=== PATIENT | female | born 1990 | race Caucasian/White ===

== ENCOUNTER 2019-11-02 23:17 | Emergency (ER) | payer SELFPAY ==
[2019-11-02 23:20] VITALS: BP 121/89; PULSE 94; RESP 16; TEMP 37; O2SAT 98
--- NOTE | 2019-11-02 23:27 | ED.GENADUL_ITS ---
Discharge Plan Disposition Patient Disposition: HOME Condition: Improving Discharge Details Chief Complaint: Allergic Clinical Impression: Allergic reaction Primary Care Provider: Tim Kim ED Provider: Ron Mcrae Home Meds and New Rx's Prescriptions: New prednisone 20 mg tablet 20 mg PO DAILY Qty: 3 RF: 0 Continued amitriptyline 10 mg Tablet 20 mg PO QHS RF: 0 gabapentin 300 mg Capsule 900 mg PO TID RF: 0 Hydroxycut 1 tab PO TID RF: 0 No Action paroxetine HCl 20 mg Tablet 20 mg PO DAILY RF: 0 Discharge Instructions Instructions: General Allergic Reaction (ED) Additional Instructions: Home to rest today. I recommend you place Paxil on hold until he can discuss further use with your prescribing physician. Please take prednisone as prescribed for 3 days. You may continue the use of Benadryl 25 mg every 4-6 hours as needed for itching or throat swelling. Return if you feel you have difficulty breathing, increased throat swelling, change to voice, or any other acute concerns. Medical Decision Making 29-year-old female presents from home with approximately 1 hour of sensation of tongue swelling and slight difficulty swallowing. No change to voice and no difficulty breathing. She notes that she started Paxil, dose #2 was this morning, no other suspicious food contacts or new medications. She arrives with unremarkable vital signs, reassuring examination. Does appear consistent with mild allergic reaction patient given parenteral fluids, steroids, histamine elise. Patient improved following medications. I will place her on a additional 2 days of prednisone to prevent recrudescence of symptoms. I recommended that she place Paxil (she has only had 2 doses) on hold and she will discuss further use with the prescribing physician. HPI General Mode of arrival: ambulatory . Date/Time Provider Initiated Documentation: 11/02/19 23:18 . Limitations to Documentation: no limitations . Information obtained by: patient . History of Present Illness 29 year old F presents to the emergency department with the chief complaint of Tongue swelling, no difficulty breathing or change to voice, described as moderate, Quality is described as constant, and is localized to the face and mouth. Patient reports no radiation. Patient started experiencing this hour(s) and it has been constant. No relieving factors improve symptom(s), No exacerbating factors reported . Patient notes denies chest pain, cough, headaches, loss of appetite, nausea/vomiting, shortness of breath and syncope. Patient did receive the following treatments prior to arrival, none Related Data Home Medications Medication Instructions Recorded Confirmed Hydroxycut 1 tab PO TID 11/02/19 amitriptyline 20 mg PO QHS 11/02/19 11/02/19 gabapentin 900 mg PO TID 11/02/19 11/02/19 paroxetine HCl 20 mg PO DAILY 11/02/19 11/02/19 prednisone 20 mg PO DAILY #3 tab 11/03/19 Previous Rx's Medication Instructions Recorded prednisone 20 mg PO DAILY #3 tab 11/03/19 Allergies Allergy/AdvReac Type Severity Reaction Status Date / Time ibuprofen Allergy Severe THROAT Unverified 11/11/17 18:12 SWELLS codeine Allergy Intermediate HIVES Unverified 11/11/17 18:12 penicillin G Allergy Intermediate RASH,HIVES Unverified 11/11/17 18:12 General Stated Complaint: Allergic FRITZ: 2 Review of Systems Narrative: 6 systems reviewed and otherwise negative. Recently started Paxil, dose #2 was this morning. No other new medications, no suspicious food ingestions. [facility] Social History Smoking/Tobacco Use Status: Current every day Tobacco Type: cigarettes Alcohol Intake: current Alcohol Intake frequency: holidays/special occasions only Drug use: Current Sobriety Substance use type: marijuana Do you feel safe at home: Yes Do you feel safe in your relationship?: Yes Exam Narrative Exam Narrative: GEN: awake, alert, oriented 3. Pleasant, well groomed, interactive. HEAD: Normocephalic, atraumatic ENT: Mucous membranes moist, oropharynx unremarkable without evidence of significant soft tissue swelling or asymmetry, uvula midline, external ear exam unremarkable EYES: PERRL, EOMI NECK: Full ROM, no UMBERTO, no menigismus CHEST/RESP: Nontender, clear to auscultation bilateral, no wheeze/rhonchi/rales CARDIOVASCULAR: RRR, no murmur, rub matt. 2+ Rad pulse bilateral ABDOMEN: Soft, nontender, no mass. +Bowel sounds EXT: Full ROM, no edema, no rash Neuro: Grossly normal neurologic exam, conversant, interactive. Psych: Speech fluent, thoughts congruent, affect normal Course Vital Signs Vital signs: Vital Signs Temperature 37.0 C 11/02/19 23:20 Pulse 94 H 11/02/19 23:20 Respiratory Rate 16 11/02/19 23:20 Blood Pressure 121/89 11/02/19 23:20 Pulse Oximetry 98 11/02/19 23:20 Temperature 37.0 C 11/02/19 23:20 Temperature Source Skin 11/02/19 23:20 Pulse 94 H 11/02/19 23:20 Respiratory Rate 16 11/02/19 23:20 Blood Pressure 121/89 11/02/19 23:20 Blood Pressure Position Sitting 11/02/19 23:20 Pulse Oximetry 98 11/02/19 23:20 Oxygen Delivery Method Room Air 11/02/19 23:20 Oxygen Flow Rate 0 11/02/19 23:20
[2019-11-02] MEDS: methylPREDNISolone SUCC 125 MG VIAL IVP (23:34)
[2019-11-02] MEDS: diphenhydrAMINE 50 MG/ML VIAL 25 MG IVP (23:34)
[2019-11-02] MEDS: Normal Saline 1,000 ML 1000 ML IV (23:34)
--- NOTE | 2019-11-03 00:11 | NUR.NOTE ---
Tongue swelling decreased. Pt reports feeling better. NS continues to infuse.
[2019-11-03 00:29] VITALS: BP 116/69; PULSE 81; RESP 16; TEMP 36.8; O2SAT 99
== END 2019-11-03 00:35 | disposition home or self-care (01) ==
LOC: ER 11-03 00:36
PROVIDERS: Emergency Provider Emergency Medicine; PCP Internal Medicine
DX: R13.10 Dysphagia, unspecified (principal); T43.225A Adverse effect of selective serotonin reuptake inhibitors, initial encounter
CPT/HCPCS: 99283; J1200; J2930

== ENCOUNTER 2020-02-07 16:49 | Observation (INO) | payer MEDICAID, SELFPAY ==
[2020-02-07 16:54] VITALS: BP 108/57; PULSE 81; RESP 16; TEMP 36.6; O2SAT 98
--- NOTE | 2020-02-07 17:07 | W.ED.GENAD ---
Discharge Plan Disposition Patient Disposition: [facility] INPATIENT Condition: Stable Discharge Details Chief Complaint: PsychEval Clinical Impression: Depression Primary Care Provider: Tim Kim ED Provider: Ady Christian Home Meds and New Rx's Prescriptions: No Action pregabalin [Lyrica] 75 mg capsule 75 mg PO BID RF: 0 lorazepam [Ativan] 0.5 mg tablet 0.5 mg PO ONCE PRNRF: 0 sumatriptan succinate [Imitrex] 100 mg tablet See Rx Instructions PO .COMPLEX RF: 0 clindamycin phosphate 1 % gel 1 applic TP BID RF: 0 tretinoin 0.1 % cream 1 applic TP QHS RF: 0 sertraline 50 mg tablet 50 mg PO DAILY RF: 0 Medical Decision Making 29 yo female with hx of depression states it has been worsening over a week or so and has had thoughts of self harm hasn't done anything to harm herself. Denies drug use, is currently caox4 with no focal deficits denies fevers no infectious symptoms and no findings to suggest underlying endocrine or infectious etiology. She was seen by mental health already and is a voluntary psychiatric bed placement. per [facility] no beds available will admit here until psych bed found Differential Diagnosis Differential Diagnosis: depression, si Medical Records Medical records reviewed: Yes I reviewed the patient's medical records. Lab Data Lab results reviewed: Yes I reviewed the patient's lab results. HPI General Mode of arrival: ambulatory. Date/Time Provider Initiated Documentation: 02/07/20 16:57. Limitations to Documentation: no limitations. Information obtained by: patient. History of Present Illness 29 year old F presents to the emergency department with the chief complaint of depression , described as moderate, No relieving factors improve symptom(s), No exacerbating factors reported . Patient did receive the following treatments prior to arrival, none Related Data Home Medications Medication Instructions Recorded Confirmed clindamycin phosphate 1 % topical 1 applic TP BID 01/23/20 02/07/20 gel lorazepam 0.5 mg tablet 0.5 mg PO ONCE PRN tab 01/23/20 02/07/20 pregabalin 75 mg capsule 75 mg PO BID 01/23/20 02/07/20 sertraline 50 mg tablet 50 mg PO DAILY 01/23/20 02/07/20 sumatriptan succinate 100 mg tablet See Rx Instructions PO .COMPLEX 01/23/20 02/07/20 tretinoin 0.1 % topical cream 1 applic TP QHS 01/23/20 02/07/20 Allergies Allergy/AdvReac Type Severity Reaction Status Date / Time ibuprofen Allergy Severe THROAT Unverified 02/07/20 16:58 SWELLS paroxetine [From Paxil] Allergy Severe Verified 02/07/20 16:58 codeine Allergy Intermediate HIVES Unverified 02/07/20 16:58 penicillin G Allergy Intermediate RASH,HIVES Unverified 02/07/20 16:58 methylphenidate Allergy Mild Verified 02/07/20 16:58 [From Concerta] General Stated Complaint: PsychEval FRITZ: 2 Review of Systems All systems reviewed & are unremarkable except as noted in HPI and below Constitutional Constitutional: Denies chills, Denies fever(s) and Denies weakness Cardiovascular Cardiovascular: Denies chest pain and Denies dyspnea Respiratory Respiratory: Denies cough and Denies dyspnea Gastrointestinal Gastrointestinal: Denies abdominal pain, Denies nausea and Denies vomiting Musculoskeletal Musculoskeletal: Denies joint swelling Neurologic Neurologic: Denies weakness [facility] Medical History Abnormal weight gain (Acute) Acute recurrent otitis media (Acute) ADHD (Acute) Anxiety (Chronic) Bilateral leg pain (Acute) Drug abuse, IV (Acute) History of depression (Acute) Hx of varicella (Acute) Idiopathic peripheral neuropathy (Acute) Migraine (Chronic) Opioid dependence (Acute) Panic disorder (Acute) Tobacco use (Acute) Social History Smoking/Tobacco Use Status: Current every day Tobacco Type: cigarettes Alcohol Intake: current Alcohol Intake frequency: a few times a week Drug use: Current Sobriety Substance use type: marijuana Details: pot once a month for leg pain. Do you feel safe at home: Yes Do you feel safe in your relationship?: Yes Exam Const General: no acute distress Orientation: alert HENMT Head: normal to inspection Ears: external ears normal General nose exam: external nose normal Mouth: moist mucous membranes Eyes General: appearance normal, both eyes and all related structures Neck Neck: normal visual inspection Resp Effort & Inspection: normal respiratory effort and able to speak in complete sentences Cardio Rate: regular rate Skin General skin exam: no rashes or lesions noted Neuro General: patient alert and patient oriented x3 Extrem General: normal to inspection Course Vital Signs Vital signs: Vital Signs Temperature 36.6 C 02/07/20 16:54 Pulse 81 02/07/20 16:54 Respiratory Rate 16 02/07/20 16:54 Blood Pressure 108/57 L 02/07/20 16:54 Pulse Oximetry 98 02/07/20 16:54 Temperature 36.6 C 02/07/20 16:54 Temperature Source Skin 02/07/20 16:54 Pulse 81 02/07/20 16:54 Respiratory Rate 16 02/07/20 16:54 Respiratory Effort Non-Labored 02/07/20 16:54 Blood Pressure 108/57 L 02/07/20 16:54 Blood Pressure Position Sitting 02/07/20 16:54 Pulse Oximetry 98 02/07/20 16:54 Oxygen Delivery Method Room Air 02/07/20 16:54 Oxygen Flow Rate 0 02/07/20 16:54 Pain Level 7 02/07/20 16:54 Comment 02/07/20 16:54
[2020-02-07 17:25] LABS: Bilirubin Negative (Negative); Blood Trace-intact (Negative); Clarity Clear (Clear); Glucose Negative (Negative); Ketones Trace mg/dL (Negative); Leukocyte Esterase Negative (Negative); Nitrite Negative (Negative); Specific Gravity 1.025 (1.005-1.025); pH 6.5 (5-8)
[2020-02-07 17:29] LABS: *AMPHETAMINES SCREEN URINE Negative (Negative); *BARBITURATES SCREEN URINE Negative (Negative); *BENZODIAZEPINES SCREEN URINE Negative (Negative); Cannabinoids THC Negative (Negative); Cocaine Screen,Urine Negative (Negative); METHADONE URINE SCREEN Negative (Negative); OPIATES URINE SCREEN Negative (Negative)
[2020-02-07 17:30] LABS: Tricyclic Antidepressants Negative (Negative)
--- NOTE | 2020-02-07 17:32 | HPE_ITS ---
Date of service: 02/07/20 Time of Service: 17:32 Assessment and Plan Assessment and plan (1) Suicidal ideation: Start date: 02/07/20 Status: Acute Assessment and plan: This is a 29-year-old lady with depression anxiety chronically who has had increasing suicidal ideation without action but a plan taking all of her medications over the last week. This was worsening and she reported to the ED for evaluation with no help to place for voluntary inpatient psychiatric evaluation. She is medically cleared for placement. She will be maintained on observation overnight. (2) Depression with anxiety: Status: Chronic Assessment and plan: Patient will be maintained on her usual medications during her hospital stay. She will be given lorazepam as needed with 1 dose given in the ED. (3) Idiopathic peripheral neuropathy: Status: Chronic Assessment and plan: Continue Lyrica daily with naproxen as needed. (4) Migraine: Status: Chronic Assessment and plan: Patient had sumatriptan p.o. in the ED and this will be continued as needed. Qualifiers: Migraine type: without aura Status migrainosus presence: without status migrainosus Intractability: not intractable Qualified Code(s): G43.009 - Migraine without aura, not intractable, without status migrainosus (5) Opioid dependence: Status: Chronic Assessment and plan: Patient has a history of previous IV opiate abuse documented sequela. She is not actively using and we donot expect withdrawal. Qualifiers: Substance use status: in remission Qualified Code(s): F11.21 - Opioid dependence, in remission History of Present Illness History of Present Illness Chief Complaint: Suicidal ideation Narrative: This is a 29-year-old female patient with chronic depression and anxiety with previous opioid use but not actively, who had thoughts of self-harm over the last week. She had not done any to harm herself. She did state that her plan was to take all of her pills. She has no sedating medications at home. She does have idiopathic peripheral neuropathy on Lyrica and does have migraines for which she takes oral sumatriptan. She was seen in the ED and medically cleared for inpatient psychiatric care but with no bed available was observed overnight. She did have some myalgias and a mild headache which were treated upon admission. She asked for naproxen which was not on her medication list and with allergy ibuprofen with throat swelling, she states she does take naproxen daily without reaction. Upon interview she was calm and cooperative checking her iP britta frequently with a 7-year-old child at home. She was allowed to keep her iPhone in the room as a calming measure. Review of Systems Narrative: 13 point review of systems otherwise unrevealing or stable. Patient is thin and she does smoke tobacco but not want nicotine supplement stating she was allergic to the adhesive. [facility] Medical History Abnormal weight gain (Acute) Acute recurrent otitis media (Acute) ADHD (Acute) Anxiety (Chronic) Bilateral leg pain (Acute) Drug abuse, IV (Acute) History of depression (Acute) Hx of varicella (Acute) Idiopathic peripheral neuropathy (Acute) Migraine (Chronic) Opioid dependence (Acute) Panic disorder (Acute) Tobacco use (Acute) Social History Smoking/Tobacco Use Status: Current every day Tobacco Type: cigarettes Alcohol Intake: current Alcohol Intake frequency: a few times a week Drug use: Current Sobriety Substance use type: marijuana Details: pot once a month for leg pain. Do you feel safe at home: Yes Do you feel safe in your relationship?: Yes Meds Home Medications and Allergies Home Medications Medication Instructions Recorded Confirmed Type clindamycin phosphate 1 % topical 1 applic TP BID 01/23/20 02/07/20 History gel lorazepam 0.5 mg tablet 0.5 mg PO ONCE PRN tab 01/23/20 02/07/20 History pregabalin 75 mg capsule 75 mg PO BID 01/23/20 02/07/20 History sertraline 50 mg tablet 50 mg PO DAILY 01/23/20 02/07/20 History sumatriptan succinate 100 mg tablet See Rx Instructions PO .COMPLEX 01/23/20 02/07/20 History tretinoin 0.1 % topical cream 1 applic TP QHS 01/23/20 02/07/20 History naproxen 250 mg PO BID PRN 02/07/20 02/07/20 History Allergies Allergy/AdvReac Type Severity Reaction Status Date / Time ibuprofen Allergy Severe THROAT Unverified 02/07/20 16:58 SWELLS paroxetine [From Paxil] Allergy Severe Verified 02/07/20 16:58 codeine Allergy Intermediate HIVES Unverified 02/07/20 16:58 penicillin G Allergy Intermediate RASH,HIVES Unverified 02/07/20 16:58 methylphenidate Allergy Mild Verified 02/07/20 16:58 [From Concerta] Exam Narrative Exam Narrative: General: Patient is thin, in no acute distress and alert and oriented x3. She flattened affect with poor eye contact and fidgety. HEENT: Normocephalic with face atraumatic except for nose ring. Eyes with pupils equal and reactive to light symmetrically, extraocular movement intact and sclera anicteric. Oropharynx with moist mucosa and fair dentition. External ears normal. Nose without lesions and patent nares with no discharge. Neck: Supple without JVD and no palpable thyromegaly. Back: Posture with no CVA tenderness. Lungs: Clear to auscultation and percussion. Heart: Regular rate and rhythm with no murmurs or gallops.. Breast: Exam deferred. Abdomen: Scaphoid contour, no palpable hepatosplenomegaly and nontender. No palpable masses. Bowel sounds positive in all quadrants. Genitalia/rectal: Exam deferred. Extremities: No clubbing cyanosis or edema. All joints have normal range of motion. Skin: Normal color, warm and dry. Neuro: Cranial nerves II to XII grossly intact, no focalizing motor deficits. Psych testing not performed. Psych: Very anxious and fidgety, depressed mood, no abnormal thought processes. Flattened affect with poor eye contact as stated. Remote and recent memory intact. Results Labs Result diagrams: 02/07/20 17:25 02/07/20 17:25 Labs: Laboratory Results - last 24 hr 02/07/20 17:10 Urine Opiates Screen Negative Urine Methadone Screen Negative Ur Barbiturates Screen Negative Ur Tricyclics Screen Negative Ur Amphetamines Screen Negative U Benzodiazepines Scrn Negative Urine Cocaine Screen Negative Ur THC Screen Negative Last Vital Signs Temp 36.6 C 02/07/20 16:54 Pulse 81 02/07/20 16:54 Resp 16 02/07/20 16:54 BP 108/57 L 02/07/20 16:54 Pulse Ox 98 02/07/20 16:54 COVID-19 Screening Have you,or household,traveled outside [place] in last 14 days?: No Had IN PERSON contact w/suspected or confirmed C-19 person: No
--- NOTE | 2020-02-07 17:40 | PDOC.CMSAFED ---
- If Service Date Differs Date of service: 02/07/20 Time of Service: 17:40 Care Management Safety Plan Radha is a 29 year old female presenting with depression and suicidal ideation. She is currently in the ER, although plans to admit her to med/surge floor while awaiting placement. She is voluntarily seeking placement at this time. Once pt is medically cleared, CM will meet with her to establish individual goals and wishes for treatment. In the interim, please note safety plan below to guide patient care while awaiting further assessment. SAFETY PLAN: 1. Will remain on suicide precautions and in paper clothes. 2. Will remain in room under direct supervision of one-on-one staff at all times provided by MELVA, [employer] wire worker. 3. May have paper cups, plates, finger foods as well as a cardboard spoon with which to eat meals. 4. Follow [facility] Management of the Admitted Behavioral Health Patient policy. 5. Comfort bath system only. 6. No personal belongings 7. No visitors. 8. No phone calls at this time. 9. Due to VOLUNTARY status, if patient wishes to leave [facility], the [facility] lubrication worker must be contacted to re-evaluate patient prior to patient exiting the building. If deemed appropriate for inpatient psychiatric care, safety plan will be established with patient, and care team, to adhere to patient goals, identify restrictions based on behavioral status, address nutrition, and determine allowed personal belongings, tools for hygiene and personal care. As well plan will determine level of activity including ambulation, level of supervision, visitors, and determine privileges based on level of acuity, behaviors and level of engagement by patient.
[2020-02-07 17:48] LABS: Abs Immature Grans 0.02 10^3/uL (0.0-0.06); Absolute Basophil Count 0.03 10^3/uL (0.0-0.2); Absolute Eosinophil Count 0.03 10^3/uL (0.0-0.7); Absolute Monocyte Count 0.53 10^3/uL (0.1-0.8); Absolute Neutrophil Count 5.07 10^3/uL (1.2-6.7); Basophils % 0.4; Eosinophils % 0.4; HCT 42.7 % (36.0-46.0); HGB 14.4 g/dL (11.2-15.7); Immature Grans % 0.3; Lymphocytes % 28.8; MCH 32.1 pg (27.0-33.0); MCHC 33.7 % (32.0-36.0); MCV 95.1 fL (80-95); MPV 10.9 fL (8.0-11.0); Monocytes % 6.6; Neutrophils % 63.5; Nucleated RBC 0 %; Platelet Count 206 10^3/uL (130-400); RBC 4.49 10^6/uL (3.93-5.22); RDW 12.1 % (11.7-14.6); RDW-SD 42.3 fL; WBC 7.98 10^3/uL (4.4-10.8)
[2020-02-07] MEDS: SUMAtriptan 50 MG TAB PO (17:50)
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
[2020-02-07 18:01] LABS: Bacteria Moderate HPF (Negative); C & S Indicated? No/Sq. Contamination; Casts Negative LPF (Negative); Crystals Negative HPF (Negative); Epithelial Cells Moderate HPF (Negative); Mucus Heavy (Negative); RBC 0-2 HPF (0-2); WBC 0-2 HPF (0-5)
[2020-02-07 18:06] LABS: ALT 16 U/L (14-59); AST 13 U/L (15-37); Acetaminophen < 2 ug/mL (10-30); Albumin 4.1 g/dL (3.4-5.0); Alkaline Phosphatase 58 U/L (46-116); Anion Gap 7.6 mmol/L (3-11); BUN 14 mg/dL (7-18); Bilirubin, Total 0.4 mg/dL (0.2-1.0); CO2 28.4 mmol/L (21.0-32.0); CREATININE 0.81 mg/dL (0.55-1.02); Calcium 8.7 mg/dL (8.5-10.1); Chloride 104 mmol/L (98-107); Glucose 75 mg/dL (74-106); Potassium 3.8 mmol/L (3.5-5.1); Sodium 140 mmol/L (136-145); TSH (W/Ref FT4) 1.52 uIU/mL (0.36-3.74); Total Protein 7.2 g/dL (6.4-8.2)
[2020-02-07 18:15] VITALS: BP 111/67; PULSE 68; RESP 16; TEMP 36.7; O2SAT 100
[2020-02-07 18:18] LABS: ETHANOL BLOOD < 3.0 mg/dL (<3)
[2020-02-07] MEDS: Pregabalin 25 MG CAP 75 MG PO (20:54)
[2020-02-08 08:19] LABS: COVID-19 RT-PCR UVMMC Result Negative (Negative)
[2020-02-08 08:31] VITALS: BP 99/63; PULSE 62; RESP 16; TEMP 37.1; O2SAT 100
[2020-02-08] MEDS: Pregabalin 25 MG CAP 75 MG PO ×2 (08:55→20:23)
[2020-02-08] MEDS: Sertraline 50 MG TAB PO (08:55)
--- NOTE | 2020-02-08 10:49 | PHA.REVIEW ---
Pharmacy Admission Review - Admission Clinical Review (Last Reviewed 02/07/20 @ 17:33 by Parviz Shrestha) Suicidal ideation (Acute) ibuprofen Allergy (Severe, Unverified 02/07/20 16:58) THROAT SWELLS paroxetine [From Paxil] Allergy (Severe, Verified 02/07/20 16:58) codeine Allergy (Intermediate, Unverified 02/07/20 16:58) HIVES penicillin G Allergy (Intermediate, Unverified 02/07/20 16:58) RASH,HIVES methylphenidate [From Concerta] Allergy (Mild, Verified 02/07/20 16:58) Height 5 ft 2 in Weight 57.153 kg - Renal Dosing Renal Dosing: BUN 14 mg/dL (7-18) 02/07/20 17:25 Creatinine 0.81 mg/dL (0.55-1.02) 02/07/20 17:25 Medications needing adjustments: Reviewed (CrCl ~82.5 mL/min, current meds okay) - Anticoagulation Anticoagulation: Hgb 14.4 g/dL (11.2-15.7) 02/07/20 17:25 Hct 42.7 % (36.0-46.0) 02/07/20 17:25 Plt Count 206 10^3/uL (130-400) 02/07/20 17:25 Creatinine 0.81 mg/dL (0.55-1.02) 02/07/20 17:25 DVT Prohphylaxis: N/A Therapeutic Anticoagulation: N/A - Opiate Usage Evaluate Pain Scale/Pains Meds: N/A - Relevant Labs Sodium 140 mmol/L (136-145) 02/07/20 17:25 Potassium 3.8 mmol/L (3.5-5.1) 02/07/20 17:25 Chloride 104 mmol/L (98-107) 02/07/20 17:25 Electrolytes, C-Reactive P, ESR: Reviewed - DM Control DM Control: Glucose 75 mg/dL (74-106) 02/07/20 17:25 Insulin Dosing: N/A - Heart Failure/[place] EF%, MAIKEL's, B-Blockers, Diuretics: N/A - BP Control BP Control: Blood Pressure 99/63 If elevated: N/A (BP slightly low) - Qtc Review If Elevated: N/A (No recent EKG labs) - IV to PO Switch IV Medications: N/A (All PO meds) - Home Meds Home Med List reviewed: Reviewed (Sertraline may enhance the antiplatelet effect of ibuprofen; ibuprofen may diminish the therapeutic effect of sertraline.) Relevent Home Meds Not ordered & why?: Clindamycin, lorazepam, tretinoin, Abilify (prescribed yesterday per PCPs office but didn't pickling tank operator from pharmacy yet, provider aware/wanted to hold off for now) - Current meds Current Medication Order Review: Reviewed (Increased risk of bleeding with naproxen and sertraline) - Comments Comments/Follow Ups: Monitor BP (has been slightly low). Per MD patient is medically cleared and waiting on inpatient psychiatric care, will monitor here overnight.
--- NOTE | 2020-02-08 11:55 | MHPN_ITS ---
Date of service: 02/08/20 Time of Service: 11:55 Mental Health Crisis Note Presenting Issue How did you arrive at the ED and why did you come: Radha arrived yesterday at the request of the [facility] that had screened her at her PCP office. Precipitating Factors Radha reports that she still is SI and rates her SI at an 8 today on a scale of 0-10. She is not presenting any signs of delusions. Disposition BEHAVIOR: Radha is cooperative and friendly. She answers questions and is still seeking a voluntary admission. EYE CONTACT: Eye contact is normal and appropriate. MOOD: Radha's mood appears depressed. AFFECT: Affect is mostly flat but can show appropriate emotions during conversation. APPETITE: Radha reported poor appetite. SLEEP(trouble falling/staying asleep: Radha reported one minute I can't sleep and the next I want to sleep all the time. Plan Will continue to seek hospital placement. Referral sent to [facility] and by 2pm they had called back seeking more information. All other hospitals are full. If not placed today Radha will continue to get a daily check in by .
--- NOTE | 2020-02-08 14:41 | CMSP_ITS ---
- If Service Date Differs Date of service: 02/08/20 Time of Service: 14:41 Care Management Safety Plan VOLUNTARY FOR INPATIENT PSYCHIATRIC STABILIZATION. Patient is appropriate in all interactions since arriving at [facility]; Pt has demonstrated appropriate coping and communication skills, has articulated her needs and concerns and is fully engaged during staff interactions. Safety plan has been established with patient, and care team, to adhere to patient goals, identify restrictions based on behavioral status, address nutrition, and determine allowed personal belongings, tools for hygiene and personal care. Determine level of activity including ambulation, level of supervision, visitors, and determine privileges based on behaviors and level of engagement by pt. SAFETY PLAN: 1. Will remain on suicide precautions and in paper clothes. 2. Will remain in room under direct supervision of one-on-one staff at all times provided by [employer]; MELVA, BEVELER supervisor wood crew. 3. May have paper cups, plates, finger foods as well as a cardboard spoon with which to eat meals. 4. Follow [facility] Management of the Admitted Behavioral Health Patient policy. 5. Patient allowed to shower with supervision. 6. No personal belongings with the exception of her cell phone so she can remain in contact with her son. 7. Visitors-No visitors at this time. 8. Activities: Colored pencils, paper, books, television, and other activities at nursing discretion. 9. Bathroom privileges: Allowed to use the bathroom in her room without supervision. 10. Phone: Patient is allowed her cell phone. 11. Due to VOLUNTARY status, if patient wishes to leave [facility], the [facility] liner worker must be contacted to re-evaluate patient prior to patient exiting the building. Patient is currently voluntarily at [facility] and seeking inpatient admission when a bed becomes available. [facility] Frontline Air Defense Artillery Officer will continue seeking placement. Please contact the Senior Contracts Manager Disbursing Officer ([phone]) and [facility] Air Defense Artillery Officer ([phone]) for any needed changes in the Safety Plan. Safety plan has been provided to interdepartmental care team.
--- NOTE | 2020-02-08 15:58 | CMPROGNOTE_ITS ---
- If Service Date Differs Date of service: 02/08/20 Time of Service: 15:58 Care Management Progress Note S/O: Radha meets with Sintia [facility] crisis screener, via zoom with CM present. She is pleasant and easily engages in conversation. Radha states she wants to sleep all the time, is eating very little, and continues to report suicidal ideation. CM spends some time with Radha answering some of the questions she has about hospitalization at a psych facility. Gaby Sadler accepts a r tanikaerral for review. CM will continue to follow. A: Radha is a 29 year old female admitted to [facility] on 02/07/2020 for suicide ideation and depression with anxiety. P: Radha will remain at [facility] while [facility] continues to seek a voluntary placement. CM will continue to follow.
--- NOTE | 2020-02-08 15:58 | PDOC.CMPRO ---
- If Service Date Differs Date of service: 02/08/20 Time of Service: 15:58 Care Management Progress Note S/O: Radha meets with Sintia [facility] crisis screener, via zoom with CM present. She is pleasant and easily engages in conversation. Radha states she wants to sleep all the time, is eating very little, and continues to report suicidal ideation. CM spends some time with Radha answering some of the questions she has about hospitalization at a psych facility. Gaby Loyola accepts a referral for review. CM will continue to follow. A: Radha is a 29 year old female admitted to [facility] on 02/07/2020 for suicide ideation and depression with anxiety. P: Radha will remain at [facility] while [facility] continues to seek a voluntary placement. CM will continue to follow.
--- NOTE | 2020-02-08 15:58 | W.PM.PROGNOT ---
Date of Service Date of service: 02/08/20 Time of Service: 15:58 Assessment and Plan Assessment and plan (1) Suicidal ideation: Status: Acute Assessment and plan: continue suicidal safety precautions. mental health consulted, awaiting inpatient psychiatric placement on EE (2) Depression with anxiety: Status: Chronic Assessment and plan: continue sertraline and lyrica discussed with DR Lyons who is in agreement Subjective Subjective Patient reports: no new complaints, tolerating liquids well and tolerating a regular diet Exam Const General: cooperative, healthy appearing, comfortable, no acute distress and well groomed Nutritional Appearance: average body habitus Orientation: alert, awake and oriented x3 HENMT Head: normal to inspection, normocephalic and atraumatic General nose exam: other (piercing) Mouth: oral mucosae normal Resp Effort & Inspection: normal respiratory effort Cardio Jugular venous pressure: other Other: pink warm dry and well perfused Skin General skin exam: no rashes or lesions noted Neuro General: patient alert, patient awake and patient oriented x3 Cranial Nerves: CN's II-XI intact bilaterally Extrem General: normal to inspection and full ROM Psych Appearance: grossly normal Mental Status: mental status grossly normal Speech and Movement: speech and movement normal Mood: congruent mood Affect: normal affect Attitude: cooperative Thought Process: normal Thought Content: normal Objective Objective Clinical Data: Abnormal lab results 02/07/20 02/07/20 02/07/20 Range/Units 17:10 17:25 17:25 MCV 95.1 H (80-95) fL AST 13 L (15-37) U/L Urine Ketones Trace H (Negative) mg/dL Urine Blood Trace-intact H (Negative) Urine Urobilinogen 1.0 H (Up TO 0.2) EU/dL Vital Signs Temperature 37.1 C 02/08/20 08:31 Temperature Source Temporal Artery Scan 02/08/20 08:31 Pulse 62 02/08/20 08:31 Pulse Rhythm Regular 02/08/20 14:33 Respiratory Rate 16 02/08/20 08:31 Respiratory Effort Non-Labored 02/08/20 14:33 Respiratory Depth Normal 02/08/20 14:33 Respiratory Pattern Normal 02/08/20 14:33 Blood Pressure 99/63 L 02/08/20 08:31 Blood Pressure Position Sitting 02/07/20 16:54 Pulse Oximetry 100 02/08/20 08:31 Oxygen Delivery Method Room Air 02/07/20 16:54 Oxygen Flow Rate 0 02/07/20 16:54 Pain Level 5 02/08/20 08:31 Comment 02/07/20 18:40 Intake & Output 02/07/20 02/08/20 02/08/20 23:59 11:59 23:59 Weight 57.153 kg Other: Comment pt voids independently Laboratory Results WBC 7.98 10^3/uL (4.4-10.8) 02/07/20 17:25 RBC 4.49 10^6/uL (3.93-5.22) 02/07/20 17:25 Hgb 14.4 g/dL (11.2-15.7) 02/07/20 17:25 Hct 42.7 % (36.0-46.0) 02/07/20 17:25 MCV 95.1 fL (80-95) H 02/07/20 17:25 MCH 32.1 pg (27.0-33.0) 02/07/20 17:25 MCHC 33.7 % (32.0-36.0) 02/07/20 17:25 RDW 12.1 % (11.7-14.6) 02/07/20 17:25 Plt Count 206 10^3/uL (130-400) 02/07/20 17:25 MPV 10.9 fL (8.0-11.0) 02/07/20 17:25 Immature Gran % 0.3 02/07/20 17:25 Neutrophils % 63.5 02/07/20 17:25 Lymphocytes % 28.8 02/07/20 17:25 Monocytes % 6.6 02/07/20 17:25 Eosinophils % 0.4 02/07/20 17:25 Basophils % 0.4 02/07/20 17:25 Absolute Neutrophils 5.07 10^3/uL (1.2-6.7) 02/07/20 17:25 Absolute Lymphocytes 2.30 10^3/uL (1.2-3.4) 02/07/20 17:25 Absolute Monocytes 0.53 10^3/uL (0.1-0.8) 02/07/20 17:25 Absolute Eosinophils 0.03 10^3/uL (0.0-0.7) 02/07/20 17:25 Absolute Basophils 0.03 10^3/uL (0.0-0.2) 02/07/20 17:25 Sodium 140 mmol/L (136-145) 02/07/20 17:25 Potassium 3.8 mmol/L (3.5-5.1) 02/07/20 17:25 Chloride 104 mmol/L (98-107) 02/07/20 17:25 Carbon Dioxide 28.4 mmol/L (21.0-32.0) 02/07/20 17:25 Anion Gap 7.6 mmol/L (3-11) 02/07/20 17:25 BUN 14 mg/dL (7-18) 02/07/20 17:25 Creatinine 0.81 mg/dL (0.55-1.02) 02/07/20 17:25 Estimated GFR/1.73 m2 >= 60.00 (mL/min/1.73m2) 02/07/20 17:25 Glucose 75 mg/dL (74-106) 02/07/20 17:25 Calcium 8.7 mg/dL (8.5-10.1) 02/07/20 17:25 Total Bilirubin 0.4 mg/dL (0.2-1.0) 02/07/20 17:25 AST 13 U/L (15-37) L 02/07/20 17:25 ALT 16 U/L (14-59) 02/07/20 17:25 Alkaline Phosphatase 58 U/L (46-116) 02/07/20 17:25 Total Protein 7.2 g/dL (6.4-8.2) 02/07/20 17:25 Albumin 4.1 g/dL (3.4-5.0) 02/07/20 17:25 TSH 1.52 uIU/mL (0.36-3.74) 02/07/20 17:25 Urine Color Yellow (Yellow) 02/07/20 17:10 Urine Clarity Clear (Clear) 02/07/20 17:10 Urine pH 6.5 (5-8) 02/07/20 17:10 Ur Specific [place] 1.025 (1.005-1.025) 02/07/20 17:10 Urine Protein Negative mg/dL (Negative) 02/07/20 17:10 Urine Ketones Trace mg/dL (Negative) H 02/07/20 17:10 Urine Blood Trace-intact (Negative) H 02/07/20 17:10 Urine Nitrite Negative (Negative) 02/07/20 17:10 Urine Bilirubin Negative (Negative) 02/07/20 17:10 Urine Urobilinogen 1.0 EU/dL (Up TO 0.2) H 02/07/20 17:10 Ur Leukocyte Esterase Negative (Negative) 02/07/20 17:10 Urine RBC 0-2 HPF (0-2) 02/07/20 17:10 Urine WBC 0-2 HPF (0-5) 02/07/20 17:10 Ur Epithelial Cells Moderate HPF (Negative) 02/07/20 17:10 Urine Crystals Negative HPF (Negative) 02/07/20 17:10 Urine Bacteria Moderate HPF (Negative) 02/07/20 17:10 Urine Casts Negative LPF (Negative) 02/07/20 17:10 Urine Mucus Heavy (Negative) 02/07/20 17:10 Ur Culture Indicated? No/sq. contamination 02/07/20 17:10 Urine Glucose Negative mg/dL (Negative) 02/07/20 17:10 Urine Opiates Screen Negative (Negative) 02/07/20 17:10 Urine Methadone Screen Negative (Negative) 02/07/20 17:10 Acetaminophen < 2 ug/mL (10-30) 02/07/20 17:25 Ur Barbiturates Screen Negative (Negative) 02/07/20 17:10 Ur Tricyclics Screen Negative (Negative) 02/07/20 17:10 Ur Amphetamines Screen Negative (Negative) 02/07/20 17:10 U Benzodiazepines Scrn Negative (Negative) 02/07/20 17:10 Urine Cocaine Screen Negative (Negative) 02/07/20 17:10 Ur THC Screen Negative (Negative) 02/07/20 17:10 Ethyl Alcohol < 3.0 mg/dL (<3) 02/07/20 17:25 COVID-19 PCR Negative (Negative) 02/07/20 17:18 Nasopharyn COVID-19 PCR Not Applicable 02/07/20 17:18 Ref Test Perform Site [place] [facility] lab 02/07/20 17:18
[2020-02-08 20:28] VITALS: BP 111/64; PULSE 72; RESP 16; TEMP 36.5; O2SAT 97
[2020-02-09 07:20] VITALS: BP 102/67; PULSE 77; RESP 17; TEMP 36.5; O2SAT 100
[2020-02-09] MEDS: Pregabalin 25 MG CAP 75 MG PO (08:20)
[2020-02-09] MEDS: Sertraline 50 MG TAB PO (08:20)
--- NOTE | 2020-02-09 10:37 | W.PM.DS.N ---
Date of service: 02/09/20 Time of Service: 10:37 DS: Diagnosis Discharge Diagnosis (1) Suicidal ideation: Status: Acute (2) Depression with anxiety: Status: Chronic Discharge Plan Disposition Patient Disposition: [facility] Condition: Stable Discharge Details Chief Complaint: PsychEval Clinical Impression: Depression Reason For Visit: SUICIDE IDEATION, DEPRESSION WITH ANXIETY Admit Date/Time: 02/07/20 17:28 Admit Provider: Parviz Shrestha Attending Provider: Parviz Shrestha Primary Care Provider: Tim Kim ED Provider: Ady Christian Hospital Course Hospital Course: This is a 29-year-old female patient with chronic depression and anxiety with previous opioid use but not actively, who had thoughts of self-harm over the last week. She had not done any to harm herself. She did state that her plan was to take all of her pills. She has no sedating medications at home. She does have idiopathic peripheral neuropathy on Lyrica and does have migraines for which she takes oral sumatriptan. She was seen in the ED and medically cleared for inpatient psychiatric care but with no bed available was observed overnight. She did have some myalgias and a mild headache which were treated upon admission. She asked for naproxen which was not on her medication list and with allergy ibuprofen with throat swelling, she states she does take naproxen daily without reaction. Upon interview she was calm and cooperative checking her iPhone frequently with a 7-year-old child at home. She was allowed to keep her iPhone in the room as a calming measure. She remains hemodynamically and medically stable with no c/o. mental health is following and referrals have been placed for inpatient psychiatric care. Home Meds and New Rx's Prescriptions: Continued pregabalin [Lyrica] 75 mg capsule 75 mg PO BID RF: 0 lorazepam [Ativan] 0.5 mg tablet 0.5 mg PO ONCE PRNRF: 0 sumatriptan succinate [Imitrex] 100 mg tablet See Rx Instructions PO .COMPLEX RF: 0 clindamycin phosphate 1 % gel 1 applic TP BID RF: 0 tretinoin 0.1 % cream 1 applic TP QHS RF: 0 sertraline 50 mg tablet 50 mg PO DAILY RF: 0 naproxen 250 mg Tablet 250 mg PO BID PRNRF: 0 Discharge Instructions Instructions: Depression (DC), Suicide Prevention (DC) Referrals: Tim Kim MD [Primary Care Provider] - (on discharge from inpatient psychiatric treatment) Activity:: Activity as Tolerated Equipment/Supplies:: No Equipment Needed Diet:: As Tolerated Discharge Orders Discharge Orders: Discharge Order (Routine); Ordered 02/09/20 Ordered By: Bartolome Lyons DS: Summary Status at Discharge Functional status at discharge: independent ambulation Overall status at discharge: patient is not back to baseline Mental Status: mental status grossly normal Speech and Movement: speech and movement normal Mood: congruent mood Affect: normal affect Exam Psych Mental Status: mental status grossly normal Speech and Movement: speech and movement normal Mood: congruent mood Affect: normal affect DS: Data Vitals/I&O Vitals and I&O: Vital Signs Temperature 36.5 C 02/09/20 07:20 Temperature Source Temporal Artery Scan 02/09/20 07:20 Pulse 77 02/09/20 07:20 Pulse Rhythm Regular 02/09/20 08:29 Respiratory Rate 17 02/09/20 07:20 Respiratory Effort Non-Labored 02/09/20 08:29 Respiratory Depth Normal 02/09/20 08:29 Respiratory Pattern Normal 02/09/20 08:29 Blood Pressure 102/67 02/09/20 07:20 Blood Pressure Position Sitting 02/07/20 16:54 Pulse Oximetry 100 02/09/20 07:20 Oxygen Delivery Method Room Air 02/09/20 07:20 Oxygen Flow Rate 0 02/09/20 07:20 Pain Level 5 02/09/20 07:20 Comment 02/07/20 18:40 Intake & Output 02/08/20 02/08/20 02/09/20 11:59 23:59 11:59 Other: Comment pt voids independently pt voids independently pt voids independently PFSH Medical History Abnormal weight gain (Acute) Acute recurrent otitis media (Acute) ADHD (Acute) Anxiety (Chronic) Bilateral leg pain (Acute) Drug abuse, IV (Acute) History of depression (Acute) Hx of varicella (Acute) Idiopathic peripheral neuropathy (Chronic) Migraine (Chronic) Opioid dependence (Chronic) Panic disorder (Acute) Tobacco use (Acute) Social History Smoking/Tobacco Use Status: Current every day Tobacco Type: cigarettes Alcohol Intake: current Alcohol Intake frequency: a few times a week Drug use: Current Sobriety Substance use type: marijuana Details: pot once a month for leg pain. Do you feel safe at home: Yes Do you feel safe in your relationship?: Yes
--- NOTE | 2020-02-09 13:28 | CMDISCH_ITS ---
- If Service Date Differs Date of service: 02/09/20 Time of Service: 13:28 LACE Index Scoring Tool - Questions: Length of Stay (in days): 2 Acuity (Admit via E.D.?): Yes E.D. Visits: 2 - Answers: Total Score: 7 Risk of Readmission: Low Risk Care Management Discharge Reason for Hospitalization: Suicidal ideation, depression with anxiety. Discharge Plan: Radha is going to the [facility] today. Transportation is provided via [employer], per [facility] policy. Radha is voluntary and agreeable to going to the [facility] for psychiatric stabilization. She will follow up with her PCP and plan of care upon discharge from the [facility]. Patient/Family Education Needs: Discharge instructions and discussion regarding transport and expectations. Services Needed at Discharge: Psychiatric Facility ([facility]), Transportation ([facility])
--- NOTE | 2020-02-09 13:50 | W.INMHPGNOTE ---
Date of service: 02/09/20 Time of Service: 13:50 Mental Health Crisis Note Presenting Issue How did you arrive at the ED and why did you come: Follow up assessment of Radha today as she waits an admission to [facility]. Precipitating Factors Radha states that her SI comes and goes but is still present. She is not showing signs of delusions. Disposition BEHAVIOR: Radha is pleasant and cooperative with the interview. She feels better now that she has been able ot take a shower. EYE CONTACT: Eye contact is normal. MOOD: Radha seems a bit happier today and less overwhelmed with SI thoughts. AFFECT: Affect appears normal to discussion. APPETITE: Radha reported that her appetite is okay. SLEEP(trouble falling/staying asleep: Radha reported that she woke a few times last night after going to bed after 11p and waking about 5:30 6a. Plan Radha was accepted to the LGBTQ+ unit at [facility] today. She will be transported about 3pm. Signature Clinician's Name/Title: Sintia Carlos MS, [facility] Emergency Services Clinician
--- NOTE | 2020-02-09 14:15 | PDOC.CMSAFE ---
- If Service Date Differs Date of service: 02/09/20 Time of Service: 14:16 Care Management Safety Plan VOLUNTARY FOR INPATIENT PSYCHIATRIC STABILIZATION. Patient is appropriate in all interactions since arriving at [facility]; Pt has demonstrated appropriate coping and communication skills, has articulated her needs and concerns and is fully engaged during staff interactions. Safety plan has been established with patient, and care team, to adhere to patient goals, identify restrictions based on behavioral status, address nutrition, and determine allowed personal belongings, tools for hygiene and personal care. Determine level of activity including ambulation, level of supervision, visitors, and determine privileges based on behaviors and level of engagement by pt. SAFETY PLAN: 1. Will remain on suicide precautions and in paper clothes while at [facility], but will be allowed to wear own clothing, including her undergarments, when preparing to be transported to the [facility]. 2. Will remain in room under direct supervision of one-on-one staff at all times provided by [employer]; MELVA, DIE EQUIPMENT OPERATOR vocational guidance counselor. 3. May have paper cups, plates, finger foods as well as a cardboard spoon with which to eat meals. 4. Follow [facility] Management of the Admitted Behavioral Health Patient policy. 5. Patient allowed to shower with supervision. 6. No personal belongings with the exception of her cell phone so she can remain in contact with her son and her reading glasses. 7. Visitors-No visitors at this time. 8. Activities: Colored pencils, paper, books, television, and other activities at nursing discretion. 9. Bathroom privileges: Allowed to use the bathroom in her room without supervision. 10. Phone: Patient is allowed her cell phone. 11. Due to VOLUNTARY status, if patient wishes to leave [facility], the [facility] retail salesworker must be contacted to re-evaluate patient prior to patient exiting the building. Patient is currently voluntarily at [facility] and seeking inpatient admission when a bed becomes available. [facility] Frontline Hooker Laster will continue seeking placement. Please contact the Air Launch Weapons Technician Elastic Yarn Twister Helper ([phone]) and [facility] Hooker Laster ([phone]) for any needed changes in the Safety Plan. Safety plan has been provided to interdepartmental care team.
== END 2020-02-09 15:07 | disposition short-term general hospital (02) ==
LOC: ER 18:10 → MS 18:38
PROVIDERS: Admitting Provider Family Medicine; Emergency Provider Emergency Medicine; PCP Internal Medicine; Visit Provider Family Medicine
DX: R45.851 Suicidal ideations (principal); F90.2 Attention-deficit hyperactivity disorder, combined type; F32.9 Major depressive disorder, single episode, unspecified; G60.8 Other hereditary and idiopathic neuropathies; F41.0 Panic disorder [episodic paroxysmal anxiety]; F17.210 Nicotine dependence, cigarettes, uncomplicated; G43.009 Migraine without aura, not intractable, without status migrainosus; F11.21 Opioid dependence, in remission
CPT/HCPCS: 36415; 80053; 80307; 81025; 99217; 99219; 99225; 99285; U0003; 80320; 80329; 81003; 81015; 84443; 85025; 99284; G0378

== ENCOUNTER 2020-06-14 20:59 | Outpatient (REF) | payer MEDICAID, SELFPAY ==
[2020-06-17 16:49] LABS: COVID-19 RT-PCR Result NEGATIVE (Negative)
== END 2020-06-14 21:19 ==
LOC: NCHCN 20:59
PROVIDERS: PCP Internal Medicine; Visit Provider Internal Medicine
DX: Z20.828 Contact with and (suspected) exposure to other viral communicable diseases (principal)
CPT/HCPCS: U0003

== ENCOUNTER 2020-07-20 13:55 | Outpatient (REF) | payer MEDICAID, SELFPAY ==
[2020-07-20 14:38] LABS: Iron 142 ug/dL (50-170); Total Iron Binding Capacity 276 ug/dL (250-450); Transferrin Sat 51 % (15-50)
[2020-07-20 14:52] LABS: Ferritin 100 ng/mL (8-252); Vitamin B12 528 pg/mL (193-986)
[2020-07-23 12:43] LABS: Albumin 61.2 % (55.8-66.1); Total Protein 7.3 g/dL (6.3-8.2)
== END 2020-07-20 14:15 ==
LOC: NCHCN 13:55
PROVIDERS: PCP Internal Medicine; Visit Provider Internal Medicine
DX: F90.9 Attention-deficit hyperactivity disorder, unspecified type (principal); M79.604 Pain in right leg; G60.9 Hereditary and idiopathic neuropathy, unspecified; N92.1 Excessive and frequent menstruation with irregular cycle; F41.9 Anxiety disorder, unspecified; M79.605 Pain in left leg
CPT/HCPCS: 82607; 82728; 83540; 83550; 84165

== ENCOUNTER 2020-07-27 18:55 | Outpatient (REF) | payer MEDICAID, SELFPAY ==
[2020-07-30 14:26] LABS: Chlamydia Result Negative (Negative); GC Result Negative (Negative)
== END 2020-07-27 19:15 ==
LOC: LBN 18:55
PROVIDERS: PCP Internal Medicine; Visit Provider Obstetrics & Gynecology
DX: R10.2 Pelvic and perineal pain (principal); Z11.3 Encounter for screening for infections with a predominantly sexual mode of transmission
CPT/HCPCS: 87491; 87591; 87480; 87510; 87660

== ENCOUNTER 2020-08-16 15:47 | Outpatient (REF) | payer MEDICAID, SELFPAY ==
[2020-08-16 21:02] LABS: HCT 43.2 % (36.0-46.0); MCH 32.5 pg (27.0-33.0); MCHC 34.7 % (32.0-36.0); MCV 93.5 fL (80-95); MPV 11.2 fL (8.0-11.0); Platelet Count 215 10^3/uL (130-400); RBC 4.62 10^6/uL (3.93-5.22); RDW-SD 41.3 fL; WBC 7.16 10^3/uL (4.4-10.8)
== END 2020-08-16 15:48 | disposition home or self-care (01) ==
LOC: NCHCN 15:47
PROVIDERS: PCP Internal Medicine; Visit Provider Nurse Practitioner Psychiatric/Mental Health
DX: F32.9 Major depressive disorder, single episode, unspecified (principal); R55 Syncope and collapse
CPT/HCPCS: 82306; 85027

== ENCOUNTER 2020-08-21 01:03 | Outpatient (CLI) | payer MEDICAID, SELFPAY ==
--- NOTE | 2020-08-21 07:30 | DI.US_ITS ---
EXAM: US PELVIS CLINICAL HISTORY: Check IUD position,PELVIC PAIN, R10.2 TECHNIQUE: Ultrasound performed using standard protocol. COMPARISON: US ABDOMEN ULTRASOUND (P) from 12/29/2016 FINDINGS: Pelvic ultrasound was performed transabdominally and transvaginally. Uterus measures 7.7 x 4.2 x 4.9 cm. Endometrial stripe is about 4 millimeters in thickness and appea rs homogeneous. There is an IUD in appropriate position in the endometrial cavity. Myometrium appea rs normal. Right and left ovary show normal follicular appearance. Right ovary measures 44 x 28 x 27 millimeter s and left ovary measures 27 x 19 x 21 millimeters. No free fluid identified in the cul-de-sac. Limited scanning of the kidneys is unremarkable. IMPRESSION: Negative pelvic ultrasound with appropriate position of IUD in the endometrial cavity. DATA REPOSITORY:
== END 2020-08-21 01:04 ==
LOC: DI 01:03
PROVIDERS: PCP Internal Medicine; Visit Provider Obstetrics & Gynecology
DX: R10.2 Pelvic and perineal pain (principal); Z97.5 Presence of (intrauterine) contraceptive device
CPT/HCPCS: 76856

== ENCOUNTER 2020-10-26 14:37 | Emergency (ER) | payer MEDICAID, SELFPAY ==
[2020-10-26 14:43] VITALS: BP 117/71; PULSE 105; RESP 20; TEMP 37.4; O2SAT 97
--- NOTE | 2020-10-26 14:53 | W.ED.GENAD ---
Discharge Plan Disposition Patient Disposition: HOME Condition: Stable Discharge Details Clinical Impression: Migraine Primary Care Provider: Tim Kim ED Provider: Prasanna Roberto Home Meds and New Rx's Prescriptions: Continued methylphenidate HCl [Concerta] 18 mg tablet extended release 24hr 28 mg PO DAILY RF: 0 topiramate 100 mg tablet 100 mg PO QHS Qty: 90 RF: 3 Mirena 20 mcg/24 hours (5 yrs) 52 mg intrauterine device 1 device intrauterine ONCE Qty: 1 RF: 0 sumatriptan 20 mg/actuation spray,non-aerosol 20 mg intranasal Q2H PRN (Reason: migraine headache) Qty: 6 RF: 5 lamotrigine [Lamictal] 25 mg tablet 125 mg PO DAILY RF: 0 lorazepam [Ativan] 0.5 mg tablet 0.5 mg PO ONCE PRNRF: 0 clindamycin phosphate 1 % gel 1 applic TP BID RF: 0 tretinoin 0.1 % cream 1 applic TP QHS RF: 0 sertraline 50 mg tablet 100 mg PO DAILY RF: 0 prochlorperazine maleate 5 mg tablet See Rx Instructions PO TID PRN (Reason: nausea and vomiting) Qty: 24 RF: 0 naproxen 250 mg Tablet 250 mg PO BID PRNRF: 0 No Action divalproex [Depakote] 250 mg tablet,delayed release (DR/EC) 250 mg PO TID Qty: 30 RF: 0 Discharge Instructions Instructions: Migraine Headache (ED) Additional Instructions: Please follow-up with your neurologist and primary care physician. Take your medication as prescribed. Return to the emergency department immediately for any worsening or new concerning symptoms. Referrals: Tim Kim MD [Primary Care Provider] - Erika Kiran MD [ [facility] STAFF PHYSICIAN] - Discharge Data Discharge Date/Time-TO BE ENTERED AT DEPARTURE: 10/26/20 17:36 Medical Decision Making <Fina Church DO - Last Filed: 10/29/20 15:06> 1500 -- 30-year-old female with a history of migraines presents with frontal headache for the past 8 days. States this feels consistent with her usual migraine. Vitals within normal limits and she appears nontoxic. No focal deficits. Patient has tolerated Toradol and naproxen in the past. She took 40 mg of prednisone this morning for her migraine. Will place an IV, bolus IV fluids, Toradol, Compazine, Benadryl, Tylenol, and Decadron IV and reassess. [id number] -- case endorsed to Dr. Roberto to reassess patient after migraine cocktail and final disposition. Medical Records Medical records reviewed: Yes I reviewed the patient's medical records. <Prasanna Roberto MD - Last Filed: 11/09/20 20:11> 1649??care signed out by Dr. Church with plan to reassess patient who has received medications to treat her migraine. Patient was reassessed: Headache completely resolved. Plan will be for discharge with outpatient follow-up with her neurologist. I did attempt to contact her neurologist but she was not available. Disposition decision was made weighing the risks and benefits of hospitalization versus outpatient treatment, the risk for further decompensation, and the patient's wishes. The patient was stable and requested discharge. Prior to discharge, my usual and customary return precautions were reviewed with the patient - this included follow-up instructions and reason to return to the emergency department if condition worsens, does not improve as expected, or other new concerns arise. HPI <Fina Church DO - Last Filed: 10/29/20 15:06> General Mode of arrival: ambulatory. Date/Time Provider Initiated Documentation: 10/26/20 14:47. Limitations to Documentation: no limitations. Information obtained by: patient. HPI Narrative: Patient is a 22-year-old female with a history of migraines presents with migraine type headache for the past 8 days. She states the headache is throbbing and aching located in her forehead without radiation. She states she took 2 doses of Compazine this week for her headache without relief and developed 2 bumps on her neck which she thought were possible hives so she stopped this. She denies any throat swelling or difficulty breathing after taking Compazine. She also saw Dr. Kiran in the office 2 days ago and had an occipital nerve block which she has not had before but denies any relief with this. She states she took Topamax and Imitrex last night without relief. She states she took her prednisone today without relief. She admits to photophobia and nausea but denies any fever, neck pain, chest pain, shortness of breath, abdominal pain, vomiting, unilateral weakness or numbness. Related Data Home Medications Medication Instructions Recorded Confirmed clindamycin phosphate 1 % topical 1 applic TP BID 01/23/20 10/26/20 gel lorazepam 0.5 mg tablet 0.5 mg PO ONCE PRN tab 01/23/20 10/26/20 tretinoin 0.1 % topical cream 1 applic TP QHS 01/23/20 10/26/20 naproxen 250 mg PO BID PRN 02/07/20 10/26/20 levonorgestrel 20 mcg/24 hours (6 1 device INTRAUTERINE ONCE #1 ea 04/17/20 10/26/20 yrs) 52 mg intrauterine device sertraline 50 mg tablet 100 mg PO DAILY tab 05/15/20 10/26/20 sumatriptan 20 mg/actuation nasal 20 mg INTRANASAL Q2H PRN #6 ea 06/26/20 10/26/20 spray lamotrigine 25 mg tablet 125 mg PO DAILY tab 09/24/20 10/26/20 methylphenidate HCl 18 mg 28 mg PO DAILY 09/24/20 10/26/20 tablet,extended release 24 hr topiramate 100 mg tablet 100 mg PO QHS #90 tab 09/24/20 10/26/20 prochlorperazine maleate 5 mg See Rx Instructions PO TID PRN #24 10/23/20 10/26/20 tablet tab divalproex 250 mg tablet,delayed 250 mg PO TID #30 tab 10/30/20 release Previous Rx's Medication Instructions Recorded levonorgestrel 20 mcg/24 hours (6 1 device INTRAUTERINE ONCE #1 ea 04/17/20 yrs) 52 mg intrauterine device sumatriptan 20 mg/actuation nasal 20 mg INTRANASAL Q2H PRN #6 ea 06/26/20 spray topiramate 100 mg tablet 100 mg PO QHS #90 tab 09/24/20 prochlorperazine maleate 5 mg See Rx Instructions PO TID PRN #24 10/23/20 tablet tab divalproex 250 mg tablet,delayed 250 mg PO TID #30 tab 10/30/20 release Allergies Allergy/AdvReac Type Severity Reaction Status Date / Time ibuprofen Allergy Severe THROAT Verified 10/26/20 14:46 SWELLS paroxetine [From Paxil] Allergy Severe Verified 10/26/20 14:46 codeine Allergy Intermediate HIVES Verified 10/26/20 14:46 penicillin G Allergy Intermediate RASH,HIVES Verified 10/26/20 14:46 methylphenidate Allergy Mild Verified 10/26/20 14:46 [From Concerta] amphetamine [From Adderall] Allergy Unknown Verified 10/26/20 14:46 dextroamphetamine Allergy Unknown Verified 10/26/20 14:46 [From Adderall] General Stated Complaint: Headache FRITZ: 3 Review of Systems <Fina Church DO - Last Filed: 10/29/20 15:06> All systems reviewed & are unremarkable except as noted in HPI and below Constitutional Constitutional: Reports as per HPI, Denies chills, Denies fever(s) and Reports headache(s) Eyes Eyes: Denies blurry vision ENT Ears, Nose, Mouth, and Throat: Denies dizziness, Reports headache(s), Denies sore throat and Denies throat swelling Cardiovascular Cardiovascular: Denies chest pain and Denies dyspnea Respiratory Respiratory: Denies cough and Denies dyspnea Gastrointestinal Gastrointestinal: Denies abdominal pain, Denies diarrhea and Denies vomiting Genitourinary Genitourinary: Denies hematuria and Denies dysuria Musculoskeletal Musculoskeletal: Denies back pain and Denies numbness Integumentary/Breasts Skin/Breast: Denies lesions and Denies rash Neurologic Neurologic: Denies dizziness, Reports headache(s), Denies localized weakness and Denies numbness Allergic/Immunologic Allergic/Immunologic: Denies throat swelling PFSH <Fina Church DO - Last Filed: 10/29/20 15:06> Medical History Abnormal weight gain Acute recurrent otitis media ADHD Anxiety Bilateral leg pain Drug abuse, IV History of depression Hx of varicella Idiopathic small fiber peripheral neuropathy Migraine headache with aura Opioid dependence Panic disorder Pelvic pain PTSD (post-traumatic stress disorder) Tobacco use Unresolved grief Surgical History No significant past surgical history Family History Mother Devic's syndrome Headache Social History Smoking/Tobacco Use Status: Current every day Tobacco Type: e-cigarettes Smoking risk assessment performed?: Yes Alcohol Intake: current Alcohol Intake frequency: a few times a month Drug use: Rarely Substance use type: marijuana Household members: children Number of Children: 1 current occupation: [employer] working Pets and animals: Yes (hermit crab) Current gender identity: female What is your relationship status?: never Panel score (0-1 are the most socially isolated patients): 0 What type of physical activity do you participate in: none Seatbelt use: sometimes Do you feel safe at home: Yes Do you feel safe in your relationship?: Yes Exam <Fina Church DO - Last Filed: 10/29/20 15:06> Const General: cooperative, healthy appearing and no acute distress HENMT Head: normal to inspection Face and sinus: normal facial exam Eyes General: appearance normal, both eyes and all related structures Pupils: PERRL EOM: EOM intact bilaterally Neck Neck: normal visual inspection and No submandibular swelling Lymphatic: no lymphadenopathy noted Chest Chest: normal inspection of the chest and no tenderness Resp Effort & Inspection: normal respiratory effort and able to speak in complete sentences Auscultation: clear to auscultation bilaterally Cardio Rate: regular rate Rhythm: regular rhythm GI Inspection: normal to inspection Palpation: soft, not firm, not rigid and nontender Auscultation: normal bowel sounds Skin General skin exam: no rashes or lesions noted Neuro General: patient alert, patient awake, patient oriented x3, gait normal, moves all extremities, no meningeal signs and no focal motor deficits Cranial Nerves: CN's II-XI intact bilaterally Cognition: normal cognition Speech: speech normal Motor: muscle tone normal throughout Sensory Exam: no sensory deficits noted Extrem General: normal to inspection, full ROM, capillary refill normal, no calf tenderness bilaterally and no edema Psych Appearance: grossly normal Mental Status: mental status grossly normal Speech and Movement: speech and movement normal Affect: normal affect Course <DO Chloe Shipman Last Filed: 10/29/20 15:06> Vital Signs Vital signs: Vital Signs Temperature 99.3 F 10/26/20 14:43 Pulse 105 H 10/26/20 14:43 Respiratory Rate 20 10/26/20 14:43 Blood Pressure 117/71 10/26/20 14:43 Pulse Oximetry 97 10/26/20 14:43 Temperature 99.3 F 10/26/20 14:43 Temperature Source Skin 10/26/20 14:43 Pulse 105 H 10/26/20 14:43 Respiratory Rate 20 10/26/20 14:43 Respiratory Effort Non-Labored 10/26/20 14:47 Blood Pressure 117/71 10/26/20 14:43 Blood Pressure Position Sitting 10/26/20 14:43 Pulse Oximetry 97 10/26/20 14:43 Oxygen Delivery Method Room Air 10/26/20 14:43 Oxygen Flow Rate 0 10/26/20 14:43 Sign Out <Fina Church DO - Last Filed: 10/29/20 15:06> Sign Out Data: Sign Out Comment: Reassess after migraine cocktail. If patient improves, plan for discharge to home. Last updated by Fina Church DO at 10/26/20 16:07
[2020-10-26] MEDS: Prochlorperazine 10 MG/2 ML VIAL IVP (15:28)
[2020-10-26] MEDS: Normal Saline 1,000 ML 1000 ML IV (15:28)
[2020-10-26] MEDS: Ketorolac 30 MG/ML VIAL IVP (15:29)
[2020-10-26] MEDS: diphenhydrAMINE 50 MG/ML VIAL 25 MG IVP (15:29)
[2020-10-26] MEDS: Dexamethasone 10 MG/ML VIAL IVP (15:29)
[2020-10-26] MEDS: ACETAMINOPHEN 1,000 MG/100 ML BTL 400 MG IVPB (15:29)
[2020-10-26 15:54] VITALS: BP 86/52; PULSE 84; RESP 18; TEMP 36.6; O2SAT 96
[2020-10-26 16:41] VITALS: BP 98/56; PULSE 76; RESP 16; TEMP 35.8; O2SAT 96
--- NOTE | 2020-10-26 16:42 | NUR.NOTE ---
pt states that her head ache is gone and that she would like to go home Nursing Note:
== END 2020-10-26 17:36 | disposition home or self-care (01) ==
PROVIDERS: Emergency Provider Student in an Organized Health Care Education/Training Program; PCP Internal Medicine
DX: G43.809 Other migraine, not intractable, without status migrainosus (principal)
CPT/HCPCS: 81025; 96361; 96365; 96375; 99284; J0131; J0780; J1100; J1200; J1885

== ENCOUNTER 2020-12-14 10:31 | Outpatient (REF) | payer MEDICAID, SELFPAY ==
--- NOTE | 2020-12-14 09:10 | PAPFT_PTH ---
PATIENT: Radha Schmidt LOC: [facility] U#:[id number] AGE/SX: 30/F ROOM: RE12/14/[address]: Pam Means MD : 1990 BED: DIS: 12/14/2020 SPEC #: [id number] RECD: 12/14/20 13:07 STATUS: HAILE SIDDIQI #: [id number] AAKASH: 12/14/20 09:[address]: Pam Means DEPT: [facility] Cytology RECD BY: Mona Bhandari ENTERED: 12/14/20 13:07 SP TYPE: PAPFT OTHR DR: Tim Kim Tissues: 1 - CX/ENDOCX FOR PAP SMEARS Procedures: PAP THIN PREP/UVM Screening Comments: [id number]
== END 2020-12-14 10:32 | disposition home or self-care (01) ==
LOC: LBN 10:31
PROVIDERS: PCP Internal Medicine; Visit Provider Obstetrics & Gynecology
DX: Z12.4 Encounter for screening for malignant neoplasm of cervix (principal)
CPT/HCPCS: 88142

== ENCOUNTER 2020-12-14 20:37 | Emergency (ER) | payer MEDICAID, SELFPAY ==
[2020-12-14 20:44] VITALS: BP 108/44; PULSE 95; RESP 18; TEMP 36.4; O2SAT 96
--- NOTE | 2020-12-14 20:44 | W.ED.GENAD ---
Discharge Plan Disposition Patient Disposition: HOME Condition: Stable Discharge Details Clinical Impression: Thumb pain Primary Care Provider: Tim Kim ED Provider: Ruth Page Home Meds and New Rx's Prescriptions: Continued methylphenidate HCl [Concerta] 18 mg tablet extended release 24hr 36 mg PO DAILY RF: 0 sumatriptan 20 mg/actuation spray,non-aerosol 20 mg intranasal Q2H PRN (Reason: migraine headache) Qty: 6 RF: 5 lamotrigine [Lamictal] 25 mg tablet 125 mg PO DAILY RF: 0 omeprazole 20 mg capsule,delayed release(DR/EC) 20 mg PO DAILY RF: 0 cholecalciferol (vitamin D3) 50 mcg (2,000 unit) capsule 50 mcg PO DAILY RF: 0 acetylcysteine [NAC] 600 mg capsule 600 mg PO DAILY RF: 0 Emgality Pen 120 mg/mL pen injector 240 mg subcut ONCE Qty: 2 RF: 0 lorazepam [Ativan] 0.5 mg tablet 0.5 mg PO ONCE PRNRF: 0 clindamycin phosphate 1 % gel 1 applic TP BID RF: 0 tretinoin 0.1 % cream 1 applic TP QHS RF: 0 prochlorperazine maleate 5 mg tablet See Rx Instructions PO TID PRN (Reason: nausea and vomiting) Qty: 24 RF: 0 sertraline 50 mg tablet 150 mg PO DAILY RF: 0 naproxen 250 mg Tablet 250 mg PO BID PRNRF: 0 Discharge Instructions Instructions: Finger Sprain (ED) Additional Instructions: Your exam and x-ray are reassuring here today. Please encourage rest, ice, elevation. Tylenol and/or naproxen as needed for discomfort. Please continue with splint mobilizing to help with discomfort. Please continue to monitor the finger for redness, warmth, swelling, rash. If you develop any of these or other new/worsening symptom please seek care urgently once again. Otherwise, please follow-up with your primary care provider next week for reevaluation. Referrals: Tim Kim MD [Primary Care Provider] - Discharge Data Discharge Date/Time-TO BE ENTERED AT DEPARTURE: 12/14/20 21:45 Medical Decision Making Patient is a 30-year-old [id number] female presenting today with chief complaint of left thumb pain. She reports the pain began yesterday. Describes it as tingling initially that was at the pad of the finger and has since spread becoming much more painful. States that it is like a numbness that I can feel. No break in the skin. No fevers or chills. Not take anything for her discomfort. Reports that she has chronic pain and has difficulty managing pain. Reports that she is allergic to all NSAIDs. Denies neck pain or pain proximal in the limb. On exam, patient appears nontoxic. Exam the left upper extremity is fairly unremarkable. Patient does have some subjective swelling which I am not able to appreciate on exam at this time. I see no break in the skin or rash. Brisk capillary refill. She is able to touch thumb and pinky. She is ligamentously intact although movement does cause discomfort. She is exquisitely tender with very gentle palpation circumferentially about the thumb. No pain proximal to the thumb with palpation. Considered occult fracture patient severity of pain. Will obtain x-ray for further evaluation. Do not see any evidence of neurovascular or dermatologic issue at this point. However, did consider other causes such as herpetic gris vs. other dermatologic cause. Patient is not at high risk for this, did screen for social and personal risk factors. X-ray reviewed by radiologist: FINDINGS: Bones/joints: No suspicious osseous lytic or blastic lesion. No acute fracture or dislocation. Joint spaces are preserved. Soft tissues: No focal abnormality. IMPRESSION: No acute findings. Discussed these findings with the patient. At this time, I see no evidence of emergent pathology. Will splint to help with discomfort. Advised she can use tyelnol and continue with her PRN naproxen. Return precautions discussed. We did discuss that symptoms may change or new ones arise and what to monitor for. She will otherwise f/u with her PCP next week for reevaluation. All of her questions and concerns were addressed, she is in agreement with this plan. [facility] General Mode of arrival: ambulatory. Date/Time Provider Initiated Documentation: 12/14/20 20:44. Limitations to Documentation: no limitations. Information obtained by: patient and RN notes reviewed. History of Present Illness 30 year old F presents to the emergency department with the chief complaint of left thumb pain, described as moderate, with intensity rated at 7. Quality is described as burning, and is localized to the left and upper extremity. Patient reports no radiation. Patient started experiencing this day(s) (1) and it has been constant. Immobilization improves symptom(s), Movement worsens symptoms . Patient notes no other symptoms.. Patient did receive the following treatments prior to arrival, none Related Data Home Medications Medication Instructions Recorded Confirmed clindamycin phosphate 1 % topical 1 applic TP BID 01/23/20 12/14/20 gel lorazepam 0.5 mg tablet 0.5 mg PO ONCE PRN tab 01/23/20 12/14/20 tretinoin 0.1 % topical cream 1 applic TP QHS 01/23/20 12/14/20 naproxen 250 mg PO BID PRN 02/07/20 12/14/20 sumatriptan 20 mg/actuation nasal 20 mg INTRANASAL Q2H PRN #6 ea 06/26/20 12/14/20 spray lamotrigine 25 mg tablet 125 mg PO DAILY tab 09/24/20 12/14/20 prochlorperazine maleate 5 mg See Rx Instructions PO TID PRN #24 10/23/20 12/14/20 tablet tab acetylcysteine 600 mg capsule 600 mg PO DAILY 11/20/20 11/20/20 cholecalciferol (vitamin D3) 50 50 mcg PO DAILY 11/20/20 12/14/20 mcg (2,000 unit) capsule galcanezumab-gnlm 120 mg/mL 240 mg SUBCUT ONCE #2 ml 11/20/20 12/14/20 subcutaneous pen injector methylphenidate HCl 18 mg 36 mg PO DAILY tab 11/20/20 12/14/20 tablet,extended release 24 hr omeprazole 20 mg capsule,delayed 20 mg PO DAILY 11/20/20 12/14/20 release sertraline 50 mg tablet 150 mg PO DAILY tab 11/20/20 12/14/20 Previous Rx's Medication Instructions Recorded sumatriptan 20 mg/actuation nasal 20 mg INTRANASAL Q2H PRN #6 ea 06/26/20 spray prochlorperazine maleate 5 mg See Rx Instructions PO TID PRN #24 10/23/20 tablet tab galcanezumab-gnlm 120 mg/mL 240 mg SUBCUT ONCE #2 ml 11/20/20 subcutaneous pen injector Allergies Allergy/AdvReac Type Severity Reaction Status Date / Time ibuprofen Allergy Severe THROAT Verified 12/14/20 20:48 SWELLS paroxetine [From Paxil] Allergy Severe Verified 12/14/20 20:48 codeine Allergy Intermediate HIVES Verified 12/14/20 20:48 penicillin G Allergy Intermediate RASH,HIVES Verified 12/14/20 20:48 methylphenidate Allergy Mild Verified 12/14/20 20:48 [From Concerta] amphetamine [From Adderall] Allergy Unknown Verified 12/14/20 20:48 dextroamphetamine Allergy Unknown Verified 12/14/20 20:48 [From Adderall] General FRITZ: 3 Review of Systems Constitutional Constitutional: Reports as per HPI, Denies chills, Denies fever(s), Denies headache(s) and Denies weakness ENT Ears, Nose, Mouth, and Throat: Denies headache(s) and Denies neck pain Cardiovascular Cardiovascular: Reports as per HPI Respiratory Respiratory: Reports as per HPI and Denies cough Musculoskeletal Musculoskeletal: Reports as per HPI, Denies neck pain, Reports numbness (patient reports, numb but can still feel everything), Denies radiating pain into limb and Reports tingling Integumentary/Breasts Skin/Breast: Reports as per HPI, Denies rash and Denies wounds Neurologic Neurologic: Reports as per HPI, Denies headache(s), Reports numbness (patient reports, numb but can still feel everything), Reports tingling, Denies paresthesias and Denies weakness PFSH Medical History Abnormal weight gain Acute recurrent otitis media ADHD Anxiety Bilateral leg pain Contraceptive education Drug abuse, IV Encounter for IUD removal History of depression Hx of varicella Idiopathic small fiber peripheral neuropathy Migraine headache with aura Opioid dependence Panic disorder Pap smear for cervical cancer screening Pelvic pain PTSD (post-traumatic stress disorder) Tobacco use Unresolved grief Surgical History No significant past surgical history Family History Mother Devic's syndrome Headache Social History Smoking/Tobacco Use Status: Current every day Tobacco Type: e-cigarettes Smoking risk assessment performed?: Yes Alcohol Intake: current Alcohol Intake frequency: a few times a month Drug use: Rarely Substance use type: marijuana Household members: children Number of Children: 1 current occupation: [employer] working Pets and animals: Yes (hermit crab) Current gender identity: female What is your relationship status?: never Panel score (0-1 are the most socially isolated patients): 0 What type of physical activity do you participate in: none Seatbelt use: sometimes Do you feel safe at home: Yes Do you feel safe in your relationship?: Yes Exam Const General: cooperative, healthy appearing, comfortable, no acute distress, well developed and well groomed Nutritional Appearance: average body habitus and well nourished Orientation: alert and awake Resp Effort & Inspection: normal respiratory effort, able to speak in complete sentences and no respiratory distress Cardio Rate: regular rate Rhythm: regular rhythm Skin General skin exam: no rashes or lesions noted Lesions: no lesions Rashes: no rashes Trauma: no lacerations or abrasions Neuro General: patient alert and patient awake Cognition: normal cognition Speech: speech normal Gait: normal gait Motor: muscle tone normal throughout Sensory Exam: no sensory deficits noted Extrem Hand/finger images: 1. Patient has circumferential discomfort about the entire thumb. Pain to gentle touch of the skin. No break in the skin, rash. Patient endorses some subjective swelling but none is noted objectively compared to the contralateral side. Patient does have good range of motion although this does cause increased discomfort. She is able to move all ligaments although this movement does cause discomfort. She has brisk capillary refill. 2+ distal pulses. Has intact axillary nerve testing. Psych Appearance: grossly normal and well kempt Mental Status: mental status grossly normal Speech and Movement: speech and movement normal
--- NOTE | 2020-12-14 21:05 | DI.RAD_ITS ---
Exam(s) XR THUMB LT EXAM: XR THUMB LT EXAM DATE/TIME: CLINICAL HISTORY: pain. TECHNIQUE: 2D digital imaging was performed. COMPARISON: None. FINDINGS: BONES: No acute fracture is present. No bony destructive lesion is seen. JOINTS: No dislocation present. SOFT TISSUE: Normal. IMPRESSION: No evidence of acute fracture, dislocation, or subluxation. DATA REPOSITORY: RADIATION DOSE DELIVERED:
--- NOTE | 2020-12-14 21:46 | DI.VRAD_ITS ---
PROCEDURE INFORMATION: Exam: XR Left Finger(s) Exam date and time: 12/14/2020 8:52 PM Age: 30 years old Clinical indication: Finger(s); Patient HX: Left thumb pain. TECHNIQUE: Imaging protocol: XR Left fingers. Views: Minimum 2 views. COMPARISON: No relevant prior studies available. FINDINGS: Bones/joints: No suspicious osseous lytic or blastic lesion. No acute fracture or dislocation. Joint spaces are preserved. Soft tissues: No focal abnormality. IMPRESSION: No acute findings. Dictated and Authenticated by: Checo Parker MD. Ordering:WHITLEY Miranda MD
== END 2020-12-14 21:45 | disposition home or self-care (01) ==
PROVIDERS: Emergency Provider Physician Assistant; PCP Internal Medicine
DX: M79.645 Pain in left finger(s) (principal)
CPT/HCPCS: 29130; 99283; 73140

== ENCOUNTER 2021-01-15 04:02 | Outpatient (CLI) | payer MEDICAID, SELFPAY ==
[2021-01-15 09:40] LABS: Kit/Specimen SENT
== END 2021-01-15 04:03 | disposition home or self-care (01) ==
LOC: LBN 04:03 → LBO 09:23
PROVIDERS: PCP Internal Medicine
DX: Z00.5 Encounter for examination of potential donor of organ and tissue (principal)
CPT/HCPCS: 36415

== ENCOUNTER 2021-02-19 15:52 | Outpatient (CLI) | payer MEDICAID, SELFPAY ==
--- NOTE | 2021-02-19 12:15 | DI.US_ITS ---
Exam(s) US OB 1ST TRIMESTER EXAM: US OB 1ST TRIMESTER CLINICAL HISTORY: left pelvic pain in early R10.2, O26.899 TECHNIQUE: Ultrasound performed using standard protocol. COMPARISON: US US PELVIS from 08/21/2020 FINDINGS: Ob ultrasound was performed utilizing 1st trimester protocol. There is no visible intrauterine gesta tional sac. Uterus measures 8.7 x 4.1 x 4.9 cm. The endometrial stripe measures about 16 millimeter s and appears homogeneous. The ovaries are unremarkable in appearance, right ovary measures 26 x 25 x 19 millimeters and left ovary measures 33 x 34 x 28 millimeters. There is unremarkable Doppler jourdan luation of the ovaries. There is minimal free fluid in the cul-de-sac. IMPRESSION: Unremarkable pelvic ultrasound examination. No evidence of intrauterine gestation. Follow-up ultras ound and/ or serial beta HCG levels suggested. DATA REPOSITORY:
== END 2021-02-19 16:12 ==
PROVIDERS: PCP Internal Medicine; Visit Provider Advanced Practice Midwife
DX: O26.891 Other specified pregnancy related conditions, first trimester; R10.2 Pelvic and perineal pain; Z3A.00 Weeks of gestation of pregnancy not specified
CPT/HCPCS: 76801

== ENCOUNTER 2021-02-21 02:58 | Outpatient (CLI) | payer MEDICAID, SELFPAY ==
[2021-02-21 12:13] LABS: HCG Quant, Pregnancy 2102 mIU/mL (1-3)
== END 2021-02-21 02:59 | disposition home or self-care (01) ==
LOC: LBO 02:58
PROVIDERS: PCP Internal Medicine; Visit Provider Advanced Practice Midwife
DX: R10.2 Pelvic and perineal pain (principal); O26.891 Other specified pregnancy related conditions, first trimester
CPT/HCPCS: 36415; 84702

== ENCOUNTER 2021-02-26 15:16 | Outpatient (CLI) | payer MEDICAID, SELFPAY ==
[2021-02-26 16:45] LABS: HCG Quant, Pregnancy 9021 mIU/mL (1-3)
== END 2021-02-26 15:17 | disposition home or self-care (01) ==
LOC: LBO 15:17
PROVIDERS: PCP Internal Medicine; Visit Provider Advanced Practice Midwife
DX: R10.2 Pelvic and perineal pain (principal); O26.891 Other specified pregnancy related conditions, first trimester
CPT/HCPCS: 36415; 84702

== ENCOUNTER 2021-04-04 18:08 | Outpatient (REF) | payer MEDICAID, SELFPAY ==
[2021-04-04 19:59] LABS: *AMPHETAMINES SCREEN URINE Negative (Negative); *BARBITURATES SCREEN URINE Positive (Negative); *BENZODIAZEPINES SCREEN URINE Negative (Negative); Cannabinoids THC Negative (Negative); Cocaine Screen,Urine Negative (Negative); METHADONE URINE SCREEN Negative (Negative); OPIATES URINE SCREEN Negative (Negative); Tricyclic Antidepressants Negative (Negative)
[2021-04-08 16:12] LABS: Chlamydia Result Negative (Negative); GC Result Negative (Negative)
[2021-04-16 14:48] LABS: Buprenorphine Negative ng/mL (Cutoff: 5.0); Norbuprenorphine Negative ng/mL (Cutoff: 2.5)
== END 2021-04-04 18:09 | disposition home or self-care (01) ==
LOC: LBN 18:08
PROVIDERS: PCP Internal Medicine; Visit Provider Advanced Practice Midwife
DX: Z34.91 Encounter for supervision of normal pregnancy, unspecified, first trimester; N89.8 Other specified noninflammatory disorders of vagina; Z11.3 Encounter for screening for infections with a predominantly sexual mode of transmission
CPT/HCPCS: 80307; 87491; 87591; 87086; 87480; 87510; 87660

== ENCOUNTER 2021-04-10 02:41 | Outpatient (CLI) | payer MEDICAID, SELFPAY ==
[2021-04-10 09:13] LABS: Abs Immature Grans 0.03 10^3/uL (0.0-0.06); Absolute Basophil Count 0.01 10^3/uL (0.0-0.2); Absolute Eosinophil Count 0.04 10^3/uL (0.0-0.7); Absolute Lymphocyte Count 1.45 10^3/uL (1.2-3.4); Absolute Monocyte Count 0.43 10^3/uL (0.1-0.8); Absolute Neutrophil Count 5.23 10^3/uL (1.2-6.7); Basophils % 0.1; Eosinophils % 0.6; HCT 36.2 % (36.0-46.0); HGB 12.7 g/dL (11.2-15.7); Immature Grans % 0.4; Lymphocytes % 20.2; MCH 32.2 pg (27.0-33.0); MCHC 35.1 % (32.0-36.0); MCV 91.9 fL (80-95); MPV 10.1 fL (8.0-11.0); Neutrophils % 72.7; Nucleated RBC 0 %; Platelet Count 166 10^3/uL (130-400); RBC 3.94 10^6/uL (3.93-5.22); RDW 11.8 % (11.7-14.6); RDW-SD 39.8 fL; WBC 7.19 10^3/uL (4.4-10.8)
[2021-04-10 10:33] LABS: TSH (W/Ref FT4) 1.73 uIU/mL (0.36-3.74)
[2021-04-11 09:31] LABS: Hepatitis B Surface Ag Negative (Negative)
[2021-04-11 10:10] LABS: Varicella IgG Antibody Positive (See Note)
[2021-04-11 10:11] LABS: Hepatitis C Ab w Rflx HCV PCR Negative (Negative)
[2021-04-11 10:15] LABS: Rubella IgG Ab (UVM) Negative (See Note)
[2021-04-11 10:24] LABS: HIV-1/2 Ag & Ab Screen Negative (Negative)
[2021-04-11 15:59] LABS: Syphilis Total Ab w/Reflex Nonreactive (Nonreactive)
== END 2021-04-10 02:42 | disposition home or self-care (01) ==
LOC: LBO 02:41
PROVIDERS: PCP Internal Medicine; Visit Provider Advanced Practice Midwife
DX: Z34.91 Encounter for supervision of normal pregnancy, unspecified, first trimester; F41.9 Anxiety disorder, unspecified; Z83.49 Family history of other endocrine, nutritional and metabolic diseases
CPT/HCPCS: 36415; 86787; 86803; 86850; 86900; 86901; 87340; 87389; 84443; 85025; 86762; 86780

== ENCOUNTER 2021-05-27 01:10 | Outpatient (CLI) | payer MEDICAID, SELFPAY ==
--- NOTE | 2021-05-27 06:45 | DI.US_ITS ---
Exam(s) US OB 2-3 TRIMESTER W MOD EXAM: US OB 2-3 TRIMESTER W MOD CLINICAL HISTORY: anatomy and placenta,z34.90. TECHNIQUE: Transabdominal obstetrical ultrasound performed. COMPARISON: No exams were available for comparison FINDINGS: Transabdominal obstetrical ultrasound performed. FINDINGS: Number of fetuses: One. position: Vertex. Placental grade: 0 Placental location: Anterior. No evidence of previa. BIOMETRIC DATA: BPD: 41cm HC: 157cm AC: 145cm FL: 28cm Cisterna Magna: 2.4 millimeters Cerebellum: 1.78 cm EFW: 276 grms 97% Composite Age: 18+ 6 weeks EDC by US: 22 October 2021 Heart Rate: 144BPM Amniotic fluid: Visually within normal limits. ANATOMICAL SURVEY: Four-chambered heart: Unremarkable. LVOT: Unremarkable. RVOT: Unremarkable. Left-sided stomach: Unremarkable. urinary bladder: Unremarkable. Bilateral kidneys: Unremarkable. Three-vessel cord: Unremarkable. Cord insertion: Unremarkable. Umbilical artery velocity: Unremarkable. Posterior fossa:Unremarkable. ventricles: Unremarkable. nose: Not well seen. hands positioned anterior to the face. lips: Not well seen. palate: Unremarkable. spine: Unremarkable. Two arms and two legs: Unremarkable. IMPRESSION: 1. Single live intrauterine gestation as above. 2. Normal anatomic survey. nose and lips not well seen. The patient is scheduled to ret urn in 1 week for repeat imaging. DATA REPOSITORY:
== END 2021-05-27 01:30 ==
PROVIDERS: PCP Internal Medicine; Visit Provider Advanced Practice Midwife
DX: Z34.92 Encounter for supervision of normal pregnancy, unspecified, second trimester (principal)
CPT/HCPCS: 76805

== ENCOUNTER 2021-06-07 12:03 | Outpatient (CLI) | payer MEDICAID, SELFPAY ==
--- NOTE | 2021-06-07 | DI.US_ITS ---
Exam(s) US OB F/U FACIAL/LVOT/RVOT EXAM: US OB F/U FACIAL/LVOT/RVOT CLINICAL HISTORY: F/U SURVEY FOR NOSE AND LIPS. TECHNIQUE: Limited transabdominal obstetrical ultrasound performed. COMPARISON: US US OB 2-3 TRIMESTER W MOD from 05/27/2021 FINDINGS: Transabdominal obstetrical ultrasound performed. FINDINGS: Number of fetuses: One. Placental location: The placenta was not evaluated on this examination. There is an anterior placent a noted. Face and lips: Unremarkable. IMPRESSION: 1. Single live intrauterine gestation as above. 2. Review of both 05/27/2021 and the 06/07/2021 examinations show unremarkable nose and lips. DATA REPOSITORY:
== END 2021-06-07 12:23 ==
PROVIDERS: PCP Internal Medicine; Visit Provider Advanced Practice Midwife
DX: Z34.82 Encounter for supervision of other normal pregnancy, second trimester (principal)
CPT/HCPCS: 76815

== ENCOUNTER 2021-07-31 13:02 | Outpatient (CLI) | payer MEDICAID, SELFPAY ==
[2021-07-31 13:14] VITALS: BP 124/68; PULSE 88; TEMP 36.6
--- NOTE | 2021-07-31 13:50 | W.OBNST ---
Date of service: 07/31/21 Time of Service: 13:40 NST Evaluation Reason for NST Reasons for Nonstress Test: OTHER, SEE COMMENT Reason for NST Other: Pelvic pressure Gestational Age Gestational Age in Weeks and Days: 27 Weeks and 2Days Test and Monitor Explained Test/Monitor Explained: Test Explained, Monitor Explained and Patient Verbalized Understanding Vital Signs Blood Pressure: 124/68 Pulse: 88 Temperature: 97.9 F NST Information Date on Monitor: 07/31/21 Time on Monitor: 13:12 Date off Monitor: 07/31/21 Time off Monitor: 13:35 Total Time on Monitor: 23 NST Interventions: None NST Evaluation Patient States Movement: Present FHR Baseline: 140 Variability: Moderate 6-25 bpm NST Results: Reactive Note NST Note Note: Patient presented with concern about pelvic pressure and occasional cramping. Denies LOF or vaginal bleeding. Has not had pain since being on monitor. Baby is very active and unable to maintain tracing but FHR is audible in normal ranges of 140 and there is palpable movement. Abdomen is palpated for over 15 minutes without any evidence of contraction. Patient is reassured by baby's heart rate and is comfortable going home. Has normal gait when walking and reports no pain. Will keep next office appointment as scheduled. We reviewed PTL warning signs and when to call for further evaluation. Denies questions and is discharged to home in satisfactory condition. EBONI NST Reviewed and Verified by: Leilani Hampton
[2021-07-31 13:53] VITALS: BP 124/68; PULSE 88; TEMP 36.6
== END 2021-07-31 13:40 | disposition home or self-care (01) ==
LOC: BCD 13:03 → OBS 13:07
PROVIDERS: PCP Internal Medicine; Visit Provider Advanced Practice Midwife
DX: O26.892 Other specified pregnancy related conditions, second trimester (principal); Z3A.27 27 weeks gestation of pregnancy; R10.2 Pelvic and perineal pain
CPT/HCPCS: 59025

== ENCOUNTER 2021-08-05 01:36 | Outpatient (CLI) | payer MEDICAID, SELFPAY ==
[2021-08-05 10:04] LABS: HCT 32.6 % (36.0-46.0); MCH 30.9 pg (27.0-33.0); MCHC 33.7 % (32.0-36.0); MCV 91.6 fL (80-95); MPV 10.1 fL (8.0-11.0); Platelet Count 183 10^3/uL (130-400); RBC 3.56 10^6/uL (3.93-5.22); RDW 11.9 % (11.7-14.6); RDW-SD 40.2 fL; WBC 11.42 10^3/uL (4.4-10.8)
[2021-08-05 10:10] LABS: Glucose,1 Hr (Glucola) 125 mg/dL (80-140)
== END 2021-08-05 01:37 | disposition home or self-care (01) ==
LOC: LBO 01:36
PROVIDERS: Advanced Practice Midwife; PCP Internal Medicine; Visit Provider Advanced Practice Midwife
DX: Z34.92 Encounter for supervision of normal pregnancy, unspecified, second trimester (principal)
CPT/HCPCS: 36415; 82950; 85027; 86850; 90384

== ENCOUNTER 2021-09-03 00:48 | Outpatient (CLI) | payer MEDICAID, SELFPAY ==
--- NOTE | 2021-09-03 06:45 | DI.US_ITS ---
Exam(s) US OB GIOVANNI WEIGHT EXAM: US OB GIOVANNI WEIGHT CLINICAL HISTORY: history of SGA,,z87.59,z34.90. TECHNIQUE: Transabdominal obstetrical ultrasound performed. COMPARISON: US US OB F/U FACIAL/LVOT/RVOT from 06/07/2021 FINDINGS: Transabdominal obstetrical ultrasound performed. FINDINGS: Number of fetuses: One. position: Cephalic. Placental location: Grade 1 anterior placenta. No evidence of previa. BIOMETRIC DATA: BPD: 86 mm = 35 weeks HC: 310 mm = 34 weeks 4 days AC: 309 mm = 34 weeks 6 days FL: 67 mm = 34 weeks 4 days EFW: 2506 grms 98% Composite Age: 34 weeks 5 days EDC: 10/10/2021 Heart Rate: 145BPM Amniotic fluid index: 22.3 cm. Visually, amount of fluid is within normal limits. IMPRESSION: 1. Single live intrauterine gestation as above. 2. Estimated weight is 2506gms. 3. Amniotic fluid index is 22.3 cm. Visually within normal limits. DATA REPOSITORY:
== END 2021-09-03 01:08 ==
PROVIDERS: PCP Internal Medicine; Visit Provider Advanced Practice Midwife
DX: Z34.93 Encounter for supervision of normal pregnancy, unspecified, third trimester (principal); Z87.59 Personal history of other complications of pregnancy, childbirth and the puerperium
CPT/HCPCS: 76816

== ENCOUNTER 2021-09-06 06:30 | Outpatient (CLI) | payer MEDICAID, SELFPAY ==
[2021-09-06 08:02] VITALS: BP 115/60; PULSE 80; TEMP 36.7
--- NOTE | 2021-09-06 11:51 | W.OBNST ---
Date of service: 09/06/21 Time of Service: 11:51 NST Evaluation Reason for NST Reasons for Nonstress Test: POLYHYDRAMNIOS Gestational Age Gestational Age in Weeks and Days: 32 Weeks and 4Days Test and Monitor Explained Test/Monitor Explained: Test Explained and Monitor Explained Vital Signs Blood Pressure: 115/60 Pulse: 80 Temperature: 98.1 F Urine Results Urine Protein: Negative Urine Ketones: Negative Urine Glucose: Negative Urine Blood: Negative NST Information Date on Monitor: 09/06/21 Time on Monitor: 08:00 Date off Monitor: 09/06/21 Time off Monitor: 08:34 Total Time on Monitor: 34 NST Interventions: PO Hydration NST Evaluation Patient States Movement: Present FHR Baseline: 130 Variability: Moderate 6-25 bpm Accelerations: 15x15 Decelerations: None NST Results: Reactive Note NST Note Note: return in 1 week for NST GIOVANNI was 22 at last ultrasound with EFW in 98th percentile. Next ultrasound at 36 wks is scheduled. Pt agreeable to repeat 1 hr glucola next week NST Reviewed and Verified by: Sally Morrissey
[2021-09-06 11:52] VITALS: BP 115/60; PULSE 80; TEMP 36.7
== END 2021-09-06 08:40 | disposition home or self-care (01) ==
LOC: BCD 06:31 → OBS 07:57
PROVIDERS: PCP Internal Medicine; Visit Provider Advanced Practice Midwife
DX: O40.3XX0 Polyhydramnios, third trimester, not applicable or unspecified (principal); Z3A.32 32 weeks gestation of pregnancy
CPT/HCPCS: 59025

== ENCOUNTER 2021-09-12 02:26 | Outpatient (CLI) | payer MEDICAID, SELFPAY ==
[2021-09-12 10:45] LABS: Glucose,1 Hr (Glucola) 139 mg/dL (80-140)
== END 2021-09-12 02:27 | disposition home or self-care (01) ==
LOC: LBO 02:26
PROVIDERS: PCP Internal Medicine; Visit Provider Advanced Practice Midwife
DX: O36.63X0 Maternal care for excessive fetal growth, third trimester, not applicable or unspecified (principal)
CPT/HCPCS: 36415; 82950

== ENCOUNTER 2021-09-13 06:24 | Outpatient (CLI) | payer MEDICAID, SELFPAY ==
[2021-09-13 07:59] VITALS: BP 111/67; PULSE 83; TEMP 36.8
[2021-09-13 08:23] VITALS: BP 111/67; PULSE 83
--- NOTE | 2021-09-13 10:39 | W.OBNST ---
Date of service: 09/13/21 Time of Service: 08:30 NST Evaluation Reason for NST Reasons for Nonstress Test: POLYHYDRAMNIOS Gestational Age Gestational Age in Weeks and Days: 33 Weeks and 4Days Test and Monitor Explained Test/Monitor Explained: Test Explained, Monitor Explained and Patient Verbalized Understanding Vital Signs Blood Pressure: 111/67 Pulse: 83 Temperature: 98.2 F NST Information Date on Monitor: 09/13/21 Time on Monitor: 07:55 Date off Monitor: 09/13/21 Time off Monitor: 09:25 Total Time on Monitor: 90 NST Interventions: PO Hydration NST Evaluation Patient States Movement: Present FHR Baseline: 135 Variability: Moderate 6-25 bpm Accelerations: 10x10 Decelerations: Variable NST Results: Questionable Note NST Note Note: NST is equivocal. No concerning features and there are audible accelerations but tracing is difficult to maintain. Dr. Alonso agreed to do BPP and reassuring BPP was obtained in less than 5 minutes per MD patient may be discharged to home to keep next appointment in 1 week or return PRN. EBONI NST Reviewed and Verified by: Leilani Hampton
[2021-09-13 10:41] VITALS: BP 111/67; PULSE 83; TEMP 36.8
== END 2021-09-13 09:50 | disposition home or self-care (01) ==
LOC: BCD 06:26 → OBS 07:57
PROVIDERS: PCP Internal Medicine; Visit Provider Advanced Practice Midwife
DX: O40.3XX0 Polyhydramnios, third trimester, not applicable or unspecified (principal); Z3A.33 33 weeks gestation of pregnancy
CPT/HCPCS: 59025

== ENCOUNTER 2021-09-20 01:33 | Outpatient (CLI) | payer MEDICAID, SELFPAY ==
--- NOTE | 2021-09-16 12:30 | W.DIABETESNO ---
Date of service: 09/16/21 Time of Service: 12:30 Diabetes Note Reason for Visit: elevated glucose NOTE: Spoke to Radha on phone. Overll, her diet is well balanced. Requested blood sugar logs. Will follow up in person on 09/20/21 at her next NST. Time Spent in Nutritional Counseling and Treatment: 5 min
[2021-09-20 09:41] LABS: Glucose 1 Hour 155 mg/dL
[2021-09-20 11:35] LABS: Glucose 3 Hour 106 mg/dL
== END 2021-09-20 01:34 | disposition home or self-care (01) ==
LOC: LBO 01:33
PROVIDERS: PCP Internal Medicine; Visit Provider Advanced Practice Midwife
DX: R73.09 Other abnormal glucose (principal); Z34.93 Encounter for supervision of normal pregnancy, unspecified, third trimester
CPT/HCPCS: 36415; 82951

== ENCOUNTER 2021-09-20 08:26 | Outpatient (CLI) | payer MEDICAID, SELFPAY ==
[2021-09-20] VITALS (10 sets, daily range): BP systolic 109; BP diastolic 61; PULSE 66–98; TEMP 36.6; O2SAT 97–98
--- NOTE | 2021-09-20 09:52 | W.OBNST ---
Date of service: 09/20/21 Time of Service: 09:52 NST Evaluation Reason for NST Reasons for Nonstress Test: POLYHYDRAMNIOS Gestational Age Gestational Age in Weeks and Days: 34 Weeks and 4Days Test and Monitor Explained Test/Monitor Explained: Test Explained and Monitor Explained Vital Signs Blood Pressure: 109/61 Pulse: 74 Temperature: 97.9 F Urine Results Urine Protein: Positive Urine Ketones: Negative Urine Glucose: Negative Urine Blood: Negative NST Information Date on Monitor: 09/20/21 Time on Monitor: 08:30 Date off Monitor: 09/20/21 Time off Monitor: 09:09 Total Time on Monitor: 39 NST Interventions: None NST Evaluation Patient States Movement: Present FHR Baseline: 125 Variability: Moderate 6-25 bpm Accelerations: 15x15 Decelerations: None NST Results: Reactive Note NST Note Note: 3-hr GTT today. Reactive NST, return to center for NST in on eweek. for growth and GIOVANNI in 1.5 weeks. NST Reviewed and Verified by: Leilani Putnam
--- NOTE | 2021-09-20 12:35 | W.NUTRFU ---
Date of service: 09/20/21 Time of Service: 12:35 Nutrition Note NOTE: Met with Radha while having NST and 3 hour glucola. Dx with LGA fetus at 35 weeks. Has not been checking blood sugars at home. Diet recall indicates well balanced meals, weight gain wnl. Passed 3 hour glucola. Provided diet plan for optimal glycemic management in . Will continue to support. Time Spent in Nutritional Counseling and Treatment: 10
== END 2021-09-20 09:25 | disposition home or self-care (01) ==
LOC: BCD 08:27 → OBS 08:29
PROVIDERS: PCP Internal Medicine; Visit Provider Advanced Practice Midwife
DX: O40.3XX0 Polyhydramnios, third trimester, not applicable or unspecified (principal); Z3A.34 34 weeks gestation of pregnancy
CPT/HCPCS: 59025

== ENCOUNTER 2021-09-27 07:34 | Outpatient (CLI) | payer MEDICAID, SELFPAY ==
[2021-09-27 08:07] VITALS: BP 112/69; PULSE 77; TEMP 36.8
[2021-09-27 08:38] VITALS: BP 112/69; PULSE 77
[2021-09-27 14:14] VITALS: BP 112/69; PULSE 77; TEMP 36.8
--- NOTE | 2021-09-27 14:14 | W.OBNST ---
Date of service: 09/27/21 Time of Service: 14:14 NST Evaluation Reason for NST Reasons for Nonstress Test: POLYHYDRAMNIOS Gestational Age Gestational Age in Weeks and Days: 35 Weeks and 4Days Test and Monitor Explained Test/Monitor Explained: Test Explained and Monitor Explained Vital Signs Blood Pressure: 112/69 Pulse: 77 Temperature: 98.2 F Urine Results Urine Protein: Negative Urine Ketones: Negative Urine Glucose: Negative Urine Blood: Negative NST Information Date on Monitor: 09/27/21 Time on Monitor: 08:11 Date off Monitor: 09/27/21 Time off Monitor: 08:40 Total Time on Monitor: 29 NST Interventions: PO Hydration NST Evaluation Patient States Movement: Present FHR Baseline: 130 Variability: Absent Accelerations: 15x15 Decelerations: None NST Results: Reactive Note NST Note NST Reviewed and Verified by: Sally Morrissey
== END 2021-09-27 08:50 | disposition home or self-care (01) ==
LOC: BCD 07:40 → OBS 08:05
PROVIDERS: PCP Internal Medicine; Visit Provider Advanced Practice Midwife
DX: O40.3XX0 Polyhydramnios, third trimester, not applicable or unspecified (principal); Z3A.35 35 weeks gestation of pregnancy
CPT/HCPCS: 59025

== ENCOUNTER 2021-09-30 16:32 | Outpatient (REF) | payer MEDICAID, SELFPAY ==
[2021-09-30 19:13] LABS: *AMPHETAMINES SCREEN URINE Negative (Negative); *BARBITURATES SCREEN URINE Negative (Negative); *BENZODIAZEPINES SCREEN URINE Negative (Negative); Cannabinoids THC Negative (Negative); Cocaine Screen,Urine Negative (Negative); METHADONE URINE SCREEN Negative (Negative); OPIATES URINE SCREEN Negative (Negative); Tricyclic Antidepressants Positive (Negative)
[2021-10-06 22:28] LABS: Buprenorphine Negative ng/mL (Cutoff: 5.0)
== END 2021-09-30 16:33 | disposition home or self-care (01) ==
LOC: LBN 16:32
PROVIDERS: PCP Internal Medicine; Visit Provider Advanced Practice Midwife
DX: Z34.93 Encounter for supervision of normal pregnancy, unspecified, third trimester (principal); Z36.85 Encounter for antenatal screening for Streptococcus B; Z3A.38 38 weeks gestation of pregnancy
CPT/HCPCS: 80307; 87081

== ENCOUNTER → 2021-09-30 18:50 | Outpatient (CLI) | payer MEDICAID, SELFPAY ==
--- NOTE | 2021-09-30 14:45 | DI.US_ITS ---
Exam(s) US OB GIOVANNI WEIGHT EXAM: US OB GIOVANNI WEIGHT CLINICAL HISTORY: polyhydramnios at 32 weeks, O40.3XX0. TECHNIQUE: Transabdominal obstetrical ultrasound performed. COMPARISON: US US OB 2-3 TRIMESTER W MOD from 05/27/2021 US US OB F/U FACIAL/LVOT/RVOT from 06/07/2021 US US OB GIOVANNI WEIGHT from 09/03/2021 FINDINGS:: Number of fetuses: One. position: Vertex. Placental location: Anterior. No evidence of previa. BIOMETRIC DATA: BPD: 94 mm = 38+ 0 weeks HC: 336mm = 38+ 4 weeks AC: 342mm = 38+ 1 weeks FL: 73 mm = 37+ 4 weeks EFW: 3378 Gms = 94% Composite Age: 38 weeks 1 day, EDC by ultrasound: 13 October 2021 Heart Rate: 157BPM Amniotic fluid index: 14.9 cm. This has decreased when compared with the previous exam where it kellie ured 22.3 cm. IMPRESSION: size and weight large for dates. Amniotic fluid index within normal limits. DATA REPOSITORY:
== END ==
PROVIDERS: PCP Internal Medicine; Visit Provider Advanced Practice Midwife
DX: O36.63X0 Maternal care for excessive fetal growth, third trimester, not applicable or unspecified; O40.3XX0 Polyhydramnios, third trimester, not applicable or unspecified; Z3A.38 38 weeks gestation of pregnancy
CPT/HCPCS: 76816

== ENCOUNTER 2021-10-07 14:06 | Outpatient (CLI) | payer MEDICAID, SELFPAY ==
[2021-10-07 14:12] VITALS: BP 116/69; PULSE 73
[2021-10-07 14:13] VITALS: BP 116/69; PULSE 73
[2021-10-07 14:22] VITALS: BP 114/68; PULSE 85
--- NOTE | 2021-10-07 14:52 | W.OBNST ---
Date of service: 10/07/21 Time of Service: 14:20 NST Evaluation Reason for NST Reasons for Nonstress Test: OTHER, SEE COMMENT Reason for NST Other: Proteinuria in office, edema in office. Gestational Age Gestational Age in Weeks and Days: 37 Weeks and 0Days Test and Monitor Explained Test/Monitor Explained: Test Explained, Monitor Explained and Patient Verbalized Understanding Vital Signs Blood Pressure: 116/69 Pulse: 73 Urine Results Urine Protein: Positive Urine Ketones: Positive Urine Glucose: Negative Urine Blood: Negative NST Information Date on Monitor: 10/07/21 Time on Monitor: 14:00 Date off Monitor: 10/07/21 Time off Monitor: 14:25 Total Time on Monitor: 25 NST Interventions: PO Hydration Contraction Frequency: none NST Evaluation Patient States Movement: Present FHR Baseline: 135 Variability: Moderate 6-25 bpm Accelerations: 15x15 Decelerations: None NST Results: Reactive Note NST Note Note: Radha was sent for NST due to some elevation in BP for her although not 140/90 or greater, and 1+ protein on urine dip in office but also specific gravity of 1.030 today. She denies symptoms of pre-eclampsia. Is hoping to not have to do further blood testing if not needed. We agreed that BP at NST very good and NST is reactive and reassuring. She will have urine dip for protein at next visit and if still present she would then consent to 24 hour urine collection. We discussed importance of proper hydration as well. She will RTO 10/14/21. NST Reviewed and Verified by: Leilani Hampton
[2021-10-07 14:55] VITALS: BP 116/69; PULSE 73
== END 2021-10-07 14:30 | disposition home or self-care (01) ==
LOC: BCD 14:08 → OBS 14:10
PROVIDERS: PCP Internal Medicine; Visit Provider Advanced Practice Midwife
DX: O12.13 Gestational proteinuria, third trimester (principal); Z3A.37 37 weeks gestation of pregnancy
CPT/HCPCS: 59025

== ENCOUNTER 2021-10-20 08:25 | Inpatient (IN) | payer MEDICAID, SELFPAY ==
[2021-10-20] VITALS (51 sets, daily range): BP systolic 108–159; BP diastolic 58–82; PULSE 55–104; RESP 16–24; TEMP 36.4–37.3; TEMPC 36.4; O2SAT 87–100; BMI 37.8
[2021-10-20 09:41] LABS: ROM Plus Positive
--- NOTE | 2021-10-20 09:51 | W.PM.OBHPL1 ---
Date of service: 10/20/21 Time of Service: 09:51 Assessment and Plan Assessment and plan (1) Active labor at term: Status: Acute Assessment and plan: 1. admit, IV access due to patient desires epidural 2. COVID screen, routine labs and CMP due to edema and proteinuria 3. Expect NVD. OB-HPI Labor/Delivery History of Present Illness Reason for Visit: rule out labor Chief Complaint: Uterine Contractions; Suspected Rupture of Membranes (reports large gush of fluid with some bloody discharge at 0730 contractions started shortly after) , Associated Signs and Symptoms of Suspected ROM: fluid leaking . JACOB Calculator Estimated Delivery Date Method Current WG Current Estimate 10/28/21 Ultrasound #1 38w 6d Other Estimates 10/18/21 LMP (Certain) 40w 2d History of Present Expected Delivery Route/Plan - CNM FOB - Nahun Welch (first child). They live together. Rubella non-immune, offer MMR GBS neg BB Social Circle Ashwin yes to circ Support in labor - Nahun and Sheron, her friend. Specific Issues/Plan 1. Cramping in first trimester - viable IUP confirmed, issue resolved 2. Migraine history - discontinued imitrex and lamictal with - fioricet escribed for migraine 03/16/21 #20 tablets 2a. magnesium recommended daily. Neuro consult 04/08- fioricet d/c'ed. Cyproheptadine prescribed 4 mg at HS daily. 3. Anxiety, Depression, PTSD, suicidal ideation- History of IV drug use- d/c'ed lamictal with 3a. Sees therapist and psychiatrist, No MAT x 5 yrs, declines ref to [facility] 3b. Pt takes cyproheptadine, which can turn up in UDS as tricyclic antidepressant 4. Leg pain, diagnosed with peripheral neuropathy- treated in the past with gabapentin, amitriptyline, lyrica 4a. Neuro consult w/Dr. Kiran 04/08-pain believed to be fibromyalgia -referred to pain clinic 4b. No meds currently Currently has hip pain- doing yoga for symptoms. 5. Rubella non-immune, offer MMR 6. Nahun is vaccinated - Radha declines covid vaccine. 6. 06/27 - Covid-19 infection, monoclonal antibodies received 07/02 7. Genetic testing options reviewed - declined testing. 8. smoker- occasional vaping with low dose of nicotine 9. + UDS barbituate - stopped taking fioricet, repeat UDS at 36 weeks- pos. for tricyclic antidepressant, consistent with cyproheptatidine prescription. 10. Rh neg - Rhogam at 28 weeks- received 11. FOB hx: Lyme disease, pericarditis- age 20, monocarditis - due to Lyme 12. GIOVANNI is 22.3 at 32 weeks and 98% growth 12a. NST weekly til 36 weeks then twice weekly if indicated by repeat US 12b. will repeat 1 hr glucola at 33 wks which is 139, 3-hr GTT nml 12c. repeat 36 GIOVANNI 14.9 / EFW 94%, NST not indicated 13. 1+ mildly pitting edema and protein in urine dip 10/07, NST and BP nml. 10/14: protein trace, BP nml Assessment: History Reviewed & Current Review of Systems All systems reviewed & are unremarkable except as noted in HPI and below PFSH All Active Problems (Updated 10/20/21 @ 10:33 by Leilani Hampton CNM) Active labor at term (Acute) Proteinuria (Acute) Elevated glucose tolerance test (Acute) Large for gestational age fetus affecting mother, antepartum, third trimester, single gestation (Acute) COVID-19 affecting in second trimester (Acute) History of penicillin allergy (Acute) Anxiety (Chronic) Family history of thyroid disease in mother (Acute) Mother had thyroidectomy as well as MGM (Acute) Migraine with status migrainosus (Acute) Idiopathic small fiber peripheral neuropathy (Acute) Leg pain (Acute) Depression with anxiety (Chronic) Medical History Acute recurrent otitis media ADHD Anxiety Bilateral leg pain Common cold Contraceptive education Depression Drug abuse, IV Ear ache Encounter for IUD removal History of anorexia nervosa History of depression History of prior with SGA Hx of varicella Idiopathic peripheral neuropathy Migraine Migraine Migraine headache with aura Opioid dependence No MAT for 5 years Panic disorder Pap smear for cervical cancer screening Pelvic pain Pelvic pain affecting PTSD (post-traumatic stress disorder) Suicidal ideation history of SI Thumb pain Tobacco use Unresolved grief Vaginal delivery (04/11/13) Vaginal discharge during , antepartum Surgical History No significant past surgical history Family History Mother Devic's syndrome Headache Sister Cancer bone marrow cancer Social History Smoking/Tobacco Use Status: Current-Occasional Smoking risk assessment performed?: Yes Alcohol Intake: former Drug use: Rarely Substance use type: marijuana Adopted: No Household members: children Housing: house Number of Children: 1 current occupation: [employer] working Pets and animals: Yes ([employer]) Current gender identity: female What is your relationship status?: never Panel score (0-1 are the most socially isolated patients): 0 What type of physical activity do you participate in: none Seatbelt use: sometimes Do you feel safe at home: Yes Do you feel safe in your relationship?: Yes History History 2 Para 1 Hx # Term Pregnancies 1 Multiple births 0 Hx # Pregnancies 0 Ectopic pregnancies 0 AB induced 0 Hx Number of Living Children 1 AB spontaneous 0 Past Pregnancies Del. Date GA/Weeks # Outcome Route Wgt Sex Labor Lgth Anesthesia Location Prov Complic 04/11/13 40 No Successful vaginal 5 lb 5 oz Female [facility] Delivery Date: 04/11/13 Last Updated by: Leilani Putnam CNM SGA, Rachelle Meds Allergies and Home Medications Allergies Allergy/AdvReac Type Severity Reaction Status Date / Time ibuprofen Allergy Severe THROAT Verified 10/20/21 09:59 SWELLS paroxetine [From Paxil] Allergy Severe Verified 10/20/21 09:59 codeine Allergy Intermediate HIVES Verified 10/20/21 09:59 penicillin G Allergy Intermediate RASH,HIVES Verified 10/20/21 09:59 amphetamine [From Adderall] Allergy Unknown Verified 10/20/21 09:59 dextroamphetamine Allergy Unknown Verified 10/20/21 09:59 [From Adderall] Home Medications Medication Instructions Recorded Confirmed Type prenat.vits,tracie,svx-[id number] 1 tab PO DAILY 03/20/21 10/20/21 History omeprazole 20 mg capsule,delayed 20 mg PO DAILY PRN 05/02/21 10/20/21 History release ondansetron 4 mg disintegrating 4 mg PO Q6H PRN tab 06/24/21 10/20/21 History tablet sertraline 50 mg tablet 50 mg PO DAILY tab 06/24/21 10/20/21 History cyproheptadine 4 mg tablet See Rx Instructions PO QHS #360 tab 09/04/21 10/20/21 Rx Allergy/Medication Comments:: did not take any of her meds this morning due to nausea and wants to hold at this time.KH Exam Physical Exam Vital signs: Temp Pulse Resp BP 98.6 F 60 20 137/79 10/20/21 08:54 10/20/21 08:54 10/20/21 08:54 10/20/21 08:54 Vital Signs Reviewed: Yes Constitutional Constitutional: mild distress (working well with contractions but considering epidural) and obese Detailed Labor and Delivery Exam Dilation: 6 Effacement (%): 90 station: -2 Dennis Score: Cervical Points Exam 0 1 2 3 Dilation Closed 1-2cm 3-4 cm 5-6cm Effacement 0-30% 40-50% 60-70% 80% Consistency Firm Medium Soft Station -3 -2 -1,0 +1,+2 Position Posterior Mid Anterior DENNIS Score(Cervical Ripeness Score): 12 Amniotic Membrane Status: Ruptured (no gross rupture, nitrazine equivocal but ROM + is positive) Rupture Method: Spontaneous Amniotic Fluid: Clear (per patient with old blood tinge, at 1030 forewaters ruptured moderate mec fluid large amount) Nitrazine: Equivocal ROM Plus: Positive Contraction Frequency(min): 2-3 Contraction Duration(sec): 60-90 Contraction Intensity: Moderate Fetus A Heart Rate Baseline: 120 Monitor Accelerations: 10 X 10 Monitor Decelerations: None Variability: Moderate (6-25 BPM) Presentation: Cephalic Categories: Category I Est. Weight: 7 lb 8 oz Date of Membrane Rupture: 10/20/21 Time of Membrane Rupture: 07:15 HEENT Exam HEENT Exam: Normal Neck Exam Neck Exam: Normal (normal visual inspection, full ROM) Chest/Brest/Axilla Exam Chest Exam: Normal Breast Exam Breast Exam: Normal Respiratory Exam Respiratory Exam: Normal Cardiovascular Exam Cardiovascular Exam: Normal Abdominal Exam Abdominal Exam: Normal (size greater than dates, EFW by last US 93%) Exam Exam: Normal Extremities Exam Extremities Exam: Normal (1+ edema to knees bilaterally) Back/Spine/Pelvis Exam Pelvis Adequate: Yes Skin Exam Skin Exam: Normal Neurological Exam Neurological Exam: Normal Results Results Group Beta Strep: Negative Blood Type: O- Rubella Status: Nonimmune Varicella Immunity: Immune Risk Assessment Risk for Shoulder Dystocia Historical/Initial OB: NEGATIVE FOR: Pelvic Abnormality, Pre- BMI>30, Previous Shoulder Dystocia or Previous Macrosomia 40 Weeks: POSTIVE FOR: Maternal Weight Gain >40lb; NEGATIVE FOR: EFW> 4500 gms or Post Dates Date/Initial: expect NVD 04/04/21 Delivery Plan @ 36wks: EFW was 98% at 32 weeks may increase risk for shoulder dystocia. Delivery Plan @ 40 wks: expect NVD, maternal weight gain of 67 lb BMI currently 37.9 Risk for Pre-Eclampsia Yes, if one or more: NEGATIVE FOR: Hx Pre-E/Gest HTN, Chronic HTN, Multiple Gestation, Pre-gestational DM, Renal Disease, Systemic Lupus or APA Syndrome Yes, if 2 or more: NEGATIVE FOR: Nulliparity, Age>= 35 yrs, >10yr btwn pregnancies, BMI>30, ethinicty, Mother/Sister w/ Pre-E or Previous IUGR Risk for Post- Hemorrhage Initial: NEGATIVE FOR: Multiple Gestation, Previous PPH, Known Clotting Deficiency, Grand Multiparity or Anticoagulation At Risk?: No (GIOVANNI decreased at 36 weeks to 14.9) Interventions: last GIOVANNI at 32 weeks 22.3, repeat at 36 weeks is pending. Date/Initials: 04/04/21 Risks Reviewed Risks Reviewed Upon Admission: Yes
[2021-10-20 10:00] LABS: Source Nasal/Nares
[2021-10-20] MEDS: Normal Saline Flush 10 ML SYR IVP (10:20)
[2021-10-20 10:24] LABS: HCT 38.3 % (36.0-46.0); HGB 12.6 g/dL (11.2-15.7); MCH 28.9 pg (27.0-33.0); MCHC 32.9 % (32.0-36.0); MCV 87.8 fL (80-95); MPV 12.1 fL (8.0-11.0); Platelet Count 161 10^3/uL (130-400); RBC 4.36 10^6/uL (3.93-5.22); RDW 13.6 % (11.7-14.6); RDW-SD 42.9 fL
[2021-10-20] MEDS: Lactated Ringers 1,000 ML 150 ML IV ×3 (10:35→18:01)
[2021-10-20 10:38] LABS: COVID-19 PCR Negative (Negative)
[2021-10-20 10:53] LABS: ALT 16 U/L (14-59); AST 17 U/L (15-37); Albumin 2.7 g/dL (3.4-5.0); Alkaline Phosphatase 253 U/L (46-116); Anion Gap 11.5 mmol/L (3-11); BUN 12 mg/dL (7-18); Bilirubin, Total 0.4 mg/dL (0.2-1.0); CO2 22.5 mmol/L (21.0-32.0); CREATININE 0.8 mg/dL (0.55-1.02); Calcium 8.6 mg/dL (8.5-10.1); Chloride 103 mmol/L (98-107); Glucose 80 mg/dL (74-106); Potassium 4.3 mmol/L (3.5-5.1); Sodium 137 mmol/L (136-145); Total Protein 6.7 g/dL (6.4-8.2)
--- NOTE | 2021-10-20 10:57 | ANES.PREOP_ITS ---
General Info Date of Service Date Performed: 10/20/21 Height: 5 ft 2 in Weight: 93.894 kg Body Mass Index (BMI): 37.8 Meds Allergies and Home Medications Allergies Allergy/AdvReac Type Severity Reaction Status Date / Time ibuprofen Allergy Severe THROAT Verified 10/20/21 09:59 SWELLS paroxetine [From Paxil] Allergy Severe Verified 10/20/21 09:59 codeine Allergy Intermediate HIVES Verified 10/20/21 09:59 penicillin G Allergy Intermediate RASH,HIVES Verified 10/20/21 09:59 amphetamine [From Adderall] Allergy Unknown Verified 10/20/21 09:59 dextroamphetamine Allergy Unknown Verified 10/20/21 09:59 [From Adderall] Home Medication Medication Instructions Recorded prenat.vits,tracie,ado-djtl-onpva 1 tab PO DAILY 03/20/21 omeprazole 20 mg capsule,delayed 20 mg PO DAILY PRN 05/02/21 release ondansetron 4 mg disintegrating 4 mg PO Q6H PRN tab 06/24/21 tablet sertraline 50 mg tablet 50 mg PO DAILY tab 06/24/21 cyproheptadine 4 mg tablet See Rx Instructions PO QHS #360 tab 09/04/21 Current Visit Medications: Current Medications Generic Name Dose Route Start Last Admin Trade Name Freq PRN Reason Stop Dose Admin Fentanyl/Ropivacaine 200 ml 10/20/21 10:30 Fentanyl/Ropivacaine 2 Mcg/Ml And 0.1% 200 Ml [place] EP DIRECTED KEVIN Sodium Chloride 500 mls @ 0 mls/hr 10/20/21 09:47 Saline 500ml Bag IV PRN PRN As Directed Ringer's Solution 1,000 mls @ 150 mls/hr 10/20/21 10:00 10/20/21 10:35 IV 150 mls/hr INFUSION KEVIN Administration Ringer's Solution 500 mls @ 500 mls/hr 10/20/21 10:30 IV 10/20/21 11:29 BOLUS ONE IV Miscellaneous Supplies 1 each 10/20/21 10:00 Iv Access IV DIRECTED KEVIN Sertraline HCl 50 mg 10/21/21 08:30 Sertraline 50 Mg Tab PO DAILY KEVIN Sodium Chloride 0 ml 10/20/21 09:47 10/20/21 10:20 Normal Saline Flush 10 Ml Syr IVP 10 ml PRN PRN Administration PFSH Active Problems Active Problems: Problem Status Onset Code Active labor at term Proteinuria R80.9 Elevated glucose tolerance test R73.09 Large for gestational age fetus affecting mother, antepartum, third trimester, single gestation O36.63X0 COVID-19 affecting in second trimester O98.512, U07.1 History of penicillin allergy Z88.0 Anxiety F41.9 Family history of thyroid disease in mother Z83.49 Z34.90 Migraine with status migrainosus G43.901 Idiopathic small fiber peripheral neuropathy G60.9 Leg pain M79.606 Depression with anxiety F41.8 Medical History Medical History Acute recurrent otitis media ADHD Anxiety Bilateral leg pain Common cold Contraceptive education Depression Drug abuse, IV Ear ache Encounter for IUD removal History of anorexia nervosa History of depression History of prior with SGA Hx of varicella Idiopathic peripheral neuropathy Migraine Migraine Migraine headache with aura Opioid dependence No MAT for 5 years Panic disorder Pap smear for cervical cancer screening Pelvic pain Pelvic pain affecting PTSD (post-traumatic stress disorder) Suicidal ideation history of SI Thumb pain Tobacco use Unresolved grief Vaginal delivery (04/11/13) Vaginal discharge during , antepartum Surgical History Surgical History No significant past surgical history Tobacco Smoking/Tobacco Use Status: Current-Occasional Alcohol Alcohol Intake: former Substance Use Substance use: Rarely Substance use type: marijuana Prental History History 2 Para 1 Hx # Term Pregnancies 1 Multiple births 0 Hx # Pregnancies 0 Ectopic pregnancies 0 AB induced 0 Hx Number of Living Children 1 AB spontaneous 0 Past Pregnancies Del. Date GA/Weeks # Outcome Route Wgt Sex Labor Lgth Anesthes ia Location Prov Complic 04/11/13 40 No Successful vaginal 2409.709 g Female 14 regional [facility] Delivery Date: 04/11/13 Last Updated by: Leilani Putnam CNM SGA, Rachelle Vital Signs and Lab Results Vital Signs Most Recent Vital Signs in EMR: Most Recent Vital Signs Temp Pulse Resp BP 37.0 C 60 20 137/79 10/20/21 08:54 10/20/21 08:54 10/20/21 08:54 10/20/21 08:54 Lab Results Result Diagrams: 10/20/21 10:15 10/20/21 10:15 Blood Type / Crossmatch: Patient ABO/Rh O Negative 10/20/21 Antibody Screen NEGATIVE 10/20/21 Complete Blood Count: White Blood Count 11.30 10^3/uL (4.4-10.8) H 10/20/21 10:15 10/20/21 Red Blood Count 4.36 10^6/uL (3.93-5.22) 10/20/21 10:15 10/20/21 Hemoglobin 12.6 g/dL (11.2-15.7) 10/20/21 10:15 10/20/21 Hematocrit 38.3 % (36.0-46.0) 10/20/21 10:15 10/20/21 Platelet Count 161 10^3/uL (130-400) 10/20/21 10:15 10/20/21 Complete Metabolic Panel: Sodium Level 137 mmol/L (136-145) 10/20/21 10:15 10/20/21 Potassium Level 4.3 mmol/L (3.5-5.1) 10/20/21 10:15 10/20/21 Chloride Level 103 mmol/L (98-107) 10/20/21 10:15 10/20/21 Carbon Dioxide Level 22.5 mmol/L (21.0-32.0) 10/20/21 10:15 10/20/21 Blood Urea Nitrogen 12 mg/dL (7-18) 10/20/21 10:10/20/21 Creatinine 0.8 mg/dL (0.55-1.02) 10/20/21 10:15 10/20/21 Estimated GFR/1.73 m2 >= 60.00 (mL/min/1.73m2) 10/20/21 10:10/20/21 Calcium Level 8.6 mg/dL (8.5-10.1) 10/20/21 10:10/20/21 Albumin 2.7 g/dL (3.4-5.0) L 10/20/21 10:15 10/20/21 Glucose Level 80 mg/dL (74-106) 10/20/21 10:15 10/20/21 Liver Function Panel: Alanine Aminotransferase (ALT/SGPT) 16 U/L (14-59) 10/20/21 10:15 10/20/21 Aspartate Amino Transf (AST/SGOT) 17 U/L (15-37) 10/20/21 10:15 10/20/21 Coagulation Panel: No Data to Display Cardiac Panel: No Data to Display Arterial Blood Gas: No Data to Display Venous Blood Gas: No Data to Display Pancreas Panel: No Data to Display Thyroid Panel: No Data to Display Infectious Disease: Coronavirus (COVID-19)(PCR) Negative (Negative) 10/20/21 09:55 10/20/21 Coronavirus 2019 Source Nasal/Nares 10/20/21 09:55 10/20/21 Blood Cultures: No Data to Display Toxicology Panel: Urine Amphetamines Screen Negative (Negative) 09/30/21 14:25 09/30/21 Urine Benzodiazepines Screen Negative (Negative) 09/30/21 14:25 09/30/21 Urine Barbiturates Screen Negative (Negative) 09/30/21 14:25 09/30/21 Urine Cocaine Screen Negative (Negative) 09/30/21 14:25 09/30/21 Urine Methadone Screen Negative (Negative) 09/30/21 14:25 09/30/21 Urine Opiates Screen Negative (Negative) 09/30/21 14:25 09/30/21 Ur Tricyclic Antidepressants Screen Positive (Negative) A 09/30/21 14:25 09/30/21 Ur Tetrahydrocannabinol (THC) Scrn Negative (Negative) 09/30/21 14:25 09/30/21 Panel: No Data to Display Anesthesia Assessment and Plan Anesthesia History Personal History: No History of Anesthesia Complications Family History: No Family History of Anesthesia Complications Exercise Tolerance Exercise Tolerance: Metabolic Equivalents>4 Cardiac & Pulmonary Exam Cardiac Exam: Normal S1/S2 Heart Sounds Pulmonary Exam: Clear Bilateral Breath Sounds Implantable Cardiac Device Does patient have a Pacemaker or an ICD?: No Airway Exam Known Difficult Airway: No Mallampati Class: 2 Mouth Opening: Normal (> 3cm) Thyromental Distance: Greater than 3 cm Neck Range of Motion: Full ROM Neck Circumference: Normal Teeth Condition: Normal Dentition ASA Classification ASA Score: ASA 2 Emergency Case?: No NPO Status NPO Status: Full Stomach Status Status: Other (preg) Anesthesia Plan Resuscitation Status: Full Code Anesthesia Technique: Epidural Anesthesia Airway Planned: Natural Airway Pain Management: Epidural Monitors Used: Standard Monitors Preoperative Comments:: 31 yo female at 6 cm requesting epidural for analgesia. epidural with last . Sig PMHx: IVDA, migraine, anxiety/depression, fibromyalgia, occ nicotine
--- NOTE | 2021-10-20 10:58 | W.PM.OBNL1 ---
Date of service: 10/20/21 Time of Service: 10:58 Informed Consent Informed Consent: Other (normal labor, reviewed epidural ) Pelvic Exam Comments: VE deferred Contractions Monitor Mode: External Contraction Frequency(min): 2-3 Contraction Duration(sec): 60 Intensity: Moderate/Strong Fetus A Monitor: External (US) Heart Rate Baseline: 120 Presentation: Cephalic Variability: Moderate (6-25 BPM) Categories: Category I Accelerations: 10 X 10 Decelerations: None Assessment and Plan Assessment and plan (1) Active labor at term: Status: Acute Assessment and plan: 1. epidural requested, anesthesia provider en route to hospital 2. Pediatric and OB physician providers notified of patient status and meconium fluid 3. Expect NVD. KH Objective Abnormal lab results 10/20/21 10/20/21 Range/Units 10:15 10:15 WBC 11.30 H (4.4-10.8) 10^3/uL MPV 12.1 H (8.0-11.0) fL Anion Gap 11.5 H (3-11) mmol/L Alkaline Phosphatase 253 H (46-116) U/L Albumin 2.7 L (3.4-5.0) g/dL Temp Pulse Resp BP 98.6 F 60 20 137/79 10/20/21 08:54 10/20/21 08:54 10/20/21 08:54 10/20/21 08:54 Laboratory Results WBC 11.30 10^3/uL (4.4-10.8) H 10/20/21 10:15 RBC 4.36 10^6/uL (3.93-5.22) 10/20/21 10:15 Hgb 12.6 g/dL (11.2-15.7) 10/20/21 10:15 Hct 38.3 % (36.0-46.0) 10/20/21 10:15 MCV 87.8 fL (80-95) 10/20/21 10:15 MCH 28.9 pg (27.0-33.0) 10/20/21 10:15 MCHC 32.9 % (32.0-36.0) 10/20/21 10:15 RDW 13.6 % (11.7-14.6) 10/20/21 10:15 Plt Count 161 10^3/uL (130-400) 10/20/21 10:15 MPV 12.1 fL (8.0-11.0) H 10/20/21 10:15 Sodium 137 mmol/L (136-145) 10/20/21 10:15 Potassium 4.3 mmol/L (3.5-5.1) 10/20/21 10:15 Chloride 103 mmol/L (98-107) 10/20/21 10:15 Carbon Dioxide 22.5 mmol/L (21.0-32.0) 10/20/21 10:15 Anion Gap 11.5 mmol/L (3-11) H 10/20/21 10:15 BUN 12 mg/dL (7-18) 10/20/21 10:15 Creatinine 0.8 mg/dL (0.55-1.02) 10/20/21 10:15 Estimated GFR/1.73 m2 >= 60.00 (mL/min/1.73m2) 10/20/21 10:15 Glucose 80 mg/dL (74-106) 10/20/21 10:15 Calcium 8.6 mg/dL (8.5-10.1) 10/20/21 10:15 Total Bilirubin 0.4 mg/dL (0.2-1.0) 10/20/21 10:15 AST 17 U/L (15-37) 10/20/21 10:15 ALT 16 U/L (14-59) 10/20/21 10:15 Alkaline Phosphatase 253 U/L (46-116) H 10/20/21 10:15 Total Protein 6.7 g/dL (6.4-8.2) 10/20/21 10:15 Albumin 2.7 g/dL (3.4-5.0) L 10/20/21 10:15 Membranes Rupture Positive 10/20/21 09:15 COVID-19 Source Cancelled 10/20/21 10:00 SARS-CoV-2 (PCR) Cancelled 10/20/21 10:00 Patient ABO/Rh O Negative 10/20/21 10:15 Vital Signs Reviewed: Yes Objective Narrative Objective Narrative: outside of mild anemia, lab normal Subjective Interval history since last seen: patient has requested epidural, anesthesia provider Anguiano notified and is en route. Due to meconium fluid commercial lines underwriter notified Dr. Hernandez who is OB physician corrections caseworker and nursing has notified Dr. Collado who is pediatric provider corrections caseworker of fluid and patient status, overall patient and baby are doing well. KH Results Hemoglobin/Hematocrit: Hgb 12.6 g/dL (11.2-15.7) 10/20/21 10:15 Hct 38.3 % (36.0-46.0) 10/20/21 10:15 Abnormal Lab Findings: Abnormal Labs 10/20/21 10/20/21 10:15 10:15 WBC 11.30 H MPV 12.1 H Anion Gap 11.5 H Alkaline Phosphatase 253 H Albumin 2.7 L
--- NOTE | 2021-10-20 11:41 | W.ANESNEU ---
Epidural/Spinal Catheter Date Performed: 10/20/21 Procedure Start: 11:25 Procedure Stop: 11:40 Requesting Provider: Leilani Hampton Procedure Location: Obstetrics Reason Performed: Labor Epidural Standard Monitors Applied: Blood Pressure and SpO2 Patient Position: Sitting Sedation Given (Indicate Dose Given): No Sedation given Patient Mental Status: Awake Sterility: Hand Hygiene, Surgical Cap, Surgical Mask, Sterile Gloves, Sterile Drape/Sheet and Chlorhexidine Procedure Location: L3-L4 Interspace Epidural Needle: Tuohy 17 Guage Needle Length: 3.5 Inch Needle Approach: Midline Epidural Procedure: Skin Prepped, 1% Lidocaine to skin and subcutaneous tissue with 25G needle, Tuohy Needle placed and ROSEMARIE to Saline Used Catheter Placed?: Catheter Placed Test Dose (Indicate Dose Given): 3ml 1.5% Lidocaine with 1:200K Epinephrine Given and Negative Test Dose Loss of Resistance Depth (cm): 7 Catheter depth at skin (cm): 13 Dressing: [place] Dressing Placed, Tegaderm Applied and Mastisol Used Epidural Provider Bolus (Indicate Dose Given): None Given and Total Ropivacaine 0.1% with Fentanyl 2mcg/ml Given from pump. (ml) Dose:: 7 mL Additives (Indicate Dose Given ): None Infusion Medication: Medication Infusion Began Medication Infusion: Ropivacaine 0.1% with Fentanyl 2mcg/ml Maintenance Infusion Rate (ml/hour): 10 PCEA Bolus Dose (ml): 5 Block Level: N/A Paresthesia: None Ultrasound: Used to bel site Number of Attempts (See previous attempts in note section): 2 Procedure Tolerated: No Complications Procedure Outcome: Successful Procedure Comment:: Pt endorses ? of pulling catheter back or re-siteing with first baby, she believes just catheter pulled back. This was done it seems due to unequal block. we discussed that that in general is ~ a 1:20 complication and that if it happened before it may/likely will happen again. 2 attempts, first attempt at US marked site, pt sat up during and rotated back to talk, needle not advancing well after, removed, and found to be bent. 2nd attempt just slightly left of first attempt, and ROSEMARIE obtained without difficulty. visibly and stated more comfortable after 7 mL load off pump. Educated on PCEA function. no sig hemodynamic changes. Performed By: Luis Anguiano
[2021-10-20] MEDS: Acetaminophen 325 MG TAB 650 MG PO (12:53)
--- NOTE | 2021-10-20 14:27 | W.PM.OBNL1 ---
Date of service: 10/20/21 Time of Service: 14:27 Informed Consent Informed Consent: Augmentation of Labor (discussed that if no significant increase in contractions strength in 2 hours we may consider augmentation with pitocin and use of IUPC to allow for us to know strength of contractions not just frequency. KH) and Other (normal labor, reviewed epidural ) Pelvic Exam Dilation: 7 Effacement (%): 80 station: -2 Position: ABRIL Cervix Position: mid Consistency: soft Contractions Monitor Mode: External Contraction Frequency(min): 2-3 Contraction Duration(sec): 60 Intensity: Mild/Moderate (data analyst report writer palpated with VE, minimal cervical changes or descent of head with mild contraction.) Fetus A Monitor: External (US) Heart Rate Baseline: 130 Presentation: Cephalic Variability: Moderate (6-25 BPM) Categories: Category I Accelerations: Absent Decelerations: None Assessment and Plan Assessment and plan (1) Active labor at term: Status: Acute Assessment and plan: 1. minimal cervical change in 2 hours, 7/80/-2 2. contraction mild on VE, consider augmentation in 2 hours if no changes, will use IUPC to allow for pitocin use due to frequency of contractions but lack of intensity. KH (2) Thick meconium stained amniotic fluid: Status: Acute Assessment and plan: 1. continues to leak meconium (non particulate) fluid. 2. OB Physician and Pediatric Physician aware, continue present management. KH Objective Abnormal lab results 10/20/21 10/20/21 Range/Units 10:15 10:15 WBC 11.30 H (4.4-10.8) 10^3/uL MPV 12.1 H (8.0-11.0) fL Anion Gap 11.5 H (3-11) mmol/L Alkaline Phosphatase 253 H (46-116) U/L Albumin 2.7 L (3.4-5.0) g/dL Temp Pulse Resp BP Pulse Ox 97.5 F L 62 20 137/81 100 10/20/21 13:00 10/20/21 13:29 10/20/21 08:54 10/20/21 13:29 10/20/21 13:27 Laboratory Results WBC 11.30 10^3/uL (4.4-10.8) H 10/20/21 10:15 RBC 4.36 10^6/uL (3.93-5.22) 10/20/21 10:15 Hgb 12.6 g/dL (11.2-15.7) 10/20/21 10:15 Hct 38.3 % (36.0-46.0) 10/20/21 10:15 MCV 87.8 fL (80-95) 10/20/21 10:15 MCH 28.9 pg (27.0-33.0) 10/20/21 10:15 MCHC 32.9 % (32.0-36.0) 10/20/21 10:15 RDW 13.6 % (11.7-14.6) 10/20/21 10:15 Plt Count 161 10^3/uL (130-400) 10/20/21 10:15 MPV 12.1 fL (8.0-11.0) H 10/20/21 10:15 Sodium 137 mmol/L (136-145) 10/20/21 10:15 Potassium 4.3 mmol/L (3.5-5.1) 10/20/21 10:15 Chloride 103 mmol/L (98-107) 10/20/21 10:15 Carbon Dioxide 22.5 mmol/L (21.0-32.0) 10/20/21 10:15 Anion Gap 11.5 mmol/L (3-11) H 10/20/21 10:15 BUN 12 mg/dL (7-18) 10/20/21 10:15 Creatinine 0.8 mg/dL (0.55-1.02) 10/20/21 10:15 Estimated GFR/1.73 m2 >= 60.00 (mL/min/1.73m2) 10/20/21 10:15 Glucose 80 mg/dL (74-106) 10/20/21 10:15 Calcium 8.6 mg/dL (8.5-10.1) 10/20/21 10:15 Total Bilirubin 0.4 mg/dL (0.2-1.0) 10/20/21 10:15 AST 17 U/L (15-37) 10/20/21 10:15 ALT 16 U/L (14-59) 10/20/21 10:15 Alkaline Phosphatase 253 U/L (46-116) H 10/20/21 10:15 Total Protein 6.7 g/dL (6.4-8.2) 10/20/21 10:15 Albumin 2.7 g/dL (3.4-5.0) L 10/20/21 10:15 Membranes Rupture Positive 10/20/21 09:15 COVID-19 Source Cancelled 10/20/21 10:00 SARS-CoV-2 (PCR) Cancelled 10/20/21 10:00 Patient ABO/Rh O Negative 10/20/21 10:15 Antibody Screen NEGATIVE 10/20/21 10:15 Vital Signs Reviewed: Yes Objective Narrative Objective Narrative: minimal urine return with straight catheter, will give IV bolus. KH Subjective Interval history since last seen: Patient has been very comfortable since epidural. She is resting and chatting with the FOB Jake and her friend. She denies urge to push. Had sensation that she needed to void but straight catheter use only elicited 50cc of urine. Results Hemoglobin/Hematocrit: Hgb 12.6 g/dL (11.2-15.7) 10/20/21 10:15 Hct 38.3 % (36.0-46.0) 10/20/21 10:15 Abnormal Lab Findings: Abnormal Labs 10/20/21 10/20/21 10:15 10:15 WBC 11.30 H MPV 12.1 H Anion Gap 11.5 H Alkaline Phosphatase 253 H Albumin 2.7 L
--- NOTE | 2021-10-20 16:58 | W.PM.OBNL1 ---
Date of service: 10/20/21 Time of Service: 16:58 Informed Consent Informed Consent: Augmentation of Labor (discussed that if no significant increase in contractions strength in 2 hours we may consider augmentation with pitocin and use of IUPC to allow for us to know strength of contractions not just frequency. KH) and Other (normal labor, reviewed epidural ) Pelvic Exam Dilation: 7 Effacement (%): 80 station: -1 Position: ABRIL Cervix Position: mid Contractions Monitor Mode: Internal Contraction Frequency(min): 2-4 Contraction Duration(sec): 50-50 IUPC resting tone (mmHg): 20 IUPC peak pressure (mmHg): 90 IUPC [place] units: 150 Fetus A Monitor: External (US) Heart Rate Baseline: 130 Variability: Moderate (6-25 BPM) Categories: Category I Accelerations: 10 X 10 Decelerations: None Assessment and Plan Assessment and plan (1) Irregular uterine contractions: Status: Acute Assessment and plan: 1. IUPC placed which demonstrates 150-180 MVU over 10 minutes, contractions less frequent that previously being recorded with external monitor. 2. Per previous consult with Dr. Hernandez, will begin pitocin augmentation to achieve adequate contraction strength and frequency, expect NVD. Objective Abnormal lab results 10/20/21 10/20/21 Range/Units 10:15 10:15 WBC 11.30 H (4.4-10.8) 10^3/uL MPV 12.1 H (8.0-11.0) fL Anion Gap 11.5 H (3-11) mmol/L Alkaline Phosphatase 253 H (46-116) U/L Albumin 2.7 L (3.4-5.0) g/dL Temp Pulse Resp BP Pulse Ox 98.1 F 59 L 16 130/78 100 10/20/21 15:50 10/20/21 15:50 10/20/21 15:50 10/20/21 15:50 10/20/21 13:27 Laboratory Results WBC 11.30 10^3/uL (4.4-10.8) H 10/20/21 10:15 RBC 4.36 10^6/uL (3.93-5.22) 10/20/21 10:15 Hgb 12.6 g/dL (11.2-15.7) 10/20/21 10:15 Hct 38.3 % (36.0-46.0) 10/20/21 10:15 MCV 87.8 fL (80-95) 10/20/21 10:15 MCH 28.9 pg (27.0-33.0) 10/20/21 10:15 MCHC 32.9 % (32.0-36.0) 10/20/21 10:15 RDW 13.6 % (11.7-14.6) 10/20/21 10:15 Plt Count 161 10^3/uL (130-400) 10/20/21 10:15 MPV 12.1 fL (8.0-11.0) H 10/20/21 10:15 Sodium 137 mmol/L (136-145) 10/20/21 10:15 Potassium 4.3 mmol/L (3.5-5.1) 10/20/21 10:15 Chloride 103 mmol/L (98-107) 10/20/21 10:15 Carbon Dioxide 22.5 mmol/L (21.0-32.0) 10/20/21 10:15 Anion Gap 11.5 mmol/L (3-11) H 10/20/21 10:15 BUN 12 mg/dL (7-18) 10/20/21 10:15 Creatinine 0.8 mg/dL (0.55-1.02) 10/20/21 10:15 Estimated GFR/1.73 m2 >= 60.00 (mL/min/1.73m2) 10/20/21 10:15 Glucose 80 mg/dL (74-106) 10/20/21 10:15 Calcium 8.6 mg/dL (8.5-10.1) 10/20/21 10:15 Total Bilirubin 0.4 mg/dL (0.2-1.0) 10/20/21 10:15 AST 17 U/L (15-37) 10/20/21 10:15 ALT 16 U/L (14-59) 10/20/21 10:15 Alkaline Phosphatase 253 U/L (46-116) H 10/20/21 10:15 Total Protein 6.7 g/dL (6.4-8.2) 10/20/21 10:15 Albumin 2.7 g/dL (3.4-5.0) L 10/20/21 10:15 Membranes Rupture Positive 10/20/21 09:15 COVID-19 Source Cancelled 10/20/21 10:00 SARS-CoV-2 (PCR) Cancelled 10/20/21 10:00 Patient ABO/Rh O Negative 10/20/21 10:15 Antibody Screen NEGATIVE 10/20/21 10:15 Subjective Interval history since last seen: remains very comfortable, is willing to change positions as often as requested. Denies pain. continues to leak meconium fluid in moderate amounts. KH Results Hemoglobin/Hematocrit: Hgb 12.6 g/dL (11.2-15.7) 10/20/21 10:15 Hct 38.3 % (36.0-46.0) 10/20/21 10:15 Abnormal Lab Findings: Abnormal Labs 10/20/21 10/20/21 10:15 10:15 WBC 11.30 H MPV 12.1 H Anion Gap 11.5 H Alkaline Phosphatase 253 H Albumin 2.7 L
[2021-10-20] MEDS: Oxytocin/Normal Saline 30 UNIT/500 ML BAG 2 UNITS IV (17:15)
[2021-10-20] MEDS: Patient's Own Medication 1 EACH MISC PO (19:15)
--- NOTE | 2021-10-20 20:11 | PGE_ITS ---
Date of service: 10/20/21 Time of Service: 20:11 Informed Consent Informed Consent: Augmentation of Labor (discussed that if no significant increase in contractions strength in 2 hours we may consider augmentation with pitocin and use of IUPC to allow for us to know strength of contractions not just frequency. EBONI) and Other (normal labor, reviewed epidural ) Pelvic Exam Dilation: 7 Effacement (%): 60 station: -2 Assessment and Plan Assessment and plan (1) Prolonged first stage of labor, antepartum: Start date: 10/20/21 Start time: 20:26 Status: Acute Assessment and plan: 1. Dr. Hernandez notified by provider that no cervical change has occured since pitocin augmentation, and that cervix is becoming edematous. 1 cm change since arrival this am. Adequate contractions since 1800 demonstrated by IUPC. FHR CAT I. 2. Dr. Hernandez discussed with anesthesia, they will be attending soon, supervisor carton and can supply notified and pediatric provider notified. 3. Patient agrees that is best option at this time. EBONI Objective Abnormal lab results 10/20/21 10/20/21 Range/Units 10:15 10:15 WBC 11.30 H (4.4-10.8) 10^3/uL MPV 12.1 H (8.0-11.0) fL Anion Gap 11.5 H (3-11) mmol/L Alkaline Phosphatase 253 H (46-116) U/L Albumin 2.7 L (3.4-5.0) g/dL Temp Pulse Resp BP Pulse Ox 98.2 F 69 16 141/82 H 100 10/20/21 19:22 10/20/21 19:22 10/20/21 19:22 10/20/21 19:22 10/20/21 13:27 Laboratory Results WBC 11.30 10^3/uL (4.4-10.8) H 10/20/21 10:15 RBC 4.36 10^6/uL (3.93-5.22) 10/20/21 10:15 Hgb 12.6 g/dL (11.2-15.7) 10/20/21 10:15 Hct 38.3 % (36.0-46.0) 10/20/21 10:15 MCV 87.8 fL (80-95) 10/20/21 10:15 MCH 28.9 pg (27.0-33.0) 10/20/21 10:15 MCHC 32.9 % (32.0-36.0) 10/20/21 10:15 RDW 13.6 % (11.7-14.6) 10/20/21 10:15 Plt Count 161 10^3/uL (130-400) 10/20/21 10:15 MPV 12.1 fL (8.0-11.0) H 10/20/21 10:15 Sodium 137 mmol/L (136-145) 10/20/21 10:15 Potassium 4.3 mmol/L (3.5-5.1) 10/20/21 10:15 Chloride 103 mmol/L (98-107) 10/20/21 10:15 Carbon Dioxide 22.5 mmol/L (21.0-32.0) 10/20/21 10:15 Anion Gap 11.5 mmol/L (3-11) H 10/20/21 10:15 BUN 12 mg/dL (7-18) 10/20/21 10:15 Creatinine 0.8 mg/dL (0.55-1.02) 10/20/21 10:15 Estimated GFR/1.73 m2 >= 60.00 (mL/min/1.73m2) 10/20/21 10:15 Glucose 80 mg/dL (74-106) 10/20/21 10:15 Calcium 8.6 mg/dL (8.5-10.1) 10/20/21 10:15 Total Bilirubin 0.4 mg/dL (0.2-1.0) 10/20/21 10:15 AST 17 U/L (15-37) 10/20/21 10:15 ALT 16 U/L (14-59) 10/20/21 10:15 Alkaline Phosphatase 253 U/L (46-116) H 10/20/21 10:15 Total Protein 6.7 g/dL (6.4-8.2) 10/20/21 10:15 Albumin 2.7 g/dL (3.4-5.0) L 10/20/21 10:15 Membranes Rupture Positive 10/20/21 09:15 COVID-19 Source Cancelled 10/20/21 10:00 SARS-CoV-2 (PCR) Cancelled 10/20/21 10:00 Patient ABO/Rh O Negative 10/20/21 10:15 Antibody Screen NEGATIVE 10/20/21 10:15 Subjective Interval history since last seen: more uncomfortable again with contractions but working well with them. Despite adequate contractions for 2 hours on pitocin 4 mu, cervix is 7 cm but becoming edematous. We discussed that it might be time to call Dr. Hernandez and discuss . Radha is sad that baby is not coming but accepts this plan due to knowledge that despite all her efforts there has not been cervical change. Results Hemoglobin/Hematocrit: Hgb 12.6 g/dL (11.2-15.7) 10/20/21 10:15 Hct 38.3 % (36.0-46.0) 10/20/21 10:15 Abnormal Lab Findings: Abnormal Labs 10/20/21 10/20/21 10:15 10:15 WBC 11.30 H MPV 12.1 H Anion Gap 11.5 H Alkaline Phosphatase 253 H Albumin 2.7 L
[2021-10-20 20:36] LABS: Tricyclic Antidepressants Positive (Negative)
[2021-10-20 20:41] LABS: *AMPHETAMINES SCREEN URINE Negative (Negative); *BARBITURATES SCREEN URINE Negative (Negative); *BENZODIAZEPINES SCREEN URINE Negative (Negative); Cannabinoids THC Negative (Negative); Cocaine Screen,Urine Negative (Negative); METHADONE URINE SCREEN Negative (Negative); OPIATES URINE SCREEN Negative (Negative)
[2021-10-20] MEDS: Sodium Citrate 30 ML CUP PO (20:51)
[2021-10-20] MEDS: AZITHROMYCIN 500 MG in Normal Saline 250 ML 250 MG IVPB (20:56)
--- NOTE | 2021-10-20 21:08 | OBCE_ITS ---
Date of service: 10/20/21 Time of Service: 21:08 Assessment and Plan Assessment and plan (1) Prolonged first stage of labor, antepartum: Status: Acute Assessment and plan: Labor arrest. Will proceed to primary section with desired tubal ligation. Risks, benefits and alternatives explained. Consent obtained (2) Thick meconium stained amniotic fluid: Status: Acute (3) Active labor at term: Status: Acute (4) Elevated glucose tolerance test: Status: Acute (5) COVID-19 affecting in second trimester: Status: Acute (6) History of penicillin allergy: Status: Acute (7) Arrested labor: Status: Acute History of Present Illness History of Present Illness Chief Complaint: Labor arrest Narrative: Patient has had a prolonged course of labor with arrest of dilation at 7 cm. Adequate pain control with epidural. Adequate contractions via IUPC with pitocin augmentation. Desires tubal ligation . [place] medicaid consent signed prior Consults Requesting physician: Leilani Hampton Review of Systems Narrative: painful contractions. Baby active Constitutional Constitutional: Reports as per HPI, Denies chills and Denies fever(s) Eyes Eyes: Reports system reviewed and no additional complaints, except as documented and Denies blurry vision Cardiovascular Cardiovascular: Reports system reviewed and no additional complaints, except as documented, Denies chest pain, Denies irregular heart rhythm and Denies dyspnea Respiratory Respiratory: Denies chest congestion and Denies dyspnea Gastrointestinal Gastrointestinal: Reports system reviewed and no additional complaints, except as documented Genitourinary Genitourinary: Reports system reviewed and no additional complaints, except as documented Musculoskeletal Musculoskeletal: Reports system reviewed and no additional complaints, except as documented Integumentary/Breasts Skin/Breast: Reports system reviewed and no additional complaints, except as documented PFSH All Active Problems (Updated 10/20/21 @ 21:18 by Jerica Hernandez DO) Arrested labor (Acute) Prolonged first stage of labor, antepartum (Acute) Irregular uterine contractions (Acute) Thick meconium stained amniotic fluid (Acute) Active labor at term (Acute) Proteinuria (Acute) Elevated glucose tolerance test (Acute) Large for gestational age fetus affecting mother, antepartum, third trimester, single gestation (Acute) COVID-19 affecting in second trimester (Acute) History of penicillin allergy (Acute) Anxiety (Chronic) Family history of thyroid disease in mother (Acute) Mother had thyroidectomy as well as MGM (Acute) Migraine with status migrainosus (Acute) Idiopathic small fiber peripheral neuropathy (Acute) Leg pain (Acute) Depression with anxiety (Chronic) Medical History Acute recurrent otitis media ADHD Anxiety Bilateral leg pain Common cold Contraceptive education Depression Drug abuse, IV Ear ache Encounter for IUD removal History of anorexia nervosa History of depression History of prior with SGA Hx of varicella Idiopathic peripheral neuropathy Migraine Migraine Migraine headache with aura Opioid dependence No MAT for 5 years Panic disorder Pap smear for cervical cancer screening Pelvic pain Pelvic pain affecting PTSD (post-traumatic stress disorder) Suicidal ideation history of SI Thumb pain Tobacco use Unresolved grief Vaginal delivery (04/11/13) Vaginal discharge during , antepartum Surgical History No significant past surgical history Family History Mother Devic's syndrome Headache Sister Cancer bone marrow cancer Social History Smoking/Tobacco Use Status: Current-Occasional Smoking risk assessment performed?: Yes Alcohol Intake: former Drug use: Rarely Substance use type: marijuana Adopted: No Household members: children Housing: house Number of Children: 1 current occupation: [employer] working Pets and animals: Yes (hermit [employer]) Current gender identity: female What is your relationship status?: never Panel score (0-1 are the most socially isolated patients): 0 What type of physical activity do you participate in: none Seatbelt use: sometimes Do you feel safe at home: Yes Do you feel safe in your relationship?: Yes History History 2 Para 1 Hx # Term Pregnancies 1 Multiple births 0 Hx # Pregnancies 0 Ectopic pregnancies 0 AB induced 0 Hx Number of Living Children 1 AB spontaneous 0 Past Pregnancies Del. Date GA/Weeks # Outcome Route Wgt Sex Labor Lgth Anesthes ia Location Prov Complic 04/11/13 40 No Successful vaginal 5 lb 5 oz Female 14 [facility] Delivery Date: 04/11/13 Last Updated by: Leilani Putnam CNM SGA, Rachelle Exam Narrative Exam Narrative: Doing well. All questions answered Const General: cooperative, healthy appearing, comfortable, no acute distress, well developed and well groomed Nutritional Appearance: average body habitus HENMT Head: normal to inspection Neck Neck: normal visual inspection, full ROM and supple Resp Effort & Inspection: normal respiratory effort Auscultation: clear to auscultation bilaterally, no crackles, no rales, no rhonchi and no wheezes Cardio Rate: regular rate Rhythm: regular rhythm Extrem General: normal to inspection and edema (1+) Laterality: bilateral Results Last Vital Signs Temp 98.2 F 10/20/21 19:22 Pulse 69 10/20/21 19:22 Resp 16 10/20/21 19:22 BP 141/82 H 10/20/21 19:22 Pulse Ox 100 10/20/21 13:27 Labs Result diagrams: 10/20/21 10:15 10/20/21 10:15 Labs: Laboratory Results - last 24 hr 10/20/21 10/20/21 10/20/21 09:15 09:55 10:00 WBC RBC Hgb Hct MCV MCH MCHC RDW Plt Count MPV Sodium Potassium Chloride Carbon Dioxide Anion Gap BUN Creatinine Estimated GFR/1.73 m2 Glucose Calcium Total Bilirubin AST ALT Alkaline Phosphatase Total Protein Albumin Membranes Rupture Positive Urine Opiates Screen Urine Methadone Screen Ur Barbiturates Screen Ur Tricyclics Screen Ur Amphetamines Screen U Benzodiazepines Scrn Urine Cocaine Screen Ur THC Screen COVID-19 Source Nasal/Nares Cancelled SARS-CoV-2 (PCR) Negative Cancelled Patient ABO/Rh Antibody Screen 10/20/21 10/20/21 10/20/21 10:15 10:15 10:15 WBC 11.30 H RBC 4.36 Hgb 12.6 Hct 38.3 MCV 87.8 MCH 28.9 MCHC 32.9 RDW 13.6 Plt Count 161 MPV 12.1 H Sodium 137 Potassium 4.3 Chloride 103 Carbon Dioxide 22.5 Anion Gap 11.5 H BUN 12 Creatinine 0.8 Estimated GFR/1.73 m2 >= 60.00 Glucose 80 Calcium 8.6 Total Bilirubin 0.4 AST 17 ALT 16 Alkaline Phosphatase 253 H Total Protein 6.7 Albumin 2.7 L Membranes Rupture Urine Opiates Screen Urine Methadone Screen Ur Barbiturates Screen Ur Tricyclics Screen Ur Amphetamines Screen U Benzodiazepines Scrn Urine Cocaine Screen Ur THC Screen COVID-19 Source SARS-CoV-2 (PCR) Patient ABO/Rh O Negative Antibody Screen NEGATIVE 10/20/21 19:00 WBC RBC Hgb Hct MCV MCH MCHC RDW Plt Count MPV Sodium Potassium Chloride Carbon Dioxide Anion Gap BUN Creatinine Estimated GFR/1.73 m2 Glucose Calcium Total Bilirubin AST ALT Alkaline Phosphatase Total Protein Albumin Membranes Rupture Urine Opiates Screen Negative Urine Methadone Screen Negative Ur Barbiturates Screen Negative Ur Tricyclics Screen Positive A Ur Amphetamines Screen Negative U Benzodiazepines Scrn Negative Urine Cocaine Screen Negative Ur THC Screen Negative COVID-19 Source SARS-CoV-2 (PCR) Patient ABO/Rh Antibody Screen
[2021-10-20] MEDS: CLINDAMYCIN 900 MG/50 ML BAG 50 MG IVPB (21:20)
[2021-10-20] MEDS: Lactated Ringers 1,000 ML 200 ML IV (21:20)
[2021-10-20] MEDS: Bupivacaine 0.25% Pres-Free 30 ML VIAL (21:38)
--- NOTE | 2021-10-20 21:46 | PLAC_PTH ---
PATIENT: Radha Schmidt LOC: OBS U#:[id number] AGE/SX: 31/F ROOM: OBS.303 RE10/20/[address]: Leilani Hampton CNM : 1990 BED: A DIS: 10/22/2021 SPEC #: [id number] RECD: 10/21/21 11:05 STATUS: HAILE REQ #: [id number] AAKASH: 10/20/21 21:[address]: Leilani Hampton DEPT: Surgical Specimen RECD BY: Mona Bhandari ENTERED: 10/21/21 11:07 SP TYPE: PLAC OTHR DR: iTm Kim Tissues: 1 - PLACENTA (3RD TRIMESTER) Procedures: GROSS AND MICRO LEVEL 5 Comments: [id number]
[2021-10-20 22:25] LABS: BE Umbilical Arterial -3 mmol/L; pCO2 Umbilical Arterial 48 mmHg (34-78)
[2021-10-20 22:26] LABS: BE Umbilical Venous -3 mmol/L; pCO2 Umbilical Venous 44 mmHg (30-63); pH Umbilical Venous 7.33 (7.25-7.45); pO2 Umbilical Venous 22 mmHg (17-41)
[2021-10-20 22:35] LABS: pO2 Umbilical Arterial < 13 mmHg (6-31)
--- NOTE | 2021-10-20 22:46 | W.ANESPOSTOP ---
Postoperative Evaluation Date, Time and Location Date Performed: 10/20/21 Time Performed: 22:46 Patient Location: Obstetrics Vital Signs Most Recent Imported Vital Signs: Most Recent Vital Signs Temp Pulse Resp BP Pulse Ox 36.8 C 69 16 141/82 H 100 10/20/21 19:22 10/20/21 19:22 10/20/21 19:22 10/20/21 19:10/20/21 13:27 Most Recent Manually Entered Vital Signs: Adult Blood Pressure: 159/68 Heart Rate: 103 Respirations: 24 Oxygen Saturation (%): 99 Temperature (C): 36.4 C Pain Score (0-10 Scale): 0 Pain Score Most Recent Pain Score: Most Recent Pain Score Pain Level 4 10/20/21 12:53 Assessment Mental Status: Awake (Alert & Oriented to Patient Baseline) Airway and Respiratory Function: Patent airway with normal (patient baseline) respiratory exam Cardiovascular Function: Hemodynamically Stable Hydration Status: Adequately Hydrated Nausea & Vomiting: No Nausea or Vomiting Pain: Pt. Denies Any Pain Peripheral Nerve Block: Patient did not receive a nerve block Postoperative Comments:: spinal not yet regressed, shivering stopped after dexmed.
--- NOTE | 2021-10-20 23:03 | PDOC.OPNB_ITS ---
Date of service: 10/20/21 Time of Service: 23:03 Operative Note Operative Note Delivery Method: Unscheduled STAT: No and Primary NTSV>37 Weeks: No DATE OF PROCEDURE: 10/20/21 PRE-OP DIAGNOSES: at 38-6/7 weeks gestation, meconium fluid, labor arrest Same with occiput transverse PROCEDURE: Primary low transverse section SURGEON: Jerica Hernandez Assisting Surgeon: Leilani Hampton Anesthesia: local and spinal Estimated blood loss (mL): 850 Pathology: other (Placenta and cord gases) Complications: None Patient was transported to: floor Patient's condition: stable Indications: Labor arrest at 7 cm Findings: Thick meconium stained fluid, occiput transverse Procedure Description: Patient is a 31-year-old female multigravid who had [facility]wifery group. was complicated by Covid positivity during the second trimester. During the third trimester, she also had mildly elevated amniotic fluid, which resolved spontaneously. She did earlier in have evidence of glucose intolerance with normal Accu-Chek following. She presented to the center today in early active labor with spontaneous rupture of membranes for meconium-stained fluid. She progressed to 6 cm and received epidural for pain control. She had slow progression of her labor and subsequently required IUPC for verification of contraction adequacy, and augmentation of labor with Pitocin. She failed to dilate to beyond 7 cm. Throughout the course of the labor, heart rate tracing was category 1, without concerns. In light of her arrest of labor, I was consulted for evaluation. Risk benefits and alternatives of delivery were explained to the patient in full informed consent was obtained. She had, in her chart a [place] Medicaid form signed for the possibility of tubal ligation, however I am thorough evaluation of this, date was noted to be 10/14/2021 which is less than 30 days from signing. In light of this fact, previously consented tubal ligation could not be performed today. Patient understands this and will have a tubal ligation after her 6-week checkup. She was taken the operating suite with an IV running where she was placed in the seated position and her previous epidural catheter was removed, spinal anesthesia administered, tested and found to be adequate. She was then placed in dorsal supine position with leftward tilt and prepped and draped in usual sterile fashion. She had pneumatic compression stockings for thromboembolism protection, Pritchard catheter for continuous bladder drainage, and she did receive IV antibiotics with clindamycin and azithromycin due to her penicillin allergy. Her vagina was prepped with Betadine and she was placed with a leftward tilt. After testing for adequate anesthesia, quarter percent Marcaine was infiltrated in the subcutaneous space. Pfannenstiel skin incision was made and carried down to the underlying fascia. The fascia was nicked in the midline and fascial incision was extended laterally. The rectus muscles were identified split in the midline and the peritoneum identified tented up and entered sharply. The peritoneal incision was then extended bluntly superiorly and inferiorly and the bladder blade was inserted. The vesicouterine peritoneum identified tented up and entered sharply and a bladder flap created. The bladder blade was then reinserted and a low transverse uterine incision was made with an incision in the midline and extended bluntly laterally. The vertex was noted to be in the occiput transverse position with a moderate amount of caput. The vertex was delivered through the uterine incision. There was evidence of nuchal cord which was loose. Shoulders followed with ease. Three-vessel cord was noted clamped x2 and cut and the was handed off to the waiting refrigerating technician. At this point cord blood gases cord blood sample were both obtained and the placenta was manually expressed from the uterus. The uterus w as then exteriorized and noting that there were some membranes attached, uterus cleared of all clot, and debris. At this point the uterine incision was closed using 0 Monocryl suture in a running locked fashion. The corners of the incision were oversewn with 0 Monocryl suture to achieve hemostasis. There is noted to be a small hematoma at the left broad ligament which was approximately 2 cm in greatest dimension. This remained stable throughout the course of her surgery. The uterus was then returned to the abdomen abdomen irrigated with copious amounts of normal saline. The uterine incision was again inspected and found to be hemostatic. The area of concern of hematoma also stable without expansion. At this point the fascial incision was closed using 0 Vicryl suture in a running fashion subcutaneous tissue irrigated with copious amounts of normal saline and reapproximated with 3-0 Vicryl suture. The skin edge was reapproximated in a subcuticular fashion with 4-0 Monocryl suture and Steri- Strips were placed. Sterile dressing was then placed and the uterus was noted to be firm, 2 cm below the umbilicus. Blood loss was approximately 850 cc, fluids are crystalloid per anesthesia, 800 cc pathology is placenta for examination, cord blood gases, cord blood sent. Both mom and baby were taken to the center in good condition. She had a Pritchard catheter in place draining clear yellow urine.
[2021-10-21] VITALS (8 sets, daily range): BP systolic 110–135; BP diastolic 66–85; PULSE 77–102; RESP 16–20; TEMP 36.7–36.9; O2SAT 95–99
[2021-10-21] MEDS: Naloxone 0.4 MG/ML VIAL IVP ×2 (01:21→04:44)
[2021-10-21] MEDS: Normal Saline Flush 10 ML SYR IVP (01:22)
[2021-10-21 06:49] LABS: Abs Immature Grans 0.09 10^3/uL (0.0-0.06); Absolute Basophil Count 0.04 10^3/uL (0.0-0.2); Absolute Monocyte Count 1.03 10^3/uL (0.1-0.8); Basophils % 0.2; Immature Grans % 0.5; Lymphocytes % 7.1; MCH 29.6 pg (27.0-33.0); MCHC 33.6 % (32.0-36.0); MCV 88.2 fL (80-95); Monocytes % 5.3; Neutrophils % 86.9; Platelet Count 127 10^3/uL (130-400); RBC 3.04 10^6/uL (3.93-5.22); RDW-SD 44.9 fL
[2021-10-21 06:57] LABS: Absolute Lymphocyte Count 1.38 10^3/uL (1.2-3.4); Absolute Neutrophil Count 16.83 10^3/uL (1.2-6.7)
[2021-10-21 06:58] LABS: HCT 26.8 % (36.0-46.0); WBC 19.37 10^3/uL (4.4-10.8)
[2021-10-21] MEDS: Docusate Sodium 100 MG CAP PO ×2 (07:52→22:05)
[2021-10-21] MEDS: oxyCODONE 5 mg/Acetaminophen 325 mg TAB PO ×5 (07:52→22:07)
[2021-10-21] MEDS: Sertraline 50 MG TAB PO (07:52)
--- NOTE | 2021-10-21 08:08 | W.PM.OBPNV1 ---
Date of service: 10/21/21 Time of Service: 08:09 Assessment and Plan Assessment and plan (1) Status post primary low transverse section: Status: Acute Assessment and plan: Postop day 1 stable vital signs. Breast-feeding well. We will continue to support gradual ambulation and pain control. (2) Migraine with status migrainosus: Status: Acute Assessment and plan: Patient has used cyproheptadine during this . Because she is breast-feeding I recommended against using it immediately. She may have a decrease in breastmilk before her milk supply is established. If she is not comfortable with Tylenol or Tylenol and oxycodone I will consult with Dr. Kiran for suggestions regarding additional treatment options. Subjective Subjective Interval history: Postop day 1 primary for arrest of descent. Patient has been successful applying baby to breast. She tolerated NSAIDs in the past and so has not received Toradol. This morning she is fairly uncomfortable and I recommended that she have the Percocet prior to the 16-hour interval as recommended by anesthesia. She is concerned she has a slight headache this morning. Patient comments: Incisional pain and Flatus present [place] baby status: Doing well and Strong Bonding Observed [place] feeding status: Exclusively breast feeding Exam Physical Exam Vital signs: Temp Pulse Resp BP Pulse Ox 98.2 F 85 16 126/76 99 10/21/21 08:00 10/21/21 08:00 10/21/21 08:00 10/21/21 08:00 10/21/21 08:00 Constitutional Constitutional: no acute distress Respiratory Exam Respiratory Exam: Normal Cardiovascular Exam Cardiovascular Exam: Normal Abdominal Exam Abdomen: Tender (Along incision. The incision is covered with a dry sterile dressing) Fundal Exam Fundus: Below Umbilicus Rectal Exam Rectal Exam: Not Done Extremities Exam Extremity Exam: Edema (1+ nonpitting pretibial edema), Pulses Intact, Normal Capillary Refill and Warm to Touch Comment: SCDs on but not connected to machine. Back/Spine/Pelvis Exam Back Exam: Not Done Skin Exam Skin Exam: Normal Neurological Exam Neurological Exam: Normal (Patient reports slight headache but no migraine as of this time.) Psychiatric Exam Psychiatric Exam: Normal Results Hemoglobin/Hematocrit: Hgb 9.0 g/dL (11.2-15.7) L D 10/21/21 06:30 Hct 26.8 % (36.0-46.0) L D 10/21/21 06:30 Abnormal Lab Findings: Abnormal Labs 10/20/21 10/20/21 10/20/21 10:15 10:15 19:00 WBC 11.30 H RBC Hgb Hct Plt Count MPV 12.1 H Absolute Neutrophils Absolute Monocytes Anion Gap 11.5 H Alkaline Phosphatase 253 H Albumin 2.7 L Ur Tricyclics Screen Positive A 10/21/21 06:30 WBC 19.37 H D RBC 3.04 L Hgb 9.0 L D Hct 26.8 L D Plt Count 127 L MPV 12.0 H Absolute Neutrophils 16.83 H Absolute Monocytes 1.03 H Anion Gap Alkaline Phosphatase Albumin Ur Tricyclics Screen
[2021-10-22] MEDS: oxyCODONE 5 mg/Acetaminophen 325 mg TAB PO ×3 (02:05→10:38)
[2021-10-22 03:09] VITALS: BP 125/79; PULSE 78; RESP 18; TEMP 37; O2SAT 97
[2021-10-22 07:45] VITALS: BP 127/81; PULSE 96; RESP 14; TEMP 36.8; O2SAT 98
--- NOTE | 2021-10-22 09:17 | W.PM.OBPNV1 ---
Date of service: 10/22/21 Time of Service: 09:17 Assessment and Plan Assessment and plan (1) Status post primary low transverse section: Status: Acute Assessment and plan: Patient is postop day #2 status post primary low-transverse section for labor arrest. She had macrosomia. She is overall doing well. Baby is nursing without difficulty. She is anticipating discharge to home later today, or tomorrow. Circumcision will be performed today. Subjective Subjective Interval history: Patient seen in the center this morning. Overall doing well. Some incisional pain. Tired this morning due to baby who cluster fed throughout the night. Overall, doing well, may desire discharge home today. Circumcision will be done by Dr. Burleson at noon. Exam Physical Exam Vital signs: Temp Pulse Resp BP Pulse Ox 98.6 F 78 18 125/79 97 10/22/21 03:09 10/22/21 03:09 10/22/21 03:09 10/22/21 03:09 10/22/21 03:09 Constitutional Constitutional: no acute distress HEENT Exam HEENT Exam: Normal Neck Exam Neck Exam: Normal Respiratory Exam Respiratory Exam: Normal Cardiovascular Exam Cardiovascular Exam: Normal Abdominal Exam Abdomen: Tender and Other (Incision clean, dry, intact. Steri-Strips in place.) Fundal Exam Fundus: Below Umbilicus and Firm Extremities Exam Extremity Exam: Edema (2+ symmetric bilateral); negative Calf Tenderness or Warm to Touch DetailedPsychiatric Exam Psych Exam: Normal Affect, Normal Thougth Process, Cooperative, Good Insight and Good Judgement Results Hemoglobin/Hematocrit: Hgb 9.0 g/dL (11.2-15.7) L D 10/21/21 06:30 Hct 26.8 % (36.0-46.0) L D 10/21/21 06:30 Abnormal Lab Findings: Abnormal Labs 10/20/21 10/20/21 10/20/21 10:15 10:15 19:00 WBC 11.30 H RBC Hgb Hct Plt Count MPV 12.1 H Absolute Neutrophils Absolute Monocytes Anion Gap 11.5 H Alkaline Phosphatase 253 H Albumin 2.7 L Ur Tricyclics Screen Positive A 10/21/21 06:30 WBC 19.37 H D RBC 3.04 L Hgb 9.0 L D Hct 26.8 L D Plt Count 127 L MPV 12.0 H Absolute Neutrophils 16.83 H Absolute Monocytes 1.03 H Anion Gap Alkaline Phosphatase Albumin Ur Tricyclics Screen
--- NOTE | 2021-10-22 09:25 | DSE_ITS ---
Date of service: 10/22/21 Time of Service: 09:25 DS: Diagnosis Discharge Diagnosis (1) Status post primary low transverse section: Status: Acute Asessment and Plan: Patient is due to status post primary low transverse [place] section for arrest of labor. She is doing well and will be discharged home postoperative day #2 ambulating, tolerating regular diet and oral pain medication with stable vital signs. Her male will be sent twice today and is overall doing well. Discharge Plan Disposition Condition: Good Discharge Details Reason For Visit: Rule Out Term Labor Admit Date/Time: 10/21/21 08:57 Admit Provider: Leilani Hampton Attending Provider: Leilani Hampton Primary Care Provider: Tim Kim [facility] Course Hospital Course: Patient presented to the center after spontaneous rupture of membranes for meconium stained fluid and early labor. She progressed to 7 cm after number of hours without Pitocin augmentation and adequate documentation of contractions. She had received an epidural for pain control. In light of her labor arrest, she underwent primary low transverse section for a macrosomic male . She had uncomplicated postop operative course and was discharged home postoperative day #2 ambulating, tolerating regular diet and oral pain medication with stable vital signs. Home Meds and New Rx's Prescriptions: New oxycodone-acetaminophen [Percocet] 5-325 mg tablet 1 tab PO Q8H PRNQty: 14 0RF docusate sodium [Colace] 100 mg capsule 100 mg PO BID Qty: 30 0RF No Action prenat.vits,tracie,qbp-zqko-mjgtj Tablet 1 tab PO DAILY 0RF omeprazole 20 mg capsule,delayed release(DR/EC) 20 mg PO DAILY PRN0RF ondansetron 4 mg tablet,disintegrating 4 mg PO Q6H PRN0RF cyproheptadine 4 mg tablet See Rx Instructions PO QHS Qty: 360 3RF Rx Instructions: 4mg BID scheduled with an additional 4-8mg qday prn headache PO every day at bedtime; sertraline 50 mg tablet 50 mg PO DAILY 0RF Discharge Instructions Stand Alone Forms: BC Discharge Instruc Activity:: Activity as Tolerated Equipment/Supplies:: No Equipment Needed Diet:: As Tolerated OB:DS Summary Contraception Discussed Contraception Discussed: Yes Contraceptive Plan: Tubal Ligation (To be scheduled), Gender-Baby A: Male weight: 9 lb 0.27 oz Status at Discharge Functional status at discharge: independent ambulation Overall status at discharge: patient is progressing back to baseline Mental Status: mental status grossly normal Speech and Movement: speech and movement normal Mood: congruent mood Affect: normal affect Exam Physical Exam Vital signs: Temp Pulse Resp BP Pulse Ox 98.6 F 78 18 125/79 97 10/22/21 03:09 10/22/21 03:09 10/22/21 03:09 10/22/21 03:09 10/22/21 03:09 Narrative: See physical exam from progress note dated 10/22/2021 [facility] All Active Problems (Updated 10/20/21 @ 21:18 by Jerica Hernandez DO) Status post primary low transverse section (Acute) 10/20/2021. Rest of labor. M. Arrested labor (Acute) Prolonged first stage of labor, antepartum (Acute) Irregular uterine contractions (Acute) Thick meconium stained amniotic fluid (Acute) Active labor at term (Acute) Proteinuria (Acute) Elevated glucose tolerance test (Acute) Large for gestational age fetus affecting mother, antepartum, third trimester, single gestation (Acute) COVID-19 affecting in second trimester (Acute) History of penicillin allergy (Acute) Anxiety (Chronic) Family history of thyroid disease in mother (Acute) Mother had thyroidectomy as well as MGM (Acute) Migraine with status migrainosus (Acute) Idiopathic small fiber peripheral neuropathy (Acute) Leg pain (Acute) Depression with anxiety (Chronic) Medical History Acute recurrent otitis media ADHD Anxiety Bilateral leg pain Common cold Contraceptive education Depression Drug abuse, IV Ear ache Encounter for IUD removal History of anorexia nervosa History of depression History of prior with SGA Hx of varicella Idiopathic peripheral neuropathy Migraine Migraine Migraine headache with aura Opioid dependence No MAT for 5 years Panic disorder Pap smear for cervical cancer screening Pelvic pain Pelvic pain affecting PTSD (post-traumatic stress disorder) Suicidal ideation history of SI Thumb pain Tobacco use Unresolved grief Vaginal delivery (04/11/13) Vaginal discharge during , antepartum Surgical History No significant past surgical history Family History Mother Devic's syndrome Headache Sister Cancer bone marrow cancer Social History Smoking/Tobacco Use Status: Current-Occasional Smoking risk assessment performed?: Yes Alcohol Intake: former Drug use: Rarely Substance use type: marijuana Adopted: No Household members: children Housing: house Number of Children: 1 current occupation: [employer] working Pets and animals: Yes (hermit crab) Current gender identity: female What is your relationship status?: never Panel score (0-1 are the most socially isolated patients): 0 What type of physical activity do you participate in: none Seatbelt use: sometimes Do you feel safe at home: Yes Do you feel safe in your relationship?: Yes History History 2 Para 1 Hx # Term Pregnancies 1 Multiple births 0 Hx # Pregnancies 0 Ectopic pregnancies 0 AB induced 0 Hx Number of Living Children 1 AB spontaneous 0 Past Pregnancies Del. Date GA/Weeks # Outcome Route Wgt Sex Labor Lgth Anesthes ia Location Prov Complic 04/11/13 40 No Successful vaginal 5 lb 5 oz Female 14 [facility] Delivery Date: 04/11/13 Last Updated by: SHER Angel Faith DS: Data Vitals/I&O Vitals and I&O: Vital Signs Temperature 98.6 F 10/22/21 03:09 Temperature Source Tympanic 10/20/21 22:46 Pulse 78 10/22/21 03:09 Pulse Rhythm Regular 10/21/21 19:13 Respiratory Rate 18 10/22/21 03:09 Blood Pressure 125/79 10/22/21 03:09 Blood Pressure Mean 94 10/22/21 03:09 Pulse Oximetry 97 10/22/21 03:09 Oxygen Delivery Method Room Air 10/20/21 22:46 Oxygen Flow Rate 0 10/20/21 22:46 Pain Level 6 10/22/21 06:14 Comment 10/21/21 01:20 Intake & Output 10/21/21 10/21/21 10/22/21 11:59 23:59 11:59 Intake Total 3074 / 3424 350 / 3424 Output Total 1300 / 2900 1600 / 2900 Balance 1774 / 524 -1250 / 524 Intake: IV 1824 / 1824 Oral 1250 / 1600 350 / 1600 Output: Urine 1300 / 2900 1600 / 2900 Other: Urine Color Yellow Urine Appearance Clear Data Completed and Pending Labs on day of discharge: Labs from last 24 hours 10/21/21 10/20/21 06:30 10:15 Patient ABO/Rh O Negative Antibody Screen NEGATIVE Screen Negative Unit Expiration Date 08/29/2023 Product Lot # [id number]
[2021-10-22] MEDS: Docusate Sodium 100 MG CAP PO (10:38)
== END 2021-10-22 14:45 | disposition home or self-care (01) | DRG 787 ==
LOC: BCD 09:07 → OBS 13:03
PROVIDERS: Obstetrics & Gynecology; Admitting Provider Advanced Practice Midwife; PCP Internal Medicine; Visit Provider Advanced Practice Midwife
PROC: 10D00Z1 Extraction of Products of Conception, Low, Open Approach (ICD-10-PCS; CPT 59514; principal; 2021-10-20 21:00)
DX: O36.0930 Maternal care for other rhesus isoimmunization, third trimester, not applicable or unspecified (principal); O99.354 Diseases of the nervous system complicating childbirth; O71.7 Obstetric hematoma of pelvis; Z37.0 Single live birth; Z3A.38 38 weeks gestation of pregnancy; O99.344 Other mental disorders complicating childbirth; F41.8 Other specified anxiety disorders; O99.334 Smoking (tobacco) complicating childbirth; F17.290 Nicotine dependence, other tobacco product, uncomplicated; G43.909 Migraine, unspecified, not intractable, without status migrainosus; F43.10 Post-traumatic stress disorder, unspecified; G60.8 Other hereditary and idiopathic neuropathies; Z86.16 Personal history of COVID-19; O62.1 Secondary uterine inertia; O77.0 Labor and delivery complicated by meconium in amniotic fluid; O36.63X0 Maternal care for excessive fetal growth, third trimester, not applicable or unspecified; O63.0 Prolonged first stage (of labor)
CPT/HCPCS: 59514; 36415; 80053; 80307; 82803; 84112; 85027; 85461; 86850; 86900; 86901; 87635; 90384; 85025; 88307; G0378; J0456; J2310; J2370; J2405; J2790; J3010

== ENCOUNTER 2022-01-07 03:06 | Outpatient (CLI) | payer MEDICAID, SELFPAY ==
[2022-01-07 09:33] LABS: Source Nasal/Nares
[2022-01-07 13:58] LABS: COVID-19 PCR Negative (Negative)
== END 2022-01-07 03:07 | disposition home or self-care (01) ==
LOC: LBO 03:07
PROVIDERS: PCP Internal Medicine; Visit Provider Obstetrics & Gynecology
DX: Z30.2 Encounter for sterilization (principal); Z20.822 Contact with and (suspected) exposure to COVID-19; Z01.818 Encounter for other preprocedural examination; Z01.812 Encounter for preprocedural laboratory examination
CPT/HCPCS: 36415; 86850; 86900; 86901; 87635; 86870

== ENCOUNTER 2022-01-07 03:07 | Outpatient (CLI) | payer MEDICAID, SELFPAY | END 2022-01-07 03:08 | disposition home or self-care (01) | LOC: LBO 03:07 | PROVIDERS: PCP Internal Medicine; Visit Provider Obstetrics & Gynecology ==

== ENCOUNTER 2022-01-07 09:42 | Outpatient (REF) | payer MEDICAID, SELFPAY | END 2022-01-07 09:43 | disposition home or self-care (01) | LOC: LBN 09:42 | PROVIDERS: PCP Internal Medicine; Visit Provider Obstetrics & Gynecology ==

== ENCOUNTER 2022-01-08 08:31 | Day surgery (SDC) | payer MEDICAID, SELFPAY ==
--- NOTE | 2022-01-07 11:34 | ANES.PREOP_ITS ---
General Info Date of Service Date Performed: 01/08/22 Height: 5 ft 2 in Weight: 71.688 kg Body Mass Index (BMI): 28.9 Surgical Procedure: Operation Date: 01/08/22 10:55 Proposed Procedure Side Surgeon p Salpingectomy Laparoscopic Bilateral Griselda Alonso MD Meds Allergies and Home Medications Allergies Allergy/AdvReac Type Severity Reaction Status Date / Time ibuprofen Allergy Severe Skin Rash Verified 01/08/22 08:49 paroxetine [From Paxil] Allergy Severe Verified 01/08/22 08:51 penicillin G Allergy Severe Anaphylaxis Verified 01/08/22 08:51 codeine Allergy Intermediate HIVES Verified 01/08/22 08:51 amphetamine [From Adderall] Allergy Unknown Verified 01/08/22 08:51 dextroamphetamine Allergy Unknown Verified 01/08/22 08:51 [From Adderall] Home Medication Medication Instructions Recorded prenat.vits,tracie,smg-rkjt-ayugd 1 tab PO DAILY 03/20/21 omeprazole 20 mg capsule,delayed 20 mg PO DAILY PRN 05/02/21 release sertraline 50 mg tablet 50 mg PO DAILY 06/24/21 rizatriptan 10 mg tablet See Rx Instructions PO .COMPLEX 11/11/21 #12 tabs topiramate 100 mg tablet 100 mg PO QHS #90 tabs 12/11/21 oxycodone 5 mg tablet,oral ONLY 5 mg PO Q8H PRN pain #3 tabs 01/07/22 (not feeding tubes) PFSH Active Problems Active Problems: Problem Status Onset Code Depression with anxiety F41.8 Leg pain M79.606 Idiopathic small fiber peripheral neuropathy G60.9 Medical History Medical History Acute recurrent otitis media ADHD Family history of thyroid disease in mother Mother had thyroidectomy as well as MGM Fibromyalgia History of anorexia nervosa History of penicillin allergy History of prior with SGA Hx of varicella Idiopathic peripheral neuropathy Migraine with status migrainosus 10/22/21. prophylactic medication changed to Propranalol 20mg BID. Pt will f/u with Dr. Nunez Opioid dependence No MAT for 6 years PTSD (post-traumatic stress disorder) Pt. states nothing is a potential trigger Sterilization consult Suicidal ideation history of SI Tobacco use Surgical History Surgical History No significant past surgical history Status post primary low transverse section 10/20/2021. Arrest of labor. Tobacco Smoking/Tobacco Use Status: Current-Occasional Tobacco Type: e-cigarettes Alcohol Alcohol Intake: current Alcohol intake frequency: a few times a month Substance Use Substance use: Rarely Substance use type: marijuana Prental History History 2 Para 2 Hx # Term Pregnancies 2 Multiple births 0 Hx # Pregnancies 0 Ectopic pregnancies 0 AB induced 0 Hx Number of Living Children 2 AB spontaneous 0 Past Pregnancies Del. Date GA/Weeks # Preg Succ Route Wgt Sex Labor Lgth Anesth esia Location Prov Complic 04/11/13 40 No vaginal 2409.709 g Female 14 [facility] 10/20/21 39 No 4082.331 g Male Ganesh Hernandez Delivery Date: 04/11/13 Last Updated by: Leilani Putnam CNM [facility] [place] [place] Delivery Date: 10/20/21 Last Updated by: ARI Hunter Vital Signs and Lab Results Vital Signs Most Recent Vital Signs in EMR: Temp Pulse Resp BP Pulse Ox 36.4 C L 62 17 112/73 98 01/08/22 08:54 01/08/22 08:54 01/08/22 08:54 01/08/22 08:54 01/08/22 08:54 Lab Results Blood Type / Crossmatch: Patient ABO/Rh O Negative 01/07/22 Antibody Screen POSITIVE 01/07/22 Complete Blood Count: No Data to Display Complete Metabolic Panel: No Data to Display Liver Function Panel: No Data to Display Coagulation Panel: No Data to Display Cardiac Panel: No Data to Display Arterial Blood Gas: No Data to Display Venous Blood Gas: No Data to Display Pancreas Panel: No Data to Display Thyroid Panel: No Data to Display Infectious Disease: Coronavirus (COVID-19)(PCR) Negative (Negative) 01/07/22 09:12 Coronavirus 2019 Source Nasal/Nares 01/07/22 09:12 Blood Cultures: No Data to Display Toxicology Panel: No Data to Display Panel: No Data to Display Anesthesia Assessment and Plan Anesthesia History Personal History: No History of Anesthesia Complications Family History: No Family History of Anesthesia Complications Exercise Tolerance Exercise Tolerance: Metabolic Equivalents>4 Cardiac & Pulmonary Exam Cardiac Exam: Normal S1/S2 Heart Sounds Pulmonary Exam: Clear Bilateral Breath Sounds Implantable Cardiac Device Does patient have a Pacemaker or an ICD?: No Airway Exam Known Difficult Airway: No Mallampati Class: 2 Mouth Opening: Narrow (< 3cm) Thyromental Distance: Greater than 3 cm Neck Range of Motion: Full ROM Neck Circumference: Normal Teeth Condition: Normal Dentition ASA Classification ASA Score: ASA 2 Emergency Case?: No NPO Status NPO Status: NPO Clears >2 hours, Solids >8 hours Status Status: Negative HCG Anesthesia Plan Resuscitation Status: Full Code Anesthesia Technique: General Anesthesia Airway Planned: Endotracheal Tube Monitors Used: Standard Monitors Preoperative Comments:: 31 yo for lap salping. Sig PMHx: IVDA, migraine, anxiety/depression, fibromyalgia, occ nicotine, denies major health history change.
[2022-01-08] VITALS (9 sets, daily range): BP systolic 91–112; BP diastolic 45–73; PULSE 43–62; RESP 13–18; TEMP 36.1–36.5; O2SAT 98–100; BMI 28.9
[2022-01-08] MEDS: Lactated Ringers 1,000 ML 125 ML IV (09:08)
--- NOTE | 2022-01-08 11:40 | FALL_PTH ---
PATIENT: Radha Schmidt LOC: [facility] U#:[id number] AGE/SX: 31/F ROOM: RE01/08/[address]: Griselda Alonso MD : 1990 BED: DIS: 01/08/2022 SPEC #: [id number] RECD: 01/08/22 13:36 STATUS: HAILE REShahab #: [id number] AAKASH: 01/08/22 11:[address]: Griselda Alonso DEPT: Surgical Specimen RECD BY: Catrina Perez ENTERED: 01/08/22 13:38 SP TYPE: Fall OTHR DR: Tim Kim Tissues: 1 - FALLOPIAN TUBE (STERILIZATION) 2 - FALLOPIAN TUBE (STERILIZATION) Procedures: GROSS AND MICRO LEVEL 2 Comments: [id number]
[2022-01-08] MEDS: Bupivacaine 0.25% Pres-Free 10 ML VIAL (11:55)
--- NOTE | 2022-01-08 12:06 | W.PM.DSUDISC ---
Discharge Plan Disposition Patient Disposition: HOME Condition: Good Discharge Details Reason For Visit: sterilization Attending Provider: Griselda Alonso Primary Care Provider: Tim Kim Home Meds and New Rx's Prescriptions: No Action prenat.vits,tracie,edo-bmos-ffdiy Tablet 1 tab PO DAILY topiramate 100 mg tablet 100 mg PO QHS Qty: 90 3RF omeprazole 20 mg capsule,delayed release(DR/EC) 20 mg PO DAILY PRN sertraline 50 mg tablet 50 mg PO DAILY rizatriptan 10 mg tablet See Rx Instructions PO .COMPLEX Qty: 12 5RF Rx Instructions: take 1 tab at onset of headache; if no relief may repeat 1 tab after at least 2 hrs; max = 3 tabs/24 hr PO oxycodone 5 mg tablet, oral only 5 mg PO Q8H MDD 3 PRN (Reason: pain) Qty: 3 0RF Discharge Instructions Activity:: No lifting >20lbs Remove Dressings/Wound Care:: 24 hours Shower/Bathe:: 24 hours Diet:: As Tolerated Discharge Orders Discharge Orders: Discharge Order (Routine); Ordered 01/08/22 Ordered By: Griselda Alonso DS: Diagnosis Discharge Diagnosis (1) Encounter for sterilization: Status: Acute Asessment and Plan: Underwent routine Lap BTL without complication.
--- NOTE | 2022-01-08 12:08 | W.PM.OP ---
Date of service: 01/08/22 Time of Service: 11:00 Operative Note Operative Note PRE-OP DIAGNOSIS: desires permanent sterilization POST-OP DIAGNOSIS: same PROCEDURE: Laparoscopic bilateral salpingectomy SURGEON: Griselda Alonso ASSISTING SURGEON: Urvashi Burleson Refer to Anesthesia Record ESTIMATED BLOOD LOSS: 0 COMPLICATIONS: None Patient was transported to: PACU Patient's condition: stable Indications: P2 who desires permanent sterilization. Findings: Normal appearing uterus, ovaries and tubes. Adhesion to anterior abdominal wall not involving pelvic structures. Procedure Description: After informed consent was signed the patient was taken to the operating room and given general anesthesia.? SCDs were placed on her legs.? She was prepped and draped in the dorsal lithotomy position in the [facility].? She had drained her body just prior to the procedure. A speculum was placed into the vagina to expose the cervix and a hulka manipulator was placed into the cervix. The speculum was removed. Gloves were changed and attention was turned to the abdomen. The infraumbilical fold was grasped and injected with 0.25% marcaine. A 5mm incision was made in the infraumbilical fold with the scalpel. A hemostat was used to bluntly dissect the subcuticular layers. The visiport was then assembled and used to enter the abdomen under direct visualization. Once entrance to the abdominal cavity was confirmed the CO2 was turned on and the abdomen was insufflated. Two lateral 5mm ports were then placed under direct visualization. There was an omental adhesion to the anterior abdominal wall between the umbilicus and the right lateral port. This was left in place. The left tube was identified and followed to the fimbriated end. The tube was grasped and elevated and the mesosalpinx was clamped, cauterized and cut with the ligasure device. The was continued along the length of the tube. The proximal end of the tube was then transected with the ligasure. Good hemostasis was noted. The right tube was then identified and followed to the fimbriated end. The tube was grasped and elevated and the mesosalpinx was clamped, cauterized and cut with the ligasure device. The was continued along the length of the tube. The proximal end of the tube was then transected with the ligasure. Good hemostasis was noted on both sides. The ports were removed. The gas was released from the abdomen. The skin incisions were then closed with 4-0 vicryl. Mastisol and steristrips were placed. The manipulator was removed. The patient was placed back into the supine position.? She was moved to the stretcher and taken to the recovery room in stable condition.
--- NOTE | 2022-01-08 12:48 | W.ANESPOSTOP ---
Postoperative Evaluation Date, Time and Location Date Performed: 01/08/22 Time Performed: 12:48 Patient Location: PACU Vital Signs Most Recent Imported Vital Signs: Most Recent Vital Signs Temp Pulse Resp BP Pulse Ox 36.4 C L 48 L 18 91/47 L 98 01/08/22 12:45 01/08/22 12:45 01/08/22 12:45 01/08/22 12:45 01/08/22 12:45 Pain Score Most Recent Pain Score: Most Recent Pain Score Pain Level 0 01/08/22 12:45 Assessment Mental Status: Awake (Alert & Oriented to Patient Baseline) Airway and Respiratory Function: Patent airway with normal (patient baseline) respiratory exam Cardiovascular Function: Hemodynamically Stable Hydration Status: Adequately Hydrated Nausea & Vomiting: No Nausea or Vomiting Pain: Pain is tolerable per patient (toradol discussed with pt and ordered. ) Peripheral Nerve Block: Patient did not receive a nerve block
[2022-01-08] MEDS: Ketorolac 15 MG/ML VIAL IVP (12:51)
== END 2022-01-08 13:58 | disposition home or self-care (01) ==
PROVIDERS: PCP Internal Medicine; Visit Provider Obstetrics & Gynecology
PROC: (CPT 58661; principal; 2022-01-08 10:45)
DX: Z30.2 Encounter for sterilization (principal); G60.8 Other hereditary and idiopathic neuropathies; F90.9 Attention-deficit hyperactivity disorder, unspecified type; M79.7 Fibromyalgia
CPT/HCPCS: 58661; 81025; 88302; J0131; J1100; J1885; J2405; J2704; J3475

== ENCOUNTER 2022-04-20 09:22 | Emergency (ER) | payer MEDICAID, SELFPAY ==
[2022-04-20 09:26] VITALS: BP 101/46; PULSE 95; RESP 18; TEMP 36.3; O2SAT 100
--- NOTE | 2022-04-20 09:46 | ED.GENADUL_ITS ---
Discharge Plan Disposition Patient Disposition: HOME Condition: Stable Discharge Details Clinical Impression: COVID Primary Care Provider: Tim Kim ED Provider: Patrick Swain Home Meds and New Rx's Prescriptions: Continued topiramate 100 mg tablet 100 mg PO QHS Qty: 90 3RF lamotrigine 100 mg tablet 50 mg PO DAILY sertraline 50 mg tablet 50 mg PO DAILY Emgality Pen 120 mg/mL pen injector 120 mg subcut QMONTH Qty: 1 11RF rizatriptan 10 mg tablet 10 mg PO PRN PRN Rx Instructions: take 1 tab at onset of headache; if no relief may repeat 1 tab after at least 2 hrs; max = 3 tabs/24 hr PO Discharge Instructions Instructions: COVID-19 (Coronavirus Disease 2019) (ED) Additional Instructions: Paxlovid as directed, while taking this medication I have recommended decreasing your sertraline dose in half. Rest, plenty of fluids to avoid dehydration, djhe-[id number] medications as directed for symptomatic control. Please watch for new or worsening symptoms and return to the ER for any concerns Discharge Data Discharge Date/Time-TO BE ENTERED AT DEPARTURE: 04/20/22 10:52 Medical Decision Making Patient 31-year-old female with URI-like symptoms over the past few days, son at home with COVID, patient tested positive today. She also reports a sore throat and concerned of strep throat. Likely COVID in nature but will obtain rapid Rapid strep negative Will provide 10 p.o. Decadron She appears well, nontoxic, afebrile, O2 sat 100% on room air, no clear indication for chest x-ray. Given her positive for COVID contact at home and a positive test, I see very little indication to repeat testing. I discussed the case with our pharmacy team, they recommend decreasing her sertraline dose while taking Paxlovid and providing the full dose, no need to go with the renal dosing. First dose given here. Standard discharge and return precautions were provided. Patient understands, is agreeable to this plan, and has no additional questions or concerns upon discharge. This documentation was generated using wrenchgu[employer] mobileation system, please disregard any oddities of phrase or misspellings. Medical Records Medical records reviewed: Yes I reviewed the patient's medical records. Lab Data Lab results reviewed: Yes I reviewed the patient's lab results. Labs: 10/16/22 09:45 Pharynx Group A Streptococcus Culture - Pending HPI General Mode of arrival: ambulatory . Date/Time Provider Initiated Documentation: 04/20/22 09:34 . Limitations to Documentation: no limitations . Information obtained by: patient . HPI Narrative: 31-year-old female who vapes daily reports her son that tested positive for COVID last week, she developed URI-like symptoms over the past several days and she 2 tested positive for COVID at home. Reports subjective fever, dry cough, sore throat. Has not taken any udqf-aav-[id number] medications for her symptoms. Denies headache, difficulty speaking or swallowing, chest pain, pain or swelling in her calves. Related Data Home Medications Medication Instructions Recorded Confirmed sertraline 50 mg tablet 50 mg PO DAILY 06/24/21 04/20/22 topiramate 100 mg tablet 100 mg PO QHS #90 tabs 12/11/21 04/20/22 galcanezumab-gnlm 120 mg/mL 120 mg subcut QMONTH #1 mL 03/18/22 04/20/22 subcutaneous pen injector (Emgality Pen) lamotrigine 100 mg tablet 50 mg PO DAILY 03/31/22 04/20/22 rizatriptan 10 mg tablet 10 mg PO PRN PRN 04/20/22 04/20/22 Previous Rx's Medication Instructions Recorded topiramate 100 mg tablet 100 mg PO QHS #90 tabs 12/11/21 galcanezumab-gnlm 120 mg/mL 120 mg subcut QMONTH #1 mL 03/18/22 subcutaneous pen injector (Emgality Pen) Allergies Allergy/AdvReac Type Severity Reaction Status Date / Time ibuprofen Allergy Severe Skin Rash Verified 03/31/22 08:21 paroxetine [From Paxil] Allergy Severe throat Verified 04/20/22 10:04 swells penicillin G Allergy Severe Anaphylaxis Verified 03/31/22 08:21 codeine Allergy Intermediate HIVES Verified 03/31/22 08:21 amphetamine [From Adderall] AdvReac Unknown Pt states Verified 04/20/22 10:04 it makes her very violent dextroamphetamine AdvReac Unknown Pt states Verified 04/20/22 10:04 [From Adderall] it makes her very violent General Stated Complaint: RespSymp FRITZ: 4 Review of Systems Constitutional Constitutional: Reports fever(s) ENT Ears, Nose, Mouth, and Throat: Reports sore throat Cardiovascular Cardiovascular: Denies chest pain and Denies dyspnea Respiratory Respiratory: Reports cough and Denies dyspnea Gastrointestinal Gastrointestinal: Denies abdominal pain, Denies nausea and Denies vomiting Integumentary/Breasts Skin/Breast: Denies rash PFSH All Active Problems COVID (Acute) Migraine headache without aura (Acute) Migraine headache with aura (Acute) Migraine with status migrainosus (Acute) 10/22/21. prophylactic medication changed to Propranalol 20mg BID. Pt will f/u with Dr. Nunez Encounter for sterilization (Acute) Depression with anxiety (Chronic) Leg pain (Acute) Idiopathic small fiber peripheral neuropathy (Acute) Medical History Acute recurrent otitis media ADHD Family history of thyroid disease in mother Mother had thyroidectomy as well as MGM Fibromyalgia History of anorexia nervosa History of penicillin allergy History of prior with SGA Hx of varicella Idiopathic peripheral neuropathy Opioid dependence No MAT for 6 years PTSD (post-traumatic stress disorder) Pt. states nothing is a potential trigger Sterilization consult Suicidal ideation history of SI Tobacco use Surgical History No significant past surgical history Status post primary low transverse section 10/20/2021. Arrest of labor. Family History Mother Devic's syndrome Headache Sister Cancer bone marrow cancer Social History Smoking/Tobacco Use Status: Current-Occasional Tobacco Type: e-cigarettes Smoking risk assessment performed?: Yes Alcohol Intake: current Alcohol Intake frequency: a few times a month Alcohol type: beer Drug use: Rarely Substance use type: marijuana Details: last time smoked over a year per pt. Adopted: No Household members: children Housing: house Number of Children: 2 current occupation: [employer] working Pets and animals: Yes (hermit crab) Current gender identity: female What is your relationship status?: never Panel score (0-1 are the most socially isolated patients): 0 What type of physical activity do you participate in: none Seatbelt use: sometimes Do you feel safe at home: Yes Do you feel safe in your relationship?: Yes History History 2 Para 2 Hx # Term Pregnancies 2 Multiple births 0 Hx # Pregnancies 0 Ectopic pregnancies 0 AB induced 0 Hx Number of Living Children 2 AB spontaneous 0 Past Pregnancies Del. Date GA/Weeks # Preg Succ Route Wgt Sex Labor Lgth Anesth esia Location [facility] 04/11/13 40 No vaginal 2409.709 g Female 14 regional Anea 10/20/21 39 No 4082.331 g Male Ganesh Hernandez Delivery Date: 04/11/13 Last Updated by: Leilani Putnam CNM [facility] Rachelle Delivery Date: 10/20/21 Last Updated by: ARI Hunter Exam Const General: cooperative, healthy appearing, comfortable and no acute distress Orientation: alert and awake [facility] Head: normal to inspection, normocephalic and atraumatic Ears: TM's normal bilaterally, TM normal on the right and EAC's normal General nose exam: nasal discharge clear Mouth: moist mucous membranes Throat: posterior oropharynx abnormal erythema Eyes General: appearance normal, both eyes and all related structures Conjunctivae: conjunctivae normal Neck Neck: normal visual inspection, full ROM, no lymphadenopathy, no meningeal signs, trachea midline, supple and nontender Resp Effort & Inspection: normal respiratory effort, able to speak in complete sentences and cough Quality of cough: dry Auscultation: clear to auscultation bilaterally Cardio Rate: regular rate Rhythm: regular rhythm GI Palpation: soft and nontender Skin General skin exam: no rashes or lesions noted Neuro General: patient alert, patient awake, moves all extremities and no focal motor deficits Sensory Exam: no sensory deficits noted Psych Appearance: grossly normal Mental Status: mental status grossly normal Course Vital Signs Vital signs: Vital Signs Temperature 36.3 C L 04/20/22 09:26 Pulse 95 H 04/20/22 09:26 Respiratory Rate 18 04/20/22 09:26 Blood Pressure 101/46 L 04/20/22 09:26 Pulse Oximetry 100 04/20/22 09:26 Temperature 36.3 C L 04/20/22 09:26 Temperature Source Tympanic 04/20/22 09:26 Pulse 95 H 04/20/22 09:26 Respiratory Rate 18 04/20/22 09:26 Respiratory Effort 04/20/22 09:29 Respiratory Depth Normal 04/20/22 09:29 Blood Pressure 101/46 L 04/20/22 09:26 Blood Pressure Position Supine 04/20/22 09:26 Pulse Oximetry 100 04/20/22 09:26 Oxygen Delivery Method Room Air 04/20/22 09:26 Oxygen Flow Rate 0 04/20/22 09:26 Pain Level 6 04/20/22 09:26
[2022-04-20] MEDS: Dexamethasone 4 MG TAB 10 MG PO (10:04)
== END 2022-04-20 10:52 | disposition home or self-care (01) ==
PROVIDERS: Emergency Provider Physician Assistant; PCP Internal Medicine
DX: U07.1 COVID-19 (principal); F90.9 Attention-deficit hyperactivity disorder, unspecified type; F17.290 Nicotine dependence, other tobacco product, uncomplicated
CPT/HCPCS: 87880; 99283; 87081; 99284; J8540

== ENCOUNTER 2022-06-13 16:30 | Emergency (ER) | payer MEDICAID, SELFPAY ==
[2022-06-13] VITALS (12 sets, daily range): BP systolic 80–127; BP diastolic 60–70; PULSE 61–82; RESP 15–20; TEMP 36.5; O2SAT 98–100
--- NOTE | 2022-06-13 16:42 | ED.GENADUL_ITS ---
Discharge Plan Disposition Patient Disposition: Home Condition: Improving Discharge Details Clinical Impression: Allergic reaction Primary Care Provider: Tim Kim ED Provider: Patrick Swain Home Meds and New Rx's Prescriptions: New prednisone 20 mg tablet 60 mg PO DAILY 5 Days Qty: 15 0RF Continued topiramate 100 mg tablet 100 mg PO QHS Qty: 90 3RF lamotrigine 100 mg tablet 100 mg PO DAILY Emgality Pen 120 mg/mL pen injector 120 mg subcut QMONTH Qty: 3 3RF rizatriptan 10 mg tablet 10 mg PO PRN PRN Rx Instructions: take 1 tab at onset of headache; if no relief may repeat 1 tab after at least 2 hrs; max = 3 tabs/24 hr PO Viibryd 10 mg (7)- 20 mg (23) tablets,dose pack 1 dose pk PO DIRECTED Label Comments: TAKE ONE BY MOUTH EVERY DAY WITH FOOD Discharge Instructions Instructions: General Allergic Reaction (ED) Additional Instructions: Prednisone as directed. Eoqh-ihy-ofnmywm Benadryl and Pepcid as directed while you are taking the prednisone. Please watch for new or worsening symptoms and return to the ER for any concerns. Lastly, please contact your primary care office first thing Thursday morning to make them aware of your ER visit and need for outpatient reevaluation. Referral to outpatient anesthesiology crna may be indicated for further evaluation of your symptoms. Medical Decision Making 31-year-old female presents for what appears to be an allergic reaction that began about 35 minutes ago, no obvious known exposures. Plan to obtain IV access, provide famotidine, Benadryl, Solu-Medrol, normal saline, and observe closely. At this time I see no signs of respiratory distress, angioedema. Patient is speaking in full sentences, heart rate is in the 80s, lungs are clear to auscultation, O2 sats in the high 90s on room air. I see no clear indication to initiate epinephrine but will watch closely. Patient was reassessed multiple times. Each time she reports her symptoms are improving. She is no longer speaking with a muffled voice. No evidence of decompensation. She is actually reporting feeling near baseline and requesting discharge. I have explained to her that I would like to observe her longer, p.o. challenge her, etc. She is agreeable Observed in the ER for over 2 hours. Able to tolerate p.o. intake without difficulty. She reports that she believes her symptoms have essentially resolved and she is back to baseline. Patient reports that her voice is now back to baseline. I will provide an additional 5 days of burst of steroids and she will take [id number] Benadryl and Pepcid. Patient is speaking in full sentences, airway is patent, tolerating p.o., no evidence of respiratory compromise. I never did appreciate any obvious tongue swelling, lip swelling, angioedema, etc. Discussed the importance of returning immediately for new or evolving symptoms, otherwise contacting her PCP on Thursday to discuss her ER visit and potential need for outpatient anesthesiology crna referral. Standard discharge and return precautions were provided. Patient understands, is agreeable to this plan, and has no additional questions or concerns upon discharge. This documentation was generated using [employer] system, please disregard any oddities of phrase or misspellings. Medical Records Medical records reviewed: Yes I reviewed the patient's medical records. Sign Out No HPI General Mode of arrival: ambulatory . Date/Time Provider Initiated Documentation: 06/13/22 16:31 . Limitations to Documentation: no limitations . Information obtained by: patient . HPI Narrative: This is a 31-year-old female with a past medical history that includes anxiety, depression, hypertension, fibromyalgia, presenting to the ER for evaluation of what she describes as a potential allergic reaction, feels as though her mouth is tingling and slightly swollen, difficult to swallow but no difficulty breathing. Patient states that she had a small mild dry cough earlier today and thought nothing of it. Otherwise felt well, no other signs of illness. She states while driving approximately 35 minutes ago her symptoms began. Denies any obvious known exposure. She denies any throat pain, lip pain, shortness of breath, wheezing, skin rash. Patient states her mouth feels swollen but she knows that her tongue is a normal size. Related Data Home Medications Medication Instructions Recorded Confirmed topiramate 100 mg tablet 100 mg PO QHS #90 tabs 12/11/21 06/13/22 lamotrigine 100 mg tablet 100 mg PO DAILY 03/31/22 06/13/22 rizatriptan 10 mg tablet 10 mg PO PRN PRN 04/20/22 06/13/22 galcanezumab-gnlm 120 mg/mL 120 mg subcut QMONTH #3 mL 04/28/22 06/13/22 subcutaneous pen injector (Emgality Pen) prednisone 20 mg tablet 60 mg PO DAILY 5 days #15 tabs 06/13/22 vilazodone 10 mg (7)-20 mg (23) 1 dose pk PO DIRECTED 06/13/22 06/13/22 tablets in a titration pack (Viibryd) Previous Rx's Medication Instructions Recorded topiramate 100 mg tablet 100 mg PO QHS #90 tabs 12/11/21 galcanezumab-gnlm 120 mg/mL 120 mg subcut QMONTH #3 mL 04/28/22 subcutaneous pen injector (Emgality Pen) prednisone 20 mg tablet 60 mg PO DAILY 5 days #15 tabs 06/13/22 Allergies Allergy/AdvReac Type Severity Reaction Status Date / Time ibuprofen Allergy Severe Skin Rash Verified 06/13/22 17:14 paroxetine [From Paxil] Allergy Severe throat Verified 06/13/22 17:14 swells penicillin G Allergy Severe Anaphylaxis Verified 06/13/22 17:14 codeine Allergy Intermediate HIVES Verified 06/13/22 17:14 amphetamine [From Adderall] AdvReac Unknown Pt states Verified 06/13/22 17:14 it makes her very violent dextroamphetamine AdvReac Unknown Pt states Verified 06/13/22 17:14 [From Adderall] it makes her very violent General FRITZ: 4 Review of Systems Constitutional Constitutional: Denies fever(s) Eyes Eyes: Denies itchy eyes ENT Ears, Nose, Mouth, and Throat: Denies lip swelling, Denies sore throat, Reports throat swelling and Reports tongue swelling Cardiovascular Cardiovascular: Denies chest pain and Denies dyspnea Respiratory Respiratory: Reports cough, Denies dyspnea and Denies wheezing Gastrointestinal Gastrointestinal: Denies abdominal pain, Denies nausea and Denies vomiting Integumentary/Breasts Skin/Breast: Denies rash Allergic/Immunologic Allergic/Immunologic: Denies urticaria, Denies itchy eyes, Denies lip swelling, Reports throat swelling, Reports tongue swelling and Denies wheezing PFSH All Active Problems (Updated 06/13/22 @ 18:31 by LIZ Wilson) COVID (Acute) Allergic reaction (Acute) Migraine headache without aura (Acute) Migraine headache with aura (Acute) Migraine with status migrainosus (Acute) 10/22/21. prophylactic medication changed to Propranalol 20mg BID. Pt will f/u with Dr. Nunez Encounter for sterilization (Acute) Depression with anxiety (Chronic) Leg pain (Acute) Idiopathic small fiber peripheral neuropathy (Acute) Medical History Acute recurrent otitis media ADHD Family history of thyroid disease in mother Mother had thyroidectomy as well as MGM Fibromyalgia History of anorexia nervosa History of penicillin allergy History of prior with SGA Hx of varicella Idiopathic peripheral neuropathy Opioid dependence No MAT for 6 years PTSD (post-traumatic stress disorder) Pt. states nothing is a potential trigger Sterilization consult Suicidal ideation history of SI Tobacco use Surgical History No significant past surgical history Status post primary low transverse section 10/20/2021. Arrest of labor. Family History Mother Devic's syndrome Headache Sister Cancer bone marrow cancer Social History Smoking/Tobacco Use Status: Current-Occasional Tobacco Type: e-cigarettes Smoking risk assessment performed?: Yes Alcohol Intake: current Alcohol Intake frequency: a few times a month Alcohol type: beer Drug use: Rarely Substance use type: marijuana Details: last time smoked over a year per pt. Adopted: No Household members: children Housing: house Number of Children: 2 current occupation: [employer] working Pets and animals: Yes (hermit crab) Current gender identity: female What is your relationship status?: never Panel score (0-1 are the most socially isolated patients): 0 What type of physical activity do you participate in: none Seatbelt use: sometimes Do you feel safe at home: Yes Do you feel safe in your relationship?: Yes History History 2 Para 2 Hx # Term Pregnancies 2 Multiple births 0 Hx # Pregnancies 0 Ectopic pregnancies 0 AB induced 0 Hx Number of Living Children 2 AB spontaneous 0 Past Pregnancies Del. Date GA/Weeks # Preg Succ Route Wgt Sex Labor Lgth Anesth esia Location Prov Complic 04/11/13 40 No vaginal 2409.709 g Female 14 regional [facility] 10/20/21 39 No 4082.331 g Male Ganesh Hernandez Delivery Date: 04/11/13 Last Updated by: Leilani Putnam CNM [facility], Rachelle Delivery Date: 10/20/21 Last Updated by: ARI Hunter Exam Const General: cooperative, healthy appearing, comfortable and no acute distress Orientation: alert, awake and oriented x3 HENMT Head: normal to inspection, normocephalic and atraumatic General nose exam: external nose normal Face and sinus: normal facial exam Mouth: oral mucosae normal, lip normal, tongue normal and moist mucous membranes Teeth and gingiva: dentition normal Throat: posterior oropharynx normal Other: Patient does speak with a slightly hoarse-muffled voice. No signs of trismus Eyes General: appearance normal, both eyes and all related structures Conjunctivae: conjunctivae normal Neck Neck: normal visual inspection, full ROM, no lymphadenopathy, no meningeal signs, trachea midline, supple and nontender Resp Effort & Inspection: normal respiratory effort and able to speak in complete sentences Auscultation: clear to auscultation bilaterally Cardio Rate: regular rate Rhythm: regular rhythm Skin General skin exam: no rashes or lesions noted Neuro General: patient alert, patient awake, moves all extremities and no focal motor deficits Sensory Exam: no sensory deficits noted Psych Appearance: grossly normal Mental Status: mental status grossly normal
[2022-06-13] MEDS: Normal Saline 1,000 ML 1000 ML IV (17:00)
[2022-06-13] MEDS: diphenhydrAMINE 50 MG/ML VIAL IVP (17:06)
[2022-06-13] MEDS: methylPREDNISolone SUCC 125 MG VIAL IVP (17:07)
[2022-06-13] MEDS: Famotidine 20 MG/2 ML VIAL IVP (17:09)
--- NOTE | 2022-06-13 17:52 | NUR.NOTE ---
swallowing challenge with zainab vanessa and kai emery Nursing Note:
== END 2022-06-13 18:42 | disposition home or self-care (01) ==
PROVIDERS: Emergency Provider Physician Assistant; PCP Internal Medicine
DX: T78.49XA Other allergy, initial encounter (principal); X58.XXXA Exposure to other specified factors, initial encounter
CPT/HCPCS: 96361; 96374; 96375; 99284; 99283; J1200; J2930

== ENCOUNTER 2023-01-01 11:29 | Outpatient (CLI) | payer MEDICAID, SELFPAY ==
--- NOTE | 2023-01-01 11:34 | DI.RAD_ITS ---
Exam(s) XR WRIST LT COMPLETE EXAM: XR WRIST LT COMPLETE CLINICAL HISTORY: Lt wrist pain, M25.532, s/p fall. evaluate for fx. TECHNIQUE: 2D digital imaging was performed. Three views. COMPARISON: No exams were available for comparison FINDINGS: BONES: No acute fracture is present. No bony destructive lesion is seen. JOINTS: The carpal bones are normally aligned. SOFT TISSUE: Normal. IMPRESSION: Unremarkable radiographs of the left wrist. DATA REPOSITORY: RADIATION DOSE DELIVERED:
== END 2023-01-01 11:49 ==
LOC: DI 11:29
PROVIDERS: PCP Internal Medicine; Visit Provider Nurse Practitioner Family
DX: M25.532 Pain in left wrist (principal); W19.XXXA Unspecified fall, initial encounter
CPT/HCPCS: 73110

== ENCOUNTER 2023-05-09 21:42 | Emergency (ER) | payer MEDICAID, SELFPAY ==
[2023-05-09 21:59] VITALS: BP 111/76; PULSE 107; RESP 18; TEMP 36.4; O2SAT 97
--- NOTE | 2023-05-09 21:59 | ED.GENADUL_ITS ---
Discharge Plan Disposition Patient Disposition: Home Discharge Details Clinical Impression: Acute sore throat, URI, acute Primary Care Provider: Tim Kim ED Provider: Mega Rhodes Home Meds and New Rx's Prescriptions: New clindamycin HCl 300 mg capsule 300 mg PO TID 7 Days Qty: 21 0RF No Action lamotrigine 100 mg tablet 150 mg PO DAILY Nurtec ODT 75 mg tablet,disintegrating 75 mg PO ONCE PRN (Reason: migraine headache) Qty: 8 5RF Rx Instructions: as a single dose; no more than 1 tab daily Emgality Pen 120 mg/mL pen injector 120 mg subcut QMONTH Qty: 3 3RF Viibryd 10 mg (7)- 20 mg (23) tablets,dose pack 40 dose pk PO DIRECTED Patient Comments: TAKE ONE BY MOUTH EVERY DAY WITH FOOD Discharge Instructions Instructions: Strep Throat (ED) Medical Decision Making Emergent evaluation of sore throat. Patient has positive sick contact with strep throat. She has no other sick URI symptoms. She has no documented fever. However given her symptoms and sick contact, will treat empirically with antibiotics. Medical Records Medical records reviewed: Yes I reviewed the patient's medical records. HPI General Date/Time Provider Initiated Documentation: 05/09/23 21:59 . Limitations to Documentation: no limitations . Information obtained by: patient . HPI Narrative: 32-year-old female with past medical history of migraine headaches, depression, presents for evaluation of sore throat. Throat has been hurting for 2 days. Is severe, constant, worse with swallowing. No difficulty swallowing, no voice changes. Hector warm, but no measured fever. Daughter has tested positive for strep throat and is on antibiotics. Related Data Home Medications Medication Instructions Recorded Confirmed galcanezumab-gnlm 120 mg/mL 120 mg subcut QMONTH #3 mL 09/05/22 03/25/23 subcutaneous pen injector (Emgality Pen) lamotrigine 100 mg tablet 150 mg PO DAILY 03/25/23 03/25/23 rimegepant 75 mg disintegrating 75 mg PO ONCE PRN migraine 03/25/23 03/25/23 tablet (Nurtec ODT) headache #8 tabs vilazodone 10 mg (7)-20 mg (23) 40 dose pk PO DIRECTED 09/20/23 09/20/23 tablets in a titration pack (Viibryd) clindamycin HCl 300 mg capsule 300 mg PO TID 7 days #21 caps 05/09/23 Previous Rx's Medication Instructions Recorded galcanezumab-gnlm 120 mg/mL 120 mg subcut QMONTH #3 mL 09/05/22 subcutaneous pen injector (Emgality Pen) rimegepant 75 mg disintegrating 75 mg PO ONCE PRN migraine 03/25/23 tablet (Nurtec ODT) headache #8 tabs clindamycin HCl 300 mg capsule 300 mg PO TID 7 days #21 caps 05/09/23 Allergies Allergy/AdvReac Type Severity Reaction Status Date / Time ibuprofen Allergy Severe Skin Rash Verified 03/25/23 08:54 paroxetine [From Paxil] Allergy Severe throat Verified 03/25/23 08:54 swells penicillin G Allergy Severe Anaphylaxis Verified 03/25/23 08:54 codeine Allergy Intermediate HIVES Verified 03/25/23 08:54 amphetamine [From Adderall] AdvReac Unknown Pt states Verified 03/25/23 08:54 it makes her very violent dextroamphetamine AdvReac Unknown Pt states Verified 03/25/23 08:54 [From Adderall] it makes her very violent General FRITZ: 4 PFSH All Active Problems Acute sore throat (Acute) Right ankle instability (Acute) URI, acute (Acute) COVID (Acute) Migraine headache without aura (Acute) Migraine headache with aura (Acute) Migraine with status migrainosus (Acute) 10/22/21. prophylactic medication changed to Propranalol 20mg BID. Pt will f/u with Dr. Nunez Encounter for sterilization (Acute) Depression with anxiety (Chronic) Leg pain (Acute) Idiopathic small fiber peripheral neuropathy (Acute) Medical History Sterilization consult Fibromyalgia History of prior with SGA History of anorexia nervosa History of penicillin allergy Family history of thyroid disease in mother Mother had thyroidectomy as well as MGM PTSD (post-traumatic stress disorder) Pt. states nothing is a potential trigger Suicidal ideation history of SI ADHD Opioid dependence No MAT for 6 years Tobacco use Hx of varicella Acute recurrent otitis media Idiopathic peripheral neuropathy Surgical History Status post primary low transverse section 10/20/2021. Arrest of labor. No significant past surgical history Family History Mother Devic's syndrome Headache Sister Cancer bone marrow cancer Social History Smoking/Tobacco Use Status: Current-Occasional Tobacco Type: e-cigarettes Smoking risk assessment performed?: Yes Alcohol Intake: current Alcohol Intake frequency: a few times a month Alcohol type: beer Drug use: Rarely Substance use type: marijuana Details: last time smoked over a year per pt. Adopted: No Household members: children Housing: house Number of Children: 2 current occupation: [employer] working Pets and animals: Yes ([employer]) Current gender identity: female What is your relationship status?: never Panel score (0-1 are the most socially isolated patients): 0 What type of physical activity do you participate in: none Seatbelt use: sometimes Do you feel safe at home: Yes Do you feel safe in your relationship?: Yes History History 2 Para 2 Hx # Term Pregnancies 2 Multiple births 0 Hx # Pregnancies 0 Ectopic pregnancies 0 AB induced 0 Hx Number of Living Children 2 AB spontaneous 0 Past Pregnancies Del. Date GA/Weeks # Preg Succ Route Wgt Sex Labor Lgth Anesth esia Location [facility] 04/11/13 40 No vaginal 2409.709 g Female 14 regional Anea 10/20/21 39 No 4082.331 g Male Ganesh Hernandez Delivery Date: 04/11/13 Last Updated by: Leilani Putnam CNM SGA, Rachelle Delivery Date: 10/20/21 Last Updated by: ARI Hunter Exam Narrative Exam Narrative: Review of Systems: All systems reviewed & are unremarkable except as noted in HPI and below Well-developed, no acute distress NACT PERRL, normal conjunctiva Oropharynx with enlarged tonsils, erythema + Cervical lymphadenopathy RRR Unlabored respiratory effort Nondistended abdomen Extremities w/o deformity, no cyanosis, no edema No rashes or lesions. no focal neurologic deficits Appropriate mood and affect
== END 2023-05-09 22:19 | disposition home or self-care (01) ==
PROVIDERS: Emergency Provider Emergency Medicine; PCP Internal Medicine
DX: J02.9 Acute pharyngitis, unspecified (principal)
CPT/HCPCS: 99283

== ENCOUNTER 2023-08-16 17:14 | Emergency (ER) | payer MEDICAID, SELFPAY ==
--- NOTE | 2023-08-16 17:14 | W.ED.GENAD ---
HPI General Date/Time Provider Initiated Documentation: 08/16/23 17:14. HPI Narrative: MDM This is a 32-year-old afebrile not tachycardic female with vertigo reassuring against dangerous causes. No head strike to suggest traumatic source of vertigo. No fevers to suggest meningitis so I do not feel that she requires a lumbar puncture. No pain out of proportion to suggest necrotizing soft tissue infection. No ear pain to suggest mastoiditis nor labyrinthitis. No foreign bodies in ears. Patient is neurologically intact so my suspicion is low for CVA. Given her lack of risk factors my low suspicion for CVA I do not feel that she requires an MRI. No tonic-clonic activity to suggest seizure so I do not feel that she requires an EEG. No recent cervical spinal manipulation to suggest cervical arterial dissection. No focal weakness nor visual changes to suggest multiple sclerosis. Will ensure she does not have any metabolic causes. I considered anemia however the patient denies any vaginal bleeding and bright red blood per rectum. Will check a TSH to evaluate for thyroid disease. I did not apply the hints exam as the patient is not having any nystagmus on neurological examination. I considered PE however the patient is PERC negative and not having any chest pain or shortness of breath. Will obtain a troponin to assess for myocardial injury. Patient is status post laparoscopic bilateral salpingectomy so I did not send an hCG. Patient has no malignant dysrhythmias on ECG. Cardiac arrhythmia/EKG or abnormalities considered: 1. ACS: No ST changes 2. Tachy-rosa isela: No blocks 3. WPW: No delta wave 4. Brugada: No RSR'; R-bundle appearance 5. HCM: No LVH; needle Qs/ T-wave inversions 6. Short/ Long QT: 300 < QTc < 500; no family hx 7. Arrhythmogenic Right Ventricular Dysplasia: No epsilon wave, no inverted Ts in anterior precordium Will attempt treatment with meclizine but deferred Solen-Hallpike maneuver given that patient is symptomatic at rest. 6 PM CBC lacks anemia thrombocytopenia and leukocytosis. 6:40 PM CBC shows mild anion gap but no [place]. Normal bicarbonate. Normal glucose. Negative troponin. Magnesium within normal limits. TSH within normal limits. 7:15 PM Patient felt mildly improved. I have asked health post anesthesia care unit nurse Kristyn to have the patient seen later this week by her primary care provider. We discussed return indications to the emergency department including any chest pain any syncope or any shortness of breath. Patient understood her return indications and patient was discharged with empiric trial of outpatient expectant management. Chronic conditions affecting the care of the patient: N/A History obtained from an outside historian: [] External record review: [facility] [place] Diagnostic interpretations performed by me: Per my independent interpretation chest x-ray shows: Per my independent interpretation EKG shows: Narrow complex normal sinus rhythm at a rate of 78. Normal axis. Intervals within normal limits. No ST segment abnormalities. T wave flattening in aVL. No acute injury pattern. No prior for comparison. ]Medications: Meclizine Social determinants of health affecting disposition: N/A Management discussed with: N/A Treatment/interventions considered: N/A Response to therapies provided: N/A HPI This is a 32-year-old female with a history of migraine headaches arriving to the emergency department with her sister in the setting of lightheadedness and dizziness. Patient reports that she has intermittently had 2 weeks of symptoms but that over the past day her symptoms have worsened. She denies any chiropractic manipulation. She takes lamotrigine for her bipolar disorder. She also reportedly has an injectable pen to use for migraines. She is not currently having a headache. She denies any recent falls. She is occasionally been nauseous but she denies shortness of breath chest pain fevers abdominal pain vomiting. She has not had any vaginal bleeding. She denies bright red blood for rectum. No recent travel. No history of PE nor DVT. She vapes tobacco rarely drinks ethanol and denies IV drug use. Exam General: Mildly uncomfortable-appearing in no acute distress speaking in complete sentences. Head: Normocephalic, atraumatic. Eye:[Pupils equal, round reactive to light.] Extraocular eye movements intact. No conjunctival injection. No scleral icterus. Ear, nose, mouth, throat: Grossly normal inspection. Normal voice, handling secretions normally. Neck: Trachea midline. No nuchal rigidity Cardiovascular: Well-perfused distal extremities.regular rate and rhythm Respiratory: Nonlabored respiration. Clear lungs bilaterally Gastrointestinal: Nondistended abdomen. Soft nontender Musculoskeletal: No edema. Moving all 4 extremities spontaneously. Skin: Normal for age and race, grossly normal temperature and turgor. No acute rash. Neurologic: Alert and appropriate, no apparent acute deficits. GCS 15. Cranial nerves II through XII intact grossly. No dysmetria. No dysdiadochokinesia. No pronator drift. No truncal ataxia. Negative Romberg. 5 out of 5 strength bilateral upper and lower extremities. Psychiatric: Mood and manner are appropriate. Grooming and personal hygiene are appropriate. Related Data Home Medications Medication Instructions Recorded Confirmed galcanezumab-gnlm 120 mg/mL 120 mg subcut QMONTH #3 mL 09/05/22 08/16/23 subcutaneous pen injector (Emgality Pen) lamotrigine 100 mg tablet 150 mg PO DAILY 03/25/23 08/16/23 rimegepant 75 mg disintegrating 75 mg PO ONCE PRN migraine 03/25/23 08/16/23 tablet (Nurtec ODT) headache #8 tabs vilazodone 10 mg (7)-20 mg (23) 40 dose pk PO DIRECTED 03/25/23 08/16/23 tablets in a titration pack (Viibryd) Previous Rx's Medication Instructions Recorded galcanezumab-gnlm 120 mg/mL 120 mg subcut QMONTH #3 mL 09/05/22 subcutaneous pen injector (Emgality Pen) rimegepant 75 mg disintegrating 75 mg PO ONCE PRN migraine 03/25/23 tablet (Nurtec ODT) headache #8 tabs Allergies Allergy/AdvReac Type Severity Reaction Status Date / Time ibuprofen Allergy Severe Skin Rash Verified 08/16/23 17:18 paroxetine [From Paxil] Allergy Severe throat Verified 08/16/23 17:18 swells penicillin G Allergy Severe Anaphylaxis Verified 08/16/23 17:18 codeine Allergy Intermediate HIVES Verified 08/16/23 17:18 amphetamine [From Adderall] AdvReac Unknown Pt states Verified 08/16/23 17:18 it makes her very violent dextroamphetamine AdvReac Unknown Pt states Verified 08/16/23 17:18 [From Adderall] it makes her very violent General FRITZ: 4 Medical Decision Making Quality:SDOH Health Related Social Needs: No Data to Display PFSH All Active Problems (Updated 08/16/23 @ 18:03 by Devin Colin MD) Dizziness (Acute) Right ankle instability (Acute) URI, acute (Acute) COVID (Acute) Migraine headache without aura (Acute) Migraine headache with aura (Acute) Migraine with status migrainosus (Acute) 10/22/21. prophylactic medication changed to Propranalol 20mg BID. Pt will f/u with Dr. Nunez Encounter for sterilization (Acute) Depression with anxiety (Chronic) Leg pain (Acute) Idiopathic small fiber peripheral neuropathy (Acute) Medical History Sterilization consult Fibromyalgia History of prior with SGA History of anorexia nervosa History of penicillin allergy Family history of thyroid disease in mother Mother had thyroidectomy as well as MGM PTSD (post-traumatic stress disorder) Pt. states nothing is a potential trigger Suicidal ideation history of SI ADHD Opioid dependence No MAT for 6 years Tobacco use Hx of varicella Acute recurrent otitis media Idiopathic peripheral neuropathy Surgical History Status post primary low transverse section 10/20/2021. Arrest of labor. No significant past surgical history Family History Mother Devic's syndrome Headache Sister Cancer bone marrow cancer Social History Smoking/Tobacco Use Status: Current-Occasional Tobacco Type: e-cigarettes Smoking risk assessment performed?: Yes Alcohol Intake: current Alcohol Intake frequency: a few times a month Alcohol type: beer Drug use: Rarely Substance use type: marijuana Details: last time smoked over a year per pt. Adopted: No Household members: children Housing: house Number of Children: 2 current occupation: [employer] working Pets and animals: Yes ([employer]) Current gender identity: female What is your relationship status?: never Panel score (0-1 are the most socially isolated patients): 0 What type of physical activity do you participate in: none Seatbelt use: sometimes Do you feel safe at home: Yes Do you feel safe in your relationship?: Yes History History 2 Para 2 Hx # Term Pregnancies 2 Multiple births 0 Hx # Pregnancies 0 Ectopic pregnancies 0 AB induced 0 Hx Number of Living Children 2 AB spontaneous 0 Past Pregnancies Del. Date GA/Weeks # Preg Succ Route Wgt Sex Labor Lgth Anesthesia Location Prov Complic 04/11/13 40 No vaginal 2409.709 g Female 14 regional [place] 10/20/21 39 No 4082.331 g Male Jerica Hernandez Delivery Date: 04/11/13 Last Updated by: Leilani Putnam CNM Rachelle MISTRY Delivery Date: 10/20/21 Last Updated by: ARI Hunter Discharge Plan Disposition Patient Disposition: Home Discharge Details Clinical Impression: Dizziness Primary Care Provider: Tim Kim ED Provider: Devin Colin Home Meds and New Rx's Prescriptions: Continued lamotrigine 100 mg tablet 150 mg PO DAILY Nurtec ODT 75 mg tablet,disintegrating 75 mg PO ONCE PRN (Reason: migraine headache) Qty: 8 5RF Rx Instructions: as a single dose; no more than 1 tab daily Emgality Pen 120 mg/mL pen injector 120 mg subcut QMONTH Qty: 3 3RF Viibryd 10 mg (7)- 20 mg (23) tablets,dose pack 40 dose pk PO DIRECTED Patient Comments: TAKE ONE BY MOUTH EVERY DAY WITH FOOD Discharge Instructions Instructions: Dizziness (ED) Additional Instructions: You were seen in the emergency department for your dizziness. Your blood work shows that your kidneys are working well and that you are not anemic. Your thyroid is also working well. Please return to the emergency department if you develop chest pain shortness of breath or if you pass out as we discussed. Otherwise please call your primary care provider next week for a follow-up appointment. Discharge Data Discharge Date/Time-TO BE ENTERED AT DEPARTURE: 08/16/23 19:30
--- NOTE | 2023-08-16 17:15 | RT.EKG_ITS ---
APPROVED REPORT Exam: Resting ECG Reason for Exam: Dizzy Patient Location: E HR:78 bpm ECG Measurements Heart Rate 78 AXIS SD 124 P 66 QRSd 83 QRS 70 QT 362 T 71 QTc 414 Conclusion Sinus rhythm...normal P axis, V-rate 60- 99 Narrow complex normal sinus rhythm at a rate of 78. Normal axis. Intervals within normal limits. N o ST segment abnormalities. T wave flattening in aVL. No acute injury pattern. No prior for compar maisha.
[2023-08-16 17:16] VITALS: BP 114/58; PULSE 77; RESP 18; TEMP 36.4; O2SAT 99
[2023-08-16] MEDS: Meclizine 25 MG TAB PO (17:53)
[2023-08-16] MEDS: Normal Saline 1,000 ML 1000 ML IV (17:53)
[2023-08-16 17:55] VITALS: BP 118/62; PULSE 76; RESP 17; O2SAT 99
[2023-08-16 17:57] LABS: Abs Immature Grans 0.01 10^3/uL (0.0-0.06); Absolute Basophil Count 0.04 10^3/uL (0.0-0.2); Absolute Eosinophil Count 0.07 10^3/uL (0.0-0.7); Absolute Lymphocyte Count 2.75 10^3/uL (1.2-3.4); Absolute Neutrophil Count 3.96 10^3/uL (1.2-6.7); Basophils % 0.5; HCT 39.1 % (36.0-46.0); Immature Grans % 0.1; Lymphocytes % 37.5; MCH 30.8 pg (27.0-33.0); MCHC 35.8 % (32.0-36.0); MCV 86 fL (80-95); MPV 9.8 fL (8.0-11.0); Monocytes % 6.8; Neutrophils % 54.1; Platelet Count 199 10^3/uL (130-400); RBC 4.55 10^6/uL (3.93-5.22); RDW 12.2 % (11.7-14.6); RDW-SD 38.3 fL; WBC 7.33 10^3/uL (4.4-10.8)
[2023-08-16 18:22] LABS: Anion Gap 11.5 mmol/L (3-11); BUN 14 mg/dL (7-18); CO2 23.5 mmol/L (21.0-32.0); CREATININE 0.7 mg/dL (0.55-1.02); Calcium 8.8 mg/dL (8.5-10.1); Chloride 104 mmol/L (98-107); Estimated GFR 119.24 (mL/min/1.73m2); Glucose 102 mg/dL (74-106); Magnesium 1.8 mg/dL (1.8-2.4); Potassium 3.9 mmol/L (3.5-5.1); Sodium 139 mmol/L (136-145); TSH (W/Ref FT4) 1.14 uIU/mL (0.36-3.74); Troponin I < 50 ng/L (< or =60)
--- NOTE | 2023-08-16 19:17 | NUR.NOTE ---
Referral faxed to [facility] Dr Kim to f/u the week of 08/17/23 for dizziness. Nursing Note
[2023-08-16 19:29] VITALS: BP 116/68; PULSE 72; RESP 16; O2SAT 99
== END 2023-08-16 19:30 | disposition home or self-care (01) ==
PROVIDERS: Emergency Provider Emergency Medicine; PCP Internal Medicine
DX: R42 Dizziness and giddiness (principal); F17.290 Nicotine dependence, other tobacco product, uncomplicated
CPT/HCPCS: 36415; 80048; 93005; 96360; 99284; 83735; 84443; 84484; 85025; 93010; 99283

== ENCOUNTER 2023-08-18 12:18 | Outpatient (REF) | payer MEDICAID, SELFPAY ==
[2023-08-18 14:54] LABS: Hemoglobin A1C 4.9 % (<5.7)
[2023-08-18 15:02] LABS: Iron 128 ug/dL (50-170); Total Iron Binding Capacity 315 ug/dL (250-450); Transferrin Sat 41 % (15-50)
[2023-08-18 15:30] LABS: Ferritin 31 ng/mL (8-252); Vitamin B12 533 pg/mL (193-986)
== END 2023-08-18 12:19 | disposition home or self-care (01) ==
LOC: NCHCN 12:18
PROVIDERS: PCP Internal Medicine; Visit Provider Nurse Practitioner Family
DX: R20.2 Paresthesia of skin (principal); R42 Dizziness and giddiness; R79.89 Other specified abnormal findings of blood chemistry
CPT/HCPCS: 82607; 82728; 83036; 83540; 83550

== ENCOUNTER 2023-08-25 22:39 | Emergency (ER) | payer MEDICAID, SELFPAY ==
[2023-08-25 22:54] VITALS: BP 97/81; PULSE 71; RESP 21; TEMP 36.6; O2SAT 100
--- NOTE | 2023-08-25 23:11 | ED.GENADUL_ITS ---
HPI General Mode of arrival: ambulatory . Date/Time Provider Initiated Documentation: 08/25/23 22:53 . Limitations to Documentation: no limitations . Information obtained by: patient, RN notes reviewed and old records reviewed . HPI Narrative: 32 year old female presents to the ED with cc throat pain which began this evening. Denies cough, SOB, or any other symptoms. PmHX Fibromyalgia, Anorexia, PTSD, ADHD. Related Data Home Medications Medication Instructions Recorded Confirmed galcanezumab-gnlm 120 mg/mL 120 mg subcut QMONTH #3 mL 09/05/22 08/16/23 subcutaneous pen injector (Emgality Pen) lamotrigine 100 mg tablet 150 mg PO DAILY 03/25/23 08/16/23 rimegepant 75 mg disintegrating 75 mg PO ONCE PRN migraine 03/25/23 08/16/23 tablet (Nurtec ODT) headache #8 tabs vilazodone 10 mg (7)-20 mg (23) 40 dose pk PO DIRECTED 03/25/23 08/16/23 tablets in a titration pack (Viibryd) Previous Rx's Medication Instructions Recorded galcanezumab-gnlm 120 mg/mL 120 mg subcut QMONTH #3 mL 09/05/22 subcutaneous pen injector (Emgality Pen) rimegepant 75 mg disintegrating 75 mg PO ONCE PRN migraine 03/25/23 tablet (Nurtec ODT) headache #8 tabs Allergies Allergy/AdvReac Type Severity Reaction Status Date / Time ibuprofen Allergy Severe Skin Rash Verified 08/16/23 17:18 paroxetine [From Paxil] Allergy Severe throat Verified 08/16/23 17:18 swells penicillin G Allergy Severe Anaphylaxis Verified 08/16/23 17:18 codeine Allergy Intermediate HIVES Verified 08/16/23 17:18 amphetamine [From Adderall] AdvReac Unknown Pt states Verified 08/16/23 17:18 it makes her very violent dextroamphetamine AdvReac Unknown Pt states Verified 08/16/23 17:18 [From Adderall] it makes her very violent General Stated Complaint: Sorethroat FRITZ: 4 Review of Systems All systems reviewed & are unremarkable except as noted in HPI and below ENT Ears, Nose, Mouth, and Throat: Reports as per HPI, Reports odynophagia and Reports sore throat Respiratory Respiratory: Denies cough Gastrointestinal Gastrointestinal: Reports odynophagia Exam [facility] General nose exam: external nose normal and nares normal Mouth: oral mucosae normal, lip normal, tongue normal and moist mucous membranes Throat: posterior oropharynx abnormal erythema; no exudates Course Vital Signs Vital signs: Vital Signs Temperature 36.6 C 08/25/23 22:54 Pulse 71 08/25/23 22:54 Respiratory Rate 21 08/25/23 22:54 Blood Pressure 97/81 L 08/25/23 22:54 Pulse Oximetry 100 08/25/23 22:54 Temperature 36.6 C 08/25/23 22:54 Temperature Source Temporal Artery Scan 08/25/23 22:54 Pulse 71 08/25/23 22:54 Respiratory Rate 21 08/25/23 22:54 Blood Pressure 97/81 L 08/25/23 22:54 Pulse Oximetry 100 08/25/23 22:54 Oxygen Delivery Method Room Air 08/25/23 22:54 Oxygen Flow Rate 0 08/25/23 22:54 Pain Level 5 08/25/23 22:54 Medical Decision Making 32 year old female presents to the ED with cc throat pain which began this evening. Denies cough, SOB, or any other symptoms. PmHX Fibromyalgia, Anorexia, PTSD, ADHD. Rapid strep ordered, Dexamethasone ordered and Tylenol PO, Patient discharged with home care instructions and follow up care. This text was generated using [email or web address] dictation system, please disregard any oddities of phrase or misspellings. Quality:SDOH Health Related Social Needs: No Data to Display PFSH All Active Problems (Updated 08/25/23 @ 23:38 by Kindra Heath NP) Acute viral pharyngitis (Acute) Dizziness (Acute) Right ankle instability (Acute) URI, acute (Acute) COVID (Acute) Migraine headache without aura (Acute) Migraine headache with aura (Acute) Migraine with status migrainosus (Acute) 10/22/21. prophylactic medication changed to Propranalol 20mg BID. Pt will f/u with Dr. Nunez Encounter for sterilization (Acute) Depression with anxiety (Chronic) Leg pain (Acute) Idiopathic small fiber peripheral neuropathy (Acute) Medical History Sterilization consult Fibromyalgia History of prior with SGA History of anorexia nervosa History of penicillin allergy Family history of thyroid disease in mother Mother had thyroidectomy as well as MGM PTSD (post-traumatic stress disorder) Pt. states nothing is a potential trigger Suicidal ideation history of SI ADHD Opioid dependence No MAT for 6 years Tobacco use Hx of varicella Acute recurrent otitis media Idiopathic peripheral neuropathy Surgical History Status post primary low transverse section 10/20/2021. Arrest of labor. No significant past surgical history Family History Mother Devic's syndrome Headache Sister Cancer bone marrow cancer Social History Smoking/Tobacco Use Status: Current-Occasional Tobacco Type: e-cigarettes Smoking risk assessment performed?: Yes Alcohol Intake: current Alcohol Intake frequency: a few times a month Alcohol type: beer Drug use: Rarely Substance use type: marijuana Details: last time smoked over a year per pt. Adopted: No Household members: children Housing: house Number of Children: 2 current occupation: [email or web address] working Pets and animals: Yes ([employer]) Current gender identity: female What is your relationship status?: never Panel score (0-1 are the most socially isolated patients): 0 What type of physical activity do you participate in: none Seatbelt use: sometimes Do you feel safe at home: Yes Do you feel safe in your relationship?: Yes History History 2 Para 2 Hx # Term Pregnancies 2 Multiple births 0 Hx # Pregnancies 0 Ectopic pregnancies 0 AB induced 0 Hx Number of Living Children 2 AB spontaneous 0 Past Pregnancies Del. Date GA/Weeks # Preg Succ Route Wgt Sex Labor Lgth Anesth esia Location Prov Complic 04/11/13 40 No vaginal 2409.709 g Female 14 regional [facility] 10/20/21 39 No 4082.331 g Male Ganesh Hernandez Delivery Date: 04/11/13 Last Updated by: Leilani Putnam CNM SGA, Rachelle Delivery Date: 10/20/21 Last Updated by: ARI Hunter Discharge Plan Disposition Patient Disposition: Home Condition: Stable Discharge Details Clinical Impression: Acute viral pharyngitis Primary Care Provider: Avis Koch ED Provider: Kindra Heath Home Meds and New Rx's Prescriptions: No Action lamotrigine 100 mg tablet 150 mg PO DAILY Nurtec ODT 75 mg tablet,disintegrating 75 mg PO ONCE PRN (Reason: migraine headache) Qty: 8 5RF Rx Instructions: as a single dose; no more than 1 tab daily Emgality Pen 120 mg/mL pen injector 120 mg subcut QMONTH Qty: 3 3RF Viibryd 10 mg (7)- 20 mg (23) tablets,dose pack 40 dose pk PO DIRECTED Patient Comments: TAKE ONE BY MOUTH EVERY DAY WITH FOOD Discharge Instructions Instructions: Pharyngitis (ED) Additional Instructions: Gargle with warm salt water up to 3 times daily as needed. Negative rapid strep swab, it is being sent for a culture. Please take Tylenol or Ibuprofen with food every 4-6 hours as needed for pain and swelling. You may use [id number] throat lozenges and throat spray as directed. Follow up with primary care provider in 3-5 days. Return to ED sooner if any worsening or concerns. Increase oral fluids. Stand Alone Forms: Work Release Referrals: Avis Koch [Primary Care Provider] - 3 days
[2023-08-25] MEDS: Acetaminophen 325 MG TAB 650 MG PO (23:23)
[2023-08-25] MEDS: Dexamethasone 10 MG/ML VIAL PO (23:23)
== END 2023-08-26 00:16 | disposition home or self-care (01) ==
PROVIDERS: Emergency Provider Registered Nurse Emergency; PCP Nurse Practitioner Family
DX: J02.8 Acute pharyngitis due to other specified organisms (principal); F17.290 Nicotine dependence, other tobacco product, uncomplicated
CPT/HCPCS: 87880; 99283; 87081; J1100

== ENCOUNTER → 2023-10-06 03:43 | Outpatient (CLI) | payer MEDICAID, SELFPAY ==
--- NOTE | 2023-10-06 06:45 | DI.MRI_ITS ---
Exam(s) MR BRAIN WO EXAM: MR BRAIN WO CLINICAL HISTORY: R Leg weakness with normal EMG,R29.898 TECHNIQUE: Multiplanar multisequence MRI of the brain was performed. COMPARISON: No exams were available for comparison FINDINGS: CEREBRAL PARENCHYMA: There is no evidence of intracranial hemorrhage, mass effect, or shift of midline structures. There are no extra-axial fluid collections. Ventricles are not enlarged or shifted. There is no significant focal signal abnormality in the cerebellar hemispheres nor within the annamaria, m idbrain, and thalami. There is no abnormal signal abnormality in the periventricular white matter. No evidence of demyelin ating disease. There is no significant focal signal abnormality evident on diffusion imaging to suggest acute ischem ic event. SWI reveals no evidence of brain microhemorrhages PITUITARY GLAND: No mass nor parasellar abnormality. No obvious abnormality in the cavernous sinuses. FLOW VOIDS: The expected flow void are noted. No evidence of obvious aneurysm nor obvious vascular ma lformation. PARANASAL SINUSES: The visualized paranasal sinuses appear unremarkable. No obvious finding ORBITS: No obvious findings. IMPRESSION: No significant intracranial findings on this noninfused MRI scan of the brain. Also no evidence of demyelinating disease. DATA REPOSITORY:
== END ==
PROVIDERS: PCP Nurse Practitioner Family; Visit Provider Psychiatry & Neurology Neurology
DX: R29.898 Other symptoms and signs involving the musculoskeletal system (principal); M62.81 Muscle weakness (generalized)
CPT/HCPCS: 70551

== ENCOUNTER 2023-10-28 15:40 | Emergency (ER) | payer MEDICAID, SELFPAY ==
[2023-10-28 15:42] VITALS: BP 110/62; PULSE 101; RESP 18; TEMP 36.7; O2SAT 99
[2023-10-28 15:53] VITALS: BP 110/62; PULSE 101; RESP 18; TEMP 36.7; O2SAT 99
--- NOTE | 2023-10-28 16:09 | W.ED.GENAD ---
Discharge Plan Disposition Patient Disposition: Home Condition: Stable Discharge Details Clinical Impression: Oral mucosal lesion Primary Care Provider: Avis Koch ED Provider: Rafaela Zuluaga Home Meds and New Rx's Prescriptions: New cetirizine 10 mg capsule 10 mg PO DAILY Qty: 10 0RF Continued lamotrigine 100 mg tablet 150 mg PO DAILY Aimovig Autoinjector 140 mg/mL auto-injector 140 mg subcut QMONTH Qty: 1 11RF naratriptan 2.5 mg tablet See Rx Instructions PO .COMPLEX Qty: 12 3RF Rx Instructions: take 1 tab at onset of headache; if no relief may repeat 1 tab after at least 4 hrs; max = 2 tabs/24 hrs PO lorazepam 0.5 mg tablet 0.5 mg PO ONCE PRN (Reason: anxiety/claustrophobia) Qty: 2 0RF Rx Instructions: Take one tablet 30min prior to MRI. Ok to take second at time of MRI if still anxious. Do not drive after taking. Viibryd 10 mg (7)- 20 mg (23) tablets,dose pack 40 dose pk PO DIRECTED Patient Comments: TAKE ONE BY MOUTH EVERY DAY WITH FOOD Discharge Instructions Additional Instructions: Please follow-up with [facility] tomorrow as scheduled. You may use the Magic mouthwash 10 mL every 3 hours as needed for discomfort. Do not exceed this dosing, as the lidocaine can lead to serious side effects if taken excessively. Cool drinks and soft foods may also be helpful for mouth sores. You may use the cetirizine 10 mg daily to help treat allergic reaction. You may continue to use naproxen for discomfort as needed as well Return to emergency care if you develop new facial swelling, worsening tongue swelling, voice change, difficulty swallowing, difficulty breathing, wheezing, nausea/vomiting, abdominal pain, or if you are very worried and need to be rechecked again immediately Referrals: [facility] [Provider Group] HPI General Date/Time Provider Initiated Documentation: 10/28/23 15:42. HPI Narrative: Radha is a 33 year old female who presents to the emergency dept for evaluation of concern for reaction to novocaine. She had dental work with novocaine performed two days ago (Thursday evening), developed a feeling of swelling to the sides of her tongue and sores on the sides of her cheeks/inner lips and under her tongue the next day. She reports she had a similar reaction with a sore in her mouth following dental work with joo a month ago. Denies difficulty swallowing, voice change, wheezing/shortness of breath, nausea/vomiting/abdominal pain/diarrhea, rashes on skin other than in mouth. No recent illness such as fever/chills, sore throat, syncope, cough. No other identifiable triggers. Denies significant PMH. She did take naproxen this morning with some improvement in discomfort, has also been using salt water rinses. Has a dental appt tmrw at [facility] Related Data Home Medications Medication Instructions Recorded Confirmed lamotrigine 100 mg tablet 150 mg PO DAILY 03/25/23 10/28/23 vilazodone 10 mg ()-20 mg () 40 dose pk PO DIRECTED 03/25/23 10/28/23 tablets in a titration pack (Viibryd) erenumab-aooe 140 mg/mL 140 mg subcut QMONTH #1 mL 09/15/23 10/28/23 subcutaneous auto-injector (Aimovig Autoinjector) naratriptan 2.5 mg tablet See Rx Instructions PO .COMPLEX 09/15/23 10/28/23 #12 tabs lorazepam 0.5 mg tablet 0.5 mg PO ONCE PRN 09/22/23 10/28/23 anxiety/claustrophobia #2 tabs cetirizine 10 mg capsule 10 mg PO DAILY #10 caps 10/28/23 Previous Rx's Medication Instructions Recorded erenumab-aooe 140 mg/mL 140 mg subcut QMONTH #1 mL 09/15/23 subcutaneous auto-injector (Aimovig Autoinjector) naratriptan 2.5 mg tablet See Rx Instructions PO .COMPLEX 09/15/23 #12 tabs lorazepam 0.5 mg tablet 0.5 mg PO ONCE PRN 09/22/23 anxiety/claustrophobia #2 tabs cetirizine 10 mg capsule 10 mg PO DAILY #10 caps 10/28/23 Allergies Allergy/AdvReac Type Severity Reaction Status Date / Time ibuprofen Allergy Severe Skin Rash Verified 10/28/23 15:46 paroxetine [From Paxil] Allergy Severe throat Verified 10/28/23 15:46 swells penicillin G Allergy Severe Anaphylaxis Verified 10/28/23 15:46 codeine Allergy Intermediate HIVES Verified 10/28/23 15:46 General Stated Complaint: DentalOral FRITZ: 3 Review of Systems Narrative: see HPI Exam Const General: cooperative, healthy appearing, comfortable, no acute distress and well developed Nutritional Appearance: average body habitus [facility] Head: normal to inspection Ears: hearing grossly normal bilaterally General nose exam: external nose normal Face and sinus: normal facial exam Mouth: oropharynx normal, moist mucous membranes, no audible dysphonia, no drooling and oral mucosa abnormal (scattered shallow, erythematous ulcerations noted to buccal mucosa) vesicles (x1, under tongue) Teeth and gingiva: dentition normal Throat: posterior oropharynx normal and uvula midline Neck Neck: normal visual inspection, full ROM and no lymphadenopathy Resp Effort & Inspection: normal respiratory effort and able to speak in complete sentences Auscultation: clear to auscultation bilaterally Cardio Rate: regular rate Rhythm: regular rhythm Skin General skin exam: no rashes or lesions noted Course Vital Signs Vital signs: Vital Signs Temperature 36.7 C 10/28/23 15:42 Pulse 101 H 10/28/23 15:42 Respiratory Rate 18 10/28/23 15:42 Blood Pressure 110/62 10/28/23 15:42 Pulse Oximetry 99 10/28/23 15:42 Temperature 36.7 C 10/28/23 15:53 Temperature Source Skin 10/28/23 15:53 Pulse 101 H 10/28/23 15:53 Respiratory Rate 18 10/28/23 15:53 Respiratory Effort Normal, Non-Labored 10/28/23 15:45 Blood Pressure 110/62 10/28/23 15:53 Blood Pressure Position Sitting 10/28/23 15:53 Pulse Oximetry 99 10/28/23 15:53 Oxygen Delivery Method Room Air 10/28/23 15:53 Oxygen Flow Rate 0 10/28/23 15:53 Pain Level 4 10/28/23 15:53 Medical Decision Making Radha is a 33 year old female who presents to the emergency dept for evaluation of concern for reaction to novocaine. She had dental work with novocaine performed two days ago (Thursday evening), developed a feeling of swelling to the sides of her tongue and sores on the sides of her cheeks/inner lips and under her tongue the next day. She reports she had a similar reaction with a sore in her mouth following dental work with Novocaine a month ago. Denies difficulty swallowing, voice change, wheezing/shortness of breath, nausea/vomiting/abdominal pain/diarrhea, rashes on skin other than in mouth. She does feel like saliva is collecting in her lower lip, thinks this is related to discomfort/swelling to inner lower lip. No recent illness such as fever/chills, sore throat, syncope, cough. No other identifiable triggers. Denies significant PMH. She did take naproxen this morning with some improvement in discomfort, has also been using salt water rinses. Has a dental appt tmrw at [facility] Physical exam very reassuring. Small shallow ulcerations noted to buccal mucosa and inner lip mucosa. Small white headed vesicular lesion under tongue. No obvious tongue swelling. No drooling during exam, able to handle secretions well. No submandibular or cervical lymphadenopathy. Easy work of breathing, lung sounds clear bilaterally. No obvious rashes over rest of skin noted. DDx includes but isnot limited to medication reaction, aphthous ulcers, mucocele, viral lesions. No red flags concerning for anaphylaxis While in the emergency department Radha received Magic mouthwash swish and spit, as well as Toradol IM. She reports she has tolerated Toradol well in the past, dose was given for discomfort. Good pain control with magic mouthwash; bottle given for home use. Unclear etiology of mouth sores, possibly related to medication or other topical products used during dental work. Timeline unlikely for viral illness, though localized irritation due to dental work is also possible. Reviewed discharge instructions with patient, including red flags indicate need for return to emergency care Quality:SDOH Health Related Social Needs: No Data to Display PFSH All Active Problems (Updated 10/28/23 @ 16:56 by Rafaela Curiel) Oral mucosal lesion (Acute) Right leg weakness (Acute) Right ankle instability (Acute) URI, acute (Acute) COVID (Acute) Migraine headache without aura (Acute) Migraine headache with aura (Acute) Migraine with status migrainosus (Acute) 10/22/21. prophylactic medication changed to Propranalol 20mg BID. Pt will f/u with Dr. Nunez Encounter for sterilization (Acute) Depression with anxiety (Chronic) Leg pain (Acute) Idiopathic small fiber peripheral neuropathy (Acute) Medical History Sterilization consult Fibromyalgia History of prior with SGA History of anorexia nervosa History of penicillin allergy Family history of thyroid disease in mother Mother had thyroidectomy as well as MGM PTSD (post-traumatic stress disorder) Pt. states nothing is a potential trigger Suicidal ideation history of SI ADHD Opioid dependence No MAT for 6 years Tobacco use Hx of varicella Acute recurrent otitis media Idiopathic peripheral neuropathy Surgical History Status post primary low transverse section 10/20/2021. Arrest of labor. No significant past surgical history Family History Mother Devic's syndrome Headache Sister Cancer bone marrow cancer Social History Smoking/Tobacco Use Status: Current-Occasional Tobacco Type: e-cigarettes Smoking risk assessment performed?: Yes Alcohol Intake: current Alcohol Intake frequency: a few times a month Alcohol type: beer Drug use: Rarely Substance use type: marijuana Details: last time smoked over a year per pt. Adopted: No Household members: children Housing: house Number of Children: 2 current occupation: [employer] working Pets and animals: Yes ([employer] [employer] Current gender identity: female What is your relationship status?: never Panel score (0-1 are the most socially isolated patients): 0 What type of physical activity do you participate in: none Seatbelt use: sometimes Do you feel safe at home: Yes Do you feel safe in your relationship?: Yes History History 2 Para 2 Hx # Term Pregnancies 2 Multiple births 0 Hx # Pregnancies 0 Ectopic pregnancies 0 AB induced 0 Hx Number of Living Children 2 AB spontaneous 0 Past Pregnancies Del. Date GA/Weeks # Preg Succ Route Wgt Sex Labor Lgth Anesthesia Location Prov Complic 04/11/13 40 No vaginal 2409.709 g Female 14 regional Anea 10/20/21 39 No 4082.331 g Male Jerica Hernandez Delivery Date: 04/11/13 Last Updated by: Leilani Putnam CNM SGA, Rachelle Delivery Date: 10/20/21 Last Updated by: ARI Hunter
[2023-10-28] MEDS: Cetirizine 10 MG TAB PO (16:49)
[2023-10-28] MEDS: Ketorolac 30 MG/ML VIAL IM (16:50)
[2023-10-28] MEDS: Magic Mouthwash 119 ML BTL 10 ML MM (16:51)
== END 2023-10-28 17:19 | disposition home or self-care (01) ==
PROVIDERS: Emergency Provider Nurse Practitioner Family; PCP Nurse Practitioner Family
DX: K13.70 Unspecified lesions of oral mucosa (principal)
CPT/HCPCS: 90471; 96372; 99283; J1885

== ENCOUNTER 2023-11-02 18:18 | Outpatient (REF) | payer MEDICAID, SELFPAY ==
[2023-11-04 09:50] LABS: HSV 1 DNA Result Negative (Negative); HSV 2 DNA Result Negative (Negative)
== END 2023-11-02 18:19 | disposition home or self-care (01) ==
LOC: LBN 18:18
PROVIDERS: PCP Nurse Practitioner Family; Visit Provider Physician Assistant
DX: K12.0 Recurrent oral aphthae (principal)
CPT/HCPCS: 87529

== ENCOUNTER 2023-11-04 14:20 | Outpatient (REF) | payer MEDICAID, SELFPAY ==
[2023-11-04 15:22] LABS: Folate 11.3 ng/mL (8.6-20.0)
[2023-11-05 00:19] LABS: Rheumatoid Factor 10.5 IU/mL (<12.0)
[2023-11-05 14:50] LABS: ANA Interpretation Negative (Negative)
[2023-11-06 13:39] LABS: Tissue Transglutaminase Ab IgA <1.2 U/mL (<4.0); Tissue Transglutaminase Ab IgG 1.7 U/mL
[2023-11-06 17:02] LABS: Ro60 Ab, IgG <7.0 CU (<20.0); SS-A/Ro, IgG <2.3 CU (<20.0); SS-B (La) Ab, IgG <3.3 CU (<20.0)
== END 2023-11-04 14:21 | disposition home or self-care (01) ==
LOC: NCHCN 14:20
PROVIDERS: PCP Nurse Practitioner Family; Visit Provider Nurse Practitioner Family
DX: A57 Chancroid (principal)
CPT/HCPCS: 82746; 83516; 86038; 86235; 86431

== ENCOUNTER 2023-11-06 13:23 | Outpatient (CLI) | payer MEDICAID, SELFPAY ==
--- NOTE | 2023-12-01 09:29 | W.CARDEVENT ---
Date of service: 12/01/23 Time of Service: 09:29 Cardiac Event Recorder Referring Provider:: Avis Koch Indications:: Dizziness Cardiac Event Note: This is a cardiac event monitor. Patient was monitored for 13 days Rhythm throughout was sinus. Average heart rate was 81. Minimum was 43, maximum 164 There were 2 premature ventricular contractions. There were very rare atrial premature beats, less than 1% of total. There was no atrial fibrillation, no high-grade AV block, no pauses greater than 3 seconds Patient's symptoms correlated with sinus rhythm
== END 2023-11-06 13:24 | disposition home or self-care (01) ==
PROVIDERS: PCP Nurse Practitioner Family; Visit Provider Nurse Practitioner Family
DX: R42 Dizziness and giddiness (principal)
CPT/HCPCS: 93246

== ENCOUNTER 2023-11-16 09:04 | Emergency (ER) | payer MEDICAID, SELFPAY ==
[2023-11-16] VITALS (28 sets, daily range): BP systolic 88–133; BP diastolic 49–83; PULSE 48–83; RESP 8–28; TEMP 36.6; O2SAT 78–100
--- NOTE | 2023-11-16 09:00 | RT.EKG_ITS ---
APPROVED REPORT Exam: Resting ECG Reason for Exam: Dizzy Patient Location: E HR:66 bpm ECG Measurements Heart Rate 66 AXIS SD 139 P 40 QRSd 82 QRS 60 QT 377 T 60 QTc 396 Conclusion Sinus rhythm. 66 no stemi
[2023-11-16] MEDS: Normal Saline 1,000 ML 1000 ML IV ×2 (09:44→10:57)
[2023-11-16] MEDS: Ondansetron 4 MG/2 ML VIAL IVP (09:47)
[2023-11-16 09:52] LABS: Abs Immature Grans 0.02 10^3/uL (0.0-0.06); Absolute Basophil Count 0.03 10^3/uL (0.0-0.2); Absolute Eosinophil Count 0.03 10^3/uL (0.0-0.7); Absolute Lymphocyte Count 2.15 10^3/uL (1.2-3.4); Absolute Monocyte Count 0.27 10^3/uL (0.1-0.8); Absolute Neutrophil Count 2.21 10^3/uL (1.2-6.7); Basophils % 0.6 %; Eosinophils % 0.6 %; HCT 37.4 % (36.0-46.0); HGB 13.1 g/dL (11.2-15.7); Immature Grans % 0.4 %; Lymphocytes % 45.6 %; MCH 31.6 pg (27.0-33.0); MCV 90 fL (80-95); MPV 9.7 fL (8.0-11.0); Monocytes % 5.7 %; Neutrophils % 47.1 %; Platelet Count 191 10^3/uL (130-400); RBC 4.15 10^6/uL (3.93-5.22); RDW 12.3 % (11.7-14.6); RDW-SD 40.3 fL; WBC 4.71 10^3/uL (4.4-10.8)
[2023-11-16 10:08] LABS: ALT 26 U/L (14-59); AST 15 U/L (15-37); Albumin 3.8 g/dL (3.4-5.0); Alkaline Phosphatase 58 U/L (46-116); Anion Gap 8.8 mmol/L (3-11); BUN 10 mg/dL (7-18); Bilirubin, Total 0.5 mg/dL (0.2-1.0); CO2 29.2 mmol/L (21.0-32.0); CREATININE 0.9 mg/dL (0.55-1.02); Calcium 8.4 mg/dL (8.5-10.1); Chloride 104 mmol/L (98-107); Creatine Kinase 68 U/L (26-192); Estimated GFR 87.65 (mL/min/1.73m2); Glucose 89 mg/dL (74-106); Magnesium 1.8 mg/dL (1.8-2.4); Potassium 3.9 mmol/L (3.5-5.1); Sodium 142 mmol/L (136-145)
[2023-11-16 11:06] LABS: Bilirubin Negative (Negative); Blood Negative (Negative); Clarity Clear (Clear); Glucose Negative (Negative); Ketones Negative (Negative); Leukocyte Esterase Negative (Negative); Nitrite Negative (Negative); Urobilinogen 0.2 mg/dL (Up to 0.2)
--- NOTE | 2023-11-16 14:00 | W.ED.GENAD ---
Discharge Plan Disposition Patient Disposition: Home Condition: Stable Discharge Details Clinical Impression: Orthostatic hypotension Primary Care Provider: Avis Koch ED Provider: Mega Rhodes Home Meds and New Rx's Prescriptions: No Action lamotrigine 100 mg tablet 150 mg PO DAILY Aimovig Autoinjector 140 mg/mL auto-injector 140 mg subcut QMONTH Qty: 1 11RF naratriptan 2.5 mg tablet See Rx Instructions PO .COMPLEX Qty: 12 3RF Rx Instructions: take 1 tab at onset of headache; if no relief may repeat 1 tab after at least 4 hrs; max = 2 tabs/24 hrs PO lorazepam 0.5 mg tablet 0.5 mg PO ONCE PRN (Reason: anxiety/claustrophobia) Qty: 2 0RF Rx Instructions: Take one tablet 30min prior to MRI. Ok to take second at time of MRI if still anxious. Do not drive after taking. Viibryd 10 mg (7)- 20 mg (23) tablets,dose pack 40 dose pk PO DIRECTED Patient Comments: TAKE ONE BY MOUTH EVERY DAY WITH FOOD Discharge Instructions Instructions: Hypotension (ED) Additional Instructions: Your blood pressure was on the low side today. Please make sure to drink plenty of water and follow-up with your PCP regarding blood pressure changes and your Holter monitor as well. Lab work otherwise unremarkable, no signs of infection. HPI General Date/Time Provider Initiated Documentation: 11/16/23 09:14. Limitations to Documentation: no limitations. Information obtained by: patient. HPI Narrative: 33-year-old female with past medical history of migraine headaches, fibromyalgia presents for evaluation of dizziness. The dizziness is associated with feeling weak and shaky. She reports that she went white . She reports that she has been having the symptoms intermittently over the last few weeks. She denies any loss of consciousness or falls. She denies any vomiting or diarrhea or fever. She reports that she called her PCP over the weekend, and was instructed to come to the emergency department today for further evaluation. She reports that she is currently wearing a Holter monitor for similar symptoms. Related Data Home Medications Medication Instructions Recorded Confirmed lamotrigine 100 mg tablet 150 mg PO DAILY 03/25/23 11/16/23 vilazodone 10 mg (7)-20 mg (23) 40 dose pk PO DIRECTED 03/25/23 11/16/23 tablets in a titration pack (Viibryd) erenumab-aooe 140 mg/mL 140 mg subcut QMONTH #1 mL 09/15/23 11/16/23 subcutaneous auto-injector (Aimovig Autoinjector) naratriptan 2.5 mg tablet See Rx Instructions PO .COMPLEX 09/15/23 11/16/23 #12 tabs lorazepam 0.5 mg tablet 0.5 mg PO ONCE PRN 09/22/23 11/16/23 anxiety/claustrophobia #2 tabs Previous Rx's Medication Instructions Recorded erenumab-aooe 140 mg/mL 140 mg subcut QMONTH #1 mL 09/15/23 subcutaneous auto-injector (Aimovig Autoinjector) naratriptan 2.5 mg tablet See Rx Instructions PO .COMPLEX 09/15/23 #12 tabs lorazepam 0.5 mg tablet 0.5 mg PO ONCE PRN 09/22/23 anxiety/claustrophobia #2 tabs Allergies Allergy/AdvReac Type Severity Reaction Status Date / Time ibuprofen Allergy Severe Skin Rash Verified 11/16/23 09:09 paroxetine [From Paxil] Allergy Severe throat Verified 11/16/23 09:09 swells penicillin G Allergy Severe Anaphylaxis Verified 11/16/23 09:09 codeine Allergy Intermediate HIVES Verified 11/16/23 09:09 General Stated Complaint: Dizzy/Sync FRITZ: 3 Exam Narrative Exam Narrative: Review of Systems: All systems reviewed & are unremarkable except as noted in HPI and below Well-developed, no acute distress NCAT PERRL, normal conjunctiva RRR +orthostatic Unlabored respiratory effort, clear bilaterally Nondistended abdomen, nontender Extremities w/o deformity, no cyanosis, no edema No rashes or lesions. no focal neurologic deficits Appropriate mood and affect Course Vital Signs Vital signs: Vital Signs Temperature 36.6 C 11/16/23 09:06 Pulse 68 11/16/23 09:06 Respiratory Rate 16 11/16/23 09:06 Blood Pressure 112/49 L 11/16/23 09:06 Pulse Oximetry 98 11/16/23 09:06 Temperature 36.6 C 11/16/23 09:06 Temperature Source Temporal Artery Scan 11/16/23 09:06 Pulse 51 L 11/16/23 11:48 Pulse 54 L 11/16/23 11:40 Respiratory Rate 20 11/16/23 11:48 Respiratory Effort Normal, Non-Labored 11/16/23 10:01 Respiratory Depth Normal 11/16/23 10:01 Respiratory Pattern Normal 11/16/23 10:01 Blood Pressure 107/55 L 11/16/23 11:48 Blood Pressure Mean 74 11/16/23 11:34 Blood Pressure Position Sitting 11/16/23 09:06 Pulse Oximetry 100 11/16/23 11:48 Oxygen Delivery Method Room Air 11/16/23 09:06 Oxygen Flow Rate 0 11/16/23 09:06 Pain Level 0 11/16/23 09:06 Lab/Test Results Lab/Test Results: Laboratory Tests Range/Units 11/16/23 11/16/23 09:40 10:57 WBC (4.4-10.8) 10^3/uL 4.71 RBC (3.93-5.22) 10^6/uL 4.15 Hgb (11.2-15.7) g/dL 13.1 Hct (36.0-46.0) % 37.4 MCV (80-95) fL 90 MCH (27.0-33.0) pg 31.6 MCHC (32.0-36.0) % 35.0 RDW (11.7-14.6) % 12.3 Plt Count (130-400) 10^3/uL 191 MPV (8.0-11.0) fL 9.7 Immature Gran % % 0.4 Neutrophils % % 47.1 Lymphocytes % % 45.6 Monocytes % % 5.7 Eosinophils % % 0.6 Basophils % % 0.6 Nucleated RBC % (0.0-0.3) % 0.0 Absolute Neutrophils (1.2-6.7) 10^3/uL 2.21 Absolute Lymphocytes (1.2-3.4) 10^3/uL 2.15 Absolute Monocytes (0.1-0.8) 10^3/uL 0.27 Absolute Eosinophils (0.0-0.7) 10^3/uL 0.03 Absolute Basophils (0.0-0.2) 10^3/uL 0.03 Sodium (136-145) mmol/L 142 Potassium (3.5-5.1) mmol/L 3.9 Chloride (98-107) mmol/L 104 Carbon Dioxide (21.0-32.0) mmol/L 29.2 Anion Gap (3-11) mmol/L 8.8 BUN (7-18) mg/dL 10 Creatinine (0.55-1.02) mg/dL 0.9 Est GFR (CKD-EPI 2020) (mL/min/1.73m2) 87.65 Glucose (74-106) mg/dL 89 Calcium (8.5-10.1) mg/dL 8.4 L Magnesium (1.8-2.4) mg/dL 1.8 Total Bilirubin (0.2-1.0) mg/dL 0.5 AST (15-37) U/L 15 ALT (14-59) U/L 26 Alkaline Phosphatase (46-116) U/L 58 Creatine Kinase (26-192) U/L 68 Total Protein (6.4-8.2) g/dL 7.0 Albumin (3.4-5.0) g/dL 3.8 Urine Color (Yellow) Yellow Urine Clarity (Clear) Clear Urine pH (5-8) 7.0 Ur Specific [place] (1.005-1.025) 1.020 Urine Protein (Neg-Trace) mg/dL Negative Urine Ketones (Negative) mg/dL Negative Urine Blood (Negative) Negative Urine Nitrite (Negative) Negative Urine Bilirubin (Negative) Negative Urine Urobilinogen (Up to 0.2) mg/dL 0.2 Ur Leukocyte Esterase (Negative) Negative Urine Glucose (Negative) mg/dL Negative POC- Test(urine) Negative Medical Decision Making Emergent evaluation of dizziness and weakness. Initial differential includes dehydration, orthostatic hypotension, fibromyalgia, anemia. Patient is well-appearing and does have some mild orthostatic changes. Will begin fluid resuscitation. The patient has no signs or symptoms concerning for acute bleeding. So I doubt anemia. Lab work was obtained , no leukocytosis or anemia. Electrolytes with some mild hypokalemia calcium but no significant or diagnostic derangement . There is no sign of urine infection. The patient was resuscitated with IV fluids and her repeat orthostatic vital signs were negative. I suspect that this may be the etiology of her symptoms and I recommend that she increase water intake. Follow-up with her PCP for evaluation of the Holter monitor and persistent symptoms. Return precautions advised. Medical Records Medical records reviewed: Yes I reviewed the patient's medical records. Lab Data Lab results reviewed: Yes I reviewed the patient's lab results. Quality:SDOH Health Related Social Needs: No Data to Display PFSH All Active Problems Orthostatic hypotension (Acute) Oral mucosal lesion (Acute) Right leg weakness (Acute) Right ankle instability (Acute) URI, acute (Acute) COVID (Acute) Migraine headache without aura (Acute) Migraine headache with aura (Acute) Migraine with status migrainosus (Acute) 10/22/21. prophylactic medication changed to Propranalol 20mg BID. Pt will f/u with Dr. Nunez Encounter for sterilization (Acute) Depression with anxiety (Chronic) Leg pain (Acute) Idiopathic small fiber peripheral neuropathy (Acute) Medical History Sterilization consult Fibromyalgia History of prior with SGA History of anorexia nervosa History of penicillin allergy Family history of thyroid disease in mother Mother had thyroidectomy as well as MGM PTSD (post-traumatic stress disorder) Pt. states nothing is a potential trigger Suicidal ideation history of SI ADHD Opioid dependence No MAT for 6 years Tobacco use Hx of varicella Acute recurrent otitis media Idiopathic peripheral neuropathy Surgical History Status post primary low transverse section 10/20/2021. Arrest of labor. No significant past surgical history Family History Mother Devic's syndrome Headache Sister Cancer bone marrow cancer Social History Smoking/Tobacco Use Status: Current-Occasional Tobacco Type: e-cigarettes Smoking risk assessment performed?: Yes Alcohol Intake: current Alcohol Intake frequency: a few times a month Alcohol type: beer Drug use: Rarely Substance use type: marijuana Details: last time smoked over a year per pt. Adopted: No Household members: children Housing: house Number of Children: 2 current occupation: [employer] working Pets and animals: Yes (hermit crab) Current gender identity: female What is your relationship status?: never Panel score (0-1 are the most socially isolated patients): 0 What type of physical activity do you participate in: none Seatbelt use: sometimes Do you feel safe at home: Yes Do you feel safe in your relationship?: Yes History History 2 Para 2 Hx # Term Pregnancies 2 Multiple births 0 Hx # Pregnancies 0 Ectopic pregnancies 0 AB induced 0 Hx Number of Living Children 2 AB spontaneous 0 Past Pregnancies Del. Date GA/Weeks # Preg Succ Route Wgt Sex Labor Lgth Anesthesia Location Prov Complic 04/11/13 40 No vaginal 2409.709 g Female 14 regional Anea 10/20/21 39 No 4082.331 g Male Jerica Hernandez Delivery Date: 04/11/13 Last Updated by: Leilani Putnam CNM SGA, Rachelle Delivery Date: 10/20/21 Last Updated by: ARI Hunter
== END 2023-11-16 11:53 | disposition home or self-care (01) ==
PROVIDERS: Emergency Provider Emergency Medicine; PCP Nurse Practitioner Family
DX: I95.1 Orthostatic hypotension (principal); F17.290 Nicotine dependence, other tobacco product, uncomplicated
CPT/HCPCS: 80053; 81025; 82550; 93005; 96361; 96374; 99284; 81003; 83735; 85025; 93010; J2405

== ENCOUNTER 2023-12-01 09:44 | Outpatient (CLI) | payer MEDICAID, SELFPAY | END 2023-12-01 09:45 | disposition home or self-care (01) | LOC: CARDOPNVT 09:44 | PROVIDERS: PCP Nurse Practitioner Family; Visit Provider Internal Medicine Cardiovascular Disease | DX: R42 Dizziness and giddiness (principal) ==

== ENCOUNTER 2024-01-31 10:20 | Emergency (ER) | payer MEDICAID, SELFPAY ==
[2024-01-31 10:23] VITALS: BP 113/78; PULSE 85; RESP 16; TEMP 36.3; O2SAT 100
--- OUTSIDE RECORDS SUMMARY | 2024-01-31 10:25 | XMS_ITS | Encounter Summary ---
Author Organization [facility] Address [address] [place] [address] Care Team Providers Care Manager Poker Name Role Phone Tim Kim MD Primary Care Provider Encounter Details Date Type Department Care Team (Late st Contact Info) Description 11/04/2023 Lab Requisition [facility] Pathology & Laboratory Medicine - [address] [address] Outr Resulting Lab, Provider Social History Tobacco Use Types Packs/Day Years Used Date Smoking Tobacco: Never Assessed Sex and Gender Information Value Date Recorded Sex Assigned at Not on file Gender Identity Not on file Sexual Orientation Not on file documented as of this encounter Plan of Treatment Upcoming Encounters Date Type Department Care Team (Late st Contact Info) Description 04/28/2024 14:45 EDT Office Visit [facility] Rheumatology [address] [place] [address] Alan Mann MBBS [address] [place] [address], [facility] [address] [place] [phone] documented as of this encounter Procedures Procedure Name Priority Date/Time Associated Diagnosis Comments SSA/SSB PANEL Routine 11/04/2023 11:40 EDT RHEUMATOID FACTOR Routine 11/04/2023 11: 40 EDT ANTI NUCLEAR AB (SHIKHA), IFA Routine 11/04/2023 11:40 EDT documented in this encounter Results * RHEUMATOID FACTOR (11/04/2023 11:40 EDT) Rheumatoid Factor 10.5 <12.0 IU/mL 11/05/2023 0:15 EDT [facility] Blood VENOUS BLOOD / Unknown 11/04/2023 11:40 EDT 11/04/2023 21:29 EDT Provider Outr Resulting Lab CHEMISTRY & BLOOD GAS ORDERABLES Performing Organization Address [facility] Co de Phone Number [facility] [address] [place] [address] * SSA/SSB PANEL (11/04/2023 11:40 EDT) Ro52 Anitbody, IgG <2.3 <20.0 CU 2023 16:56 EDT [facility] Comment:Results were obtaine d with the Marley SpoonA Flash Ro52 chemiluminescent immunoassay. Values obtained with different manufacturers' assay methods must not be used interchangeably. Ro60 Antibody, IgG <7.0 <20.0 CU 2023 16:56 EDT [facility] Comment:Results were obtaine d with the Marley SpoonA Flash Ro60 chemiluminescent immunoassay. Values obtained with different manufacturers' assay methods must not be used interchangeably. SSB Antibody, IgG <3.3 <20.0 CU 024 16:56 EDT [facility] Comment:Results were obtaine d with the Marley SpoonA Flash SS-B chemiluminescent immunoassay. Values obtained with different manufacturers' assay methods must not be used interchangeably. Blood VENOUS BLOOD / Unknown 11/04/2023 11:40 EDT 11/04/2023 21:29 EDT Provider Outr Resulting Lab IMMUNOLOGY A ND SEROLOGY ORDERABLES Performing Organization Address [facility]/ZIP Co de Phone Number [facility] [address] [place], [place] [phone] * ANTI NUCLEAR AB (SHIKHA), IFA (11/04/2023 11:40 EDT) SHIKHA Interpretation Negative Negative 2023 14:44 EDT [facility] Comment:No titer performed, SHIKHA Screen is negative. Blood VENOUS BLOOD / Unknown 11/04/2023 11:40 EDT 11/04/2023 21:29 EDT Narrative [facility] - 11/05/2023 14:44 EDT Results were obtained with the INOVA NOVA Lite HEp-2 SHIKHA Kit by indirect immunofluorescence. Provider Outr Resulting Lab IMMUNOLOGY A ND SEROLOGY ORDERABLES [facility] [address] [place] [address] documented in this encounter Visit Diagnoses Not on filedocumented in this encounter Care Teams Manager Poker Relationship Specialty Start Date End Date Tim Kim MD [address] [place], [place] [phone] PCP - General 09/03/21 documented as of this encounter
--- OUTSIDE RECORDS SUMMARY | 2024-01-31 10:25 | XMS_ITS | Encounter Summary ---
Author Organization [facility] Address [address] [place] [address] Care Team Providers Care Rubber Extrusion Machine Operator Name Role Phone Unknown, Provider Primary Care Provider [phone] Tim Kim MD Primary Care Provider Encounter Details Date Type Department Care Team (Late st Contact Info) Description 07/27/2020 Lab Requisition [facility] Pathology & Laboratory Medicine - [address] [address] Outr Resulting Lab, Provider Social History Tobacco [...] Info) Description 04/28/2024 14:45 EDT Office Visit [facility] Rheumatology [address] [place] [address] Alan Mann MBBS [address] [facility], [facility] [address] [place] [phone] documented as of this encounter Procedures Procedure Name Priority Date/Time Associated Diagnosis Comments CHLAMYDIA/N. GONORRHOEAE AMPLIFIED NUCLEIC ACID Routine 07/27/2020 11:25 EST documented in this encounter Results * CHLAMYDIA/N. GONORRHOEAE AMPLIFIED RNA (07/27/2020 11:25 EST) Neisseria gonorrhoeae Result Negative Negative 07/30/2020 14:21 EST [facility] Chlamydia trachomatis Result Negative Negative 07/30/2020 14:21 EST [facility] Swab ENTIRE WALL OF CERVIX / Unknown 07/27/2020 11:25 EST 07/27/2020 22:04 EST Provider Outr Resulting Lab MICROBIOLOGY - GENERAL ORDERABLES Performing Organization Address City/State/[facility] Co de Phone Number [facility] [address] [place] [address] documented in this encounter Visit Diagnoses Not on filedocumented in this encounter Care Teams Rubber Extrusion Machine Operator Relationship Specialty Start Date End Date Unknown, Provider, PCP - General 04/13/13 09/02/21 Tim Kim MD [address] [place] [address] PCP - General 09/03/21 documented as of this encounter
--- OUTSIDE RECORDS SUMMARY | 2024-01-31 10:25 | XMS_ITS | Encounter Summary ---
Author Organization [facility] Address [address] [place] [address] Care Team Providers Care Retail Receiving Clerk Name Role Phone Tim Kim MD Primary Care Provider [phone] Encounter Details Date Type Department Care Team (Late st Contact Info) Description 10/21/2021 Lab Requisition [facility] Pathology & Laboratory Medicine - [address] [address] Jerica Hernandez [address] [place] [address] [place] [phone] Encounter for other general examination Social History Tobacco Use Types Packs/Day Years Used Date Smoking Tobacco: Never Assessed Sex and Gender Information Value Date Recorded Sex Assigned at Not on file Gender Identity Not on file Sexual Orientation Not on file documented as of this encounter Plan of Treatment Upcoming Encounters Date Type Department Care Team (Late st Contact Info) Description 04/28/2024 14:45 EDT Office Visit [facility] Rheumatology [address] [place] [address] Alan Mann MBBS 111 [facility], [facility] [address] [place] [phone] documented as of this encounter Procedures Procedure Name Priority Date/Time Associated Diagnosis Comments SURGICAL PATHOLOGY Today 10/20/2021 21 :46 EDT Encounter for other general examination documented in this encounter Results * SURGICAL PATHOLOGY (10/20/2021 21:46 EDT) Note to Patient The following pathology results have been interpreted by your pathologist and may be available to you before your health provider has had the opportunity to review them. Please allow time for your provider to receive these results and explore management options, if applicable. 10/30/2021 16:27 [facility] Final Diagnosis A. PLACENTA: Cordero placenta, 634 grams (>90th %ile for 38 and 6/7 weeks gestational age). Disc: - Acute chorionic plate vasculitis (FIR stage 1, grade 1; see diagnostic rangel). - Subchorionic thrombohematomas and increased perivillous fibrin with associated extravillous trophoblast cysts. - Large for gestational age placenta with accelerated villous maturation and chorangiomatosis-l ruma hypervascularity. - vascular malperfusion, low grade: avascular villi, villous stromal vascular karyorrhexis and intramural fibrin deposition. - Chronic (plasma cell) deciduitis. Membranes: - Acute chorioamnionitis (MIGUELITO stage 2, grade 1; see diagnostic rangel). - Meconium laden macrophages. Umbilical cord: - 3 vessels. - No significant histopathologic changes. 10/30/2021 16:27 [facility] Diagnosis Comment Diagnostic rangel - Maternal inflammatory response (MIGUELITO): Stage (location): Stage 0 - Pre-MERCEDEZ: Neutrophils in the subchorial intervillous space of the chorionic plate. Stage 1 (Early): Neutrophils in chorion laeve. Stage 2 (Intermediate): Neutrophils within chorionic or amnionic mesoderm. Stage 3 (Advanced): Stage 2 with necrosis of amnionic epithelium and/or neutrophils. Grade (severity): Grade 1 (Mild to moderate): Anything less than severe. Grade 2 (Severe): Confluent or > 3 foci of > 200 cells. Diagnostic rangel - inflammatory response (FIR): Stage: Stage 1 (Early): inflammatory cells within chorionic plate vessel szymanski and/or umbilical vein vessel wall. Stage 2 (Intermediate): inflammatory cells within umbilical arteries with or without cells in vein wall. Stage 3 (Advanced): Necrotizing funisitis. Grade: Grade 1 (Mild to moderate): Anything less than severe as described below. Grade 2 (Severe): Confluent inflammatory cells with attenuation/degene ration of smooth muscle. Sandoval MATHIAS, Edith Dasilva (2020). [place] of Placental Pathology. AFIP Atlases of Tumor and non-Tumor Pathology (Series 5). [place] Registry of Pathology; [place], [place]. Adapted from Nestor RW, Shubham O, Carolina D, Frances F, Magalie V, Corey Arenas; Society for Pediatric Pathology, Section, Amniotic Fluid Infection Nosology Committee. 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 Pediatr Dev Pathol. 2002-Apr;6(5):435-4 8. 10/30/2021 16:27 [facility] Attestation By the signature below, the attending physician certifies that they have 1) personally conducted a gross and/or microscopic examination of the described specimen(s), and/or personally interpreted the results of laboratory testing of the described specimen(s), and 2) personally rendered or confirmed the above diagnosis. 10/30/2021 16:27 [facility] at 1627 Clinical History Active labor, 38.6 weeks 10/30/2021 16:27 [facility] Gross Description A. Received in formalin labelled with proper patient identification (initials N, S) and placenta is a cordero placenta. There is a 7.5 cm in length and 1.2 cm in diameter attached, and 28.0 cm in length and 1.1 cm in diameter detatched segment of white-ott to blue, three vessel umbilical cord. It demonstrates a paracentral insertion 8.3 cm from the nearest disc margin. There are 2 coils per 10 cm. The membranes are ott-case to somewhat green and semi-translucent with a marginate insertion. The point of rupture lies at the disc margin. The disc is 634.0 g (trimmed, formalin fixed), 20.0 x 19.5 x 3.4 cm and ovoid. The surface is blue-case to ott and somewhat green with a dispersed vascular pattern. There are no lesions present on the surface. The maternal surface is brown-case with an intact basal plate. There is a moderate amount of loosely attached blood clot. There is no indentation. The cut surface of the placental parenchyma is spongy, red-brown. Three ott-yellow to red laminated nodules (1.4 x 1.0 x 0.9 cm to 4.0 x 2.5 x 1.8 cm) are present, occupying approximately 10% of the placental disc. The largest nodule is subjacent to the umbilical cord insertion site and has a partly gelatinous cut surface. Residential Insurance Inspector sections are submitted as follows: BLOCK RANGEL A1- membrane roll and cross-section of end of cord A2- membrane roll and cross-section of cord 5 cm from insertion site A3 and A4- full thickness section of placental disc adjacent to umbilical cord insertion site including nodule, bisected A5 and A6- two full thickness sections of central 2/3 of placental disc A7 and A8- full thickness section of central 2/3 of placental disc including nodule, bisected LIZ ASHLEY(ASCP) 10/22/2021 14:27 10/30/2021 16:27 EDT [facility] Performing Lab [facility] 16:27 EDT [facility] Scanned Images 10/30/2021 16:27 EDT [facility] Tissue PLACENTAL STRUCTURE / Unknown 10/20/2021 21:46 EDT 10/21/2021 17:21 EDT Jerica Hernandez PATHOLOGY ORDERABLES [facility] [address] [place] [address] documented in this encounter Visit Diagnoses Diagnosis Encounter for other general examination documented in this encounter Care Teams Retail Receiving Clerk Relationship Specialty Start Date End Date Tim Kim MD [address] [place] [address] PCP - General 09/03/21 documented as of this encounter
--- OUTSIDE RECORDS SUMMARY | 2024-01-31 10:25 | XMS_ITS | Encounter Summary ---
Author Organization [facility] [place] [address] Care Team Providers Care Or Manager Name Role Phone Tim Kim MD Primary Care Provider [phone] Reason for Visit * Consultation (Routine) - Closed Specialty Diagnoses / Procedures Referred By Contac t Referred To Contact Neurology Diagnoses Pain in leg, unspecified Tim Kim MD [address] [place] [address] [facility] Neurology [address] [place] [phone] Referral ID Status Reason Start Date Expiration Date V isits Requested Visits Authorized [id number] Closed Consult, [facility] PCP Updated and/or Approved 07/23/2020 07/23/2021 6 6 Encounter Details Date Type Department Care Team (Latest Contact Info) Description 10/15/2020 1:00 PM EDT Procedure [place] [phone] Samy Mckeon MD [facility] [place] [address] Bilateral leg paresthesia; Muscle pain Social History Tobacco Use Types Packs/Day Years Used Date Smoking Tobacco: Never Assessed Sex and Gender Information Value Date Recorded Sex Assigned at Not on file Gender Identity Not on file Sexual Orientation Not on file documented as of this encounter Last Filed Vital Signs Vital Sign Reading Time Taken Comments Blood Pressure 109/63 10/15/2020 1:11 PM EDT Pulse 73 10/15/2020 1:11 PM EDT Temperature 36.1 ??C (96.9 ??F) 10/15/2020 1:11 PM ED T Respiratory Rate - - Oxygen Saturation 99% 10/15/2020 1:11 PM EDT Inhaled Oxygen Concentration - - Weight - - Height - - Body Mass Index - - documented in this encounter Progress Notes * Samy Mckeon MD - 10/15/2020 1:00 PM EDT I was asked to see Radha Schmidt at the request of Tim Kim MD for further evaluation oflower extremity pain and question small fiber peripheral neuropathy. Radha is a 30-year-old female who came to her appointment alone. I did review a recent note and letter from her PCP as well as recent note from neurology at [facility]. Radha first noted pain in her lower extremities about 7 years ago and it seemed to come and go initially and then gradually became more of an issue. She feels like it is a little bit more of a problem in the left leg than the right but really over time it is almost becoming symmetric at this point. She notes that both proximally and distally. She does not really notice much in the way of burning pain. She does feel like activity can exacerbate her pain. She describes the pain can feel like her bones are pulling apart. It can impair her sleep. She feels it a little bit worse from the knee down but again it is throughout the legs bilaterally. She denies any lowback pain. She does notice some intermittent tingling in her legs. She has not had any pain in her upper extremities with this until about 2 months ago when she is noted some intermittent left proximal forearm and elbow pain off and on although she does not have that today. She ended up having evaluation in [place]. She had several lab tests per the [facility] neurology notes. This included unremarkable CBC, CMP, TSH, magnesium, CK, CCP, celiac antibodies, Lyme panel, SHIKHA, rheumatoid factor, ESR, CRP. 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 She also had lumbar spine MRI at [facility] and it was unrevealing for an etiology per her report. She tried gabapentin and per the notes it seemed to wear off over time although she thought it was helpful but needed to switch off because she was taking some other psychiatric medication. It looks like per the note she briefly took amitriptyline at night but stopped to optimize psychiatric medications. She has taken marijuana over time it helps with her sleep. Lyrica did not lead to any improvement. She declined taking venlafaxine, duloxetine and, amitriptyline due to potential medicine interactions per the notes. She does take Topamax for migraines. On further questioning she also said she ended up having CT of her head and cervical spine at some point which were unrevealing. She does feel like when the pain is more of an issue she has some weakness in her legs with that. She also has coldness of her feet and she feels like she will have some color changes that can be purplish in her lower extremities. She is looking for any further clarification of the diagnosis. Per the notes she may have a small fiber peripheral neuropathy which is idiopathic in nature. She also had unremarkable B12 and SPEP. Past medical history per her notes includes history of opiate abuse in the past although it has been several years since she has been clean from opiates. She has a history of anxiety and bipolar disorder she has a history of PTSD and depression. History of migraine headaches and ADHD. Medications per her list from her PCP which she verified include Concerta, Lamictal 100 mg daily, omeprazole 20 mg daily, Topamax 25 mg daily (she said it was not twice daily), naproxen as needed which she does not take daily, sertraline 150 mg daily per her list from her PCP although she not sure if she is still taking that. Mirena. Allergies include penicillin, Paxil, Adderall, Codeine. Family history negative for neuropathy although her mother has history of Devic's per her report. Social history: She lives with her boyfriend and her 7-year-old daughter. She is currently applyingfor disability although she says she was denied. She says she is disabled from pain and psychiatricstandpoint. She has cut back on smoking and now is vaping per her report. She drinks alcohol occasionally usually about once a week. 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 On focused exam she is alert and attentive. Speech fluent and goal-directed without dysarthria. Affect appropriate. Cranial nerve testing of note extraocular muscles intact and visual escalante full to confrontation. Pupils equal round reactive to light. On motor exam no evidence of muscle atrophy or f asciculations. Tone normal. Strength testing in the upper and lower extremities 5/5 throughout although initially some giveaway with hip flexion and plantar flexion bilaterally but with coaxing 5/5 strength achieved. Reflexes 2+ throughout the upper and lower extremities and toes downgoing to plantar stimulation. Coordination normal [id number] and [id number] testing. Gait slow but no ataxia. Antalgic gait noted. Romberg negative. Sensory exam is intact to temperature light touch andvibration in the upper and lower extremities. On further musculoskeletal testing she does have sometenderness to palpation in the gastrocs bilaterally as well as the lateral thigh bilaterally. No tenderness to palpation in the lumbar paraspinal regions. No tenderness palpation in the arms bilaterally. Clinical data: See history presenting illness. EMG nerve conduction studies today, please see scanned report for complete data. The left sural is normal. Left peroneal tibial motor studies are normal. EMG of the left lower extremity for tibialis anterior, gastroc, vastus lateralis, iliopsoas, and bicep femoris short head revealed no active denervation and normal motor unit action potentials. Assessment: EMG nerve conduction studies are normal and do not demonstrate electrodiagnostic evidence of a generalized peripheral neuropathy or left lumbosacral radiculopathy. We discussed that the clinical picture is not clear with respect to her chronic lower extremity pain. Her history and exam is not typical for small fiber peripheral neuropathy but it cannot be completely ruled out. It is possible that she could have small fiber peripheral neuropathy with her diffuse pain in her lower extremities even without typical burning pain. It is also possible she could have a myofascial pain syndrome/fibromyalgia but she does not really have much in the way of pain in her upper extremities which would be atypical. She does not have any joint swelling and has had some rheumatologic screening of note in the past. Recommendations: Of note she is already had lab test for small fiber peripheral neuropathy which have been unrevealing. We discussed the role of a skin biopsy would could be done to further evaluate for small fiber peripheral neuropathy. We could certainly set her up for that here at [facility] although we also discussed that even if positive it would otherwise not spinning frame changer likely. If it was positive further B vitamin level testing can also be done such as vitamin B1 and B6 through her PCP if not already done, but overall it would just be follow-up with pain management locally as she is planning to do. She will plan to discuss that with Dr. Kim in follow-up. She wanted to know if there was a possibility of this being able for skin biopsy to be done locally due to difficulties with transport and I discussed I am not sure if that is a possibility. Again if she like to have that done at [facility] in [facility] we could arrange that for her. I could also end up seeing her back if she does have a skin biopsy for possible telehealth follow-up if needed in the future. I agree with Dr. Kim regarding pain clinic evaluation. Possible that retrying gabapentin may be helpful. Pain clinic may also consider the possibility of low- dose naltrexone. We also discussed that a rheumatology appointment may also be consideration in the future and she can discuss that with Dr. Kim although it appears to be that the yield may be lower for that. Total time for this office visit is 45 minutes including [id number] time, chart review, and documentation. Time was exclusive of the time for EMG nerve conduction studies. This note was created with voice recognition software. documented in this encounter Plan of Treatment Not on file documented as of this encounter Visit Diagnoses Diagnosis Bilateral leg paresthesia Disturbance of skin sensation Muscle pain Mylagia and myositis, unspecified documented in this encounter Care Teams Or Manager Relationship Specialty Start Date End Date Tim Kim MD [address] [place] [address] PCP - General 05/28/10 documented as of this encounter
--- OUTSIDE RECORDS SUMMARY | 2024-01-31 10:25 | XMS_ITS | Encounter Summary ---
Author Organization [facility] Address [address] [place] [address] Care Team Providers Care Legal Process Specialist Name Role Phone Unknown, Provider Primary Care Provider [phone] Tim Kim MD Primary Care Provider Encounter Details Date Type Department Care Team (Late st Contact Info) Description 06/15/2020 Lab Requisition [facility] Pathology & Laboratory Medicine - [address] [address] Outr Resulting Lab, Provider Social History Tobacco [...] Info) Description 04/28/2024 14:45 EDT Office Visit [facility] Rheumatology [address] [place] [address] Alan Mann MBBS 111 [facility], [facility] [address] [place] [phone] documented as of this encounter Procedures Procedure Name Priority Date/Time Associated Diagnosis Comments DO NOT ORDER STANDALONE - BROAD COVID TEST Today 06/14/2020 11:30 EST COVID-19 TESTING Routine 06/14/2020 11:3 0 EST documented in this encounter Results * DO NOT ORDER STANDALONE - BROAD COVID TEST (06/14/2020 11:30 EST) [facility] COVID-19 rt-PCR Result NEGATIVE Negative 06/17/2020 14:27 EST [facility] Comment: 2019-novel Coronavirus (2019-nCoV) not detected by the qRT-PCR assay. Consider testing for other respiratory viruses or re-collecting for 2019-nCoV testing. Note: Optimum timing for peak viral levels during infections caused by 2019-nCoV have not been determined. Collection of multiple specimens from the same patient may be necessary to detect the virus. Limitations Positive results are indicative of active infection with SARS-CoV-2 but do not rule out bacterial infection or co-infection with other viruses. The agent detected may not be the definite cause of disease. In addition, detection of viral RNA may not indicate the presence of infectious virus or that SARS-CoV-2 is the causative agent for clinical symptoms. Negative results do not preclude SARS-CoV-2 infection and should not be used as the sole basis for patient management decisions. Negative results must be combined with clinical observations, patient history, and epidemiological information. False negative results may also occur if amplification inhibitors are present in the specimen or if inadequate numbers of organisms are present in the specimen. Optimum specimen types and timing for peak viral levels during infections caused by SARS-CoV-2 have not been fully determined. Collection of multiple specimens (types and time points) from the same patient may be necessary to detect the virus. The test was validated for use with upper respiratory specimens obtained via nasopharyngeal or oropharyngeal swabs in VTM, UTM, M4, M5, M6, saline, and MTM media. The performance of this test has not been established for other specimens. Specimens collected using other FDA recommended Specimen Collection Materials listed in the FDA COVID-19 Diagnostic Technologies communication (September 29, 2019) are processed with the caveat that they were not all validated for use with this test and the result must be interpreted in this context. Furthermore, a false negative results may occur if a specimen is improperly collected, transported or handled. If the virus mutates in the RT-PCR target region, SARS-CoV-2 may not be detected or may be detected less predictably. Inhibitors or other types of interference may produce a false negative result. An interference study evaluating the effect of common cold medications was not performed. This test is not FDA-cleared but its performance characteristics were established by our CLIA-certified, CAP-accredited, high complexity laboratory in accordance with CLIA regulations, [employer] (CAP) guidelines (Sep 22, 2019), and FDA guidance (Sep 03, 2019). This test is only for use under the Food and Drug Administration's Emergency Use Authorization. Swab ENTIRE NASOPHARYNX / Unknown 06/14/2020 11:30 EST 06/15/2020 15:53 EST Provider Outr Resulting Lab MICROBIOLOGY - GENERAL ORDERABLES [facility] [place], [place] * COVID-19 TESTING (06/14/2020 11:30 EST) COVID-19 rt-PCR Result NEGATIVE Negative 06/17/2020 16:45 EST [facility] Comment: 2019-novel Coronavirus (2019-nCoV) not detected by the qRT-PCR assay. Consider testing for other respiratory viruses or re-collecting for 2019-nCoV testing. Note: Optimum timing for peak viral levels during infections caused by 2019-nCoV have not been determined. Collection of multiple specimens from the same patient may be necessary to detect the virus. Limitations Positive results are indicative of active infection with SARS-CoV-2 but do not rule out bacterial infection or co-infection with other viruses. The agent detected may not be the definite cause of disease. In addition, detection of viral RNA may not indicate the presence of infectious virus or that SARS-CoV-2 is the causative agent for clinical symptoms. Negative results do not preclude SARS-CoV-2 infection and should not be used as the sole basis for patient management decisions. Negative results must be combined with clinical observations, patient history, and epidemiological information. False negative results may also occur if amplification inhibitors are present in the specimen or if inadequate numbers of organisms are present in the specimen. Optimum specimen types and timing for peak viral levels during infections caused by SARS-CoV-2 have not been fully determined. Collection of multiple specimens (types and time points) from the same patient may be necessary to detect the virus. The test was validated for use with upper respiratory specimens obtained via nasopharyngeal or oropharyngeal swabs in VTM, UTM, M4, M5, M6, saline, and MTM media. The performance of this test has not been established for other specimens. Specimens collected using other FDA recommended Specimen Collection Materials listed in the FDA COVID-19 [employer] communication (September 29, 2019) are processed with the caveat that they were not all validated for use with this test and the result must be interpreted in this context. Furthermore, a false negative results may occur if a specimen is improperly collected, transported or handled. If the virus mutates in the RT-PCR target region, SARS-CoV-2 may not be detected or may be detected less predictably. Inhibitors or other types of interference may produce a false negative result. An interference study evaluating the effect of common cold medications was not performed. This test is not FDA-cleared but its performance characteristics were established by our CLIA-certified, CAP-accredited, high complexity laboratory in accordance with CLIA regulations, [employer] (CAP) guidelines (Sep 22, 2019), and FDA guidance (Sep 03, 2019). This test is only for use under the Food and Drug Administration's Emergency Use Authorization. Performing Lab [facility] 06/17/2020 16:45 EST [facility] Swab 06/14/2020 11:3 0 EST 06/15/2020 15:53 EST Provider Outr Resulting Lab MICROBIOLOGY - GENERAL ORDERABLES [facility] [address] [place] [address] [facility] [place], [place] documented in this encounter Visit Diagnoses Not on filedocumented in this encounter Care Teams Legal Process Specialist Relationship Specialty Start Date End Date Unknown, Provider, PCP - General 04/13/13 09/02/21 Tim Kim MD [address] [place] [address] PCP - General 09/03/21 documented as of this encounter
--- OUTSIDE RECORDS SUMMARY | 2024-01-31 10:25 | XMS_ITS | Encounter Summary ---
Author Organization [facility] Address [address] [place] [address] Care Team Providers Care Social Science Research Assistant Name Role Phone Tim Kim MD Primary Care Provider [phone] Encounter Details Date Type Department Care Team (Late st Contact Info) Description 10/21/2021 Lab Requisition [facility] Pathology & Laboratory Medicine [address] [address] Leilani Hampton, STEAM SERVICE INSPECTOR [address] [place] [phone] Encounter for other general examination Social History [...] Info) Description 04/28/2024 14:45 EDT Office Visit [facility] Rheumatology [address] [place] [address] Alan Mann MBBS 111 [facility], [facility] [address] [place] [phone] documented as of this encounter Procedures Procedure Name Priority Date/Time Associated Diagnosis Comments SCREEN TEST Today 10/21/2021 6:30 EDT Encounter for other general examination documented in this encounter Results * SCREEN TEST (10/21/2021 6:30 EDT) Screen Test NEGATIVE 022 17:54 EDT [facility] Comment:CALLED RESULTS ARUN AT [facility] 10/21/21 @ 17:50. FAXED TO LAB @ [phone] Blood VENOUS BLOOD / Unknown 10/21/2021 6:30 EDT 10/21/2021 17:14 EDT Leilani Hampton APN BLOOD BANK TESTS Performing Organization Address City/State/[facility] Co de Phone Number [facility] [address] [facility] [place] [address] documented in this encounter Visit Diagnoses Diagnosis Encounter for other general examination documented in this encounter Care Teams Social Science Research Assistant Relationship Specialty Start Date End Date Tim Kim MD [address] [place] [address] PCP - General 09/03/21 documented as of this encounter
--- OUTSIDE RECORDS SUMMARY | 2024-01-31 10:25 | XMS_ITS | Encounter Summary ---
Author Organization [facility] Address [address] [place] [address] Care Team Providers Care Waste Reduction Coordinator Name Role Phone Tim Kim MD Primary Care Provider [phone] Encounter Details Date Type Department Care Team (Late st Contact Info) Description 11/03/2023 Lab Requisition [facility] Pathology & Laboratory Medicine - [address] [address] Outr Resulting Lab, Provider Social History Tobacco [...] Info) Description 04/28/2024 14:45 EDT Office Visit [facility] Rheumatology [address] [place] [address] Alan Mann MBBS [address] [place] [address], [facility] [address] [place] [phone] documented as of this encounter Procedures Procedure Name Priority Date/Time Associated Diagnosis Comments HSV (HERPES SIMPLEX VIRUS) MOLECULAR DETECTION, PCR Routine 11/02/2023 17:25 EDT documented in this encounter Results * HSV (HERPES SIMPLEX VIRUS) MOLECULAR DETECTION, PCR (11/02/2023 17:25 EDT) Herpes Simplex Virus Molecular Detection 1, PCR Negative Negative 11/04/2023 9:44 EDT [facility] Herpes Simplex Virus Molecular Detection 2, PCR Negative Negative 11/04/2023 9:44 EDT [facility] Swab ABSCESS MORPHOLOGY / Unknown 11/02/2023 17:25 EDT 11/03/2023 17:42 EDT Provider Outr Resulting Lab MICROBIOLOGY - GENERAL ORDERABLES Performing Organization Address City/State/[facility] Co de Phone Number [facility] [address] [place] [address] documented in this encounter Visit Diagnoses Not on filedocumented in this encounter Care Teams Waste Reduction Coordinator Relationship Specialty Start Date End Date Tim Kim MD [address] [place], [place] [phone] PCP - General 09/03/21 documented as of this encounter
--- OUTSIDE RECORDS SUMMARY | 2024-01-31 10:25 | XMS_ITS | Encounter Summary ---
Author Organization [facility] Address [address] [place] [address] Care Team Providers Care Refinery Operator Vapor Recovery Unit Name Role Phone Unknown, Provider Primary Care Provider [phone] Tim Kim MD Primary Care Provider [phone] Encounter Details Date Type Department Care Team (Late st Contact Info) Description 04/10/2021 Lab Requisition [facility] Pathology & Laboratory Medicine - [address] [address] Outr Resulting Lab, Provider Social History Tobacco [...] Info) Description 04/28/2024 14:45 EDT Office Visit [facility] Rheumatology [address] [place] [address] Alan Mann MBBS 111 [facility], [facility] [address] [place] [phone] documented as of this encounter Procedures Procedure Name Priority Date/Time Associated Diagnosis Comments HIV 1/2 ANTIGEN AND ANTIBODY, 4TH GENERATION Routine 04/10/2021 8:58 EDT documented in this encounter Results * HIV 1/2 ANTIGEN AND ANTIBODY, 4TH GENERATION (04/10/2021 8:58 EDT) HIV 1 and 2 Antibody/p24 Antigen, 4th Generation Negative Negative 04/11/2021 10:18 EDT [facility] Comment: If acute HIV-1 infection is suspected in a high risk ??patient, submit plasma specimen for HIV-1 RNA quantitation test. Fourth Generation assay performed on the Siemens [employer]. Blood VENOUS BLOOD / Unknown 04/10/2021 8:58 EDT 04/10/2021 16:24 EDT Provider Outr Resulting Lab IMMUNOLOGY A ND SEROLOGY ORDERABLES [facility] [address] [place] [address] documented in this encounter Visit Diagnoses Not on filedocumented in this encounter Care Teams Refinery Operator Vapor Recovery Unit Relationship Specialty Start Date End Date Unknown, Provider, PCP - General 04/13/13 09/02/21 Tim Kim MD [address] [place] [address] PCP - General 09/03/21 documented as of this encounter
--- OUTSIDE RECORDS SUMMARY | 2024-01-31 10:25 | XMS_ITS | Encounter Summary ---
Author Organization [facility] [place] [address] Care Team Providers Care Grip Assembler Name Role Phone Tim Kim MD Primary Care Provider [phone] Encounter Details Date Type Department Care Team (Late st Contact Info) Description 10/15/2020 External [place] [address] Samy Mckeon MD [facility] [place] [address] Social History Tobacco Use Types Packs/Day Years Used Date Smoking Tobacco: Never Assessed Sex and Gender Information Value Date Recorded Sex Assigned at Not on file Gender Identity Not on file Sexual Orientation Not on file documented as of this encounter Plan of Treatment Not on file documented as of this encounter Procedures Procedure Name Priority Date/Time Associated Diagnosis Comments EMG SCAN Routine 10/15/2020 documented in this encounter Results * Scan Doc: EMG (10/15/2020) Samy Mckeon MD MEDIA MGR SCAN EXT O RDR/RSLT documented in this encounter Visit Diagnoses Not on filedocumented in this encounter Care Teams Grip Assembler Relationship Specialty Start Date End Date Tim Kim MD [address] [place] [address] PCP - General 05/28/10 documented as of this encounter
--- OUTSIDE RECORDS SUMMARY | 2024-01-31 10:25 | XMS_ITS | Encounter Summary ---
Author Organization [facility] Address [address] [place] [address] Care Team Providers Care Research Animal Facility Supervisor Name Role Phone Unknown, Provider Primary Care Provider [phone] Tim Kim MD Primary Care Provider [phone] Encounter Details Date Type Department Care Team (Late st Contact Info) Description 04/10/2021 Lab Requisition [facility] Pathology & Laboratory Medicine - [address] [address] Outr Resulting Lab, Provider Social History Tobacco [...] Info) Description 04/28/2024 14:45 EDT Office Visit [facility] Rheumatology [address] [place] [address] Alan Mann MBBS 111 [facility], [facility] [address] [place] [phone] documented as of this encounter Procedures Procedure Name Priority Date/Time Associated Diagnosis Comments RUBELLA IGG ANTIBODY Routine 04/10/2021 8:58 EDT VARICELLA IGG ANTIBODY Routine 04/10/2021 8:58 EDT documented in this encounter Results * VARICELLA IGG ANTIBODY (04/10/2021 8:58 EDT) Varicella IgG Ab Positive See Note 04/11/2021 10:06 EDT [facility] Comment:Presence of detectab le Varicella Zoster virus IgG antibodies. Blood VENOUS BLOOD / Unknown 04/10/2021 8:58 EDT 04/10/2021 16:24 EDT Provider Outr Resulting Lab IMMUNOLOGY A ND SEROLOGY ORDERABLES Performing Organization Address [facility] Co de Phone Number [facility] [address] [place] [address] * RUBELLA IGG ANTIBODY (04/10/2021 8:58 EDT) Rubella IgG Ab Negative See Note 04/11/2021 10:11 EDT [facility] Comment:Sample is considered negative for IgG antibodies to Rubella virus. A negative result presumes that immunity has not been acquired. If exposure to Rubella virus is suspected despite a negative finding, a second specimen should be collected and tested for Rubella IgG Ab one or two weeks later. Blood VENOUS BLOOD / Unknown 04/10/2021 8:58 EDT 04/10/2021 16:24 EDT Provider Outr Resulting Lab CHEMISTRY & BLOOD GAS ORDERABLES Performing Organization Address [facility] Co de Phone Number [facility] [address] [place] [address] documented in this encounter Visit Diagnoses Not on filedocumented in this encounter Care Teams Research Animal Facility Supervisor Relationship Specialty Start Date End Date Unknown, Provider, PCP - General 04/13/13 09/02/21 Tim Kim MD [address] [place] [address] PCP - General 09/03/21 documented as of this encounter
--- OUTSIDE RECORDS SUMMARY | 2024-01-31 10:25 | XMS_ITS | Referral Summary ---
Author Organization [facility] Address [address] [place] [address] Care Team Providers Care Production Trainer Name Role Phone Tim Kim MD Primary Care Provider [phone] Encounters Date Type Department Care Team Description 11/04/2023 Lab Requisition [facility] Pathology & Laboratory [address] [address] Outr Resulting Lab, Provider 11/03/2023 Lab Requisition [facility] Pathology & Laboratory [address] [address] Outr Resulting Lab, Provider from Last 3 Months Social History Tobacco Use Types Packs/Day Years Used Date Smoking Tobacco: Never Assessed Sex and Gender Information Value Date Recorded Sex Assigned at Not on file Gender Identity Not on file Sexual Orientation Not on file Plan of Treatment Upcoming Encounters Date Type Department Care Team (Late st Contact Info) Description 04/28/2024 14:45 EDT Office Visit [facility] Rheumatology [address] [place] [address] Alan Mann MBBS 111 [facility], [facility] [address] [place] [address] Procedures Procedure Name Priority Date/Time Associated Diagnosis Comments RHEUMATOID FACTOR Routine 11/04/2023 11: 40 EDT SSA/SSB PANEL Routine 11/04/2023 11:40 EDT ANTI NUCLEAR AB (SHIKHA), IFA Routine 11/04/2023 11:40 EDT HSV (HERPES SIMPLEX VIRUS) MOLECULAR DETECTION, PCR Routine 11/02/2023 17:25 EDT HEPATITIS C AB W REFLEX TO HCV RNA BY PCR Routine 04/10/2021 8:58 EDT from Last 3 Months or Most Recently Relevant to Health Maintenance Results * SSA/SSB PANEL (11/04/2023 11:40 EDT) Ro52 Anitbody, IgG <2.3 <20.0 CU 2023 16:56 EDT [facility] Comment:Results were obtaine d with the [employer] FeintA Flash Ro52 chemiluminescent immunoassay. Values obtained with different manufacturers' assay methods must not be used interchangeably. Ro60 Antibody, IgG <7.0 <20.0 CU 2023 16:56 EDT [facility] Comment:Results were obtaine d with the [employer] FeintA Flash Ro60 chemiluminescent immunoassay. Values obtained with different manufacturers' assay methods must not be used interchangeably. SSB Antibody, IgG <3.3 <20.0 CU 024 16:56 EDT [facility] Comment:Results were obtaine d with the [employer] FeintA Flash SS-B chemiluminescent immunoassay. Values obtained with different manufacturers' assay methods must not be used interchangeably. Blood VENOUS BLOOD / Unknown 11/04/2023 11:40 EDT 11/04/2023 21:29 EDT Provider Outr Resulting Lab IMMUNOLOGY A ND SEROLOGY ORDERABLES [facility] [address] [place] [address] * RHEUMATOID FACTOR (11/04/2023 11:40 EDT) Rheumatoid Factor 10.5 <12.0 IU/mL 11/05/2023 0:15 EDT [facility] Blood VENOUS BLOOD / Unknown 11/04/2023 11:40 EDT 11/04/2023 21:29 EDT Provider Outr Resulting Lab CHEMISTRY & BLOOD GAS ORDERABLES Performing Organization Address [facility]/ZIP Co de Phone Number [facility] [address] [place], [place] [phone] * ANTI NUCLEAR AB (SHIKHA), IFA (11/04/2023 11:40 EDT) Pathologist [facility] SHIKHA Interpretation Negative Negative 2023 14:44 EDT [facility] Comment:No titer performed, SHIKHA Screen is negative. Blood VENOUS BLOOD / Unknown 11/04/2023 11:40 EDT 11/04/2023 21:29 EDT Narrative [facility] - 11/05/2023 14:44 EDT Results were obtained with the INOVA NOVA Lite HEp-2 SHIKHA Kit by indirect immunofluorescence. Provider Outr Resulting Lab IMMUNOLOGY A ND SEROLOGY ORDERABLES Performing Organization Address [facility] Co de Phone Number [facility] [address] [place] [address] * HSV (HERPES SIMPLEX VIRUS) MOLECULAR DETECTION, PCR (11/02/2023 17:25 EDT) [facility] Herpes Simplex Virus Molecular Detection 1, PCR Negative Negative 11/04/2023 9:44 EDT [facility] Herpes Simplex Virus Molecular Detection 2, PCR Negative Negative 11/04/2023 9:44 EDT [facility] Swab ABSCESS MORPHOLOGY / Unknown 11/02/2023 17:25 EDT 11/03/2023 17:42 EDT Provider Outr Resulting Lab MICROBIOLOGY - GENERAL ORDERABLES Performing Organization Address [facility] Co de Phone Number [facility] [address] [place] [phone] * HEPATITIS C AB W REFLEX TO HCV RNA BY PCR (04/10/2021 8:58 EDT) Pathologist [facility] Hep C Antibody Negative Negative 04/11/2021 10:07 EDT [facility] Blood VENOUS BLOOD / Unknown 04/10/2021 8:58 EDT 04/10/2021 16:25 EDT Provider Outr Resulting Lab CHEMISTRY & BLOOD GAS ORDERABLES [facility] [address] [place] [address] from Last 3 Months or Most Recently Relevant to Health Maintenance Care Teams Production Trainer Relationship Specialty Start Date End Date Tim Kim MD [address] [place], [place] [phone] PCP - General 09/03/21
--- OUTSIDE RECORDS SUMMARY | 2024-01-31 10:25 | XMS_ITS | Encounter Summary ---
Author Organization [facility] Address [address] [place] [address] Care Team Providers Care Canvas Worker Name Role Phone Unknown, Provider Primary Care Provider Encounter Details Date Type Department Care Team (Late st Contact Info) Description 04/13/2013 Results Only [facility] Laboratory Services - [facility] ([facility]) [address] [place] [address] Unknown, Provider, Social History Tobacco Use Types Packs/Day Years Used Date Smoking Tobacco: Never Assessed Sex and Gender Information Value Date Recorded Sex Assigned at Not on file Gender Identity Not on file Sexual Orientation Not on file documented as of this encounter Plan of Treatment Upcoming Encounters Date Type Department Care Team (Late st Contact Info) Description 04/28/2024 14:45 EDT Office Visit [facility] - [facility] Rheumatology [address] [place] [address] Alan Mann MBBS 111 [facility], [facility] [address] [place] [phone] documented as of this encounter Procedures Procedure Name Priority Date/Time Associated Diagnosis Comments SCREEN TEST Routine 04/13/2013 16: 03 EDT documented in this encounter Results * SCREEN TEST (04/13/2013 16:03 EDT) Screen Test NEGATIVE [facility] 04/13/2013 16:0 3 EDT Provider Unknown BLOOD BANK TESTS [facility] [address] [place] [address] documented in this encounter Visit Diagnoses Not on filedocumented in this encounter Care Teams Canvas Worker Relationship Specialty Start Date End Date Unknown, Provider, PCP - General 04/13/13 09/02/21 documented as of this encounter
--- OUTSIDE RECORDS SUMMARY | 2024-01-31 10:25 | XMS_ITS | Encounter Summary ---
Author Organization [facility] Address [address] [place] [address] Care Team Providers Care Pensionholder Information Clerk Name Role Phone Unknown, Provider Primary Care Provider [phone] Encounter Details Date Type Department Care Team (Late st Contact Info) Description 12/25/2016 Results Only [facility]- [facility] [phone] Damien Hilton, [facility]- [address] [place] [address] Social History Tobacco Use Types Packs/Day Years Used Date Smoking Tobacco: Never Assessed Sex and Gender Information Value Date Recorded Sex Assigned at Not on file Gender Identity Not on file Sexual Orientation Not on file documented as of this encounter Plan of Treatment Upcoming Encounters Date Type Department Care Team (Late st Contact Info) Description 04/28/2024 14:[address] [facility] - [facility] Rheumatology [address] [place] [address] Alan Mann MBBS 111 [facility], [facility] [address] [place] [address] documented as of this encounter Procedures Procedure Name Priority Date/Time Associated Diagnosis Comments PAP TEST- RESULT ONLY Routine 12/25/2016 0:00 EDT documented in this encounter Results * PAP TEST- RESULT ONLY (12/25/2016 0:00 EDT) Pathology Report: CYTOPATHOLOGY REPORT Reports generated via electronic interface contain original data; however they are lacking the format of the original report. Caution should be taken when reading/interpreti ng unformatted reports. Name: ? RADHA SCHMIDT ? Accession #: ? [id number] : ? 1990 (Age: 26) ??F ?Collect Date: ? 12/25/2016 Location: ? [facility] ? Receive Date: ? 12/29/2016 Provider: ?DAMIEN APODACA BLACK POWDER GLAZING OPERATOR-BC Copy to: ? Specimen/Source: ?Pap Test, Cervix, ThinPrep Imaging System with manual evaluation Last Menstrual Period: ? SPECIMEN ADEQUACY ? Satisfactory for Evaluation - transformation zone component absent GENERAL CATEGORIZATION ? Negative for Intraepithelial Lesion or Malignancy ? Document reviewed and electronically signed by: ? Criss Crooks, CT(ASCP) ? Report Date: ??01/08/2017 08:56 End of Report [facility] 12/25/2016 12/29/2016 Damien Hilton BLACK POWDER GLAZING OPERATOR-BC PATHOLOGY ORDERA BLES [facility] [address] [place] [address] documented in this encounter Visit Diagnoses Not on filedocumented in this encounter Care Teams Pensionholder Information Clerk Relationship Specialty Start Date End Date Unknown, Provider, PCP - General 04/13/13 09/02/21 documented as of this encounter
--- OUTSIDE RECORDS SUMMARY | 2024-01-31 10:25 | XMS_ITS | Clinical Summary ---
Author Organization [facility] Address [address] [place] [address] Care Team Providers Care Plant Superintendent Name Role Phone Tim Kim MD Primary Care Provider [phone] Encounters Date Type Department Care Team Description 11/04/2023 Lab Requisition [facility] Pathology & Laboratory [address] [address] Outr Resulting Lab, Provider 11/03/2023 Lab Requisition [facility] Pathology & Laboratory [address] [address] Outr Resulting Lab, Provider from Last 3 [...] Info) Description 04/28/2024 14:45 EDT Office Visit [facility] Rhe[facility] [address] [place] [address] Alan Mann MBBS 111 [facility], Level [address] [place] [phone] Health Maintenance Due Date Last Done Comments Hepatitis B Vaccine (1 of 3 - 19+ 3-dose series) 08/27 COVID-19 Vaccine ( - 2022- season) 2023 Hepatitis C Screen Completed 04/10/2021 Procedures Procedure Name Priority Date/Time Associated Diagnosis [...] IgG <2.3 <20.0 CU 2023 16:56 EDT [facility] Comment:Results were obtaine d with the EpiphyteA Flash Ro52 chemiluminescent immunoassay. Values obtained with different manufacturers' assay methods must not be used interchangeably. Ro60 Antibody, IgG <7.0 <20.0 CU 2023 16:56 EDT [facility] Comment:Results were obtaine d with the EpiphyteA Flash Ro60 chemiluminescent immunoassay. Values obtained with different manufacturers' assay methods must not be used interchangeably. SSB Antibody, IgG <3.3 <20.0 CU 024 16:56 EDT [facility] Comment:Results were obtaine d with the EpiphyteA Flash SS-B chemiluminescent immunoassay. Values obtained with different manufacturers' assay methods must not be used interchangeably. Blood VENOUS BLOOD / Unknown 11/04/2023 11:40 EDT 11/04/2023 21:29 EDT Provider Outr Resulting Lab IMMUNOLOGY A ND SEROLOGY ORDERABLES [facility] [address] [place] [address] * RHEUMATOID FACTOR (11/04/2023 11:40 EDT) Rheumatoid Factor 10.5 <12.0 IU/mL 11/05/2023 0:15 EDT [facility] Blood VENOUS BLOOD / Unknown 11/04/2023 11:40 EDT 11/04/2023 21:29 EDT Provider Outr Resulting Lab CHEMISTRY & BLOOD GAS ORDERABLES Performing Organization Address City/[facility]/ZIP Co de Phone Number [facility] [address] [place], [place] [address] * ANTI NUCLEAR AB (SHIKHA), IFA (11/04/2023 11:40 EDT) Pathologist [facility] SHIKHA Interpretation Negative Negative 2023 14:44 EDT [facility] Comment:No titer performed, SHIKHA Screen is negative. Blood VENOUS BLOOD / Unknown 11/04/2023 11:40 EDT 11/04/2023 21:29 EDT Narrative [facility] - 11/05/2023 14:44 EDT Results were obtained with the INOVA NOVA Lite HEp-2 SHIKHA Kit by indirect immunofluorescence. Provider Outr Resulting Lab IMMUNOLOGY A ND SEROLOGY ORDERABLES Performing Organization Address [facility] de Phone Number [facility] [address] [place] [phone] * HSV (HERPES SIMPLEX VIRUS) MOLECULAR DETECTION, PCR (11/02/2023 17:25 EDT) Pathologist [facility] Herpes Simplex Virus Molecular Detection 1, PCR Negative Negative 11/04/2023 9:44 EDT [facility] Herpes Simplex Virus Molecular Detection 2, PCR Negative Negative 11/04/2023 9:44 EDT [facility] Swab ABSCESS MORPHOLOGY / Unknown 11/02/2023 17:25 EDT 11/03/2023 17:42 EDT Provider Outr Resulting Lab MICROBIOLOGY - GENERAL ORDERABLES Performing Organization Address [facility]/ZIP Co de Phone Number [facility] [address] [place] [address] * HEPATITIS C AB W REFLEX TO HCV RNA BY PCR (04/10/2021 8:58 EDT) Hep C Antibody Negative Negative 04/11/2021 10:07 EDT [facility] Blood VENOUS BLOOD / Unknown 04/10/2021 8:58 EDT 04/10/2021 16:25 EDT Provider Outr Resulting Lab CHEMISTRY & BLOOD GAS ORDERABLES [facility] [address] [place] [address] from Last 3 Months or Most Recently Relevant to Health Maintenance Care Teams Plant Superintendent Relationship Specialty Start Date End Date Tim Kim MD [address] [place] [address] PCP - General 09/03/21
--- OUTSIDE RECORDS SUMMARY | 2024-01-31 10:25 | XMS_ITS | Encounter Summary ---
Author Organization [facility] Address [address] [place] [address] Care Team Providers Care Parts Counter Representative Name Role Phone Unknown, Provider Primary Care Provider [phone] Tim Kim MD Primary Care Provider [phone] Encounter Details Date Type Department Care Team (Late st Contact Info) Description 04/10/2021 Lab Requisition [facility] Pathology & Laboratory Medicine - [address] [address] Outr Resulting Lab, Provider Social History Tobacco [...] Info) Description 04/28/2024 14:45 EDT Office Visit [facility] Rheumatology [address] [place] [address] Alan Mann MBBS 111 [facility], [facility] [address] [place] [phone] documented as of this encounter Procedures Procedure Name Priority Date/Time Associated Diagnosis Comments HEPATITIS C AB W REFLEX TO HCV RNA BY PCR Routine 04/10/2021 8:58 EDT HEPATITIS B SURFACE ANTIGEN Routine 04/10/2021 8:58 EDT documented in this encounter Results * HEPATITIS B SURFACE ANTIGEN (04/10/2021 8:58 EDT) Hep B Surface Ag Negative Negative 04/11/2021 9:26 EDT [facility] Blood VENOUS BLOOD / Unknown 04/10/2021 8:58 EDT 04/10/2021 16:25 EDT Provider Outr Resulting Lab CHEMISTRY & BLOOD GAS ORDERABLES Performing Organization Address City/[facility]/ZIP Co de Phone Number [facility] [address] [place] [address] * HEPATITIS C AB W REFLEX TO HCV RNA BY PCR (04/10/2021 8:58 EDT) Hep C Antibody Negative Negative 04/11/2021 10:07 EDT [facility] Blood VENOUS BLOOD / Unknown 04/10/2021 8:58 EDT 04/10/2021 16:25 EDT Provider Outr Resulting Lab CHEMISTRY & BLOOD GAS ORDERABLES Performing Organization Address [facility] de Phone Number [facility] [address] [place] [address] documented in this encounter Visit Diagnoses Not on filedocumented in this encounter Care Teams Parts Counter Representative Relationship Specialty Start Date End Date Unknown, MD Lianna PCP - General 04/13/13 09/02/21 Tim Kim MD [address] [place] [address] PCP - General 09/03/21 documented as of this encounter
--- OUTSIDE RECORDS SUMMARY | 2024-01-31 10:25 | XMS_ITS | Encounter Summary ---
Author Organization [facility] Address [address] [place] [address] Care Team Providers Care Licensed Nurse Practitioner Name Role Phone Unknown, Provider Primary Care Provider [phone] Tim Kim MD Primary Care Provider [phone] Encounter Details Date Type Department Care Team (Late st Contact Info) Description 02/07/2020 Lab Requisition [place] Pathology & Laboratory Medicine - [address] [address] Outr Resulting Lab, Provider Social History Tobacco [...] Info) Description 04/28/2024 14:45 EDT Office Visit [facility] Rheumatology [address] [place] [address] Alan Mann MBBS 111 [facility], [facility] [address] [place] [phone] documented as of this encounter Procedures Procedure Name Priority Date/Time Associated Diagnosis Comments ZZCOVID-19 TEST [facility] PCR Today 02/07/2020 17:18 EDT COVID-19 TESTING Routine 02/07/2020 17:1 8 EDT documented in this encounter Results * COVID-19 TEST [facility] PCR (02/07/2020 17:18 EDT) Swab ENTIRE NASOPHARYNX / Unknown 02/07/2020 17:18 EDT 02/07/2020 21:23 EDT Provider Outr Resulting Lab MICROBIOLOGY - GENERAL ORDERABLES Performing Organization Address City/[facility]/ZIP Co de Phone Number [facility] [address] [place] [address] * COVID-19 TESTING (02/07/2020 17:18 EDT) COVID-19 rt-PCR Result Negative Negative 02/08/2020 1:12 EDT [facility] Comment: This test has not been FDA cleared or approved. This test has been authorized by FDA under an EUA for use by authorized laboratories. This test has been authorized only for detection of nucleic acid from 2019-nCoV, not for any other viruses or pathogens. This test is only authorized for the duration of the declaration that circumstances exist justifying the authorization of emergency use of in vitro diagnostic tests for detection and/or diagnosis of 2019-nCoV under section 564(b)(1) of Act, 21 U.S.C ?? 360bbb-3(b) (1), unless the authorization is terminated or revoked sooner. Negative results do not preclude 2019-nCoV infection and should not be used as the sole basis for treatment or other patient management decisions. Negative results must be combined with clinical observations, patient history, and epidemiological information. Performed on the [employer] Fusion instrument Performing Lab [facility] 02/08/2020 1:12 EDT [facility] Swab 02/07/2020 17:1 8 EDT 02/07/2020 21:23 EDT Provider Outr Resulting Lab MICROBIOLOGY - GENERAL ORDERABLES Performing Organization Address City/[facility]/ZIP Co de Phone Number [facility] [address] [place] [address] documented in this encounter Visit Diagnoses Not on filedocumented in this encounter Care Teams Licensed Nurse Practitioner Relationship Specialty Start Date End Date Unknown, Provider, PCP - General 04/13/13 09/02/21 Tim Kim MD [address] [place] [address] PCP - General 09/03/21 documented as of this encounter
--- OUTSIDE RECORDS SUMMARY | 2024-01-31 10:25 | XMS_ITS | Encounter Summary ---
Author Organization [facility] Address [address] [place] [address] Care Team Providers Care Research Professional Name Role Phone Unknown, Provider Primary Care Provider [phone] Tim Kim MD Primary Care Provider Encounter Details Date Type Department Care Team (Late st Contact Info) Description 04/05/2021 Lab Requisition [facility] Pathology & Laboratory Medicine - [address] [address] Outr Resulting Lab, Provider Social History Tobacco [...] Info) Description 04/28/2024 14:45 EDT Office Visit [facility] Rheumatology [address] [place] [address] Alan Mann MBBS 111 [facility], [facility] [address] [place] [phone] documented as of this encounter Procedures Procedure Name Priority Date/Time Associated Diagnosis Comments CHLAMYDIA/N. GONORRHOEAE AMPLIFIED NUCLEIC ACID Routine 04/04/2021 14:15 EDT documented in this encounter Results * CHLAMYDIA/N. GONORRHOEAE AMPLIFIED RNA (04/04/2021 14:15 EDT) Neisseria gonorrhoeae Result Negative Negative 04/08/2021 16:07 EDT [facility] Chlamydia trachomatis Result Negative Negative 04/08/2021 16:07 EDT [facility] Swab ENTIRE WALL OF CERVIX / Unknown 04/04/2021 14:15 EDT 04/05/2021 18:45 EDT Provider Outr Resulting Lab MICROBIOLOGY - GENERAL ORDERABLES Performing Organization Address City/State/[facility] Co de Phone Number [facility] [address] [place] [address] documented in this encounter Visit Diagnoses Not on filedocumented in this encounter Care Teams Research Professional Relationship Specialty Start Date End Date Unknown, Provider, PCP - General 04/13/13 09/02/21 Tim Kim MD [address] [place] [address] PCP - General 09/03/21 documented as of this encounter
--- OUTSIDE RECORDS SUMMARY | 2024-01-31 10:25 | XMS_ITS | Encounter Summary ---
Author Organization [facility] Address [address] [place] [address] Care Team Providers Care Market Development Specialist Name Role Phone Tim Kim MD Primary Care Provider [phone] Encounter Details Date Type Department Care Team (Late st Contact Info) Description 01/09/2022 Lab Requisition [facility] Pathology & Laboratory Medicine [address] [address] Griselda Alonso MD [address] [place] [address] [place] [address] Encounter for sterilization Social History Tobacco Use Types Packs/Day Years Used Date Smoking Tobacco: Never Assessed Sex and Gender Information Value Date Recorded Sex Assigned at Not on file Gender Identity Not on file Sexual Orientation Not on file documented as of this encounter Plan of Treatment Upcoming Encounters Date Type Department Care Team (Late st Contact Info) Description 04/28/2024 14:45 EDT Office Visit [facility] Rheumatology [address] [place] [address] Alan Mann MBBS 111 [facility], [facility] [address] [place] [address] documented as of this encounter Procedures Procedure Name Priority Date/Time Associated Diagnosis Comments SURGICAL PATHOLOGY Today 01/08/2022 11 :40 EDT Encounter for sterilization documented in this encounter Results * SURGICAL PATHOLOGY (01/08/2022 11:40 EDT) Note to Patient The following pathology results have been interpreted by your pathologist and may be available to you before your health provider has had the opportunity to review them. Please allow time for your provider to receive these results and explore management options, if applicable. 01/13/2022 14:36 [facility] Final Diagnosis A. FALLOPIAN TUBE, LEFT, PARTIAL SALPINGECTOMY: - Segment of fallopian tube with no specific pathologic features. - Full cross-sections identified. B. FALLOPIAN TUBE, RIGHT, PARTIAL SALPINGECTOMY: - Segment of fallopian tube with no specific pathologic features. - Full cross-sections identified. 01/13/2022 14:36 [facility] Attestation There was significant resident/fellow involvement in the diagnostic evaluation of this case. By the signature below, the attending physician certifies that they have personally conducted a gross and/or microscopic examination of the described specimens and rendered or confirmed the above diagnosis. 01/13/2022 14:36 [facility] at 1436 Clinical History Desires sterilization 01/13/2022 14:36 [facility] Gross Description A. Received in formalin labelled with proper patient identification (initials N, S) and left fallopian tube are 2 segments of ott-case, tubular tissue (1.5 cm in length by 0.3 cm in diameter and 5.2 cm in length by 0.4 cm in diameter). The serosal surfaces are smooth and ott-case. No fimbria are present. Three sales representative wire rope sections are submitted in A1. B. Received in formalin labelled with proper patient identification (initials N, S) and right fallopian tube is a 5.7 cm in length by 0.5 cm in diameter fimbriated fallopian tube. The serosa is smooth and purple-case. Sectioning reveals a patent, unremarkable lumen. Supervisor Corduroy Cutting sections, to include the bisected fimbria, are submitted in B1-B2. LIZ DOW(ASCP) 01/09/2022 10:02 01/13/2022 14:36 [facility] Resident/Tony w: Florina Lewis DO 01/13/2022 14:36 [facility] Performing Lab [facility] 01/13/2022 14:36 EDT [facility] Scanned Images 01/13/2022 14:36 EDT [facility] Tissue ENTIRE FALLOPIAN TUBE / Unknown 01/08/2022 11:40 EDT 01/09/2022 6:40 EDT Tissue specimen (specimen) FALLOPIAN TUBE STRUCTURE / Unknown 01/08/2022 11:40 EDT 01/09/2022 6:40 EDT Griselda Alonso MD PATHOLOGY ORDERABLES [facility] [address] [place] [address] documented in this encounter Visit Diagnoses Diagnosis Encounter for sterilization Sterilization documented in this encounter Care Teams Market Development Specialist Relationship Specialty Start Date End Date Tim Kim MD [address] [place] [address] PCP - General 09/03/21 documented as of this encounter
--- OUTSIDE RECORDS SUMMARY | 2024-01-31 10:25 | XMS_ITS | Clinical Summary ---
Author Organization [facility] Address [facility] [place] [address] Care Team Providers Care Food Service Technician Name Role Phone Tim Kim MD Primary Care Provider [phone] Allergies Active Allergy Reactions Criticality Noted Date Comments Ibuprofen CIS - Rash Penicillins CIS - Rash Medications Medication Sig Dispensed Refills Start Date End Date Status methylphenidate (CONCERTA) 36 mg CR tablet 06/23/2003 Active lamoTRIgine (LaMICtal) 100 mg Tablet Take 100 mg by mouth daily. Active omeprazole (PriLOSEC) 20 mg Capsule, Delayed Release(E.C.) Take 20 mg by mouth daily. Active topiramate (Topamax) 25 mg Tablet Take 25 mg by mouth 2 times daily. Taking 25mg daily Active sertraline (ZOLOFT) 100 mg Tablet Take 150 mg by mouth daily. Active levonorgestreL (MIRENA) 20 mcg/24 hours (6 yrs) 52 mg IUD 1 each by Intrauterine route Continuous (Device). Expected removal date Active Social History Tobacco Use Types Packs/Day Years Used Date Smoking Tobacco: Never Assessed Sex and Gender Information Value Date Recorded Sex Assigned at Not on file Gender Identity Not on file Sexual Orientation Not on file Last Filed Vital Signs Vital Sign Reading Time Taken Comments Blood Pressure 109/63 10/15/2020 1:11 PM EDT Pulse 73 10/15/2020 1:11 PM EDT Temperature 36.1 ??C (96.9 ??F) 10/15/2020 1:11 PM ED T Respiratory Rate - - Oxygen Saturation 99% 10/15/2020 1:11 PM EDT Inhaled Oxygen Concentration - - Weight - - Height - - Body Mass Index - - Plan of Treatment Health Maintenance Due Date Last Done Comments HIV screen 2010 Hepatitis C Screening 2010 Hepatitis B vaccine (0-59 yrs) (1) 2011 Tdap adult 2011 Tetanus vaccine 2011 HPV test 2022 PAP Smear 2022 Covid-19 Vaccine ( season) 2023 Influenza (Flu) vaccine (1 o f 1 - Influenza standard series) 03/06/2024 Care Teams Food Service Technician Relationship Specialty Start Date End Date Tim Kim MD [address] [place] [address] PCP - General 05/28/10
--- OUTSIDE RECORDS SUMMARY | 2024-01-31 10:25 | XMS_ITS | Encounter Summary ---
Author Organization [facility] Address [address] [place] [address] Care Team Providers Care Clocksmith Name Role Phone Unknown, Provider Primary Care Provider Tim Kim MD Primary Care Provider Encounter Details Date Type Department Care Team (Late st Contact Info) Description 12/17/2020 Lab Requisition [facility] Pathology & Laboratory Medicine - [address] [address] Pam Means MD 111 [facility] 4 [place] [id number] Encounter for other general examination Social History [...] Info) Description 04/28/2024 14:45 EDT Office Visit [facility] Rheumatology [address] [place] [id number] Alan Mann MBBS 111 [facility] 5 [place] [address] documented as of this encounter Procedures Procedure Name Priority Date/Time Associated Diagnosis Comments PAP TEST Today 12/14/2020 9:10 EDT Encounter for other general examination documented in this encounter Results * PAP TEST (12/14/2020 9:10 EDT) Specimens A. Cervix and/or Endocervix , ThinPrep Imaging System with Manual Evaluation 12/25/2020 10:17 EDT [facility] Specimen Adequacy Satisfactory for Evaluation - transformation zone component present 12/25/2020 10:17 EDT [facility] General Categorization Negative for intraepithelial lesion or malignancy 12/25/2020 10:17 EDT [facility] Attestation . 12/25/2020 10:17 EDT [facility] at 1017 Clinical History See below 12/26/19 10:17 EDT [facility] Performing Lab [facility] 12/25/2020 10:17 T [facility] Scanned Images 12/25/2020 10:17 EDT [facility] Papanicolaou smear specimen (specimen) CERVIX UTERI STRUCTURE / Unknown 12/14/2020 9:10 EDT 12/17/2020 15:30 EDT Pam Means MD PATHOLOGY ORDERAB LES [facility] [address] [place] [address] documented in this encounter Visit Diagnoses Diagnosis Encounter for other general examination documented in this encounter Care Teams Clocksmith Relationship Specialty Start Date End Date Unknown, Provider, PCP - General 04/13/13 09/02/21 Tim Kim MD [address] [place] [address] PCP - General 09/03/21 documented as of this encounter
--- OUTSIDE RECORDS SUMMARY | 2024-01-31 10:25 | XMS_ITS | Encounter Summary ---
Author Organization [facility] Address [address] [place] [address] Care Team Providers Care Telephone Sex Worker Name Role Phone Unknown, Provider Primary Care Provider [phone] Tim Kim MD Primary Care Provider Encounter Details Date Type Department Care Team (Late st Contact Info) Description 07/20/2020 Lab Requisition [facility] Pathology & Laboratory Medicine - [address] [address] Outr Resulting Lab, Provider Social History Tobacco [...] Info) Description 04/28/2024 14:45 EDT Office Visit [facility] Rheumatology [address] [place] [address] Alan Mann MBBS 111 [facility] 5 [place] [address] documented as of this encounter Procedures Procedure Name Priority Date/Time Associated Diagnosis Comments SPEP, INCLUDES QUANTITATION OF MONOCLONAL SPIKE Routine 07/20/2020 10:45 EST documented in this encounter Results * SPEP, INCLUDES QUANTITATION OF MONOCLONAL SPIKE (07/20/2020 10:45 EST) Total Protein 7.3 6.3 - 8.2 g/dL 07/23/2020 12:38 [facility] Albumin % 61.2 55.8 - 66.1 % 07/23/2020 12:38 [facility] Alpha-1 % 4.3 2.9 - 4.9 % 07/23/2020 12:38 [facility] Alpha-2 % 10.1 7.1 - 11.8 % 07/23/2020 12:38 [facility] Beta % 9.9 8.4 - 13.1 % 07/23/2020 12:38 [facility] Gamma % 14.5 11.1 - 18.8 % 07/23/2020 12:38 [facility] SPEP Comment No apparent monoclonal protein seen on serum electrophoresis 07/23/2020 12:38 [facility] Comment:See scanned/suppleme ntary report. Blood VENOUS BLOOD / Unknown 07/20/2020 10:45 EST 07/20/2020 21:02 EST Provider Outr Resulting Lab CHEMISTRY & BLOOD GAS ORDERABLES [facility] [address] [place] [address] documented in this encounter Visit Diagnoses Not on filedocumented in this encounter Care Teams Telephone Sex Worker Relationship Specialty Start Date End Date Unknown, MD Lianna PCP - General 04/13/13 09/02/21 Tim Kim MD [address] [place] [address] PCP - General 09/03/21 documented as of this encounter
--- NOTE | 2024-01-31 11:01 | ED.GENADUL_ITS ---
Discharge Plan Disposition Patient Disposition: Home Condition: Stable Discharge Details Chief Complaint: EyeProblem Clinical Impression: Eye pain, Vision changes Primary Care Provider: Avis Koch ED Provider: Bartolome Blanco Home Meds and New Rx's Prescriptions: No Action lamotrigine 100 mg tablet 150 mg PO DAILY Aimovig Autoinjector 140 mg/mL auto-injector 140 mg subcut QMONTH Qty: 1 11RF naratriptan 2.5 mg tablet See Rx Instructions PO .COMPLEX Qty: 12 3RF Rx Instructions: take 1 tab at onset of headache; if no relief may repeat 1 tab after at least 4 hrs; max = 2 tabs/24 hrs PO lorazepam 0.5 mg tablet 0.5 mg PO ONCE PRN (Reason: anxiety/claustrophobia) Qty: 2 0RF Rx Instructions: Take one tablet 30min prior to MRI. Ok to take second at time of MRI if still anxious. Do not drive after taking. Viibryd 10 mg (7)- 20 mg (23) tablets,dose pack 40 dose pk PO DIRECTED Patient Comments: TAKE ONE BY MOUTH EVERY DAY WITH FOOD Discharge Instructions Instructions: Multiple sclerosis in adults, Optic neuritis Additional Instructions: Please follow-up closely with your neurologist. Please return on Thursday for MRI brain/orbits. Please return sooner for any worsening symptoms HPI General Date/Time Provider Initiated Documentation: 01/31/24 10:28 . HPI Narrative: 33-year-old female history of migraines presents with pain surrounding her left eye pressure-like sensation over the last 4 days associated with some blurring of vision. Patient has had migraine auras in the past. Denies any other systemic signs of illness. Of note patient does have a family history of optic neuritis in her mother Related Data Home Medications ?Medication ?Instructions ?Recorded ?Confirmed lamotrigine 100 mg tablet 150 mg PO DAILY 03/25/23 11/16/23 vilazodone 10 mg (7)-20 mg (23) 40 dose pk PO DIRECTED 03/25/23 11/16/23 tablets in a titration pack (Viibryd) erenumab-aooe 140 mg/mL 140 mg subcut QMONTH #1 mL 09/15/23 11/16/23 subcutaneous auto-injector (Aimovig Autoinjector) naratriptan 2.5 mg tablet See Rx Instructions PO .COMPLEX 09/15/23 11/16/23 #12 tabs lorazepam 0.5 mg tablet 0.5 mg PO ONCE PRN 09/22/23 11/16/23 anxiety/claustrophobia #2 tabs Previous Rx's ?Medication ?Instructions ?Recorded erenumab-aooe 140 mg/mL 140 mg subcut QMONTH #1 mL 09/15/23 subcutaneous auto-injector (Aimovig Autoinjector) naratriptan 2.5 mg tablet See Rx Instructions PO .COMPLEX 09/15/23 #12 tabs lorazepam 0.5 mg tablet 0.5 mg PO ONCE PRN 09/22/23 anxiety/claustrophobia #2 tabs Allergies Allergy/AdvReac Type Severity Reaction Status Date / Time ibuprofen Allergy Severe Skin Rash Verified 11/16/23 09:09 paroxetine (From Paxil) Allergy Severe throat Verified 11/16/23 09:09 swells penicillin G Allergy Severe Anaphylaxis Verified 11/16/23 09:09 codeine Allergy Intermediate HIVES Verified 11/16/23 09:09 General Stated Complaint: EyeProblem FRITZ: 3 Exam Narrative Exam Narrative: Resting and with no acute distress Pupils equal round reactive to light, negative fluorescein stain, no proptosis no surrounding cellulitis or induration, extraocular motion without evidence of entrapment intact, no lacrimation or conjunctival injection Cranial nerves intact 5-5 strength upper and lower extremities, sensation intact, ambulatory without assistance Speaking full senses no respiratory distress No rashes or lesions appreciated to skin Course Vital Signs Vital signs: Vital Signs Temperature 36.3 C L 01/31/24 10:23 Pulse 85 01/31/24 10:23 Respiratory Rate 16 01/31/24 10:23 Blood Pressure 113/78 01/31/24 10:23 Pulse Oximetry 100 01/31/24 10:23 Temperature 36.3 C L 01/31/24 10:23 Temperature Source Tympanic 01/31/24 10:23 Pulse 85 01/31/24 10:23 Respiratory Rate 16 01/31/24 10:23 Respiratory Effort Normal 01/31/24 10:45 Blood Pressure 113/78 01/31/24 10:23 Blood Pressure Position Sitting 01/31/24 10:23 Pulse Oximetry 100 01/31/24 10:23 Oxygen Delivery Method Room Air 01/31/24 10:23 Oxygen Flow Rate 0 01/31/24 10:23 Pain Level 7 01/31/24 10:23 Medical Decision Making 33-year-old female presents with discomfort surrounding her left eye pressure- like in nature, associated with some blurring of her vision, history of migraines with aura, family history of optic neuritis in her mother vision OS 20/30 OD 20/20 bilaterally 20/20, no conjunctival injection, no lacrimation, no evidence of corneal abrasion or ulceration examination, no proptosis, patient has normal extraocular motion and pupillary reflex, remaining neurologic examination intact without deficit, consider migraine with aura versus tension type headache versus ocular migraine muscles consider optic neuritis no evidence of CVA no evidence of conjunctivitis ocular trauma ulceration or abrasion trial of Reglan dexamethasone close reassessment symptomatology. Patient does follow with neurology Dr. Kiran. Will consider further evaluation with labs and possible imaging if patient does not have improvement after medication. 12: 23 no improvement of symptomatology after medication. Will obtain IV access and imaging of brain 14: 50 patient resting comfortably no acute distress. Evidence of hypomagnesemia will replete. Awaiting results of CTA head and neck 15: 15 patient resting comfortably no acute distress. Still with persistent symptomatology. CTA head and neck unremarkable. Discussed with patient consulting neurology team and pursuing possible transfer for MRI to rule out optic neuritis versus less likely MS, however patient has important engagement tomorrow as her son is undergoing surgery at [facility]. She would like to go home and follow-up closely with her neurology team I have given her a outpatient MRI form to obtain MRI brain/orbits for Thursday when she is available given strict return precautions for any worsening symptoms. Quality:SDOH Health Related Social Needs: No Data to Display PFSH All Active Problems (Updated 01/31/24 @ 15:17 by Bartolome Blanco MD) Vision changes (Acute) Eye pain (Acute) Right leg weakness (Acute) Right ankle instability (Acute) URI, acute (Acute) COVID (Acute) Migraine headache without aura (Acute) Migraine headache with aura (Acute) Migraine with status migrainosus (Acute) 10/22/21. prophylactic medication changed to Propranalol 20mg BID. Pt will f/u with Dr. Nunez Encounter for sterilization (Acute) Depression with anxiety (Chronic) Leg pain (Acute) Idiopathic small fiber peripheral neuropathy (Acute) Medical History Sterilization consult Fibromyalgia History of prior with SGA History of anorexia nervosa History of penicillin allergy Family history of thyroid disease in mother Mother had thyroidectomy as well as MGM PTSD (post-traumatic stress disorder) Pt. states nothing is a potential trigger Suicidal ideation history of SI ADHD Opioid dependence No MAT for 6 years Tobacco use Hx of varicella Acute recurrent otitis media Idiopathic peripheral neuropathy Surgical History Status post primary low transverse section 10/20/2021. Arrest of labor. No significant past surgical history Family History Mother Devic's syndrome Headache Sister Cancer bone marrow cancer Social History Smoking/Tobacco Use Status: Current-Occasional Tobacco Type: e-cigarettes Smoking risk assessment performed?: Yes Alcohol Intake: current Alcohol Intake frequency: a few times a month Alcohol type: beer Drug use: Rarely Substance use type: marijuana Details: last time smoked over a year per pt. Adopted: No Household members: children Housing: house Number of Children: 2 current occupation: [employer] working Pets and animals: Yes (hermit crab) Current gender identity: female What is your relationship status?: never Panel score (0-1 are the most socially isolated patients): 0 What type of physical activity do you participate in: none Seatbelt use: sometimes Do you feel safe at home: Yes Do you feel safe in your relationship?: Yes History History 2 Para 2 Hx # Term Pregnancies 2 Multiple births 0 Hx # Pregnancies 0 Ectopic pregnancies 0 AB induced 0 Hx Number of Living Children 2 AB spontaneous 0 Past Pregnancies Del. Date GA/Weeks # Preg Succ Route Wgt Sex Labor Lgth Anesth esia Location Prov Complic 04/11/13 40 No vaginal 2409.709 g Female 14 regional Anea 10/20/21 39 No 4082.331 g Male Ganesh Hernandez Delivery Date: 04/11/13 Last Updated by: Leilani Putnam CNM SGA, Rachelle Delivery Date: 10/20/21 Last Updated by: ARI Hunter
[2024-01-31] MEDS: Tetracaine 0.5% 4 ML BTL (11:12)
[2024-01-31] MEDS: Dexamethasone 10 MG/ML VIAL PO (11:12)
[2024-01-31] MEDS: Metoclopramide 10 MG TAB PO (11:12)
[2024-01-31 12:55] LABS: Abs Immature Grans 0.04 10^3/uL (0.0-0.06); Absolute Basophil Count 0.04 10^3/uL (0.0-0.2); Absolute Eosinophil Count 0.05 10^3/uL (0.0-0.7); Absolute Lymphocyte Count 1.49 10^3/uL (1.2-3.4); Absolute Monocyte Count 0.27 10^3/uL (0.1-0.8); Absolute Neutrophil Count 7.31 10^3/uL (1.2-6.7); Basophils % 0.4 %; Eosinophils % 0.5 %; HGB 13.8 g/dL (11.2-15.7); Immature Grans % 0.4 %; Lymphocytes % 16.2 %; MCH 31.4 pg (27.0-33.0); MCHC 34.5 % (32.0-36.0); MCV 91 fL (80-95); MPV 10.1 fL (8.0-11.0); Monocytes % 2.9 %; Neutrophils % 79.6 %; Platelet Count 172 10^3/uL (130-400); RBC 4.39 10^6/uL (3.93-5.22); RDW 11.9 % (11.7-14.6); RDW-SD 40.1 fL
[2024-01-31 13:09] LABS: INR 1.1 (0.9-1.1); PTT Activated 27.6 sec (23.6-32.8); Prothrombin Time 11.1 sec (9.1-11.1)
[2024-01-31 13:12] LABS: ALT 20 U/L (14-59); AST 14 U/L (15-37); Albumin 3.9 g/dL (3.4-5.0); Alkaline Phosphatase 60 U/L (46-116); Anion Gap 6.3 mmol/L (3-11); BUN 14 mg/dL (7-18); Bilirubin, Total 0.42 mg/dL (0.2-1.0); CO2 28.7 mmol/L (21.0-32.0); CREATININE 0.8 mg/dL (0.55-1.02); Calcium 8.7 mg/dL (8.5-10.1); Chloride 104 mmol/L (98-107); Estimated GFR 100.96 (mL/min/1.73m2); Glucose 97 mg/dL (74-106); Magnesium 1.7 mg/dL (1.8-2.4); Potassium 4.1 mmol/L (3.5-5.1); Sodium 139 mmol/L (136-145); Total Protein 7.1 g/dL (6.4-8.2)
[2024-01-31] MEDS: Omnipaque 350 MG/ML 100 ML BTL IJ (13:45)
[2024-01-31] MEDS: Normal Saline - Diluent 50 ML VIAL IJ (14:04)
--- NOTE | 2024-01-31 14:05 | DI.CT_ITS ---
Exam(s) CT BRAIN NECK CTA EXAM: CT BRAIN NECK CTA CLINICAL HISTORY: left eye vision blurred, eye pain, fam hx neuritis. TECHNIQUE: Imaging Protocol: Axial CT angiography was performed with multi-slice acquisition and mu lti-planar and MIP reconstructions. CONTRAST MATERIAL: Intravenous: Omnipaque 350 Contrast volume:100 ml COMPARISON: MR MR BRAIN WO from 10/06/2023 FINDINGS: CT Head W/O and W contrast: Ventricles and Extra axial spaces: Normal in size and morphology for the patient's age. Hemorrhage: None. Cerebral parenchyma: No evidence of acute infarct or mass. Midline shift: None. Brainstem/Cerebellum: No acute findings.. Calvarium: Normal. Visualized Paranasal sinuses/Mastoids: Clear. Soft Tissues: Unremarkable. Enhancement: Normal. CTA Brain W: Internal Carotid Arteries: Petrous: Normal. Cavernous: Normal. Cerebral: Normal. Middle Cerebral Arteries: Right: No aneurysm, occlusion or significant stenosis. Left: No aneurysm, occlusion or significant stenosis. Anterior Cerebral Arteries: Right: No aneurysm, occlusion or significant stenosis. Left: No aneurysm, occlusion or significant stenosis. Posterior cerebral Arteries: Right: No aneurysm, occlusion or significant stenosis. Left: No aneurysm, occlusion or significant stenosis. Vertebral Arteries: Right: No aneurysm, occlusion or significant stenosis. Left: No aneurysm, occlusion or significant stenosis. Basilar Artery: No aneurysm, occlusion or significant stenosis. CTA Neck W: Common Carotid: Right: No dissection, occlusion or significant stenosis. Left: No dissection, occlusion or significant stenosis. External Carotid: Right: No dissection, occlusion or significant stenosis. Left: No dissection, occlusion or significant stenosis. Internal Carotid: Right: No dissection, occlusion or significant stenosis. Left: No dissection, occlusion or significant stenosis. Vertebral Artery: Right: No dissection, occlusion or significant stenosis. Left: No dissection, occlusion or significant stenosis. Lung Apices: No acute findings. Bones: No acute abnormality. Soft Tissues: Normal. IMPRESSION: 1. CTA brain: Normal CTA examination of the [place] of [place]. 2. Head CT: Unremarkable CT Head. 3. CTA neck: Normal CTA examination of the neck. RADIATION DOSE DELIVERED: Total DLP DATA REPOSITORY: All CT scans at this facility are submitted to the National Radiology Data Registry (NRDR) Dose Index Registry (DIR) with the [employer] (ACR). RADIATION OPTIMIZATION: All CT scans at this facility use at least one of these dose optimization te chniques: automated exposure control; mA and/or kV adjustment per patient size (includes targeted exa ms where dose is matched to clinical indication); or iterative reconstruction.
[2024-01-31] MEDS: MAGNESIUM SULFATE 1 GM/100 ML BAG IVINF (14:12)
--- NOTE | 2024-01-31 15:02 | DI.VRAD_ITS ---
PROCEDURE INFORMATION: Exam: CTA Head Without And With Contrast, Arteriography Exam date and time: 01/31/2024 1:47 PM Age: 33 years old Clinical indication: Weakness and other: Left eye vision blurred, eye pain, fam HX of neuritis TECHNIQUE: Imaging protocol: Initial unenhanced images were obtained through the brain to determine presence or absence of acute hemorrhage prior to IV contrast administration. Computed tomographic angiography of the head without and with contrast. Exam focused on the arteries. 3D rendering (Not supervised by radiologist): MIP and/or 3D reconstructed images were created by the technologist. Contrast material: OMNIPAQUE 350; Contrast volume: 100 ml; Contrast route: INTRAVENOUS (IV); COMPARISON: MR BRAIN WO 10/06/2023 9:28 AM FINDINGS: Unenhanced images show no acute intracranial hemorrhage or abnormal intracranial mass effect. There are no subdural collections. No Chiari malformation. The ventricles are normal size and position. Internal carotid: Intracranial segments of bilateral internal carotid arteries are patent without flow limiting stenosis. Anterior cerebral: Proximal anterior cerebral arteries bilaterally are patent without evidence of flow-limiting stenosis. Middle cerebral: Bilateral proximal middle cerebral arteries are patent without flow-limiting stenosis or occlusion. There is grossly symmetric appearance of branch vessels within the sylvian fissures. Posterior cerebral: Bilateral proximal posterior cerebral arteries are patent without flow-limiting stenosis or occlusion. . Vertebrobasilar: Basilar artery is patent without flow-limiting stenosis. Intracranial segments of both vertebral arteries are patent without flow-limiting stenosis. Venous sinuses: Major dural venous sinuses are patent without evidence of thrombus. IMPRESSION: 1. CTA head demonstrates no intracranial large vessel occlusion or flow-limiting stenosis. 2. No acute intracranial hemorrhage or mass effect identified. 3. If there is clinical concern for optic neuritis, consider MRI brain, specifically to include coronal stir sequence through the orbits. PROCEDURE INFORMATION: Exam: CTA Neck Without And With Contrast Exam date and time: 01/31/2024 1:47 PM Age: 33 years old Clinical indication: Weakness and other: Left eye vision blurred, eye pain, fam HX of neuritis TECHNIQUE: Imaging protocol: Computed tomographic angiography of the neck without and with contrast. Exam focused on the cervical segments of the vasculature. 3D rendering (Not supervised by radiologist): MIP and/or 3D reconstructed images were created by the technologist. Radiation optimization: All CT scans at this facility use at least one of these dose optimization techniques: automated exposure control; mA and/or kV adjustment per patient size (includes targeted exams where dose is matched to clinical indication); or iterative reconstruction. Contrast material: OMNIPAQUE 350; Contrast volume: 100 ml; Contrast route: INTRAVENOUS (IV); COMPARISON: MR BRAIN WO 10/06/2023 9:28 AM FINDINGS: Aortic arch: No significant stenosis of the great vessels at their origins from the aortic arch. Right carotid: Right common, internal, and external carotid arteries in the neck show no flow-limiting stenosis or occlusion or evidence of dissection. Left carotid: Left common, internal, and external carotid arteries in the neck are patent without flow-limiting stenosis or evidence of dissection. Left vertebral: Left vertebral artery is patent without flow-limiting stenosis or dissection. Right vertebral: Right vertebral artery is patent without evidence of flow-limiting stenosis or dissection. Soft tissues: No acute abnormality of the neck soft tissues is seen. IMPRESSION: CTA Neck shows no occlusion or severe stenosis of the extracranial cerebrovascular circulation. REFERENCES: NASCET CRITERIA. The degree of stenosis in the cervical segment of the internal carotid artery is based on NASCET criteria. Normal is no stenosis. Mild is less than 50% stenosis. Moderate is 50-69% stenosis. Severe is 70% to 99% stenosis. Total occlusion is no detectable patent lumen. Dictated and Authenticated by: Ashwin Nichole MD. Ordering:JOEL Mancuso MD
--- NOTE | 2024-01-31 15:13 | NUR.NOTE ---
Referral faxed to Neurology for a follow up visit in 1 week for painful blurry vision
[2024-01-31 15:29] VITALS: BP 115/76; PULSE 80; RESP 16; TEMP 36.8; O2SAT 99
[2024-01-31 15:30] VITALS: BP 115/76; PULSE 80; RESP 16; TEMP 36.8; O2SAT 99
--- NOTE | 2024-02-04 12:05 | NUR.NOTE ---
Dr. Kumar's office called requesting lab results from this patient's visit from 01/31/24. Labs faxed per request.
== END 2024-01-31 15:30 | disposition home or self-care (01) ==
PROVIDERS: Emergency Provider Emergency Medicine; PCP Nurse Practitioner Family
DX: H57.12 Ocular pain, left eye (principal); H53.8 Other visual disturbances; Z86.69 Personal history of other diseases of the nervous system and sense organs
CPT/HCPCS: 36415; 70496; 70498; 80053; 96365; 99284; 83735; 85025; 85610; 85730; 99283; J1100; J3475; J3490

== ENCOUNTER 2024-02-01 21:11 | Emergency (ER) | payer MEDICAID, SELFPAY ==
[2024-02-01 21:17] VITALS: BP 111/67; PULSE 72; RESP 16; TEMP 36.6; O2SAT 98
--- OUTSIDE RECORDS SUMMARY | 2024-02-01 21:22 | XMS_ITS | Encounter Summary ---
Author Organization [facility] Address [address] [place] [address] Care Team Providers Care Fire Fighter [employer] Name Role Phone Tim Kim MD Primary Care Provider [phone] Encounter Details Date Type Department Care Team (Late st Contact Info) Description 01/09/2022 Lab Requisition [facility] Pathology & Laboratory Medicine [address] [address] Griselda Alonso MD [address] [place] [address] [place] [address] Encounter for sterilization Social History [...] Info) Description 04/28/2024 14:45 EDT Office Visit [facility] Rheumatology [address] [place] [address] Alan Mann MBBS 111 [facility], [facility] [address] [place] [address] documented as of this encounter [...] explore management options, if applicable. 01/13/2022 14:36 [facility] Final Diagnosis A. FALLOPIAN TUBE, LEFT, PARTIAL SALPINGECTOMY: - Segment of fallopian tube with no specific pathologic features. - Full cross-sections identified. B. FALLOPIAN TUBE, RIGHT, PARTIAL SALPINGECTOMY: - Segment of fallopian tube with no specific pathologic features. - Full cross-sections identified. 01/13/2022 14:36 [facility] Attestation There was significant resident/fellow involvement in the diagnostic evaluation of this case. By the signature below, the attending physician certifies that they have personally conducted a gross and/or microscopic examination of the described specimens and rendered or confirmed the above diagnosis. 01/13/2022 14:36 [facility] at 1436 Clinical History Desires sterilization 01/13/2022 14:36 [facility] Gross Description A. Received in formalin labelled with proper patient identification (initials N, S) and left fallopian tube are 2 segments of ott-case, tubular tissue (1.5 cm in length by 0.3 cm in diameter and 5.2 cm in length by 0.4 cm in diameter). The serosal surfaces are smooth and ott-case. No fimbria are present. Three data entry representative sections are submitted in A1. B. Received in formalin labelled with proper patient identification (initials N, S) and right fallopian tube is a 5.7 cm in length by 0.5 cm in diameter fimbriated fallopian tube. The serosa is smooth and purple-case. Sectioning reveals a patent, unremarkable lumen. Front Desk Agent sections, to include the bisected fimbria, are submitted in B1-B2. LIZ DOW(ASCP) 01/09/2022 10:02 01/13/2022 14:36 [facility] Resident/Tony w: Florina Lewis DO 01/13/2022 14:36 [facility] Performing Lab [facility] 01/13/2022 14:36 EDT [facility] Scanned Images 01/13/2022 14:36 EDT [facility] Tissue ENTIRE FALLOPIAN TUBE / Unknown 01/08/2022 11:40 EDT 01/09/2022 6:40 EDT Tissue specimen (specimen) FALLOPIAN TUBE STRUCTURE / Unknown 01/08/2022 11:40 EDT 01/09/2022 6:40 EDT Griselda Alonso MD PATHOLOGY ORDERABLES [facility] [address] [place] [address] documented in this encounter Visit Diagnoses Diagnosis Encounter for sterilization Sterilization documented in this encounter Care Teams [employer] Relationship Specialty Start Date End Date Tim Kim MD [address] [place] [address] PCP - General 09/03/21 documented as of this encounter
--- OUTSIDE RECORDS SUMMARY | 2024-02-01 21:22 | XMS_ITS | Encounter Summary ---
Author Organization [facility] Address [address] [place] [address] Care Team Providers Care Rn Documentation Name Role Phone Tim Kim MD Primary Care Provider [phone] Encounter Details Date Type Department Care Team (Late st Contact Info) Description 10/21/2021 Lab Requisition [facility] Pathology & Laboratory Medicine [address] [address] Leilani Hampton, ACCESS LIAISON [address] [place] [address] [phone] Encounter for other general examination Social History [...] Info) Description 04/28/2024 14:45 EDT Office Visit [facility] Rheumatology [address] [place] [address] Alan Mann MBBS 111 [facility], [facility] 5 [place] [phone] documented as of this encounter Procedures Procedure Name Priority Date/Time Associated Diagnosis Comments SCREEN TEST Today 10/21/2021 6:30 EDT Encounter for other general examination documented in this encounter Results * SCREEN TEST (10/21/2021 6:30 EDT) Screen Test NEGATIVE 022 17:54 EDT [facility] Comment:CALLED RESULTS ARUN AT [facility] 10/21/21 @ 17:50. FAXED TO LAB @ [phone] Blood VENOUS BLOOD / Unknown 10/21/2021 6:30 EDT 10/21/2021 17:14 EDT Leilani Hampton APN BLOOD BANK TESTS Performing Organization Address City/State/[facility] Co de Phone Number [facility] 111 [facility] [place] [address] documented in this encounter Visit Diagnoses Diagnosis Encounter for other general examination documented in this encounter Care Teams Rn Documentation Relationship Specialty Start Date End Date Tim Kim MD [address] [place] [address] PCP - General 09/03/21 documented as of this encounter
--- OUTSIDE RECORDS SUMMARY | 2024-02-01 21:22 | XMS_ITS | Encounter Summary ---
Author Organization [facility] Address [address] [place] [address] Care Team Providers Care National Sales Name Role Phone Unknown, Provider Primary Care Provider [phone] Tim Kim MD Primary Care Provider Encounter Details Date Type Department Care Team (Late st Contact Info) Description 12/17/2020 Lab Requisition [facility] Pathology & Laboratory Medicine - [address] [address] Pam Means MD 111 [facility] 4 [place] [phone] Encounter for other general examination Social History [...] Info) Description 04/28/2024 14:45 EDT Office Visit [facility] Rheumatology [address] [place] [address] Alan Mann MBBS 111 [facility] 5 [place] [address] documented as of this encounter Procedures Procedure Name Priority Date/Time Associated Diagnosis Comments PAP TEST Today 12/14/2020 9:10 EDT Encounter for other general examination documented in this encounter Results * PAP TEST (12/14/2020 9:10 EDT) Specimens A. Cervix and/or Endocervix , ThinPrep Imaging System with Manual Evaluation 12/25/2020 10:17 EDT [facility] Specimen Adequacy Satisfactory for Evaluation - transformation zone component present 12/25/2020 10:17 EDT [facility] General Categorization Negative for intraepithelial lesion or malignancy 12/25/2020 10:17 EDT [facility] Attestation . 12/25/2020 10:17 EDT [facility] at 1017 Clinical History See below 12/26/19 10:17 EDT [facility] Performing Lab [facility] 12/25/2020 10:17 T [facility] Scanned Images 12/25/2020 10:17 EDT [facility] Papanicolaou smear specimen (specimen) CERVIX UTERI STRUCTURE / Unknown 12/14/2020 9:10 EDT 12/17/2020 15:30 EDT Pam Means MD PATHOLOGY ORDERAB LES [facility] [address] [place] [address] documented in this encounter Visit Diagnoses Diagnosis Encounter for other general examination documented in this encounter Care Teams National Sales Relationship Specialty Start Date End Date Unknown, Provider, PCP - General 04/13/13 09/02/21 Tim Kim MD [address] [place] [address] PCP - General 09/03/21 documented as of this encounter
--- OUTSIDE RECORDS SUMMARY | 2024-02-01 21:22 | XMS_ITS | Encounter Summary ---
Author Organization [facility] Address [address] [place] [address] Care Team Providers Care Composition Mixer Name Role Phone Tim Kim MD Primary Care Provider [phone] Encounter Details Date Type Department Care Team (Late st Contact Info) Description 10/21/2021 Lab Requisition [facility] Pathology & Laboratory Medicine - [address] [address] Jerica Hernandez [address] [place] [address] [place] [address] Encounter for other general examination [...] Info) Description 04/28/2024 14:45 EDT Office Visit [facility] Rheumatology [address] [place] [address] Alan Mann MBBS 111 [facility], [facility] 5 [place] [phone] documented as of this encounter Procedures Procedure [...] explore management options, if applicable. 10/30/2021 16:27 [facility] Final Diagnosis A. PLACENTA: Cordero [...] - No significant histopathologic changes. 10/30/2021 16:27 [facility] Diagnosis Comment Diagnostic rangel - [...] smooth muscle. Sandoval MATHIAS, Edith Dasilva (2020). Benson of Placental Pathology. AFIP Atlases of Tumor and non-Tumor Pathology (Series 5). [employer]; [place], [place]. Adapted from Nestor RW, Shubham O, Carolina D, Frances F, Magalie V, Corey Arenas; Society for Pediatric Pathology, Section, Amniotic Fluid Infection Nosology Committee. 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 Pediatr Dev Pathol. 2002-Apr;6(5):435-4 8. 10/30/2021 16:27 [facility] Attestation By the signature below, the attending physician certifies that they have 1) personally conducted a gross and/or microscopic examination of the described specimen(s), and/or personally interpreted the results of laboratory testing of the described specimen(s), and 2) personally rendered or confirmed the above diagnosis. 10/30/2021 16:27 [facility] at 1627 Clinical History Active labor, 38.6 weeks 10/30/2021 16:27 [facility] Gross Description A. Received in [...] and has a partly gelatinous cut surface. Hall Clerk sections are submitted as follows: BLOCK RANGEL [...] LIZ ASHLEY(ASCP) 10/22/2021 14:27 10/30/2021 16:27 EDT [facility] Performing Lab [facility] 16:27 EDT [facility] Scanned Images 10/30/2021 16:27 EDT [facility] Tissue PLACENTAL STRUCTURE / Unknown 10/20/2021 21:46 EDT 10/21/2021 17:21 EDT Jerica Hernandez PATHOLOGY ORDERABLES [facility] [address] [place] [address] documented in this encounter Visit Diagnoses Diagnosis Encounter for other general examination documented in this encounter Care Teams Composition Mixer Relationship Specialty Start Date End Date Tim Kim MD [address] [place] [address] PCP - General 09/03/21 documented as of this encounter
--- OUTSIDE RECORDS SUMMARY | 2024-02-01 21:22 | XMS_ITS | Encounter Summary ---
Author Organization [facility] Address [address] [place] [address] Care Team Providers Care Computer Patternmaker Name Role Phone Tim Kim MD Primary Care Provider [phone] Encounter Details Date Type Department Care Team (Late st Contact Info) Description 11/04/2023 Lab Requisition [facility] Pathology & Laboratory Medicine - [address] [address] Outr Resulting Lab, Provider Social History Tobacco [...] Description 04/28/2024 14:[address] [facility] Rheumatology [address] [place] [address] Alan Mann MBBS [address] [place] [address], [facility] 5 [place] [phone] documented as of this encounter Procedures Procedure Name Priority Date/Time Associated Diagnosis Comments SSA/SSB PANEL Routine 11/04/2023 11:40 EDT RHEUMATOID FACTOR Routine 11/04/2023 11: 40 EDT ANTI NUCLEAR AB (SHIKHA), IFA Routine 11/04/2023 11:40 EDT documented in this encounter Results * RHEUMATOID FACTOR (11/04/2023 11:40 EDT) Rheumatoid Factor 10.5 <12.0 IU/mL 11/05/2023 0:15 EDT [facility] Blood VENOUS BLOOD / Unknown 11/04/2023 11:40 EDT 11/04/2023 21:29 EDT Provider Outr Resulting Lab CHEMISTRY & BLOOD GAS ORDERABLES Performing Organization Address [facility] Co de Phone Number [facility] [address] [place] [address] * SSA/SSB PANEL (11/04/2023 11:40 EDT) Ro52 Anitbody, IgG <2.3 <20.0 CU 2023 16:56 EDT [facility] Comment:Results were obtaine d with the Sun CatalytixA Flash Ro52 chemiluminescent immunoassay. Values obtained with different manufacturers' assay methods must not be used interchangeably. Ro60 Antibody, IgG <7.0 <20.0 CU 2023 16:56 EDT [facility] Comment:Results were obtaine d with the Sun CatalytixA Flash Ro60 chemiluminescent immunoassay. Values obtained with different manufacturers' assay methods must not be used interchangeably. SSB Antibody, IgG <3.3 <20.0 CU 024 16:56 EDT [facility] Comment:Results were obtaine d with the Sun CatalytixA Flash SS-B chemiluminescent immunoassay. Values obtained with different manufacturers' assay methods must not be used interchangeably. Blood VENOUS BLOOD / Unknown 11/04/2023 11:40 EDT 11/04/2023 21:29 EDT Provider Outr Resulting Lab IMMUNOLOGY A ND SEROLOGY ORDERABLES Performing Organization Address [facility]/ZIP Co de Phone Number [facility] [address] [place], [place] [id number] * ANTI NUCLEAR AB (SHIKHA), IFA (11/04/2023 11:40 EDT) SHIKHA Interpretation Negative Negative 2023 14:44 EDT [facility] Comment:No titer performed, SHIKHA Screen is negative. Blood VENOUS BLOOD / Unknown 11/04/2023 11:40 EDT 11/04/2023 21:29 EDT Narrative [facility] - 11/05/2023 14:44 EDT Results were obtained with the INOVA NOVA Lite HEp-2 SHIKHA Kit by indirect immunofluorescence. Provider Outr Resulting Lab IMMUNOLOGY A ND SEROLOGY ORDERABLES [facility] [address] [place] [address] documented in this encounter Visit Diagnoses Not on filedocumented in this encounter Care Teams Computer Patternmaker Relationship Specialty Start Date End Date Tim Kim MD [address] [place], [place] [phone] PCP - General 09/03/21 documented as of this encounter
--- OUTSIDE RECORDS SUMMARY | 2024-02-01 21:22 | XMS_ITS | Encounter Summary ---
Author Organization [facility] Address [address] [place] [address] Care Team Providers Care Pump Machine Operator Name Role Phone Unknown, Provider Primary Care Provider [phone] Tim Kim MD Primary Care Provider [phone] Encounter Details Date Type Department Care Team (Late st Contact Info) Description 02/07/2020 Lab Requisition [facility] Pathology & Laboratory Medicine - [address] [address] Outr Resulting Lab, Provider Social History Tobacco [...] Info) Description 04/28/2024 14:45 EDT Office Visit [facility] Rheumatology [address] [place] [address] Alan Mann MBBS 111 [facility], [facility] 5 [place] [phone] documented as of this encounter Procedures Procedure [...] MICROBIOLOGY - GENERAL ORDERABLES Performing Organization Address City/[facility]/ZIP Co de Phone Number [facility] [address] [place] [address] * COVID-19 TESTING (02/07/2020 17:18 EDT) COVID-19 rt-PCR Result Negative Negative 02/08/2020 1:[address] [facility] Comment: This test has [...] history, and epidemiological information. Performed on the Snooxher Fusion instrument Performing Lab [place] [facility] 02/08/2020 1:[address] [facility] Swab 02/07/2020 17:1 8 EDT 02/07/2020 21:23 EDT Provider Outr Resulting Lab MICROBIOLOGY - GENERAL ORDERABLES Performing Organization Address City/[facility]/ZIP Co de Phone Number [facility] [address] [place] [address] documented in this encounter Visit Diagnoses Not on filedocumented in this encounter Care Teams Pump Machine Operator Relationship Specialty Start Date End Date Unknown, Provider, PCP - General 04/13/13 09/02/21 Tim Kim MD [address] [place] [address] PCP - General 09/03/21 documented as of this encounter
--- OUTSIDE RECORDS SUMMARY | 2024-02-01 21:22 | XMS_ITS | Encounter Summary ---
Author Organization [facility] Address [address] [place] [address] Care Team Providers Care Photographic Engineer Name Role Phone Unknown, Provider Primary Care Provider [phone] Encounter Details Date Type Department Care Team (Late st Contact Info) Description 12/25/2016 Results Only [facility] [phone] Damien Hilton, [facility]- [address] [place] [address] Social History Tobacco Use Types Packs/Day Years Used Date Smoking Tobacco: Never Assessed Sex and Gender Information Value Date Recorded Sex Assigned at Not on file Gender Identity Not on file Sexual Orientation Not on file documented as of this encounter Plan of Treatment Upcoming Encounters Date Type Department Care Team (Late st Contact Info) Description 04/28/2024 14:45 EDT Office Visit [facility] Rhe[facility]ology [address] [place] [address] Alan Mann MBBS 111 [facility], [facility] 5 [place] [address] documented as of this encounter [...] ? RADHA SCHMIDT ? Accession #: ? [id number] : ? 1990 (Age: 26) ??F ?Collect Date: ? 12/25/2016 Location: ? [facility] ? Receive Date: ? 12/29/2016 Provider: ?DAMIEN APODACA PROPOSAL REVIEW ANALYST-BC Copy to: ? Specimen/Source: ?Pap Test, Cervix, ThinPrep Imaging System with manual evaluation Last Menstrual Period: ? SPECIMEN ADEQUACY ? Satisfactory for Evaluation - transformation zone component absent GENERAL CATEGORIZATION ? Negative for Intraepithelial Lesion or Malignancy ? Document reviewed and electronically signed by: ? Criss Crooks, CT(ASCP) ? Report Date: ??01/08/2017 08:56 End of Report [facility] 12/25/2016 12/29/2016 Damien Hilton PROPOSAL REVIEW ANALYST-BC PATHOLOGY ORDERA BLES [facility] [address] [place] [address] documented in this encounter Visit Diagnoses Not on filedocumented in this encounter Care Teams Photographic Engineer Relationship Specialty Start Date End Date Unknown, Provider, PCP - General 04/13/13 09/02/21 documented as of this encounter
--- OUTSIDE RECORDS SUMMARY | 2024-02-01 21:22 | XMS_ITS | Encounter Summary ---
Author Organization [facility] Address [address] [place] [address] Care Team Providers Care Labor Law Professor Name Role Phone Tim Kim MD Primary Care Provider [phone] Encounter Details Date Type Department Care Team (Late st Contact Info) Description 11/03/2023 Lab Requisition [facility] Pathology & Laboratory Medicine - [address] [address] Outr Resulting Lab, Provider Social History Tobacco [...] Info) Description 04/28/2024 14:45 EDT Office Visit [facility] Rheumatology [address] [place] [address] Alan Mann MBBS [address] [place] [address], [facility] 5 [place] [phone] documented as of this encounter Procedures Procedure Name Priority Date/Time Associated Diagnosis Comments HSV (HERPES SIMPLEX VIRUS) MOLECULAR DETECTION, PCR Routine 11/02/2023 17:25 EDT documented in this encounter Results * HSV (HERPES SIMPLEX VIRUS) MOLECULAR DETECTION, PCR (11/02/2023 17:25 EDT) Herpes Simplex Virus Molecular Detection 1, PCR Negative Negative 11/04/2023 9:44 EDT [facility] Herpes Simplex Virus Molecular Detection 2, PCR Negative Negative 11/04/2023 9:44 EDT [facility] Swab ABSCESS MORPHOLOGY / Unknown 11/02/2023 17:25 EDT 11/03/2023 17:42 EDT Provider Outr Resulting Lab MICROBIOLOGY - GENERAL ORDERABLES Performing Organization Address City/State/[facility] Co de Phone Number [facility] [address] [place] [address] documented in this encounter Visit Diagnoses Not on filedocumented in this encounter Care Teams Labor Law Professor Relationship Specialty Start Date End Date Tim Kim MD [address] [place], [place] [phone] PCP - General 09/03/21 documented as of this encounter
--- OUTSIDE RECORDS SUMMARY | 2024-02-01 21:22 | XMS_ITS | Clinical Summary ---
Author Organization [facility] Address [address] [place] [address] Care Team Providers Care Rust Proofer Name Role Phone Tim Kim MD Primary Care Provider [phone] Encounters Date Type Department Care Team Description 11/04/2023 Lab Requisition [facility] Pathology & Laboratory [address] [address] Outr Resulting Lab, Provider 11/03/2023 Lab Requisition [facility] Pathology & Laboratory [address] [address] Outr Resulting Lab, Provider from Last 3 [...] Info) Description 04/28/2024 14:45 EDT Office Visit [facility] Rheumatology [address] [place] [address] Alan Mann MBBS 111 [facility], Level 5 [place] [phone] Health Maintenance Due Date Last Done Comments [...] IgG <2.3 <20.0 CU 2023 16:56 EDT [facility] Comment:Results were obtaine d with the TraktoPROA Flash Ro52 chemiluminescent immunoassay. Values obtained with different manufacturers' assay methods must not be used interchangeably. Ro60 Antibody, IgG <7.0 <20.0 CU 2023 16:56 EDT [facility] Comment:Results were obtaine d with the TraktoPROA Flash Ro60 chemiluminescent immunoassay. Values obtained with different manufacturers' assay methods must not be used interchangeably. SSB Antibody, IgG <3.3 <20.0 CU 024 16:56 EDT [facility] Comment:Results were obtaine d with the TraktoPROA Flash SS-B chemiluminescent immunoassay. Values obtained with different manufacturers' assay methods must not be used interchangeably. Blood VENOUS BLOOD / Unknown 11/04/2023 11:40 EDT 11/04/2023 21:29 EDT Provider Outr Resulting Lab IMMUNOLOGY A ND SEROLOGY ORDERABLES [facility] [address] [place] [address] * RHEUMATOID FACTOR (11/04/2023 11:40 EDT) Rheumatoid Factor 10.5 <12.0 IU/mL 11/05/2023 0:15 EDT [facility] Blood VENOUS BLOOD / Unknown 11/04/2023 11:40 EDT 11/04/2023 21:29 EDT Provider Outr Resulting Lab CHEMISTRY & BLOOD GAS ORDERABLES Performing Organization Address City/[facility]/ZIP Co de Phone Number [facility] [address] [place], [place] [phone] * ANTI NUCLEAR AB (SHIKHA), IFA (11/04/2023 11:40 EDT) Pathologist [facility] SHIKHA Interpretation Negative Negative 2023 14:44 EDT [facility] Comment:No titer performed, SHIKHA Screen is negative. Blood VENOUS BLOOD / Unknown 11/04/2023 11:40 EDT 11/04/2023 21:29 EDT Narrative [facility] - 11/05/2023 14:44 EDT Results were obtained with the INOVA NOVA Lite HEp-2 SHIKHA Kit by indirect immunofluorescence. Provider Outr Resulting Lab IMMUNOLOGY A ND SEROLOGY ORDERABLES Performing Organization Address [facility] de Phone Number [facility] [address] [place] [phone] * HSV (HERPES SIMPLEX VIRUS) MOLECULAR DETECTION, PCR (11/02/2023 17:25 EDT) Pathologist [facility] Herpes Simplex Virus Molecular Detection 1, PCR Negative Negative 11/04/2023 9:44 EDT [facility] Herpes Simplex Virus Molecular Detection 2, PCR Negative Negative 11/04/2023 9:44 EDT [facility] Swab ABSCESS MORPHOLOGY / Unknown 11/02/2023 17:25 EDT 11/03/2023 17:42 EDT Provider Outr Resulting Lab MICROBIOLOGY - GENERAL ORDERABLES Performing Organization Address [facility]/ZIP Co de Phone Number [facility] [address] [place] [phone] * HEPATITIS C AB W REFLEX TO HCV RNA BY PCR (04/10/2021 8:58 EDT) Hep C Antibody Negative Negative 04/11/2021 10:07 EDT [facility] Blood VENOUS BLOOD / Unknown 04/10/2021 8:58 EDT 04/10/2021 16:25 EDT Provider Outr Resulting Lab CHEMISTRY & BLOOD GAS ORDERABLES [facility] [address] [place] [address] from Last 3 Months or Most Recently Relevant to Health Maintenance Care Teams Rust Proofer Relationship Specialty Start Date End Date Tim Kim MD [address] [place] [address] PCP - General 09/03/21
--- OUTSIDE RECORDS SUMMARY | 2024-02-01 21:22 | XMS_ITS | Encounter Summary ---
Author Organization [facility] Address [address] [place] [address] Care Team Providers Care Beef Farmer Name Role Phone Unknown, Provider Primary Care Provider [phone] Tim Kim MD Primary Care Provider Encounter Details Date Type Department Care Team (Late st Contact Info) Description 06/15/2020 Lab Requisition [facility] Pathology & Laboratory Medicine - [address] [address] Outr Resulting Lab, Provider Social History Tobacco [...] Office Visit [facility] Rheumatology [address] [place] [address] Alan Mann MBBS 111 [facility], [facility] 5 [place] [phone] documented as of this encounter Procedures Procedure Name Priority Date/Time Associated Diagnosis Comments DO NOT ORDER STANDALONE - BROAD COVID TEST Today 06/14/2020 11:30 EST COVID-19 TESTING Routine 06/14/2020 11:3 0 EST documented in this encounter Results * DO NOT ORDER STANDALONE - BROAD COVID TEST (06/14/2020 11:30 EST) [facility] COVID-19 rt-PCR Result NEGATIVE Negative 06/17/2020 14:27 EST [facility] Comment: 2019-novel Coronavirus (2019-nCoV) not detected [...] in accordance with CLIA regulations, College [employer] [place] [employer] (CAP) guidelines (Sep 22, 2019), and FDA guidance (Sep 03, 2019). This test is only for use under the Food and Drug Administration's Emergency Use Authorization. Swab ENTIRE NASOPHARYNX / Unknown 06/14/2020 11:30 EST 06/15/2020 15:53 EST Provider Outr Resulting Lab MICROBIOLOGY - GENERAL ORDERABLES [facility] [place], [place] * COVID-19 TESTING (06/14/2020 11:30 EST) COVID-19 rt-PCR Result NEGATIVE Negative 06/17/2020 16:45 EST [facility] Comment: 2019-novel Coronavirus (2019-nCoV) not detected [...] in accordance with CLIA regulations, [employer] [place] [employer] (CAP) guidelines (Sep 22, 2019), and FDA guidance (Sep 03, 2019). This test is only for use under the Food and Drug Administration's Emergency Use Authorization. Performing Lab [facility] 06/17/2020 16:45 EST [facility] Swab 06/14/2020 11:3 0 EST 06/15/2020 15:53 EST Provider Outr Resulting Lab MICROBIOLOGY - GENERAL ORDERABLES [facility] [address] [place] [address] [facility] [place], [place] documented in this encounter Visit Diagnoses Not on filedocumented in this encounter Care Teams Beef Farmer Relationship Specialty Start Date End Date Unknown, Provider, PCP - General 04/13/13 09/02/21 Tim Kim MD [address] [place] [address] PCP - General 09/03/21 documented as of this encounter
--- OUTSIDE RECORDS SUMMARY | 2024-02-01 21:22 | XMS_ITS | Clinical Summary ---
Author Organization [facility] Address [facility] [place] [address] Care Team Providers Care Naturopathic Doctor Name Role Phone Tim Kim MD Primary Care Provider Allergies Active Allergy Reactions Criticality Noted Date [...] - Influenza standard series) 03/06/2024 Care Teams Naturopathic Doctor Relationship Specialty Start Date End Date Tim Kim MD [address] [place] [address] PCP - General 05/28/10
--- OUTSIDE RECORDS SUMMARY | 2024-02-01 21:22 | XMS_ITS | Encounter Summary ---
Author Organization [facility] Address [address] [place] [address] Care Team Providers Care Baller Tender Name Role Phone Unknown, Provider Primary Care Provider [phone] Tim Kim MD Primary Care Provider Encounter Details Date Type Department Care Team (Late st Contact Info) Description 07/20/2020 Lab Requisition [facility] Pathology & Laboratory Medicine - [address] [address] Outr Resulting Lab, Provider Social History Tobacco [...] Info) Description 04/28/2024 14:45 EDT Office Visit [facility] Rheumatology [address] [place] [address] Alan Mann MBBS 111 [facility], [facility] 5 [place] [address] documented as of this encounter Procedures Procedure Name Priority Date/Time Associated Diagnosis Comments SPEP, INCLUDES QUANTITATION OF MONOCLONAL SPIKE Routine 07/20/2020 10:45 EST documented in this encounter Results * SPEP, INCLUDES QUANTITATION OF MONOCLONAL SPIKE (07/20/2020 10:45 EST) Total Protein 7.3 6.3 - 8.2 g/dL 07/23/2020 12:38 [facility] Albumin % 61.2 55.8 - 66.1 % 07/23/2020 12:38 [facility] Alpha-1 % 4.3 2.9 - 4.9 % 07/23/2020 12:38 [facility] Alpha-2 % 10.1 7.1 - 11.8 % 07/23/2020 12:38 [facility] Beta % 9.9 8.4 - 13.1 % 07/23/2020 12:38 [facility] Gamma % 14.5 11.1 - 18.8 % 07/23/2020 12:38 [facility] SPEP Comment No apparent monoclonal protein seen on serum electrophoresis 07/23/2020 12:38 [facility] Comment:See scanned/suppleme ntary report. Blood VENOUS BLOOD / Unknown 07/20/2020 10:45 EST 07/20/2020 21:02 EST Provider Outr Resulting Lab CHEMISTRY & BLOOD GAS ORDERABLES [facility] [address] [place] [address] documented in this encounter Visit Diagnoses Not on filedocumented in this encounter Care Teams Baller Tender Relationship Specialty Start Date End Date Unknown, MD Lianna PCP - General 04/13/13 09/02/21 Tim Kim MD [address] [place] [address] PCP - General 09/03/21 documented as of this encounter
--- OUTSIDE RECORDS SUMMARY | 2024-02-01 21:22 | XMS_ITS | Encounter Summary ---
Author Organization [facility] Address [address] [place] [address] Care Team Providers Care Athletic Scout Name Role Phone Unknown, Provider Primary Care Provider Encounter Details Date Type Department Care Team (Late st Contact Info) Description 04/13/2013 Results Only [facility] Services - [facility] ([facility] [address] [place] [address] Unknown, Provider, Social History Tobacco Use Types Packs/Day Years Used Date Smoking Tobacco: Never Assessed Sex and Gender Information Value Date Recorded Sex Assigned at Not on file Gender Identity Not on file Sexual Orientation Not on file documented as of this encounter Plan of Treatment Upcoming Encounters Date Type Department Care Team (Late st Contact Info) Description 04/28/2024 14:45 EDT [facility] Visit [facility] Rheumatology [address] [place] [address] Alan Mann MBBS 111 [facility], [facility] 5 [place] [phone] documented as of this encounter Procedures Procedure Name Priority Date/Time Associated Diagnosis Comments SCREEN TEST Routine 04/13/2013 16: 03 EDT documented in this encounter Results * SCREEN TEST (04/13/2013 16:03 EDT) Screen Test NEGATIVE [facility] 04/13/2013 16:0 3 EDT Provider Unknown BLOOD BANK TESTS [facility] [address] [place] [address] documented in this encounter Visit Diagnoses Not on filedocumented in this encounter Care Teams Athletic Scout Relationship Specialty Start Date End Date Unknown, Provider, PCP - General 04/13/13 09/02/21 documented as of this encounter
--- OUTSIDE RECORDS SUMMARY | 2024-02-01 21:22 | XMS_ITS | Encounter Summary ---
Author Organization [facility] Address [address] [place] [address] Care Team Providers Care Boilermaker Central Steam Plant Name Role Phone Unknown, Provider Primary Care Provider [phone] Tim Kim MD Primary Care Provider [phone] Encounter Details Date Type Department Care Team (Late st Contact Info) Description 04/10/2021 Lab Requisition [facility] Pathology & Laboratory Medicine - [address] [address] Outr Resulting Lab, Provider Social History Tobacco [...] Info) Description 04/28/2024 14:45 EDT Office Visit [facility] Rheumatology [address] [place] [address] Alan Mann MBBS 111 [facility], [facility] [address] [place] [phone] documented as of this encounter Procedures Procedure Name Priority Date/Time Associated Diagnosis Comments RUBELLA IGG ANTIBODY Routine 04/10/2021 8:58 EDT VARICELLA IGG ANTIBODY Routine 04/10/2021 8:58 EDT documented in this encounter Results * VARICELLA IGG ANTIBODY (04/10/2021 8:58 EDT) Varicella IgG Ab Positive See Note 04/11/2021 10:06 EDT [facility] Comment:Presence of detectab le Varicella Zoster virus IgG antibodies. Blood VENOUS BLOOD / Unknown 04/10/2021 8:58 EDT 04/10/2021 16:24 EDT Provider Outr Resulting Lab IMMUNOLOGY A ND SEROLOGY ORDERABLES Performing Organization Address [facility] Co de Phone Number [facility] [address] [place] [address] * RUBELLA IGG ANTIBODY (04/10/2021 8:58 EDT) Rubella IgG Ab Negative See Note 04/11/2021 10:11 EDT [facility] Comment:Sample is considered negative [...] & BLOOD GAS ORDERABLES Performing Organization Address [facility] Co de Phone Number [facility] [address] [place] [address] documented in this encounter Visit Diagnoses Not on filedocumented in this encounter Care Teams Boilermaker Central Steam Plant Relationship Specialty Start Date End Date Unknown, Provider, PCP - General 04/13/13 09/02/21 Tim Kim MD [address] [place] [address] PCP - General 09/03/21 documented as of this encounter
--- OUTSIDE RECORDS SUMMARY | 2024-02-01 21:22 | XMS_ITS | Encounter Summary ---
Author Organization [facility] [place] [address] Care Team Providers Care Digital Strategist Name Role Phone Tim Kim MD Primary Care Provider [phone] Encounter Details Date Type Department Care Team (Late st Contact Info) Description 10/15/2020 External [place] [address] Samy Mckeon MD [facility] [place] [address] Social History Tobacco Use Types Packs/Day Years [...] on filedocumented in this encounter Care Teams Digital Strategist Relationship Specialty Start Date End Date Tim Kim MD [address] [place] [address] PCP - General 05/28/10 documented as of this encounter
--- OUTSIDE RECORDS SUMMARY | 2024-02-01 21:22 | XMS_ITS | Encounter Summary ---
Author Organization [facility] Address [address] [place] [address] Care Team Providers Care Mopper Name Role Phone Unknown, Provider Primary Care Provider [phone] Tim Kim MD Primary Care Provider [phone] Encounter Details Date Type Department Care Team (Late st Contact Info) Description 04/05/2021 Lab Requisition [facility] Pathology & Laboratory Medicine - [address] [address] Outr Resulting Lab, Provider Social History Tobacco [...] Description 04/28/2024 14:45 EDT Office Visit [facility] Rheumatology [address] [place] [address] Alan Mann MBBS 111 [facility], [facility] 5 [place] [phone] documented as of this encounter Procedures Procedure Name Priority Date/Time Associated Diagnosis Comments CHLAMYDIA/N. GONORRHOEAE AMPLIFIED NUCLEIC ACID Routine 04/04/2021 14:15 EDT documented in this encounter Results * CHLAMYDIA/N. GONORRHOEAE AMPLIFIED RNA (04/04/2021 14:15 EDT) Neisseria gonorrhoeae Result Negative Negative 04/08/2021 16:07 EDT [facility] Chlamydia trachomatis Result Negative Negative 04/08/2021 16:07 EDT [facility] Swab ENTIRE WALL OF CERVIX / Unknown 04/04/2021 14:15 EDT 04/05/2021 18:45 EDT Provider Outr Resulting Lab MICROBIOLOGY - GENERAL ORDERABLES Performing Organization Address City/State/[facility] Co de Phone Number [facility] [address] [place] [address] documented in this encounter Visit Diagnoses Not on filedocumented in this encounter Care Teams Mopper Relationship Specialty Start Date End Date Unknown, Provider, PCP - General 04/13/13 09/02/21 Tim Kim MD [address] [place] [address] PCP - General 09/03/21 documented as of this encounter
--- OUTSIDE RECORDS SUMMARY | 2024-02-01 21:22 | XMS_ITS | Encounter Summary ---
Author Organization [facility] Address [address] [place] [address] Care Team Providers Care Silverware Etcher Name Role Phone Unknown, Provider Primary Care Provider [phone] Tim Kim MD Primary Care Provider Encounter Details Date Type Department Care Team (Late st Contact Info) Description 07/27/2020 Lab Requisition [facility] Pathology & Laboratory Medicine - [address] [address] Outr Resulting Lab, Provider Social History Tobacco [...] Info) Description 04/28/2024 14:45 EDT Office Visit [facility] Rheumatology [address] [place] [address] Alan Mann MBBS 111 [facility], [facility] [address] [place] [phone] documented as of this encounter Procedures Procedure Name Priority Date/Time Associated Diagnosis Comments CHLAMYDIA/N. GONORRHOEAE AMPLIFIED NUCLEIC ACID Routine 07/27/2020 11:25 EST documented in this encounter Results * CHLAMYDIA/N. GONORRHOEAE AMPLIFIED RNA (07/27/2020 11:25 EST) Neisseria gonorrhoeae Result Negative Negative 07/30/2020 14:21 EST [facility] Chlamydia trachomatis Result Negative Negative 07/30/2020 14:21 EST [facility] Swab ENTIRE WALL OF CERVIX / Unknown 07/27/2020 11:25 EST 07/27/2020 22:04 EST Provider Outr Resulting Lab MICROBIOLOGY - GENERAL ORDERABLES Performing Organization Address City/State/[facility] Co de Phone Number [facility] [address] [place] [address] documented in this encounter Visit Diagnoses Not on filedocumented in this encounter Care Teams Silverware Etcher Relationship Specialty Start Date End Date Unknown, Provider, PCP - General 04/13/13 09/02/21 Tim Kim MD [address] [place] [address] PCP - General 09/03/21 documented as of this encounter
--- OUTSIDE RECORDS SUMMARY | 2024-02-01 21:22 | XMS_ITS | Encounter Summary ---
Author Organization [facility] [address] Care Team Providers Care Pallet Stone Positioner Name Role Phone Tim Kim MD Primary Care Provider [phone] Reason for Visit * Consultation (Routine) - Closed Specialty Diagnoses / Procedures Referred By Contac t Referred To Contact Neurology Diagnoses Pain in leg, unspecified Tim Kim MD [address] [place] [address] [facility] Neurology [address] [place] [phone] Referral ID Status Reason Start Date Expiration Date V isits Requested Visits Authorized [id number] Closed Consult, Test & Treat [facility] PCP Updated and/or Approved 07/23/2020 07/23/2021 6 6 Encounter Details Date Type Department Care Team (Latest Contact Info) Description 10/15/2020 1:00 PM EDT Procedure [place] [address] Samy Mckeon MD [facility] [place] [address] Bilateral leg paresthesia; Muscle pain Social History [...] well as recent note from neurology at [facility]. Radha first noted pain in her lower [...] today. She ended up having evaluation in [place]. She had several lab tests per the [facility] neurology notes. This included unremarkable CBC, CMP, TSH, magnesium, CK, CCP, celiac antibodies, Lyme panel, SHIKHA, rheumatoid factor, ESR, CRP. 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 She also had lumbar spine MRI at [facility] and it was unrevealing for [...] toes downgoing to plantar stimulation. Coordination normal yjtyix-bmkq-exwdap and bpiw-ymda-vntk testing. Gait slow but no ataxia. Antalgic [...] set her up for that here at [facility] although we also discussed that even if positive it would otherwise not change advisor likely. If it was positive further B [...] she like to have that done at [facility] in [facility] we could arrange that for her. [...] this office visit is 45 minutes including gnbt-vj-neye time, chart review, and documentation. Time was exclusive of the time for EMG nerve conduction studies. This note was created with voice recognition software. documented in this encounter Plan of Treatment Not on file documented as of this encounter Visit Diagnoses Diagnosis Bilateral leg paresthesia Disturbance of skin sensation Muscle pain Mylagia and myositis, unspecified documented in this encounter Care Teams Pallet Stone Positioner Relationship Specialty Start Date End Date Tim Kim MD [address] [place] [address] PCP - General 05/28/10 documented as of this encounter
--- OUTSIDE RECORDS SUMMARY | 2024-02-01 21:22 | XMS_ITS | Referral Summary ---
Author Organization [facility] Address [address] [place] [address] Care Team Providers Care Prenatal Genetic Counselor Name Role Phone Tim Kim MD Primary Care Provider [phone] Encounters Date Type Department Care Team Description 11/04/2023 Lab Requisition [facility] Pathology & Laboratory [address] [address] Outr Resulting Lab, Provider 11/03/2023 Lab Requisition [facility] Pathology & Laboratory [address] [address] Outr Resulting Lab, Provider from Last 3 [...] Description 04/28/2024 14:[address] [facility] Rheumatology [address] [place] [address] Alan Mann MBBS 111 [facility], [facility] 5 [place] [address] Procedures Procedure Name Priority Date/Time Associated Diagnosis [...] IgG <2.3 <20.0 CU 2023 16:56 EDT [facility] Comment:Results were obtaine d with the VarthanaA Flash Ro52 chemiluminescent immunoassay. Values obtained with different manufacturers' assay methods must not be used interchangeably. Ro60 Antibody, IgG <7.0 <20.0 CU 2023 16:56 EDT [facility] Comment:Results were obtaine d with the VarthanaA Flash Ro60 chemiluminescent immunoassay. Values obtained with different manufacturers' assay methods must not be used interchangeably. SSB Antibody, IgG <3.3 <20.0 CU 024 16:56 EDT [facility] Comment:Results were obtaine d with the VarthanaA Flash SS-B chemiluminescent immunoassay. Values obtained with different manufacturers' assay methods must not be used interchangeably. Blood VENOUS BLOOD / Unknown 11/04/2023 11:40 EDT 11/04/2023 21:29 EDT Provider Outr Resulting Lab IMMUNOLOGY A ND SEROLOGY ORDERABLES [facility] [address] [place] [address] * RHEUMATOID FACTOR (11/04/2023 11:40 EDT) Rheumatoid Factor 10.5 <12.0 IU/mL 11/05/2023 0:15 EDT [facility] Blood VENOUS BLOOD / Unknown 11/04/2023 11:40 EDT 11/04/2023 21:29 EDT Provider Outr Resulting Lab CHEMISTRY & BLOOD GAS ORDERABLES Performing Organization Address [facility]/ZIP Co de Phone Number [facility] [address] [place], [place] [id number] * ANTI NUCLEAR AB (SHIKHA), IFA (11/04/2023 11:40 EDT) Pathologist [facility] SHIKHA Interpretation Negative Negative 2023 14:44 EDT [facility] Comment:No titer performed, SHIKHA Screen is negative. Blood VENOUS BLOOD / Unknown 11/04/2023 11:40 EDT 11/04/2023 21:29 EDT Narrative [facility] - 11/05/2023 14:44 EDT Results were obtained with the INOVA NOVA Lite HEp-2 SHIKHA Kit by indirect immunofluorescence. Provider Outr Resulting Lab IMMUNOLOGY A ND SEROLOGY ORDERABLES Performing Organization Address [facility] Co de Phone Number [facility] [address] [place] [phone] * HSV (HERPES SIMPLEX VIRUS) MOLECULAR DETECTION, PCR (11/02/2023 17:25 EDT) [facility] Herpes Simplex Virus Molecular Detection 1, PCR Negative Negative 11/04/2023 9:44 EDT [facility] Herpes Simplex Virus Molecular Detection 2, PCR Negative Negative 11/04/2023 9:44 EDT [facility] Swab ABSCESS MORPHOLOGY / Unknown 11/02/2023 17:25 EDT 11/03/2023 17:42 EDT Provider Outr Resulting Lab MICROBIOLOGY - GENERAL ORDERABLES Performing Organization Address [facility] Co de Phone Number [facility] [address] [place] [phone] * HEPATITIS C AB W REFLEX TO HCV RNA BY PCR (04/10/2021 8:58 EDT) Pathologist [facility] Hep C Antibody Negative Negative 04/11/2021 10:07 EDT [facility] Blood VENOUS BLOOD / Unknown 04/10/2021 8:58 EDT 04/10/2021 16:25 EDT Provider Outr Resulting Lab CHEMISTRY & BLOOD GAS ORDERABLES [facility] [address] [place] [address] from Last 3 Months or Most Recently Relevant to Health Maintenance Care Teams Prenatal Genetic Counselor Relationship Specialty Start Date End Date Tim Kim MD [address] [place], [place] [id number] PCP - General 09/03/21
--- OUTSIDE RECORDS SUMMARY | 2024-02-01 21:22 | XMS_ITS | Encounter Summary ---
Author Organization [facility] Address [address] [place] [address] Care Team Providers Care Wet End Helper Name Role Phone Unknown, Provider Primary Care Provider [phone] Tim Kim MD Primary Care Provider [phone] Encounter Details Date Type Department Care Team (Late st Contact Info) Description 04/10/2021 Lab Requisition [facility] Pathology & Laboratory Medicine - [address] [address] Outr Resulting Lab, Provider Social History Tobacco [...] EDT Office Visit [facility] Rheumatology [address] [place] [address] Alan Mann MBBS [address] [facility], [facility] [address] [place] [phone] documented as of this encounter Procedures Procedure Name Priority Date/Time Associated Diagnosis Comments HEPATITIS C AB W REFLEX TO HCV RNA BY PCR Routine 04/10/2021 8:58 EDT HEPATITIS B SURFACE ANTIGEN Routine 04/10/2021 8:58 EDT documented in this encounter Results * HEPATITIS B SURFACE ANTIGEN (04/10/2021 8:58 EDT) Hep B Surface Ag Negative Negative 04/11/2021 9:26 EDT [facility] Blood VENOUS BLOOD / Unknown 04/10/2021 8:58 EDT 04/10/2021 16:25 EDT Provider Outr Resulting Lab CHEMISTRY & BLOOD GAS ORDERABLES Performing Organization Address City/[facility]/ZIP Co de Phone Number [facility] [address] [place] [address] * HEPATITIS C AB W REFLEX TO HCV RNA BY PCR (04/10/2021 8:58 EDT) Hep C Antibody Negative Negative 04/11/2021 10:07 EDT [facility] Blood VENOUS BLOOD / Unknown 04/10/2021 8:58 EDT 04/10/2021 16:25 EDT Provider Outr Resulting Lab CHEMISTRY & BLOOD GAS ORDERABLES Performing Organization Address [facility] de Phone Number [facility] [address] [place] [address] documented in this encounter Visit Diagnoses Not on filedocumented in this encounter Care Teams Wet End Helper Relationship Specialty Start Date End Date Unknown, MD Lianna PCP - General 04/13/13 09/02/21 Tim Kim MD [address] [place] [id number] PCP - General 09/03/21 documented as of this encounter
--- OUTSIDE RECORDS SUMMARY | 2024-02-01 21:22 | XMS_ITS | Encounter Summary ---
Author Organization [facility] Address [address] [place] [address] Care Team Providers Care Shop Cooper Name Role Phone Unknown, Provider Primary Care Provider [phone] Tim Kim MD Primary Care Provider [phone] Encounter Details Date Type Department Care Team (Late st Contact Info) Description 04/10/2021 Lab Requisition [facility] Pathology & Laboratory Medicine - [address] [address] Outr Resulting Lab, Provider Social History Tobacco [...] Info) Description 04/28/2024 14:45 EDT Office Visit [facility] Rheumatology [address] [place] [address] Alan Mann MBBS 111 [facility], [facility] [address] [place] [phone] documented as of this encounter Procedures Procedure Name Priority Date/Time Associated Diagnosis Comments HIV 1/2 ANTIGEN AND ANTIBODY, 4TH GENERATION Routine 04/10/2021 8:58 EDT documented in this encounter Results * HIV 1/2 ANTIGEN AND ANTIBODY, 4TH GENERATION (04/10/2021 8:58 EDT) HIV 1 and 2 Antibody/p24 Antigen, 4th Generation Negative Negative 04/11/2021 10:18 EDT [facility] Comment: If acute HIV-1 infection is suspected in a high risk ??patient, submit plasma specimen for HIV-1 RNA quantitation test. Fourth Generation assay performed on the Siemens CFEngineaur. Blood VENOUS BLOOD / Unknown 04/10/2021 8:58 EDT 04/10/2021 16:24 EDT Provider Outr Resulting Lab IMMUNOLOGY A ND SEROLOGY ORDERABLES [facility] [address] [place] [address] documented in this encounter Visit Diagnoses Not on filedocumented in this encounter Care Teams Shop Cooper Relationship Specialty Start Date End Date Unknown, Provider, PCP - General 04/13/13 09/02/21 Tim Kim MD [address] [place] [address] PCP - General 09/03/21 documented as of this encounter
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
[2024-02-01 22:34] VITALS: BP 112/70; PULSE 70; RESP 16; O2SAT 98
== END 2024-02-01 22:42 | disposition home or self-care (01) ==
PROVIDERS: Emergency Provider Student in an Organized Health Care Education/Training Program; PCP Nurse Practitioner Family
DX: B02.30 Zoster ocular disease, unspecified (principal); F17.290 Nicotine dependence, other tobacco product, uncomplicated
CPT/HCPCS: 76512; 99283

== ENCOUNTER → 2024-02-02 02:35 | Outpatient (CLI) | payer MEDICAID, SELFPAY ==
--- NOTE | 2024-02-02 | DI.MRI_ITS ---
Exam(s) MR BRAIN ORBIT FACE NECK WO/W EXAM: MR BRAIN ORBIT FACE NECK WO/W CLINICAL HISTORY: PAINFUL BLURRED VISION LT EYE,? OPTIC NEURITIS VS MS TECHNIQUE: Multiplanar multisequence MRI of the brain was performed. CONTRAST MATERIAL: IV Contrast: 14 ML of Dotarem contrast administered. COMPARISON: MR MR BRAIN WO from 10/06/2023 FINDINGS: BRAIN: VENTRICLES AND EXTRA AXIAL SPACES: Normal in size and morphology for the patient's age. HEMORRHAGE: None. CEREBRAL PARENCHYMA: No focus of restricted diffusion to suggest acute infarct. No space-occupying le ozzie identified. No abnormal high signal lesions in the white matter. MIDLINE SHIFT: None. BRAINSTEM/CEREBELLUM: Normal. CALVARIUM: Normal. ENHANCEMENT: No suspicious enhancement identified. VISUALIZED PARANASAL SINUSES/MASTOIDS: Clear. KAKE OF BRIDGES: Normal flow void. PITUITARY GLAND: Unremarkable. OTHER FINDINGS: None ORBITS: ORBITS: The anterior and posterior chambers of the globes are intact. The retrobulbar fat is unremark able. Extraocular muscles are unremarkable. OPTIC NERVES: The intracranial and extracranial portions of the optic nerves are within normal limits . Optic chiasm is within normal limits. No MRI evidence of optic neuritis identified. SOFT TISSUES: The superior opthalmic veins are unremarkable. Remaining soft tissues are unremarkable. OTHER FINDINGS: None. IMPRESSION: Unremarkable MRI of the brain and orbits. No evidence neuritis or demyelinating disease. DATA REPOSITORY:
--- OUTSIDE RECORDS SUMMARY | 2024-02-02 02:36 | XMS_ITS | Clinical Summary ---
Author Organization [facility] Address [facility] [place] [address] Care Team Providers Care Recording Studio Setup Worker Name Role Phone Tim Kim MD Primary [...] - Influenza standard series) 03/06/2024 Care Teams Recording Studio Setup Worker Relationship Specialty Start Date End Date Tim Kim MD [address] [place] [address] PCP - General 05/28/10
--- OUTSIDE RECORDS SUMMARY | 2024-02-02 02:36 | XMS_ITS | Encounter Summary ---
Author Organization [facility] [place] [address] Care Team Providers Care Book Retailer Name Role Phone Tim Kim MD Primary Care Provider [phone] Reason for Visit * Consultation (Routine) - Closed Specialty Diagnoses / Procedures Referred By Contac t Referred To Contact Neurology Diagnoses Pain in leg, unspecified Tim Kim MD [address] [place] [address] [facility] Neurology [address] [place] [id number] Referral ID Status Reason Start Date Expiration Date V isits Requested Visits Authorized [id number] Closed Consult, [facility] PCP Updated and/or Approved 07/23/2020 07/23/2021 6 6 Encounter Details Date Type Department Care Team (Latest Contact Info) Description 10/15/2020 1:00 PM EDT Procedure [place] [address] Samy Mckeon MD [facility] [place] [address] Bilateral leg paresthesia; Muscle pain Social History [...] well as recent note from neurology at [facility]. Radha first noted pain in her [...] today. She ended up having evaluation in [place]. She had several lab tests per the [facility] neurology notes. This included unremarkable CBC, CMP, TSH, magnesium, CK, CCP, celiac antibodies, Lyme panel, SHIKHA, rheumatoid factor, ESR, CRP. 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 She also had lumbar spine MRI at [facility] and it was unrevealing for an etiology [...] toes downgoing to plantar stimulation. Coordination normal [id number] and [id number] testing. Gait slow but no ataxia. Antalgic [...] set her up for that here at [facility] although we also discussed that even if positive it would otherwise not change management specialist likely. If it was positive further B [...] she like to have that done at [facility] her. [...] this office visit is 45 minutes including [id number] time, chart review, and documentation. Time was exclusive of the time for EMG nerve conduction studies. This note was created with voice recognition software. documented in this encounter Plan of Treatment Not on file documented as of this encounter Visit Diagnoses Diagnosis Bilateral leg paresthesia Disturbance of skin sensation Muscle pain Mylagia and myositis, unspecified documented in this encounter Care Teams Book Retailer Relationship Specialty Start Date End Date Tim Kim MD [address] [place] [address] PCP - General 05/28/10 documented as of this encounter
--- OUTSIDE RECORDS SUMMARY | 2024-02-02 02:36 | XMS_ITS | Encounter Summary ---
Author Organization [facility] [address] Care Team Providers Care Radiotelegraph Operator Servicer Name Role Phone Tim Kim MD Primary Care Provider [phone] Encounter Details Date Type Department Care Team (Late st Contact Info) Description 10/15/2020 External [place] [address] Samy Mckeon MD [facility] [place] [address] Social History Tobacco Use Types Packs/Day Years [...] on filedocumented in this encounter Care Teams Radiotelegraph Operator Servicer Relationship Specialty Start Date End Date Tim Kim MD [address] [place] [address] PCP - General 05/28/10 documented as of this encounter
--- OUTSIDE RECORDS SUMMARY | 2024-02-02 02:37 | XMS_ITS | Encounter Summary ---
Author Organization [facility] Address [address] [place] [address] Care Team Providers Care Home Health Speech Therapist Name Role Phone Tim Kim MD Primary Care Provider [phone] Encounter Details Date Type Department Care Team (Late st Contact Info) Description 11/03/[address] [facility] Pathology & Laboratory Medicine - [address] [address] Outr Resulting Lab, Provider Social History Tobacco [...] Info) Description 04/28/2024 14:45 EDT Office Visit [facility] Rheumatology [address] [place] [address] Alan Mann MBBS [address] [place] [address], [facility] 5 [place] [phone] documented as of this encounter Procedures Procedure Name Priority Date/Time Associated Diagnosis Comments HSV (HERPES SIMPLEX VIRUS) MOLECULAR DETECTION, PCR Routine 11/02/2023 17:25 EDT documented in this encounter Results * HSV (HERPES SIMPLEX VIRUS) MOLECULAR DETECTION, PCR (11/02/2023 17:25 EDT) Herpes Simplex Virus Molecular Detection 1, PCR Negative Negative 11/04/2023 9:44 EDT [facility] Herpes Simplex Virus Molecular Detection 2, PCR Negative Negative 11/04/2023 9:44 EDT [facility] Swab ABSCESS MORPHOLOGY / Unknown 11/02/2023 17:25 EDT 11/03/2023 17:42 EDT Provider Outr Resulting Lab MICROBIOLOGY - GENERAL ORDERABLES Performing Organization Address City/State/[facility] Co de Phone Number [facility] [address] [place] [address] documented in this encounter Visit Diagnoses Not on filedocumented in this encounter Care Teams Home Health Speech Therapist Relationship Specialty Start Date End Date Tim Kim MD [address] [place], [place] [id number] PCP - General 09/03/21 documented as of this encounter
--- OUTSIDE RECORDS SUMMARY | 2024-02-02 02:37 | XMS_ITS | Encounter Summary ---
Author Organization [facility] Address [address] [place] [address] Care Team Providers Care Public Health Sanitarian Name Role Phone Tim Kim MD Primary Care Provider [phone] Encounter Details Date Type Department Care Team (Late st Contact Info) Description 01/09/2022 Lab Requisition [facility] Pathology & Laboratory Medicine [address] [address] Griselda Alonso MD [address] [place] [address] [place] [address] Encounter for sterilization Social History [...] Description 04/28/2024 14:45 EDT Office Visit [facility] Rheumatology [address] [place] [address] Alan Mann MBBS 111 [facility], [facility] 5 [place] [address] documented as of this encounter [...] explore management options, if applicable. 01/13/2022 14:36 [facility] Final Diagnosis A. FALLOPIAN TUBE, LEFT, PARTIAL SALPINGECTOMY: - Segment of fallopian tube with no specific pathologic features. - Full cross-sections identified. B. FALLOPIAN TUBE, RIGHT, PARTIAL SALPINGECTOMY: - Segment of fallopian tube with no specific pathologic features. - Full cross-sections identified. 01/13/2022 14:36 [facility] Attestation There was significant resident/fellow involvement in the diagnostic evaluation of this case. By the signature below, the attending physician certifies that they have personally conducted a gross and/or microscopic examination of the described specimens and rendered or confirmed the above diagnosis. 01/13/2022 14:36 [facility] at 1436 Clinical History Desires sterilization 01/13/2022 14:36 [facility] Gross Description A. Received in formalin labelled with proper patient identification (initials N, S) and left fallopian tube are 2 segments of ott-case, tubular tissue (1.5 cm in length by 0.3 cm in diameter and 5.2 cm in length by 0.4 cm in diameter). The serosal surfaces are smooth and ott-case. No fimbria are present. Three traveling sales representative sections are submitted in A1. B. Received in formalin labelled with proper patient identification (initials N, S) and right fallopian tube is a 5.7 cm in length by 0.5 cm in diameter fimbriated fallopian tube. The serosa is smooth and purple-case. Sectioning reveals a patent, unremarkable lumen. Professor Of Biochemistry sections, to include the bisected fimbria, are submitted in B1-B2. LIZ DOW(ASCP) 01/09/2022 10:02 01/13/2022 14:36 [facility] Resident/Tony w: Florina Lewis DO 01/13/2022 14:36 [facility] Performing Lab [facility] 01/13/2022 14:36 EDT [facility] Scanned Images 01/13/2022 14:36 EDT [facility] Tissue ENTIRE FALLOPIAN TUBE / Unknown 01/08/2022 11:40 EDT 01/09/2022 6:40 EDT Tissue specimen (specimen) FALLOPIAN TUBE STRUCTURE / Unknown 01/08/2022 11:40 EDT 01/09/2022 6:40 EDT Griselda Alonso MD PATHOLOGY ORDERABLES [facility] [address] [place] [address] documented in this encounter Visit Diagnoses Diagnosis Encounter for sterilization Sterilization documented in this encounter Care Teams Public Health Sanitarian Relationship Specialty Start Date End Date Tim Kim MD [address] [place] [address] PCP - General 09/03/21 documented as of this encounter
--- OUTSIDE RECORDS SUMMARY | 2024-02-02 02:37 | XMS_ITS | Encounter Summary ---
Author Organization [facility] Address [address] [place] [address] Care Team Providers Care Metallographic Technician Name Role Phone Unknown, Provider Primary Care Provider Tim Kim MD Primary Care Provider Encounter Details Date Type Department Care Team (Late st Contact Info) Description 04/10/2021 Lab Requisition [facility] Pathology & Laboratory Medicine - [address] [address] Outr Resulting Lab, Provider Social History Tobacco [...] Description 04/28/2024 14:45 EDT Office Visit [facility] Rheumatology [address] [place] [address] Alan Mann MBBS 111 [facility], [facility] 5 [place] [phone] documented as of this encounter Procedures Procedure Name Priority Date/Time Associated Diagnosis Comments HIV 1/2 ANTIGEN AND ANTIBODY, 4TH GENERATION Routine 04/10/2021 8:58 EDT documented in this encounter Results * HIV 1/2 ANTIGEN AND ANTIBODY, 4TH GENERATION (04/10/2021 8:58 EDT) HIV 1 and 2 Antibody/p24 Antigen, 4th Generation Negative Negative 04/11/2021 10:18 EDT [facility] Comment: If acute HIV-1 infection is suspected in a high risk ??patient, submit plasma specimen for HIV-1 RNA quantitation test. Fourth Generation assay performed on the Siemens 3Nodaur. Blood VENOUS BLOOD / Unknown 04/10/2021 8:58 EDT 04/10/2021 16:24 EDT Provider Outr Resulting Lab IMMUNOLOGY A ND SEROLOGY ORDERABLES [facility] [address] [place] [address] documented in this encounter Visit Diagnoses Not on filedocumented in this encounter Care Teams Metallographic Technician Relationship Specialty Start Date End Date Unknown, Provider, PCP - General 04/13/13 09/02/21 Tim Kim MD [address] [place] [address] PCP - General 09/03/21 documented as of this encounter
--- OUTSIDE RECORDS SUMMARY | 2024-02-02 02:37 | XMS_ITS | Encounter Summary ---
Author Organization [facility] Address [address] [place] [address] Care Team Providers Care Customer Experience Intern Name Role Phone Unknown, Provider Primary Care Provider Tim Kim MD Primary Care Provider [phone] Encounter Details Date Type Department Care Team (Late st Contact Info) Description 12/17/2020 Lab Requisition [facility] Pathology & Laboratory Medicine - [address] [address] Pam Means MD 111 [facility] 4 [place] [phone] Encounter for other general examination Social History [...] Info) Description 04/28/2024 14:45 EDT Office Visit [facility] Rheumatology [address] [place] [address] Alan Mann MBBS 111 [facility] 5 [place] [address] documented as of this encounter Procedures Procedure Name Priority Date/Time Associated Diagnosis Comments PAP TEST Today 12/14/2020 9:10 EDT Encounter for other general examination documented in this encounter Results * PAP TEST (12/14/2020 9:10 EDT) Specimens A. Cervix and/or Endocervix , ThinPrep Imaging System with Manual Evaluation 12/25/2020 10:17 EDT [facility] Specimen Adequacy Satisfactory for Evaluation - transformation zone component present 12/25/2020 10:17 EDT [facility] General Categorization Negative for intraepithelial lesion or malignancy 12/25/2020 10:17 EDT [facility] Attestation . 12/25/2020 10:17 EDT [facility] at 1017 Clinical History See below 12/26/19 10:17 EDT [facility] Performing Lab [facility] 12/25/2020 10:17 T [facility] Scanned Images 12/25/2020 10:17 EDT [facility] Papanicolaou smear specimen (specimen) CERVIX UTERI STRUCTURE / Unknown 12/14/2020 9:10 EDT 12/17/2020 15:30 EDT Pam Means MD PATHOLOGY ORDERAB LES [facility] [address] [place] [address] documented in this encounter Visit Diagnoses Diagnosis Encounter for other general examination documented in this encounter Care Teams Customer Experience Intern Relationship Specialty Start Date End Date Unknown, Provider, PCP - General 04/13/13 09/02/21 Tim Kim MD [address] [place] [address] PCP - General 09/03/21 documented as of this encounter
--- OUTSIDE RECORDS SUMMARY | 2024-02-02 02:37 | XMS_ITS | Encounter Summary ---
Author Organization [facility] Address [address] [place] [address] Care Team Providers Care Director Report Name Role Phone Unknown, Provider Primary Care Provider [phone] Tim Kim MD Primary Care Provider [phone] Encounter Details Date Type Department Care Team (Late st Contact Info) Description 04/10/2021 Lab Requisition [facility] Pathology & Laboratory Medicine - [address] [address] Outr Resulting Lab, Provider Social History Tobacco [...] Info) Description 04/28/2024 14:45 EDT Office Visit [facility] [place]ology [address] [place] [address] Alan Mann MBBS 111 [facility], [facility] 5 [place] [phone] documented as of this encounter Procedures Procedure Name Priority Date/Time Associated Diagnosis Comments HEPATITIS C AB W REFLEX TO HCV RNA BY PCR Routine 04/10/2021 8:58 EDT HEPATITIS B SURFACE ANTIGEN Routine 04/10/2021 8:58 EDT documented in this encounter Results * HEPATITIS B SURFACE ANTIGEN (04/10/2021 8:58 EDT) Hep B Surface Ag Negative Negative 04/11/2021 9:26 EDT [facility] Blood VENOUS BLOOD / Unknown 04/10/2021 8:58 EDT 04/10/2021 16:25 EDT Provider Outr Resulting Lab CHEMISTRY & BLOOD GAS ORDERABLES Performing Organization Address City/[facility]/ZIP Co de Phone Number [facility] [address] [place] [address] * HEPATITIS C AB W REFLEX TO HCV RNA BY PCR (04/10/2021 8:58 EDT) Hep C Antibody Negative Negative 04/11/2021 10:07 EDT [facility] Blood VENOUS BLOOD / Unknown 04/10/2021 8:58 EDT 04/10/2021 16:25 EDT Provider Outr Resulting Lab CHEMISTRY & BLOOD GAS ORDERABLES Performing Organization Address [facility] de Phone Number [facility] [address] [place] [address] documented in this encounter Visit Diagnoses Not on filedocumented in this encounter Care Teams Director Report Relationship Specialty Start Date End Date Unknown, MD Lianna PCP - General 04/13/13 09/02/21 Tim Kim MD [address] [place] [address] PCP - General 09/03/21 documented as of this encounter
--- OUTSIDE RECORDS SUMMARY | 2024-02-02 02:37 | XMS_ITS | Encounter Summary ---
Author Organization [facility] Address [address] [place] [address] Care Team Providers Care Semiconductor Wafer Inspector Name Role Phone Unknown, Provider Primary Care Provider [phone] Tim Kim MD Primary Care Provider [phone] Encounter Details Date Type Department Care Team (Late st Contact Info) Description 04/10/2021 Lab Requisition [facility] Pathology & Laboratory Medicine - [address] [address] Outr Resulting Lab, Provider Social History Tobacco [...] Info) Description 04/28/2024 14:45 EDT Office Visit [facility] [place] [address] [place] [address] Alan Mann MBBS 111 [facility], [facility] 5 [place] [phone] documented as of this encounter Procedures Procedure Name Priority Date/Time Associated Diagnosis Comments RUBELLA IGG ANTIBODY Routine 04/10/2021 8:58 EDT VARICELLA IGG ANTIBODY Routine 04/10/2021 8:58 EDT documented in this encounter Results * VARICELLA IGG ANTIBODY (04/10/2021 8:58 EDT) Varicella IgG Ab Positive See Note 04/11/2021 10:06 EDT [facility] Comment:Presence of detectab le Varicella Zoster virus IgG antibodies. Blood VENOUS BLOOD / Unknown 04/10/2021 8:58 EDT 04/10/2021 16:24 EDT Provider Outr Resulting Lab IMMUNOLOGY A ND SEROLOGY ORDERABLES Performing Organization Address [facility] Co de Phone Number [facility] [address] [place] [address] * RUBELLA IGG ANTIBODY (04/10/2021 8:58 EDT) Rubella IgG Ab Negative See Note 04/11/2021 10:11 EDT [facility] Comment:Sample is considered negative [...] ORDERABLES Performing Organization Address [facility] Co de Phone Number [facility] [address] [place] [address] documented in this encounter Visit Diagnoses Not on filedocumented in this encounter Care Teams Semiconductor Wafer Inspector Relationship Specialty Start Date End Date Unknown, Provider, PCP - General 04/13/13 09/02/21 Tim Kim MD [address] [place] [address] PCP - General 09/03/21 documented as of this encounter
--- OUTSIDE RECORDS SUMMARY | 2024-02-02 02:37 | XMS_ITS | Encounter Summary ---
Author Organization [facility] Address [address] [place] [address] Care Team Providers Care Graphotype Operator Name Role Phone Unknown, Provider Primary Care Provider [phone] Tim Kim MD Primary Care Provider [phone] Encounter Details Date Type Department Care Team (Late st Contact Info) Description 06/15/[address] [facility] Pathology & Laboratory Medicine - [address] [address] Outr Resulting Lab, Provider Social History Tobacco [...] Info) Description 04/28/2024 14:45 EDT Office Visit [facility] Rheumatology [address] [place] [address] Alan Mann MBBS 111 [facility], [facility] 5 [place] [phone] documented as of this encounter Procedures Procedure Name Priority Date/Time Associated Diagnosis Comments DO NOT ORDER STANDALONE - BROAD COVID TEST Today 06/14/2020 11:30 EST COVID-19 TESTING Routine 06/14/2020 11:3 0 EST documented in this encounter Results * DO NOT ORDER STANDALONE - BROAD COVID TEST (06/14/2020 11:30 EST) [facility] COVID-19 rt-PCR Result NEGATIVE Negative 06/17/2020 14:27 EST [facility] Comment: 2019-novel Coronavirus (2019-nCoV) not detected [...] in accordance with CLIA regulations, College [employer] (CAP) guidelines (Sep 22, 2019), and FDA guidance (Sep 03, 2019). This test is only for use under the Food and Drug Administration's Emergency Use Authorization. Swab ENTIRE NASOPHARYNX / Unknown 06/14/2020 11:30 EST 06/15/2020 15:53 EST Provider Outr Resulting Lab MICROBIOLOGY - GENERAL ORDERABLES [facility] [place], [place] * COVID-19 TESTING (06/14/2020 11:30 EST) COVID-19 rt-PCR Result NEGATIVE Negative 06/17/2020 16:45 EST [facility] Comment: 2019-novel Coronavirus (2019-nCoV) not detected [...] in accordance with CLIA regulations, College [employer] (CAP) guidelines (Sep 22, 2019), and FDA guidance (Sep 03, 2019). This test is only for use under the Food and Drug Administration's Emergency Use Authorization. Performing Lab [facility] 06/17/2020 16:45 EST [facility] Swab 06/14/2020 11:3 0 EST 06/15/2020 15:53 EST Provider Outr Resulting Lab MICROBIOLOGY - GENERAL ORDERABLES [facility] [address] [place] [address] [facility] [place] documented in this encounter Visit Diagnoses Not on filedocumented in this encounter Care Teams Graphotype Operator Relationship Specialty Start Date End Date Unknown, Provider, PCP - General 04/13/13 09/02/21 Tim Kim MD [address] [place] [address] PCP - General 09/03/21 documented as of this encounter
--- OUTSIDE RECORDS SUMMARY | 2024-02-02 02:37 | XMS_ITS | Encounter Summary ---
Author Organization [facility] Address [address] [place] [address] Care Team Providers Care Golf Club Head Former Name Role Phone Unknown, Provider Primary Care Provider [phone] Encounter Details Date Type Department Care Team (Late st Contact Info) Description 12/25/2016 Results Only [facility] [phone] Damien Hilton, [facility]- [address] [place] [address] Social History Tobacco Use Types Packs/Day Years Used Date Smoking Tobacco: Never Assessed Sex and Gender Information Value Date Recorded Sex Assigned at Not on file Gender Identity Not on file Sexual Orientation Not on file documented as of this encounter Plan of Treatment Upcoming Encounters Date Type Department Care Team (Late st Contact Info) Description 04/28/2024 14:45 EDT Office Visit [facility] Rheumatology [address] [place] [address] Alan Mann MBBS 111 [facility], [facility] 5 [place] [address] documented as of this encounter [...] ? RADHA SCHMIDT ? Accession #: ? [id number] : ? 1990 (Age: 26) ??F ?Collect Date: ? 12/25/2016 Location: ? [facility] ? Receive Date: ? 12/29/2016 Provider: ?DAMIEN APODACA SIGNS SALES REPRESENTATIVE-BC Copy to: ? Specimen/Source: ?Pap Test, Cervix, ThinPrep Imaging System with manual evaluation Last Menstrual Period: ? SPECIMEN ADEQUACY ? Satisfactory for Evaluation - transformation zone component absent GENERAL CATEGORIZATION ? Negative for Intraepithelial Lesion or Malignancy ? Document reviewed and electronically signed by: ? Criss Crooks, [place](ASCP) ? Report Date: ??01/08/2017 08:56 End of Report [facility] 12/25/2016 12/29/2016 Damien Hilton SIGNS SALES REPRESENTATIVE-BC PATHOLOGY ORDERA BLES [facility] [address] [place] [address] documented in this encounter Visit Diagnoses Not on filedocumented in this encounter Care Teams Golf Club Head Former Relationship Specialty Start Date End Date Unknown, Provider, PCP - General 04/13/13 09/02/21 documented as of this encounter
--- OUTSIDE RECORDS SUMMARY | 2024-02-02 02:37 | XMS_ITS | Encounter Summary ---
Author Organization [facility] Address [address] [place] [address] Care Team Providers Care Investigations Director Name Role Phone Unknown, Provider Primary Care Provider [phone] Tim Kim MD Primary Care Provider Encounter Details Date Type Department Care Team (Late st Contact Info) Description 04/05/2021 Lab Requisition [facility] Pathology & Laboratory Medicine - [address] [address] Outr Resulting Lab, Provider Social History Tobacco [...] Info) Description 04/28/2024 14:45 EDT Office Visit [facility] Rheumatology [address] [place] [address] Alan Mann MBBS 111 [facility], [facility] 5 [place] [phone] documented as of this encounter Procedures Procedure Name Priority Date/Time Associated Diagnosis Comments CHLAMYDIA/N. GONORRHOEAE AMPLIFIED NUCLEIC ACID Routine 04/04/2021 14:15 EDT documented in this encounter Results * CHLAMYDIA/N. GONORRHOEAE AMPLIFIED RNA (04/04/2021 14:15 EDT) Neisseria gonorrhoeae Result Negative Negative 04/08/2021 16:07 EDT [facility] Chlamydia trachomatis Result Negative Negative 04/08/2021 16:07 EDT [facility] Swab ENTIRE WALL OF CERVIX / Unknown 04/04/2021 14:15 EDT 04/05/2021 18:45 EDT Provider Outr Resulting Lab MICROBIOLOGY - GENERAL ORDERABLES Performing Organization Address City/State/[facility] Co de Phone Number [facility] [address] [place] [address] documented in this encounter Visit Diagnoses Not on filedocumented in this encounter Care Teams Investigations Director Relationship Specialty Start Date End Date Unknown, Provider, PCP - General 04/13/13 09/02/21 Tim Kim MD [address] [place] [address] PCP - General 09/03/21 documented as of this encounter
--- OUTSIDE RECORDS SUMMARY | 2024-02-02 02:37 | XMS_ITS | Encounter Summary ---
Author Organization [facility] Address [address] [place] [address] Care Team Providers Care Larry Operator Name Role Phone Tim Kim MD Primary Care Provider Encounter Details Date Type Department Care Team (Late st Contact Info) Description 10/21/2021 Lab Requisition [facility] Pathology & Laboratory Medicine [address] [address] Leilani Hampton, ROUTE RELIEF DRIVER [address] [place] [phone] Encounter for other general examination Social History [...] Info) Description 04/28/2024 14:45 EDT Office Visit [facility] Rheumatology [address] [place] [address] Alan Mann MBBS 111 [facility], [facility] 5 [place] [phone] documented as of this encounter Procedures Procedure Name Priority Date/Time Associated Diagnosis Comments SCREEN TEST Today 10/21/2021 6:30 EDT Encounter for other general examination documented in this encounter Results * SCREEN TEST (10/21/2021 6:30 EDT) Screen Test NEGATIVE 022 17:54 EDT [facility] Comment:CALLED RESULTS ARUN AT [facility] 10/21/21 @ 17:50. FAXED TO LAB @ [phone] Blood VENOUS BLOOD / Unknown 10/21/2021 6:30 EDT 10/21/2021 17:14 EDT Leilani Hampton [facility] BLOOD BANK TESTS Performing Organization Address City/State/[facility] Co de Phone Number [facility] 111 [facility] [place] [address] documented in this encounter Visit Diagnoses Diagnosis Encounter for other general examination documented in this encounter Care Teams Larry Operator Relationship Specialty Start Date End Date Tmi Kim MD [address] [place] [address] PCP - General 09/03/21 documented as of this encounter
--- OUTSIDE RECORDS SUMMARY | 2024-02-02 02:37 | XMS_ITS | Clinical Summary ---
Author Organization [facility] Address [address] [place] [address] Care Team Providers Care Outpatient Services Director Name Role Phone Tim Kim MD Primary Care Provider [phone] Encounters Date Type Department Care Team Description 11/04/2023 Lab Requisition [facility] Pathology & Laboratory Medicine - [address] [address] Outr Resulting Lab, Provider from Last 3 [...] Visit [facility] Rhe[facility] [address] [place] [address] Alan Mann MBBS 111 [facility], [facility] 5 [place] [phone] Health Maintenance Due Date Last Done Comments Hepatitis B Vaccine (1 of 3 - 19+ 3-dose series) 08/27 COVID-19 Vaccine ( season) 2023 Hepatitis C Screen Completed 04/10/2021 Procedures Procedure Name Priority Date/Time Associated Diagnosis Comments RHEUMATOID FACTOR Routine 11/04/2023 11: 40 EDT SSA/SSB PANEL Routine 11/04/2023 11:40 EDT ANTI NUCLEAR AB (SHIKHA), IFA Routine 11/04/2023 11:40 EDT HEPATITIS C AB W REFLEX TO HCV RNA BY PCR Routine 04/10/2021 8:58 EDT from Last 3 Months or Most Recently Relevant to Health Maintenance Results * SSA/SSB PANEL (11/04/2023 11:40 EDT) Ro52 Anitbody, IgG <2.3 <20.0 CU 2023 16:56 EDT [facility] Comment:Results were obtaine d with the A-GasA Flash Ro52 chemiluminescent immunoassay. Values obtained with different manufacturers' assay methods must not be used interchangeably. Ro60 Antibody, IgG <7.0 <20.0 CU 2023 16:56 EDT [facility] Comment:Results were obtaine d with the [employer] QUANTA Flash Ro60 chemiluminescent immunoassay. Values obtained with different manufacturers' assay methods must not be used interchangeably. SSB Antibody, IgG <3.3 <20.0 CU 024 16:56 EDT [facility] Comment:Results were obtaine d with the A-GasA Flash SS-B chemiluminescent immunoassay. Values obtained with different manufacturers' assay methods must not be used interchangeably. Blood VENOUS BLOOD / Unknown 11/04/2023 11:40 EDT 11/04/2023 21:29 EDT Provider Outr Resulting Lab IMMUNOLOGY A ND SEROLOGY ORDERABLES [facility] [address] [place] [address] * RHEUMATOID FACTOR (11/04/2023 11:40 EDT) Rheumatoid Factor 10.5 <12.0 IU/mL 11/05/2023 0:15 EDT [facility] Blood VENOUS BLOOD / Unknown 11/04/2023 11:40 EDT 11/04/2023 21:29 EDT Provider Outr Resulting Lab CHEMISTRY & BLOOD GAS ORDERABLES Performing Organization Address [facility]/ZIP Co de Phone Number [facility] [address] [place], [place] [id number] * ANTI NUCLEAR AB (SHIKHA), IFA (11/04/2023 11:40 EDT) SHIKHA Interpretation Negative Negative 2023 14:44 EDT [facility] Comment:No titer performed, SHIKHA Screen is negative. Blood VENOUS BLOOD / Unknown 11/04/2023 11:40 EDT 11/04/2023 21:29 EDT Narrative [facility] - 11/05/2023 14:44 EDT Results were obtained with the [employer] NOVA Lite HEp-2 SHIKHA Kit by indirect immunofluorescence. Provider Outr Resulting Lab IMMUNOLOGY A ND SEROLOGY ORDERABLES Performing Organization Address [facility]/[place] Co de Phone Number [facility] [address] [place] [address] * HEPATITIS C AB W REFLEX TO HCV RNA BY PCR (04/10/2021 8:58 EDT) Hep C Antibody Negative Negative 04/11/2021 10:07 EDT [facility] Blood VENOUS BLOOD / Unknown 04/10/2021 8:58 EDT 04/10/2021 16:25 EDT Provider Outr Resulting Lab CHEMISTRY & BLOOD GAS ORDERABLES [facility] [address] [place] [address] from Last 3 Months or Most Recently Relevant to Health Maintenance Care Teams Outpatient Services Director Relationship Specialty Start Date End Date Tim Kim MD [address] [place] [address] PCP - General 09/03/21
--- OUTSIDE RECORDS SUMMARY | 2024-02-02 02:37 | XMS_ITS | Encounter Summary ---
Author Organization [facility] Address [address] [place] [address] Care Team Providers Care Lobster Fisherman Name Role Phone Unknown, Provider Primary Care Provider Encounter Details Date Type Department Care Team (Late st Contact Info) Description 04/13/2013 Results Only [facility] Laboratory Services - [facility] ([facility] [address] [place] [address] Unknown, Provider, Social History Tobacco Use Types [...] 04/28/2024 14:45 EDT Office [facility] [place] [address] [place] [address] Alan Mann MBBS 111 [facility], [facility] 5 [place] [phone] documented as of this encounter Procedures Procedure Name Priority Date/Time Associated Diagnosis Comments SCREEN TEST Routine 04/13/2013 16: 03 EDT documented in this encounter Results * SCREEN TEST (04/13/2013 16:03 EDT) Screen Test NEGATIVE [facility] 04/13/2013 16:0 3 EDT Provider Unknown BLOOD BANK TESTS [facility] [address] [place] [address] documented in this encounter Visit Diagnoses Not on filedocumented in this encounter Care Teams Lobster Fisherman Relationship Specialty Start Date End Date Unknown, Provider, PCP - General 04/13/13 09/02/21 documented as of this encounter
--- OUTSIDE RECORDS SUMMARY | 2024-02-02 02:37 | XMS_ITS | Encounter Summary ---
Author Organization [facility] Address [address] [place] [address] Care Team Providers Care Director External Communications Name Role Phone Tim Kim MD Primary Care Provider [phone] Encounter Details Date Type Department Care Team (Late st Contact Info) Description 10/21/2021 Lab Requisition [facility] Pathology & Laboratory Medicine - [address] [address] Jerica Hernandez [address] [place] [address] [place] [address] Encounter for other general examination [...] Info) Description 04/28/2024 14:45 EDT Office Visit [facility] Rheumatology [address] [place] [address] Alan Mann MBBS 111 [facility], [facility] 5 [place] [phone] documented as of this encounter Procedures Procedure [...] explore management options, if applicable. 10/30/2021 16:27 [facility] Final Diagnosis A. PLACENTA: Cordero [...] - No significant histopathologic changes. 10/30/2021 16:27 [facility] Diagnosis Comment Diagnostic rangel - [...] smooth muscle. Sandoval MATHIAS, Edith Dasilva (2020). [place] of Placental Pathology. AFIP Atlases of Tumor and non-Tumor Pathology (Series 5). [place] Registry of Pathology; [place], [place]. Adapted from Nestor RW, Shubham O, Carolina D, Frances F, Magalie V, Corey Arenas; Society for Pediatric Pathology, Section, Amniotic Fluid Infection Nosology Committee. 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 Pediatr Dev Pathol. 2002-Apr;6(5):435-4 8. 10/30/2021 16:27 [facility] Attestation By the signature below, the attending physician certifies that they have 1) personally conducted a gross and/or microscopic examination of the described specimen(s), and/or personally interpreted the results of laboratory testing of the described specimen(s), and 2) personally rendered or confirmed the above diagnosis. 10/30/2021 16:27 [facility] at 1627 Clinical History Active labor, 38.6 weeks 10/30/2021 16:27 [facility] Gross Description A. Received in [...] and has a partly gelatinous cut surface. Correspondence Clerk sections are submitted as follows: BLOCK [...] ASHLEY(ASCP) 10/22/2021 14:27 10/30/2021 16:27 EDT [facility] Performing Lab [facility] 16:27 EDT [facility] Scanned Images 10/30/2021 16:27 EDT [facility] Tissue PLACENTAL STRUCTURE / Unknown 10/20/2021 21:46 EDT 10/21/2021 17:21 EDT Jerica Hernandez PATHOLOGY ORDERABLES [facility] [address] [place] [address] documented in this encounter Visit Diagnoses Diagnosis Encounter for other general examination documented in this encounter Care Teams Director External Communications Relationship Specialty Start Date End Date Tim Kim MD [address] [place] [address] PCP - General 09/03/21 documented as of this encounter
--- OUTSIDE RECORDS SUMMARY | 2024-02-02 02:37 | XMS_ITS | Encounter Summary ---
Author Organization [facility] Address [address] [place] [address] Care Team Providers Care Bag Tester Name Role Phone Tim Kim MD Primary Care Provider [phone] Encounter Details Date Type Department Care Team (Late st Contact Info) Description 11/04/2023 Lab Requisition [facility] Pathology & Laboratory Medicine - [address] [address] Outr Resulting Lab, Provider Social History Tobacco [...] Info) Description 04/28/2024 14:45 EDT Office Visit [facility] Rheumatology [address] [place] [address] Alan Mann MBBS [address] [place] [address], [facility] [address] [place] [phone] documented as of this encounter Procedures Procedure Name Priority Date/Time Associated Diagnosis Comments SSA/SSB PANEL Routine 11/04/2023 11:40 EDT RHEUMATOID FACTOR Routine 11/04/2023 11: 40 EDT ANTI NUCLEAR AB (SHIKHA), IFA Routine 11/04/2023 11:40 EDT documented in this encounter Results * RHEUMATOID FACTOR (11/04/2023 11:40 EDT) Rheumatoid Factor 10.5 <12.0 IU/mL 11/05/2023 0:15 EDT [facility] Blood VENOUS BLOOD / Unknown 11/04/2023 11:40 EDT 11/04/2023 21:29 EDT Provider Outr Resulting Lab CHEMISTRY & BLOOD GAS ORDERABLES Performing Organization Address [facility] Co de Phone Number [facility] [address] [place] [address] * SSA/SSB PANEL (11/04/2023 11:40 EDT) Ro52 Anitbody, IgG <2.3 <20.0 CU 2023 16:56 EDT [facility] Comment:Results were obtaine d with the NearboxA Flash Ro52 chemiluminescent immunoassay. Values obtained with different manufacturers' assay methods must not be used interchangeably. Ro60 Antibody, IgG <7.0 <20.0 CU 2023 16:56 EDT [facility] Comment:Results were obtaine d with the NearboxA Flash Ro60 chemiluminescent immunoassay. Values obtained with different manufacturers' assay methods must not be used interchangeably. SSB Antibody, IgG <3.3 <20.0 CU 024 16:56 EDT [facility] Comment:Results were obtaine d with the NearboxA Flash SS-B chemiluminescent immunoassay. Values obtained with different manufacturers' assay methods must not be used interchangeably. Blood VENOUS BLOOD / Unknown 11/04/2023 11:40 EDT 11/04/2023 21:29 EDT Provider Outr Resulting Lab IMMUNOLOGY A ND SEROLOGY ORDERABLES Performing Organization Address [facility]/ZIP Co de Phone Number [facility] [address] [place], [place] [id number] * ANTI NUCLEAR AB (SHIKHA), IFA (11/04/2023 11:40 EDT) SHIKHA Interpretation Negative Negative 2023 14:44 EDT [facility] Comment:No titer performed, SHIKHA Screen is negative. Blood VENOUS BLOOD / Unknown 11/04/2023 11:40 EDT 11/04/2023 21:29 EDT Narrative [facility] - 11/05/2023 14:44 EDT Results were obtained with the [employer] NOVA Lite HEp-2 SHIKHA Kit by indirect immunofluorescence. Provider Outr Resulting Lab IMMUNOLOGY A ND SEROLOGY ORDERABLES [facility] [address] [place] [address] documented in this encounter Visit Diagnoses Not on filedocumented in this encounter Care Teams Bag Tester Relationship Specialty Start Date End Date Tim Kim MD [address] [place], [place] [id number] PCP - General 09/03/21 documented as of this encounter
--- OUTSIDE RECORDS SUMMARY | 2024-02-02 02:37 | XMS_ITS | Encounter Summary ---
Author Organization [facility] Address [address] [place] [address] Care Team Providers Care Desizing Machine Operator Head End Name Role Phone Unknown, Provider Primary Care Provider [phone] Tim Kim MD Primary Care Provider Encounter Details Date Type Department Care Team (Late st Contact Info) Description 07/27/2020 Lab Requisition [facility] Pathology & Laboratory Medicine - [address] [address] Outr Resulting Lab, Provider Social History Tobacco [...] Info) Description 04/28/2024 14:45 EDT Office Visit [facility] Rheumatology [address] [place] [address] Alan Mann MBBS 111 [facility], [facility] 5 [place] [phone] documented as of this encounter Procedures Procedure Name Priority Date/Time Associated Diagnosis Comments CHLAMYDIA/N. GONORRHOEAE AMPLIFIED NUCLEIC ACID Routine 07/27/2020 11:25 EST documented in this encounter Results * CHLAMYDIA/N. GONORRHOEAE AMPLIFIED RNA (07/27/2020 11:25 EST) Neisseria gonorrhoeae Result Negative Negative 07/30/2020 14:21 EST [facility] Chlamydia trachomatis Result Negative Negative 07/30/2020 14:21 EST [facility] Swab ENTIRE WALL OF CERVIX / Unknown 07/27/2020 11:25 EST 07/27/2020 22:04 EST Provider Outr Resulting Lab MICROBIOLOGY - GENERAL ORDERABLES Performing Organization Address City/State/[facility] Co de Phone Number [facility] [address] [place] [address] documented in this encounter Visit Diagnoses Not on filedocumented in this encounter Care Teams Desizing Machine Operator Head End Relationship Specialty Start Date End Date Unknown, Provider, PCP - General 04/13/13 09/02/21 Tim Kim MD [address] [place] [address] PCP - General 09/03/21 documented as of this encounter
--- OUTSIDE RECORDS SUMMARY | 2024-02-02 02:37 | XMS_ITS | Encounter Summary ---
Author Organization [facility] Address [address] [place] [address] Care Team Providers Care Riveter Name Role Phone Unknown, Provider Primary Care Provider [phone] Tim Kim MD Primary Care Provider Encounter Details Date Type Department Care Team (Late st Contact Info) Description 07/20/2020 Lab Requisition [facility] Pathology & Laboratory Medicine - [address] [address] Outr Resulting Lab, Provider Social History Tobacco [...] Info) Description 04/28/2024 14:45 EDT Office [facility] [place] [address] [place] [address] Alan Mann MBBS 111 [facility] 5 [place] [address] documented as of this encounter Procedures Procedure Name Priority Date/Time Associated Diagnosis Comments SPEP, INCLUDES QUANTITATION OF MONOCLONAL SPIKE Routine 07/20/2020 10:45 EST documented in this encounter Results * SPEP, INCLUDES QUANTITATION OF MONOCLONAL SPIKE (07/20/2020 10:45 EST) Total Protein 7.3 6.3 - 8.2 g/dL 07/23/2020 12:38 [facility] Albumin % 61.2 55.8 - 66.1 % 07/23/2020 12:38 [facility] Alpha-1 % 4.3 2.9 - 4.9 % 07/23/2020 12:38 [facility] Alpha-2 % 10.1 7.1 - 11.8 % 07/23/2020 12:38 [facility] Beta % 9.9 8.4 - 13.1 % 07/23/2020 12:38 [facility] Gamma % 14.5 11.1 - 18.8 % 07/23/2020 12:38 [facility] SPEP Comment No apparent monoclonal protein seen on serum electrophoresis 07/23/2020 12:38 [facility] Comment:See scanned/suppleme ntary report. Blood VENOUS BLOOD / Unknown 07/20/2020 10:45 EST 07/20/2020 21:02 EST Provider Outr Resulting Lab CHEMISTRY & BLOOD GAS ORDERABLES [facility] [address] [place] [address] documented in this encounter Visit Diagnoses Not on filedocumented in this encounter Care Teams Riveter Relationship Specialty Start Date End Date Unknown, MD Lianna PCP - General 04/13/13 09/02/21 Tim Kim MD [address] [place] [address] PCP - General 09/03/21 documented as of this encounter
--- OUTSIDE RECORDS SUMMARY | 2024-02-02 02:37 | XMS_ITS | Referral Summary ---
Author Organization [facility] Address [address] [place] [address] Care Team Providers Care Customer Service Operator Name Role Phone Tim Kim MD Primary Care Provider [phone] Encounters Date Type Department Care Team Description 11/04/2023 Lab Requisition [facility] Pathology & Laboratory Medicine - [address] [address] Outr Resulting Lab, Provider from Last 3 [...] Info) Description 04/28/2024 14:45 EDT Office Visit [facility] [place] [facility] Rheumatology [address] [place] [address] Alan Mann MBBS 111 [facility], [facility] 5 [place] [phone] Procedures Procedure Name Priority Date/Time Associated Diagnosis [...] IgG <2.3 <20.0 CU 2023 16:56 EDT [facility] Comment:Results were obtaine d with the [employer] Flash Ro52 chemiluminescent immunoassay. Values obtained with different manufacturers' assay methods must not be used interchangeably. Ro60 Antibody, IgG <7.0 <20.0 CU 2023 16:56 EDT [facility] Comment:Results were obtaine d with the [employer] Flash Ro60 chemiluminescent immunoassay. Values obtained with different manufacturers' assay methods must not be used interchangeably. SSB Antibody, IgG <3.3 <20.0 CU 024 16:56 EDT [facility] Comment:Results were obtaine d with the [employer] Flash SS-B chemiluminescent immunoassay. Values obtained with different manufacturers' assay methods must not be used interchangeably. Blood VENOUS BLOOD / Unknown 11/04/2023 11:40 EDT 11/04/2023 21:29 EDT Provider Outr Resulting Lab IMMUNOLOGY A ND SEROLOGY ORDERABLES Performing Organization Address City/[facility]/ZIP Co de Phone Number [facility] [address] [place] [address] * RHEUMATOID FACTOR (11/04/2023 11:40 EDT) Rheumatoid Factor 10.5 <12.0 IU/mL 11/05/2023 0:15 EDT [facility] Blood VENOUS BLOOD / Unknown 11/04/2023 11:40 EDT 11/04/2023 21:29 EDT Provider Outr Resulting Lab CHEMISTRY & BLOOD GAS ORDERABLES Performing Organization Address City/[facility]/ZIP Co de Phone Number [facility] [address] [place] [address] * ANTI NUCLEAR AB (SHIKHA), IFA (11/04/2023 11:40 EDT) SHIKHA Interpretation Negative Negative 2023 14:44 EDT [facility] Comment:No titer performed, SHIKHA Screen is negative. Blood VENOUS BLOOD / Unknown 11/04/2023 11:40 EDT 11/04/2023 21:29 EDT Narrative [facility] - 11/05/2023 14:44 EDT Results were obtained with the [employer] NOVA Lite HEp-2 SHIKHA Kit by indirect immunofluorescence. Provider Outr Resulting Lab IMMUNOLOGY A ND SEROLOGY ORDERABLES [facility] [address] [place] [address] * HEPATITIS C AB W REFLEX TO HCV RNA BY PCR (04/10/2021 8:58 EDT) Hep C Antibody Negative Negative 04/11/2021 10:07 EDT [facility] Blood VENOUS BLOOD / Unknown 04/10/2021 8:58 EDT 04/10/2021 16:25 EDT Provider Outr Resulting Lab CHEMISTRY & BLOOD GAS ORDERABLES [facility] [address] [place] [address] from Last 3 Months or Most Recently Relevant to Health Maintenance Care Teams Customer Service Operator Relationship Specialty Start Date End Date Tim Kim MD [address] [place] [address] PCP - General 09/03/21
--- OUTSIDE RECORDS SUMMARY | 2024-02-02 02:37 | XMS_ITS | Encounter Summary ---
Author Organization [facility] Address [address] [place] [address] Care Team Providers Care Aerial Erector Name Role Phone Unknown, Provider Primary Care Provider [phone] Tim Kim MD Primary Care Provider [phone] Encounter Details Date Type Department Care Team (Late st Contact Info) Description 02/07/2020 Lab Requisition [facility] Pathology & Laboratory Medicine - [address] [address] Outr Resulting Lab, Provider Social History Tobacco [...] Info) Description 04/28/2024 14:45 EDT Office Visit [facility] Rheumatology [address] [place] [address] Alan Mann MBBS 111 [facility], [facility] 5 [place] [phone] documented as of this encounter Procedures Procedure [...] MICROBIOLOGY - GENERAL ORDERABLES Performing Organization Address City/[facility]/ZIP Co de Phone Number [facility] [address] [place] [address] * COVID-19 TESTING (02/07/2020 17:18 EDT) COVID-19 rt-PCR Result Negative Negative 02/08/2020 1:12 EDT [facility] Comment: This test has not [...] history, and epidemiological information. Performed on the Grid[employer]her Fusion instrument Performing Lab [place] [facility] 02/08/2020 1:12 EDT [facility] Swab 02/07/2020 17:1 8 EDT 02/07/2020 21:23 EDT Provider Outr Resulting Lab MICROBIOLOGY - GENERAL ORDERABLES Performing Organization Address City/[facility]/ZIP Co de Phone Number [facility] [address] [place] [address] documented in this encounter Visit Diagnoses Not on filedocumented in this encounter Care Teams Aerial Erector Relationship Specialty Start Date End Date Unknown, Provider, PCP - General 04/13/13 09/02/21 Tim Kim MD [address] [place] [address] PCP - General 09/03/21 documented as of this encounter
--- NOTE | 2024-02-02 05:49 | NUR.NOTE ---
Referral sent to [facility] for persistent L eye pain to be seen as laverne as possible
[2024-02-02] MEDS: Normal Saline Flush 10 ML SYR IVP (15:06)
[2024-02-02] MEDS: Gadoterate meglumine 20 ML SYRINGE 14 ML IVP (15:07)
== END ==
PROVIDERS: PCP Nurse Practitioner Family; Visit Provider Emergency Medicine
DX: H53.8 Other visual disturbances (principal); H57.12 Ocular pain, left eye
CPT/HCPCS: 70553; 70543

== ENCOUNTER 2024-02-02 10:39 | Emergency (ER) | payer MEDICAID, SELFPAY ==
[2024-02-02 10:43] VITALS: BP 127/51; PULSE 80; RESP 16; TEMP 36.6; O2SAT 100
--- NOTE | 2024-02-02 11:16 | ED.GENADUL_ITS ---
Discharge Plan Disposition Patient Disposition: Home Condition: Stable Discharge Details Clinical Impression: Acute left eye pain, Vision changes, Migraine with status migrainosus Primary Care Provider: Avis Koch ED Provider: Rafaela Zuluaga Home Meds and New Rx's Prescriptions: Continued lamotrigine 100 mg tablet 150 mg PO DAILY Aimovig Autoinjector 140 mg/mL auto-injector 140 mg subcut QMONTH Qty: 1 11RF lorazepam 0.5 mg tablet 0.5 mg PO ONCE PRN (Reason: anxiety/claustrophobia) Qty: 2 0RF Rx Instructions: Take one tablet 30min prior to MRI. Ok to take second at time of MRI if still anxious. Do not drive after taking. naratriptan 2.5 mg tablet See Rx Instructions PO .COMPLEX Qty: 12 3RF Rx Instructions: take 1 tab at onset of headache; if no relief may repeat 1 tab after at least 4 hrs; max = 2 tabs/24 hrs PO Viibryd 10 mg (7)- 20 mg (23) tablets,dose pack 40 dose pk PO DIRECTED Patient Comments: TAKE ONE BY MOUTH EVERY DAY WITH FOOD Discharge Instructions Instructions: Headache, Adult ED Additional Instructions: MRI is unremarkable no evidence for neuritis or demyelinating disease or any other intracranial abnormality. You have an appointment with [facility] in [place]. 8:15 in the morning. Please keep this appointment. Take the nausea medication as directed along with the lorazepam. Take Tylenol 1 or 2 tablets every 4-6 hours as needed for pain. Follow up with primary care provider in 3-5 days. Return to ED sooner if any worsening pain, vision problems, weakness on one side of your body, confusion or concerns. Increase oral fluids. Referrals: [facility] [Outside] - 02/03/24 8:15 am Avis Koch [Primary Care Provider] - 5 days Discharge Data Discharge Date/Time-TO BE ENTERED AT DEPARTURE: 02/02/24 16:01 HPI General Mode of arrival: ambulatory . Date/Time Provider Initiated Documentation: 02/02/24 10:45 . Limitations to Documentation: no limitations . Information obtained by: patient, RN notes reviewed and old records reviewed . HPI Narrative: 33-year-old female presents to the ER with a chief complaint of worsening left eye pain and eye fogginess. She was seen here twice in the last couple of days had extensive evaluation including CTA of brain. She does have an MRI scheduled for approximately 2 PM today of her MRI brain and orbits. She reports that the oxycodone that she was given made her nauseous and is not helping the pain. She is alert and oriented x 4, EOMs intact, pupils are equal and reactive. At this time I did defer fluorescein exam or any further examination due to it being previously done. Related Data Home Medications ?Medication ?Instructions ?Recorded ?Confirmed lamotrigine 100 mg tablet 150 mg PO DAILY 03/25/23 02/02/24 vilazodone 10 mg (7)-20 mg (23) 40 dose pk PO DIRECTED 03/25/23 02/02/24 tablets in a titration pack (Viibryd) erenumab-aooe 140 mg/mL 140 mg subcut QMONTH #1 mL 09/15/23 02/02/24 subcutaneous auto-injector (Aimovig Autoinjector) lorazepam 0.5 mg tablet 0.5 mg PO ONCE PRN 09/22/23 02/02/24 anxiety/claustrophobia #2 tabs naratriptan 2.5 mg tablet See Rx Instructions PO .COMPLEX 02/01/24 02/02/24 #12 tabs Previous Rx's ?Medication ?Instructions ?Recorded erenumab-aooe 140 mg/mL 140 mg subcut QMONTH #1 mL 09/15/23 subcutaneous auto-injector (Aimovig Autoinjector) lorazepam 0.5 mg tablet 0.5 mg PO ONCE PRN 09/22/23 anxiety/claustrophobia #2 tabs naratriptan 2.5 mg tablet See Rx Instructions PO .COMPLEX 02/01/24 #12 tabs Allergies Allergy/AdvReac Type Severity Reaction Status Date / Time ibuprofen Allergy Severe Skin Rash Verified 02/02/24 10:45 paroxetine (From Paxil) Allergy Severe throat Verified 02/02/24 10:45 swells penicillin G Allergy Severe Anaphylaxis Verified 02/02/24 10:45 codeine Allergy Intermediate HIVES Verified 02/02/24 10:45 General Stated Complaint: EyeProblem FRITZ: 3 Review of Systems All systems reviewed & are unremarkable except as noted in HPI and below Constitutional Constitutional: Reports as per HPI and Reports headache(s) Eyes Eyes: Reports change in vision (reports as foggy), Denies diplopia, Reports eye pain and Reports photophobia ENT Ears, Nose, Mouth, and Throat: Reports headache(s) Cardiovascular Cardiovascular: Denies chest pain and Denies dyspnea Respiratory Respiratory: Denies cough and Denies dyspnea Neurologic Neurologic: Reports headache(s) Exam Narrative Exam Narrative: Constitutional: Alert and oriented x3. Appears stated age. Normal body habitus. Patient wearing sunglasses. Head: Normocephalic, no trauma. Eyes: Pupils PERRL, Red reflex noted, EOM's intact. Eyelids symmetrical without lesions, discharge, or swelling. ENT: Bilateral TM's WNL, External ear normal to inspection, no mastoid TTP, swelling, or erythema, Nasal turbinates WNL, no nasal discharge. Normal dentition, Posterior pharynx WNL, no exudate. Chest: RRR, Normal S1, S2, distal pulses intact. Resp: Lungs clear to auscultation bilaterally, no wheezes, rales, or rhonchi. Abdomen: Soft, non-distended, Normoactive bowel sounds all 4 quads. Musculoskeletal: Normal gait, Moves all 4 extremities without difficulty. Skin: No suspicious rashes or lesions. Capillary refill less than 2 sec. Neurologic: Cranial nerves II-XII intact. Alert and oriented x 3. Motor: No deficits noted. Sensory: Intact bilaterally all 4 extremities. Hematologic/Lymphatic: No ecchymosis, no lymphadenopathy. Course Vital Signs Vital signs: Vital Signs Temperature 36.6 C 02/02/24 10:43 Pulse 80 02/02/24 10:43 Respiratory Rate 16 02/02/24 10:43 Blood Pressure 127/51 L 02/02/24 10:43 Pulse Oximetry 100 02/02/24 10:43 Temperature 36.6 C 02/02/24 10:43 Temperature Source Temporal Artery Scan 02/02/24 10:43 Pulse 80 02/02/24 10:43 Respiratory Rate 16 02/02/24 10:43 Respiratory Effort Normal, Non-Labored 02/02/24 10:46 Blood Pressure 127/51 L 02/02/24 10:43 Blood Pressure Position Sitting 02/02/24 10:43 Pulse Oximetry 100 02/02/24 10:43 Oxygen Delivery Method Room Air 02/02/24 10:43 Oxygen Flow Rate 0 02/02/24 10:43 Medical Decision Making 33-year-old female presents to the ER with a chief complaint of worsening left eye pain and eye fogginess. She was seen here twice in the last couple of days had extensive evaluation including CTA of brain. She does have an MRI scheduled for approximately 2 PM today of her MRI brain and orbits. She reports that the oxycodone that she was given made her nauseous and is not helping the pain. She is alert and oriented x 4, EOMs intact, pupils are equal and reactive. At this time I did defer fluorescein exam or any further examination due to it being previously done. Patient has no focal neurodeficits noted. Neck is supple. Labs and repeat workup deferred at this time. I did make a call to [facility] and discussed patient case in details they are able to get her in at 08 10 in the AM and will put her on a cancellation list for this afternoon if available. Patient informed. She verbalized understanding. Patient was placed on 6 L oxygen nasal cannula. 5 mg Compazine, 25 mg Benadryl, lorazepam 0.5mg and Zofran 4mg given here. Patient does state she gets claustrophobic. 1216: On patient re-evaluation she is sleeping, breathing eupneic, awaiting MRI. Patient back from MRI, is still complaining of 6/10 pain. Given 30mg Toradol IVP. MRI results WNL, see below. Discussed results with patient, home care and follow up appointment with [facility] tomorrow. Discussed strict return instructions, she verbalizes understanding. Patient discharged in hemodynamically stable condition, alert and oriented, all of her questions were answered to the best of my ability. This text was generated using Coin-[employer] system, please disregard any oddities of phrase or misspellings. Medical Records Medical records reviewed: Yes I reviewed the patient's medical records. Imaging Data Radiologic Study: Imaging: MRI Radiologist's impression: EXAM: MR BRAIN ORBIT FACE NECK WO/W CLINICAL HISTORY: PAINFUL BLURRED VISION LT EYE,? OPTIC NEURITIS VS MS TECHNIQUE: Multiplanar multisequence MRI of the brain was performed. CONTRAST MATERIAL: IV Contrast: 14 ML of Dotarem contrast administered. COMPARISON: MR MR BRAIN WO from 10/06/2023 FINDINGS: BRAIN: VENTRICLES AND EXTRA AXIAL SPACES: Normal in size and morphology for the patient's age. HEMORRHAGE: None. CEREBRAL PARENCHYMA: No focus of restricted diffusion to suggest acute infarct. No space-occupying lesion identified. No abnormal high signal lesions in the white matter. MIDLINE SHIFT: None. BRAINSTEM/CEREBELLUM: Normal. CALVARIUM: Normal. ENHANCEMENT: No suspicious enhancement identified. VISUALIZED PARANASAL SINUSES/MASTOIDS: Clear. [place] OF BRIDGES: Normal flow void. PITUITARY GLAND: Unremarkable. OTHER FINDINGS: None ORBITS: ORBITS: The anterior and posterior chambers of the globes are intact. The retrobulbar fat is unremarkable. Extraocular muscles are unremarkable. OPTIC NERVES: The intracranial and extracranial portions of the optic nerves are within normal limits. Optic chiasm is within normal limits. No MRI evidence of optic neuritis identified. SOFT TISSUES: The superior opthalmic veins are unremarkable. Remaining soft tissues are unremarkable. OTHER FINDINGS: None. IMPRESSION: Unremarkable MRI of the brain and orbits. No evidence neuritis or demyelinating disease Lab Data Lab results reviewed: Yes I reviewed the patient's lab results. Lab results narrative: From last two visits. Quality:SDOH Health Related Social Needs: No Data to Display PFSH All Active Problems (Updated 02/02/24 @ 15:46 by Kindra Heath NP) Acute left eye pain (Acute) Vision changes (Acute) Eye pain (Acute) Right leg weakness (Acute) Right ankle instability (Acute) URI, acute (Acute) COVID (Acute) Migraine headache without aura (Acute) Migraine headache with aura (Acute) Migraine with status migrainosus (Acute) 10/22/21. prophylactic medication changed to Propranalol 20mg BID. Pt will f/u with Dr. Nunez Encounter for sterilization (Acute) Depression with anxiety (Chronic) Leg pain (Acute) Idiopathic small fiber peripheral neuropathy (Acute) Medical History Sterilization consult Fibromyalgia History of prior with SGA History of anorexia nervosa History of penicillin allergy Family history of thyroid disease in mother Mother had thyroidectomy as well as MGM PTSD (post-traumatic stress disorder) Pt. states nothing is a potential trigger Suicidal ideation history of SI ADHD Opioid dependence No MAT for 6 years Tobacco use Hx of varicella Acute recurrent otitis media Idiopathic peripheral neuropathy Surgical History Status post primary low transverse section 10/20/2021. Arrest of labor. No significant past surgical history Family History Mother Devic's syndrome Headache Sister Cancer bone marrow cancer Social History Smoking/Tobacco Use Status: Current-Occasional Tobacco Type: e-cigarettes Smoking risk assessment performed?: Yes Alcohol Intake: current Alcohol Intake frequency: a few times a month Alcohol type: beer Drug use: Rarely Substance use type: marijuana Details: last time smoked over a year per pt. 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 Date GA/Weeks # Preg Succ Route Wgt Sex Labor Lgth Anesth esia Location [facility] 04/11/13 40 No vaginal 2409.709 g Female 14 [facility] 10/20/21 39 No 4082.331 g Male Ganesh Hernandez Delivery Date: 04/11/13 Last Updated by: Leilani Putnam CNM SGA, Rachelle Delivery Date: 10/20/21 Last Updated by: ARI Hunter Sign Out Sign Out Data: Sign Out Comment: Pending MRI result, Here with left eye pain and pressure and foggy vision. Has appt with José tomorrow am. Last updated by Kindra Heath NP at 02/02/24 15:39 PAWSS Have you Been Recently Intoxicated or Drunk Within the Last 30 days?: No Have you Ever Experienced Previous Episodes of Alcohol Withdrawal?: No Have you ever Experienced Withdrawal Seizures?: No Have you ever Experienced Delirium Tremens(DT)s?: No Have you ever undergone Alcohol Rehabilitation Treatment (i.e, inpt ot outpatient treatment programs)?: No Have you ever Experienced Blackouts?: No Have you ever Combined Alcohol with other Downers within the last 90 days?: No Have you ever Combined Alcohol with any other Substance of Abuse during the last 90 days?: No Positive Blood Alcohol level on Presentation? [PCS.BAL]: No Evidence of Increased Autonomic Activity (i.e. HR>120, tremor, sweating, agitation, nausea)?: No Result: 0
[2024-02-02] MEDS: diphenhydrAMINE 25 MG CAP PO (11:24)
[2024-02-02] MEDS: Prochlorperazine 5 MG TAB PO (11:25)
[2024-02-02] MEDS: LORazepam 0.5 MG TAB PO (11:25)
[2024-02-02] MEDS: Ondansetron O.D.T. 4 MG TABEF 8 MG PO (11:25)
--- NOTE | 2024-02-02 11:32 | NUR.NOTE ---
Faxed patient's 2 previous visits to [facility] and the CT report. Nursing Note:
[2024-02-02 13:51] VITALS: BP 118/63; PULSE 80; RESP 18; O2SAT 98
[2024-02-02] MEDS: Ketorolac 30 MG/ML VIAL (15:56)
[2024-02-02 15:59] VITALS: BP 115/75; PULSE 74; RESP 16; O2SAT 98
[2024-02-02] MEDS: Ondansetron O.D.T. 4 MG TABEF, 3 TABS/BTL 12 MG (16:01)
--- NOTE | 2024-02-02 20:06 | NUR.NOTE ---
Nursing Note:IN chart, [facility] called to have information from visit faxed to their ER
--- NOTE | 2024-02-04 12:08 | NUR.NOTE ---
Accessed Pt chart to print labs from 01/30 to fax to [facility].
== END 2024-02-02 16:01 | disposition home or self-care (01) ==
PROVIDERS: Emergency Provider Nurse Practitioner Family; PCP Nurse Practitioner Family
DX: H57.12 Ocular pain, left eye (principal); H53.8 Other visual disturbances; G43.909 Migraine, unspecified, not intractable, without status migrainosus; F17.290 Nicotine dependence, other tobacco product, uncomplicated
CPT/HCPCS: 96374; 99284; J1885

== ENCOUNTER 2024-02-04 12:48 | Emergency (ER) | payer MEDICAID, SELFPAY ==
[2024-02-04] VITALS (14 sets, daily range): BP systolic 117; BP diastolic 87; PULSE 64–77; RESP 12–23; TEMP 36.9; O2SAT 95–100
--- NOTE | 2024-02-04 12:45 | RT.EKG_ITS ---
APPROVED REPORT Exam: Resting ECG Reason for Exam: Dizzy Patient Location: E HR:69 bpm ECG Measurements Heart Rate 69 AXIS MI 143 P 23 QRSd 85 QRS 60 QT 376 T 63 QTc 402 Conclusion Sinus rhythm...normal P axis, V-rate 60- 99 sinus rhtyhm, normal axis, non ischemic
--- OUTSIDE RECORDS SUMMARY | 2024-02-04 12:53 | XMS_ITS | Clinical Summary ---
Author Organization [facility] Address [address] [place] [address] Care Team Providers Care Maintenance Mechanic Telephone Name Role Phone Tim Kim MD Primary Care Provider [phone] Encounters Date Type Department Care Team Description 11/04/2023 Lab Requisition [facility] Pathology & Laboratory Medicine - [address] [address] Outr Resulting Lab, Provider from Last 3 [...] Info) Description 04/28/2024 14:45 EDT Office Visit [facility] Rhe[place]ology [address] [place] [address] Alan Mann MBBS 111 [facility], [facility] 5 [place] [phone] Health Maintenance Due Date Last Done Comments [...] IgG <2.3 <20.0 CU 2023 16:56 EDT [facility] Comment:Results were obtaine d with the Govenlock GreenA Flash Ro52 chemiluminescent immunoassay. Values obtained with different manufacturers' assay methods must not be used interchangeably. Ro60 Antibody, IgG <7.0 <20.0 CU 2023 16:56 EDT [facility] Comment:Results were obtaine d with the Addy QUANTA Flash Ro60 chemiluminescent immunoassay. Values obtained with different manufacturers' assay methods must not be used interchangeably. SSB Antibody, IgG <3.3 <20.0 CU 024 16:56 EDT [facility] Comment:Results were obtaine d with the Govenlock GreenA Flash SS-B chemiluminescent immunoassay. Values obtained with different manufacturers' assay methods must not be used interchangeably. Blood VENOUS BLOOD / Unknown 11/04/2023 11:40 EDT 11/04/2023 21:29 EDT Provider Outr Resulting Lab IMMUNOLOGY A ND SEROLOGY ORDERABLES [facility] [address] [place] [address] * RHEUMATOID FACTOR (11/04/2023 11:40 EDT) Rheumatoid Factor 10.5 <12.0 IU/mL 11/05/2023 0:15 EDT [facility] Blood VENOUS BLOOD / Unknown 11/04/2023 11:40 EDT 11/04/2023 21:29 EDT Provider Outr Resulting Lab CHEMISTRY & BLOOD GAS ORDERABLES Performing Organization Address [facility]/ZIP Co de Phone Number [facility] [address] [place], [place] [address] * ANTI NUCLEAR AB (SHIKHA), IFA (11/04/2023 11:40 EDT) SHIKHA Interpretation Negative Negative 2023 14:44 EDT [facility] Comment:No titer performed, SHIKHA Screen is negative. Blood VENOUS BLOOD / Unknown 11/04/2023 11:40 EDT 11/04/2023 21:29 EDT Narrative [facility] - 11/05/2023 14:44 EDT Results were obtained with the GreenerU NOVA Lite HEp-2 SHIKHA Kit by indirect immunofluorescence. Provider Outr Resulting Lab IMMUNOLOGY A ND SEROLOGY ORDERABLES Performing Organization Address [facility] Co de Phone Number [facility] [address] [place] [address] * HEPATITIS C AB W REFLEX TO HCV RNA BY PCR (04/10/2021 8:58 EDT) Hep C Antibody Negative Negative 04/11/2021 10:07 EDT [facility] Blood VENOUS BLOOD / Unknown 04/10/2021 8:58 EDT 04/10/2021 16:25 EDT Provider Outr Resulting Lab CHEMISTRY & BLOOD GAS ORDERABLES [facility] [address] [place] [address] from Last 3 Months or Most Recently Relevant to Health Maintenance Care Teams Maintenance Mechanic Telephone Relationship Specialty Start Date End Date Tim Kim MD [address] [place] [address] PCP - General 09/03/21
--- OUTSIDE RECORDS SUMMARY | 2024-02-04 12:53 | XMS_ITS | Encounter Summary ---
Author Organization [facility] Address [address] [place] [address] Care Team Providers Care Feeder Operator Automatic Name Role Phone Unknown, Provider Primary Care Provider [phone] Tim Kim MD Primary Care Provider [phone] Encounter Details Date Type Department Care Team (Late st Contact Info) Description 04/10/2021 Lab Requisition [facility] Pathology & Laboratory Medicine - [address] [address] Outr Resulting Lab, Provider Social History Tobacco [...] Info) Description 04/28/2024 14:45 EDT Office Visit [facility] Rhe[facility] [address] [place] [address] Alan Mann MBBS 111 [facility], [facility] 5 [place] [phone] documented as of this encounter Procedures Procedure Name Priority Date/Time Associated Diagnosis Comments RUBELLA IGG ANTIBODY Routine 04/10/2021 8:58 EDT VARICELLA IGG ANTIBODY Routine 04/10/2021 8:58 EDT documented in this encounter Results * VARICELLA IGG ANTIBODY (04/10/2021 8:58 EDT) Varicella IgG Ab Positive See Note 04/11/2021 10:06 EDT [facility] Comment:Presence of detectab le Varicella Zoster virus IgG antibodies. Blood VENOUS BLOOD / Unknown 04/10/2021 8:58 EDT 04/10/2021 16:24 EDT Provider Outr Resulting Lab IMMUNOLOGY A ND SEROLOGY ORDERABLES Performing Organization Address [facility] Co de Phone Number [facility] [address] [place] [address] * RUBELLA IGG ANTIBODY (04/10/2021 8:58 EDT) Rubella IgG Ab Negative See Note 04/11/2021 10:11 EDT [facility] Comment:Sample is considered negative for [...] & BLOOD GAS ORDERABLES Performing Organization Address [facility] Co de Phone Number [facility] [address] [place] [address] documented in this encounter Visit Diagnoses Not on filedocumented in this encounter Care Teams Feeder Operator Automatic Relationship Specialty Start Date End Date Unknown, Provider, PCP - General 04/13/13 09/02/21 Tim Kim MD [address] [place] [address] PCP - General 09/03/21 documented as of this encounter
--- OUTSIDE RECORDS SUMMARY | 2024-02-04 12:53 | XMS_ITS | Encounter Summary ---
Author Organization [facility] [place] [address] Care Team Providers Care E/M Engineer Name Role Phone Tim Kim MD Primary Care Provider [phone] Reason for Visit * Consultation (Routine) - Closed Specialty Diagnoses / Procedures Referred By Contac t Referred To Contact Neurology Diagnoses Pain in leg, unspecified Tim Kim MD [address] [place] [address] [facility] Neurology [address] [place] [phone] Referral ID Status Reason Start Date Expiration Date V isits Requested Visits Authorized [id number] Closed Consult, Test [facility] PCP Updated and/or Approved 07/23/2020 07/23/2021 6 6 Encounter Details Date Type Department Care Team (Latest Contact Info) Description 10/15/2020 1:00 PM EDT Procedure [place] [address] Samy Mckeon MD [facility] [place] [address] Bilateral leg paresthesia; Muscle pain Social History [...] well as recent note from neurology at [facility]. Radha first noted pain in her lower [...] today. She ended up having evaluation in [place]. She had several lab tests per the [facility] neurology notes. This included unremarkable CBC, CMP, TSH, magnesium, CK, CCP, celiac antibodies, Lyme panel, SHIKHA, rheumatoid factor, ESR, CRP. 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 She also had lumbar spine MRI at [facility] and it was unrevealing for an [...] toes downgoing to plantar stimulation. Coordination normal detgth-audd-opwrzf and ulvo-gjiu-deil testing. Gait slow but no ataxia. Antalgic [...] set her up for that here at [facility] although we also discussed that even if positive it would otherwise not policy change clerks supervisor likely. If it was positive further B [...] she like to have that done at [facility] in [facility] we could arrange that for [...] this office visit is 45 minutes including tbqd-tx-oaen time, chart review, and documentation. Time was exclusive of the time for EMG nerve conduction studies. This note was created with voice recognition software. documented in this encounter Plan of Treatment Not on file documented as of this encounter Visit Diagnoses Diagnosis Bilateral leg paresthesia Disturbance of skin sensation Muscle pain Mylagia and myositis, unspecified documented in this encounter Care Teams E/M Engineer Relationship Specialty Start Date End Date Tim Kim MD [address] [place] [address] PCP - General 05/28/10 documented as of this encounter
--- OUTSIDE RECORDS SUMMARY | 2024-02-04 12:53 | XMS_ITS | Encounter Summary ---
Author Organization [facility] Address [address] [place] [address] Care Team Providers Care Rock Climbing Team Member Name Role Phone Tim Kim MD Primary Care Provider [phone] Encounter Details Date Type Department Care Team (Late st Contact Info) Description 10/21/2021 Lab Requisition [facility] Pathology & Laboratory Medicine [address] [address] Leilani Hampton, TURN DOWN ATTENDANT [address] [place] [phone] Encounter for other general examination Social History [...] Info) Description 04/28/2024 14:45 EDT Office Visit [facility] Rheumatology [address] [place] [address] Alan Mann MBBS 111 [facility], [facility] 5 [place] [phone] documented as of this encounter Procedures Procedure Name Priority Date/Time Associated Diagnosis Comments SCREEN TEST Today 10/21/2021 6:30 EDT Encounter for other general examination documented in this encounter Results * SCREEN TEST (10/21/2021 6:30 EDT) Screen Test NEGATIVE 022 17:54 EDT [facility] Comment:CALLED RESULTS ARUN AT [facility] 10/21/21 @ 17:50. FAXED TO LAB @ [phone] Blood VENOUS BLOOD / Unknown 10/21/2021 6:30 EDT 10/21/2021 17:14 EDT Leilani Hampton APN BLOOD BANK TESTS Performing Organization Address City/State/[facility] Co de Phone Number [facility] 111 [facility] [place] [address] documented in this encounter Visit Diagnoses Diagnosis Encounter for other general examination documented in this encounter Care Teams Rock Climbing Team Member Relationship Specialty Start Date End Date Tim Kim MD [address] [place] [address] PCP - General 09/03/21 documented as of this encounter
--- OUTSIDE RECORDS SUMMARY | 2024-02-04 12:53 | XMS_ITS | Encounter Summary ---
Author Organization [facility] Address [address] [place] [address] Care Team Providers Care Data Center Manager Name Role Phone Unknown, Provider Primary Care Provider [phone] Tim Kim MD Primary Care Provider Encounter Details Date Type Department Care Team (Late st Contact Info) Description 04/10/2021 Lab Requisition [facility] Pathology & Laboratory Medicine - [address] [address] Outr Resulting Lab, Provider Social History Tobacco [...] Info) Description 04/28/2024 14:45 EDT Office Visit [facility] Rheumatology [address] [place] [address] Alan Mann MBBS 111 [facility], [facility] 5 [place] [phone] documented as of this encounter Procedures Procedure Name Priority Date/Time Associated Diagnosis Comments HIV 1/2 ANTIGEN AND ANTIBODY, 4TH GENERATION Routine 04/10/2021 8:58 EDT documented in this encounter Results * HIV 1/2 ANTIGEN AND ANTIBODY, 4TH GENERATION (04/10/2021 8:58 EDT) HIV 1 and 2 Antibody/p24 Antigen, 4th Generation Negative Negative 04/11/2021 10:18 EDT [facility] Comment: If acute HIV-1 infection is suspected in a high risk ??patient, submit plasma specimen for HIV-1 RNA quantitation test. Fourth Generation assay performed on the Siemens [employer]. Blood VENOUS BLOOD / Unknown 04/10/2021 8:58 EDT 04/10/2021 16:24 EDT Provider Outr Resulting Lab IMMUNOLOGY A ND SEROLOGY ORDERABLES [facility] [address] [place] [address] documented in this encounter Visit Diagnoses Not on filedocumented in this encounter Care Teams Data Center Manager Relationship Specialty Start Date End Date Unknown, Provider, PCP - General 04/13/13 09/02/21 Tim Kim MD [address] [place] [address] PCP - General 09/03/21 documented as of this encounter
--- OUTSIDE RECORDS SUMMARY | 2024-02-04 12:53 | XMS_ITS | Referral Summary ---
Author Organization [facility] Address [address] [place] [address] Care Team Providers Care Billiard Player Name Role Phone Tim Kim MD Primary Care Provider [phone] Encounters Date Type Department Care Team Description 11/04/2023 Lab Requisition [facility] Pathology & Laboratory Medicine - [address] [address] Outr Resulting Lab, Provider from Last 3 [...] EDT Office Visit [facility] Rheumatology [address] [place] [address] Alan Mann MBBS 111 [facility], [facility] 5 [place] [phone] Procedures Procedure Name Priority Date/Time Associated Diagnosis [...] IgG <2.3 <20.0 CU 2023 16:56 EDT [facility] Comment:Results were obtaine d with the [employer] Flash Ro52 chemiluminescent immunoassay. Values obtained with different manufacturers' assay methods must not be used interchangeably. Ro60 Antibody, IgG <7.0 <20.0 CU 2023 16:56 EDT [facility] Comment:Results were obtaine d with the [employer] Flash Ro60 chemiluminescent immunoassay. Values obtained with different manufacturers' assay methods must not be used interchangeably. SSB Antibody, IgG <3.3 <20.0 CU 024 16:56 EDT [facility] Comment:Results were obtaine d with the [employer] Flash SS-B chemiluminescent immunoassay. Values obtained with different manufacturers' assay methods must not be used interchangeably. Blood VENOUS BLOOD / Unknown 11/04/2023 11:40 EDT 11/04/2023 21:29 EDT Provider Outr Resulting Lab IMMUNOLOGY A ND SEROLOGY ORDERABLES Performing Organization Address City/[facility]/ZIP Co de Phone Number [facility] [address] [place] [address] * RHEUMATOID FACTOR (11/04/2023 11:40 EDT) Rheumatoid Factor 10.5 <12.0 IU/mL 11/05/2023 0:15 EDT [facility] Blood VENOUS BLOOD / Unknown 11/04/2023 11:40 EDT 11/04/2023 21:29 EDT Provider Outr Resulting Lab CHEMISTRY & BLOOD GAS ORDERABLES Performing Organization Address City/[facility]/ZIP Co de Phone Number [facility] [address] [place] [address] * ANTI NUCLEAR AB (SHIKHA), IFA (11/04/2023 11:40 EDT) SHIKHA Interpretation Negative Negative 2023 14:44 EDT [facility] Comment:No titer performed, SHIKHA Screen is negative. Blood VENOUS BLOOD / Unknown 11/04/2023 11:40 EDT 11/04/2023 21:29 EDT Narrative [facility] - 11/05/2023 14:44 EDT Results were obtained with the [email or web address] NOVA Lite HEp-2 SHIKHA Kit by indirect immunofluorescence. Provider Outr Resulting Lab IMMUNOLOGY A ND SEROLOGY ORDERABLES [facility] [address] [place] [address] * HEPATITIS C AB W REFLEX TO HCV RNA BY PCR (04/10/2021 8:58 EDT) Hep C Antibody Negative Negative 04/11/2021 10:07 EDT [facility] Blood VENOUS BLOOD / Unknown 04/10/2021 8:58 EDT 04/10/2021 16:25 EDT Provider Outr Resulting Lab CHEMISTRY & BLOOD GAS ORDERABLES [facility] [address] [place] [address] from Last 3 Months or Most Recently Relevant to Health Maintenance Care Teams Billiard Player Relationship Specialty Start Date End Date Tim Kim MD [address] [place] [address] PCP - General 09/03/21
--- OUTSIDE RECORDS SUMMARY | 2024-02-04 12:53 | XMS_ITS | Encounter Summary ---
Author Organization [facility] Address [address] [place] [address] Care Team Providers Care Tubing Machine Operator Name Role Phone Tmi Kim MD Primary Care Provider [phone] Encounter Details Date Type Department Care Team (Late st Contact Info) Description 11/03/2023 Lab Requisition [facility] Pathology & Laboratory Medicine - [address] [address] Outr Resulting Lab, Provider Social History Tobacco [...] Description 04/28/2024 14:[address] [facility] Rheumatology [address] [place] [address] Alan Mann MBBS [address] [place] [address], [facility] [address] [place] [phone] documented as of this encounter Procedures Procedure Name Priority Date/Time Associated Diagnosis Comments HSV (HERPES SIMPLEX VIRUS) MOLECULAR DETECTION, PCR Routine 11/02/2023 17:25 EDT documented in this encounter Results * HSV (HERPES SIMPLEX VIRUS) MOLECULAR DETECTION, PCR (11/02/2023 17:25 EDT) Herpes Simplex Virus Molecular Detection 1, PCR Negative Negative 11/04/2023 9:44 EDT [facility] Herpes Simplex Virus Molecular Detection 2, PCR Negative Negative 11/04/2023 9:44 EDT [facility] Swab ABSCESS MORPHOLOGY / Unknown 11/02/2023 17:25 EDT 11/03/2023 17:42 EDT Provider Outr Resulting Lab MICROBIOLOGY - GENERAL ORDERABLES Performing Organization Address City/State/[facility] Co de Phone Number [facility] [address] [place] [address] documented in this encounter Visit Diagnoses Not on filedocumented in this encounter Care Teams Tubing Machine Operator Relationship Specialty Start Date End Date Tim Kim MD [address] [place], [place] [phone] PCP - General 09/03/21 documented as of this encounter
--- OUTSIDE RECORDS SUMMARY | 2024-02-04 12:53 | XMS_ITS | Encounter Summary ---
Author Organization [facility] [place] [address] Care Team Providers Care Development Coach Name Role Phone Tim Kim MD Primary Care Provider [phone] Encounter Details Date Type Department Care Team (Late st Contact Info) Description 10/15/2020 External [place] [address] Samy Mckeon MD [facility] [place] [place] [address] Social History Tobacco Use Types Packs/Day Years [...] on filedocumented in this encounter Care Teams Development Coach Relationship Specialty Start Date End Date Tim Kim MD [address] [place] [address] PCP - General 05/28/10 documented as of this encounter
--- OUTSIDE RECORDS SUMMARY | 2024-02-04 12:53 | XMS_ITS | Clinical Summary ---
Author Organization [facility] Address [facility] [place] [address] Care Team Providers Care Last Dipper Name Role Phone Tim Kim MD Primary [...] - Influenza standard series) 03/06/2024 Care Teams Last Dipper Relationship Specialty Start Date End Date Tim Kim MD [address] [place] [address] PCP - General 05/28/10
--- OUTSIDE RECORDS SUMMARY | 2024-02-04 12:53 | XMS_ITS | Encounter Summary ---
Author Organization [facility] Address [address] [place] [address] Care Team Providers Care State Attorney Name Role Phone Tim Kim MD Primary Care Provider [phone] Encounter Details Date Type Department Care Team (Late st Contact Info) Description 11/04/2023 Lab Requisition [facility] Pathology & Laboratory Medicine - [address] [address] Outr Resulting Lab, Provider Social History Tobacco [...] 04/28/2024 14:45 EDT Office Visit [facility] Rheumatology [address] [place] [address] Alan Mann MBBS [address] [place] [address], [facility] 5 [place] [phone] documented as of this encounter Procedures Procedure Name Priority Date/Time Associated Diagnosis Comments SSA/SSB PANEL Routine 11/04/2023 11:40 EDT RHEUMATOID FACTOR Routine 11/04/2023 11: 40 EDT ANTI NUCLEAR AB (SHIKHA), IFA Routine 11/04/2023 11:40 EDT documented in this encounter Results * RHEUMATOID FACTOR (11/04/2023 11:40 EDT) Rheumatoid Factor 10.5 <12.0 IU/mL 11/05/2023 0:15 EDT [facility] Blood VENOUS BLOOD / Unknown 11/04/2023 11:40 EDT 11/04/2023 21:29 EDT Provider Outr Resulting Lab CHEMISTRY & BLOOD GAS ORDERABLES Performing Organization Address [facility] Co de Phone Number [facility] [address] [place] [address] * SSA/SSB PANEL (11/04/2023 11:40 EDT) Ro52 Anitbody, IgG <2.3 <20.0 CU 2023 16:56 EDT [facility] Comment:Results were obtaine d with the [employer] Flash Ro52 chemiluminescent immunoassay. Values obtained with different manufacturers' assay methods must not be used interchangeably. Ro60 Antibody, IgG <7.0 <20.0 CU 2023 16:56 EDT [facility] Comment:Results were obtaine d with the [employer] Flash Ro60 chemiluminescent immunoassay. Values obtained with different manufacturers' assay methods must not be used interchangeably. SSB Antibody, IgG <3.3 <20.0 CU 024 16:56 EDT [facility] Comment:Results were obtaine d with the [employer] Flash SS-B chemiluminescent immunoassay. Values obtained with different manufacturers' assay methods must not be used interchangeably. Blood VENOUS BLOOD / Unknown 11/04/2023 11:40 EDT 11/04/2023 21:29 EDT Provider Outr Resulting Lab IMMUNOLOGY A ND SEROLOGY ORDERABLES Performing Organization Address [facility]/ZIP Co de Phone Number [facility] [address] [place], [place] [id number] * ANTI NUCLEAR AB (SHIKHA), IFA (11/04/2023 11:40 EDT) SHIKHA Interpretation Negative Negative 2023 14:44 EDT [facility] Comment:No titer performed, SHIKHA Screen is negative. Blood VENOUS BLOOD / Unknown 11/04/2023 11:40 EDT 11/04/2023 21:29 EDT Narrative [facility] - 11/05/2023 14:44 EDT Results were obtained with the [employer] NOVA Lite HEp-2 SHIKHA Kit by indirect immunofluorescence. Provider Outr Resulting Lab IMMUNOLOGY A ND SEROLOGY ORDERABLES [facility] [address] [place] [address] documented in this encounter Visit Diagnoses Not on filedocumented in this encounter Care Teams State Attorney Relationship Specialty Start Date End Date Tim Kim MD [address] [place], [place] [phone] PCP - General 09/03/21 documented as of this encounter
--- OUTSIDE RECORDS SUMMARY | 2024-02-04 12:53 | XMS_ITS | Encounter Summary ---
Author Organization Health system Address [address] [place] [address] Care Team Providers Care Identification Printing Machine Setter Name Role Phone Unknown, Provider Primary Care Provider [phone] Tim Kim MD Primary Care Provider [phone] Encounter Details Date Type Department Care Team (Late st Contact Info) Description 04/10/2021 Lab Requisition [facility] Pathology & Laboratory Medicine - [address] [address] Outr Resulting Lab, Provider Social History Tobacco [...] [facility] Rheumatology [address] [place] [address] Alan Mann MBBS 111 [facility], [facility] 5 [place] [phone] documented as of this encounter Procedures Procedure Name Priority Date/Time Associated Diagnosis Comments HEPATITIS C AB W REFLEX TO HCV RNA BY PCR Routine 04/10/2021 8:58 EDT HEPATITIS B SURFACE ANTIGEN Routine 04/10/2021 8:58 EDT documented in this encounter Results * HEPATITIS B SURFACE ANTIGEN (04/10/2021 8:58 EDT) Hep B Surface Ag Negative Negative 04/11/2021 9:26 EDT [facility] Blood VENOUS BLOOD / Unknown 04/10/2021 8:58 EDT 04/10/2021 16:25 EDT Provider Outr Resulting Lab CHEMISTRY & BLOOD GAS ORDERABLES Performing Organization Address City/[facility]/ZIP Co de Phone Number [facility] [address] [place] [address] * HEPATITIS C AB W REFLEX TO HCV RNA BY PCR (04/10/2021 8:58 EDT) Hep C Antibody Negative Negative 04/11/2021 10:07 EDT [facility] Blood VENOUS BLOOD / Unknown 04/10/2021 8:58 EDT 04/10/2021 16:25 EDT Provider Outr Resulting Lab CHEMISTRY & BLOOD GAS ORDERABLES Performing Organization Address [facility] de Phone Number [facility] [address] [place] [address] documented in this encounter Visit Diagnoses Not on filedocumented in this encounter Care Teams Identification Printing Machine Setter Relationship Specialty Start Date End Date Unknown, MD Lianna PCP - General 04/13/13 09/02/21 Tim Kim MD [address] [place] [address] PCP - General 09/03/21 documented as of this encounter
--- OUTSIDE RECORDS SUMMARY | 2024-02-04 12:53 | XMS_ITS | Encounter Summary ---
Author Organization [facility] Address [address] [place] [address] Care Team Providers Care Last Model Department Supervisor Name Role Phone Tim Kim MD Primary Care Provider [phone] Encounter Details Date Type Department Care Team (Late st Contact Info) Description 10/21/2021 Lab Requisition [facility] Pathology & Laboratory Medicine - [address] [address] Jerica Hernandez [address] [place] [address] [place] [address] Encounter for other general examination [...] 14:45 EDT Office Visit [facility] Rheumatology [address] [place] [address] Alan Mann MBBS 111 [facility], [facility] 5 [place] [phone] documented as of this encounter Procedures Procedure [...] explore management options, if applicable. 10/30/2021 16:27 [facility] Final Diagnosis A. [...] - No significant histopathologic changes. 10/30/2021 16:27 [facility] Diagnosis Comment Diagnostic [...] smooth muscle. Sandoval MATHIAS, Edith Dasilva (2020). [place] of Placental Pathology. AFIP Atlases of Tumor and non-Tumor Pathology (Series 5). [place] Registry of Pathology; [place], [place]. Adapted from Nestor RW, Shubham O, Carolina D, Frances F, Magalie V, Corey Arenas; Society for Pediatric Pathology, Section, Amniotic Fluid Infection Nosology Committee. 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 Pediatr Dev Pathol. 2002-Apr;6(5):435-4 8. 10/30/2021 16:27 [facility] Attestation By the signature below, the attending physician certifies that they have 1) personally conducted a gross and/or microscopic examination of the described specimen(s), and/or personally interpreted the results of laboratory testing of the described specimen(s), and 2) personally rendered or confirmed the above diagnosis. 10/30/2021 16:27 [facility] at 1627 Clinical History Active labor, 38.6 weeks 10/30/2021 16:27 [facility] Gross Description A. [...] and has a partly gelatinous cut surface. Police And Fire Dispatcher sections are submitted as follows: BLOCK RANGEL [...] LIZ ASHLEY(ASCP) 10/22/2021 14:27 10/30/2021 16:27 EDT [facility] Performing Lab [facility] 16:27 EDT [facility] Scanned Images 10/30/2021 16:27 EDT [facility] Tissue PLACENTAL STRUCTURE / Unknown 10/20/2021 21:46 EDT 10/21/2021 17:21 EDT Jerica Hernandez PATHOLOGY ORDERABLES [facility] [address] [place] [address] documented in this encounter Visit Diagnoses Diagnosis Encounter for other general examination documented in this encounter Care Teams Last Model Department Supervisor Relationship Specialty Start Date End Date Tim Kim MD [address] [place] [address] PCP - General 09/03/21 documented as of this encounter
--- OUTSIDE RECORDS SUMMARY | 2024-02-04 12:53 | XMS_ITS | Encounter Summary ---
Author Organization [facility] Address [address] [place] [address] Care Team Providers Care Business Analysis Specialist Name Role Phone Tim Kim MD Primary Care Provider [phone] Encounter Details Date Type Department Care Team (Late st Contact Info) Description 01/09/2022 Lab Requisition [facility] Pathology & Laboratory Medicine [address] [address] Griselda Alonso MD [address] [place] [address] [place] [address] Encounter for sterilization Social History [...] Info) Description 04/28/2024 14:45 EDT Office Visit [facility] Rheumatology [address] [place] [address] Alan Mann MBBS 111 [facility], [facility] 5 [place] [address] documented as of this encounter [...] explore management options, if applicable. 01/13/2022 14:36 [facility] Final Diagnosis A. FALLOPIAN TUBE, LEFT, PARTIAL SALPINGECTOMY: - Segment of fallopian tube with no specific pathologic features. - Full cross-sections identified. B. FALLOPIAN TUBE, RIGHT, PARTIAL SALPINGECTOMY: - Segment of fallopian tube with no specific pathologic features. - Full cross-sections identified. 01/13/2022 14:36 [facility] Attestation There was significant resident/fellow involvement in the diagnostic evaluation of this case. By the signature below, the attending physician certifies that they have personally conducted a gross and/or microscopic examination of the described specimens and rendered or confirmed the above diagnosis. 01/13/2022 14:36 [facility] at 1436 Clinical History Desires sterilization 01/13/2022 14:36 [facility] Gross Description A. Received in formalin labelled with proper patient identification (initials N, S) and left fallopian tube are 2 segments of ott-case, tubular tissue (1.5 cm in length by 0.3 cm in diameter and 5.2 cm in length by 0.4 cm in diameter). The serosal surfaces are smooth and ott-case. No fimbria are present. Three safety representative sections are submitted in A1. B. Received in formalin labelled with proper patient identification (initials N, S) and right fallopian tube is a 5.7 cm in length by 0.5 cm in diameter fimbriated fallopian tube. The serosa is smooth and purple-case. Sectioning reveals a patent, unremarkable lumen. Senior Paralegal sections, to include the bisected fimbria, are submitted in B1-B2. LIZ DOW(ASCP) 01/09/2022 10:02 01/13/2022 14:36 [facility] Resident/Tony w: Florina Lewis DO 01/13/2022 14:36 [facility] Performing Lab [facility] 01/13/2022 14:36 EDT [facility] Scanned Images 01/13/2022 14:36 EDT [facility] Tissue ENTIRE FALLOPIAN TUBE / Unknown 01/08/2022 11:40 EDT 01/09/2022 6:40 EDT Tissue specimen (specimen) FALLOPIAN TUBE STRUCTURE / Unknown 01/08/2022 11:40 EDT 01/09/2022 6:40 EDT Griselda Alonso MD PATHOLOGY ORDERABLES [facility] [address] [place] [address] documented in this encounter Visit Diagnoses Diagnosis Encounter for sterilization Sterilization documented in this encounter Care Teams Business Analysis Specialist Relationship Specialty Start Date End Date Tim Kim MD [address] [place] [address] PCP - General 09/03/21 documented as of this encounter
--- OUTSIDE RECORDS SUMMARY | 2024-02-04 12:54 | XMS_ITS | Encounter Summary ---
Author Organization [facility] Address [address] [place] [address] Care Team Providers Care Instantizer Operator Name Role Phone Unknown, Provider Primary Care Provider [phone] Tim Kim MD Primary Care Provider Encounter Details Date Type Department Care Team (Late st Contact Info) Description 04/05/2021 Lab Requisition [facility] Pathology & Laboratory Medicine - [address] [address] Outr Resulting Lab, Provider Social History Tobacco [...] Info) Description 04/28/2024 14:45 EDT Office Visit [facility] Rheumatology [address] [place] [address] Alan Mann MBBS 111 [facility], [facility] 5 [place] [phone] documented as of this encounter Procedures Procedure Name Priority Date/Time Associated Diagnosis Comments CHLAMYDIA/N. GONORRHOEAE AMPLIFIED NUCLEIC ACID Routine 04/04/2021 14:15 EDT documented in this encounter Results * CHLAMYDIA/N. GONORRHOEAE AMPLIFIED RNA (04/04/2021 14:15 EDT) Neisseria gonorrhoeae Result Negative Negative 04/08/2021 16:07 EDT [facility] Chlamydia trachomatis Result Negative Negative 04/08/2021 16:07 EDT [facility] Swab ENTIRE WALL OF CERVIX / Unknown 04/04/2021 14:15 EDT 04/05/2021 18:45 EDT Provider Outr Resulting Lab MICROBIOLOGY - GENERAL ORDERABLES Performing Organization Address City/State/[facility] Co de Phone Number [facility] [address] [place] [address] documented in this encounter Visit Diagnoses Not on filedocumented in this encounter Care Teams Instantizer Operator Relationship Specialty Start Date End Date Unknown, Provider, PCP - General 04/13/13 09/02/21 Tim Kim MD [address] [place] [address] PCP - General 09/03/21 documented as of this encounter
--- OUTSIDE RECORDS SUMMARY | 2024-02-04 12:54 | XMS_ITS | Encounter Summary ---
Author Organization [facility] Address [address] [place] [address] Care Team Providers Care Police Investigator Name Role Phone Unknown, Provider Primary Care Provider [phone] Tim Kim MD Primary Care Provider [phone] Encounter Details Date Type Department Care Team (Late st Contact Info) Description 02/07/2020 Lab Requisition [facility] Pathology & Laboratory Medicine - [address] [address] Outr Resulting Lab, Provider Social History Tobacco [...] Info) Description 04/28/2024 14:45 EDT Office Visit [facility] Rheumatology [address] [place] [address] Alan Mann MBBS 111 [facility], [facility] 5 [place] [phone] documented as of this encounter Procedures Procedure [...] MICROBIOLOGY - GENERAL ORDERABLES Performing Organization Address City/[place] [facility]/ZIP Co de Phone Number [facility] [address] [place] [address] * COVID-19 TESTING (02/07/2020 17:18 EDT) COVID-19 rt-PCR Result Negative Negative 02/08/2020 1:12 EDT [facility] Comment: This test [...] history, and epidemiological information. Performed on the Pelikonher Fusion instrument Performing Lab [place] [facility] 02/08/2020 1:12 EDT [facility] Swab 02/07/2020 17:1 8 EDT 02/07/2020 21:23 EDT Provider Outr Resulting Lab MICROBIOLOGY - GENERAL ORDERABLES Performing Organization Address City/[facility]/ZIP Co de Phone Number [facility] [address] [place] [address] documented in this encounter Visit Diagnoses Not on filedocumented in this encounter Care Teams Police Investigator Relationship Specialty Start Date End Date Unknown, Provider, PCP - General 04/13/13 09/02/21 Tim Kim MD [address] [place] [address] PCP - General 09/03/21 documented as of this encounter
--- OUTSIDE RECORDS SUMMARY | 2024-02-04 12:54 | XMS_ITS | Encounter Summary ---
Author Organization [facility] Address [address] [place] [address] Care Team Providers Care Slitting Machine Feeder Name Role Phone Unknown, Provider Primary Care Provider [phone] Tim Kim MD Primary Care Provider [phone] Encounter Details Date Type Department Care Team (Late st Contact Info) Description 07/27/2020 Lab Requisition [facility] Pathology & Laboratory Medicine - [address] [place] [address] [address] Outr Resulting Lab, Provider Social History Tobacco [...] Info) Description 04/28/2024 14:45 EDT Office Visit [facility] Rheumatology [address] [place] [address] Alan Mann MBBS 111 [facility], [facility] 5 [place] [phone] documented as of this encounter Procedures Procedure Name Priority Date/Time Associated Diagnosis Comments CHLAMYDIA/N. GONORRHOEAE AMPLIFIED NUCLEIC ACID Routine 07/27/2020 11:25 EST documented in this encounter Results * CHLAMYDIA/N. GONORRHOEAE AMPLIFIED RNA (07/27/2020 11:25 EST) Neisseria gonorrhoeae Result Negative Negative 07/30/2020 14:21 EST [facility] Chlamydia trachomatis Result Negative Negative 07/30/2020 14:21 EST [facility] Swab ENTIRE WALL OF CERVIX / Unknown 07/27/2020 11:25 EST 07/27/2020 22:04 EST Provider Outr Resulting Lab MICROBIOLOGY - GENERAL ORDERABLES Performing Organization Address City/State/[facility] Co de Phone Number [facility] [address] [place] [address] documented in this encounter Visit Diagnoses Not on filedocumented in this encounter Care Teams Slitting Machine Feeder Relationship Specialty Start Date End Date Unknown, Provider, PCP - General 04/13/13 09/02/21 Tim Kim MD [address] [place] [address] PCP - General 09/03/21 documented as of this encounter
--- OUTSIDE RECORDS SUMMARY | 2024-02-04 12:54 | XMS_ITS | Encounter Summary ---
Author Organization [facility] Address [address] [place] [address] Care Team Providers Care Trouble Tracer Name Role Phone Unknown, Provider Primary Care Provider [phone] Tim Kim MD Primary Care Provider Encounter Details Date Type Department Care Team (Late st Contact Info) Description 06/15/2020 Lab Requisition [facility] Pathology & Laboratory Medicine - [address] [address] Outr Resulting Lab, Provider Social History Tobacco [...] Info) Description 04/28/2024 14:45 EDT Office Visit [facility] Rheumatology [address] [place] [address] Alan Mann MBBS 111 [facility], [facility] 5 [place] [phone] documented as of this encounter Procedures Procedure Name Priority Date/Time Associated Diagnosis Comments DO NOT ORDER STANDALONE - BROAD COVID TEST Today 06/14/2020 11:30 EST COVID-19 TESTING Routine 06/14/2020 11:3 0 EST documented in this encounter Results * DO NOT ORDER STANDALONE - BROAD COVID TEST (06/14/2020 11:30 EST) [facility] COVID-19 rt-PCR Result NEGATIVE Negative 06/17/2020 14:27 EST [facility] Comment: 2019-novel Coronavirus (2019-nCoV) not [...] in accordance with CLIA regulations, College of [employer] (CAP) guidelines (Sep 22, 2019), and FDA guidance (Sep 03, 2019). This test is only for use under the Food and Drug Administration's Emergency Use Authorization. Swab ENTIRE NASOPHARYNX / Unknown 06/14/2020 11:30 EST 06/15/2020 15:53 EST Provider Outr Resulting Lab MICROBIOLOGY - GENERAL ORDERABLES [facility] [place], [place] * COVID-19 TESTING (06/14/2020 11:30 EST) COVID-19 rt-PCR Result NEGATIVE Negative 06/17/2020 16:45 EST [facility] Comment: 2019-novel Coronavirus (2019-nCoV) not [...] in accordance with CLIA regulations, College of [employer] (CAP) guidelines (Sep 22, 2019), and FDA guidance (Sep 03, 2019). This test is only for use under the Food and Drug Administration's Emergency Use Authorization. Performing Lab [facility] 06/17/2020 16:45 EST [facility] Swab 06/14/2020 11:3 0 EST 06/15/2020 15:53 EST Provider Outr Resulting Lab MICROBIOLOGY - GENERAL ORDERABLES [facility] [address] [place] [address] [facility] [place] documented in this encounter Visit Diagnoses Not on filedocumented in this encounter Care Teams Trouble Tracer Relationship Specialty Start Date End Date Unknown, Provider, PCP - General 04/13/13 09/02/21 Tim Kim MD [address] [place] [address] PCP - General 09/03/21 documented as of this encounter
--- OUTSIDE RECORDS SUMMARY | 2024-02-04 12:54 | XMS_ITS | Encounter Summary ---
Author Organization [facility] Address [address] [place] [address] Care Team Providers Care Surgery Attendant Name Role Phone Unknown, Provider Primary Care Provider [phone] Encounter Details Date Type Department Care Team (Late st Contact Info) Description 04/13/2013 Results Only [facility] - [facility] ([facility] [address] [place] [address] Unknown, Provider, Social History Tobacco Use Types Packs/Day Years Used Date Smoking Tobacco: Never Assessed Sex and Gender Information Value Date Recorded Sex Assigned at Not on file Gender Identity Not on file Sexual Orientation Not on file documented as of this encounter Plan of Treatment Upcoming Encounters Date Type Department Care Team (Late st Contact Info) Description 04/28/2024 14:45 EDT Office Visit [facility] Rheumatology [address] [place] [address] Alan Mann MBBS 111 [facility], [facility] 5 [place] [phone] documented as of this encounter Procedures Procedure Name Priority Date/Time Associated Diagnosis Comments SCREEN TEST Routine 04/13/2013 16: 03 EDT documented in this encounter Results * SCREEN TEST (04/13/2013 16:03 EDT) Screen Test NEGATIVE [facility] 04/13/2013 16:0 3 EDT Provider Unknown BLOOD BANK TESTS [facility] [address] [place] [address] documented in this encounter Visit Diagnoses Not on filedocumented in this encounter Care Teams Surgery Attendant Relationship Specialty Start Date End Date Unknown, Provider, PCP - General 04/13/13 09/02/21 documented as of this encounter
--- OUTSIDE RECORDS SUMMARY | 2024-02-04 12:54 | XMS_ITS | Encounter Summary ---
Author Organization [facility] Address [address] [place] [address] Care Team Providers Care Chief Accounting Officer Name Role Phone Unknown, Provider Primary Care Provider [phone] Encounter Details Date Type Department Care Team (Late st Contact Info) Description 12/25/2016 Results Only [facility]- [facility] [phone] Damien Hilton, [facility]- [address] [place] [address] Social History Tobacco Use Types Packs/Day Years Used Date Smoking Tobacco: Never Assessed Sex and Gender Information Value Date Recorded Sex Assigned at Not on file Gender Identity Not on file Sexual Orientation Not on file documented as of this encounter Plan of Treatment Upcoming Encounters Date Type Department Care Team (Late st Contact Info) Description 04/28/2024 14:45 EDT Office Visit [facility] Rheumatology [address] [place] [address] Alan Mann MBBS 111 [facility], [facility] 5 [place] [address] documented as of this encounter [...] ? RADHA SCHMIDT ? Accession #: ? [id number] : ? 1990 (Age: 26) ??F ?Collect Date: ? 12/25/2016 Location: ? [facility] ? Receive Date: ? 12/29/2016 Provider: ?DAMIEN APODACA ORNAMENTAL BRONZE WORKER-BC Copy to: ? Specimen/Source: ?Pap Test, Cervix, ThinPrep Imaging System with manual evaluation Last Menstrual Period: ? SPECIMEN ADEQUACY ? Satisfactory for Evaluation - transformation zone component absent GENERAL CATEGORIZATION ? Negative for Intraepithelial Lesion or Malignancy ? Document reviewed and electronically signed by: ? Criss Crooks, CT(ASCP) ? Report Date: ??01/08/2017 08:56 End of Report [facility] 12/25/2016 12/29/2016 Damien Hilton ORNAMENTAL BRONZE WORKER-BC PATHOLOGY ORDERA BLES [facility] [address] [place] [address] documented in this encounter Visit Diagnoses Not on filedocumented in this encounter Care Teams Chief Accounting Officer Relationship Specialty Start Date End Date Unknown, Provider, PCP - General 04/13/13 09/02/21 documented as of this encounter
--- OUTSIDE RECORDS SUMMARY | 2024-02-04 12:54 | XMS_ITS | Encounter Summary ---
Author Organization [facility] Address [address] [place] [address] Care Team Providers Care Bass Guitar Teacher Name Role Phone Unknown, Provider Primary Care Provider Tim Kim MD Primary Care Provider [phone] Encounter Details Date Type Department Care Team (Late st Contact Info) Description 12/17/2020 Lab Requisition [facility] Pathology & Laboratory Medicine - [address] [address] Pam Means MD 111 [facility] 4 [place] [phone] Encounter for other general examination Social History [...] Office Visit [facility] Rheumatology [address] [place] [address] Alan Mann MBBS 111 [facility] 5 [place] [address] documented as of this encounter [...] [facility] Performing Lab [facility] 12/25/2020 10:17 T [facility] Scanned Images 12/25/2020 10:17 EDT [facility] Papanicolaou smear specimen (specimen) CERVIX UTERI STRUCTURE / Unknown 12/14/2020 9:10 EDT 12/17/2020 15:30 EDT Pam Means MD PATHOLOGY ORDERAB LES [facility] [address] [place] [address] documented in this encounter Visit Diagnoses Diagnosis Encounter for other general examination documented in this encounter Care Teams Bass Guitar Teacher Relationship Specialty Start Date End Date Unknown, Provider, PCP - General 04/13/13 09/02/21 Tim Kim MD [address] [place] [address] PCP - General 09/03/21 documented as of this encounter
--- OUTSIDE RECORDS SUMMARY | 2024-02-04 12:54 | XMS_ITS | Encounter Summary ---
Author Organization [facility] Address [address] [place] [address] Care Team Providers Care Call Center Nurse Name Role Phone Unknown, Provider Primary Care Provider [phone] Tim Kim MD Primary Care Provider Encounter Details Date Type Department Care Team (Late st Contact Info) Description 07/20/2020 Lab Requisition [facility] Pathology & Laboratory Medicine - [address] [address] Outr Resulting Lab, Provider Social History Tobacco [...] 14:45 EDT Office Visit [facility] Rheumatology [address] [place] [address] Alan Mann MBBS 111 [facility], [facility] 5 [place] [address] documented as of this encounter Procedures Procedure Name Priority Date/Time Associated Diagnosis Comments SPEP, INCLUDES QUANTITATION OF MONOCLONAL SPIKE Routine 07/20/2020 10:45 EST documented in this encounter Results * SPEP, INCLUDES QUANTITATION OF MONOCLONAL SPIKE (07/20/2020 10:45 EST) Total Protein 7.3 6.3 - 8.2 g/dL 07/23/2020 12:38 [facility] Albumin % 61.2 55.8 - 66.1 % 07/23/2020 12:38 [facility] Alpha-1 % 4.3 2.9 - 4.9 % 07/23/2020 12:38 [facility] Alpha-2 % 10.1 7.1 - 11.8 % 07/23/2020 12:38 [facility] Beta % 9.9 8.4 - 13.1 % 07/23/2020 12:38 [facility] Gamma % 14.5 11.1 - 18.8 % 07/23/2020 12:38 [facility] SPEP Comment No apparent monoclonal protein seen on serum electrophoresis 07/23/2020 12:38 [facility] Comment:See scanned/suppleme ntary report. Blood VENOUS BLOOD / Unknown 07/20/2020 10:45 EST 07/20/2020 21:02 EST Provider Outr Resulting Lab CHEMISTRY & BLOOD GAS ORDERABLES [facility] [address] [place] [address] documented in this encounter Visit Diagnoses Not on filedocumented in this encounter Care Teams Call Center Nurse Relationship Specialty Start Date End Date Unknown, MD Lianna PCP - General 04/13/13 09/02/21 Tim Kim MD [address] [place] [address] PCP - General 09/03/21 documented as of this encounter
--- NOTE | 2024-02-04 13:09 | W.ED.GENAD ---
Discharge Plan Disposition Patient Disposition: Home Condition: Stable Discharge Details Clinical Impression: Left eye pain, Syncope Primary Care Provider: Avis Koch ED Provider: Damon Garland Home Meds and New Rx's Prescriptions: Continued lamotrigine 100 mg tablet 150 mg PO DAILY Aimovig Autoinjector 140 mg/mL auto-injector 140 mg subcut QMONTH Qty: 1 11RF lorazepam 0.5 mg tablet 0.5 mg PO ONCE PRN (Reason: anxiety/claustrophobia) Qty: 2 0RF Rx Instructions: Take one tablet 30min prior to MRI. Ok to take second at time of MRI if still anxious. Do not drive after taking. naratriptan 2.5 mg tablet See Rx Instructions PO .COMPLEX Qty: 12 3RF Rx Instructions: take 1 tab at onset of headache; if no relief may repeat 1 tab after at least 4 hrs; max = 2 tabs/24 hrs PO Viibryd 10 mg (7)- 20 mg (23) tablets,dose pack 40 dose pk PO DIRECTED Patient Comments: TAKE ONE BY MOUTH EVERY DAY WITH FOOD Discharge Instructions Instructions: Optic neuritis, Fainting, Adult ED Additional Instructions: Dr Figueroa of [facility] Ophthalmology will see at [facility] at 11am tomorrow at [facility]. You likely had a vasovagal response today as cause of your syncope and there was no concerns on your EKG or multiple troponins for cardiac cause of syncope, your eye pain may be related to past severe migraines but I have arranged for ophthalmology follow-up tomorrow at [facility] for you. Referrals: [facility] [Outside] Avis Koch [Primary Care Provider] - HPI General Date/Time Provider Initiated Documentation: 02/04/24 13:02. HPI Narrative: 33 year-old female presents to ED today by POV/ambulating with a chief complaint of dizziness/nausea- being treated for optic neuritis with blurred vision of L eye- had syncope x2 today- once just prior to entering infusion center, and once after- she equates this to pain, and feels like she is getting hot flashes or sweating episodes. Patient has been seen here in this ED very recently for this with negative CTA of Brain & Neck, negative MRI of Brain and Orbits, and is being managed by [facility] for presumed optic neuritis. Quality described as severe L eye pain, blurred vision that has not gotten acutely worse today, nausea from pain and dizziness with sweating, no radiation to chest pain, shortness of breath, fever, loss of vision, floaters or scotoma, vomiting, abdominal pain. Severity is described as severe. Palliating factors include steroid infusions for optic neuritis. Provoking factors include nothing specific. Patient not anticoagulated. Related Data Home Medications ?Medication ?Instructions ?Recorded ?Confirmed lamotrigine 100 mg tablet 150 mg PO DAILY 03/25/23 02/04/24 vilazodone 10 mg (7)-20 mg (23) 40 dose pk PO DIRECTED 03/25/23 02/04/24 tablets in a titration pack (Viibryd) erenumab-aooe 140 mg/mL 140 mg subcut QMONTH #1 mL 09/15/23 02/04/24 subcutaneous auto-injector (Aimovig Autoinjector) lorazepam 0.5 mg tablet 0.5 mg PO ONCE PRN 09/22/23 02/04/24 anxiety/claustrophobia #2 tabs naratriptan 2.5 mg tablet See Rx Instructions PO .COMPLEX 02/01/24 02/04/24 #12 tabs Previous Rx's ?Medication ?Instructions ?Recorded erenumab-aooe 140 mg/mL 140 mg subcut QMONTH #1 mL 09/15/23 subcutaneous auto-injector (Aimovig Autoinjector) lorazepam 0.5 mg tablet 0.5 mg PO ONCE PRN 09/22/23 anxiety/claustrophobia #2 tabs naratriptan 2.5 mg tablet See Rx Instructions PO .COMPLEX 02/01/24 #12 tabs Allergies Allergy/AdvReac Type Severity Reaction Status Date / Time ibuprofen Allergy Severe Skin Rash Verified 02/04/24 13:01 paroxetine (From Paxil) Allergy Severe throat Verified 02/04/24 13:01 swells penicillin G Allergy Severe Anaphylaxis Verified 02/04/24 13:01 codeine Allergy Intermediate HIVES Verified 02/04/24 13:01 General Stated Complaint: Dizzy/Sync FRITZ: 3 Review of Systems All systems reviewed & are unremarkable except as noted in HPI and below Exam Narrative Exam Narrative: GENERAL APPEARANCE: Well-nourished, non-toxic, awake and alert, atraumatic, no acute distress. SKIN: Warm, pink, dry, intact, without rashes/lesions/ulcerations. HEAD: Normocephalic, atraumatic, normal hair distribution for gender/age. EYES: Normal conjunctiva, no exudates on lids/lashes, visual acuity grossly intact, visual escalante intact, pupils PERRLA, slight discomfort with EOM movement, no ophthalmoplegia ENT: Nares patent, no circumoral cyanosis, no facial swelling NECK: Supple, trachea midline, painless cervical ROM. LUNGS/CHEST: Lungs CTA bilaterally, non-labored respirations, normal A/P diameter, symmetrical expansion, no chest wall deformity HEART (CV/PV): Regular rate and rhythm without murmur, no peripheral edema, no JVD. ABDOMEN: Soft, non-distended, no guarding. MSK: Normal ROM, no swelling/deformity to bilateral UEs or LEs, moving all extremities without weakness, no cyanosis, spine midline without tenderness, normal curvature. NEURO: Mental Status AAOx4 - alert to person, place, time, events No facial droop, no forehead involvement. Motor: No focal weakness - strength 5/5 in bilateral UEs and LEs, proximal and distal, symmetric. Sensory: sensation intact to light touch globally. Gait normal: patient ambulated without ataxia into ED room. PSYCH: euthymic, cooperative, pleasant, appropriate speech Course Vital Signs Vital signs: Vital Signs Temperature 36.9 C 02/04/24 12:51 Pulse 71 02/04/24 12:51 Respiratory Rate 18 02/04/24 12:51 Blood Pressure 117/87 02/04/24 12:51 Pulse Oximetry 100 02/04/24 12:51 Temperature 36.9 C 02/04/24 12:51 Temperature Source Temporal Artery Scan 02/04/24 12:51 Pulse 71 02/04/24 12:51 Respiratory Rate 18 02/04/24 12:51 Respiratory Effort Normal 02/04/24 12:55 Blood Pressure 117/87 02/04/24 12:51 Pulse Oximetry 100 02/04/24 12:51 Oxygen Delivery Method Room Air 02/04/24 12:51 Oxygen Flow Rate 0 02/04/24 12:51 Pain Level 9 08/01/24 12:51 Medical Decision Making This dictation utilizes [id number] dictation software and may contain unedited grammatical errors. 33 year-old female presents to ED today by POV/ambulating with a chief complaint of dizziness/nausea- being treated for optic neuritis with blurred vision of L eye- had syncope x2 today- once just prior to entering infusion center, and once after- she equates this to pain, and feels like she is getting hot flashes or sweating episodes. Patient has been seen here in this ED very recently for this with negative CTA of Brain & Neck, negative MRI of Brain and Orbits, and is being managed by [facility] for presumed optic neuritis. Quality described as severe L eye pain, blurred vision that has not gotten acutely worse today, nausea from pain and dizziness with sweating, no radiation to chest pain, shortness of breath, fever, loss of vision, floaters or scotoma, vomiting, abdominal pain. Severity is described as severe. Palliating factors include steroid infusions for optic neuritis. Provoking factors include nothing specific. Patients' medical history: Fibromyalgia, history of anorexia nervosa, suicidal ideation, opioid dependence, medical of a pathic peripheral neuropathy, migraine headache with aura and status migrainosus. Family and social history: noncontributory. Pertinent exam findings / vital signs include neuro intact, vision not grossly changed from prior, pupils PERRLA, no severe pain with EOM movement, no focal deficits. Differential / pathologies of concern include unlikely CRAO/CRVO, patient has been evaluated panoptically here and at [facility], MRI negative for any sign of demyelinating pathology of optic nerve. Diagnostic studies of: -CBC, CMP, magnesium, lactate, TSH, serial troponins, EKG. -labs benign as below -repeat troponin pending -EKG shows no STEMI or arrhythmia or ectopy Interventions of: -IVF 1L NS, 1.25mg IV droperidol. ED Course/Assessment/Plan: 33-year-old female presents with severe left eye pain and persistent blurred vision, seen here twice this week as well as [facility] eye care-negative MRI brain and orbits, negative CTA of the head and neck, normal panoptic exam here as well as that should be eye care, being treated empirically for optic neuritis with steroid infusions, eyedrops for scleritis without physical exam findings to suggest overt scleritis. Patient endorses scotoma in the past with migraine with aura but denies scotoma currently, denies any curtain drawing visual sensation, did improve with some droperidol and has history of fibromyalgia. Patient may need MRA or MRV of the orbits, versus neuro-ophtho or ophthalmological consult. Consult is pending with [facility] ophthalmology, repeat troponin is pending the patient's multiple syncopal episodes today likely tied to pain. Patient signed out to oncoming provider Rafaela Baker NP at shift change. Arranged [facility] follow-up for the patient tomorrow at 11am, repeat troponin pending. Findings not consistent with ACS, no chest pain. Disposition of Left Eye Pain, Syncope. Patient verbalized understanding of the plan and return to ED criteria and engaged in shared decision making. Medical Records Medical records reviewed: Yes I reviewed the patient's medical records. Lab Data Lab results reviewed: Yes I reviewed the patient's lab results. Labs: Laboratory Tests Range/Units 02/04/24 13:40 WBC (4.4-10.8) 10^3/uL 8.67 RBC (3.93-5.22) 10^6/uL 4.92 Hgb (11.2-15.7) g/dL 15.7 Hct (36.0-46.0) % 44.7 MCV (80-95) fL 91 MCH (27.0-33.0) pg 31.9 MCHC (32.0-36.0) % 35.1 RDW (11.7-14.6) % 11.8 Plt Count (130-400) 10^3/uL 212 MPV (8.0-11.0) fL 9.8 Immature Gran % % 0.5 Neutrophils % % 85.9 Lymphocytes % % 11.1 Monocytes % % 2.2 Eosinophils % % 0.1 Basophils % % 0.2 Nucleated RBC % (0.0-0.3) % 0.0 Absolute Neutrophils (1.2-6.7) 10^3/uL 7.45 H Absolute Lymphocytes (1.2-3.4) 10^3/uL 0.96 L Absolute Monocytes (0.1-0.8) 10^3/uL 0.19 Absolute Eosinophils (0.0-0.7) 10^3/uL 0.01 Absolute Basophils (0.0-0.2) 10^3/uL 0.02 VBG Lactate (0.6-1.4) mmol/L 1.2 Sodium (136-145) mmol/L 139 Potassium (3.5-5.1) mmol/L 5.1 Chloride (98-107) mmol/L 102 Carbon Dioxide (21.0-32.0) mmol/L 29.2 Anion Gap (3-11) mmol/L 7.8 BUN (7-18) mg/dL 20 H Creatinine (0.55-1.02) mg/dL 1.0 Est GFR (CKD-EPI 2020) (mL/min/1.73m2) 77.24 Glucose (74-106) mg/dL 96 Calcium (8.5-10.1) mg/dL 9.3 Magnesium (1.8-2.4) mg/dL 1.8 Total Bilirubin (0.2-1.0) mg/dL 0.95 AST (15-37) U/L 19 ALT (14-59) U/L 20 Alkaline Phosphatase (46-116) U/L 70 Troponin I (< or =60) ng/L < 50 Total Protein (6.4-8.2) g/dL 8.3 H Albumin (3.4-5.0) g/dL 4.7 TSH (0.36-3.74) uIU/mL 1.96 Quality:SDOH Health Related Social Needs: No Data to Display PFSH All Active Problems (Updated 02/04/24 @ 16:03 by LIZ Smyth) Syncope (Chronic) Left eye pain (Acute) Acute left eye pain (Acute) Vision changes (Acute) Eye pain (Acute) Right leg weakness (Acute) Right ankle instability (Acute) URI, acute (Acute) COVID (Acute) Migraine headache without aura (Acute) Migraine headache with aura (Acute) Migraine with status migrainosus (Acute) 10/22/21. prophylactic medication changed to Propranalol 20mg BID. Pt will f/u with Dr. Nunez Encounter for sterilization (Acute) Depression with anxiety (Chronic) Leg pain (Acute) Idiopathic small fiber peripheral neuropathy (Acute) Medical History Sterilization consult Fibromyalgia History of prior with SGA History of anorexia nervosa History of penicillin allergy Family history of thyroid disease in mother Mother had thyroidectomy as well as MGM PTSD (post-traumatic stress disorder) Pt. states nothing is a potential trigger Suicidal ideation history of SI ADHD Opioid dependence No MAT for 6 years Tobacco use Hx of varicella Acute recurrent otitis media Idiopathic peripheral neuropathy Surgical History Status post primary low transverse section 10/20/2021. Arrest of labor. No significant past surgical history Family History Mother Devic's syndrome Headache Sister Cancer bone marrow cancer Social History Smoking/Tobacco Use Status: Current-Occasional Tobacco Type: e-cigarettes Smoking risk assessment performed?: Yes Alcohol Intake: current Alcohol Intake frequency: a few times a month Alcohol type: beer Drug use: Rarely Substance use type: marijuana Details: last time smoked over a year per pt. Adopted: No Household members: children Housing: house Number of Children: 2 current occupation: [employer] working Pets and animals: Yes ([email or web address]) Current gender identity: female What is your relationship status?: never Panel score (0-1 are the most socially isolated patients): 0 What type of physical activity do you participate in: none Seatbelt use: sometimes Do you feel safe at home: Yes Do you feel safe in your relationship?: Yes History History 2 Para 2 Hx # Term Pregnancies 2 Multiple births 0 Hx # Pregnancies 0 Ectopic pregnancies 0 AB induced 0 Hx Number of Living Children 2 AB spontaneous 0 Past Pregnancies Del. Date GA/Weeks # Preg Succ Route Wgt Sex Labor Lgth Anesthesia Location Prov Complic 04/11/13 40 No vaginal 2409.709 g Female 14 regional Anea 10/20/21 39 No 4082.331 g Male Jerica Hernandez Delivery Date: 04/11/13 Last Updated by: Leilani Putnam CNM SGA, Rachelle Delivery Date: 10/20/21 Last Updated by: ARI Hunter Have you Been Recently Intoxicated or Drunk Within the Last 30 days?: No Have you Ever Experienced Previous Episodes of Alcohol Withdrawal?: No Have you ever Experienced Withdrawal Seizures?: No Have you ever Experienced Delirium Tremens(DT)s?: No Have you ever undergone Alcohol Rehabilitation Treatment (i.e, inpt ot outpatient treatment programs)?: No Have you ever Experienced Blackouts?: No Have you ever Combined Alcohol with other Downers within the last 90 days?: No Have you ever Combined Alcohol with any other Substance of Abuse during the last 90 days?: No Positive Blood Alcohol level on Presentation? [PCS.BAL]: No Evidence of Increased Autonomic Activity (i.e. HR>120, tremor, sweating, agitation, nausea)?: No Result: 0
[2024-02-04] MEDS: Normal Saline 1,000 ML 1000 ML IV (13:40)
[2024-02-04 13:45] LABS: Lactate 1.2 mmol/L (0.6-1.4)
[2024-02-04] MEDS: Droperidol 5 MG/2 ML VIAL 1.25 MG IVP (13:45)
[2024-02-04 13:46] LABS: Abs Immature Grans 0.04 10^3/uL (0.0-0.06); Absolute Basophil Count 0.02 10^3/uL (0.0-0.2); Absolute Eosinophil Count 0.01 10^3/uL (0.0-0.7); Absolute Lymphocyte Count 0.96 10^3/uL (1.2-3.4); Absolute Monocyte Count 0.19 10^3/uL (0.1-0.8); Absolute Neutrophil Count 7.45 10^3/uL (1.2-6.7); Basophils % 0.2 %; Eosinophils % 0.1 %; HCT 44.7 % (36.0-46.0); HGB 15.7 g/dL (11.2-15.7); Immature Grans % 0.5 %; Lymphocytes % 11.1 %; MCH 31.9 pg (27.0-33.0); MCHC 35.1 % (32.0-36.0); MCV 91 fL (80-95); MPV 9.8 fL (8.0-11.0); Monocytes % 2.2 %; Neutrophils % 85.9 %; Platelet Count 212 10^3/uL (130-400); RBC 4.92 10^6/uL (3.93-5.22); RDW 11.8 % (11.7-14.6); RDW-SD 39.2 fL; WBC 8.67 10^3/uL (4.4-10.8)
[2024-02-04 14:11] LABS: ALT 20 U/L (14-59); AST 19 U/L (15-37); Albumin 4.7 g/dL (3.4-5.0); Alkaline Phosphatase 70 U/L (46-116); Anion Gap 7.8 mmol/L (3-11); BUN 20 mg/dL (7-18); Bilirubin, Total 0.95 mg/dL (0.2-1.0); CO2 29.2 mmol/L (21.0-32.0); Calcium 9.3 mg/dL (8.5-10.1); Chloride 102 mmol/L (98-107); Estimated GFR 77.24 (mL/min/1.73m2); Glucose 96 mg/dL (74-106); Magnesium 1.8 mg/dL (1.8-2.4); Potassium 5.1 mmol/L (3.5-5.1); Sodium 139 mmol/L (136-145); TSH (W/Ref FT4) 1.96 uIU/mL (0.36-3.74); Total Protein 8.3 g/dL (6.4-8.2); Troponin I < 50 ng/L (< or =60)
--- NOTE | 2024-02-04 16:43 | W.EDPROG ---
Date of service: 02/04/24 Time of Service: 16:00 Medical Decision Making Handoff received from Jake HILL, daytime RIKKI. Please see his note for full HPI/ROS/PE, workup, and consult. Pending repeat troponin; discharge instructions already written by outgoing provider. Radha is a 33 year old female recently diagnosed with optic neuritis who presented to the ED today for evaluation of dizziness with syncope x 2. Radha is resting comfortably in room, says she is feeling better after droperidrol. Reviewed discharge instructions with patient and her mother, including importance of follow-up with [facility] ophthalmology tomorrow as scheduled, as well as flags indicating need for return to emergency care. Quality:SDOH Health Related Social Needs: No Data to Display Discharge Plan Disposition Patient Disposition: Home Condition: Stable Discharge Details Clinical Impression: Left eye pain, Syncope Primary Care Provider: Avis Koch ED Provider: Rafaela Zuluaga Home Meds and New Rx's Prescriptions: Continued lamotrigine 100 mg tablet 150 mg PO DAILY Aimovig Autoinjector 140 mg/mL auto-injector 140 mg subcut QMONTH Qty: 1 11RF lorazepam 0.5 mg tablet 0.5 mg PO ONCE PRN (Reason: anxiety/claustrophobia) Qty: 2 0RF Rx Instructions: Take one tablet 30min prior to MRI. Ok to take second at time of MRI if still anxious. Do not drive after taking. naratriptan 2.5 mg tablet See Rx Instructions PO .COMPLEX Qty: 12 3RF Rx Instructions: take 1 tab at onset of headache; if no relief may repeat 1 tab after at least 4 hrs; max = 2 tabs/24 hrs PO Viibryd 10 mg (7)- 20 mg (23) tablets,dose pack 40 dose pk PO DIRECTED Patient Comments: TAKE ONE BY MOUTH EVERY DAY WITH FOOD Discharge Instructions Instructions: Optic neuritis, Fainting, Adult ED Additional Instructions: Dr Figueroa of [facility] Ophthalmology will see at [facility] at 11am tomorrow at [facility]. You likely had a vasovagal response today as cause of your syncope and there was no concerns on your EKG or multiple troponins for cardiac cause of syncope, your eye pain may be related to past severe migraines but I have arranged for ophthalmology follow-up tomorrow at [facility] for you. Referrals: [facility] [Outside] Avis Koch [Primary Care Provider] -
[2024-02-04 16:54] LABS: Troponin I < 50 ng/L (< or =60)
== END 2024-02-04 17:44 | disposition home or self-care (01) ==
PROVIDERS: Physician Assistant; Emergency Provider Nurse Practitioner Family; PCP Nurse Practitioner Family
DX: R55 Syncope and collapse (principal); H57.12 Ocular pain, left eye
CPT/HCPCS: 123; 36415; 80053; 93005; 96361; 96374; 99284; 00123; 83605; 83735; 84443; 84484; 85025; 93010; 99283; J1790

== ENCOUNTER 2024-02-06 00:11 | Outpatient (RCR) | payer MEDICAID, SELFPAY ==
--- OUTSIDE RECORDS SUMMARY | 2024-02-04 10:52 | XMS_ITS | Encounter Summary ---
Author Organization [facility] Address [address] [place] [address] Care Team Providers Care Sheet Metal Journeyman Name Role Phone Unknown, Provider Primary Care Provider [phone] Tim Kim MD Primary Care Provider Encounter Details Date Type Department Care Team (Late st Contact Info) Description 07/20/2020 Lab Requisition [facility] Pathology & Laboratory Medicine - [address] [address] Outr Resulting Lab, Provider Social History Tobacco [...] Office Visit [facility] [address] [place] [address] Alan Mann MBBS 111 [facility], [facility] [address] [place] [address] documented as of this encounter Procedures Procedure Name Priority Date/Time Associated Diagnosis Comments SPEP, INCLUDES QUANTITATION OF MONOCLONAL SPIKE Routine 07/20/2020 10:45 EST documented in this encounter Results * SPEP, INCLUDES QUANTITATION OF MONOCLONAL SPIKE (07/20/2020 10:45 EST) Total Protein 7.3 6.3 - 8.2 g/dL 07/23/2020 12:38 [facility] Albumin % 61.2 55.8 - 66.1 % 07/23/2020 12:38 [facility] Alpha-1 % 4.3 2.9 - 4.9 % 07/23/2020 12:38 [facility] Alpha-2 % 10.1 7.1 - 11.8 % 07/23/2020 12:38 [facility] Beta % 9.9 8.4 - 13.1 % 07/23/2020 12:38 [facility] Gamma % 14.5 11.1 - 18.8 % 07/23/2020 12:38 [facility] SPEP Comment No apparent monoclonal protein seen on serum electrophoresis 07/23/2020 12:38 [facility] Comment:See scanned/suppleme ntary report. Blood VENOUS BLOOD / Unknown 07/20/2020 10:45 EST 07/20/2020 21:02 EST Provider Outr Resulting Lab CHEMISTRY & BLOOD GAS ORDERABLES [facility] [address] [place] [address] documented in this encounter Visit Diagnoses Not on filedocumented in this encounter Care Teams Sheet Metal Journeyman Relationship Specialty Start Date End Date Unknown, MD Lianna PCP - General 04/13/13 09/02/21 Tim Kim MD [address] [place] [address] PCP - General 09/03/21 documented as of this encounter
--- OUTSIDE RECORDS SUMMARY | 2024-02-04 10:52 | XMS_ITS | Encounter Summary ---
Author Organization [facility] Address [address] [place] [address] Care Team Providers Care Aerospace Medicine Physician Name Role Phone Tim Kim MD Primary Care Provider [phone] Encounter Details Date Type Department Care Team (Late st Contact Info) Description 01/09/2022 Lab Requisition [facility] Pathology & Laboratory Medicine [address] [address] Griselda Alonso MD [address] [place] [address] [place] [address] Encounter for sterilization Social History [...] Description 04/28/2024 14:45 EDT Office Visit [facility] Rheumatology [address] [place] [phone] Alan Mann MBBS 111 [facility], [facility] [address] [place] [address] documented as of this encounter [...] explore management options, if applicable. 01/13/2022 14:36 [facility] Final Diagnosis A. FALLOPIAN TUBE, LEFT, PARTIAL SALPINGECTOMY: - Segment of fallopian tube with no specific pathologic features. - Full cross-sections identified. B. FALLOPIAN TUBE, RIGHT, PARTIAL SALPINGECTOMY: - Segment of fallopian tube with no specific pathologic features. - Full cross-sections identified. 01/13/2022 14:36 [facility] Attestation There was significant resident/fellow involvement in the diagnostic evaluation of this case. By the signature below, the attending physician certifies that they have personally conducted a gross and/or microscopic examination of the described specimens and rendered or confirmed the above diagnosis. 01/13/2022 14:36 [facility] at 1436 Clinical History Desires sterilization 01/13/2022 14:36 [facility] Gross Description A. Received in formalin labelled with proper patient identification (initials N, S) and left fallopian tube are 2 segments of ott-case, tubular tissue (1.5 cm in length by 0.3 cm in diameter and 5.2 cm in length by 0.4 cm in diameter). The serosal surfaces are smooth and ott-case. No fimbria are present. Three new accounts representative sections are submitted in A1. B. Received in formalin labelled with proper patient identification (initials N, S) and right fallopian tube is a 5.7 cm in length by 0.5 cm in diameter fimbriated fallopian tube. The serosa is smooth and purple-case. Sectioning reveals a patent, unremarkable lumen. Truss Maker sections, to include the bisected fimbria, are submitted in B1-B2. LIZ DOW(ASCP) 01/09/2022 10:02 01/13/2022 14:36 [facility] Resident/Tony w: Florina Lewis DO 01/13/2022 14:36 [facility] Performing Lab [facility] 01/13/2022 14:36 EDT [facility] Scanned Images 01/13/2022 14:36 EDT [facility] Tissue ENTIRE FALLOPIAN TUBE / Unknown 01/08/2022 11:40 EDT 01/09/2022 6:40 EDT Tissue specimen (specimen) FALLOPIAN TUBE STRUCTURE / Unknown 01/08/2022 11:40 EDT 01/09/2022 6:40 EDT Griselda Alonso MD PATHOLOGY ORDERABLES [facility] [address] [place] [address] documented in this encounter Visit Diagnoses Diagnosis Encounter for sterilization Sterilization documented in this encounter Care Teams Aerospace Medicine Physician Relationship Specialty Start Date End Date Tim Kim MD [address] [place] [address] PCP - General 09/03/21 documented as of this encounter
--- OUTSIDE RECORDS SUMMARY | 2024-02-04 10:52 | XMS_ITS | Encounter Summary ---
Author Organization [facility] Address [address] [place] [address] Care Team Providers Care Rnfa Name Role Phone Tim Kim MD Primary Care Provider [phone] Encounter Details Date Type Department Care Team (Late st Contact Info) Description 10/21/2021 Lab Requisition [facility] Pathology & Laboratory Medicine [address] [address] Leilani Hampton, AIRCRAFT CLEANER [address] [place] [phone] Encounter for other general examination Social History [...] Info) Description 04/28/2024 14:45 EDT Office Visit [facility] Rheumatology [address] [place] [address] Alan Mann MBBS 111 [facility], [facility] [address] [place] [phone] documented as of this encounter Procedures Procedure Name Priority Date/Time Associated Diagnosis Comments SCREEN TEST Today 10/21/2021 6:30 EDT Encounter for other general examination documented in this encounter Results * SCREEN TEST (10/21/2021 6:30 EDT) Screen Test NEGATIVE 022 17:54 EDT [facility] Comment:CALLED RESULTS ARUN AT [facility] 10/21/21 @ 17:50. FAXED TO LAB @ [phone] Blood VENOUS BLOOD / Unknown 10/21/2021 6:30 EDT 10/21/2021 17:14 EDT Leilani Hampton APN BLOOD BANK TESTS Performing Organization Address City/State/[facility] Co de Phone Number [facility] [address] [facility] [place] [address] documented in this encounter Visit Diagnoses Diagnosis Encounter for other general examination documented in this encounter Care Teams Rnfa Relationship Specialty Start Date End Date Tim Kim MD [address] [place] [address] PCP - General 09/03/21 documented as of this encounter
--- OUTSIDE RECORDS SUMMARY | 2024-02-04 10:52 | XMS_ITS | Encounter Summary ---
Author Organization [facility] Address [address] [place] [address] Care Team Providers Care Advertising Account Representative Name Role Phone Unknown, Provider Primary Care Provider [phone] Tim Kim MD Primary Care Provider [phone] Encounter Details Date Type Department Care Team (Late st Contact Info) Description 02/07/2020 Lab Requisition [facility] Pathology & Laboratory Medicine - [address] [address] Outr Resulting Lab, Provider Social History Tobacco [...] Info) Description 04/28/2024 14:45 EDT Office Visit [facility] Rheumatology [address] [place] [phone] Alan Mann MBBS 111 [facility], [facility] [address] [place] [phone] documented as of this encounter Procedures Procedure [...] MICROBIOLOGY - GENERAL ORDERABLES Performing Organization Address City/[facility]/ZIP Co de Phone Number [facility] [address] [place] [address] * COVID-19 TESTING (02/07/2020 17:18 EDT) COVID-19 rt-PCR Result Negative Negative 02/08/2020 1:12 EDT [facility] Comment: This test has [...] history, and epidemiological information. Performed on the Wallyher Fusion instrument Performing Lab [facility] 02/08/2020 1:12 EDT [facility] Swab 02/07/2020 17:1 8 EDT 02/07/2020 21:23 EDT Provider Outr Resulting Lab MICROBIOLOGY - GENERAL ORDERABLES Performing Organization Address City/[facility]/ZIP Co de Phone Number [facility] [address] [place] [address] documented in this encounter Visit Diagnoses Not on filedocumented in this encounter Care Teams Advertising Account Representative Relationship Specialty Start Date End Date Unknown, Provider, PCP - General 04/13/13 09/02/21 Tim Kim MD [address] [place] [address] PCP - General 09/03/21 documented as of this encounter
--- OUTSIDE RECORDS SUMMARY | 2024-02-04 10:52 | XMS_ITS | Encounter Summary ---
Author Organization [facility] Address [address] [place] [address] Care Team Providers Care Trolley Car Mechanic Name Role Phone Unknown, Provider Primary Care Provider [phone] Tim Kim MD Primary Care Provider [phone] Encounter Details Date Type Department Care Team (Late st Contact Info) Description 04/05/2021 Lab Requisition [facility] Pathology & Laboratory Medicine - [address] [address] Outr Resulting Lab, Provider Social History Tobacco [...] Office Visit [facility] Rheumatology [address] [place] [address] Alan Mann MBBS 111 [facility], [facility] 5 [place] [phone] documented as of this encounter Procedures Procedure Name Priority Date/Time Associated Diagnosis Comments CHLAMYDIA/N. GONORRHOEAE AMPLIFIED NUCLEIC ACID Routine 04/04/2021 14:15 EDT documented in this encounter Results * CHLAMYDIA/N. GONORRHOEAE AMPLIFIED RNA (04/04/2021 14:15 EDT) Neisseria gonorrhoeae Result Negative Negative 04/08/2021 16:07 EDT [facility] Chlamydia trachomatis Result Negative Negative 04/08/2021 16:07 EDT [facility] Swab ENTIRE WALL OF CERVIX / Unknown 04/04/2021 14:15 EDT 04/05/2021 18:45 EDT Provider Outr Resulting Lab MICROBIOLOGY - GENERAL ORDERABLES Performing Organization Address City/State/[facility] Co de Phone Number [facility] [address] [place] [address] documented in this encounter Visit Diagnoses Not on filedocumented in this encounter Care Teams Trolley Car Mechanic Relationship Specialty Start Date End Date Unknown, Provider, PCP - General 04/13/13 09/02/21 Tim Kim MD [address] [place] [address] PCP - General 09/03/21 documented as of this encounter
--- OUTSIDE RECORDS SUMMARY | 2024-02-04 10:52 | XMS_ITS | Encounter Summary ---
Author Organization [facility] [place] [address] Care Team Providers Care Police Commanding Officer Name Role Phone Tim Kim MD Primary Care Provider [phone] Encounter Details Date Type Department Care Team (Late st Contact Info) Description 10/15/2020 External [place] [address] Samy Mckeon MD [facility] [place] [address] Social History Tobacco Use Types Packs/Day Years [...] on filedocumented in this encounter Care Teams Police Commanding Officer Relationship Specialty Start Date End Date Tim Kim MD [address] [place] [address] PCP - General 05/28/10 documented as of this encounter
--- OUTSIDE RECORDS SUMMARY | 2024-02-04 10:52 | XMS_ITS | Encounter Summary ---
Author Organization [facility] Address [address] [place] [address] Care Team Providers Care Laminator Name Role Phone Unknown, Provider Primary Care Provider [phone] Tim Kim MD Primary Care Provider Encounter Details Date Type Department Care Team (Late st Contact Info) Description 06/15/2020 Lab Requisition [facility] Pathology & Laboratory Medicine - [address] [address] Outr Resulting Lab, Provider Social History Tobacco [...] Office Visit [facility] Rheumatology [address] [place] [address] Alan Mann MBBS 111 [facility], [facility] 5 [place] [phone] documented as of this encounter Procedures Procedure Name Priority Date/Time Associated Diagnosis Comments DO NOT ORDER STANDALONE - BROAD COVID TEST Today 06/14/2020 11:30 EST COVID-19 TESTING Routine 06/14/2020 11:3 0 EST documented in this encounter Results * DO NOT ORDER STANDALONE - BROAD COVID TEST (06/14/2020 11:30 EST) [facility] COVID-19 rt-PCR Result NEGATIVE Negative 06/17/2020 14:27 EST [facility] Comment: 2019-novel Coronavirus (2019-nCoV) not detected [...] in accordance with CLIA regulations, College of [employer] (CAP) guidelines (Sep 22, 2019), and FDA guidance (Sep 03, 2019). This test is only for use under the Food and Drug Administration's Emergency Use Authorization. Swab ENTIRE NASOPHARYNX / Unknown 06/14/2020 11:30 EST 06/15/2020 15:53 EST Provider Outr Resulting Lab MICROBIOLOGY - GENERAL ORDERABLES [facility] [place], [place] * COVID-19 TESTING (06/14/2020 11:30 EST) COVID-19 rt-PCR Result NEGATIVE Negative 06/17/2020 16:45 EST [facility] Comment: 2019-novel Coronavirus (2019-nCoV) not detected [...] in accordance with CLIA regulations, [employer] of [employer] (CAP) guidelines (Sep 22, 2019), and FDA guidance (Sep 03, 2019). This test is only for use under the Food and Drug Administration's Emergency Use Authorization. Performing Lab [facility] 06/17/2020 16:45 EST [facility] Swab 06/14/2020 11:3 0 EST 06/15/2020 15:53 EST Provider Outr Resulting Lab MICROBIOLOGY - GENERAL ORDERABLES [facility] [address] [place] [address] [facility] [place], [place] documented in this encounter Visit Diagnoses Not on filedocumented in this encounter Care Teams Laminator Relationship Specialty Start Date End Date Unknown, Provider, PCP - General 04/13/13 09/02/21 Tim Kim MD [address] [place] [address] PCP - General 09/03/21 documented as of this encounter
--- OUTSIDE RECORDS SUMMARY | 2024-02-04 10:52 | XMS_ITS | Referral Summary ---
Author Organization [facility] Address [address] [place] [address] Care Team Providers Care Vending Route Servicer Name Role Phone Tim Kim MD Primary Care Provider [phone] Encounters Date Type Department Care Team Description 11/04/2023 Lab Requisition [facility] Pathology & Laboratory Medicine - [address] [address] Outr Resulting Lab, Provider from Last 3 [...] Info) Description 04/28/2024 14:45 EDT Office Visit [facility] Rheumatology [address] [place] [address] Alan Mann MBBS 111 [facility], [facility] 5 [place] [phone] Procedures Procedure Name Priority Date/Time Associated Diagnosis [...] IgG <2.3 <20.0 CU 2023 16:56 EDT [facility] Comment:Results were obtaine d with the [employer]Mon[employer] Flash Ro52 chemiluminescent immunoassay. Values obtained with different manufacturers' assay methods must not be used interchangeably. Ro60 Antibody, IgG <7.0 <20.0 CU 2023 16:56 EDT [facility] Comment:Results were obtaine d with the SurveyMon[employer] Flash Ro60 chemiluminescent immunoassay. Values obtained with different manufacturers' assay methods must not be used interchangeably. SSB Antibody, IgG <3.3 <20.0 CU 024 16:56 EDT [facility] Comment:Results were obtaine d with the SurveyMonkey[employer] Flash SS-B chemiluminescent immunoassay. Values obtained with different manufacturers' assay methods must not be used interchangeably. Blood VENOUS BLOOD / Unknown 11/04/2023 11:40 EDT 11/04/2023 21:29 EDT Provider Outr Resulting Lab IMMUNOLOGY A ND SEROLOGY ORDERABLES Performing Organization Address City/[facility]/ZIP Co de Phone Number [facility] [address] [place] [address] * RHEUMATOID FACTOR (11/04/2023 11:40 EDT) Rheumatoid Factor 10.5 <12.0 IU/mL 11/05/2023 0:15 EDT [facility] Blood VENOUS BLOOD / Unknown 11/04/2023 11:40 EDT 11/04/2023 21:29 EDT Provider Outr Resulting Lab CHEMISTRY & BLOOD GAS ORDERABLES Performing Organization Address City/[facility]/ZIP Co de Phone Number [facility] [address] [place] [address] * ANTI NUCLEAR AB (SHIKHA), IFA (11/04/2023 11:40 EDT) SHIKHA Interpretation Negative Negative 2023 14:44 EDT [facility] Comment:No titer performed, SHIKHA Screen is negative. Blood VENOUS BLOOD / Unknown 11/04/2023 11:40 EDT 11/04/2023 21:29 EDT Narrative [facility] - 11/05/2023 14:44 EDT Results were obtained with the [employer] NOVA Lite HEp-2 SHIKHA Kit by indirect immunofluorescence. Provider Outr Resulting Lab IMMUNOLOGY A ND SEROLOGY ORDERABLES [facility] [address] [place] [address] * HEPATITIS C AB W REFLEX TO HCV RNA BY PCR (04/10/2021 8:58 EDT) Hep C Antibody Negative Negative 04/11/2021 10:07 EDT [facility] Blood VENOUS BLOOD / Unknown 04/10/2021 8:58 EDT 04/10/2021 16:25 EDT Provider Outr Resulting Lab CHEMISTRY & BLOOD GAS ORDERABLES [facility] [address] [place] [address] from Last 3 Months or Most Recently Relevant to Health Maintenance Care Teams Vending Route Servicer Relationship Specialty Start Date End Date Tim Kim MD [address] [place] [address] PCP - General 09/03/21
--- OUTSIDE RECORDS SUMMARY | 2024-02-04 10:52 | XMS_ITS | Encounter Summary ---
Author Organization [facility] Address [address] [place] [address] Care Team Providers Care Credit Control Officer Name Role Phone Unknown, Provider Primary Care Provider Tim Kim MD Primary Care Provider Encounter Details Date Type Department Care Team (Late st Contact Info) Description 04/10/2021 Lab Requisition [facility] Pathology & Laboratory Medicine - [address] [address] Outr Resulting Lab, Provider Social History Tobacco [...] Info) Description 04/28/2024 14:45 EDT Office Visit [facility] Rheumatology [address] [place] [address] Alan Mann MBBS 111 [facility], [facility] 5 [place] [phone] documented as of this encounter Procedures Procedure Name Priority Date/Time Associated Diagnosis Comments HIV 1/2 ANTIGEN AND ANTIBODY, 4TH GENERATION Routine 04/10/2021 8:58 EDT documented in this encounter Results * HIV 1/2 ANTIGEN AND ANTIBODY, 4TH GENERATION (04/10/2021 8:58 EDT) HIV 1 and 2 Antibody/p24 Antigen, 4th Generation Negative Negative 04/11/2021 10:18 EDT [facility] Comment: If acute HIV-1 infection is suspected in a high risk ??patient, submit plasma specimen for HIV-1 RNA quantitation test. Fourth Generation assay performed on the Siemens Digitour Mediaaur. Blood VENOUS BLOOD / Unknown 04/10/2021 8:58 EDT 04/10/2021 16:24 EDT Provider Outr Resulting Lab IMMUNOLOGY A ND SEROLOGY ORDERABLES [facility] [address] [place] [address] documented in this encounter Visit Diagnoses Not on filedocumented in this encounter Care Teams Credit Control Officer Relationship Specialty Start Date End Date Unknown, Provider, PCP - General 04/13/13 09/02/21 Tim Kim MD [address] [place] [address] PCP - General 09/03/21 documented as of this encounter
--- OUTSIDE RECORDS SUMMARY | 2024-02-04 10:52 | XMS_ITS | Encounter Summary ---
Author Organization [facility] Address [address] [place] [address] Care Team Providers Care Activities Coordinator Name Role Phone Unknown, Provider Primary Care Provider [phone] Tim Kim MD Primary Care Provider [phone] Encounter Details Date Type Department Care Team (Late st Contact Info) Description 07/27/2020 Lab Requisition [facility] Pathology & Laboratory Medicine - [address] [address] Outr Resulting Lab, Provider Social History Tobacco [...] Info) Description 04/28/2024 14:45 EDT Office Visit [facility] Rheumatology [address] [place] [address] Alan Mann MBBS 111 [facility], [facility] [address] [place] [phone] documented as of this encounter Procedures Procedure Name Priority Date/Time Associated Diagnosis Comments CHLAMYDIA/N. GONORRHOEAE AMPLIFIED NUCLEIC ACID Routine 07/27/2020 11:25 EST documented in this encounter Results * CHLAMYDIA/N. GONORRHOEAE AMPLIFIED RNA (07/27/2020 11:25 EST) Neisseria gonorrhoeae Result Negative Negative 07/30/2020 14:21 EST [facility] Chlamydia trachomatis Result Negative Negative 07/30/2020 14:21 EST [facility] Swab ENTIRE WALL OF CERVIX / Unknown 07/27/2020 11:25 EST 07/27/2020 22:04 EST Provider Outr Resulting Lab MICROBIOLOGY - GENERAL ORDERABLES Performing Organization Address City/State/[facility] Co de Phone Number [facility] [address] [place] [address] documented in this encounter Visit Diagnoses Not on filedocumented in this encounter Care Teams Activities Coordinator Relationship Specialty Start Date End Date Unknown, Provider, PCP - General 04/13/13 09/02/21 Tim Kim MD [address] [place] [address] PCP - General 09/03/21 documented as of this encounter
--- OUTSIDE RECORDS SUMMARY | 2024-02-04 10:52 | XMS_ITS | Encounter Summary ---
Author Organization [facility] [place] [address] Care Team Providers Care Profile Grinder Name Role Phone Tim Kim MD Primary Care Provider [phone] Reason for Visit * Consultation (Routine) - Closed Specialty Diagnoses / Procedures Referred By Contac t Referred To Contact Neurology Diagnoses Pain in leg, unspecified Tim Kim MD [address] [place] [address] [facility] Neurology [address] [place] [phone] Referral ID Status Reason Start Date Expiration Date V isits Requested Visits Authorized [id number] Closed Consult, Test & Treat [facility] PCP Updated and/or Approved 07/23/2020 07/23/2021 6 6 Encounter Details Date Type Department Care Team (Latest Contact Info) Description 10/15/2020 1:00 PM EDT Procedure [place] [address] Samy Mckeon MD [facility] [place] [address] Bilateral leg paresthesia; Muscle pain Social History [...] well as recent note from neurology at [facility]. Radha first noted pain in her lower [...] today. She ended up having evaluation in [place]. She had several lab tests per the [facility] neurology notes. This included unremarkable CBC, CMP, TSH, magnesium, CK, CCP, celiac antibodies, Lyme panel, SHIKHA, rheumatoid factor, ESR, CRP. 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 She also had lumbar spine MRI at [facility] and it was unrevealing for an [...] toes downgoing to plantar stimulation. Coordination normal hwwrgl-kgod-xachor and mtne-yxmw-[id number] testing. Gait slow but no ataxia. Antalgic [...] set her up for that here at [facility] although we also discussed that even if positive it would otherwise not exchange engineer likely. If it was positive further B [...] she like to have that done at [facility] in [facility] we could arrange that for her. I [...] this office visit is 45 minutes including duwb-ko-txun time, chart review, and documentation. Time was exclusive of the time for EMG nerve conduction studies. This note was created with voice recognition software. documented in this encounter Plan of Treatment Not on file documented as of this encounter Visit Diagnoses Diagnosis Bilateral leg paresthesia Disturbance of skin sensation Muscle pain Mylagia and myositis, unspecified documented in this encounter Care Teams Profile Grinder Relationship Specialty Start Date End Date Tim Kim MD [address] [place] [address] PCP - General 05/28/10 documented as of this encounter
--- OUTSIDE RECORDS SUMMARY | 2024-02-04 10:52 | XMS_ITS | Encounter Summary ---
Author Organization [facility] Address [address] [place] [address] Care Team Providers Care Marine Fisheries Technician Name Role Phone Unknown, Provider Primary Care Provider Encounter Details Date Type Department Care Team (Late st Contact Info) Description 04/13/2013 Results Only [facility] Services - [facility] ([facility] [address] [place] [address] Unknown, Provider, Social History Tobacco Use Types Packs/Day Years Used Date Smoking Tobacco: Never Assessed Sex and Gender Information Value Date Recorded Sex Assigned at Not on file Gender Identity Not on file Sexual Orientation Not on file documented as of this encounter Plan of Treatment Upcoming Encounters Date Type Department Care Team (Late st Contact Info) Description 04/28/2024 14:45 EDT Office Visit [facility] Rheumatology [address] [place] [address] Alan Mann MBBS 111 [facility], [facility] 5 [place] [phone] documented as of this encounter Procedures Procedure Name Priority Date/Time Associated Diagnosis Comments SCREEN TEST Routine 04/13/2013 16: 03 EDT documented in this encounter Results * SCREEN TEST (04/13/2013 16:03 EDT) Screen Test NEGATIVE [facility] 04/13/2013 16:0 3 EDT Provider Unknown BLOOD BANK TESTS [facility] [address] [place] [address] documented in this encounter Visit Diagnoses Not on filedocumented in this encounter Care Teams Marine Fisheries Technician Relationship Specialty Start Date End Date Unknown, Provider, PCP - General 04/13/13 09/02/21 documented as of this encounter
--- OUTSIDE RECORDS SUMMARY | 2024-02-04 10:52 | XMS_ITS | Clinical Summary ---
Author Organization [facility] Address [facility] [place] [address] Care Team Providers Care Rn Ent Name Role Phone Tim Kim MD Primary [...] - Influenza standard series) 03/06/2024 Care Teams Rn Ent Relationship Specialty Start Date End Date Tim Kim MD [address] [place] [address] PCP - General 05/28/10
--- OUTSIDE RECORDS SUMMARY | 2024-02-04 10:52 | XMS_ITS | Encounter Summary ---
Author Organization [facility] Address [address] [place] [address] Care Team Providers Care Wool Hat Sanding Machine Operator Name Role Phone Tim Kim MD Primary Care Provider [phone] Encounter Details Date Type Department Care Team (Late st Contact Info) Description 11/04/2023 Lab Requisition [facility] Pathology & Laboratory Medicine - [address] [address] Outr Resulting Lab, Provider Social History Tobacco [...] Info) Description 04/28/2024 14:45 EDT Office Visit [facility] Rheumatology [address] [place] [address] Alan Mann MBBS [address] [place] [address], [facility] [address] [place] [phone] documented as of this encounter Procedures Procedure Name Priority Date/Time Associated Diagnosis Comments SSA/SSB PANEL Routine 11/04/2023 11:40 EDT RHEUMATOID FACTOR Routine 11/04/2023 11: 40 EDT ANTI NUCLEAR AB (SHIKHA), IFA Routine 11/04/2023 11:40 EDT documented in this encounter Results * RHEUMATOID FACTOR (11/04/2023 11:40 EDT) Rheumatoid Factor 10.5 <12.0 IU/mL 11/05/2023 0:15 EDT [facility] Blood VENOUS BLOOD / Unknown 11/04/2023 11:40 EDT 11/04/2023 21:29 EDT Provider Outr Resulting Lab CHEMISTRY & BLOOD GAS ORDERABLES Performing Organization Address [facility] Co de Phone Number [facility] [address] [place] [address] * SSA/SSB PANEL (11/04/2023 11:40 EDT) Ro52 Anitbody, IgG <2.3 <20.0 CU 2023 16:56 EDT [facility] Comment:Results were obtaine d with the [employer] Flash Ro52 chemiluminescent immunoassay. Values obtained with different manufacturers' assay methods must not be used interchangeably. Ro60 Antibody, IgG <7.0 <20.0 CU 2023 16:56 EDT [facility] Comment:Results were obtaine d with the [employer] Flash Ro60 chemiluminescent immunoassay. Values obtained with different manufacturers' assay methods must not be used interchangeably. SSB Antibody, IgG <3.3 <20.0 CU 024 16:56 EDT [facility] Comment:Results were obtaine d with the [employer] Flash SS-B chemiluminescent immunoassay. Values obtained with different manufacturers' assay methods must not be used interchangeably. Blood VENOUS BLOOD / Unknown 11/04/2023 11:40 EDT 11/04/2023 21:29 EDT Provider Outr Resulting Lab IMMUNOLOGY A ND SEROLOGY ORDERABLES Performing Organization Address [facility]/ZIP Co de Phone Number [facility] [address] [place], [place] [id number] * ANTI NUCLEAR AB (SHIKHA), IFA (11/04/2023 11:40 EDT) SHIKHA Interpretation Negative Negative 2023 14:44 EDT [facility] Comment:No titer performed, SHIKHA Screen is negative. Blood VENOUS BLOOD / Unknown 11/04/2023 11:40 EDT 11/04/2023 21:29 EDT Narrative [facility] - 11/05/2023 14:44 EDT Results were obtained with the INOVA NOVA Lite HEp-2 SHIKHA Kit by indirect immunofluorescence. Provider Outr Resulting Lab IMMUNOLOGY A ND SEROLOGY ORDERABLES [facility] [address] [place] [address] documented in this encounter Visit Diagnoses Not on filedocumented in this encounter Care Teams Wool Hat Sanding Machine Operator Relationship Specialty Start Date End Date Tim Kim MD [address] [place], [place] [id number] PCP - General 09/03/21 documented as of this encounter
--- OUTSIDE RECORDS SUMMARY | 2024-02-04 10:52 | XMS_ITS | Encounter Summary ---
Author Organization [facility] Address [address] [place] [address] Care Team Providers Care Residential Substance Abuse Counselor Name Role Phone Unknown, Provider Primary Care Provider [phone] Encounter Details Date Type Department Care Team (Late st Contact Info) Description 12/25/2016 Results Only [facility]- [facility] [phone] Damien Hilton, [facility]- [address] [place] [address] Social History Tobacco Use Types Packs/Day Years Used Date Smoking Tobacco: Never Assessed Sex and Gender Information Value Date Recorded Sex Assigned at Not on file Gender Identity Not on file Sexual Orientation Not on file documented as of this encounter Plan of Treatment Upcoming Encounters Date Type Department Care Team (Late st Contact Info) Description 04/28/2024 14:45 EDT Office Visit [facility] - [facility] Rheumatology [address] [place] [address] Alan Mann MBBS 111 [facility], [facility] 5 [place] [address] documented as of this encounter [...] ? RADHA SCHMIDT ? Accession #: ? [id number] : ? 1990 (Age: 26) ??F ?Collect Date: ? 12/25/2016 Location: ? [facility] ? Receive Date: ? 12/29/2016 Provider: ?DAMIEN APODACA POWER GENERATION ENGINEER-BC Copy to: ? Specimen/Source: ?Pap Test, Cervix, ThinPrep Imaging System with manual evaluation Last Menstrual Period: ? SPECIMEN ADEQUACY ? Satisfactory for Evaluation - transformation zone component absent GENERAL CATEGORIZATION ? Negative for Intraepithelial Lesion or Malignancy ? Document reviewed and electronically signed by: ? Criss Crooks, CT(ASCP) ? Report Date: ??01/08/2017 08:56 End of Report [facility] 12/25/2016 12/29/2016 Damien Hilton POWER GENERATION ENGINEER-BC PATHOLOGY ORDERA BLES [facility] [address] [place] [address] documented in this encounter Visit Diagnoses Not on filedocumented in this encounter Care Teams Residential Substance Abuse Counselor Relationship Specialty Start Date End Date Unknown, Provider, PCP - General 04/13/13 09/02/21 documented as of this encounter
--- OUTSIDE RECORDS SUMMARY | 2024-02-04 10:52 | XMS_ITS | Encounter Summary ---
Author Organization [facility] Address [address] [place] [address] Care Team Providers Care Memorial Mason Name Role Phone Tim Kim MD Primary Care Provider [phone] Encounter Details Date Type Department Care Team (Late st Contact Info) Description 11/03/2023 Lab Requisition [facility] Pathology & Laboratory Medicine - [address] [address] Outr Resulting Lab, Provider Social History Tobacco [...] EDT Office Visit [facility] Rheumatology [address] [place] [address] Alan Mann MBBS [address] [place] [address], [facility] 5 [place] [phone] documented as of this encounter Procedures Procedure Name Priority Date/Time Associated Diagnosis Comments HSV (HERPES SIMPLEX VIRUS) MOLECULAR DETECTION, PCR Routine 11/02/2023 17:25 EDT documented in this encounter Results * HSV (HERPES SIMPLEX VIRUS) MOLECULAR DETECTION, PCR (11/02/2023 17:25 EDT) Herpes Simplex Virus Molecular Detection 1, PCR Negative Negative 11/04/2023 9:44 EDT [facility] Herpes Simplex Virus Molecular Detection 2, PCR Negative Negative 11/04/2023 9:44 EDT [facility] Swab ABSCESS MORPHOLOGY / Unknown 11/02/2023 17:25 EDT 11/03/2023 17:42 EDT Provider Outr Resulting Lab MICROBIOLOGY - GENERAL ORDERABLES Performing Organization Address City/State/[facility] Co de Phone Number [facility] [address] [place] [address] documented in this encounter Visit Diagnoses Not on filedocumented in this encounter Care Teams Memorial Mason Relationship Specialty Start Date End Date Tim Kim MD [address] [place], [place] [id number] PCP - General 09/03/21 documented as of this encounter
--- OUTSIDE RECORDS SUMMARY | 2024-02-04 10:52 | XMS_ITS | Encounter Summary ---
Author Organization [facility] Address [address] [place] [address] Care Team Providers Care Knife Finisher Name Role Phone Unknown, Provider Primary Care Provider Tim Kim MD Primary Care Provider [phone] Encounter Details Date Type Department Care Team (Late st Contact Info) Description 12/17/2020 Lab Requisition [facility] Pathology & Laboratory Medicine - [address] [address] Pam Means MD 111 [facility] 4 [place] [phone] Encounter for other general examination Social History [...] Info) Description 04/28/2024 14:45 EDT Office Visit [facility] Rheumatology [address] [place] [address] Alan Mann MBBS 111 [facility] 5 [place] [address] documented as of this encounter Procedures Procedure Name Priority Date/Time Associated Diagnosis Comments PAP TEST Today 12/14/2020 9:10 EDT Encounter for other general examination documented in this encounter Results * PAP TEST (12/14/2020 9:10 EDT) Specimens A. Cervix and/or Endocervix , ThinPrep Imaging System with Manual Evaluation 12/25/2020 10:17 EDT [facility] Specimen Adequacy Satisfactory for Evaluation - transformation zone component present 12/25/2020 10:17 EDT [facility] General Categorization Negative for intraepithelial lesion or malignancy 12/25/2020 10:17 EDT [facility] Attestation . 12/25/2020 10:17 EDT [facility] at 1017 Clinical History See below 12/26/19 10:17 EDT [facility] Performing Lab [facility] 12/25/2020 10:17 T [facility] Scanned Images 12/25/2020 10:17 EDT [facility] Papanicolaou smear specimen (specimen) CERVIX UTERI STRUCTURE / Unknown 12/14/2020 9:10 EDT 12/17/2020 15:30 EDT Pam Means MD PATHOLOGY ORDERAB LES [facility] [address] [place] [address] documented in this encounter Visit Diagnoses Diagnosis Encounter for other general examination documented in this encounter Care Teams Knife Finisher Relationship Specialty Start Date End Date Unknown, Provider, PCP - General 04/13/13 09/02/21 Tim Kim MD [address] [place] [address] PCP - General 09/03/21 documented as of this encounter
--- OUTSIDE RECORDS SUMMARY | 2024-02-04 10:52 | XMS_ITS | Encounter Summary ---
Author Organization [facility] Address [address] [place] [address] Care Team Providers Care Electric Tape Slitter Name Role Phone Tim Kim MD Primary Care Provider [phone] Encounter Details Date Type Department Care Team (Late st Contact Info) Description 10/21/2021 Lab Requisition [facility] Pathology & Laboratory Medicine - [address] [address] Jerica Hernandez [address] [place] [address] [place] [address] Encounter for other general examination [...] Info) Description 04/28/2024 14:45 EDT Office Visit [facility] Rheumatology [address] [place] [address] Alan Mann MBBS 111 [facility], [facility] 5 [place] [phone] documented as of this encounter Procedures Procedure [...] explore management options, if applicable. 10/30/2021 16:27 [facility] Final Diagnosis A. PLACENTA: [...] - No significant histopathologic changes. 10/30/2021 16:27 [facility] Diagnosis Comment Diagnostic rangel [...] smooth muscle. Sandoval MATHIAS, Edith Dasilva (2020). Plush of Placental Pathology. AFIP Atlases of Tumor and non-Tumor Pathology (Series 5). [place] [employer]; [place], [place]. Adapted from Nestor RW, Shubham O, Carolina D, Frances F, Magalie V, Corey Arenas; Society for Pediatric Pathology, Section, Amniotic Fluid Infection Nosology Committee. 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 Pediatr Dev Pathol. 2002-Apr;6(5):435-4 8. 10/30/2021 16:27 [facility] Attestation By the signature below, the attending physician certifies that they have 1) personally conducted a gross and/or microscopic examination of the described specimen(s), and/or personally interpreted the results of laboratory testing of the described specimen(s), and 2) personally rendered or confirmed the above diagnosis. 10/30/2021 16:27 [facility] at 1627 Clinical History Active labor, 38.6 weeks 10/30/2021 16:27 [facility] Gross Description A. Received [...] and has a partly gelatinous cut surface. Victim Advocate sections are submitted as follows: BLOCK RANGEL [...] LIZ ASHLEY(ASCP) 10/22/2021 14:27 10/30/2021 16:27 EDT [facility] Performing Lab [facility] 16:27 EDT [facility] Scanned Images 10/30/2021 16:27 EDT [facility] Tissue PLACENTAL STRUCTURE / Unknown 10/20/2021 21:46 EDT 10/21/2021 17:21 EDT Jercia Hernandez PATHOLOGY ORDERABLES [facility] [address] [place] [address] documented in this encounter Visit Diagnoses Diagnosis Encounter for other general examination documented in this encounter Care Teams Electric Tape Slitter Relationship Specialty Start Date End Date Tim Kim MD [address] [place] [address] PCP - General 09/03/21 documented as of this encounter
--- OUTSIDE RECORDS SUMMARY | 2024-02-04 10:52 | XMS_ITS | Clinical Summary ---
Author Organization [facility] Address [address] [place] [address] Care Team Providers Care Product Distribution Specialist Name Role Phone Tim Kim MD Primary Care Provider [phone] Encounters Date Type Department Care Team Description 11/04/2023 Lab Requisition [facility] Pathology & Laboratory Medicine - [address] [address] Outr Resulting Lab, Provider from Last 3 [...] 04/28/2024 14:45 EDT Office Visit [facility] Rhe[facility]ology [address] [place] [address] Alan Mann MBBS 111 [facility], [facility] 5 [place] [phone] Health Maintenance Due Date Last Done Comments [...] <20.0 CU 2023 16:56 EDT [facility] Comment:Results were obtaine d with the Pole StarA Flash Ro52 chemiluminescent immunoassay. Values obtained with different manufacturers' assay methods must not be used interchangeably. Ro60 Antibody, IgG <7.0 <20.0 CU 2023 16:56 EDT [facility] Comment:Results were obtaine d with the SolveBio QUANTA Flash Ro60 chemiluminescent immunoassay. Values obtained with different manufacturers' assay methods must not be used interchangeably. SSB Antibody, IgG <3.3 <20.0 CU 024 16:56 EDT [facility] Comment:Results were obtaine d with the Pole StarA Flash SS-B chemiluminescent immunoassay. Values obtained with different manufacturers' assay methods must not be used interchangeably. Blood VENOUS BLOOD / Unknown 11/04/2023 11:40 EDT 11/04/2023 21:29 EDT Provider Outr Resulting Lab IMMUNOLOGY A ND SEROLOGY ORDERABLES [facility] [address] [place] [address] * RHEUMATOID FACTOR (11/04/2023 11:40 EDT) Rheumatoid Factor 10.5 <12.0 IU/mL 11/05/2023 0:15 EDT [facility] Blood VENOUS BLOOD / Unknown 11/04/2023 11:40 EDT 11/04/2023 21:29 EDT Provider Outr Resulting Lab CHEMISTRY & BLOOD GAS ORDERABLES Performing Organization Address [facility]/ZIP Co de Phone Number [facility] [address] [place], [place] [address] * ANTI NUCLEAR AB (SHIKHA), IFA (11/04/2023 11:40 EDT) SHIKHA Interpretation Negative Negative 2023 14:44 EDT [facility] Comment:No titer performed, SHIKHA Screen is negative. Blood VENOUS BLOOD / Unknown 11/04/2023 11:40 EDT 11/04/2023 21:29 EDT Narrative [facility] - 11/05/2023 14:44 EDT Results were obtained with the Equall[employer] NOVA Lite HEp-2 SHIKHA Kit by indirect immunofluorescence. Provider Outr Resulting Lab IMMUNOLOGY A ND SEROLOGY ORDERABLES Performing Organization Address [facility] Co de Phone Number [facility] [address] [place] [address] * HEPATITIS C AB W REFLEX TO HCV RNA BY PCR (04/10/2021 8:58 EDT) Hep C Antibody Negative Negative 04/11/2021 10:07 EDT [facility] Blood VENOUS BLOOD / Unknown 04/10/2021 8:58 EDT 04/10/2021 16:25 EDT Provider Outr Resulting Lab CHEMISTRY & BLOOD GAS ORDERABLES [facility] [address] [place] [address] from Last 3 Months or Most Recently Relevant to Health Maintenance Care Teams Product Distribution Specialist Relationship Specialty Start Date End Date Tim Kim MD [address] [place] [address] PCP - General 09/03/21
--- OUTSIDE RECORDS SUMMARY | 2024-02-04 10:52 | XMS_ITS | Encounter Summary ---
Author Organization [facility] Address [address] [place] [address] Care Team Providers Care Drier Operator Head Name Role Phone Unknown, Provider Primary Care Provider [phone] Tim Kim MD Primary Care Provider [phone] Encounter Details Date Type Department Care Team (Late st Contact Info) Description 04/10/2021 Lab Requisition [facility] Pathology & Laboratory Medicine - [address] [phone] Outr Resulting Lab, Provider Social History Tobacco [...] Info) Description 04/28/2024 14:45 EDT Office Visit [facility] Rheumatology [address] [place] [address] Alan Mann MBBS 111 [facility], [facility] 5 [place] [phone] documented as of this encounter Procedures Procedure Name Priority Date/Time Associated Diagnosis Comments HEPATITIS C AB W REFLEX TO HCV RNA BY PCR Routine 04/10/2021 8:58 EDT HEPATITIS B SURFACE ANTIGEN Routine 04/10/2021 8:58 EDT documented in this encounter Results * HEPATITIS B SURFACE ANTIGEN (04/10/2021 8:58 EDT) Hep B Surface Ag Negative Negative 04/11/2021 9:26 EDT [facility] Blood VENOUS BLOOD / Unknown 04/10/2021 8:58 EDT 04/10/2021 16:25 EDT Provider Outr Resulting Lab CHEMISTRY & BLOOD GAS ORDERABLES Performing Organization Address City/[facility]/ZIP Co de Phone Number [facility] [address] [place] [address] * HEPATITIS C AB W REFLEX TO HCV RNA BY PCR (04/10/2021 8:58 EDT) Hep C Antibody Negative Negative 04/11/2021 10:07 EDT [facility] Blood VENOUS BLOOD / Unknown 04/10/2021 8:58 EDT 04/10/2021 16:25 EDT Provider Outr Resulting Lab CHEMISTRY & BLOOD GAS ORDERABLES Performing Organization Address [facility] de Phone Number [facility] [address] [place] [address] documented in this encounter Visit Diagnoses Not on filedocumented in this encounter Care Teams Drier Operator Head Relationship Specialty Start Date End Date Unknown, MD Lianna PCP - General 04/13/13 09/02/21 Tim Kim MD [address] [place] [address] PCP - General 09/03/21 documented as of this encounter
--- OUTSIDE RECORDS SUMMARY | 2024-02-04 10:52 | XMS_ITS | Encounter Summary ---
Author Organization [facility] Address [address] [place] [address] Care Team Providers Care Icu Staff Nurse Name Role Phone Unknown, Provider Primary Care Provider [phone] Tim Kim MD Primary Care Provider [phone] Encounter Details Date Type Department Care Team (Late st Contact Info) Description 04/10/2021 Lab Requisition [facility] Pathology & Laboratory Medicine - [address] [address] Outr Resulting Lab, Provider Social History Tobacco [...] Visit [facility] Rheumatology [address] [place] [address] Alan Mann MBBS 111 [facility], [facility] 5 [place] [phone] documented as of this encounter Procedures Procedure Name Priority Date/Time Associated Diagnosis Comments RUBELLA IGG ANTIBODY Routine 04/10/2021 8:58 EDT VARICELLA IGG ANTIBODY Routine 04/10/2021 8:58 EDT documented in this encounter Results * VARICELLA IGG ANTIBODY (04/10/2021 8:58 EDT) Varicella IgG Ab Positive See Note 04/11/2021 10:06 EDT [facility] Comment:Presence of detectab le Varicella Zoster virus IgG antibodies. Blood VENOUS BLOOD / Unknown 04/10/2021 8:58 EDT 04/10/2021 16:24 EDT Provider Outr Resulting Lab IMMUNOLOGY A ND SEROLOGY ORDERABLES Performing Organization Address [facility] Co de Phone Number [facility] [address] [place] [address] * RUBELLA IGG ANTIBODY (04/10/2021 8:58 EDT) Rubella IgG Ab Negative See Note 04/11/2021 10:11 EDT [facility] Comment:Sample is considered negative [...] & BLOOD GAS ORDERABLES Performing Organization Address [facility] Co de Phone Number [facility] [address] [place] [address] documented in this encounter Visit Diagnoses Not on filedocumented in this encounter Care Teams Icu Staff Nurse Relationship Specialty Start Date End Date Unknown, Provider, PCP - General 04/13/13 09/02/21 Tim Kim MD [address] [place] [address] PCP - General 09/03/21 documented as of this encounter
[2024-02-04] MEDS: Normal Saline Flush 10 ML SYR IVP (11:47)
[2024-02-04 12:52] LABS: ESR 5 mm/hr (0-20)
[2024-02-04 13:08] LABS: C-Reactive Protein < 0.50 mg/dL (<or=0.5)
[2024-02-05] MEDS: Normal Saline Flush 10 ML SYR IVP (08:19)
[2024-02-06 10:43] VITALS: BP 114/72; PULSE 67; RESP 16; TEMP 36.9; O2SAT 98
== END 2024-03-05 23:59 | disposition home or self-care (01) ==
LOC: INF 00:11
PROVIDERS: Optometrist; PCP Nurse Practitioner Family; Visit Provider Internal Medicine
DX: H46.12 Retrobulbar neuritis, left eye (principal)
CPT/HCPCS: 36415; 85652; 96365; 86003; 86140; J2919

== ENCOUNTER 2024-02-07 03:31 | Emergency (ER) | payer MEDICAID, SELFPAY ==
[2024-02-07 03:35] VITALS: BP 129/86; PULSE 62; RESP 14; TEMP 36.8; O2SAT 99
--- NOTE | 2024-02-07 03:39 | ED.GENADUL_ITS ---
Discharge Plan Disposition Patient Disposition: Home Condition: Stable Discharge Details Clinical Impression: Herpes zoster ophthalmicus of left eye Primary Care Provider: Avis Koch ED Provider: Omega Tapia Elmira Meds and New Rx's Prescriptions: Continued lamotrigine 100 mg tablet 150 mg PO DAILY Aimovig Autoinjector 140 mg/mL auto-injector 140 mg subcut QMONTH Qty: 1 11RF naratriptan 2.5 mg tablet See Rx Instructions PO .COMPLEX Qty: 12 3RF Rx Instructions: take 1 tab at onset of headache; if no relief may repeat 1 tab after at least 4 hrs; max = 2 tabs/24 hrs PO valacyclovir 1 gram tablet 1,000 mg PO TID Patient Comments: Take 1 tablet by mouth three times a day Viibryd 10 mg (7)- 20 mg (23) tablets,dose pack 40 dose pk PO DIRECTED Patient Comments: TAKE ONE BY MOUTH EVERY DAY WITH FOOD Discharge Instructions Instructions: Herpes Keratitis Additional Instructions: You were seen for worsening left eye pain related to zoster involving the eye. You were treated with morphine to control the pain. You are being discharged so that you may be seen by Dr. Kumar this morning as planned. Return to ED for any continued problems or concerns. Referrals: [facility] [Outside] HPI General Mode of arrival: ambulatory . Date/Time Provider Initiated Documentation: 02/07/24 03:32 . Limitations to Documentation: no limitations . Information obtained by: patient . HPI Narrative: Patient presents to ED with severe left eye pain. Patient has had multiple visits for same. Has been seen by ophthalmology. Developed a rash to her forehead just in the last day. Started on valacyclovir with 2 doses orally given. Had been no evidence of corneal involvement on previous exams. Is supposed to be seeing optometry at [facility] today for recheck. Woke up with severe eye pain. Having a little more blurriness to her vision and before. Related Data Home Medications ?Medication ?Instructions ?Recorded ?Confirmed lamotrigine 100 mg tablet 150 mg PO DAILY 03/25/23 02/07/24 vilazodone 10 mg (7)-20 mg (23) 40 dose pk PO DIRECTED 03/25/23 02/07/24 tablets in a titration pack (Viibryd) erenumab-aooe 140 mg/mL 140 mg subcut QMONTH #1 mL 09/15/23 02/07/24 subcutaneous auto-injector (Aimovig Autoinjector) naratriptan 2.5 mg tablet See Rx Instructions PO .COMPLEX 02/01/24 02/07/24 #12 tabs valacyclovir 1 gram tablet 1,000 mg PO TID 02/07/24 02/07/24 Previous Rx's ?Medication ?Instructions ?Recorded erenumab-aooe 140 mg/mL 140 mg subcut QMONTH #1 mL 09/15/23 subcutaneous auto-injector (Aimovig Autoinjector) naratriptan 2.5 mg tablet See Rx Instructions PO .COMPLEX 02/01/24 #12 tabs Allergies Allergy/AdvReac Type Severity Reaction Status Date / Time ibuprofen Allergy Severe Skin Rash Verified 02/07/24 03:43 paroxetine (From Paxil) Allergy Severe throat Verified 02/07/24 03:43 swells penicillin G Allergy Severe Anaphylaxis Verified 02/07/24 03:43 codeine Allergy Intermediate HIVES Verified 02/07/24 03:43 General FRITZ: 3 Review of Systems Narrative: Per HPI Exam Narrative Exam Narrative: Const: WDWN female in obvious pain. VS per triage. HEENT: NC/AT. Rash noted to left forehead. Eyes: PERRL and EOMI. Injected but cornea clear on gross visualization and no hypopyon Neck: Supple. Trachea midline. Lungs: Normal respiratory effort. Neuro: A+O x 3. Normal speech, mentation, gait. Cranial nerves II - XII grossly intact. No gross motor or sensory deficit. Medical Decision Making Patient presenting with left eye pain related to zoster involving the eye. IV established and morphine given for pain control. Subsequently visual acuity was obtained and is 20/60 in the left eye, 20/20 in the right. She has had 2 doses of oral valacyclovir. She is followed by Dr. Kumar locally at this point. Fluorescein staining does not really show any significant uptake. May be a couple of pinpoint uptake in the limbus area at 10:00 and 2:00. Patient much more comfortable after second dose of morphine. 7:00 - Unable to reach anyone on for José. Patient starting to complain of pain again. Will dose with 7.5mg oral MSIR now and discharge to go see Dr. Kumar as planned. Return precautions provided. Medical Records Medical records reviewed: Yes I reviewed the patient's medical records. PFSH All Active Problems (Updated 02/07/24 @ 07:06 by Omega Tapia MD) Herpes zoster ophthalmicus of left eye (Acute) History of penicillin allergy (Acute) Family history of thyroid disease in mother (Acute) Mother had thyroidectomy as well as MGM Syncope (Chronic) Left eye pain (Acute) Acute left eye pain (Acute) Vision changes (Acute) Eye pain (Acute) Right leg weakness (Acute) Right ankle instability (Acute) Migraine headache without aura (Acute) Migraine headache with aura (Acute) Migraine with status migrainosus (Acute) 10/22/21. prophylactic medication changed to Propranalol 20mg BID. Pt will f/u with Dr. Nunez Depression with anxiety (Chronic) Idiopathic small fiber peripheral neuropathy (Acute) Medical History Fibromyalgia History of prior with SGA History of anorexia nervosa PTSD (post-traumatic stress disorder) Pt. states nothing is a potential trigger ADHD Opioid dependence No MAT for 6 years Tobacco use Hx of varicella Idiopathic peripheral neuropathy Surgical History Status post primary low transverse section 10/20/2021. Arrest of labor. Family History Mother Devic's syndrome Headache Sister Cancer bone marrow cancer Social History Smoking/Tobacco Use Status: Current-Occasional Tobacco Type: e-cigarettes Smoking risk assessment performed?: Yes Alcohol Intake: current Alcohol Intake frequency: a few times a month Alcohol type: beer Drug use: Rarely Substance use type: marijuana Details: last time smoked over a year per pt. Adopted: No Household members: children Housing: house Number of Children: 2 current occupation: [employer] working Pets and animals: Yes (hermit crab) Current gender identity: female What is your relationship status?: never Panel score (0-1 are the most socially isolated patients): 0 What type of physical activity do you participate in: none Seatbelt use: sometimes Do you feel safe at home: Yes Do you feel safe in your relationship?: Yes History History 2 Para 2 Hx # Term Pregnancies 2 Multiple births 0 Hx # Pregnancies 0 Ectopic pregnancies 0 AB induced 0 Hx Number of Living Children 2 AB spontaneous 0 Past Pregnancies Del. Date GA/Weeks # Preg Succ Route Wgt Sex Labor Lgth Anesth esia Location Prov Complic 04/11/13 40 No vaginal 2409.709 g Female 14 regional Anea 10/20/21 39 No 4082.331 g Male Ganesh ortiz David Delivery Date: 04/11/13 Last Updated by: Leilani Putnam CNM SGA, Rachelle Delivery Date: 10/20/21 Last Updated by: ARI Hunter
[2024-02-07] MEDS: MORPHine 4 MG/ML SYR IVP ×3 (03:53→04:59)
--- OUTSIDE RECORDS SUMMARY | 2024-02-07 04:00 | XMS_ITS | Encounter Summary ---
Author Organization [facility] [place] [address] Care Team Providers Care Guitar Teacher Name Role Phone Tim Kim MD Primary Care Provider [phone] Reason for Visit * Reason Comments Eye Problem Severe eye pain, p ressure, and bluriness OS. Encounter Details Date Type Department Care Team (Late st Contact Info) Description 02/05/2024 11:00 AM EDT Office Visit Ophthalmology at [facility] [place] [address] Daniel Figueroa MD [facility] [place] [address] Pain of left eye; Blurry vision, left eye Social History Tobacco Use Types Packs/Day Years Used Date Smoking Tobacco: Never Assessed Sex and Gender Information Value Date Recorded Sex Assigned at Not on file Gender Identity Not on file Sexual Orientation Not on file documented as of this encounter Progress Notes * Ady Mendez MD - 02/05/2024 11:00 AM EDT Ophthalmology Exam Assessment Radha Schmidt is a 33 y.o. female presenting for a same day visit with: HPI: 33F with PMHx of migraines (followed by Dr. Kiran neurology, and Dr. Avis Koch at [facility]), complaining of episode of migraine starting 01/27/24. Presented to ED at [facility] where CT head, CTA brain and neck, MRI brain and orbits were all negative for optic neuritis or intracranial process. Seen by Dr. Kumar, PRABHJOT who felt it may be scleritis vs optic neuritis. Started on prednisolone drops without relief, advanced to solumedrol infusions (has received 2x with plans for one more tomorrow). Presented again to ED ([place]) last night after two episodes of syncope, felt to be vasovagal reaction secondary to pain. ED provider referred her to [facility], though did not make an e ffort to contact Dr. Kumar's office. Of note, Mom has a reported history of optic neuritis that caused blindness in one eye. No personal or family history of GCA. Currently has an appointment with neurology next week. Today: Patient reporting pain in the left eye, feels like sharp pain behind the eye. Has not found relief with toradol, mild relief with oxycodone. Reports hazy vision left eye, and pain on eye movement OS when looking up. # Complex migraine vs atypical optic neuritis left eye At this time there is no evidence for optic neuritis on exam, or with imaging including MRI and CT scans of brain and orbit. OCT imaging of the nerve did not reveal any abnormalities. Testing overallreassuring, though patient has already received 2/3 IV doses of solumedrol for concern for optic neuritis. Patient reports mild symptomatic relief with these treatments. At this time, reasonable to complete the third steroid treatment tomorrow if patient feels she is getting relief despite lack of evidence of optic neuritis at this time. Discussed complex migraines can also cause vision changes, pain with eye movements and similar symptoms to what she has experienced. This may be different to her past migraines but could be a separate version of her migraine. - VA 20/40 ph 20/25, near vision 20/20 with correction. Color vision good - No rAPD noted on exam, full eye movements, IOP 10/10 - Optic nerve with sharp margins, no apparent edema - OCT nerve/mac and optos photos appear normal, no evidence of optic nerve edema Plan: - Follow up with neurology (Dr. Kiran) as scheduled next week, and PCP for future cares, especially in light of steroid infusions she has been receiving and possible plans of tapering steroids - Follow closely with [facility] as well as ophthalmology at [facility] as needed. Dr. Kumar, OD notes that they have a 24hr call with an feather sawyer and this would be more convenient for the patient, as well as simpler to have all records and care consolidated - Will forward notes to neurologist and PCP - Non-urgent referral to neuro-ophthalmology for if symptoms persist without answers down the road Return Precautions: Worsening vision (blurriness or loss or double), worsening pain, concerning appearance to the eye (swelling or redness) -- Ady Mendez MD PGY-2 Ophthalmology Pager #[phone] I saw the patient with the following level of supervision: Direct from the attending, Dr. Figueroa * Daniel Figueroa MD - 02/05/2024 11:00 AM EDT I have seen the patient in person and reviewed the history and I agree with the details as written.The assessment and plan were formulated in discussion with me and I agree with them as documented. With normal imaging and exam, low suspicion of optic nerve pathology. Will relay this info to her PCP and Neurologist. Daniel Figueroa MD documented in this encounter Plan of Treatment Not on file documented as of this encounter Procedures Procedure Name Priority Date/Time Associated Diagnosis Comments FUNDUS PHOTOS - OU- BOTH EYES Routine 02/05/2024 1:17 PM EDT Pain of left eye OCT RETINA - OU - BOTH EYES Routine 02/05/2024 1:16 PM EDT Pain of left eye documented in this encounter Results * Fundus Photos - OU - Both Eyes (02/05/2024 1:17 PM EDT) Anatomical Region Laterality Modality Other Narrative 02/05/2024 5:05 PM EDT Right Eye Disc findings include normal observations. Macula findings include normal observations. Vessel findings include normal observations. Periphery findings include normal observations. Left Eye Disc findings include normal observations. Macula findings include normal observations. Vessel findings include normal observations. Periphery findings include normal observations. Daniel Figueroa MD OPHTHALMOLOGY SERVIC ES ORDERABLES * OCT Retina - OU - Both Eyes (02/05/2024 1:16 PM EDT) Anatomical Region Laterality Modality Other Narrative 02/05/2024 5:05 PM EDT Right Eye Quality was good. Scan locations included subfoveal. Findings include normal observations. Left Eye Quality was good. Scan locations included subfoveal. Findings include normal observations. Daniel Figueroa MD OPHTHALMOLOGY SERVIC ES ORDERABLES documented in this encounter Visit Diagnoses Diagnosis Pain of left eye Pain in or around eye Blurry vision, left eye Other specified visual disturbances documented in this encounter Care Teams Guitar Teacher Relationship Specialty Start Date End Date Tim Kim MD [address] [place] [address] PCP - General 05/28/10 documented as of this encounter
--- OUTSIDE RECORDS SUMMARY | 2024-02-07 04:00 | XMS_ITS | Encounter Summary ---
Author Organization [facility] Address [address] [place] [address] Care Team Providers Care Last Ironer Name Role Phone Unknown, Provider Primary Care Provider [phone] Tim Kim MD Primary Care Provider [phone] Encounter Details Date Type Department Care Team (Late st Contact Info) Description 04/05/2021 Lab Requisition [facility] Pathology & Laboratory Medicine - [address] [address] Outr Resulting Lab, Provider Social History Tobacco [...] Info) Description 04/28/2024 14:45 EDT Office Visit [facility] Rheumatology [address] [place] [address] Alan Mann MBBS 111 [facility], [facility] 5 [place] [phone] documented as of this encounter Procedures Procedure [...] - GENERAL ORDERABLES Performing Organization Address City/State/[facility] Co de Phone Number [facility] [address] [place] [address] documented in this encounter Visit Diagnoses Not on filedocumented in this encounter Care Teams Last Ironer Relationship Specialty Start Date End Date Unknown, Provider, PCP - General 04/13/13 09/02/21 Tim Kim MD [address] [place] [address] PCP - General 09/03/21 documented as of this encounter
--- OUTSIDE RECORDS SUMMARY | 2024-02-07 04:00 | XMS_ITS | Encounter Summary ---
Author Organization [facility] Address [address] [place] [address] Care Team Providers Care Power Engineer Name Role Phone Unknown, Provider Primary Care Provider Tim Kim MD Primary Care Provider [phone] Encounter Details Date Type Department Care Team (Late st Contact Info) Description 12/17/2020 Lab Requisition [facility] Pathology & Laboratory Medicine - [address] [address] Pam Means MD 111 [facility] 4 [place] [phone] Encounter for other general examination Social History [...] 04/28/2024 14:45 EDT Office Visit [facility] Rheumatology [address] [place] [address] Alan Mann MBBS 111 [facility] 5 [place] [address] documented as of this encounter Procedures Procedure Name Priority Date/Time Associated Diagnosis Comments PAP TEST Today 12/14/2020 9:10 EDT Encounter for other general examination documented in this encounter Results * PAP TEST (12/14/2020 9:10 EDT) Specimens A. Cervix and/or Endocervix , ThinPrep Imaging System with Manual Evaluation 12/25/2020 10:17 EDT [facility] Specimen Adequacy Satisfactory for Evaluation - transformation zone component present 12/25/2020 10:17 EDT [facility] General Categorization Negative for intraepithelial lesion or malignancy 12/25/2020 10:17 EDT [facility] Attestation . 12/25/2020 10:17 EDT [facility] at 1017 Clinical History See below 12/26/19 10:17 EDT [facility] Performing Lab [facility] 12/25/2020 10:17 T [facility] Scanned Images 12/25/2020 10:17 EDT [facility] Papanicolaou smear specimen (specimen) CERVIX UTERI STRUCTURE / Unknown 12/14/2020 9:10 EDT 12/17/2020 15:30 EDT Pam Means MD PATHOLOGY ORDERAB LES [facility] [address] [place] [address] documented in this encounter Visit Diagnoses Diagnosis Encounter for other general examination documented in this encounter Care Teams Power Engineer Relationship Specialty Start Date End Date Unknown, Provider, PCP - General 04/13/13 09/02/21 Tim Kim MD [address] [place] [address] PCP - General 09/03/21 documented as of this encounter
--- OUTSIDE RECORDS SUMMARY | 2024-02-07 04:00 | XMS_ITS | Encounter Summary ---
Author Organization [facility] Anamaria [facility] [place] [address] Care Team Providers Care Sales Order Administrator Name Role Phone Tim Kim MD Primary Care Provider Encounter Details Date Type Department Care Team (Late st Contact Info) Description 10/15/2020 External [place] [address] Samy Mckeon MD [facility] [place] [address] Social History Tobacco Use Types Packs/Day Years [...] on filedocumented in this encounter Care Teams Sales Order Administrator Relationship Specialty Start Date End Date Tim Kim MD [address] [place] [address] PCP - General 05/28/10 documented as of this encounter
--- OUTSIDE RECORDS SUMMARY | 2024-02-07 04:00 | XMS_ITS | Referral Summary ---
Author Organization [facility] Address [address] [place] [address] Care Team Providers Care Dean Of Student Services Name Role Phone Tim Kim MD Primary Care Provider [phone] Social History Tobacco Use Types Packs/Day Years Used Date Smoking Tobacco: Never Assessed Sex and Gender Information Value Date Recorded Sex Assigned at Not on file Gender Identity Not on file Sexual Orientation Not on file Plan of Treatment Upcoming Encounters Date Type Department Care Team (Late st Contact Info) Description 04/28/2024 14:45 EDT Office Visit [facility] Rheumatology [address] [place] [address] Alan Mann MBBS 111 [facility], [facility] 5 [place] [address] Procedures Procedure Name Priority Date/Time Associated Diagnosis Comments HEPATITIS C AB W REFLEX TO HCV RNA BY PCR Routine 04/10/2021 8:58 EDT from Last 3 Months or Most Recently Relevant to Health Maintenance Results * HEPATITIS C AB W REFLEX TO HCV RNA BY PCR (04/10/2021 8:58 EDT) Hep C Antibody Negative Negative 04/11/2021 10:07 EDT [facility] Blood VENOUS BLOOD / Unknown 04/10/2021 8:58 EDT 04/10/2021 16:25 EDT Provider Outr Resulting Lab CHEMISTRY & BLOOD GAS ORDERABLES [facility] [address] [place] [address] from Last 3 Months or Most Recently Relevant to Health Maintenance Care Teams Dean Of Student Services Relationship Specialty Start Date End Date Tim Kim MD [address] [place] [address] [facility] - General 09/03/21
--- OUTSIDE RECORDS SUMMARY | 2024-02-07 04:00 | XMS_ITS | Encounter Summary ---
Author Organization [facility] Address [address] [place] [address] Care Team Providers Care Can Inspector Name Role Phone Unknown, Provider Primary Care Provider [phone] Tim Kim MD Primary Care Provider Encounter Details Date Type Department Care Team (Late st Contact Info) Description 07/27/2020 Lab Requisition [facility] Pathology & Laboratory Medicine - [address] [address] Outr Resulting Lab, Provider Social History Tobacco [...] Info) Description 04/28/2024 14:45 EDT Office Visit [facility] Rheumatology [address] [place] [address] Alan Mann MBBS 111 [facility], [facility] 5 [place] [phone] documented as of this encounter Procedures Procedure Name Priority Date/Time Associated Diagnosis Comments CHLAMYDIA/N. GONORRHOEAE AMPLIFIED NUCLEIC ACID Routine 07/27/2020 11:25 EST documented in this encounter Results * CHLAMYDIA/N. GONORRHOEAE AMPLIFIED RNA (07/27/2020 11:25 EST) Neisseria gonorrhoeae Result Negative Negative 07/30/2020 14:21 EST [facility] Chlamydia trachomatis Result Negative Negative 07/30/2020 14:21 EST [facility] Swab ENTIRE WALL OF CERVIX / Unknown 07/27/2020 11:25 EST 07/27/2020 22:04 EST Provider Outr Resulting Lab MICROBIOLOGY - GENERAL ORDERABLES Performing Organization Address City/State/[facility] Co de Phone Number [facility] [address] [place] [address] documented in this encounter Visit Diagnoses Not on filedocumented in this encounter Care Teams Can Inspector Relationship Specialty Start Date End Date Unknown, Provider, PCP - General 04/13/13 09/02/21 Tim Kim MD [address] [place] [address] PCP - General 09/03/21 documented as of this encounter
--- OUTSIDE RECORDS SUMMARY | 2024-02-07 04:00 | XMS_ITS | Clinical Summary ---
Author Organization [facility] Address [address] [place] [address] Care Team Providers Care Truck Driving Name Role Phone Tim Kim MD Primary Care Provider [phone] Social History Tobacco Use Types Packs/Day Years Used Date Smoking Tobacco: Never Assessed Sex and Gender Information Value Date Recorded Sex Assigned at Not on file Gender Identity Not on file Sexual Orientation Not on file Plan of Treatment Upcoming Encounters Date Type Department Care Team (Late st Contact Info) Description 04/28/2024 14:45 EDT Office Visit [facility] Rheumatology [address] [place] [address] Alan Mann MBBS 111 [facility], [facility] 5 [place] [address] Health Maintenance Due Date Last Done Comments [...] Negative Negative 04/11/2021 10:07 EDT [facility] Blood VENOUS BLOOD / Unknown 04/10/2021 8:58 EDT 04/10/2021 16:25 EDT Provider Outr Resulting Lab CHEMISTRY & BLOOD GAS ORDERABLES [facility] [address] [place] [address] from Last 3 Months or Most Recently Relevant to Health Maintenance Care Teams Truck Driving Relationship Specialty Start Date End Date Tim Kim MD [address] [place] [address] PCP - General 09/03/21
--- OUTSIDE RECORDS SUMMARY | 2024-02-07 04:00 | XMS_ITS | Encounter Summary ---
Author Organization [facility] Address [address] [place] [address] Care Team Providers Care Staking Press Operator Name Role Phone Unknown, Provider Primary Care Provider [phone] Encounter Details Date Type Department Care Team (Late st Contact Info) Description 12/25/2016 Results Only [facility] [phone] Damien Hilton, [facility]- [address] [place] [address] Social History Tobacco Use Types Packs/Day Years Used Date Smoking Tobacco: Never Assessed Sex and Gender Information Value Date Recorded Sex Assigned at Not on file Gender Identity Not on file Sexual Orientation Not on file documented as of this encounter Plan of Treatment Upcoming Encounters Date Type Department Care Team (Late st Contact Info) Description 04/28/2024 14:45 EDT Office Visit [facility] Rheumatology [address] [place] [address] Alan Mann MBBS 111 [facility], [facility] 5 [place] [address] documented as of this encounter [...] ? RADHA SCHMIDT ? Accession #: ? [id number] : ? 1990 (Age: 26) ??F ?Collect Date: ? 12/25/2016 Location: ? [facility] ? Receive Date: ? 12/29/2016 Provider: ?DAMIEN APODACA KENNEL TECHNICIAN-BC Copy to: ? Specimen/Source: ?Pap Test, Cervix, ThinPrep Imaging System with manual evaluation Last Menstrual Period: ? SPECIMEN ADEQUACY ? Satisfactory for Evaluation - transformation zone component absent GENERAL CATEGORIZATION ? Negative for Intraepithelial Lesion or Malignancy ? Document reviewed and electronically signed by: ? Criss Crooks, CT(ASCP) ? Report Date: ??01/08/2017 08:56 End of Report [facility] 12/25/2016 12/29/2016 Damien Hilton KENNEL TECHNICIAN-BC PATHOLOGY ORDERA BLES [facility] [address] [place] [address] documented in this encounter Visit Diagnoses Not on filedocumented in this encounter Care Teams Staking Press Operator Relationship Specialty Start Date End Date Unknown, Provider, PCP - General 04/13/13 09/02/21 documented as of this encounter
--- OUTSIDE RECORDS SUMMARY | 2024-02-07 04:00 | XMS_ITS | Encounter Summary ---
Author Organization [facility] Address [address] [place] [address] Care Team Providers Care Jackhammer Operator Name Role Phone Tim Kim MD Primary Care Provider [phone] Encounter Details Date Type Department Care Team (Late st Contact Info) Description 01/09/2022 Lab Requisition [facility] Pathology & Laboratory Medicine [address] [address] Griselda Alonso MD [address] [place] [address] [place] [address] Encounter for sterilization Social History [...] Info) Description 04/28/2024 14:45 EDT Office Visit [facility] Rheumatology [address] [place] [address] Alan Mann MBBS 111 [facility], [facility] 5 [place] [address] documented as of this encounter [...] explore management options, if applicable. 01/13/2022 14:36 [facility] Final Diagnosis A. FALLOPIAN TUBE, LEFT, PARTIAL SALPINGECTOMY: - Segment of fallopian tube with no specific pathologic features. - Full cross-sections identified. B. FALLOPIAN TUBE, RIGHT, PARTIAL SALPINGECTOMY: - Segment of fallopian tube with no specific pathologic features. - Full cross-sections identified. 01/13/2022 14:36 [facility] Attestation There was significant resident/fellow involvement in the diagnostic evaluation of this case. By the signature below, the attending physician certifies that they have personally conducted a gross and/or microscopic examination of the described specimens and rendered or confirmed the above diagnosis. 01/13/2022 14:36 [facility] at 1436 Clinical History Desires sterilization 01/13/2022 14:36 [facility] Gross Description A. Received in formalin labelled with proper patient identification (initials N, S) and left fallopian tube are 2 segments of ott-case, tubular tissue (1.5 cm in length by 0.3 cm in diameter and 5.2 cm in length by 0.4 cm in diameter). The serosal surfaces are smooth and ott-case. No fimbria are present. Three group sales representative sections are submitted in A1. B. Received in formalin labelled with proper patient identification (initials N, S) and right fallopian tube is a 5.7 cm in length by 0.5 cm in diameter fimbriated fallopian tube. The serosa is smooth and purple-case. Sectioning reveals a patent, unremarkable lumen. Montessori Teacher sections, to include the bisected fimbria, are submitted in B1-B2. LIZ DOW(ASCP) 01/09/2022 10:02 01/13/2022 14:36 [facility] Resident/Tony w: Florina Lewis DO 01/13/2022 14:36 [facility] Performing Lab [facility] 01/13/2022 14:36 EDT [facility] Scanned Images 01/13/2022 14:36 EDT [facility] Tissue ENTIRE FALLOPIAN TUBE / Unknown 01/08/2022 11:40 EDT 01/09/2022 6:40 EDT Tissue specimen (specimen) FALLOPIAN TUBE STRUCTURE / Unknown 01/08/2022 11:40 EDT 01/09/2022 6:40 EDT Griselda Alonso MD PATHOLOGY ORDERABLES [facility] [address] [place] [address] documented in this encounter Visit Diagnoses Diagnosis Encounter for sterilization Sterilization documented in this encounter Care Teams Jackhammer Operator Relationship Specialty Start Date End Date Tim Kim MD [address] [place] [address] PCP - General 09/03/21 documented as of this encounter
--- OUTSIDE RECORDS SUMMARY | 2024-02-07 04:00 | XMS_ITS | Encounter Summary ---
Author Organization [facility] Address [address] [place] [address] Care Team Providers Care Gas Transfer Operator Name Role Phone Tim Kim MD Primary Care Provider [phone] Encounter Details Date Type Department Care Team (Late st Contact Info) Description 11/03/2023 Lab Requisition [facility] Pathology & Laboratory Medicine - [address] [address] Outr Resulting Lab, Provider Social History Tobacco [...] Info) Description 04/28/2024 14:45 EDT Office Visit [facility] Rheumatology [address] [place] [address] Alan Mann MBBS [address] [place] [address], [facility] 5 [place] [phone] documented as of this encounter Procedures Procedure Name Priority Date/Time Associated Diagnosis Comments HSV (HERPES SIMPLEX VIRUS) MOLECULAR DETECTION, PCR Routine 11/02/2023 17:25 EDT documented in this encounter Results * HSV (HERPES SIMPLEX VIRUS) MOLECULAR DETECTION, PCR (11/02/2023 17:25 EDT) Herpes Simplex Virus Molecular Detection 1, PCR Negative Negative 11/04/2023 9:44 EDT [facility] Herpes Simplex Virus Molecular Detection 2, PCR Negative Negative 11/04/2023 9:44 EDT [facility] Swab ABSCESS MORPHOLOGY / Unknown 11/02/2023 17:25 EDT 11/03/2023 17:42 EDT Provider Outr Resulting Lab MICROBIOLOGY - GENERAL ORDERABLES Performing Organization Address City/State/[facility] Co de Phone Number [facility] [address] [place] [address] documented in this encounter Visit Diagnoses Not on filedocumented in this encounter Care Teams Gas Transfer Operator Relationship Specialty Start Date End Date Tim Kim MD [address] [place], [place] [id number] PCP - General 09/03/21 documented as of this encounter
--- OUTSIDE RECORDS SUMMARY | 2024-02-07 04:00 | XMS_ITS | Encounter Summary ---
[place] [address] Care Team Providers Care Wooden Frame Builder Name Role Phone Tim Kim MD Primary Care Provider Reason for Visit * Consultation (Routine) - Closed Specialty Diagnoses / Procedures Referred By Contac t Referred To Contact Neurology Diagnoses Pain in leg, unspecified Tim Kim MD [address] [place] [address] [facility] Neurology [address] [place] [phone] Referral ID Status Reason Start Date Expiration Date V isits Requested Visits Authorized [id number] Closed Consult, Test & Treat Connection Center PCP Updated and/or Approved 07/23/2020 07/23/2021 6 6 Encounter Details Date Type Department Care Team (Latest Contact Info) Description 10/15/2020 1:00 PM EDT Procedure [place] [address] Samy Mckeon MD [facility] [place] [address] Bilateral leg paresthesia; Muscle pain Social History [...] well as recent note from neurology at [facility]. Radha first noted pain in her lower [...] today. She ended up having evaluation in [place]. She had several lab tests per the [facility] neurology notes. This included unremarkable CBC, CMP, TSH, magnesium, CK, CCP, celiac antibodies, Lyme panel, SHIKHA, rheumatoid factor, ESR, CRP. 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 She also had lumbar spine MRI at [facility] and it was unrevealing for an [...] toes downgoing to plantar stimulation. Coordination normal wfrwoz-kvsu-cplazh and rhqj-jskw-ounu testing. Gait slow but no ataxia. Antalgic [...] set her up for that here at [facility] although we also discussed that even if positive it would otherwise not change booth attendant likely. If it was positive further B [...] she like to have that done at [facility] in [facility] we could arrange that for her. I [...] this office visit is 45 minutes including cear-bh-ensz time, chart review, and documentation. Time was exclusive of the time for EMG nerve conduction studies. This note was created with voice recognition software. documented in this encounter Plan of Treatment Not on file documented as of this encounter Visit Diagnoses Diagnosis Bilateral leg paresthesia Disturbance of skin sensation Muscle pain Mylagia and myositis, unspecified documented in this encounter Care Teams Wooden Frame Builder Relationship Specialty Start Date End Date Tim Kim MD [address] [place] [address] PCP - General 05/28/10 documented as of this encounter
--- OUTSIDE RECORDS SUMMARY | 2024-02-07 04:00 | XMS_ITS | Encounter Summary ---
Author Organization [facility] Address [address] [place] [address] Care Team Providers Care Vp Hr Diversity Name Role Phone Unknown, Provider Primary Care Provider [phone] Tim Kim MD Primary Care Provider [phone] Encounter Details Date Type Department Care Team (Late st Contact Info) Description 04/10/2021 Lab Requisition [facility] Pathology & Laboratory Medicine - [address] [address] Outr Resulting Lab, Provider Social History Tobacco [...] Info) Description 04/28/2024 14:45 EDT Office Visit [facility] Rheumatology [address] [place] [address] Alan Mann MBBS 111 [facility], [facility] 5 [place] [phone] documented as of this encounter Procedures Procedure Name Priority Date/Time Associated Diagnosis Comments RUBELLA IGG ANTIBODY Routine 04/10/2021 8:58 EDT VARICELLA IGG ANTIBODY Routine 04/10/2021 8:58 EDT documented in this encounter Results * VARICELLA IGG ANTIBODY (04/10/2021 8:58 EDT) Varicella IgG Ab Positive See Note 04/11/2021 10:06 EDT [facility] Comment:Presence of detectab le Varicella Zoster virus IgG antibodies. Blood VENOUS BLOOD / Unknown 04/10/2021 8:58 EDT 04/10/2021 16:24 EDT Provider Outr Resulting Lab IMMUNOLOGY A ND SEROLOGY ORDERABLES Performing Organization Address [facility] Co de Phone Number [facility] [address] [place] [address] * RUBELLA IGG ANTIBODY (04/10/2021 8:58 EDT) Rubella IgG Ab Negative See Note 04/11/2021 10:11 EDT [facility] Comment:Sample is considered negative for [...] GAS ORDERABLES Performing Organization Address [facility] Co de Phone Number [facility] [address] [place] [address] documented in this encounter Visit Diagnoses Not on filedocumented in this encounter Care Teams Vp Hr Diversity Relationship Specialty Start Date End Date Unknown, Provider, PCP - General 04/13/13 09/02/21 Tim Kim MD [address] [place] [address] PCP - General 09/03/21 documented as of this encounter
--- OUTSIDE RECORDS SUMMARY | 2024-02-07 04:00 | XMS_ITS | Encounter Summary ---
Author Organization [facility] Address [address] [place] [address] Care Team Providers Care Research Nurse Name Role Phone Unknown, Provider Primary Care Provider [phone] Tim Kim MD Primary Care Provider Encounter Details Date Type Department Care Team (Late st Contact Info) Description 07/20/2020 Lab Requisition [facility] Pathology & Laboratory Medicine - [address] [address] Outr Resulting Lab, Provider Social History Tobacco [...] Office Visit [facility] Rheumatology [address] [place] [address] Alan Mann MBBS 111 [facility], [facility] 5 [place] [address] documented as of this encounter Procedures Procedure Name Priority Date/Time Associated Diagnosis Comments SPEP, INCLUDES QUANTITATION OF MONOCLONAL SPIKE Routine 07/20/2020 10:45 EST documented in this encounter Results * SPEP, INCLUDES QUANTITATION OF MONOCLONAL SPIKE (07/20/2020 10:45 EST) Total Protein 7.3 6.3 - 8.2 g/dL 07/23/2020 12:38 [facility] Albumin % 61.2 55.8 - 66.1 % 07/23/2020 12:38 [facility] Alpha-1 % 4.3 2.9 - 4.9 % 07/23/2020 12:38 [facility] Alpha-2 % 10.1 7.1 - 11.8 % 07/23/2020 12:38 [facility] Beta % 9.9 8.4 - 13.1 % 07/23/2020 12:38 [facility] Gamma % 14.5 11.1 - 18.8 % 07/23/2020 12:38 [facility] SPEP Comment No apparent monoclonal protein seen on serum electrophoresis 07/23/2020 12:38 [facility] Comment:See scanned/suppleme ntary report. Blood VENOUS BLOOD / Unknown 07/20/2020 10:45 EST 07/20/2020 21:02 EST Provider Outr Resulting Lab CHEMISTRY & BLOOD GAS ORDERABLES [facility] [address] [place] [address] documented in this encounter Visit Diagnoses Not on filedocumented in this encounter Care Teams Research Nurse Relationship Specialty Start Date End Date Unknown, MD Lianna PCP - General 04/13/13 09/02/21 Tim Kim MD [address] [place] [address] PCP - General 09/03/21 documented as of this encounter
--- OUTSIDE RECORDS SUMMARY | 2024-02-07 04:00 | XMS_ITS | Encounter Summary ---
Author Organization [facility] Address [address] [place] [address] Care Team Providers Care Remote Sensing Specialist Name Role Phone Unknown, Provider Primary Care Provider [phone] Tim Kim MD Primary Care Provider [phone] Encounter Details Date Type Department Care Team (Late st Contact Info) Description 02/07/2020 Lab Requisition [facility] Pathology & Laboratory Medicine - [address] [address] Outr Resulting Lab, Provider Social History Tobacco [...] Info) Description 04/28/2024 14:45 EDT Office Visit [facility] Rheumatology [address] [place] [address] Alan Mann MBBS 111 [facility], [facility] 5 [place] [phone] documented as of this encounter Procedures Procedure [...] MICROBIOLOGY - GENERAL ORDERABLES Performing Organization Address City/[facility]/ZIP Co de Phone Number [facility] [address] [place] [address] * COVID-19 TESTING (02/07/2020 17:18 EDT) COVID-19 rt-PCR Result Negative Negative 02/08/2020 1:12 EDT [facility] Comment: This test has [...] history, and epidemiological information. Performed on the Docalyticsher Fusion instrument Performing Lab [place] [facility] 02/08/2020 1:12 EDT [facility] Swab 02/07/2020 17:1 8 EDT 02/07/2020 21:23 EDT Provider Outr Resulting Lab MICROBIOLOGY - GENERAL ORDERABLES Performing Organization Address City/[facility]/ZIP Co de Phone Number [facility] [address] [place] [address] documented in this encounter Visit Diagnoses Not on filedocumented in this encounter Care Teams Remote Sensing Specialist Relationship Specialty Start Date End Date Unknown, Provider, PCP - General 04/13/13 09/02/21 Tim Kim MD [address] [place] [address] PCP - General 09/03/21 documented as of this encounter
--- OUTSIDE RECORDS SUMMARY | 2024-02-07 04:00 | XMS_ITS | Encounter Summary ---
Author Organization [facility] Address [address] [place] [address] Care Team Providers Care Assistant Clinical Nurse Manager Name Role Phone Unknown, Provider Primary Care Provider [phone] Encounter Details Date Type Department Care Team (Late st Contact Info) Description 04/13/2013 Results Only [facility] Services - [facility] ([facility] [address] [place] [address] Unknown, Provider, Social History Tobacco Use Types Packs/Day Years Used Date Smoking Tobacco: Never Assessed Sex and Gender Information Value Date Recorded Sex Assigned at Not on file Gender Identity Not on file Sexual Orientation Not on file documented as of this encounter Plan of Treatment Upcoming Encounters Date Type Department Care Team (Late st Contact Info) Description 04/28/2024 14:45 EDT Office Visit [facility] Rheumatology [address] [place] [address] Alan Mann MBBS 111 [facility], [facility] 5 [place] [phone] documented as of this encounter Procedures Procedure Name Priority Date/Time Associated Diagnosis Comments SCREEN TEST Routine 04/13/2013 16: 03 EDT documented in this encounter Results * SCREEN TEST (04/13/2013 16:03 EDT) Screen Test NEGATIVE [facility] 04/13/2013 16:0 3 EDT Provider Unknown BLOOD BANK TESTS [facility] [address] [place] [address] documented in this encounter Visit Diagnoses Not on filedocumented in this encounter Care Teams Assistant Clinical Nurse Manager Relationship Specialty Start Date End Date Unknown, Provider, PCP - General 04/13/13 09/02/21 documented as of this encounter
--- OUTSIDE RECORDS SUMMARY | 2024-02-07 04:00 | XMS_ITS | Encounter Summary ---
Author Organization [facility] Address [address] [place] [address] Care Team Providers Care Hypo Dipper Name Role Phone Tim Kim MD Primary Care Provider [phone] Encounter Details Date Type Department Care Team (Late st Contact Info) Description 10/21/2021 Lab Requisition [facility] Pathology & Laboratory Medicine - [address] [address] Jerica Hernandez [address] [place] [address] [place] [address] Encounter for other general examination [...] Info) Description 04/28/2024 14:45 EDT Office Visit [facility] Rheumatology [address] [place] [address] Alan Mann MBBS 111 [facility], [facility] 5 [place] [phone] documented as of this encounter Procedures Procedure [...] response (MIGUELITO): Stage (location): Stage 0 - Pre-MERCEDZE: Neutrophils in the subchorial intervillous space of [...] smooth muscle. Sandoval MATHIAS, Edith Dasilva (2020). Banks of Placental Pathology. AFIP Atlases of Tumor and non-Tumor Pathology (Series 5). [employer]; [place], [place]. Adapted from Nestor RW, Shubham O, [place] [...] and has a partly gelatinous cut surface. Oil Field Rig Builder sections are submitted as follows: BLOCK RANGEL [...] LIZ ASHLEY(ASCP) 10/22/2021 14:27 10/30/2021 16:27 EDT [facility] Performing Lab [facility] 16:27 EDT [facility] Scanned Images 10/30/2021 16:27 EDT [facility] Tissue PLACENTAL STRUCTURE / Unknown 10/20/2021 21:46 EDT 10/21/2021 17:21 EDT Jerica Hernandez PATHOLOGY ORDERABLES [facility] [address] [place] [address] documented in this encounter Visit Diagnoses Diagnosis Encounter for other general examination documented in this encounter Care Teams Hypo Dipper Relationship Specialty Start Date End Date Tim Kim MD [address] [place] [address] PCP - General 09/03/21 documented as of this encounter
--- OUTSIDE RECORDS SUMMARY | 2024-02-07 04:00 | XMS_ITS | Clinical Summary ---
Author Organization [facility] [place] [address] Care Team Providers Care Oracle Data Warehouse Developer Name Role Phone Tim Kim MD Primary Care Provider Allergies Active Allergy Reactions Criticality Noted Date Comments Amphetamine 08/21/2020 Codeine Hives Medium 08/21/2020 Dextroamphetamine 08/21/2020 Ibuprofen Anaphylaxis High 08/21/2020 CIS - Rash Methylphenidate Low 08/21/2020 Paroxetine High 08/21/2020 Penicillin G Medium 08/21/2020 Other Reaction(s): RASH,HIVES Penicillins CIS - Rash Medications Medication Sig [...] route Continuous (Device). Expected removal date Active Encounters Date Type Department Care Team Description 02/05/2024 11:00 AM EDT [place] [address] Daniel Figueroa MD Pain of left eye; Blurry vision, left eye 02/05/2024 Travel from Last 3 Months Social History Tobacco [...] test 2022 PAP Smear 2022 Covid-19 Vaccine (1 - 2022-24 season) 2023 Influenza (Flu) vaccine (1 o f 1 - Influenza standard series) 03/06/2024 Procedures Procedure Name Priority Date/Time Associated Diagnosis Comments FUNDUS PHOTOS - OU- BOTH EYES Routine 02/05/2024 1:17 PM EDT Pain of left eye OCT RETINA - OU - BOTH EYES Routine 02/05/2024 1:16 PM EDT Pain of left eye from Last 3 Months Results * Fundus Photos - OU - [...] normal observations. Periphery findings include normal observations. aDniel Figueroa MD OPHTHALMOLOGY SERVIC ES ORDERABLES * OCT Retina - OU - Both Eyes (02/05/2024 1:16 PM EDT) Anatomical Region Laterality Modality Other Narrative 02/05/2024 5:05 PM EDT Right Eye Quality was good. Scan locations included subfoveal. Findings include normal observations. Left Eye Quality was good. Scan locations included subfoveal. Findings include normal observations. Daniel Figueroa MD OPHTHALMOLOGY SERVIC ES ORDERABLES from Last 3 Months Care Teams Oracle Data Warehouse Developer Relationship Specialty Start Date End Date Tim Kim MD [address] [place] [address] PCP - General 05/28/10
--- OUTSIDE RECORDS SUMMARY | 2024-02-07 04:00 | XMS_ITS | Encounter Summary ---
Author Organization [facility] Address [address] [place] [address] Care Team Providers Care Boring Machine Operator Vertical Name Role Phone Unknown, Provider Primary Care Provider [phone] Tim Kim MD Primary Care Provider Encounter Details Date Type Department Care Team (Late st Contact Info) Description 06/15/2020 Lab Requisition [facility] Pathology & Laboratory Medicine - [address] [address] Outr Resulting Lab, Provider Social History Tobacco [...] 04/28/2024 14:45 EDT Office Visit [facility] Rheumatology [address] [place] [address] Alan Mann MBBS 111 [facility], [facility] 5 [place] [phone] documented as of this encounter Procedures Procedure Name Priority Date/Time Associated Diagnosis Comments DO NOT ORDER STANDALONE - BROAD COVID TEST Today 06/14/2020 11:30 EST COVID-19 TESTING Routine 06/14/2020 11:3 0 EST documented in this encounter Results * DO NOT ORDER STANDALONE - BROAD COVID TEST (06/14/2020 11:30 EST) [facility] COVID-19 rt-PCR Result NEGATIVE Negative 06/17/2020 14:27 EST [facility] Comment: 2019-novel Coronavirus (2019-nCoV) not [...] in accordance with CLIA regulations, College of [employer]ologists (CAP) guidelines (Sep 22, 2019), and FDA guidance (Sep 03, 2019). This test is only for use under the Food and Drug Administration's Emergency Use Authorization. Swab ENTIRE NASOPHARYNX / Unknown 06/14/2020 11:30 EST 06/15/2020 15:53 EST Provider Outr Resulting Lab MICROBIOLOGY - GENERAL ORDERABLES [facility] [place], [place] * COVID-19 TESTING (06/14/2020 11:30 EST) COVID-19 rt-PCR Result NEGATIVE Negative 06/17/2020 16:45 EST [facility] Comment: 2019-novel Coronavirus (2019-nCoV) not [...] in accordance with CLIA regulations, College of [employer] Pathologists (CAP) guidelines (Sep 22, 2019), and FDA guidance (Sep 03, 2019). This test is only for use under the Food and Drug Administration's Emergency Use Authorization. Performing Lab [facility] 06/17/2020 16:[address] [facility] Swab 06/14/2020 11:3 0 EST 06/15/2020 15:53 EST Provider Outr Resulting Lab MICROBIOLOGY - GENERAL ORDERABLES [facility] [address] [place] [address] [facility] [place] documented in this encounter Visit Diagnoses Not on filedocumented in this encounter Care Teams Boring Machine Operator Vertical Relationship Specialty Start Date End Date Unknown, Provider, PCP - General 04/13/13 09/02/21 Tim Kim MD [address] [place] [address] PCP - General 09/03/21 documented as of this encounter
--- OUTSIDE RECORDS SUMMARY | 2024-02-07 04:00 | XMS_ITS | Encounter Summary ---
Author Organization [facility] Address [address] [place] [address] Care Team Providers Care Excel Expert Name Role Phone Unknown, Provider Primary Care Provider [phone] Tim Kim MD Primary Care Provider Encounter Details Date Type Department Care Team (Late st Contact Info) Description 04/10/2021 Lab Requisition [facility] Pathology & Laboratory Medicine - [address] [address] Outr Resulting Lab, Provider Social History Tobacco [...] Description 04/28/2024 14:[address] [facility] Rhe[facility]ology [address] [place] [address] Alan Mann MBBS 111 [facility], [facility] [address] [place] [phone] documented as of this encounter Procedures Procedure Name Priority Date/Time Associated Diagnosis Comments HIV 1/2 ANTIGEN AND ANTIBODY, 4TH GENERATION Routine 04/10/2021 8:58 EDT documented in this encounter Results * HIV 1/2 ANTIGEN AND ANTIBODY, 4TH GENERATION (04/10/2021 8:58 EDT) HIV 1 and 2 Antibody/p24 Antigen, 4th Generation Negative Negative 04/11/2021 10:18 EDT [facility] Comment: If acute HIV-1 infection is suspected in a high risk ??patient, submit plasma specimen for HIV-1 RNA quantitation test. Fourth Generation assay performed on the Siemens Sabreaur. Blood VENOUS BLOOD / Unknown 04/10/2021 8:58 EDT 04/10/2021 16:24 EDT Provider Outr Resulting Lab IMMUNOLOGY A ND SEROLOGY ORDERABLES [facility] [address] [place] [address] documented in this encounter Visit Diagnoses Not on filedocumented in this encounter Care Teams Excel Expert Relationship Specialty Start Date End Date Unknown, Provider, PCP - General 04/13/13 09/02/21 Tim Kim MD [address] [place] [address] PCP - General 09/03/21 documented as of this encounter
--- OUTSIDE RECORDS SUMMARY | 2024-02-07 04:00 | XMS_ITS | Encounter Summary ---
Author Organization [facility] Address [address] [place] [address] Care Team Providers Care Behaviorist Name Role Phone Tim Kim MD Primary Care Provider [phone] Encounter Details Date Type Department Care Team (Late st Contact Info) Description 10/21/2021 Lab Requisition [facility] Pathology & Laboratory Medicine [address] [address] Leilani Hampton, PROPERTY LOSS INSURANCE CLAIM ADJUSTER [address] [place] [phone] Encounter for other general examination Social History [...] Info) Description 04/28/2024 14:45 EDT Office Visit [facility] Rheumatology [address] [place] [address] Alan Mann MBBS 111 [facility], [facility] 5 [place] [phone] documented as of this encounter Procedures Procedure Name Priority Date/Time Associated Diagnosis Comments SCREEN TEST Today 10/21/2021 6:30 EDT Encounter for other general examination documented in this encounter Results * SCREEN TEST (10/21/2021 6:30 EDT) Screen Test NEGATIVE 022 17:54 EDT [facility] Comment:CALLED RESULTS ARUN AT [facility] 10/21/21 @ 17:50. FAXED TO LAB @ [phone] Blood VENOUS BLOOD / Unknown 10/21/2021 6:30 EDT 10/21/2021 17:14 EDT Leilani Hampton [facility]N BLOOD BANK TESTS Performing Organization Address City/State/[facility] Co de Phone Number [facility] [address] [place] [address] documented in this encounter Visit Diagnoses Diagnosis Encounter for other general examination documented in this encounter Care Teams Behaviorist Relationship Specialty Start Date End Date Tim Kim MD [address] [place] [address] PCP - General 09/03/21 documented as of this encounter
--- OUTSIDE RECORDS SUMMARY | 2024-02-07 04:00 | XMS_ITS | Encounter Summary ---
Author Organization [facility] Address [address] [place] [address] Care Team Providers Care General Operator Name Role Phone Unknown, Provider Primary Care Provider [phone] Tim Kim MD Primary Care Provider [phone] Encounter Details Date Type Department Care Team (Late st Contact Info) Description 04/10/2021 Lab Requisition [facility] Pathology & Laboratory Medicine - [address] [address] Outr Resulting Lab, Provider Social History Tobacco [...] 14:45 EDT Office Visit [facility] [place] [address] [place] [address] Alan Mann MBBS 111 [facility], [facility] 5 [place] [phone] documented as of this encounter Procedures Procedure Name Priority Date/Time Associated Diagnosis Comments HEPATITIS C AB W REFLEX TO HCV RNA BY PCR Routine 04/10/2021 8:58 EDT HEPATITIS B SURFACE ANTIGEN Routine 04/10/2021 8:58 EDT documented in this encounter Results * HEPATITIS B SURFACE ANTIGEN (04/10/2021 8:58 EDT) Hep B Surface Ag Negative Negative 04/11/2021 9:26 EDT [facility] Blood VENOUS BLOOD / Unknown 04/10/2021 8:58 EDT 04/10/2021 16:25 EDT Provider Outr Resulting Lab CHEMISTRY & BLOOD GAS ORDERABLES Performing Organization Address City/[facility]/ZIP Co de Phone Number [facility] [address] [place] [address] * HEPATITIS C AB W REFLEX TO HCV RNA BY PCR (04/10/2021 8:58 EDT) Hep C Antibody Negative Negative 04/11/2021 10:07 EDT [facility] Blood VENOUS BLOOD / Unknown 04/10/2021 8:58 EDT 04/10/2021 16:25 EDT Provider Outr Resulting Lab CHEMISTRY & BLOOD GAS ORDERABLES Performing Organization Address [facility] de Phone Number [facility] [address] [place] [address] documented in this encounter Visit Diagnoses Not on filedocumented in this encounter Care Teams General Operator Relationship Specialty Start Date End Date Unknown, MD Lianna PCP - General 04/13/13 09/02/21 Tim Kim MD [address] [place] [address] PCP - General 09/03/21 documented as of this encounter
--- OUTSIDE RECORDS SUMMARY | 2024-02-07 04:00 | XMS_ITS | Encounter Summary ---
Author Organization [facility] Address [address] [place] [address] Care Team Providers Care Deck And Hull Assembler Name Role Phone Tim Kim MD Primary Care Provider [phone] Encounter Details Date Type Department Care Team (Late st Contact Info) Description 11/04/2023 Lab Requisition [facility] Pathology & Laboratory Medicine - [address] [address] Outr Resulting Lab, Provider Social History Tobacco [...] Office Visit [facility] Rheumatology [address] [place] [address] Alan Mann MBBS [address] [place] [address], [facility] 5 [place] [phone] documented as of this encounter Procedures Procedure Name Priority Date/Time Associated Diagnosis Comments SSA/SSB PANEL Routine 11/04/2023 11:40 EDT RHEUMATOID FACTOR Routine 11/04/2023 11: 40 EDT ANTI NUCLEAR AB (SHIKHA), IFA Routine 11/04/2023 11:40 EDT documented in this encounter Results * RHEUMATOID FACTOR (11/04/2023 11:40 EDT) Rheumatoid Factor 10.5 <12.0 IU/mL 11/05/2023 0:15 EDT [facility] Blood VENOUS BLOOD / Unknown 11/04/2023 11:40 EDT 11/04/2023 21:29 EDT Provider Outr Resulting Lab CHEMISTRY & BLOOD GAS ORDERABLES Performing Organization Address [facility] Co de Phone Number [facility] [address] [place] [address] * SSA/SSB PANEL (11/04/2023 11:40 EDT) Ro52 Anitbody, IgG <2.3 <20.0 CU 2023 16:56 EDT [facility] Comment:Results were obtaine d with the BioMCNA Flash Ro52 chemiluminescent immunoassay. Values obtained with different manufacturers' assay methods must not be used interchangeably. Ro60 Antibody, IgG <7.0 <20.0 CU 2023 16:56 EDT [facility] Comment:Results were obtaine d with the BioMCNA Flash Ro60 chemiluminescent immunoassay. Values obtained with different manufacturers' assay methods must not be used interchangeably. SSB Antibody, IgG <3.3 <20.0 CU 024 16:56 EDT [facility] Comment:Results were obtaine d with the BioMCNA Flash SS-B chemiluminescent immunoassay. Values obtained with different manufacturers' assay methods must not be used interchangeably. Blood VENOUS BLOOD / Unknown 11/04/2023 11:40 EDT 11/04/2023 21:29 EDT Provider Outr Resulting Lab IMMUNOLOGY A ND SEROLOGY ORDERABLES Performing Organization Address [facility]/ZIP Co de Phone Number [facility] [address] [place], [place] [id number] * ANTI NUCLEAR AB (SHIKHA), IFA (11/04/2023 11:40 EDT) SHIKHA Interpretation Negative Negative 2023 14:44 EDT [facility] Comment:No titer performed, SHIKHA Screen is negative. Blood VENOUS BLOOD / Unknown 11/04/2023 11:40 EDT 11/04/2023 21:29 EDT Narrative [facility] - 11/05/2023 14:44 EDT Results were obtained with the INOVA NOVA Lite HEp-2 SHIKHA Kit by indirect immunofluorescence. Provider Outr Resulting Lab IMMUNOLOGY A ND SEROLOGY ORDERABLES [facility] [address] [place] [address] documented in this encounter Visit Diagnoses Not on filedocumented in this encounter Care Teams Deck And Hull Assembler Relationship Specialty Start Date End Date Tim Kim MD [address] [place], [place] [id number] PCP - General 09/03/21 documented as of this encounter
--- OUTSIDE RECORDS SUMMARY | 2024-02-07 04:00 | XMS_ITS | Encounter Summary ---
[place] [address] Care Team Providers Care Cloth Measurer Name Role Phone Tim Kim MD Primary Care Provider Encounter Details Date Type Department Care Team (Latest Contact Info) Description 02/05/2024 Travel Social History Tobacco Use Types Packs/Day Years Used Date Smoking Tobacco: Never Assessed Sex and Gender Information Value Date Recorded Sex Assigned at Not on file Gender Identity Not on file Sexual Orientation Not on file documented as of this encounter Plan of Treatment Not on file documented as of this encounter Visit Diagnoses Not on filedocumented in this encounter Care Teams Cloth Measurer Relationship Specialty Start Date End Date Tim Kim MD [address] [place] [address] PCP - General 05/28/10 documented as of this encounter
[2024-02-07] MEDS: Prochlorperazine 10 MG/2 ML VIAL 5 MG IVP (04:19)
== END 2024-02-07 07:12 | disposition home or self-care (01) ==
PROVIDERS: Emergency Provider Emergency Medicine; PCP Nurse Practitioner Family
DX: B02.30 Zoster ocular disease, unspecified (principal); F17.290 Nicotine dependence, other tobacco product, uncomplicated
CPT/HCPCS: 96374; 96375; 96376; 99284; J0780; J2270

== ENCOUNTER 2024-04-18 07:40 | Emergency (ER) | payer MEDICAID, SELFPAY ==
[2024-04-18 07:42] VITALS: BP 104/69; PULSE 61; RESP 14; TEMP 36.6; O2SAT 97
--- NOTE | 2024-04-18 07:45 | DI.RAD_ITS ---
Exam(s) XR HAND RT COMPLETE EXAM: XR HAND RT COMPLETE CLINICAL HISTORY: hand pain. TECHNIQUE: 2D digital imaging was performed of the right hand. Three images were obtained. AP, late ral and oblique views were obtained. COMPARISON: CR RIGHT HAND COMPLETE from 09/07/2014 CR RIGHT WRIST COMPLETE from 09/07/2014 FINDINGS: BONES: No acute fracture is present. No bony destructive lesion is seen. JOINTS: No dislocation present. SOFT TISSUE: Normal. IMPRESSION: Unremarkable radiographs of the right hand. DATA REPOSITORY: RADIATION DOSE DELIVERED:
--- OUTSIDE RECORDS SUMMARY | 2024-04-18 07:48 | XMS_ITS | Encounter Summary ---
Author Organization [facility] Address [address] [place] [address] Care Team Providers Care Terrazzo Worker Apprentice Name Role Phone Unknown, Provider Primary Care Provider [phone] Tim Kim MD Primary Care Provider [phone] Encounter Details Date Type Department Care Team (Late st Contact Info) Description 04/05/2021 Lab Requisition [facility] Pathology & Laboratory Medicine - [address] [address] Outr Resulting Lab, Provider Social History Tobacco [...] Info) Description 04/28/2024 14:45 EDT Office Visit [facility] Rheumatology [address] [place] [address] Alan Mann MBBS 111 [facility] 5 [place] [phone] documented as of this encounter Procedures Procedure Name Priority Date/Time Associated Diagnosis Comments CHLAMYDIA/N. GONORRHOEAE AMPLIFIED NUCLEIC ACID Routine 04/04/2021 14:15 EDT documented in this encounter Results * CHLAMYDIA/N. GONORRHOEAE AMPLIFIED RNA (04/04/2021 14:15 EDT) Neisseria gonorrhoeae Result Negative Negative 04/08/2021 16:07 EDT [facility] Chlamydia trachomatis Result Negative Negative 04/08/2021 16:07 EDT [facility] Swab ENTIRE WALL OF CERVIX / Unknown 04/04/2021 14:15 EDT 04/05/2021 18:45 EDT Provider Outr Resulting Lab MICROBIOLOGY - GENERAL ORDERABLES [facility] [address] [place] [address] documented in this encounter Visit Diagnoses Not on filedocumented in this encounter Care Teams Terrazzo Worker Apprentice Relationship Specialty Start Date End Date Unknown, Provider, PCP - General 04/13/13 09/02/21 Tmi Kim MD [address] [place] [address] PCP - General 09/03/21 documented as of this encounter
--- OUTSIDE RECORDS SUMMARY | 2024-04-18 07:48 | XMS_ITS | Encounter Summary ---
Author Organization [facility] Address [address] [place] [address] Care Team Providers Care Team Guide Name Role Phone Unknown, Provider Primary Care Provider [phone] Tim Kim MD Primary Care Provider [phone] Encounter Details Date Type Department Care Team (Late st Contact Info) Description 04/10/2021 Lab Requisition [facility] Pathology & Laboratory Medicine - [address] [address] Outr Resulting Lab, Provider Social History Tobacco [...] Info) Description 04/28/2024 14:45 EDT Office Visit [facility] Rheumatology [address] [place] [address] Alan Mann MBBS 111 [facility], [facility] [address] [place] [phone] documented as of this encounter Procedures Procedure Name Priority Date/Time Associated Diagnosis Comments HIV 1/2 ANTIGEN AND ANTIBODY, 4TH GENERATION Routine 04/10/2021 8:58 EDT documented in this encounter Results * HIV 1/2 ANTIGEN AND ANTIBODY, 4TH GENERATION (04/10/2021 8:58 EDT) HIV 1 and 2 Antibody/p24 Antigen, 4th Generation Negative Negative 04/11/2021 10:18 EDT [facility] Comment: If acute HIV-1 infection is suspected in a high risk ??patient, submit plasma specimen for HIV-1 RNA quantitation test. Fourth Generation assay performed on the Siemens Centaur. Blood VENOUS BLOOD / Unknown 04/10/2021 8:58 EDT 04/10/2021 16:24 EDT Provider Outr Resulting Lab IMMUNOLOGY A ND SEROLOGY ORDERABLES [facility] [address] [place] [address] documented in this encounter Visit Diagnoses Not on filedocumented in this encounter Care Teams Team Guide Relationship Specialty Start Date End Date Unknown, Provider, PCP - General 04/13/13 09/02/21 Tim Kim MD [address] [place] [address] PCP - General 09/03/21 documented as of this encounter
--- OUTSIDE RECORDS SUMMARY | 2024-04-18 07:48 | XMS_ITS | Encounter Summary ---
Author Organization [facility] Address [address] [place] [address] Care Team Providers Care Breakfast Server Name Role Phone Unknown, Provider Primary Care Provider [phone] Tim Kim MD Primary Care Provider [phone] Encounter Details Date Type Department Care Team (Late st Contact Info) Description 02/07/2020 Lab Requisition [facility] Pathology & Laboratory Medicine - [address] [address] Outr Resulting Lab, Provider Social History Tobacco [...] Description 04/28/2024 14:45 EDT Office Visit [facility] Rheumatology [address] [place] [address] Alan Mann MBBS 111 [facility] 5 [place] [phone] documented as of this encounter Procedures Procedure [...] MICROBIOLOGY - GENERAL ORDERABLES Performing Organization Address City/[facility] Co de Phone Number [facility] [address] [place] [address] * COVID-19 TESTING (02/07/2020 17:18 EDT) COVID-19 rt-PCR Result Negative Negative 02/08/2020 1:12 EDT [facility] Comment: This test [...] history, and epidemiological information. Performed on the Artificial Solutionsher Fusion instrument Performing Lab [facility] Lab 02/08/2020 1:12 EDT [facility] Swab 02/07/2020 17:1 8 EDT 02/07/2020 21:23 EDT Provider Outr Resulting Lab MICROBIOLOGY - GENERAL ORDERABLES Performing Organization Address City/[facility]/ZIP Co de Phone Number [facility] [address] [place] [address] documented in this encounter Visit Diagnoses Not on filedocumented in this encounter Care Teams Breakfast Server Relationship Specialty Start Date End Date Unknown, Provider, PCP - General 04/13/13 09/02/21 Tim Kim MD [address] [place] [address] PCP - General 09/03/21 documented as of this encounter
--- OUTSIDE RECORDS SUMMARY | 2024-04-18 07:48 | XMS_ITS | Encounter Summary ---
Author Organization [facility] Address [address] [place] [address] Care Team Providers Care Network Infrastructure Architect Name Role Phone Tim Kim MD Primary Care Provider [phone] Encounter Details Date Type Department Care Team (Late st Contact Info) Description 11/04/2023 Lab Requisition [facility] Pathology & Laboratory Medicine - [address] [address] Outr Resulting Lab, Provider Social History Tobacco [...] 14:45 EDT Office Visit [facility] Rheumatology [address] [place] [address] Alan Mann MBBS [address] [facility] 5 [place] [phone] documented as of this encounter Procedures Procedure Name Priority Date/Time Associated Diagnosis Comments SSA/SSB PANEL Routine 11/04/2023 11:40 EDT RHEUMATOID FACTOR Routine 11/04/2023 11: 40 EDT ANTI NUCLEAR AB (SHIKHA), IFA Routine 11/04/2023 11:40 EDT documented in this encounter Results * RHEUMATOID FACTOR (11/04/2023 11:40 EDT) Rheumatoid Factor 10.5 <12.0 IU/mL 11/05/2023 0:15 EDT [facility] Blood VENOUS BLOOD / Unknown 11/04/2023 11:40 EDT 11/04/2023 21:29 EDT Provider Outr Resulting Lab CHEMISTRY & BLOOD GAS ORDERABLES Performing Organization Address [facility] Co de Phone Number [facility] [address] [place] [address] * SSA/SSB PANEL (11/04/2023 11:40 EDT) Ro52 Anitbody, IgG <2.3 <20.0 CU 2023 16:56 EDT [facility] Comment:Results were obtaine d with the VidyoA Flash Ro52 chemiluminescent immunoassay. Values obtained with different manufacturers' assay methods must not be used interchangeably. Ro60 Antibody, IgG <7.0 <20.0 CU 2023 16:56 EDT [facility] Comment:Results were obtaine d with the VidyoA Flash Ro60 chemiluminescent immunoassay. Values obtained with different manufacturers' assay methods must not be used interchangeably. SSB Antibody, IgG <3.3 <20.0 CU 024 16:56 EDT [facility] Comment:Results were obtaine d with the VidyoA Flash SS-B chemiluminescent immunoassay. Values obtained with different manufacturers' assay methods must not be used interchangeably. Blood VENOUS BLOOD / Unknown 11/04/2023 11:40 EDT 11/04/2023 21:29 EDT Provider Outr Resulting Lab IMMUNOLOGY A ND SEROLOGY ORDERABLES Performing Organization Address [facility] Co de Phone Number [facility] [address] [place] [address] * ANTI NUCLEAR AB (SHIKHA), IFA (11/04/2023 11:40 EDT) SHIKHA Interpretation Negative Negative 2023 14:44 EDT [facility] Comment:No titer performed, SHIKHA Screen is negative. Blood VENOUS BLOOD / Unknown 11/04/2023 11:40 EDT 11/04/2023 21:29 EDT Narrative [facility] - 11/05/2023 14:44 EDT Results were obtained with the INOVA NOVA Lite HEp-2 SHIKHA Kit by indirect immunofluorescence. Provider Outr Resulting Lab IMMUNOLOGY A ND SEROLOGY ORDERABLES [facility] [address] [place] [address] documented in this encounter Visit Diagnoses Not on filedocumented in this encounter Care Teams Network Infrastructure Architect Relationship Specialty Start Date End Date Tim Kim MD [address] [place], [place] [phone] PCP - General 09/03/21 documented as of this encounter
--- OUTSIDE RECORDS SUMMARY | 2024-04-18 07:48 | XMS_ITS | Encounter Summary ---
Author Organization [facility] Address [address] [place] [address] Care Team Providers Care Industrial Recruiter Name Role Phone Tim Kim MD Primary Care Provider [phone] Encounter Details Date Type Department Care Team (Late st Contact Info) Description 10/21/2021 Lab Requisition [facility] Pathology & Laboratory Medicine - [address] [address] Leilani Hampton, WIRE PREPARATION WORKER [address] [place] [phone] Encounter for other general examination Social History [...] Office Visit [facility] Rheumatology [address] [place] [address] Alan Mann MBBS 111 [facility], [facility] 5 [place] [phone] documented as of this encounter Procedures Procedure Name Priority Date/Time Associated Diagnosis Comments SCREEN TEST Today 10/21/2021 6:30 EDT Encounter for other general examination documented in this encounter Results * SCREEN TEST (10/21/2021 6:30 EDT) Screen Test NEGATIVE 022 17:54 EDT [facility] Comment:CALLED RESULTS [facility] AT [facility] 10/21/21 @ 17:50. FAXED TO LAB @ [phone] Blood VENOUS BLOOD / Unknown 10/21/2021 6:30 EDT 10/21/2021 17:14 EDT Leilani Hampton APN BLOOD BANK TESTS [facility] [address] [facility] [place] [address] documented in this encounter Visit Diagnoses Diagnosis Encounter for other general examination documented in this encounter Care Teams Industrial Recruiter Relationship Specialty Start Date End Date Tim Kim MD [address] [place] [address] PCP - General 09/03/21 documented as of this encounter
--- OUTSIDE RECORDS SUMMARY | 2024-04-18 07:48 | XMS_ITS | Clinical Summary ---
Author Organization [facility] [place] [address] Care Team Providers Care Waitstaff Captain Name Role Phone Tim Kim MD Primary [...] 11:00 AM EDT Office [place] [phone] Daniel Figueroa MD Pain of left eye; [...] Hepatitis B vaccine (0-59 yrs) (1) 2011 Tetanus/Diphtheria/Pertussis Vaccines (1 - Tdap) 08/27 HPV test 2022 PAP Smear 2022 Covid-19 Vaccine (1 - 2022- season) 2024 Influenza (Flu) vaccine (1 o f 1 [...] ORDERABLES from Last 3 Months Care Teams Waitstaff Captain Relationship Specialty Start Date End Date Tim Kim MD [address] [place] [address] PCP - General 05/28/10
--- OUTSIDE RECORDS SUMMARY | 2024-04-18 07:48 | XMS_ITS | Encounter Summary ---
Author Organization [facility] Address [address] [place] [address] Care Team Providers Care Rotary Shear Worker Helper Name Role Phone Unknown, Provider Primary Care Provider [phone] Encounter Details Date Type Department Care Team (Late st Contact Info) Description 12/25/2016 Results Only [facility]- [facility] [phone] Damien Hilton, [facility]-[address] [phone] Social History Tobacco Use Types Packs/Day Years Used Date Smoking Tobacco: Never Assessed Sex and Gender Information Value Date Recorded Sex Assigned at Not on file Gender Identity Not on file Sexual Orientation Not on file documented as of this encounter Plan of Treatment Upcoming Encounters Date Type Department Care Team (Late st Contact Info) Description 04/28/2024 14:45 EDT Office Visit [facility] Rheumatology [address] [place] [address] Alan Mann MBBS 111 [place] [address] [place] [phone] documented as of this encounter Procedures Procedure [...] ? RADHA SCHMIDT ? Accession #: ? [id number] : ? 1990 (Age: 26) ??F ?Collect Date: ? 12/25/2016 Location: ? [facility] ? Receive Date: ? 12/29/2016 Provider: ?DAMIEN APODACA POTATO INSPECTOR-BC Copy to: ? Specimen/Source: ?Pap Test, Cervix, [...] HOSPITAL LABORATORY SERVICES 12/25/2016 12/29/2016 Damien Hilton POTATO INSPECTOR-BC PATHOLOGY [facility] [address] [place] [address] documented in this encounter Visit Diagnoses Not on filedocumented in this encounter Care Teams Rotary Shear Worker Helper Relationship Specialty Start Date End Date Unknown, Provider, PCP - General 04/13/13 09/02/21 documented as of this encounter
--- OUTSIDE RECORDS SUMMARY | 2024-04-18 07:48 | XMS_ITS | Encounter Summary ---
Author Organization [facility]amaria [facility] [address] Care Team Providers Care Oil Winterizer Name Role Phone Tim Kim MD Primary Care Provider Encounter Details Date Type Department Care Team (Late st Contact Info) Description 10/15/2020 External [place] [phone] Samy Mckeon MD [facility] [address] [place] [address] Social History Tobacco Use Types Packs/Day Years [...] on filedocumented in this encounter Care Teams Oil Winterizer Relationship Specialty Start Date End Date Tim Kim MD [address] [place] [address] PCP - General 05/28/10 documented as of this encounter
--- OUTSIDE RECORDS SUMMARY | 2024-04-18 07:48 | XMS_ITS | Encounter Summary ---
Author Organization [facility] Address [address] [place] [address] Care Team Providers Care Security Investigator Name Role Phone Unknown, Provider Primary Care Provider [phone] iTm Kim MD Primary Care Provider [phone] Encounter Details Date Type Department Care Team (Late st Contact Info) Description 04/10/2021 Lab Requisition [facility] Pathology & Laboratory Medicine - [address] [address] Outr Resulting Lab, Provider Social History Tobacco [...] EDT Office Visit [facility] Rheumatology [address] [place] [address] Alan Mann MBBS 111 [facility] 5 [place] [phone] documented as of this encounter Procedures Procedure Name Priority Date/Time Associated Diagnosis Comments RUBELLA IGG ANTIBODY Routine 04/10/2021 8:58 EDT VARICELLA IGG ANTIBODY Routine 04/10/2021 8:58 EDT documented in this encounter Results * VARICELLA IGG ANTIBODY (04/10/2021 8:58 EDT) Varicella IgG Ab Positive See Note 04/11/2021 10:06 EDT [facility] Comment:Presence of detectab le Varicella Zoster virus IgG antibodies. Blood VENOUS BLOOD / Unknown 04/10/2021 8:58 EDT 04/10/2021 16:24 EDT Provider Outr Resulting Lab IMMUNOLOGY A ND SEROLOGY ORDERABLES Performing Organization Address [facility] Co de Phone Number [facility] [address] [place] [address] * RUBELLA IGG ANTIBODY (04/10/2021 8:58 EDT) Rubella IgG Ab Negative See Note 04/11/2021 10:11 EDT [facility] Comment:Sample is considered [...] & BLOOD GAS ORDERABLES Performing Organization Address [facility] Co de Phone Number [facility] [address] [place] [address] documented in this encounter Visit Diagnoses Not on filedocumented in this encounter Care Teams Security Investigator Relationship Specialty Start Date End Date Unknown, Lianna, PCP - General 04/13/13 09/02/21 Tim Kim MD [address] [place] [address] PCP - General 09/03/21 documented as of this encounter
--- OUTSIDE RECORDS SUMMARY | 2024-04-18 07:48 | XMS_ITS | Encounter Summary ---
Author Organization [facility] Address [address] [place] [address] Care Team Providers Care Industry Segment Specialist Name Role Phone Unknown, Provider Primary Care Provider [phone] Tim Kim MD Primary Care Provider [phone] Encounter Details Date Type Department Care Team (Late st Contact Info) Description 07/20/2020 Lab Requisition [facility] Pathology & Laboratory Medicine - [address] [id number] Outr Resulting Lab, Provider Social History Tobacco [...] Office Visit [facility] Rheumatology [address] [place] [address] Alan Mann MBBS 111 [facility] 5 [place] [phone] documented as of this encounter Procedures Procedure Name Priority Date/Time Associated Diagnosis Comments SPEP, INCLUDES QUANTITATION OF MONOCLONAL SPIKE Routine 07/20/2020 10:45 EST documented in this encounter Results * SPEP, INCLUDES QUANTITATION OF MONOCLONAL SPIKE (07/20/2020 10:45 EST) Total Protein 7.3 6.3 - 8.2 g/dL 07/23/2020 12:38 [facility] Albumin % 61.2 55.8 - 66.1 % 07/23/2020 12:38 [facility] Alpha-1 % 4.3 2.9 - 4.9 % 07/23/2020 12:38 [facility] Alpha-2 % 10.1 7.1 - 11.8 % 07/23/2020 12:38 [facility] Beta % 9.9 8.4 - 13.1 % 07/23/2020 12:38 [facility] Gamma % 14.5 11.1 - 18.8 % 07/23/2020 12:38 [facility] SPEP Comment No apparent monoclonal protein seen on serum electrophoresis 07/23/2020 12:38 [facility] Comment:See scanned/suppleme ntary report. Blood VENOUS BLOOD / Unknown 07/20/2020 10:45 EST 07/20/2020 21:02 EST Provider Outr Resulting Lab CHEMISTRY & BLOOD GAS ORDERABLES Performing Organization Address City/State/[facility] Co de Phone Number [facility] [address] [place] [address] documented in this encounter Visit Diagnoses Not on filedocumented in this encounter Care Teams Industry Segment Specialist Relationship Specialty Start Date End Date Unknown, MD Lianna PCP - General 04/13/13 09/02/21 Tim Kim MD [address] [place] [address] PCP - General 09/03/21 documented as of this encounter
--- OUTSIDE RECORDS SUMMARY | 2024-04-18 07:48 | XMS_ITS | Encounter Summary ---
Author Organization [facility] [place] [address] Care Team Providers Care Space Physicist Name Role Phone Tim Kim MD Primary Care Provider [phone] Reason for Visit * Reason Comments Eye Problem Severe eye pain, p ressure, and bluriness OS. Encounter Details Date Type Department Care Team (Late st Contact Info) Description 02/05/2024 11:00 AM EDT Office Visit [facility] [place] [address] Daniel Figueroa MD [facility] [place] [address] Pain of left eye; Blurry vision, left [...] Kiran neurology, and Dr. Avis Koch at [facility]), complaining of episode of migraine starting 01/27/24. Presented to ED at [facility] where CT head, CTA brain and neck, MRI brain and orbits were all negative for optic neuritis or intracranial process. Seen by Dr. Kumar, PRABHJOT who felt it may be scleritis vs optic neuritis. Started on prednisolone drops without relief, advanced to solumedrol infusions (has received 2x with plans for one more tomorrow). Presented again to ED ([place]) last night after two episodes of syncope, felt to be vasovagal reaction secondary to pain. ED provider referred her to [facility], though did not make an e ffort [...] Eye care as well as ophthalmology at [facility] as needed. Dr. Kumar, OD notes that they have a 24hr call with an test grader and this would be more convenient for [...] -- Ady Mendez MD PGY-2 Ophthalmology Pager #[phone] I saw the patient with the following [...] disturbances documented in this encounter Care Teams Space Physicist Relationship Specialty Start Date End Date Tim Kim MD [address] [place] [address] PCP - General 05/28/10 documented as of this encounter
--- OUTSIDE RECORDS SUMMARY | 2024-04-18 07:48 | XMS_ITS | Encounter Summary ---
Author Organization [facility] Address [address] [place] [address] Care Team Providers Care Railroad Mechanic Name Role Phone Unknown, Provider Primary Care Provider [phone] Tim Kim MD Primary Care Provider [phone] Encounter Details Date Type Department Care Team (Late st Contact Info) Description 04/10/2021 Lab Requisition [facility] Pathology & Laboratory Medicine - [address] [address] Outr Resulting Lab, Provider Social History Tobacco [...] EDT Office Visit [facility] [place] [address] [place] [address] Alan Mann MBBS 111 [facility] 5 [place] [phone] documented as of this encounter Procedures Procedure Name Priority Date/Time Associated Diagnosis Comments HEPATITIS C AB W REFLEX TO HCV RNA BY PCR Routine 04/10/2021 8:58 EDT HEPATITIS B SURFACE ANTIGEN Routine 04/10/2021 8:58 EDT documented in this encounter Results * HEPATITIS B SURFACE ANTIGEN (04/10/2021 8:58 EDT) Hep B Surface Ag Negative Negative 04/11/2021 9:26 EDT [facility] Blood VENOUS BLOOD / Unknown 04/10/2021 8:58 EDT 04/10/2021 16:25 EDT Provider Outr Resulting Lab CHEMISTRY & BLOOD GAS ORDERABLES Performing Organization Address City/[facility]/ZIP Co de Phone Number [facility] [address] [place] [address] * HEPATITIS C AB W REFLEX TO HCV RNA BY PCR (04/10/2021 8:58 EDT) Hep C Antibody Negative Negative 04/11/2021 10:07 EDT [facility] Blood VENOUS BLOOD / Unknown 04/10/2021 8:58 EDT 04/10/2021 16:25 EDT Provider Outr Resulting Lab CHEMISTRY & BLOOD GAS ORDERABLES Performing Organization Address City/[facility] Co de Phone Number [facility] [address] [place] [address] documented in this encounter Visit Diagnoses Not on filedocumented in this encounter Care Teams Railroad Mechanic Relationship Specialty Start Date End Date Unknown, MD Lianna PCP - General 04/13/13 09/02/21 Tim Kim MD [address] [place] [address] PCP - General 09/03/21 documented as of this encounter
--- OUTSIDE RECORDS SUMMARY | 2024-04-18 07:48 | XMS_ITS | Encounter Summary ---
Author Organization [facility] Address [address] [place] [address] Care Team Providers Care Calcine Furnace Tender Name Role Phone Tim Kim MD Primary Care Provider [phone] Encounter Details Date Type Department Care Team (Late st Contact Info) Description 04/08/2024 Abstract [facility] Rheumatology [address] [place] [address] Alan Mann MBBS [address] [place] [phone] Social History Tobacco Use Types Packs/Day Years Used Date Smoking Tobacco: Former Cigarettes Tobacco Cessation:Counseling Given: Not Answered Sex and Gender Information Value Date Recorded Sex Assigned at Not on file Gender Identity Not on file Sexual Orientation Not on file documented as of this encounter Progress Notes * Rosemary Rice - 04/08/2024 0828 EDT Chart abstracted. documented in this encounter Plan of Treatment Upcoming Encounters Date Type Department Care Team (Late st Contact Info) Description 04/28/2024 14:45 EDT Office Visit [facility] Rheumatology [address] [place] [address] Alan Mann MBBS [address] [place] [phone] documented as of this encounter Visit Diagnoses Not on filedocumented in this encounter Historical Medications * This list may reflect changes made after this encounter. Medication Sig Dispensed Refills Start Date End Date vilazodone (VIIBRYD) 40 mg tablet Take 1 Tablet by mouth daily. valACYclovir (VALTREX) 1 gram tablet Take 1 Tablet by mouth every 12 hours. Every 12 hours for 7 days. naratriptan (AMERGE) 2.5 mg tablet Take 1 Tablet by mouth as needed for Migraine. 2.5 mg at onset of headache, may repeat in 4 hours if needed Naratriptan 1 mg tablet Take by mouth. Take 1 tablet at onset of headache; if no relief may repeat 1 tablet after at least 4 hours; max 2 tablets/24hrs water liquid 146 mL with magnesium hydroxide 400 mg/5 mL suspension 5 mL, diphenhydrAMINE 12.5 mg/5 mL elixir 60 mg, nystatin 100,000 unit/mL suspension 500,000 Units Take 10 mL by mouth. Swish and spit 10 mL every 6 hours as needed for 6 days LORazepam (ATIVAN) 0.5 mg tablet Take 1 Tablet by mouth 3 times daily. Take one tablet by mouth as needed for anxiety/claustropho soraida, take one tablet by mouth 30 minutes before MRI, you make take a second pill at time of MRI Daily Max: 1.5 mg lidocaine (XYLOCAINE) 2 % solution Take 15 mL by mouth every 3 hours. lamoTRIgine (LAMICTAL) 150 mg tablet Take 1 Tablet by mouth daily. Take one tablet by mouth daily monitor for rash cetirizine (ZYRTEC) 10 mg tablet Take 1 Tablet by mouth daily. erenumab-aooe (AIMOVIG AUTOINJECTOR) 140 mg/mL auto-injector Inject 1 mL into the skin every 28 days. added in this encounter Care Teams Calcine Furnace Tender Relationship Specialty Start Date End Date Tim Kim MD [address] [place] [address] PCP - General 09/03/21 documented as of this encounter
--- OUTSIDE RECORDS SUMMARY | 2024-04-18 07:48 | XMS_ITS | Clinical Summary ---
Author Organization [facility] Address [address] [place] [address] Care Team Providers Care Auto Body Repair Technician Name Role Phone Tim Kim MD Primary Care Provider [phone] Allergies Active Allergy Reactions Criticality Noted Date Comments Dextroamphetamine-Amph etamine Other (See Comments) 04/08/2024 Anger issues Ibuprofen Hives 04/08/2024 Codeine Itching 04/08/2024 Guanfacine Other (See Comments) 04/08/2024 Low BP & fainting episodes Paroxetine Hcl Swelling 04/08/2024 Penicillins Anaphylaxis High 04/08/2024 Medications Medication Sig Dispensed Refills Start Date End Date Status erenumab-aooe (AIMOVIG AUTOINJECTOR) 140 mg/mL auto-injector Inject 1 mL into the skin every 28 days. Active cetirizine (ZYRTEC) 10 mg tablet Take 1 Tablet by mouth daily. Active lamoTRIgine (LAMICTAL) 150 mg tablet Take 1 Tablet by mouth daily. Take one tablet by mouth daily monitor for rash Active lidocaine (XYLOCAINE) 2 % solution Take 15 mL by mouth every 3 hours. Active LORazepam (ATIVAN) 0.5 mg tablet Take 1 Tablet by mouth 3 times daily. Take one tablet by mouth as needed for anxiety/claustro phobia, take one tablet by mouth 30 minutes before MRI, you make take a second pill at time of MRI Daily Max: 1.5 mg Active water liquid 146 mL with magnesium hydroxide 400 mg/5 mL suspension 5 mL, diphenhydrAMINE 12.5 mg/5 mL elixir 60 mg, nystatin 100,000 unit/mL suspension 500,000 Units Take 10 mL by mouth. Swish and spit 10 mL every 6 hours as needed for 6 days Active Naratriptan 1 mg tablet Take by mouth. Take 1 tablet at onset of headache; if no relief may repeat 1 tablet after at least 4 hours; max 2 tablets/24hrs Active naratriptan (AMERGE) 2.5 mg tablet Take 1 Tablet by mouth as needed for Migraine. 2.5 mg at onset of headache, may repeat in 4 hours if needed Active valACYclovir (VALTREX) 1 gram tablet Take 1 Tablet by mouth every 12 hours. Every 12 hours for 7 days. Active vilazodone (VIIBRYD) 40 mg tablet Take 1 Tablet by mouth daily. Active Active Problems Problem Noted Date Diagnosed Date Chancroid 04/08/2024 Anemia 04/08/2024 Major depression 04/08/2024 Mood disorder ([facility]) 04/08/2024 Anxiety disorder 04/08/2024 Tobacco user 04/08/2024 Adjustment disorder 04/08/2024 Posttraumatic stress disorder 04/08/2024 Attention deficit hyperactivity disorder 024 Migraine 04/08/2024 Hereditary and idiopathic peripheral neuropathy 04/08/2024 Sinusitis 04/08/2024 Constipation 04/08/2024 Menometrorrhagia 04/08/2024 Seborrheic dermatitis of scalp 04/08/2024 Pain in lower limb 04/08/2024 Lightheadedness 04/08/2024 Sleep disorder 04/08/2024 Paresthesia 04/08/2024 Abnormal weight gain 04/08/2024 Increased frequency of urination 04/08/2024 History of infectious disease 04/08/2024 Panic disorder 04/08/2024 Pelvic and perineal pain 04/08/2024 Myofascial pain syndrome 04/08/2024 Right foot drop 04/08/2024 Encounters Date Type Department Care Team Description 04/08/2024 Abstract [facility] Rhe[facility] [address] [place] [address] Alan Mann MBBS from Last 3 Months Immunizations Name Administration Dates Next Due HPV Quadrivalent Recombinant Vaccine 04/21/2014, 02/26/2009,02/03/2007 Hepatitis B 03/28/1997,03/28/1994,1992 Hib 06/20/1993,1992 Historical DTaP Vaccine, Unspecified 03/1994,03/21/1993,01/24/1993,1992 Historical Influenza Vaccine , Unspecified 04/20/2019 Historical Polio Vaccine, Unspecified ,09/03/1993,03/21/1993,1992,1992 Influenza H1N1 IM 05/01/2009 Influenza Vaccine Quad PF 0. 5 ml IM (6 mos+) 03/15/2020 MMR Vaccine SQ 02/27/1999,12/26/1993 Td 01/20/2003 Tdap Vaccine =>7YO IM 04/05/2014,12/03/2012 Surgical History Surgery Date Site/Laterality Comments TUBAL LIGATION Family History Medical History Relation Comments *Other(comment) Daughter family history o f acute medical disorder Autism Daughter DEL Daughter *Other(comment) Maternal Grandfather family hist ory of malignant neoplasm Throat cancer Maternal Grandfather *Other(comment) Maternal Grandmother family hist ory of thyroid disorder, family history of heart failure *Other(comment) Mother family history o f hypercholesterolemia & hypertension Relation Status Comments Daughter Alive Maternal Grandfather Maternal Grandmother Mother Social History Tobacco Use Types Packs/Day Years Used Date Smoking Tobacco: Former Cigarettes Tobacco Cessation:Counseling Given: Not Answered Sex and Gender Information Value Date Recorded Sex Assigned at Not on file Gender Identity Not on file Sexual Orientation Not on file Obstetrics History Plan of Treatment Upcoming Encounters Date Type Department Care Team (Late st Contact Info) Description 04/28/2024 14:45 EDT Office Visit [facility] Rheumatology [address] [place] [address] Alan Mann MBBS [address] [place] [address], [facility] [address] [place] [address] Health Maintenance Due Date Last Done Comments COVID-19 Vaccine (2023-2 5 season) 2024 Hepatitis B Vaccine Completed 03/28/1997, 03/28/1994, 1992 Hepatitis C Screen Completed 04/10/2021 Procedures Procedure Name Priority Date/Time Associated Diagnosis Comments HEPATITIS C AB W REFLEX TO HCV RNA BY PCR Routine 04/10/2021 8:58 EDT from Last 3 Months or Most Recently Relevant to Health Maintenance Results * HEPATITIS C AB W REFLEX TO HCV RNA BY PCR (04/10/2021 8:58 EDT) Hep C Antibody Negative Negative 04/11/2021 10:07 EDT [facility] Blood VENOUS BLOOD / Unknown 04/10/2021 8:58 EDT 04/10/2021 16:25 EDT Provider Outr Resulting Lab CHEMISTRY & BLOOD GAS ORDERABLES [facility] [address] [place] [address] from Last 3 Months or Most Recently Relevant to Health Maintenance Care Teams Auto Body Repair Technician Relationship Specialty Start Date End Date Tim Kim MD [address] [place] [address] PCP - General 09/03/21
--- OUTSIDE RECORDS SUMMARY | 2024-04-18 07:48 | XMS_ITS | Encounter Summary ---
Author Organization [facility] Address [address] [place] [address] Care Team Providers Care Cold Type Composing Machine Operator Name Role Phone Tim Kim MD Primary Care Provider [phone] Encounter Details Date Type Department Care Team (Late st Contact Info) Description 11/03/[address] [facility] Pathology & Laboratory Medicine - [address] [address] Outr Resulting Lab, Provider Social History Tobacco [...] 04/28/2024 14:45 EDT Office Visit [facility] Rheumatology [address] [place] [address] Alan Mann MBBS [address] [place] [address] 5 [place] [phone] documented as of this encounter Procedures Procedure Name Priority Date/Time Associated Diagnosis Comments HSV (HERPES SIMPLEX VIRUS) MOLECULAR DETECTION, PCR Routine 11/02/2023 17:25 EDT documented in this encounter Results * HSV (HERPES SIMPLEX VIRUS) MOLECULAR DETECTION, PCR (11/02/2023 17:25 EDT) Herpes Simplex Virus Molecular Detection 1, PCR Negative Negative 11/04/2023 9:44 EDT [facility] Herpes Simplex Virus Molecular Detection 2, PCR Negative Negative 11/04/2023 9:44 EDT [facility] Swab ABSCESS MORPHOLOGY / Unknown 11/02/2023 17:25 EDT 11/03/2023 17:42 EDT Provider Outr Resulting Lab MICROBIOLOGY - GENERAL ORDERABLES Performing Organization Address City/State/[facility] Co de Phone Number [facility] [address] [place] [address] documented in this encounter Visit Diagnoses Not on filedocumented in this encounter Care Teams Cold Type Composing Machine Operator Relationship Specialty Start Date End Date Tim Kim MD [address] [place] [address] PCP - General 09/03/21 documented as of this encounter
--- OUTSIDE RECORDS SUMMARY | 2024-04-18 07:48 | XMS_ITS | Encounter Summary ---
Author Organization [facility] Address [address] [place] [address] Care Team Providers Care Shovel Log Loader Operator Name Role Phone Tim Kim MD Primary Care Provider [phone] Encounter Details Date Type Department Care Team (Late st Contact Info) Description 01/09/2022 Lab Requisition [facility] Pathology & Laboratory Medicine - [address] [address] Griselda Alonso MD [address] [place] [address] [place] [address] Encounter for sterilization Social History [...] Office Visit [facility] Rheumatology [address] [place] [address] Alan Mann MBBS 111 [facility], [facility] 5 [place] [address] documented as of this encounter [...] explore management options, if applicable. 01/13/2022 14:36 [facility] Final Diagnosis A. FALLOPIAN TUBE, LEFT, PARTIAL SALPINGECTOMY: - Segment of fallopian tube with no specific pathologic features. - Full cross-sections identified. B. FALLOPIAN TUBE, RIGHT, PARTIAL SALPINGECTOMY: - Segment of fallopian tube with no specific pathologic features. - Full cross-sections identified. 01/13/2022 14:36 [facility] Attestation There was significant resident/fellow involvement in the diagnostic evaluation of this case. By the signature below, the attending physician certifies that they have personally conducted a gross and/or microscopic examination of the described specimens and rendered or confirmed the above diagnosis. 01/13/2022 14:36 [facility] at 1436 Clinical History Desires sterilization 01/13/2022 14:36 [facility] Gross Description A. Received in formalin labelled with proper patient identification (initials N, S) and left fallopian tube are 2 segments of ott-case, tubular tissue (1.5 cm in length by 0.3 cm in diameter and 5.2 cm in length by 0.4 cm in diameter). The serosal surfaces are smooth and ott-case. No fimbria are present. Three inbound customer service representative sections are submitted in A1. B. Received in formalin labelled with proper patient identification (initials N, S) and right fallopian tube is a 5.7 cm in length by 0.5 cm in diameter fimbriated fallopian tube. The serosa is smooth and purple-case. Sectioning reveals a patent, unremarkable lumen. Curator sections, to include the bisected fimbria, are submitted in B1-B2. LIZ DOW(ASCP) 01/09/2022 10:02 01/13/2022 14:36 [facility] Resident/Tony w: Florina Lewis DO 01/13/2022 14:36 EDT [facility] Performing Lab [facility] 01/13/2022 14:36 EDT [facility] Scanned Images 01/13/2022 14:36 EDT [facility] Tissue ENTIRE FALLOPIAN TUBE / Unknown 01/08/2022 11:40 EDT 01/09/2022 6:40 EDT Tissue specimen (specimen) FALLOPIAN TUBE STRUCTURE / Unknown 01/08/2022 11:40 EDT 01/09/2022 6:40 EDT Griselda Alonso MD PATHOLOGY ORDERABLES [facility] [address] [place] [address] documented in this encounter Visit Diagnoses Diagnosis Encounter for sterilization Sterilization documented in this encounter Care Teams Shovel Log Loader Operator Relationship Specialty Start Date End Date Tim Kim MD [address] [place] [address] PCP - General 09/03/21 documented as of this encounter
--- OUTSIDE RECORDS SUMMARY | 2024-04-18 07:48 | XMS_ITS | Encounter Summary ---
[place] [address] Care Team Providers Care Water Pumping Station Engineer Name Role Phone Tim Kim MD Primary Care Provider [phone] Encounter Details Date Type Department Care Team [...] on filedocumented in this encounter Care Teams Water Pumping Station Engineer Relationship Specialty Start Date End Date Tim Kim MD [address] [place] [address] PCP - General 05/28/10 documented as of this encounter
--- OUTSIDE RECORDS SUMMARY | 2024-04-18 07:48 | XMS_ITS | Referral Summary ---
Author Organization [facility] Address [address] [place] [address] Care Team Providers Care Digital Marketing Intern Name Role Phone Tim Kim MD Primary Care Provider [phone] Encounters Date Type Department Care Team Description 04/08/2024 Abstract [facility] [address] [place] [address] Alan Mann MBBS from Last 3 Months Allergies Active Allergy Reactions Criticality Noted Date [...] 04/08/2024 Major depression 04/08/2024 Mood disorder ([facility]) 04/08/2024 Anxiety disorder 04/08/2024 Tobacco user 04/08/2024 [...] pain syndrome 04/08/2024 Right foot drop 04/08/2024 Immunizations Name Administration Dates Next Due HPV Quadrivalent Recombinant Vaccine 04/21/2014, 02/26/2009,02/03/2007 Hepatitis B 03/28/1997,03/28/1994,1992 Hib 06/20/1993,1992 Historical DTaP Vaccine, Unspecified 03/1994,03/21/1993,01/24/1993,1992 Historical Influenza Vaccine , Unspecified 04/20/2019 Historical Polio Vaccine, Unspecified ,09/03/1993,03/21/1993,1992,1992 Influenza H1N1 IM 05/01/2009 Influenza Vaccine Quad PF 0. 5 ml IM (6 mos+) 03/15/2020 MMR Vaccine SQ 02/27/1999,12/26/1993 Td 01/20/2003 Tdap Vaccine =>7YO IM 04/05/2014,12/03/2012 Social History Tobacco Use Types Packs/Day Years Used Date Smoking Tobacco: Former Cigarettes Tobacco Cessation:Counseling Given: Not Answered Sex and Gender Information Value Date Recorded Sex Assigned at Not on file Gender Identity Not on file Sexual Orientation Not on file Plan of Treatment Upcoming Encounters Date Type Department Care Team (Late st Contact Info) Description 04/28/2024 14:45 EDT Office Visit [facility] Rheumatology [address] [place] [address] Alan Mann MBBS 111 [facility] 5 [place] [address] Procedures Procedure Name Priority Date/Time Associated Diagnosis Comments HEPATITIS C AB W REFLEX TO HCV RNA BY PCR Routine 04/10/2021 8:58 EDT from Last 3 Months or Most Recently Relevant to Health Maintenance Results * HEPATITIS C AB W REFLEX TO HCV RNA BY PCR (04/10/2021 8:58 EDT) Hep C Antibody Negative Negative 04/11/2021 10:07 EDT [facility] Blood VENOUS BLOOD / Unknown 04/10/2021 8:58 EDT 04/10/2021 16:25 EDT Provider Outr Resulting Lab CHEMISTRY & BLOOD GAS ORDERABLES [facility] [address] [place] [address] from Last 3 Months or Most Recently Relevant to Health Maintenance Care Teams Digital Marketing Intern Relationship Specialty Start Date End Date Tim Kim MD [address] [place] [address] [facility] General 09/03/21
--- OUTSIDE RECORDS SUMMARY | 2024-04-18 07:48 | XMS_ITS | Encounter Summary ---
Author Organization [facility] Address [address] [place] [address] Care Team Providers Care Systems Testing Laboratory Technician Name Role Phone Unknown, Provider Primary Care Provider [phone] Tim Kim MD Primary Care Provider [phone] Encounter Details Date Type Department Care Team (Late st Contact Info) Description 06/15/2020 Lab Requisition [facility] Pathology & Laboratory Medicine - [address] [address] Outr Resulting Lab, Provider Social History Tobacco [...] Description 04/28/2024 14:45 EDT Office Visit [facility] Rheumatology [address] [place] [address] Alan Mann MBBS 111 [facility] 5 [place] [phone] documented as of this encounter Procedures Procedure Name Priority Date/Time Associated Diagnosis Comments DO NOT ORDER STANDALONE - BROAD COVID TEST Today 06/14/2020 11:30 EST COVID-19 TESTING Routine 06/14/2020 11:3 0 EST documented in this encounter Results * DO NOT ORDER STANDALONE - BROAD COVID TEST (06/14/2020 11:30 EST) Pathologist [facility] COVID-19 rt-PCR Result NEGATIVE Negative 06/17/2020 14:27 EST [facility] Comment: 2019-novel Coronavirus (2019-nCoV) not [...] in accordance with CLIA regulations, [employer] [place] [employer] (CAP) guidelines (Sep 22, 2019), and FDA guidance (Sep 03, 2019). This test is only for use under the Food and Drug Administration's Emergency Use Authorization. Swab ENTIRE NASOPHARYNX / Unknown 06/14/2020 11:30 EST 06/15/2020 15:53 EST Provider Outr Resulting Lab MICROBIOLOGY - GENERAL ORDERABLES [facility] [place], [place] * COVID-19 TESTING (06/14/2020 11:30 EST) COVID-19 rt-PCR Result NEGATIVE Negative 06/17/2020 16:45 EST [facility] Comment: 2019-novel Coronavirus (2019-nCoV) not [...] in accordance with CLIA regulations, [employer] [place] [employer] (CAP) guidelines (Sep 22, 2019), and FDA guidance (Sep 03, 2019). This test is only for use under the Food and Drug Administration's Emergency Use Authorization. Performing Lab [facility] 06/17/2020 16:45 EST [facility] Swab 06/14/2020 11:3 0 EST 06/15/2020 15:53 EST Provider Outr Resulting Lab MICROBIOLOGY - GENERAL ORDERABLES [facility] [address] [place] [address] [facility] [place] documented in this encounter Visit Diagnoses Not on filedocumented in this encounter Care Teams Systems Testing Laboratory Technician Relationship Specialty Start Date End Date Unknown, MD Lianna PCP - General 04/13/13 09/02/21 Tim Kim MD [address] [place] [address] PCP - General 09/03/21 documented as of this encounter
--- OUTSIDE RECORDS SUMMARY | 2024-04-18 07:48 | XMS_ITS | Encounter Summary ---
Author Organization [facility] Address [address] [place] [address] Care Team Providers Care Field Seismologist Name Role Phone Unknown, Provider Primary Care Provider [phone] Encounter Details Date Type Department Care Team (Late st Contact Info) Description 04/13/2013 Results Only [facility] Laboratory Services - [facility] ([facility]) [address] [place] [address] Unknown, Provider, Social History Tobacco Use Types [...] Office Visit [facility] [address] [place] [address] Alan Mann MBBS 111 [facility] [address] [place] [phone] documented as of this encounter Procedures Procedure Name Priority Date/Time Associated Diagnosis Comments SCREEN TEST Routine 04/13/2013 16: 03 EDT documented in this encounter Results * SCREEN TEST (04/13/2013 16:03 EDT) Screen Test NEGATIVE [facility] 04/13/2013 16:0 3 EDT Provider Unknown BLOOD BANK TESTS [facility] [address] [place] [address] documented in this encounter Visit Diagnoses Not on filedocumented in this encounter Care Teams Field Seismologist Relationship Specialty Start Date End Date Unknown, Provider, PCP - General 04/13/13 09/02/21 documented as of this encounter
--- OUTSIDE RECORDS SUMMARY | 2024-04-18 07:48 | XMS_ITS | Encounter Summary ---
Author Organization [facility] Address [address] [place] [address] Care Team Providers Care Dye Jig Operator Name Role Phone Unknown, Provider Primary Care Provider [phone] Tim Kim MD Primary Care Provider [phone] Encounter Details Date Type Department Care Team (Late st Contact Info) Description 07/27/[address] [facility] Pathology & Laboratory Medicine - [address] [address] Outr Resulting Lab, Provider Social History Tobacco [...] Description 04/28/2024 14:45 EDT Office Visit [facility] [place] [address] [place] [address] Alan Mann MBBS [address] [place] [address] [address] [place] [phone] documented as of this encounter Procedures Procedure Name Priority Date/Time Associated Diagnosis Comments CHLAMYDIA/N. GONORRHOEAE AMPLIFIED NUCLEIC ACID Routine 07/27/2020 11:25 EST documented in this encounter Results * CHLAMYDIA/N. GONORRHOEAE AMPLIFIED RNA (07/27/2020 11:25 EST) Neisseria gonorrhoeae Result Negative Negative 07/30/2020 14:21 EST [facility] Chlamydia trachomatis Result Negative Negative 07/30/2020 14:21 EST [facility] Swab ENTIRE WALL OF CERVIX / Unknown 07/27/2020 11:25 EST 07/27/2020 22:04 EST Provider Outr Resulting Lab MICROBIOLOGY - GENERAL ORDERABLES Performing Organization Address City/State/[facility] Co de Phone Number [facility] [address] [place] [address] documented in this encounter Visit Diagnoses Not on filedocumented in this encounter Care Teams Dye Jig Operator Relationship Specialty Start Date End Date Unknown, Provider, PCP - General 04/13/13 09/02/21 Tim Kim MD [address] [place] [address] PCP - General 09/03/21 documented as of this encounter
--- OUTSIDE RECORDS SUMMARY | 2024-04-18 07:48 | XMS_ITS | Encounter Summary ---
Author Organization [facility] Address [address] [place] [address] Care Team Providers Care Real Time Trader Name Role Phone Unknown, Provider Primary Care Provider [phone] Tim Kim MD Primary Care Provider [phone] Encounter Details Date Type Department Care Team (Late st Contact Info) Description 12/17/2020 Lab Requisition [facility] Pathology & Laboratory Medicine - [address] [address] Pam Means MD 111 [facility] 4 [place] [address] Encounter for other general examination Social History [...] 14:45 EDT Office Visit [facility] Rheumatology [address] [place] [address] Alan aMnn MBBS 111 [facility] 5 [place] [address] documented as of this encounter Procedures Procedure Name Priority Date/Time Associated Diagnosis Comments PAP TEST Today 12/14/2020 9:10 EDT Encounter for other general examination documented in this encounter Results * PAP TEST (12/14/2020 9:10 EDT) Specimens A. Cervix and/or Endocervix , ThinPrep Imaging System with Manual Evaluation 12/25/2020 10:17 EDT [facility] Specimen Adequacy Satisfactory for Evaluation - transformation zone component present 12/25/2020 10:17 EDT [facility] General Categorization Negative for intraepithelial lesion or malignancy 12/25/2020 10:17 EDT [facility] Attestation . 12/25/2020 10:17 T [facility] at 1017 Clinical History See below 12/26/19 10:17 EDT [facility] Performing Lab [facility] 12/25/2020 10:17 T [facility] Scanned Images 12/25/2020 10:17 EDT [facility] Papanicolaou smear specimen (specimen) CERVIX UTERI STRUCTURE / Unknown 12/14/2020 9:10 EDT 12/17/2020 15:30 EDT Pam Means MD PATHOLOGY ORDERAB LES [facility] [address] [place] [address] documented in this encounter Visit Diagnoses Diagnosis Encounter for other general examination documented in this encounter Care Teams Real Time Trader Relationship Specialty Start Date End Date Unknown, Provider, PCP - General 04/13/13 09/02/21 Tim Kim MD [address] [place] [address] PCP - General 09/03/21 documented as of this encounter
--- OUTSIDE RECORDS SUMMARY | 2024-04-18 07:48 | XMS_ITS | Encounter Summary ---
[place] [address] Care Team Providers Care Field Marketing Associate Name Role Phone Tim Kim MD Primary Care Provider Reason for Visit * Consultation (Routine) - Closed Specialty Diagnoses / Procedures Referred By Contac t Referred To Contact Neurology Diagnoses Pain in leg, unspecified Tim Kim MD [address] [place] [address] [facility] [address] [place] [id number] Referral ID Status Reason Start Date Expiration Date V isits Requested Visits Authorized [id number] Closed Consult, Test & Treat [facility] PCP Updated and/or Approved 07/23/2020 07/23/2021 6 6 Encounter Details Date Type Department Care Team (Latest Contact Info) Description 10/15/2020 1:00 PM EDT Procedure [place] [address] Samy Mckeon MD [facility] [place] [address] Bilateral leg paresthesia; Muscle pain [...] well as recent note from neurology at [facility]. Radha first noted pain in her [...] today. She ended up having evaluation in [place]. She had several lab tests per the [facility] neurology notes. This included unremarkable CBC, CMP, TSH, magnesium, CK, CCP, celiac antibodies, Lyme panel, SHIKHA, rheumatoid factor, ESR, CRP. 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 She also had lumbar spine MRI at [facility] and it was unrevealing for an [...] toes downgoing to plantar stimulation. Coordination normal [id number] and jzms-ngpr-grdd testing. Gait slow but no ataxia. Antalgic [...] set her up for that here at [facility] although we also discussed that even if positive it would otherwise not change attendant likely. If it was positive further [...] she like to have that done at [facility] in [facility] we could arrange that for [...] this office visit is 45 minutes including [id number] time, chart review, and documentation. Time was exclusive of the time for EMG nerve conduction studies. This note was created with voice recognition software. documented in this encounter Plan of Treatment Not on file documented as of this encounter Visit Diagnoses Diagnosis Bilateral leg paresthesia Disturbance of skin sensation Muscle pain Mylagia and myositis, unspecified documented in this encounter Care Teams Field Marketing Associate Relationship Specialty Start Date End Date Tim Kim MD [address] [place] [address] PCP - General 05/28/10 documented as of this encounter
--- OUTSIDE RECORDS SUMMARY | 2024-04-18 07:48 | XMS_ITS | Encounter Summary ---
Author Organization [facility] Address [address] [place] [address] Care Team Providers Care Associate Director Qa Name Role Phone Tim Kim MD Primary Care Provider [phone] Encounter Details Date Type Department Care Team (Late st Contact Info) Description 10/21/2021 Lab Requisition [facility] Pathology & Laboratory Medicine - [address] [address] Jerica Hernandez [address] [place] [address] [place] [address] Encounter for other general examination [...] Info) Description 04/28/2024 14:45 EDT Office Visit [facility] Rheumatology [address] [place] [address] Alan Mann MBBS 111 [facility] 5 [place] [phone] documented as of this encounter Procedures Procedure [...] explore management options, if applicable. 10/30/2021 16:27 [facility] Final Diagnosis A. 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 10/30/2021 16:27 [facility] Diagnosis Comment Diagnostic [...] of smooth muscle. Sandoval MATHIAS, Edith Dasilva (2021). [place] of Placental Pathology. AFIP Atlases of Tumor and non-Tumor Pathology (Series 5). [place] [employer] Pathology; [place], [place]. Adapted from Nestor RW, Shubham O, Carolina D, Frances F, Magalie V, Corey Arenas; Society for Pediatric Pathology, Section, Amniotic Fluid Infection Nosology Committee. 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 Pediatr Dev Pathol. 2002-Apr;6(5):435-4 8. 10/30/2021 16:27 [facility] Attestation By the signature below, the attending physician certifies that they have 1) personally conducted a gross and/or microscopic examination of the described specimen(s), and/or personally interpreted the results of laboratory testing of the described specimen(s), and 2) personally rendered or confirmed the above diagnosis. 10/30/2021 16:27 [facility] at 1627 Clinical History Active labor, 38.6 weeks 10/30/2021 16:27 [facility] Gross Description A. [...] and has a partly gelatinous cut surface. Log Cooker sections are submitted as follows: BLOCK RANGEL [...] LIZ ASHLEY(ASCP) 10/22/2021 14:27 10/30/2021 16:27 EDT [facility] Performing Lab [facility] 16:27 EDT [facility] Scanned Images 10/30/2021 16:27 EDT [facility] Tissue PLACENTAL STRUCTURE / Unknown 10/20/2021 21:46 EDT 10/21/2021 17:21 EDT Jerica Hernandez PATHOLOGY ORDERABLES [facility] [address] [place] [address] documented in this encounter Visit Diagnoses Diagnosis Encounter for other general examination documented in this encounter Care Teams Associate Director Qa Relationship Specialty Start Date End Date Tim Kim MD [address] [place] [address] PCP - General 09/03/21 documented as of this encounter
[2024-04-18] MEDS: Acetaminophen 325 MG TAB 650 MG PO (07:55)
--- NOTE | 2024-04-18 08:00 | W.ED.GENAD ---
Discharge Plan Disposition Patient Disposition: Home Condition: Good Discharge Details Clinical Impression: Contusion of dorsum of right hand Primary Care Provider: Avis Koch ED Provider: Mega Rhodes Home Meds and New Rx's Prescriptions: No Action lamotrigine 100 mg tablet 150 mg PO DAILY Ubrelvy 100 mg tablet 100 mg PO ONCE Qty: 16 5RF Rx Instructions: as a single dose; may repeat once in >=2 hours after first dose if needed Aimovig Autoinjector 140 mg/mL auto-injector 140 mg subcut QMONTH Qty: 3 3RF Viibryd 10 mg (7)- 20 mg (23) tablets,dose pack 40 dose pk PO DIRECTED Patient Comments: TAKE ONE BY MOUTH EVERY DAY WITH FOOD Discharge Instructions Instructions: Minor Contusion ED Additional Instructions: X-ray does not demonstrate a fracture or any bony abnormality Continue Motrin or Tylenol as needed for discomfort You can continue to apply ice pack 10 to 15 minutes every few hours to help with bruising and swelling HPI General Date/Time Provider Initiated Documentation: 04/18/24 07:51. Limitations to Documentation: no limitations. Information obtained by: patient. HPI Narrative: 33-year-old female without significant past medical history presents for evaluation of right hand pain. She reports just prior to arrival, her dog leash got wrapped around her hand and the dog pulled causing pain in her hand. She reports the pain is worse along the lateral side of the right hand. She is left-hand dominant. Denies any open wounds, numbness or tingling. Reports pain worse with movement, but denies any weakness. Related Data Home Medications ?Medication ?Instructions ?Recorded ?Confirmed lamotrigine 100 mg tablet 150 mg PO DAILY 03/25/23 04/18/24 vilazodone 10 mg (7)-20 mg (23) 40 dose pk PO DIRECTED 03/25/23 04/18/24 tablets in a titration pack (Viibryd) erenumab-aooe 140 mg/mL 140 mg subcut QMONTH #3 mL 02/08/24 04/18/24 subcutaneous auto-injector (Aimovig Autoinjector) ubrogepant 100 mg tablet (Ubrelvy) 100 mg PO ONCE #16 tabs 02/10/24 04/18/24 Previous Rx's ?Medication ?Instructions ?Recorded erenumab-aooe 140 mg/mL 140 mg subcut QMONTH #3 mL 02/08/24 subcutaneous auto-injector (Aimovig Autoinjector) ubrogepant 100 mg tablet (Ubrelvy) 100 mg PO ONCE #16 tabs 02/10/24 Allergies Allergy/AdvReac Type Severity Reaction Status Date / Time ibuprofen Allergy Severe Skin Rash Verified 04/18/24 07:45 paroxetine (From Paxil) Allergy Severe throat Verified 04/18/24 07:45 swells penicillin G Allergy Severe Anaphylaxis Verified 04/18/24 07:45 codeine Allergy Intermediate HIVES Verified 04/18/24 07:45 General Stated Complaint: Orthopedic FRITZ: 4 Exam Narrative Exam Narrative: Review of Systems: All systems reviewed & are unremarkable except as noted in HPI and below Well-developed, no acute distress NCAT Unlabored respiratory effort Right hand with bruise noted along the fifth metacarpal no deformity appreciated, no tenderness within the wrist, no snuffbox tenderness, full range of motion and good strength in all distributions Course Vital Signs Vital signs: Vital Signs Temperature 36.6 C 04/18/24 07:42 Pulse 61 04/18/24 07:42 Respiratory Rate 14 04/18/24 07:42 Blood Pressure 104/69 04/18/24 07:42 Pulse Oximetry 97 04/18/24 07:42 Temperature 36.6 C 04/18/24 07:42 Pulse 61 04/18/24 07:42 Respiratory Rate 14 04/18/24 07:42 Respiratory Effort Normal, Non-Labored 04/18/24 07:46 Blood Pressure 104/69 04/18/24 07:42 Blood Pressure Position Sitting 04/18/24 07:42 Pulse Oximetry 97 04/18/24 07:42 Oxygen Delivery Method Room Air 04/18/24 07:42 Oxygen Flow Rate 0 04/18/24 07:42 Pain Level 6 04/18/24 07:55 Medical Decision Making Emergent evaluation of acute traumatic hand injury. Bruising noted without obvious deformity or neurovascular compromise. Suspect contusion, and also consider fracture. No open wounds requiring repair. Will give Tylenol for pain, ice pack and get x-ray imaging to evaluate for possible fracture. [id number] Right hand x-ray reviewed and independently interpreted: No acute bony process. Will discharge with supportive care, ice pack to tile Quality:[facility] Health Related Social Needs: No Data to Display PFSH All Active Problems (Updated 04/18/24 @ 08:07 by Mega Rhodes MD) Contusion of dorsum of right hand (Acute) History of penicillin allergy (Acute) Family history of thyroid disease in mother (Acute) Mother had thyroidectomy as well as MGM Right leg weakness (Acute) Right ankle instability (Acute) Migraine headache without aura (Acute) Migraine headache with aura (Acute) Migraine with status migrainosus (Acute) 10/22/21. prophylactic medication changed to Propranalol 20mg BID. Pt will f/u with Dr. Nunez Depression with anxiety (Chronic) Idiopathic small fiber peripheral neuropathy (Acute) Medical History Fibromyalgia History of prior with [facility]GA History of anorexia nervosa PTSD (post-traumatic stress disorder) Pt. states nothing is a potential trigger ADHD Opioid dependence No MAT for 6 years Tobacco use Hx of varicella Idiopathic peripheral neuropathy Surgical History Status post primary low transverse section 10/20/2021. Arrest of labor. Family History Mother Devic's syndrome Headache Sister Cancer bone marrow cancer Social History Smoking/Tobacco Use Status: Current-Occasional Tobacco Type: e-cigarettes Smoking risk assessment performed?: Yes Alcohol Intake: current Alcohol Intake frequency: a few times a month Alcohol type: beer Drug use: Rarely Substance use type: marijuana Details: last time smoked over a year per pt. Adopted: No Household members: children Housing: house Number of Children: 2 current occupation: [employer] working Pets and animals: Yes (hermit crab) Current gender identity: female What is your relationship status?: never Panel score (0-1 are the most socially isolated patients): 0 What type of physical activity do you participate in: none Seatbelt use: sometimes Do you feel safe at home: Yes Do you feel safe in your relationship?: Yes History History 2 Para 2 Hx # Term Pregnancies 2 Multiple births 0 Hx # Pregnancies 0 Ectopic pregnancies 0 AB induced 0 Hx Number of Living Children 2 AB spontaneous 0 Past Pregnancies Del. Date GA/Weeks # Preg Succ Route Wgt Sex Labor Lgth Anesthesia Location Prov Complic 04/11/13 40 No vaginal 2409.709 g Female [facility] 10/20/21 39 No 4082.331 g Male Jerica Hernandez Delivery Date: 04/11/13 Last Updated by: Leilani Putnam CNM SGA, Rachelle Delivery Date: 10/20/21 Last Updated by: ARI Hunter
== END 2024-04-18 08:12 | disposition home or self-care (01) ==
PROVIDERS: Emergency Provider Emergency Medicine; PCP Nurse Practitioner Family
DX: S60.221A Contusion of right hand, initial encounter (principal); X50.9XXA Other and unspecified overexertion or strenuous movements or postures, initial encounter; Y93.K1 Activity, walking an animal; Y92.89 Other specified places as the place of occurrence of the external cause
CPT/HCPCS: 99283; 73130

== ENCOUNTER 2024-05-16 19:49 | Emergency (ER) | payer MEDICAID, SELFPAY ==
--- OUTSIDE RECORDS SUMMARY | 2024-05-16 19:54 | XMS_ITS | Continuity of Care Document ---
Author Organization [facility] Address [address] [place] [address] Encounter LTTL_NH FIN NBR [id number] Date(s): 02/02/24 - 02/02/24 [facility] [address], [place] [address] Encounter Diagnosis Eye pain(Discharge Diagnosis) - 02/02/24 Ocular pain, left eye(Final) - Discharge Disposition: Home or Self Care Attending Physician: Ron Osuna MD Admitting Physician: Ron Osuna MD Allergies, Adverse Reactions, Alerts Substance Reaction Severity Status codeine Moderate Active penicillin Moderate Active Paxil Moderate Active Assessment and Plan Extracted from: Title:ED Provider Note Author:RAJ Hathaway RN Date:02/02/24 Assessment/Plan 1.??Eye pain??H57.10 Orders: erythromycin ophthalmic, 1 joe, Eye-Left, Ointment, QID, First Dose: 02/02/24 21:00:00 EDT predniSONE 20 mg oral tablet, 60 mg = 3 tab, Oral, Daily, X 5 days, # 15 tab, 0 Refill(s), 02/07/24 20:03:00 EDT, Pharmacy: [id number], 158, cm, 02/02/24 18:18:00 EDT, Height, 68, kg, 02/02/24 18:23:00 EDT, Weight Dosing Patient Education Scleritis and Episcleritis Medications Aimovig SureClick Autoinjector 0 Refill(s) Start Date: 02/02/24 Status: Ordered lamoTRIgine 100 mg oral tablet 0 Refill(s) Start Date: 02/02/24 Status: Ordered nortriptyline 0 Refill(s) Start Date: 02/02/24 Status: Ordered predniSONE 20 mg oral tablet 60 mg = 3 tab, Oral, Daily, X 5 days, # 15 tab, 0 Refill(s), 02/07/24 7:03:00 PM CDT, Pharmacy: [id number], 158, cm, 02/02/24 18:18:00 EDT, Height, 68, kg, 02/02/24 18:23:00 EDT, Weight Dosing Start Date: 02/02/24 Stop Date: 02/07/24 Status: Ordered Viibryd 40 mg oral tablet 0 Refill(s) Start Date: 02/02/24 Status: Ordered Mental Status 02/02/24 Eye Opening Response Addi Spontaneous ly Best Verbal Response Addi Oriented Best Motor Response Keyes Obeys comman ds Keyes Coma Score 15 Vital Signs Most recent to oldest [Reference Range]: 1 2 Temperature Temporal Artery [36-38 Deg C ] 36.6 Deg C (02/02/24 6:18 PM) Peripheral Pulse Rate [60-100 bpm] 85 bp m (02/02/24 8:13 PM) 112 bpm *HI* (02/02/24 6:18 PM) Respiratory Rate [12-24 br/min] 16 br/mi n (02/02/24 6:18 PM) Blood Pressure [90-140/60-90 mmHg] 123/8 6mmHg (02/02/24 6:18 PM) Mean Arterial Pressure, Cuff [65-140 mmH g] 98 mmHg (02/02/24 6:18 PM) Weight 68 kg (02/02/24 6:18 PM) Weight Dosing 68.000 kg (02/02/24 6:18 PM) Height 158 cm (02/02/24 6:18 PM) Body Mass Index 27.24 kg/m2 (02/02/24 6:18 PM) Social History Social History Type Response Tobacco Never tobacco user T obacco Use:. Sex Hospital Discharge Instructions Patient Education 02/02/2024 19:08:18 Scleritis and Episcleritis Scleritis and Episcleritis Scleritis and episcleritis are conditions that cause redness and inflammation of the white part of the eye (sclera). Both of these conditions may affect one or both eyes. ??? Episcleritis involves only the surface of the sclera. Episcleritis is a mild condition that does not affect your vision. It usually clears up in a few days without treatment. ??? Scleritis involves the body of the sclera. It is a serious condition that may cause severe painand some vision loss. Scleritis often needs to be treated with strong medicines. These two conditions may occur with other diseases that cause inflammation, including diseases in which your body's disease-fighting system (immune system) mistakenly attacks normal body tissues (autoimmune diseases). What are the causes? Rheumatoid arthritis, an autoimmune disease, may cause scleritis or episcleritis. Some other diseases may cause these conditions, such as Crohn's disease, lupus, and inflammatory bowel disease. Scleritis may be caused by: ??? Autoimmune diseases. ??? Infection. ??? An unknown cause in some cases. Episcleritis has no known cause in most cases, but may be caused by: ??? Eye irritations. ??? Autoimmune conditions, infections, and cancers in rare cases. What increases the risk? You are more likely to develop these conditions if you: ??? Are a woman. ??? Are 20???50 years old. ??? Have an autoimmune disease, especially rheumatoid arthritis. What are the signs or symptoms? Symptoms of episcleritis include: ??? Redness of the sclera, often fairly mild. This may go away after several days. ??? Mild pain. Symptoms of scleritis include: ??? Redness of the sclera, often a deep red color. ??? Moderate to severe pain. ??? Pain that gets much worse with light exposure (photophobia). ??? Tearing. ??? Soreness when touched (tenderness). ??? Vision problems. This can range from mild blurred vision to severe vision loss. How is this diagnosed? These conditions may be diagnosed based on your symptoms, your medical history, and a physical exam. You may need to see a health care provider who specializes in diseases and conditions of the eye (hides and skins colorer). An hides and skins colorer may: ??? Put drops in your eye. ??? Examine your eye with a certain type of light (slit lamp). ??? Order blood tests or refer you to a specialist to check for autoimmune disease. How is this treated? Episcleritis often gets better without treatment after several days. If treatment is needed, it mayinclude: ??? Eye drops. ??? Cold compresses. ??? NSAIDs, such as ibuprofen or naproxen, to reduce discomfort and swelling. Scleritis is a serious condition that needs to be treated. Treatment may include: ??? Eye drops. ??? NSAIDs, such as ibuprofen or naproxen. ??? Prescription pain medicines. ??? Steroid medicines. ??? Medicines that suppress the immune system. ??? Treatment of an underlying autoimmune disease. ??? Antibiotics, though this is not usual. ??? Eye surgery. This is rare. Follow these instructions at home: Medicines ??? Take wmjy-tac-xrspmic and prescription medicines only as told by your health care provider. ??? Use eye drops only as told by your health care provider. General instructions ??? If you usually wear contact lenses, do not wear them until your health care provider says that you can. ??? If directed, use cold compresses over your eye or eyes to help relieve pain. ??? Return to your normal activities as told by your health care provider. Ask your health care provider what activities are safe for you. ??? Keep all follow-up visits. This is important. Contact a health care provider if: ??? Your symptoms have not gotten better in the expected amount of time. This can take days to weeks. ??? You develop new symptoms. ??? You develop worsening pain, photophobia, or blurred vision. ??? Your symptoms come back after treatment. Get help right away if: ??? You have severe pain or severe photophobia. ??? You have sudden vision loss. These symptoms may represent a serious problem that is an emergency. Do not wait to see if the symptoms will go away. Get medical help right away. Call your local emergency services (911 in the [place] Do not drive yourself to the hospital. Summary ??? Scleritis and episcleritis are causes of redness and inflammation of the white part of the eye (sclera). ??? Episcleritis involves the surface of the sclera, while scleritis involves the entire sclera. ??? These two conditions may occur along with other diseases that cause inflammation. ??? The conditions are often treated with eye drops, cold compresses, and oral medicines to relievethe inflammation. This information is not intended to replace advice given to you by your health care provider. Make sure you discuss any questions you have with your health care provider. Document Revised: 2021 Document Reviewed: 2021 Elsevier Patient Education ?? 2022 [employer] Physician Emergency department Note * Toya Hemphill APRN: PERFORM Event Display: ED Note Physician Authored Date: [id number] DEMETRICE GORDON :1990 Age:33 years Sex:Female Visit Date:02/02/2024 Basic Information Time Seen: Toya Hemphill APRN / 02/02/2024 19:40 Chief Complaint Pt arrives with complaints of L eye pain that has persisted for a few days. Pt states the pain is stabbing and has not been relieved with ibuprofen, tylenol, oxycodone or her migraine medications. [facility]was at [facility]. History Of Present Illness: Patient is a 33-year-old female who presents today with a chief complaint??of left eye pain.?? She reports she has had increasing continued??left??eye discomfort over the past??3 to 4 days, she denies any trauma or injury. ??She has been evaluated at [facility]??numerous times??over the past few days.?She reports mild visual acuity changes, pain and pressure behind the eye. ??No fever chills or bodyaches she has had a negative ultrasound??to rule out retinal detachment, CT and MRI to rule out??optic neuritis/demyelination lesion. Review of Systems: SEE HPI Physical Exam Vitals & Measurements T:??36.6?C ??(Temporal Artery)?? HR:??85??(Peripheral)?? RR:??16?? BP:??123/86?? SpO2:??97%?? HT:??158??cm?? WT:??68??kg?? BMI:??27.24?? Pain Score:??9?? O2 Therapy:??Room air?? left eye EOMI, PERRLA, Fundoscopic??exam??WNL Medical Decision Making: Patient was evaluated for left eye??pain previous??examinations and studies from??[facility] notes normal funduscopic??exam??,??normal??ophthalmic pressure, ultrasound??negative for retinal detachment, papilledema.??normal retinal exam,??negative CT angio, normal MRI.?Slit-lamp??exam was performed by ED attending, see??additional documentation.?? Discussed with patient on initiating steroids, discussed probable differential as??optic scleritis.?She has a scheduled appointment with ophthalmology at 8:00 in the morning. ??She was provided a dose of??prednisone 60 mg??and erythromycin ointment. ??She was encouraged to take ibuprofen or Tylenol for pain. Procedure No Qualifying Data Assessment/Plan 1.??Eye pain??H57.10 Orders: erythromycin ophthalmic, 1 joe, Eye-Left, Ointment, QID, First Dose: 02/02/24 21:00:00 EDT predniSONE 20 mg oral tablet, 60 mg = 3 tab, Oral, Daily, X 5 days, # 15 tab, 0 Refill(s), 02/07/2420:03:00 EDT, Pharmacy: [facility], 158, cm, 02/02/24 18:18:00 EDT, Height, 68, kg, 02/02/24 18:23:00 EDT, Weight Dosing Patient Education Scleritis and Episcleritis Medication Reconciliation New Prescription predniSONE (predniSONE 20 mg oral tablet)3 tab Oral (given by mouth) every day for 5 Days. Refills:0. ?? Unchanged erenumab (Aimovig SureClick Autoinjector) ?? lamoTRIgine (lamoTRIgine 100 mg oral tablet) ?? nortriptyline ?? vilazodone (Viibryd 40 mg oral tablet) Problem List/Past Medical History Ongoing No qualifying data Historical No qualifying data Medication Administration Given erythromycin ophthalmic, 1 joe, Eye-Left predniSONE, 60 mg, Oral Allergies Paxil codeine penicillin Social History Electronic Cigarette/Vaping Electronic Cigarette Use: Use, within last 90 days. Type: Nicotine infused. Use per Day: 1-25 Inhales/day. Tobacco Never tobacco user Tobacco Use:. Electronically Signed on 02/02/2024 21:35 EDT Toya Hemphill APRN Emergency department Discharge instructions * Toya Hemphill APRN: PERFORM Event Display: ED Discharge Information Authored Date: [id number] DEMETRICE GORDON :1990 Age:33 years Sex:Female Visit Date:02/02/2024 Discharge Instructions We would like to thank you for allowing us to assist you with your healthcare needs. The following includes patient education materials and information regarding your injury/illness. Diagnosis from Today's Visit Eye pain Discharge Vitals Temperature??(Temporal Artery) 97.9 ??F (36.6 ??C) Heart Rate??(Peripheral) 112 Respiratory Rate?? 16 Blood Pressure?? 123/86?? SpO2?? 97% Height?? 62.20 in (158 cm) Weight?? 149.94 lb (68 kg) BMI?? 27.24 Allergies Paxil codeine penicillin What to Do Next Instructions from Your Care Team Keep scheduled appointment for ophthalmology??for tomorrow morning,??repeat erythromycin ointment??tonight, prior to bed and in the morning.?Discussed continuation of steroids with ophthalmology, we have provided you daily dose over the next 5 days.?We have provided you with education on scler itis,??which?? could be the cause??of your pain.?? You can discuss with also with your eye doctor. You were treated today on an emergency basis; it may be landers to contact your primary care provider to notify them of your visit today. You may have been referred to your regular doctor or a specialist, please follow up as instructed. If your condition worsens or you can't get in to see the doctor, contact the Emergency Department. Medications What How Much When Instructions Next Dose New predniSONE (predniSONE 20 mg oral tablet) 3 tab Oral (given by mouth) Every day Duration: 5 Days Pickup at [facility] Unchanged erenumab (Aimovig SureClick Autoinjector) Unchanged lamoTRIgine (lamoTRIgine 100 mg oral tablet) Unchanged nortriptyline Unchanged vilazodone (Viibryd 40 mg oral tablet) Pharmacy Information [facility]: [address] [place] [address] [phone] Education Materials Scleritis and Episcleritis Scleritis and episcleritis are conditions that cause redness and inflammation of the white part of the eye (sclera). Both of these conditions may affect one or both eyes. ? Episcleritis involves only the surface of the sclera. Episcleritis is a mild condition that does not affect your vision. It usually clears up in a few days without treatment. ? Scleritis involves the body of the sclera. It is a serious condition that may cause severe pain andsome vision loss. Scleritis often needs to be treated with strong medicines. These two conditions may occur with other diseases that cause inflammation, including diseases in which your body's disease-fighting system (immune system) mistakenly attacks normal body tissues (autoimmune diseases). What are the causes? Rheumatoid arthritis, an autoimmune disease, may cause scleritis or episcleritis. Some other diseases may cause these conditions, such as Crohn's disease, lupus, and inflammatory bowel disease. Scleritis may be caused by: ? Autoimmune diseases. ? Infection. ? An unknown cause in some cases. Episcleritis has no known cause in most cases, but may be caused by: ? Eye irritations. ? Autoimmune conditions, infections, and cancers in rare cases. What increases the risk? You are more likely to develop these conditions if you: ? Are a woman. ? Are 20???50 years old. ? Have an autoimmune disease, especially rheumatoid arthritis. What are the signs or symptoms? Symptoms of episcleritis include: ? Redness of the sclera, often fairly mild. This may go away after several days. ? Mild pain. Symptoms of scleritis include: ? Redness of the sclera, often a deep red color. ? Moderate to severe pain. ? Pain that gets much worse with light exposure (photophobia). ? Tearing. ? Soreness when touched (tenderness). ? Vision problems. This can range from mild blurred vision to severe vision loss. How is this diagnosed? These conditions may be diagnosed based on your symptoms, your medical history, and a physical exam. You may need to see a health care provider who specializes in diseases and conditions of the eye (hides and skins colorer). An hides and skins colorer may: ? Put drops in your eye. ? Examine your eye with a certain type of light (slit lamp). ? Order blood tests or refer you to a specialist to check for autoimmune disease. How is this treated? Episcleritis often gets better without treatment after several days. If treatment is needed, it mayinclude: ? Eye drops. ? Cold compresses. ? NSAIDs, such as ibuprofen or naproxen, to reduce discomfort and swelling. Scleritis is a serious condition that needs to be treated. Treatment may include: ? Eye drops. ? NSAIDs, such as ibuprofen or naproxen. ? Prescription pain medicines. ? Steroid medicines. ? Medicines that suppress the immune system. ? Treatment of an underlying autoimmune disease. ? Antibiotics, though this is not usual. ? Eye surgery. This is rare. Follow these instructions at home: Medicines ? Take zywx-uax-nurcgzw and prescription medicines only as told by your health care provider. ? Use eye drops only as told by your health care provider. General instructions ? If you usually wear contact lenses, do not wear them until your health care provider says that you can. ? If directed, use cold compresses over your eye or eyes to help relieve pain. ? Return to your normal activities as told by your health care provider. Ask your health care provider what activities are safe for you. ? Keep all follow-up visits. This is important. Contact a health care provider if: ? Your symptoms have not gotten better in the expected amount of time. This can take days to weeks. ? You develop new symptoms. ? You develop worsening pain, photophobia, or blurred vision. ? Your symptoms come back after treatment. Get help right away if: ? You have severe pain or severe photophobia. ? You have sudden vision loss. These symptoms may represent a serious problem that is an emergency. Do not wait to see if the symptoms will go away. Get medical help right away. Call your local emergency services (911 in the [place] Do not drive yourself to the hospital. Summary ? Scleritis and episcleritis are causes of redness and inflammation of the white part of the eye (sclera). ? Episcleritis involves the surface of the sclera, while scleritis involves the entire sclera. ? These two conditions may occur along with other diseases that cause inflammation. ? The conditions are often treated with eye drops, cold compresses, and oral medicines to relieve theinflammation. This information is not intended to replace advice given to you by your health care provider. Make sure you discuss any questions you have with your health care provider. Document Revised: 2021 Document Reviewed: 2021 [employer] Patient Education ?? 2022 [employer] Patient/Settlement Processor Signature Patient Name:DEMETRICE GORDON I have received this information and my questions have been answered. Patient/Settlement Processor Name: Patient/Settlement Processor Signature: Relationship to Patient: Witness Name/Signature: Date: Electronically Signed on: 02/02/2024 20:16 EDTSigned by:STAN
--- OUTSIDE RECORDS SUMMARY | 2024-05-16 19:54 | XMS_ITS | Encounter Summary ---
Author Organization [facility] Address [address] [place] [id number] Care Team Providers Care Actuarial Clerk Name Role Phone Tim Kim MD Primary Care Provider [phone] Reason for Visit * Reason Onset Date Comments Medical Records 04/28/2024 Encounter Details Date Type Department Care Team (Late st Contact Info) Description 04/28/2024 Telephone [facility] Rheumatology [address] [place] [address] [id number] Alan Mann MBBS [address] [place] [address], [facility] [address] [place] [address] Medical Records Social History Tobacco Use Types Packs/Day Years Used Date Smoking Tobacco: Former Cigarettes Comments Unknown Sex and Gender Information Value Date Recorded Sex Assigned at Not on file Legal Sex Female 18:00 EST Gender Identity Not on file Sexual Orientation Not on file documented as of this encounter Functional Status * Because of a physical, mental, or emotional condition, does this person have difficulty doing errands alone such as visiting a doctor's office or shopping? Answer Date of Assessment Author Yes 04/28/2024 14:41 EDT documented as of this encounter Mental Status * Because of a physical, mental, or emotional condition, does this person have serious difficulty concentrating, remembering, or making decisions? Answer Entry Date Author Yes 04/28/2024 14:41 EDT documented in this encounter Miscellaneous Notes * Telephone Encounter - Rosemary Rice - 04/28/[address] Mann request: Requested Neurology records & EMG report from [facility] (Dr. Kiran) Requested brain MRI (02/02/24) and brain CT scan (01/31/24) imaging from [facility]. documented in this encounter Plan of Treatment Not on file documented as of this encounter Visit Diagnoses Not on filedocumented in this encounter Care Teams Actuarial Clerk Relationship Specialty Start Date End Date Tim Kim MD [address] [place] [address] PCP - General 09/03/21 documented as of this encounter
--- OUTSIDE RECORDS SUMMARY | 2024-05-16 19:54 | XMS_ITS | Encounter Summary ---
[place] [address] Care Team Providers Care Developer Advocate Name Role Phone Tim Kim MD Primary Care Provider [phone] Encounter Details Date Type Department Care Team [...] on filedocumented in this encounter Care Teams Developer Advocate Relationship Specialty Start Date End Date Tim Kim MD [address] [place] [address] PCP - General 05/28/10 documented as of this encounter
--- OUTSIDE RECORDS SUMMARY | 2024-05-16 19:54 | XMS_ITS | Clinical Summary ---
Author Organization [facility] Address [address] [place] [address] Care Team Providers Care Cat Sitter Name Role Phone Tim Kim MD Primary Care Provider [phone] Allergies Active Allergy Reactions Criticality Noted Date Comments Dextroamphetamine-Amph etamine Other (See Comments) 04/08/2024 Anger issues Codeine Itching 04/08/2024 Guanfacine Other (See Comments) 04/08/2024 Low BP & fainting episodes Paroxetine Hcl Swelling 04/08/2024 Penicillins Anaphylaxis High 04/08/2024 Medications erenumab-aooe (AIMOVIG AUTOINJECTOR) 140 mg/mL auto-injector Inject 1 mL into the skin every 28 days. Active cetirizine (ZYRTEC) 10 mg tablet Take 1 Tablet by mouth daily as needed. Active lamoTRIgine (LAMICTAL) 150 mg tablet Take 1 Tablet by mouth daily. Take one tablet by mouth daily monitor for rash Active lidocaine (XYLOCAINE) 2 % solution Take 15 mL by mouth every 3 hours. Active LORazepam (ATIVAN) 0.5 mg tablet Take 1 Tablet by mouth 3 times daily. Take one tablet by mouth as needed for anxiety/claustrop hobia, take one tablet by mouth 30 minutes before MRI, you make take a second pill at time of MRI Active water liquid 146 mL with magnesium [...] Take 1 Tablet by mouth daily. Active EMGALITY PEN 120 mg/mL injection INJECT 120MG SUBCUTANEOUSLY EVERY MONTH 09/03/19 24 Active levonorgestreL (MIRENA) 21 mcg/24hr (up to 8 yrs) 52 mg IUD 1 Each by intrauterine route. Active omeprazole (PRILOSEC) 20 mg capsule Take 1 Capsule by mouth daily. Active prednisoLONE (PRED FORTE) 1 % ophthalmic suspension INSTILL 1 DROP INTO THE LEFT EYE EVERY 3 TO 4 HOURS WHILE AWAKE (SHAKE BOTTLE WELL BEFORE USE) 02/03/20 24 Active NURTEC ODT 75 mg tablet,disintegrat ing DISSOLVE ONE TABLET BY MOUTH EVERY DAY NEEDED FOR MIGRAINE HEADACHE MAXIMUM DAILY DOSE = 1 06/19/20 23 Active sertraline (ZOLOFT) 100 mg tablet Take 1.5 Tablets by mouth daily. Active topiramate (TOPAMAX) 25 mg tablet Take 1 Tablet by mouth 2 times daily. Active UBRELVY 100 mg tablet TAKE ONE TABLET BY MOUTH ONCE A SINGLE DOSE; MAY REPEAT ONCE IN TWO HOURS IF NEEDED 04/06/20 24 Active Active Problems Problem Noted Date Diagnosed Date Chancroid 04/08/2024 Anemia 04/08/2024 Major depression 04/08/2024 Mood disorder ([facility]) 04/08/2024 Anxiety disorder 04/08/2024 [...] Encounters Date Type Department Care Team Description 04/28/2024 14:45 EDT Office Visit [facility] Rheumatology [address] [place] [id number] Alan Mann MBBS Arthralgia of both lower legs (Primary Dx) 04/28/2024 Telephone [facility] Rheumatology [address] [place] [id number] Alan Mann MBBS Medical Records 04/08/2024 Abstract [facility] Rheumatology [address] [place] [id number] Alan Mann MBBS from Last 3 Months [...] Former Cigarettes Tobacco Cessation:Counseling Given: Not Answered Comments Unknown Sex and Gender Information Value Date Recorded Sex Assigned at Not on file Legal Sex Female 18:00 EST Gender Identity Not on file Sexual Orientation Not on file Obstetrics History Last Filed Vital Signs Vital Sign Reading Time Taken Comments Blood Pressure 110/58 04/28/2024 1434 EDT Pulse 74 04/28/2024 1434 EDT Temperature 36.7 ??C (98.1 ??F) 04/28/2024 1434 EDT Respiratory Rate - - Oxygen Saturation 97% 04/28/2024 143 EDT Inhaled Oxygen Concentration - - Weight 66.3 kg (146 lb 3.2 oz) 04/28/2024 1434 E DT Height 157.5 cm (5' 2) 04/28/2024 1434 EDT Body Mass Index 26.74 04/28/2024 1434 EDT Plan of Treatment Health Maintenance Due Date [...] C Antibody Negative Negative 04/11/2021 10:07 EDT [facility] Blood VENOUS BLOOD / Unknown 04/10/2021 8:58 EDT 04/10/2021 16:25 EDT us Provider Outr Resulting Lab CHEMISTRY & BLOOD GA S ORDERABLES Final Result [facility] [address] [place] [address] from Last 3 Months or Most Recently Relevant to Health Maintenance Insurance [place] Care Teams Cat Sitter Relationship Specialty Start Date End Date Tim Kim MD [address] [place] [address] PCP - General 09/03/21
--- OUTSIDE RECORDS SUMMARY | 2024-05-16 19:54 | XMS_ITS | Continuity of Care Document ---
Author Organization [facility] Address [address] [place] [address] Encounter LTTL_AL FIN NBR [id number] Date(s): 09/03/22 - 09/03/[address] [address]- Encounter Diagnosis Encounter for other administrative examinations(Final) - Discharge Disposition: Home or Self Care Attending Physician: Jemma Muniz Admitting Physician: Jemma Muniz
--- OUTSIDE RECORDS SUMMARY | 2024-05-16 19:54 | XMS_ITS | Clinical Summary ---
Author Organization [facility] [place] [address] Care Team Providers Care Thermal Cutting Machine Operator Name Role Phone Tim Kim [...] PAP Smear 2022 Covid-19 Vaccine (1 - season) 2024 Influenza (Flu) vaccine (1 o f 1 - Influenza standard series) 03/06/2024 Care Teams Thermal Cutting Machine Operator Relationship Specialty Start Date End Date Tim Kim MD [address] [place] [address] PCP - General 05/28/10
--- OUTSIDE RECORDS SUMMARY | 2024-05-16 19:54 | XMS_ITS | Encounter Summary ---
Author Organization [facility] Address [address] [place] [address] Care Team Providers Care Product Support Sales Representative Name Role Phone Tim Kim MD Primary Care Provider [phone] Encounter Details Date Type Department Care Team (Late st Contact Info) Description 11/04/2023 Lab Requisition [facility] Pathology & Laboratory Medicine - [facility] [address] [place] [address] Outr Resulting Lab, Provider Social History Tobacco Use Types Packs/Day Years Used Date Smoking Tobacco: Never Assessed Comments Unknown Sex and Gender Information Value [...] Factor 10.5 <12.0 IU/mL 11/05/2023 0:15 EDT [facility] Blood VENOUS BLOOD / Unknown 11/04/2023 11:40 EDT 11/04/2023 21:29 EDT us Provider Outr Resulting Lab CHEMISTRY & BLOOD GA S ORDERABLES Final Result Performing Organization Address [facility]/ZIP Co de Phone Number [facility] [address] [place], [place] [id number] * SSA/SSB PANEL (11/04/2023 11:40 EDT) Ro52 Anitbody, IgG <2.3 <20.0 CU 2023 16:56 EDT [facility] Comment:Results were obtaine d with the NORCATA Flash Ro52 chemiluminescent immunoassay. Values obtained with different manufacturers' assay methods must not be used interchangeably. Ro60 Antibody, IgG <7.0 <20.0 CU 2023 16:56 EDT [facility] Comment:Results were obtaine d with the NORCATA Flash Ro60 chemiluminescent immunoassay. Values obtained with different manufacturers' assay methods must not be used interchangeably. SSB Antibody, IgG <3.3 <20.0 CU 024 16:56 EDT [facility] Comment:Results were obtaine d with the NORCATA Flash SS-B chemiluminescent immunoassay. Values obtained with different manufacturers' assay methods must not be used interchangeably. Blood VENOUS BLOOD / Unknown 11/04/2023 11:40 EDT 11/04/2023 21:29 EDT us Provider Outr Resulting Lab IMMUNOLOGY AND SEROL OGY ORDERABLES Final Result Performing Organization Address City/[facility]/ZIP Co de Phone Number [facility] [address] [place] [address] * ANTI NUCLEAR AB (SHIKHA), IFA (11/04/2023 11:40 EDT) SHIKHA Interpretation Negative Negative 2023 14:44 EDT [facility] Comment:No titer performed, SHIKHA Screen is negative. Blood VENOUS BLOOD / Unknown 11/04/2023 11:40 EDT 11/04/2023 21:29 EDT Narrative [facility] - 11/05/2023 14:44 EDT Results were obtained with the INOVA NOVA Lite HEp-2 SHIKHA Kit by indirect immunofluorescence. us Provider Outr Resulting Lab IMMUNOLOGY AND SEROL OGY ORDERABLES Final Result [facility] [address] [place] [address] documented in this encounter Visit Diagnoses Not on filedocumented in this encounter Care Teams Product Support Sales Representative Relationship Specialty Start Date End Date Tim Kim MD [address] [place], [place] [id number] PCP - General 09/03/21 documented as of this encounter
--- OUTSIDE RECORDS SUMMARY | 2024-05-16 19:54 | XMS_ITS | Encounter Summary ---
[place] [address] Care Team Providers Care Manager Of Security Name Role Phone Tim Kim MD Primary Care Provider Reason for Visit * Consultation (Routine) - Closed Specialty Diagnoses / Procedures Referred By Contac t Referred To Contact Neurology Diagnoses Pain in leg, unspecified Tim Kim MD [address] [place] [address] [facility] Neu[facility] [address] [place] [id number] Referral ID Status Reason Start Date Expiration Date V isits Requested Visits Authorized [id number] Closed Consult, Test & [facility] PCP Updated and/or Approved 07/23/2020 07/23/2021 6 6 Encounter Details Date Type Department Care Team (Latest Contact Info) Description 10/15/2020 1:00 PM EDT Procedure [place] [address] Samy Mckeon MD [facility] [place] [address] Bilateral leg paresthesia; Muscle pain [...] well as recent note from neurology at [facility]. Radha first noted pain in her [...] today. She ended up having evaluation in [place]. She had several lab tests per the [facility] neurology notes. This included unremarkable CBC, [...] toes downgoing to plantar stimulation. Coordination normal hkucyr-jiqx-rumlym and qwcc-pvgd-evej testing. Gait slow but no ataxia. Antalgic [...] set her up for that here at [facility] although we also discussed that even if positive it would otherwise not oil change technician likely. If it was positive further B [...] she like to have that done at [facility] in [facility] we could arrange that for her. I [...] this office visit is 45 minutes including [id number] time, chart review, and documentation. Time was exclusive of the time for EMG nerve conduction studies. This note was created with voice recognition software. documented in this encounter Plan of Treatment Not on file documented as of this encounter Visit Diagnoses Diagnosis Bilateral leg paresthesia Disturbance of skin sensation Muscle pain Mylagia and myositis, unspecified documented in this encounter Care Teams Manager Of Security Relationship Specialty Start Date End Date Tim Kim MD [address] [place] [address] PCP - General 05/28/10 documented as of this encounter
--- OUTSIDE RECORDS SUMMARY | 2024-05-16 19:54 | XMS_ITS | Encounter Summary ---
Author Organization [facility] [place] [address] Care Team Providers Care Carbon Cleaner Name Role Phone Tim Kim MD Primary Care Provider Encounter Details Date Type Department Care Team (Late st Contact Info) Description 10/15/2020 External [place] [address] Samy Mckeon MD [facility] [place] [address] Social History Tobacco Use Types Packs/Day Years [...] on filedocumented in this encounter Care Teams Carbon Cleaner Relationship Specialty Start Date End Date Tim Kim MD [address] [place] [address] PCP - General 05/28/10 documented as of this encounter
--- OUTSIDE RECORDS SUMMARY | 2024-05-16 19:54 | XMS_ITS | Encounter Summary ---
Author Organization [facility] Address [address] [place] [address] Care Team Providers Care Tank Wagon Operator Name Role Phone Tim Kim MD Primary Care Provider [phone] Reason for Visit * Reason Comments New Patient Visit Pain in leg, unspeci fied * Referral (Routine) - Authorization Not Required Specialty Diagnoses / Procedures [facility] Referred To Contact Rheumatology Diagnoses Pain in leg, unspecified Avis Koch FNP [address] [place] [address] Phone: tel: fax: [facility] [address] [place] [address] Phone: tel: fax: Referral ID Status Reason Start Date Expiration Date Visits Requested Visits Authorized [id number] Authorization Not Required 1 1 Encounter Details Date Type Department Care Team (Late st Contact Info) Description 04/28/2024 14:45 EDT Office Visit [facility] Rheumatology [address] [place] [address] Alan Mann MBBS [address] [facility] [address] [place] [address] Arthralgia of both lower legs (Primary Dx) Social History Tobacco Use Types Packs/Day Years Used Date Smoking Tobacco: Former Cigarettes Comments Unknown Sex and Gender Information Value Date Recorded Sex Assigned at Not on file Legal Sex Female 18:00 EST Gender Identity Not on file Sexual Orientation Not on file documented as of this encounter Last Filed Vital Signs Vital Sign Reading Time Taken Comments Blood Pressure 110/58 04/28/20241433 EDT Pulse 74 04/28/20241433 EDT Temperature 36.7 ??C (98.1 ??F) 04/28/20241433 EDT Respiratory Rate - - Oxygen Saturation 97% 04/28/20241433 EDT Inhaled Oxygen Concentration - - Weight 66.3 kg (146 lb 3.2 oz) 04/28/20241433 E DT Height 157.5 cm (5' 2) 04/28/20241433 EDT Body Mass Index 26.74 04/28/20241433 EDT documented in this encounter Functional Status * Because of [...] 04/28/2024 14:41 EDT documented in this encounter Progress Notes * Alan Mann MBBS - 04/28/2024 1445 EDT [facility] Rheumatology and Clinical Immunology Initial Patient Visit Chief Complaint: Chief Complaint Patient presents with New Patient Visit Pain in leg, unspecified Patient ID: Radha Schmidt Date of Service: 04/28/2024 Patient age: 33 y.o. Patient gender: female Subjective / HPI: aRdha Schmidt is an 33-year-old woman with a background of migraines, depression, anxiety, mood disorder, PTSD, ADHD, idiopathic peripheral sensory neuropathy, seborrheic dermatitis, insomnia, panic disorder, myofascial pain syndrome and chancroid who presented to [facility] rheumatology clinic for a new patient assessment. Ms. Schmidt presented to their PCP January 2024 with chronic leg pain. Symptoms associated with fatigue, dry eyes, lightheadedness and paresthesias involving arms and legs. CBC and CMP unremarkable. CK WNL. Mg, B12, folate, ferritin and iron studies WNL. SHIKHA, RF and SSA/SSB negative. A1c 4.9. TSH WNL TTG negative. MR head identified no evidence demyelinating disease. EMG normal (2020). Referred for evaluation of seronegative RA. On assessment today, Ms. Schmidt endorses an approximately 10-year history of insidious onset lowerextremity pain involving diffuse lower extremities. Symptoms poorly localized and sensation of tearing apart. Today reports arthralgia: - Fingers: No - Wrists: No - Elbows: No - Shoulders: No - Neck: No - Low back: No - Hips: Sometimes - Knees: No - Ankles: No - Feet/ toes: No Symptoms associated with 20 minutes of morning stiffness. Denies transient joint swelling, warmth or erythema. Symptoms exacerbated by activity and relieved by naproxen / acetaminophen. Duloxetine associated with fatigue. Gabapentin / pregabalin associated within minimal benefit but associated withfatigue. Pain is worst at the end of the day. ROS (+): Oral ulcers. Dry eyes. Myalgias. 18-month history of right foot drop (at rest). Other aspects of history: Always in pain: Yes Light sensitivity: Yes Sound sensitivity: Yes Migraine: Yes Dizziness/POTS: Yes Mood: Depression Sleep: Difficulty falling asleep and Difficulty maintaining sleep Post exertional malaise: Sometimes Brain fog: Sometimes Irregular bowel habits: Yes Review of Systems: Review of Systems: A complete 10 point ROS was performed and pertinent positive and negative findings listed in HPI, otherwise negative. Family History: - Denies family history of inflammatory arthritis or autoimmune conditions. Social History: - Grew up in [place]. Occupation: Works with [employer]. - Lives partner / 2 children - Vapes. Very rare ETOH use. Recreational drug use for 9 - 10 years. Current Outpatient Medications Medication cetirizine (ZYRTEC) 10 mg tablet EMGALITY PEN 120 mg/mL injection erenumab-aooe (AIMOVIG AUTOINJECTOR) 140 mg/mL auto-injector lamoTRIgine (LAMICTAL) 150 mg tablet levonorgestreL (MIRENA) 21 mcg/24hr (up to 8 yrs) 52 mg IUD lidocaine (XYLOCAINE) 2 % solution LORazepam (ATIVAN) 0.5 mg tablet naratriptan (AMERGE) 2.5 mg tablet Naratriptan 1 mg tablet NURTEC ODT 75 mg tablet,disintegrating omeprazole (PRILOSEC) 20 mg capsule prednisoLONE (PRED FORTE) 1 % ophthalmic suspension sertraline (ZOLOFT) 100 mg tablet topiramate (TOPAMAX) 25 mg tablet UBRELVY 100 mg tablet valACYclovir (VALTREX) 1 gram tablet vilazodone (VIIBRYD) 40 mg tablet water liquid 146 mL with magnesium hydroxide 400 mg/5 mL suspension 5 mL, diphenhydrAMINE 12.5 mg/5mL elixir 60 mg, nystatin 100,000 unit/mL suspension 500,000 Units No current facility-administered medications for this visit. Allergies Allergen Reactions Penicillins Anaphylaxis Adderall [Dextroamphetamine-Amphetamine] Other (See Comments) Anger issues Codeine Itching Guanfacine Other (See Comments) Low BP & fainting episodes Paxil [Paroxetine Hcl] Swelling PMH PSH History reviewed. No pertinent past medical history. Past Surgical History: Procedure Laterality Date TUBAL LIGATION Social History Family history Social History Tobacco Use Smoking status: Former Types: Cigarettes Smokeless tobacco: Not on file Substance Use Topics Alcohol use: Not on file Family History Problem Relation Age of Onset *Other(comment) Mother family history of hypercholesterolemia & hypertension *Other(comment) Maternal Grandmother family history of thyroid disorder, family history of heart failure *Other(comment) Maternal Grandfather family history of malignant neoplasm Throat cancer Maternal Grandfather *Other(comment) Daughter family history of acute medical disorder Autism Daughter DEL Daughter Objective: BP 110/58 (BP Cuff Location: Right arm, BP Patient Position: Sitting, BP Cuff Sizes: Adult, long) Pulse 74 Temp 36.7 ??C (98.1 ??F) (Tympanic) Ht 157.5 cm (62) Wt 66.3 kg (146 lb 3.2 oz) SpO2 97% BMI 26.74 kg/m?? Body mass index is 26.74 kg/m??. General: No acute distress. Alert, fully oriented. HEENT: Conjunctivae/corneas clear. Pupils equal, Sclerae anicteric. Mucus membranes moist; oropharynx clear. Neck symmetrical, trachea midline Lungs: Normal expansion. Clear to auscultation bilaterally with no crackles, crepitations or wheeze. Heart: Regular rate and rhythm, I + II present with no murmur Extremities: Extremities without cyanosis or edema. Skin: No rashes or lesions Musculoskeletal: Hand: No synovitis, muscle wasting or deformity. Full range of movement. Elbow: No tenderness on palpation of medial or lateral epicondyle. Normal range of motion. No nodules. Shoulder: No synovitis or swelling. Normal range of motion in shoulders bilaterally. Hip: No tenderness on palpation over anterior superior iliac crest, greater trochanter. No pain with log roll. ROM normal. Knee: No asymmetry, muscle wasting, scars or deformities. No joint effusions or swellings. No tenderness on palpation of femoral epicondyle or tibial tuberosity. Foot: No tenderness on palpation of the ankles or MTP joint bilaterally. Normal range of movement. Beighton score: 0/9 Workup: I have personally reviewed and the imaging / lab results Labs: - Reviewed Imaging: No results found. Assessment & Plan: Evaluation for seronegative RA: 10-year of diffuse poorly localized lower extremity pain. Rare kneearthralgia without prolonged morning stiffness or transient joint swelling. Symptoms exacerbated byweight bearing and worst at the end of the day. On examination no synovitis and normal ROM. SHIKHA, RFand SSA/SSB - Would not recommend DMARD therapy Diffuse lower extremity myalgias: migraine, low mood, insomnia, fatigue, brain fog and irregular bowel habit. TSH, B12 and folate wnl. EMG normal. - Request Neurology records from [facility] (Dr. Kiran) - Request EMG from [facility]. - Request MRI and CT-imaging from [facility]. Follow up as needed JULES Hernandez, 04/28/2024 15:44 I spent a total of 45 minutes on the date of this encounter meeting with the patient and reviewing documentation/coordinating care as described in the above note. No procedures were performed at the time of the visit. documented in this encounter Plan of Treatment Not on file documented as of this encounter Visit Diagnoses Diagnosis Arthralgia of both lower legs- Primary documented in this encounter Historical Medications * This list may reflect changes made after this encounter. UBRELVY 100 mg tablet TAKE ONE TABLET BY MOUTH ONCE A SINGLE DOSE; MAY REPEAT ONCE IN TWO HOURS IF NEEDED 04/06/2024 topiramate (TOPAMAX) 25 mg tablet Take 1 Tablet by mouth 2 times daily. sertraline (ZOLOFT) 100 mg tablet Take 1.5 Tablets by mouth daily. NURTEC ODT 75 mg tablet,disinteg rating DISSOLVE ONE TABLET BY MOUTH EVERY DAY NEEDED FOR MIGRAINE HEADACHE MAXIMUM DAILY DOSE = 1 06/19/2023 prednisoLONE (PRED FORTE) 1 % ophthalmic suspension INSTILL 1 DROP INTO THE LEFT EYE EVERY 3 TO 4 HOURS WHILE AWAKE (SHAKE BOTTLE WELL BEFORE USE) 02/03/2024 omeprazole (PRILOSEC) 20 mg capsule Take 1 Capsule by mouth daily. levonorgestreL (MIRENA) 21 mcg/24hr (up to 8 yrs) 52 mg IUD 1 Each by intrauterine route. EMGALITY PEN 120 mg/mL injection INJECT 120MG SUBCUTANEOUSLY EVERY MONTH 09/03/2023 added in this encounter Care Teams Tank Wagon Operator Relationship Specialty Start Date End Date Tim Kim MD [address] [place] [address] PCP - General 09/03/21 documented as of this encounter
--- OUTSIDE RECORDS SUMMARY | 2024-05-16 19:54 | XMS_ITS | Encounter Summary ---
Author Organization [facility] Address [address] [place] [address] Care Team Providers Care Diamond Powder Technician Name Role Phone Tim Kim MD Primary Care Provider [phone] Encounter Details Date Type Department Care Team (Late st Contact Info) Description 11/03/2023 Lab Requisition [facility] Pathology & Laboratory Medicine - [address] [address] Outr Resulting Lab, Provider Social History Tobacco [...] 1, PCR Negative Negative 11/04/2023 9:44 EDT [facility] Herpes Simplex Virus Molecular Detection 2, PCR Negative Negative 11/04/2023 9:44 EDT [facility] Swab ABSCESS MORPHOLOGY / Unknown 11/02/2023 17:25 EDT 11/03/2023 17:42 EDT us Provider Outr Resulting Lab MICROBIOLOGY - GENER AL ORDERABLES Final Result [facility] [address] [place] [address] documented in this encounter Visit Diagnoses Not on filedocumented in this encounter Care Teams Diamond Powder Technician Relationship Specialty Start Date End Date Tim Kim MD [address] [place], [place] [id number] PCP - General 09/03/21 documented as of this encounter
--- OUTSIDE RECORDS SUMMARY | 2024-05-16 19:54 | XMS_ITS | Encounter Summary ---
Author Organization [facility] [place] [address] Care Team Providers Care Clinic Cma Name Role Phone Tim Kim MD Primary Care Provider [phone] Reason for Visit * Reason Comments Eye Problem Severe eye pain, p ressure, and bluriness OS. Encounter Details Date Type Department Care Team (Late st Contact Info) Description 02/05/2024 11:00 AM EDT Office Visit Ophthalmology at [facility] [place] [address] Daniel Figueroa MD [facility] [place] [address] Pain of left eye; Blurry vision, left [...] Kiran neurology, and Dr. Avis Koch at [facility]), complaining of episode of migraine starting 01/27/24. Presented to ED at [facility] where CT head, CTA brain and neck, MRI brain and orbits were all negative for optic neuritis or intracranial process. Seen by Dr. Kumar, PRABHJOT who felt it may be scleritis vs optic neuritis. Started on prednisolone drops without relief, advanced to solumedrol infusions (has received 2x with plans for one more tomorrow). Presented again to ED ([facility]) last night after two episodes of syncope, felt to be vasovagal reaction secondary to pain. ED provider referred her to [facility], though did not make an e ffort [...] Eye care as well as ophthalmology at [facility] as needed. Dr. Kumar, OD notes that they have a 24hr call with an care management specialist and this would be more convenient for [...] -- Ady Mendez MD PGY-2 Ophthalmology Pager #[phone] I saw the patient with the following [...] disturbances documented in this encounter Care Teams Clinic Cma Relationship Specialty Start Date End Date Tim Kim MD [address] [place] [address] PCP - General 05/28/10 documented as of this encounter
--- OUTSIDE RECORDS SUMMARY | 2024-05-16 19:54 | XMS_ITS | Referral Summary ---
Author Organization [facility] Address [address] [place] [address] Care Team Providers Care Waste Reduction Coordinator Name Role Phone Tim Kim MD Primary Care Provider Encounters Date Type Department Care Team Description 04/28/2024 Telephone [facility] Rheumatology [address] [place] [address] Alan Mann MBBS Medical Records 04/28/2024 14:45 EDT Office Visit [facility] Rheumatology [address] [place] [address] Alan Mann MBBS Arthralgia of both lower legs (Primary Dx) 04/08/2024 Abstract [facility] Rheumatology [address] [place] [address] Alan Mann MBBS from Last 3 Months [...] Anemia 04/08/2024 Major depression 04/08/2024 Mood disorder ([facility]) 04/08/2024 Anxiety disorder 04/08/2024 [...] EDT Body Mass Index 26.74 04/28/20241433 EDT Functional Status * Because of a physical, mental, or emotional condition, does this person have difficulty doing errands alone such as visiting a doctor's office or shopping? Answer Date of Assessment Author Yes 04/28/2024 14:41 EDT Mental Status * Because of a physical, mental, or emotional condition, does this person have serious difficulty concentrating, remembering, or making decisions? Answer Entry Date Author Yes 04/28/2024 14:41 EDT Plan of Treatment Not on file Procedures Procedure Name Priority Date/Time Associated Diagnosis [...] & BLOOD GA S ORDERABLES Final Result [facility] [address] [place] [address] from Last 3 Months or Most Recently Relevant to Health Maintenance [place] Care Teams Waste Reduction Coordinator Relationship Specialty Start Date End Date Tim Kim MD [address] [place] [address] PCP - General 09/03/21
--- OUTSIDE RECORDS SUMMARY | 2024-05-16 19:54 | XMS_ITS | Encounter Summary ---
Author Organization [facility] Address [address] [place] [address] Care Team Providers Care Molding Cutter Name Role Phone Tim Kim MD Primary Care Provider [phone] Encounter Details Date Type Department Care Team (Late st Contact Info) Description 04/08/2024 Abstract [facility] Rheumatology [address] [place] [address] Alan Mann MBBS [address] [place] [address] [address] [place] [address] Social History Tobacco Use Types Packs/Day [...] may reflect changes made after this encounter. vilazodone (VIIBRYD) 40 mg tablet Take 1 [...] one tablet by mouth as needed for anxiety/vilma trophobia, take one tablet by mouth 30 minutes before MRI, you make take a second pill at time of MRI lidocaine (XYLOCAINE) 2 % solution Take 15 mL by mouth every 3 hours. lamoTRIgine (LAMICTAL) 150 mg tablet Take 1 Tablet by mouth daily. Take one tablet by mouth daily monitor for rash cetirizine (ZYRTEC) 10 mg tablet Take 1 Tablet by mouth daily as needed. erenumab-aooe (AIMOVIG AUTOINJECTOR) 140 mg/mL auto-injector Inject 1 mL into the skin every 28 days. added in this encounter Care Teams Molding Cutter Relationship Specialty Start Date End Date Tim Kim MD [address] [place] [address] PCP - General 09/03/21 documented as of this encounter
--- OUTSIDE RECORDS SUMMARY | 2024-05-16 19:55 | XMS_ITS | Encounter Summary ---
Author Organization [facility] Address [address] [place] [address] Care Team Providers Care Carbon Setter Name Role Phone Unknown, Provider Primary Care Provider Tim Wagner MD Primary Care Provider [phone] Encounter Details Date Type Department Care Team (Late st Contact Info) Description 07/27/2020 Lab Requisition [facility] Pathology & Laboratory Medicine - [address] [address] Outr Resulting Lab, Provider Social History Tobacco [...] gonorrhoeae Result Negative Negative 07/30/2020 14:21 EST [facility] Chlamydia trachomatis Result Negative Negative 07/30/2020 14:21 EST [facility] Swab ENTIRE WALL OF CERVIX / Unknown 07/27/2020 11:25 EST 07/27/2020 22:04 EST us Provider Outr Resulting Lab MICROBIOLOGY - GENER AL ORDERABLES Final Result [facility] [address] [place] [address] documented in this encounter Visit Diagnoses Not on filedocumented in this encounter Care Teams Carbon Setter Relationship Specialty Start Date End Date Unknown, Provider, PCP - General 04/13/13 09/02/21 Tim Kim MD [address] [place] [address] PCP - General 09/03/21 documented as of this encounter
--- OUTSIDE RECORDS SUMMARY | 2024-05-16 19:55 | XMS_ITS | Encounter Summary ---
Author Organization [facility] Address [address] [place] [address] Care Team Providers Care Veneer Slicing Machine Operator Name Role Phone Unknown, Provider Primary Care Provider Tim Wagner MD Primary Care Provider [phone] Encounter Details Date Type Department Care Team (Late st Contact Info) Description 06/15/2020 Lab Requisition [facility] Pathology & Laboratory Medicine - [address] [address] Outr Resulting Lab, Provider Social History Tobacco [...] - [facility] COVID TEST (06/14/2020 11:30 EST) COVID-19 rt-PCR Result NEGATIVE Negative 06/17/2020 14:27 EST [facility] Comment: 2019-novel Coronavirus (2019-nCoV) not detected [...] in accordance with CLIA regulations, College of [employer] [employer] (CAP) guidelines (Sep 22, 2019), and FDA guidance (Sep 03, 2019). This test is only for use under the Food and Drug Administration's Emergency Use Authorization. Swab ENTIRE NASOPHARYNX / Unknown 06/14/2020 11:30 EST 06/15/2020 15:53 EST us Provider Outr Resulting Lab MICROBIOLOGY - GENER AL ORDERABLES Final Result [facility] [place] [facility] [place] * COVID-19 TESTING (06/14/2020 11:30 EST) COVID-19 rt-PCR Result NEGATIVE Negative 06/17/2020 16:45 EST [facility] [place] [facility] Comment: 2019-novel Coronavirus (2019-nCoV) not detected [...] in accordance with CLIA regulations, College of [place] [employer]ologists (CAP) guidelines (Sep 22, 2019), and FDA guidance (Sep 03, 2019). This test is only for use under the Food and Drug Administration's Emergency Use Authorization. Performing Lab [facility] [place] 06/17/2020 16:45 EST [facility] Swab 06/14/2020 11:3 0 EST 06/15/2020 15:53 EST us Provider Outr Resulting Lab MICROBIOLOGY - GENER AL ORDERABLES Final Result [facility] [address] [place] [address] [facility] [place] documented in this encounter Visit Diagnoses Not on filedocumented in this encounter Care Teams Veneer Slicing Machine Operator Relationship Specialty Start Date End Date Unknown, Provider, PCP - General 04/13/13 09/02/21 Tim Kim MD [address] [place] [address] PCP - General 09/03/21 documented as of this encounter
--- OUTSIDE RECORDS SUMMARY | 2024-05-16 19:55 | XMS_ITS | Encounter Summary ---
Author Organization [facility] Address [address] [place] [address] Care Team Providers Care Furnace Loader Name Role Phone Unknown, Provider Primary Care Provider Tim Wagner MD Primary Care Provider [phone] Encounter Details Date Type Department Care Team (Late st Contact Info) Description 04/10/2021 Lab Requisition [facility] Pathology & Laboratory Medicine - [address] [address] Outr Resulting Lab, Provider Social History Tobacco [...] Surface Ag Negative Negative 04/11/2021 9:[address] [facility] Blood VENOUS BLOOD / Unknown 04/10/2021 8:58 EDT 04/10/2021 16:25 EDT us Provider Outr Resulting Lab CHEMISTRY & BLOOD GA S ORDERABLES Final Result Performing Organization Address City/[facility]/ZIP Co de Phone Number [facility] [address] [place] [address] * HEPATITIS C AB W REFLEX TO HCV RNA BY PCR (04/10/2021 8:58 EDT) Hep C Antibody Negative Negative 04/11/2021 10:[address] [facility] Blood VENOUS BLOOD / Unknown 04/10/2021 8:58 EDT 04/10/2021 16:25 EDT us Provider Outr Resulting Lab CHEMISTRY & BLOOD GA S ORDERABLES Final Result Performing Organization Address [facility] Co de Phone Number [facility] [address] [place] [address] documented in this encounter Visit Diagnoses Not on filedocumented in this encounter Care Teams Furnace Loader Relationship Specialty Start Date End Date Unknown, Provider, PCP - General 04/13/13 09/02/21 Tim Kim MD [address] [place] [address] PCP - General 09/03/21 documented as of this encounter
--- OUTSIDE RECORDS SUMMARY | 2024-05-16 19:55 | XMS_ITS | Encounter Summary ---
Author Organization [facility] Address [address] [place] [address] Care Team Providers Care Pull Over Name Role Phone Unknown, Provider Primary Care Provider Tim Wagner MD Primary Care Provider [phone] Encounter Details Date Type Department Care Team (Late st Contact Info) Description 04/05/2021 Lab Requisition [facility] Pathology & Laboratory Medicine - [address] [address] Outr Resulting Lab, Provider Social History Tobacco [...] gonorrhoeae Result Negative Negative 04/08/2021 16:07 EDT [facility] Chlamydia trachomatis Result Negative Negative 04/08/2021 16:07 EDT [facility] Swab ENTIRE WALL OF CERVIX / Unknown 04/04/2021 14:15 EDT 04/05/2021 18:45 EDT us Provider Outr Resulting Lab MICROBIOLOGY - GENER AL ORDERABLES Final Result [facility] [address] [place] [address] documented in this encounter Visit Diagnoses Not on filedocumented in this encounter Care Teams Pull Over Relationship Specialty Start Date End Date Unknown, Provider, PCP - General 04/13/13 09/02/21 Tim Kim MD [address] [place] [address] PCP - General 09/03/21 documented as of this encounter
--- OUTSIDE RECORDS SUMMARY | 2024-05-16 19:55 | XMS_ITS | Encounter Summary ---
Author Organization [facility] Address [address] [place] [address] Care Team Providers Care Malted Milk Supervisor Name Role Phone Unknown, Provider Primary Care Provider Unava ilable Encounter Details Date Type Department Care Team (Late st Contact Info) Description 12/25/2016 Results Only [facility] [phone] Damien Hilton, [facility]- [address] [place] [address] Social History Tobacco Use Types [...] ? RADHA SCHMIDT ? Accession #: ? [id number] : ? 1990 (Age: 26) ??F ?Collect Date: ? 12/25/2016 Location: ? [facility] ? Receive Date: ? 12/29/2016 Provider: ?DAMIEN APODACA DERRICK ENGINEER-BC Copy to: ? Specimen/Source: ?Pap Test, Cervix, ThinPrep Imaging System with manual evaluation Last Menstrual Period: ? SPECIMEN ADEQUACY ? Satisfactory for Evaluation - transformation zone component absent GENERAL CATEGORIZATION ? Negative for Intraepithelial Lesion or Malignancy ? Document reviewed and electronically signed by: ? Criss Crooks, CT(ASCP) ? Report Date: ??01/08/2017 08:56 End of Report [facility] 12/25/2016 12/29/2016 us Damien Hilton DERRICK ENGINEER-BC PATHOLOGY ORDERABLES Fin al Result [facility] [address] [place] [address] documented in this encounter Visit Diagnoses Not on filedocumented in this encounter Care Teams Malted Milk Supervisor Relationship Specialty Start Date End Date Unknown, Provider, PCP - General 04/13/13 09/02/21 documented as of this encounter
--- OUTSIDE RECORDS SUMMARY | 2024-05-16 19:55 | XMS_ITS | Encounter Summary ---
Author Organization [facility] Address [address] [place] [address] Care Team Providers Care Flight Line Mechanic Name Role Phone Tim Kim MD Primary Care Provider [phone] Encounter Details Date Type Department Care Team (Late st Contact Info) Description 01/09/2022 Lab Requisition [facility] Pathology & Laboratory Medicine - [facility] [address] [place] [address] Griselda Alonso MD [address] [place] [phone] Encounter for sterilization Social History Tobacco Use [...] explore management options, if applicable. 01/13/2022 14:36 EDT [facility] Final Diagnosis A. FALLOPIAN TUBE, LEFT, PARTIAL SALPINGECTOMY: - Segment of fallopian tube with no specific pathologic features. - Full cross-sections identified. B. FALLOPIAN TUBE, RIGHT, PARTIAL SALPINGECTOMY: - Segment of fallopian tube with no specific pathologic features. - Full cross-sections identified. 01/13/2022 14:36 [facility] Attestation There was significant resident/fellow involvement in the diagnostic evaluation of this case. By the signature below, the attending physician certifies that they have personally conducted a gross and/or microscopic examination of the described specimens and rendered or confirmed the above diagnosis. 01/13/2022 14:36 [facility] at 1436 Clinical History Desires sterilization 01/13/2022 14:36 [facility] Gross Description A. Received in formalin labelled with proper patient identification (initials N, S) and left fallopian tube are 2 segments of ott-case, tubular tissue (1.5 cm in length by 0.3 cm in diameter and 5.2 cm in length by 0.4 cm in diameter). The serosal surfaces are smooth and ott-case. No fimbria are present. Three international sales representative sections are submitted in A1. B. Received in formalin labelled with proper patient identification (initials N, S) and right fallopian tube is a 5.7 cm in length by 0.5 cm in diameter fimbriated fallopian tube. The serosa is smooth and purple-case. Sectioning reveals a patent, unremarkable lumen. Cloud Services Architect sections, to include the bisected fimbria, are submitted in B1-B2. LIZ DOW(ASCP) 01/09/2022 10:02 01/13/2022 14:36 [facility] Resident/Tony w: Florina Lewis DO 01/13/2022 14:36 [facility] Performing Lab [facility] 01/13/2022 14:36 [facility] Scanned Images 01/13/2022 14:36 [facility] Tissue ENTIRE FALLOPIAN TUBE / Unknown 01/08/2022 11:40 EDT 01/09/2022 6:40 EDT Tissue specimen (specimen) FALLOPIAN TUBE STRUCTURE / Unknown 01/08/2022 11:40 EDT 01/09/2022 6:40 EDT us Griselda Alonso MD PATHOLOGY ORDERABLES Final R esult [facility] [address] [place] [address] documented in this encounter Visit Diagnoses Diagnosis Encounter for sterilization Sterilization documented in this encounter Care Teams Flight Line Mechanic Relationship Specialty Start Date End Date Tim Kim MD [address] [place] [address] PCP - General 09/03/21 documented as of this encounter
--- OUTSIDE RECORDS SUMMARY | 2024-05-16 19:55 | XMS_ITS | Encounter Summary ---
Author Organization [facility] Address [address] [place] [address] Care Team Providers Care Taker Out Name Role Phone Unknown, Provider Primary Care Provider Unava ilable Encounter Details Date Type Department Care Team (Late st Contact Info) Description 04/13/2013 Results Only [facility] - [facility] ([address] [address] Unknown, Provider, Social History Tobacco Use Types [...] [facility] 04/13/2013 16:0 3 EDT us Provider Unknown MD BLOOD BANK TESTS Final Resul t [facility] [address] [place] [address] documented in this encounter Visit Diagnoses Not on filedocumented in this encounter Care Teams Taker Out Relationship Specialty Start Date End Date Unknown, Provider, PCP - General 04/13/13 09/02/21 documented as of this encounter
--- OUTSIDE RECORDS SUMMARY | 2024-05-16 19:55 | XMS_ITS | Encounter Summary ---
Author Organization [facility] Address [address] [place] [address] Care Team Providers Care Viticulturist Name Role Phone Tim Kim MD Primary Care Provider [phone] Encounter Details Date Type Department Care Team (Late st Contact Info) Description 10/21/2021 Lab Requisition [facility] Pathology & Laboratory Medicine - [facility] [address] [place] [address] Leilani Hampton, CHAIR CAR ATTENDANT [address] [place] [phone] Encounter for other general examination Social History [...] EDT) Screen Test NEGATIVE 022 17:54 EDT [facility] Comment:CALLED RESULTS ARUN AT [facility] 10/21/21 @ 17:50. FAXED TO LAB @ [phone] Blood VENOUS BLOOD / Unknown 10/21/2021 6:30 EDT 10/21/2021 17:14 EDT us Leilani ANTHONYN BLOOD BANK TESTS Final Re sult [facility] [address] [place] [address] documented in this encounter Visit Diagnoses Diagnosis Encounter for other general examination documented in this encounter Care Teams Viticulturist Relationship Specialty Start Date End Date Tim Kim MD [address] [place] [address] PCP - General 09/03/21 documented as of this encounter
--- OUTSIDE RECORDS SUMMARY | 2024-05-16 19:55 | XMS_ITS | Encounter Summary ---
Author Organization [facility] Address [address] [place] [address] Care Team Providers Care Rag Room Supervisor Name Role Phone Unknown, Provider Primary Care Provider Tim Wagner MD Primary Care Provider [phone] Encounter Details Date Type Department Care Team (Late st Contact Info) Description 07/20/2020 Lab Requisition [facility] Pathology & Laboratory Medicine - [address] [address] Outr Resulting Lab, Provider Social History Tobacco [...] 7.3 6.3 - 8.2 g/dL 07/23/2020 12:38 EST [facility] Albumin % 61.2 55.8 - 66.1 % 07/23/2020 12:38 EST [facility] Alpha-1 % 4.3 2.9 - 4.9 % 07/23/2020 12:38 [facility] Alpha-2 % 10.1 7.1 - 11.8 % 07/23/2020 12:38 [facility] Beta % 9.9 8.4 - 13.1 % 07/23/2020 12:38 [facility] Gamma % 14.5 11.1 - 18.8 % 07/23/2020 12:38 [facility] SPEP Comment No apparent monoclonal protein seen on serum electrophoresis 07/23/2020 12:38 [facility] Comment:See scanned/suppleme ntary report. Blood VENOUS BLOOD / Unknown 07/20/2020 10:45 EST 07/20/2020 21:02 EST us Provider Outr Resulting Lab CHEMISTRY & BLOOD GA S ORDERABLES Final Result Performing Organization Address City/State/[facility] Co de Phone Number [facility] [address] [place] [address] documented in this encounter Visit Diagnoses Not on filedocumented in this encounter Care Teams Rag Room Supervisor Relationship Specialty Start Date End Date Unknown, Provider, PCP - General 04/13/13 09/02/21 Tim Kim MD [address] [place], [place] [id number] PCP - General 09/03/21 documented as of this encounter
--- OUTSIDE RECORDS SUMMARY | 2024-05-16 19:55 | XMS_ITS | Encounter Summary ---
Author Organization [facility] Address [address] [place] [address] Care Team Providers Care Salvage Diver Name Role Phone Tim Kim MD Primary Care Provider [phone] Encounter Details Date Type Department Care Team (Late st Contact Info) Description 10/21/2021 Lab Requisition [facility] Pathology & Laboratory Medicine - [address] [address] Jerica Hernandez [address] [place] [address] [place] [id number] Encounter for other general examination Social History [...] explore management options, if applicable. 10/30/2021 16:27 EDT [facility] Final Diagnosis A. PLACENTA: [...] - No significant histopathologic changes. 10/30/2021 16:27 EDT [facility] Diagnosis Comment Diagnostic rangel [...] ration of smooth muscle. Sandoval MATHIAS, Edith Arenas. (2020). [place] of Placental Pathology. AFIP Atlases of Tumor and non-Tumor Pathology (Series 5). [place]ology; [place], [place]. Adapted from Nestor RW, Shubham O, Carolina D, Frances F, Magalie V, Corey C; Society for Pediatric Pathology, Section, Amniotic Fluid Infection Nosology Committee. 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 Pediatr Dev Pathol. 2002-Apr;6(5):435-4 8. 10/30/2021 16:27 [facility] Attestation By the signature below, the attending physician certifies that they have 1) personally conducted a gross and/or microscopic examination of the described specimen(s), and/or personally interpreted the results of laboratory testing of the described specimen(s), and 2) personally rendered or confirmed the above diagnosis. 10/30/2021 16:27 [facility] at 1627 Clinical History Active labor, 38.6 weeks 10/30/2021 16:27 [facility] Gross [...] and has a partly gelatinous cut surface. Steam Hand sections are submitted as follows: BLOCK RANGEL [...] LIZ ASHLEY(ASCP) 10/22/2021 14:27 10/30/2021 16:27 EDT [facility] Performing Lab [facility] 16:27 EDT [facility] Scanned Images 10/30/2021 16:27 EDT [facility] Tissue PLACENTAL STRUCTURE / Unknown 10/20/2021 21:46 EDT 10/21/2021 17:21 EDT Jerica Hernandez PATHOLOGY ORDERABLES Final Resul t Performing Organization Address City/State/[facility] Co de Phone Number [facility] [address] [place] [address] documented in this encounter Visit Diagnoses Diagnosis Encounter for other general examination documented in this encounter Care Teams Salvage Diver Relationship Specialty Start Date End Date Tim Kim MD [address] [place], [place] [id number] PCP - General 09/03/21 documented as of this encounter
--- OUTSIDE RECORDS SUMMARY | 2024-05-16 19:55 | XMS_ITS | Encounter Summary ---
Author Organization [facility] Address [address] [place] [address] Care Team Providers Care Hydroelectric Plant Mechanical Engineer Name Role Phone Unknown, Provider Primary Care Provider Tim Wagner MD Primary Care Provider [phone] Encounter Details Date Type Department Care Team (Late st Contact Info) Description 12/17/2020 Lab Requisition [facility] Pathology & Laboratory Medicine - [address] [id number] Pam Means MD [address] [facility], [address] [place] [address] Encounter for other general examination [...] System with Manual Evaluation 12/25/2020 10:17 EDT [facility] Specimen Adequacy Satisfactory for Evaluation - transformation zone component present 12/25/2020 10:17 EDT [facility] General Categorization Negative for intraepithelial lesion or malignancy 12/25/2020 10:17 EDT [facility] Attestation . 12/25/2020 10:17 T [facility] at 1017 Clinical History See below 12/26/19 10:17 EDT [facility] Performing Lab [facility] 12/25/2020 10:17 EDT [facility] Scanned Images 12/25/2020 10:17 EDT [facility] Papanicolaou smear specimen (specimen) CERVIX UTERI STRUCTURE / Unknown 12/14/2020 9:10 EDT 12/17/2020 15:30 EDT us Pam Means MD PATHOLOGY ORDERABLES Adelina cardoza Result [facility] [address] [place] [address] documented in this encounter Visit Diagnoses Diagnosis Encounter for other general examination documented in this encounter Care Teams Hydroelectric Plant Mechanical Engineer Relationship Specialty Start Date End Date Unknown, Provider, PCP - General 04/13/13 09/02/21 Tim Kim MD [address] [place] [address] PCP - General 09/03/21 documented as of this encounter
--- OUTSIDE RECORDS SUMMARY | 2024-05-16 19:55 | XMS_ITS | Encounter Summary ---
Author Organization [facility] Address [address] [place] [address] Care Team Providers Care Fairing Worker Name Role Phone Unknown, Provider Primary Care Provider Tim Wagner MD Primary Care Provider [phone] Encounter Details Date Type Department Care Team (Late st Contact Info) Description 04/10/2021 Lab Requisition [facility] Pathology & Laboratory Medicine - [address] [address] Outr Resulting Lab, Provider Social History Tobacco [...] 4th Generation Negative Negative 04/11/2021 10:18 EDT [facility] Comment: If acute HIV-1 infection is suspected in a high risk ??patient, submit plasma specimen for HIV-1 RNA quantitation test. Fourth Generation assay performed on the Siemens ImpulseFlyeraur. Blood VENOUS BLOOD / Unknown 04/10/2021 8:58 EDT 04/10/2021 16:24 EDT us Provider Outr Resulting Lab IMMUNOLOGY AND SEROL OGY ORDERABLES Final Result [facility] [address] [place] [address] documented in this encounter Visit Diagnoses Not on filedocumented in this encounter Care Teams Fairing Worker Relationship Specialty Start Date End Date Unknown, Provider, PCP - General 04/13/13 09/02/21 Tim Kim MD [address] [place], [place] [id number] PCP - General 09/03/21 documented as of this encounter
--- OUTSIDE RECORDS SUMMARY | 2024-05-16 19:55 | XMS_ITS | Encounter Summary ---
Author Organization [facility] Address [address] [place] [address] Care Team Providers Care Limnology Teacher Name Role Phone Unknown, Provider Primary Care Provider Tim Wagner MD Primary Care Provider [phone] Encounter Details Date Type Department Care Team (Late st Contact Info) Description 02/07/2020 Lab Requisition [facility] Pathology & Laboratory Medicine - [address] [address] Outr Resulting Lab, Provider Social History Tobacco [...] Priority Date/Time Associated Diagnosis Comments ZZCOVID-19 TEST [facility] PCR Today 02/07/2020 17:18 EDT COVID-19 TESTING Routine 02/07/2020 17:1 8 EDT documented in this encounter Results * COVID-19 TEST [facility] PCR (02/07/2020 17:18 EDT) Swab ENTIRE NASOPHARYNX / Unknown 02/07/2020 17:18 EDT 02/07/2020 21:23 EDT us Provider Outr Resulting Lab MICROBIOLOGY - GENER AL ORDERABLES Final Result [facility] [address] [place] [address] * COVID-19 TESTING (02/07/2020 17:18 EDT) COVID-19 rt-PCR Result Negative Negative 02/08/2020 1:12 EDT [facility] Comment: This test has [...] history, and epidemiological information. Performed on the [employer] Fusion instrument Performing Lab [facility] 02/08/2020 1:12 EDT [facility] Swab 02/07/2020 17:1 8 EDT 02/07/2020 21:23 EDT us Provider Outr Resulting Lab MICROBIOLOGY - GENER AL ORDERABLES Final Result [facility] [address] [place] [address] documented in this encounter Visit Diagnoses Not on filedocumented in this encounter Care Teams Limnology Teacher Relationship Specialty Start Date End Date Unknown, Provider, PCP - General 04/13/13 09/02/21 Tim Kim MD [address] [place] [address] PCP - General 09/03/21 documented as of this encounter
--- OUTSIDE RECORDS SUMMARY | 2024-05-16 19:55 | XMS_ITS | Encounter Summary ---
Author Organization [facility] Address [address] [place] [address] Care Team Providers Care Assembler Piano Name Role Phone Unknown, Provider Primary Care Provider Tim Wagner MD Primary Care Provider [phone] Encounter Details Date Type Department Care Team (Late st Contact Info) Description 04/10/[address] [facility] Pathology & Laboratory Medicine - [address] [address] Outr Resulting Lab, Provider Social History Tobacco [...] See Note 04/11/2021 10:[address] [facility] Comment:Presence of detectab le Varicella Zoster virus IgG antibodies. Blood VENOUS BLOOD / Unknown 04/10/2021 8:58 EDT 04/10/2021 16:24 EDT us Provider Outr Resulting Lab IMMUNOLOGY AND SEROL OGY ORDERABLES Final Result Performing Organization Address [facility] Co de Phone Number [facility] [address] [place] [address] * RUBELLA IGG ANTIBODY (04/10/2021 8:58 EDT) Rubella IgG Ab Negative See Note 04/11/2021 10:[address] [facility] Comment:Sample is considered negative [...] 16:24 EDT us Provider Outr Resulting Lab CHEMISTRY & BLOOD GA S ORDERABLES Final Result Performing Organization Address [facility] Co de Phone Number [facility] [address] [place] [address] documented in this encounter Visit Diagnoses Not on filedocumented in this encounter Care Teams Assembler Piano Relationship Specialty Start Date End Date Unknown, Provider, PCP - General 04/13/13 09/02/21 Tim Kim MD [address] [place] [address] PCP - General 09/03/21 documented as of this encounter
[2024-05-16 19:56] VITALS: BP 126/85; PULSE 86; RESP 20; TEMP 36.8; O2SAT 98
--- NOTE | 2024-05-16 20:55 | ED.GENADUL_ITS ---
Discharge Plan Disposition Patient Disposition: Home Condition: Good Discharge Details Clinical Impression: Muscle spasm Primary Care Provider: Avis Koch ED Provider: Sybil Eng Home Meds and New Rx's Prescriptions: New cyclobenzaprine 10 mg tablet 10 mg PO TID PRNQty: 7 0RF Continued lamotrigine 100 mg tablet 150 mg PO DAILY Ubrelvy 100 mg tablet 100 mg PO ONCE Qty: 16 5RF Rx Instructions: as a single dose; may repeat once in >=2 hours after first dose if needed Aimovig Autoinjector 140 mg/mL auto-injector 140 mg subcut QMONTH Qty: 3 3RF Viibryd 10 mg (7)- 20 mg (23) tablets,dose pack 40 dose pk PO DIRECTED Patient Comments: TAKE ONE BY MOUTH EVERY DAY WITH FOOD Discharge Instructions Instructions: Muscle Spasm ED Additional Instructions: Tylenol, naproxen, and lidocaine patches over the counter for pain; follow the directions on the package. You can take cyclobenzaprine up to every 8 hours as needed for muscle spasm. Do not take this prior to driving as it can make you sleepy. Call your primary care doctor today to schedule an appointment to followup on your visit here. Return to the emergency department for new or worsening symptoms including new/different/worse pain, inability to move your neck, or if you have any other concerns. Stand Alone Forms: Work Release Referrals: Avis Koch [Primary Care Provider] - [facility] General Mode of arrival: ambulatory . Date/Time Provider Initiated Documentation: 05/16/24 19:52 . Limitations to Documentation: no limitations . Information obtained by: patient . HPI Narrative: 33yo F presenting with acute right sided neck pain, onset 4 days ago. Noted it when she woke up in the morning. Since then has been getting worse, now 'burning' and severe. Unrelieved by home naproxen. Worse gao she moves her head. Radiates down into her back. Otherwise in her usual state of health with no fevers, chills, rash, nausea, vomiting, headache, numbness, tingling, weakness, cough, rhinnorhea, or other concerns. Related Data Home Medications ?Medication ?Instructions ?Recorded ?Confirmed lamotrigine 100 mg tablet 150 mg PO DAILY 03/25/23 05/16/24 vilazodone 10 mg (7)-20 mg (23) 40 dose pk PO DIRECTED 03/25/23 05/16/24 tablets in a titration pack (Viibryd) erenumab-aooe 140 mg/mL 140 mg subcut QMONTH #3 mL 02/08/24 05/16/24 subcutaneous auto-injector (Aimovig Autoinjector) ubrogepant 100 mg tablet (Ubrelvy) 100 mg PO ONCE #16 tabs 02/10/24 05/16/24 cyclobenzaprine 10 mg tablet 10 mg PO TID PRN #7 tabs 05/16/24 Previous Rx's ?Medication ?Instructions ?Recorded erenumab-aooe 140 mg/mL 140 mg subcut QMONTH #3 mL 02/08/24 subcutaneous auto-injector (Aimovig Autoinjector) ubrogepant 100 mg tablet (Ubrelvy) 100 mg PO ONCE #16 tabs 02/10/24 cyclobenzaprine 10 mg tablet 10 mg PO TID PRN #7 tabs 05/16/24 Allergies Allergy/AdvReac Type Severity Reaction Status Date / Time ibuprofen Allergy Severe Skin Rash Verified 05/16/24 19:59 paroxetine (From Paxil) Allergy Severe throat Verified 05/16/24 19:59 swells penicillin G Allergy Severe Anaphylaxis Verified 05/16/24 19:59 codeine Allergy Intermediate HIVES Verified 05/16/24 19:59 General Stated Complaint: Nk/Back Pain FRITZ: 3 Review of Systems Narrative: see HPI Exam Narrative Exam Narrative: General: Alert, well appearing, well nourished, in no acute distress. Head: Normocephalic, atraumatic Neck: Trachea midline, ?Neck supple. Right paraspinal and trapezius tenderness and spasm. Pain with active ROM in all directions at neck (worse with left lateral rotation), but good ROM. Cardiac: RRR. Well perfused. Resp: No respiratory distress. Speaking in full sentences. Abd: ?Non-distended Extremities: ?No deformities.? No peripheral edema. Neurologic: GCS 15. ? Moves all extremities freely against gravity Course Vital Signs Vital signs: Vital Signs Temperature 36.8 C 05/16/24 19:56 Pulse 86 05/16/24 19:56 Respiratory Rate 20 05/16/24 19:56 Blood Pressure 126/85 05/16/24 19:56 Pulse Oximetry 98 05/16/24 19:56 Temperature 36.8 C 05/16/24 19:56 Pulse 86 05/16/24 19:56 Respiratory Rate 20 05/16/24 19:56 Respiratory Effort Normal 05/16/24 19:58 Blood Pressure 126/85 05/16/24 19:56 Pulse Oximetry 98 05/16/24 19:56 Oxygen Delivery Method Room Air 05/16/24 19:56 Oxygen Flow Rate 0 05/16/24 19:56 Pain Level 9 05/16/24 19:56 Medical Decision Making 33yo F presenting with acute right sided neck pain, onset 4 days ago, worsening since then, worse with movement. Vital signs reassuring on arrival. Right paraspinal and trapezius tenderness and spasm on exam, pain with active ROM. No trauma. Not meningeal. Not quite torticollis. No neurologic symptoms and is systemically well. Not concerned for meningitis, cord compression, etc. No indication for CT or MRI imaging or labs. Will treat symptoms with toradol, valium, lidocaine patch. On reassessment patient reports feeling much better. Able to range neck with minimal pain. Discharged home with short course of cyclobenzaprine. Discharge instructions and return precautions were reviewed with patient who verbalized understanding. All questions were answered and she is in full agreement with the plan. Quality:SDOH Health Related Social Needs: No Data to Display PFSH All Active Problems (Updated 05/16/24 @ 22:06 by Sybil Eng MD) Muscle spasm (Acute) Contusion of dorsum of right hand (Acute) History of penicillin allergy (Acute) Family history of thyroid disease in mother (Acute) Mother had thyroidectomy as well as MGM Right leg weakness (Acute) Right ankle instability (Acute) Migraine headache without aura (Acute) Migraine headache with aura (Acute) Migraine with status migrainosus (Acute) 10/22/21. prophylactic medication changed to Propranalol 20mg BID. Pt will f/u with Dr. Nunez Depression with anxiety (Chronic) Idiopathic small fiber peripheral neuropathy (Acute) Medical History Fibromyalgia History of prior with SGA History of anorexia nervosa PTSD (post-traumatic stress disorder) Pt. states nothing is a potential trigger ADHD Opioid dependence No MAT for 6 years Tobacco use Hx of varicella Idiopathic peripheral neuropathy Surgical History Status post primary low transverse section 10/20/2021. Arrest of labor. Family History Mother Devic's syndrome Headache Sister Cancer bone marrow cancer Social History Smoking/Tobacco Use Status: Current-Occasional Tobacco Type: e-cigarettes Smoking risk assessment performed?: Yes Alcohol Intake: current Alcohol Intake frequency: a few times a month Alcohol type: beer Drug use: Rarely Substance use type: marijuana Details: last time smoked over a year per pt. Adopted: No Household members: children Housing: house Number of Children: 2 current occupation: [employer] To Get Approved For working Pets and animals: Yes (hermit crab) Current gender identity: female What is your relationship status?: never Panel score (0-1 are the most socially isolated patients): 0 What type of physical activity do you participate in: none Seatbelt use: sometimes Do you feel safe at home: Yes Do you feel safe in your relationship?: Yes History History 2 Para 2 Hx # Term Pregnancies 2 Multiple births 0 Hx # Pregnancies 0 Ectopic pregnancies 0 AB induced 0 Hx Number of Living Children 2 AB spontaneous 0 Past Pregnancies Del. Date GA/Weeks # Preg Succ Route Wgt Sex Labor Lgth Anesth esia Location Prov Complic 04/11/13 40 No vaginal 2409.709 g Female 14 [facility] 10/20/21 39 No 4082.331 g Male Ganesh Hernandez Delivery Date: 04/11/13 Last Updated by: Leilani Putnam CNM SGA, Rachelle Delivery Date: 10/20/21 Last Updated by: ARI Hunter
[2024-05-16] MEDS: Ketorolac 15 MG/ML VIAL IM (21:12)
[2024-05-16] MEDS: diazePAM 10 MG/2 ML SYR 5 MG IM (21:12)
[2024-05-16] MEDS: Lidocaine 5% Patch 1 PATCH TP (21:13)
[2024-05-16] MEDS: Cyclobenzaprine 10 MG TAB, 3 TABS/BTL PO (22:13)
== END 2024-05-16 22:17 | disposition home or self-care (01) ==
PROVIDERS: Emergency Provider Student in an Organized Health Care Education/Training Program; PCP Nurse Practitioner Family
DX: M54.2 Cervicalgia (principal); M62.838 Other muscle spasm; F17.290 Nicotine dependence, other tobacco product, uncomplicated
CPT/HCPCS: 81025; 96372; 99284; J1885; J3360

== ENCOUNTER 2024-07-09 05:53 | Emergency (ER) | payer MEDICAID, SELFPAY ==
[2024-07-09 05:57] VITALS: BP 127/73; PULSE 118; RESP 18; TEMP 36.4; O2SAT 99
[2024-07-09 06:01] VITALS: BP 127/73; PULSE 118; RESP 18; TEMP 36.4; O2SAT 99
[2024-07-09] MEDS: Acetaminophen 500 MG TAB 1000 MG PO (06:16)
[2024-07-09] MEDS: Dexamethasone 10 MG/ML VIAL PO (06:16)
[2024-07-09] MEDS: Amoxicillin 500 MG CAP PO (06:33)
--- NOTE | 2024-07-09 06:37 | ED.GENADUL_ITS ---
Discharge Plan Disposition Patient Disposition: Home Condition: Stable Discharge Details Clinical Impression: Acute streptococcal pharyngitis Primary Care Provider: Avis Koch ED Provider: Erika Reddy Home Meds and New Rx's Prescriptions: New amoxicillin 875 mg tablet 875 mg PO Q12H 10 Days Qty: 20 0RF No Action lamotrigine 100 mg tablet 150 mg PO DAILY Ubrelvy 100 mg tablet 100 mg PO ONCE Qty: 16 5RF Rx Instructions: as a single dose; may repeat once in >=2 hours after first dose if needed Aimovig Autoinjector 140 mg/mL auto-injector 140 mg subcut QMONTH Qty: 3 3RF cyclobenzaprine 10 mg tablet 10 mg PO TID PRNQty: 7 0RF Viibryd 10 mg (7)- 20 mg (23) tablets,dose pack 40 dose pk PO DIRECTED Patient Comments: TAKE ONE BY MOUTH EVERY DAY WITH FOOD Discharge Instructions Instructions: Strep Throat ED Additional Instructions: You were seen in the emergency department today for evaluation of a sore throat and were found to have strep pharyngitis. In our department you had a full physical examination performed, and had a positive strep swab. You received your first dose of antibiotics here and were monitored given your history of penicillin allergy. You did not have any reaction to the amoxicillin and so a course has been sent to your pharmacy. Please take all of this medication until it is gone, even if you start to feel better. Please follow-up with your primary care provider in the next few days to discuss this visit and any symptoms that change, worsen, or persist. Thank you for allowing us to be part of your care. HPI General Mode of arrival: ambulatory . Date/Time Provider Initiated Documentation: 07/09/24 06:02 . Limitations to Documentation: no limitations . Information obtained by: patient and old records reviewed . HPI Narrative: HPI: This is a 33-year-old female patient with a past medical history significant for migraine, presenting for evaluation of sore throat. Her sore throat started on , and was associated with a stuffy nose and pain with swallowing. She feels like the pain has migrated up into her bilateral ears. She has not measured a fever, states that she took Tylenol yesterday without significant improvement. She has been drinking hot tea with honey and drinking water and maintaining her hydration. Her son woke up this morning with a sore throat as well. The patient reports that she has otherwise been in her normal state of health. She states that she has a childhood allergy to penicillin but has used amoxicillin in the past. Denies cough, shortness of breath, does not have any current chest pain. Exam: Gen: Awake and alert, in no apparent distress HEENT: Non-icteric sclera. Conjunctiva noninjected, EOMs full. Stuffy nose appreciated with clear rhinorrhea, posterior pharynx with right greater than left tonsillar exudates, no asymmetry or significant swelling. Tender anterior cervical lymphadenopathy bilaterally. TMs are clear, external ears clear Neck: Supple Lungs: No apparent respiratory distress, normal respiratory effort. Lung sounds clear and equal without wheezes, rhonchi, rales CV: Appears well perfused, heart with regular rate and rhythm, strong distal pulses Abdomen: Non-distended MSK: Moves 4 extremities without apparent limitation in ROM Skin: Visualized skin without rashes, cyanosis. Neuro: Normal Gait, no obvious focal deficits or facial asymmetry. Speaks in full, clear sentences. Psych: Appropriate for situation. MDM: This is a 33-year-old female patient presenting for evaluation of sore throat stuffy nose. Differential includes but is not limited to strep pharyngitis, viral pharyngitis, viral upper respiratory infection. No evidence on physical examination for otitis media or externa. I certainly considered pneumonia and bronchitis though the patient is without cough, and has not had any focal lung findings or hypoxia in the emergency department to significant crease my concern. Will provide the patient with a dose of Decadron, Tylenol, and obtain a strep and Fluvid swab. ED Course: Rapid strep positive, and after shared decision-making conversation we will provide the patient with her first dose of amoxicillin here in the emergency department. She will be monitored to ensure that she does not develop any allergic or anaphylactic type symptoms. The patient was monitored in our emergency department for 45 minutes and did not develop any allergic symptoms such as hives, throat swelling, shortness of breath. I provided her with a full course of amoxicillin for her strep pharyngitis. At this time, the patient has had a full medical evaluation and is safe for discharge to home. They are hemodynamically stable, ambulatory, and tolerating PO. They are understanding of the follow-up plan and return precautions. They left our facility without incident. Erika Reddy MD Related Data Home Medications ?Medication ?Instructions ?Recorded ?Confirmed lamotrigine 100 mg tablet 150 mg PO DAILY 03/25/23 07/09/24 vilazodone 10 mg (7)-20 mg (23) 40 dose pk PO DIRECTED 03/25/23 07/09/24 tablets in a titration pack (Viibryd) erenumab-aooe 140 mg/mL 140 mg subcut QMONTH #3 mL 02/08/24 07/09/24 subcutaneous auto-injector (Aimovig Autoinjector) ubrogepant 100 mg tablet (Ubrelvy) 100 mg PO ONCE #16 tabs 02/10/24 07/09/24 cyclobenzaprine 10 mg tablet 10 mg PO TID PRN #7 tabs 05/16/24 07/09/24 amoxicillin 875 mg tablet 875 mg PO Q12H 10 days #20 tabs 07/09/24 Previous Rx's ?Medication ?Instructions ?Recorded erenumab-aooe 140 mg/mL 140 mg subcut QMONTH #3 mL 02/08/24 subcutaneous auto-injector (Aimovig Autoinjector) ubrogepant 100 mg tablet (Ubrelvy) 100 mg PO ONCE #16 tabs 02/10/24 cyclobenzaprine 10 mg tablet 10 mg PO TID PRN #7 tabs 05/16/24 amoxicillin 875 mg tablet 875 mg PO Q12H 10 days #20 tabs 07/09/24 Allergies Allergy/AdvReac Type Severity Reaction Status Date / Time ibuprofen Allergy Severe Skin Rash Verified 07/09/24 06:00 paroxetine (From Paxil) Allergy Severe throat Verified 07/09/24 06:00 swells penicillin G Allergy Severe Anaphylaxis Verified 07/09/24 06:00 codeine Allergy Intermediate HIVES Verified 07/09/24 06:00 General Stated Complaint: RespSymp FRITZ: 4 Course Vital Signs Vital signs: Vital Signs Temperature 36.4 C 07/09/24 05:57 Pulse 118 H 07/09/24 05:57 Respiratory Rate 18 07/09/24 05:57 Blood Pressure 127/73 07/09/24 05:57 Pulse Oximetry 99 07/09/24 05:57 Temperature 36.4 C 07/09/24 06:01 Temperature Source Temporal Artery Scan 07/09/24 06:01 Pulse 118 H 07/09/24 06:01 Respiratory Rate 18 07/09/24 06:01 Respiratory Effort Normal, Non-Labored 07/09/24 06:01 Respiratory Depth Normal 07/09/24 06:01 Blood Pressure 127/73 07/09/24 06:01 Blood Pressure Position Sitting 07/09/24 06:01 Pulse Oximetry 99 07/09/24 06:01 Oxygen Delivery Method Room Air 07/09/24 06:01 Oxygen Flow Rate 0 07/09/24 06:01 Pain Level 6 07/09/24 06:01 Lab/Test Results Lab/Test Results: POC Strep Test-SHANE(Rapid) Start: 07/09/24 06:03 Freq: .Rapid Strep Test Status: Active Protocol: Document 07/09/24 06:21 MG (Rec: 07/09/24 06:21 MG [id number]) Strep test-SHANE(Rapid)-POC POC-Strep test-SHANE (Rapid) Positive POC-Strep test-SHANE (Rapid) Positive Medical Decision Making Quality:SDOH Health Related Social Needs: No Data to Display PFSH All Active Problems (Updated 07/09/24 @ 07:20 by Erika Reddy MD) Acute streptococcal pharyngitis (Acute) History of penicillin allergy (Acute) Family history of thyroid disease in mother (Acute) Mother had thyroidectomy as well as MGM Right leg weakness (Acute) Right ankle instability (Acute) Migraine headache without aura (Acute) Migraine headache with aura (Acute) Migraine with status migrainosus (Acute) 10/22/21. prophylactic medication changed to Propranalol 20mg BID. Pt will f/u with Dr. Nunez Depression with anxiety (Chronic) Idiopathic small fiber peripheral neuropathy (Acute) Medical History Fibromyalgia History of prior with SGA History of anorexia nervosa PTSD (post-traumatic stress disorder) Pt. states nothing is a potential trigger ADHD Opioid dependence No MAT for 6 years Tobacco use Hx of varicella Idiopathic peripheral neuropathy Surgical History Status post primary low transverse section 10/20/2021. Arrest of labor. Family History Mother Devic's syndrome Headache Sister Cancer bone marrow cancer Social History Smoking/Tobacco Use Status: Current-Occasional Tobacco Type: e-cigarettes Smoking risk assessment performed?: Yes Alcohol Intake: current Alcohol Intake frequency: a few times a month Alcohol type: beer Drug use: Rarely Substance use type: marijuana Details: last time smoked over a year per pt. Adopted: No Household members: children Housing: house Number of Children: 2 current occupation: [employer] working Pets and animals: Yes ([employer]) Current gender identity: female What is your relationship status?: never Panel score (0-1 are the most socially isolated patients): 0 What type of physical activity do you participate in: none Seatbelt use: sometimes Do you feel safe at home: Yes Do you feel safe in your relationship?: Yes History History 2 Para 2 Hx # Term Pregnancies 2 Multiple births 0 Hx # Pregnancies 0 Ectopic pregnancies 0 AB induced 0 Hx Number of Living Children 2 AB spontaneous 0 Past Pregnancies Del. Date GA/Weeks # Preg Succ Route Wgt Sex Labor Lgth Anesth esia Location Prov Complic 04/11/13 40 No vaginal 2409.709 g Female 14 regional Anea 10/20/21 39 No 4082.331 g Male Ganesh Hernandez Delivery Date: 04/11/13 Last Updated by: Leilani Putnam CNM SGA, Rachelle Delivery Date: 10/20/21 Last Updated by: ARI Hunter
[2024-07-09 07:26] VITALS: BP 103/37; PULSE 110; RESP 14; TEMP 36.4; O2SAT 98
[2024-07-09 07:26] LABS: COVID-19 PCR Negative (Negative); Influenza A PCR Negative (Negative); Influenza B PCR Negative (Negative); RSV PCR Negative (Negative)
[2024-07-09 07:27] LABS: Source Nasopharynx
[2024-07-09] MEDS: Amoxicillin 875 MG TAB 1750 MG PO (07:40)
== END 2024-07-09 07:26 | disposition home or self-care (01) ==
PROVIDERS: Emergency Provider Emergency Medicine; PCP Nurse Practitioner Family
DX: J02.0 Streptococcal pharyngitis (principal)
CPT/HCPCS: 87637; 87880; 99283; J1100

== ENCOUNTER 2024-08-13 15:17 | Emergency (ER) | payer MEDICAID, SELFPAY ==
--- NOTE | 2024-08-13 15:15 | DI.RAD_ITS ---
Exam(s) XR HAND LT COMPLETE EXAM: XR HAND LT COMPLETE CLINICAL HISTORY: JAYSON. TECHNIQUE: 2D digital imaging was performed. Three views. COMPARISON: CR XR HAND RT COMPLETE from 04/18/2024 FINDINGS: BONES: There is a nondisplaced fracture seen at the volar plate of the middle phalanx of the middle f adriana. No additional fractures are identified. No bony destructive lesion is seen. JOINTS: No dislocation present. SOFT TISSUE: Normal. IMPRESSION: Nondisplaced volar plate fracture of the middle phalanx of the middle finger. DATA REPOSITORY: RADIATION DOSE DELIVERED:
[2024-08-13 15:21] VITALS: BP 109/80; PULSE 91; RESP 16; TEMP 36.8; O2SAT 98
--- NOTE | 2024-08-13 15:51 | DI.RAD_ITS ---
Exam(s) XR WRIST LT COMPLETE EXAM: XR WRIST LT COMPLETE CLINICAL HISTORY: JAYSON. TECHNIQUE: 2D digital imaging was performed. Three views. COMPARISON: CR XR WRIST LT COMPLETE from 01/01/2023 FINDINGS: BONES: No acute fracture is present. No bony destructive lesion is seen. JOINTS: The carpal bones are normally aligned. SOFT TISSUE: Normal. IMPRESSION: Unremarkable radiographs of the left wrist. DATA REPOSITORY: RADIATION DOSE DELIVERED:
--- NOTE | 2024-08-13 16:25 | DI.VRAD_ITS ---
PROCEDURE INFORMATION: Exam: XR Left Wrist Exam date and time: 08/13/2024 3:47 PM Age: 33 years old Clinical indication: Injury or trauma; Other: Fall on bent wrist TECHNIQUE: Imaging protocol: Radiologic exam of the left wrist. Views: 3 or more views. COMPARISON: CR XR WRIST LT COMPLETE 01/01/2023 11:29 AM FINDINGS: Bones/joints: There is no evidence of acute fracture.There is no evidence of malalignment or dislocation. Soft tissues: Normal. IMPRESSION: No acute findings. Dictated and Authenticated by: Tita Mckenna MD. Orderin Velasquez Devine MD
--- NOTE | 2024-08-13 16:26 | DI.VRAD_ITS ---
PROCEDURE INFORMATION: Exam: XR Left Hand Exam date and time: 08/13/2024 3:44 PM Age: 33 years old Clinical indication: Injury or trauma; Fall; Other: Foosh TECHNIQUE: Imaging protocol: Radiologic exam of the left hand. Views: 3 or more views. COMPARISON: CR XR WRIST LT COMPLETE 01/01/2023 11:29 AM FINDINGS: Bones/joints: There is no evidence of acute fracture.There is no evidence of malalignment or dislocation. Soft tissues: Normal. IMPRESSION: There is no evidence of acute fracture.There is no evidence of malalignment or dislocation. Dictated and Authenticated by: Tita Mckenna MD. Orderin Velasquez Devine MD
--- NOTE | 2024-08-13 16:36 | ED.GENADUL_ITS ---
Discharge Plan Disposition Patient Disposition: Home Condition: Good Discharge Details Clinical Impression: Fall, Injury of wrist, left Primary Care Provider: Avis Koch ED Provider: Sybil Eng Home Meds and New Rx's Prescriptions: Continued lamotrigine 100 mg tablet 150 mg PO DAILY Ubrelvy 100 mg tablet 100 mg PO ONCE Qty: 16 5RF Rx Instructions: as a single dose; may repeat once in >=2 hours after first dose if needed Aimovig Autoinjector 140 mg/mL auto-injector 140 mg subcut QMONTH Qty: 3 3RF cyclobenzaprine 10 mg tablet 10 mg PO TID PRNQty: 7 0RF Viibryd 10 mg (7)- 20 mg (23) tablets,dose pack 40 dose pk PO DIRECTED Patient Comments: TAKE ONE BY MOUTH EVERY DAY WITH FOOD Discharge Instructions Instructions: Common Wrist Injuries ED Additional Instructions: Wear the wrist splint 26/01. Wrap it in plastic if you shower. Tylenol and ibuprofen over the counter as needed for pain. Call your primary care doctor on Thursday to schedule an appointment for within one week to followup on your visit here. You may need repeat x-rays. Return to the emergency department for new or worsening symptoms including worsening pain, weakness in your hand/wrist/fingers, numbness, if your fingers turn white or blue, or if you have any other concerns. Discharge Data Discharge Date/Time-TO BE ENTERED AT DEPARTURE: 08/13/24 17:05 HPI General Mode of arrival: ambulatory . Date/Time Provider Initiated Documentation: 08/13/24 15:20 . Limitations to Documentation: no limitations . Information obtained by: patient . HPI Narrative: 33yo F presenting with left wrist pain after fall on outstretched hand. About one hour prior to arrival tripped and fell forward catching herself on the grou nd with her left hand. No head strike or LOC. Pain is mostly in her wrist, she has noted some swelling and pain with movement of her middle finger as well. Able to move hand, all digits, and wrist though it is painful. No numbness or weakness. Denies pain or injury elsewhere. Otherwise in her usual state of health. Related Data Home Medications ?Medication ?Instructions ?Recorded ?Confirmed lamotrigine 100 mg tablet 150 mg PO DAILY 03/25/23 08/13/24 vilazodone 10 mg (7)-20 mg (23) 40 dose pk PO DIRECTED 03/25/23 08/13/24 tablets in a titration pack (Viibryd) erenumab-aooe 140 mg/mL 140 mg subcut QMONTH #3 mL 02/08/24 08/13/24 subcutaneous auto-injector (Aimovig Autoinjector) ubrogepant 100 mg tablet (Ubrelvy) 100 mg PO ONCE #16 tabs 02/10/24 08/13/24 cyclobenzaprine 10 mg tablet 10 mg PO TID PRN #7 tabs 05/16/24 08/13/24 Previous Rx's ?Medication ?Instructions ?Recorded erenumab-aooe 140 mg/mL 140 mg subcut QMONTH #3 mL 02/08/24 subcutaneous auto-injector (Aimovig Autoinjector) ubrogepant 100 mg tablet (Ubrelvy) 100 mg PO ONCE #16 tabs 02/10/24 cyclobenzaprine 10 mg tablet 10 mg PO TID PRN #7 tabs 05/16/24 Allergies Allergy/AdvReac Type Severity Reaction Status Date / Time ibuprofen Allergy Severe Skin Rash Verified 08/13/24 15:19 paroxetine (From Paxil) Allergy Severe throat Verified 08/13/24 15:19 swells penicillin G Allergy Severe Anaphylaxis Verified 08/13/24 15:19 codeine Allergy Intermediate HIVES Verified 08/13/24 15:19 General Stated Complaint: Orthopedic FRITZ: 3 Review of Systems Narrative: see HPI Exam Narrative Exam Narrative: General: Alert, well appearing, well nourished, in no acute distress. Head: Normocephalic, atraumatic Neck: Trachea midline, ?Neck supple. ENT: ?MMM.? No oropharygeal lesions or exudate. Cardiac: ?RRR, no murmurs appreciated Resp: No respiratory distress. CTAB. Abd: ?Soft, non-distended, nontender : ?No suprapubic tenderness. No CVA tenderness. Neurologic: GCS 15. ? Moves all extremities freely against gravity Extremities: ?No deformities.? No peripheral edema. LUE: Pain with passive ROM at wrist. Snuffbox TTP. No other focal bony tenderness. Sensation to light touch intact and symmetric bilaterally. Brisk capillary refill all digits. + radial and ulnar pulse. Normal color. No evident swelling. No abrasions or lacerations. Normal strength flexion & abduction of thumb. 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 Able to flex and extend all digits (pain with active and passive extension of 3rd digit). Course Vital Signs Vital signs: Vital Signs Temperature 36.8 C 08/13/24 15:21 Pulse 91 H 08/13/24 15:21 Respiratory Rate 16 08/13/24 15:21 Blood Pressure 109/80 08/13/24 15:21 Pulse Oximetry 98 08/13/24 15:21 Temperature 36.8 C 08/13/24 15:21 Temperature Source Oral 08/13/24 15:21 Pulse 91 H 08/13/24 15:21 Respiratory Rate 16 08/13/24 15:21 Blood Pressure 109/80 08/13/24 15:21 Blood Pressure Position Sitting 08/13/24 15:21 Pulse Oximetry 98 08/13/24 15:21 Oxygen Delivery Method Room Air 08/13/24 15:21 Oxygen Flow Rate 0 08/13/24 15:21 Pain Level 6 08/13/24 15:21 Medical Decision Making 33yo F presenting with left wrist pain after fall on outstretched hand. Vital signs reassuring on arrival. Neurovascular intact. Given tylenol & toradol for pain. XRs independently reviewed, no displaced fracture or dislocation on my view; radiology reads below with no acute findings. As she does have scaphoid t enderness on exam, placed in thumb-spica splint and advised to followup with PCP for reassessment and repeat imaging. Discharged home; discharge instructions and return precautions were reviewed with patient who verbalized understanding. All questions were answered and she is in full agreement with the plan. Imaging Data Radiologic Study: Imaging: X-Ray Radiologist's impression: L wrist: IMPRESSION: No acute findings L hand: IMPRESSION: There is no evidence of acute fracture.There is no evidence of malalignment or dislocation Quality:SDOH Health Related Social Needs: No Data to Display PFSH All Active Problems (Updated 08/13/24 @ 16:40 by Sybil Eng MD) Injury of wrist, left (Acute) Fall (Acute) History of penicillin allergy (Acute) Family history of thyroid disease in mother (Acute) Mother had thyroidectomy as well as MGM Right leg weakness (Acute) Right ankle instability (Acute) Migraine headache without aura (Acute) Migraine headache with aura (Acute) Migraine with status migrainosus (Acute) 10/22/21. prophylactic medication changed to Propranalol 20mg BID. Pt will f/u with Dr. Nunez Depression with anxiety (Chronic) Idiopathic small fiber peripheral neuropathy (Acute) Medical History Fibromyalgia History of prior with SGA History of anorexia nervosa PTSD (post-traumatic stress disorder) Pt. states nothing is a potential trigger ADHD Opioid dependence No MAT for 6 years Tobacco use Hx of varicella Idiopathic peripheral neuropathy Surgical History Status post primary low transverse section 10/20/2021. Arrest of labor. Family History Mother Devic's syndrome Headache Sister Cancer bone marrow cancer Social History Smoking/Tobacco Use Status: Current-Occasional Tobacco Type: e-cigarettes Smoking risk assessment performed?: Yes Alcohol Intake: current Alcohol Intake frequency: a few times a month Alcohol type: beer Drug use: Rarely Substance use type: marijuana Details: last time smoked over a year per pt. Adopted: No Household members: children Housing: house Number of Children: 2 current occupation: [employer] working Pets and animals: Yes ([employer]) Current gender identity: female What is your relationship status?: never Panel score (0-1 are the most socially isolated patients): 0 What type of physical activity do you participate in: none Seatbelt use: sometimes Do you feel safe at home: Yes Do you feel safe in your relationship?: Yes History History 2 Para 2 Hx # Term Pregnancies 2 Multiple births 0 Hx # Pregnancies 0 Ectopic pregnancies 0 AB induced 0 Hx Number of Living Children 2 AB spontaneous 0 Past Pregnancies Del. Date GA/Weeks # Preg Succ Route Wgt Sex Labor Lgth Anesth esia Location Prov Compl 04/11/13 40 No vaginal 2409.709 g Female 14 regional Anea 10/20/21 39 No 4082.331 g Male Ganesh Hernandez Delivery Date: 04/11/13 Last Updated by: Leilani Putnam CNM SGA, Rachelle Delivery Date: 10/20/21 Last Updated by: ARI Hunter
[2024-08-13 16:49] VITALS: BP 109/80; PULSE 91; RESP 16; TEMP 36.8; O2SAT 98
[2024-08-13] MEDS: Acetaminophen 325 MG TAB 650 MG PO (16:56)
[2024-08-13] MEDS: Ketorolac 15 MG/ML VIAL IM (16:56)
== END 2024-08-13 17:05 | disposition home or self-care (01) ==
PROVIDERS: Emergency Provider Student in an Organized Health Care Education/Training Program; PCP Nurse Practitioner Family
DX: M25.532 Pain in left wrist (principal); S62.653A Nondisplaced fracture of middle phalanx of left middle finger, initial encounter for closed fracture; W01.0XXA Fall on same level from slipping, tripping and stumbling without subsequent striking against object, initial encounter; Y93.01 Activity, walking, marching and hiking
CPT/HCPCS: 96372; 99284; 73110; 73130; 99283; J1885

== ENCOUNTER 2024-09-26 10:03 | Emergency (ER) | payer MEDICAID, SELFPAY ==
[2024-09-26] VITALS (23 sets, daily range): BP systolic 101–117; BP diastolic 53–80; PULSE 53–76; RESP 11–20; TEMP 37.1; O2SAT 98–100
--- NOTE | 2024-09-26 10:00 | RT.EKG_ITS ---
APPROVED REPORT Exam: Resting ECG Reason for Exam: Syncope Patient Location: E HR:70 bpm ECG Measurements Heart Rate 70 AXIS MT 142 P 28 QRSd 83 QRS 57 QT 373 T 62 QTc 404 Conclusion Sinus rhythm, rate 70 No interval abnormalities Normal axis No STEMI No significant changes from priors
--- NOTE | 2024-09-26 10:30 | W.ED.GENAD ---
Discharge Plan Disposition Patient Disposition: Home Condition: Stable Discharge Details Clinical Impression: Near syncope Primary Care Provider: Avis Koch ED Provider: Erika Reddy Home Meds and New Rx's Prescriptions: No Action lamotrigine 100 mg tablet 150 mg PO DAILY Ubrelvy 100 mg tablet 100 mg PO ONCE Qty: 16 5RF Rx Instructions: as a single dose; may repeat once in >=2 hours after first dose if needed Aimovig Autoinjector 140 mg/mL auto-injector 140 mg subcut QMONTH Qty: 3 3RF methylphenidate HCl [Concerta] 27 mg tablet extended release 24hr 27 mg PO DAILY Patient Comments: TAKE ONE TABLET BY MOUTH EVERY DAY Viibryd 10 mg (7)- 20 mg (23) tablets,dose pack 40 dose pk PO DIRECTED Patient Comments: TAKE ONE BY MOUTH EVERY DAY WITH FOOD Discharge Instructions Instructions: Near Fainting (DC) Additional Instructions: You were seen in the emergency department today for evaluation of a near fainting episode. In our department you do full physical examination performed, laboratory studies that were reassuring, and had an EKG that shows no sign of damage or injury to your heart. Likely, this occurred because you underwent significant physical exertion as well as significant stress without adequate fuel for your body. He received IV fluids, but you need to ensure that you maintain good nutrition so that this does not happen again. Please follow-up with your primary care provider in the next few days to discuss this visit and any symptoms that change, worsen, or persist. Thank you for allowing us to be part of your care. HPI General Mode of arrival: ambulatory. Date/Time Provider Initiated Documentation: 09/26/24 10:17. Limitations to Documentation: no limitations. Information obtained by: patient and old records reviewed. HPI Narrative: HPI: This is a 34-year-old female patient presenting for evaluation of near syncope. She reports that she has been asked exceptionally anxious this weekend, after from a partner, and taking care of their kids. She reports that when she is anxious she often does not eat, and states that she has been going to the gym twice a day to burn off her excess energy. She reports that this morning she did not eat and then went to the gym, and felt dizzy and faint. She reports that she has been drinking fluids, states that she did not lose consciousness, fall or strike her head or sustain any injury. The patient reports no personal history of cardiac disease, no family history of early cardiac or arrhythmia. She states that she has access to social supports, and feels safe in her living environment. She has a remote history of suicidal thoughts, but states no recent suicidal thoughts or intent, no attempts or plans made. Currently, the patient reports that she just feels anxious and weak, but her dizziness has resolved with Semi-Arndt positioning. Exam: Gen: Awake and alert, in no apparent distress HEENT: Non-icteric sclera Neck: Supple Lungs: No apparent respiratory distress, normal respiratory effort. Lung sounds clear and equal bilaterally CV: Appears well perfused, heart with regular rate and rhythm, strong distal pulses Abdomen: Non-distended, soft, nontender MSK: Moves 4 extremities without apparent limitation in ROM Skin: Visualized skin without rashes, cyanosis. Neuro: Normal Gait, no obvious focal deficits or facial asymmetry. Speaks in full, clear sentences. Psych: Appropriate for situation. MDM: This is a 34-year-old female patient presenting for evaluation of near syncope. Differential includes but is not limited to orthostasis, vasovagal syndrome, dehydration, metabolic derangement, hypoglycemia, anemia, and certainly considered cardiac abnormalities including arrhythmia, no chest pain to suggest ACS. We obtained an EKG which I reviewed, which shows a normal sinus rhythm without evidence of ischemia, interval abnormality, axis abnormality or ectopy. We will obtain laboratory studies to include CBC, CMP, magnesium, troponin, and I will provide the patient with a liter of IV fluids for rehydration. ED Course: I independently interpreted the laboratory studies, which show no significant leukocytosis, anemia, or thrombocytopenia. The chemistry panel is without evidence of electrolyte abnormality, kidney dysfunction, or liver injury. Troponin negative, on reassessment the patient reports that she continues to feel quite anxious. At home she takes a 0.5 mg Ativan as needed for panic and anxiety, states that she uses a few doses per month. This was provided to the patient to good effect. The patient road tested successfully and tolerated oral fluids, and was counseled on the importance of good nutrition especially in the setting of physical exertion. She has outpatient medical care and was encouraged to reach out to them for mental health support if needed. At this time, the patient has had a full medical evaluation and is safe for discharge to home. They are hemodynamically stable, ambulatory, and tolerating PO. They are understanding of the follow-up plan and return precautions. They left our facility without incident. Erika Reddy MD Related Data Home Medications ?Medication ?Instructions ?Recorded ?Confirmed lamotrigine 100 mg tablet 150 mg PO DAILY 03/25/23 09/26/24 vilazodone 10 mg (7)-20 mg (23) 40 dose pk PO DIRECTED 03/25/23 09/26/24 tablets in a titration pack (Viibryd) erenumab-aooe 140 mg/mL 140 mg subcut QMONTH #3 mL 02/08/24 09/26/24 subcutaneous auto-injector (Aimovig Autoinjector) ubrogepant 100 mg tablet (Ubrelvy) 100 mg PO ONCE #16 tabs 02/10/24 09/26/24 methylphenidate HCl 27 mg 27 mg PO DAILY 09/26/24 09/26/24 tablet,extended release 24 hr (Concerta) Previous Rx's ?Medication ?Instructions ?Recorded erenumab-aooe 140 mg/mL 140 mg subcut QMONTH #3 mL 02/08/24 subcutaneous auto-injector (Aimovig Autoinjector) ubrogepant 100 mg tablet (Ubrelvy) 100 mg PO ONCE #16 tabs 02/10/24 Allergies Allergy/AdvReac Type Severity Reaction Status Date / Time ibuprofen Allergy Severe Skin Rash Verified 09/26/24 10:12 paroxetine (From Paxil) Allergy Severe throat Verified 09/26/24 10:12 swells penicillin G Allergy Severe Anaphylaxis Verified 09/26/24 10:12 codeine Allergy Intermediate HIVES Verified 09/26/24 10:12 General Stated Complaint: Dizzy/Sync FRITZ: 3 Course Vital Signs Vital signs: Vital Signs Temperature 37.1 C 09/26/24 10:07 Pulse 76 09/26/24 10:07 Respiratory Rate 20 09/26/24 10:07 Blood Pressure 115/80 09/26/24 10:07 Pulse Oximetry 98 09/26/24 10:07 Temperature 37.1 C 09/26/24 10:07 Pulse 76 09/26/24 10:07 Respiratory Rate 20 09/26/24 10:07 Blood Pressure 115/80 09/26/24 10:07 Blood Pressure Position Sitting 09/26/24 10:07 Pulse Oximetry 98 09/26/24 10:07 Oxygen Delivery Method Room Air 09/26/24 10:07 Oxygen Flow Rate 0 09/26/24 10:07 Medical Decision Making Quality:SDOH Health Related Social Needs: No Data to Display PFSH All Active Problems (Updated 09/26/24 @ 14:09 by Erika Reddy MD) Near syncope (Acute) History of penicillin allergy (Acute) Family history of thyroid disease in mother (Acute) Mother had thyroidectomy as well as MGM Right leg weakness (Acute) Right ankle instability (Acute) Migraine headache without aura (Acute) Migraine headache with aura (Acute) Migraine with status migrainosus (Acute) 10/22/21. prophylactic medication changed to Propranalol 20mg BID. Pt will f/u with Dr. Nunez Depression with anxiety (Chronic) Idiopathic small fiber peripheral neuropathy (Acute) Medical History Fibromyalgia History of prior with SGA History of anorexia nervosa PTSD (post-traumatic stress disorder) Pt. states nothing is a potential trigger ADHD Opioid dependence No MAT for 6 years Tobacco use Hx of varicella Idiopathic peripheral neuropathy Surgical History Status post primary low transverse section 10/20/2021. Arrest of labor. Family History Mother Devic's syndrome Headache Sister Cancer bone marrow cancer Social History Smoking/Tobacco Use Status: Current-Occasional Tobacco Type: e-cigarettes Smoking risk assessment performed?: Yes Alcohol Intake: current Alcohol Intake frequency: a few times a month Alcohol type: beer Drug use: Rarely Substance use type: marijuana Details: last time smoked over a year per pt. Adopted: No Household members: children Housing: house Number of Children: 2 current occupation: [employer] working Pets and animals: Yes (hermit crab) Current gender identity: female What is your relationship status?: never Panel score (0-1 are the most socially isolated patients): 0 What type of physical activity do you participate in: none Seatbelt use: sometimes Do you feel safe at home: Yes Do you feel safe in your relationship?: Yes History History 2 Para 2 Hx # Term Pregnancies 2 Multiple births 0 Hx # Pregnancies 0 Ectopic pregnancies 0 AB induced 0 Hx Number of Living Children 2 AB spontaneous 0 Past Pregnancies Del. Date GA/Weeks # Preg Succ Route Wgt Sex Labor Lgth Anesthesia Location Prov Complic 04/11/13 40 No vaginal 2409.709 g Female 14 regional [facility] 10/20/21 39 No 4082.331 g Male Jerica Hernandez Delivery Date: 04/11/13 Last Updated by: Leilani Putnam CNM SGARachelle Delivery Date: 10/20/21 Last Updated by: ARI Hunter Have you Been Recently Intoxicated or Drunk Within the Last 30 days?: No Have you Ever Experienced Previous Episodes of Alcohol Withdrawal?: No Have you ever Experienced Withdrawal Seizures?: No Have you ever Experienced Delirium Tremens(DT)s?: No Have you ever undergone Alcohol Rehabilitation Treatment (i.e, inpt ot outpatient treatment programs)?: No Have you ever Experienced Blackouts?: No Have you ever Combined Alcohol with other Downers within the last 90 days?: No Have you ever Combined Alcohol with any other Substance of Abuse during the last 90 days?: No Positive Blood Alcohol level on Presentation? [PCS.BAL]: No Evidence of Increased Autonomic Activity (i.e. HR>120, tremor, sweating, agitation, nausea)?: No Result: 0
[2024-09-26 11:07] LABS: Abs Immature Grans 0.02 10^3/uL (0.0-0.06); Absolute Basophil Count 0.02 10^3/uL (0.0-0.2); Absolute Eosinophil Count 0.03 10^3/uL (0.0-0.7); Absolute Monocyte Count 0.32 10^3/uL (0.1-0.8); Absolute Neutrophil Count 3.38 10^3/uL (1.2-6.7); Basophils % 0.4 %; Eosinophils % 0.5 %; HCT 37.2 % (36.0-46.0); HGB 12.9 g/dL (11.2-15.7); Immature Grans % 0.4 %; Lymphocytes % 33.5 %; MCH 31.6 pg (27.0-33.0); MCHC 34.7 % (32.0-36.0); MCV 91 fL (80-95); MPV 10.6 fL (8.0-11.0); Monocytes % 5.6 %; Neutrophils % 59.6 %; Platelet Count 196 10^3/uL (130-400); RBC 4.08 10^6/uL (3.93-5.22); RDW 12.5 % (11.7-14.6); RDW-SD 41.1 fL; WBC 5.67 10^3/uL (4.4-10.8)
[2024-09-26] MEDS: Lactated Ringers 1,000 ML 1000 ML IV (11:14)
[2024-09-26] MEDS: LORazepam 0.5 MG TAB PO (12:53)
[2024-09-26 13:33] LABS: ALT 29 U/L (14-59); AST 30 U/L (15-37); Albumin 3.7 g/dL (3.4-5.0); Alkaline Phosphatase 56 U/L (46-116); Anion Gap 8.3 mmol/L (3-11); BUN 11 mg/dL (7-18); Bilirubin, Total 0.4 mg/dL (0.2-1.0); CO2 28.7 mmol/L (21.0-32.0); CREATININE 0.8 mg/dL (0.55-1.02); Calcium 9.1 mg/dL (8.5-10.1); Chloride 107 mmol/L (98-107); Estimated GFR 100.33 (mL/min/1.73m2); Glucose 87 mg/dL (74-106); Magnesium 1.8 mg/dL (1.8-2.4); Potassium 3.8 mmol/L (3.5-5.1); Sodium 144 mmol/L (136-145); Total Protein 6.5 g/dL (6.4-8.2)
[2024-09-26 14:03] LABS: Troponin I 7 ng/L (<or=51)
== END 2024-09-26 14:20 | disposition home or self-care (01) ==
PROVIDERS: Emergency Provider Emergency Medicine; PCP Nurse Practitioner Family
DX: R55 Syncope and collapse (principal); F17.290 Nicotine dependence, other tobacco product, uncomplicated
CPT/HCPCS: 80053; 93005; 96360; 99284; 83735; 84484; 85025; 93010

== ENCOUNTER 2024-10-10 21:26 | Outpatient (REF) | payer MEDICAID, SELFPAY | END 2024-10-10 21:27 | disposition home or self-care (01) | LOC: NCHCN 21:26 | PROVIDERS: PCP Nurse Practitioner Family; Visit Provider Family Medicine | DX: N39.0 Urinary tract infection, site not specified (principal); R82.89 Other abnormal findings on cytological and histological examination of urine | CPT/HCPCS: 87086 ==

== ENCOUNTER 2024-10-15 20:13 | Emergency (ER) | payer MEDICAID, SELFPAY ==
[2024-10-15 20:27] VITALS: BP 115/79; PULSE 81; RESP 16; TEMP 36.8; O2SAT 99
--- NOTE | 2024-10-15 20:44 | ED.GENADUL_ITS ---
Discharge Plan Disposition Patient Disposition: Home Discharge Details Clinical Impression: Medication reaction Primary Care Provider: Avsi Koch ED Provider: Sandro Christian Home Meds and New Rx's Prescriptions: No Action lamotrigine 100 mg tablet 150 mg PO DAILY Ubrelvy 100 mg tablet 100 mg PO ONCE Qty: 16 5RF Rx Instructions: as a single dose; may repeat once in >=2 hours after first dose if needed Aimovig Autoinjector 140 mg/mL auto-injector 140 mg subcut QMONTH Qty: 3 3RF methylphenidate HCl [Concerta] 27 mg tablet extended release 24hr 27 mg PO DAILY Patient Comments: TAKE ONE TABLET BY MOUTH EVERY DAY methotrexate 15 mg PO QWEEK Viibryd 10 mg (7)- 20 mg (23) tablets,dose pack 40 dose pk PO DIRECTED Patient Comments: TAKE ONE BY MOUTH EVERY DAY WITH FOOD Discharge Instructions Instructions: Adverse Drug Reactions, Adult (DC) Additional Instructions: You were seen in the emergency department for itchy arms as well as sensation of a swelling tongue. Your tongue appeared unremarkable. You did not have a rash where you are having significant itchiness. This could be an adverse reaction to the methotrexate. I think it is less likely to be an allergic reaction. We gave you some Benadryl to take at home. Do not take any other methotrexate until you can talk to your banquet stewardess about this reaction. If you develop trouble breathing, worsening swelling, intractable nausea or vomiting, or if you have any other concerns then please return straight to the emergency department. Referrals: Avis Koch [Primary Care Provider] - 1 week HPI General Mode of arrival: ambulatory . Date/Time Provider Initiated Documentation: 10/15/24 20:35 . Limitations to Documentation: no limitations . Information obtained by: patient . HPI Narrative: This is a 34-year-old female who presents with possible allergic reaction. Says that she started the new dosing regimen of methotrexate which is new medication for her today. Took the first dose at around noon. This evening or a few hours ago started with some itchiness on her upper arms. This did not go away. There is no rash associated with it. She thought her tongue felt a little funny and ultimately she was worried and came here. No trouble breathing. No wheezing. No nausea vomiting or diarrhea. Denying any other complaints. Related Data Home Medications ?Medication ?Instructions ?Recorded ?Confirmed lamotrigine 100 mg tablet 150 mg PO DAILY 03/25/23 10/15/24 vilazodone 10 mg (7)-20 mg (23) 40 dose pk PO DIRECTED 03/25/23 10/15/24 tablets in a titration pack (Viibryd) erenumab-aooe 140 mg/mL 140 mg subcut QMONTH #3 mL 02/08/24 10/15/24 subcutaneous auto-injector (Aimovig Autoinjector) ubrogepant 100 mg tablet (Ubrelvy) 100 mg PO ONCE #16 tabs 02/10/24 10/15/24 methylphenidate HCl 27 mg 27 mg PO DAILY 09/26/24 10/15/24 tablet,extended release 24 hr (Concerta) methotrexate 15 mg PO QWEEK 10/15/24 10/15/24 Previous Rx's ?Medication ?Instructions ?Recorded erenumab-aooe 140 mg/mL 140 mg subcut QMONTH #3 mL 02/08/24 subcutaneous auto-injector (Aimovig Autoinjector) ubrogepant 100 mg tablet (Ubrelvy) 100 mg PO ONCE #16 tabs 02/10/24 Allergies Allergy/AdvReac Type Severity Reaction Status Date / Time ibuprofen Allergy Severe Skin Rash Verified 10/15/24 20:30 paroxetine (From Paxil) Allergy Severe throat Verified 10/15/24 20:30 swells penicillin G Allergy Severe Anaphylaxis Verified 10/15/24 20:30 codeine Allergy Intermediate HIVES Verified 10/15/24 20:30 General Stated Complaint: Allergic FRITZ: 3 Review of Systems Constitutional Constitutional: Denies chills, Denies fever(s) and Denies headache(s) Eyes Eyes: Denies change in vision ENT Ears, Nose, Mouth, and Throat: Denies dysphagia, Denies headache(s), Denies hoarseness, Denies mouth pain, Denies neck mass, Denies neck pain, Denies odynophagia and Reports tongue swelling (sensation of tongue swelling) Cardiovascular Cardiovascular: Denies chest pain and Denies dyspnea Respiratory Respiratory: Denies dyspnea Gastrointestinal Gastrointestinal: Denies abdominal pain, Denies dysphagia, Denies diarrhea, Denies nausea, Denies odynophagia and Denies vomiting Genitourinary Genitourinary: Denies dysuria Musculoskeletal Musculoskeletal: Denies myalgias and Denies neck pain Integumentary/Breasts Skin/Breast: Denies changing lesions and Reports other (itchy arms with no rash) Neurologic Neurologic: Denies behavioral changes and Denies headache(s) Psychiatric Psychiatric: Denies behavioral changes Endocrine Endocrine: Denies heat intolerance Hematologic/Lymphatic Hematologic/Lymphatic: Denies lymphadenopathy Allergic/Immunologic Allergic/Immunologic: Reports tongue swelling (sensation of tongue swelling) Exam Const General: cooperative Nutritional Appearance: average body habitus Orientation: alert, awake and oriented x3 HENMT Head: normal to inspection Ears: external ears normal General nose exam: external nose normal and nares normal Face and sinus: normal facial exam Mouth: oral mucosae normal, tongue normal, oropharynx normal and moist mucous membranes Eyes Pupils: PERRL EOM: EOM intact bilaterally and No nystagmus Neck Neck: full ROM and no tracheal deviation Chest Chest: normal inspection of the chest Resp Auscultation: clear to auscultation bilaterally Cardio Rate: regular rate Rhythm: regular rhythm GI Inspection: normal to inspection Palpation: soft, no guarding, not rigid and nontender Back/Spine/Pelvis Back: No no CVA tenderness Thoracic/Lumbar Spine: thoracic and lumbar spine normal to inspection Skin General skin exam: no rashes or lesions noted Neuro General: patient alert, patient awake and patient oriented x3 Cranial Nerves: CN's II-XI intact bilaterally, PERRL and no nystagmus Cognition: normal cognition Motor: muscle tone normal throughout and strength 5/5 throughout Sensory Exam: no sensory deficits noted Extrem General: normal to inspection Course Vital Signs Vital signs: Vital Signs Temperature 36.8 C 10/15/24 20:27 Pulse 81 10/15/24 20:27 Respiratory Rate 16 10/15/24 20:27 Blood Pressure 115/79 10/15/24 20:27 Pulse Oximetry 99 10/15/24 20:27 Temperature 36.8 C 10/15/24 20:27 Temperature Source Oral 10/15/24 20:27 Pulse 81 10/15/24 20:27 Respiratory Rate 16 10/15/24 20:27 Respiratory Effort Non-Labored 10/15/24 20:37 Respiratory Pattern Normal 10/15/24 20:37 Blood Pressure 115/79 10/15/24 20:27 Pulse Oximetry 99 10/15/24 20:27 Oxygen Delivery Method Room Air 10/15/24 20:27 Oxygen Flow Rate 0 10/15/24 20:27 Medical Decision Making This is a 34-year-old female who presents with itchy arms and sensation of swelling Kevon. Her tongue is not swollen on examination. She has no rash in the area of the itchiness on her arms. No clear diagnosis for anaphylaxis or even allergy at this point. No gastrointestinal symptoms. Lungs are clear. No trouble breathing or trouble swallowing. No changes in her voice. Exposure to the methotrexate was many hours before the onset of the symptoms. I told her to not take the methotrexate until she can follow-up with her banquet stewardess. Gave her a dose of Benadryl to take home and she did not want to take it here and then drive. She denies any other complaints. Will discharge with return precautions. Differential Diagnosis Differential Diagnosis: Differential includes hives, medication adverse reaction, anaphylaxis, Medical Records Medical records reviewed: Yes I reviewed the patient's medical records. Quality:SDOH Health Related Social Needs: No Data to Display PFSH All Active Problems Medication reaction (Acute) Near syncope (Acute) History of penicillin allergy (Acute) Family history of thyroid disease in mother (Acute) Mother had thyroidectomy as well as MGM Right leg weakness (Acute) Right ankle instability (Acute) Migraine headache without aura (Acute) Migraine headache with aura (Acute) Migraine with status migrainosus (Acute) 10/22/21. prophylactic medication changed to Propranalol 20mg BID. Pt will f/u with Dr. Nunez Depression with anxiety (Chronic) Idiopathic small fiber peripheral neuropathy (Acute) Medical History Fibromyalgia History of prior with SGA History of anorexia nervosa PTSD (post-traumatic stress disorder) Pt. states nothing is a potential trigger ADHD Opioid dependence No MAT for 6 years Tobacco use Hx of varicella Idiopathic peripheral neuropathy Surgical History Status post primary low transverse section 10/20/2021. Arrest of labor. Family History Mother Devic's syndrome Headache Sister Cancer bone marrow cancer Social History Smoking/Tobacco Use Status: Current-Occasional Tobacco Type: e-cigarettes Smoking risk assessment performed?: Yes Alcohol Intake: current Alcohol Intake frequency: a few times a month Alcohol type: beer Drug use: Rarely Substance use type: marijuana Details: last time smoked over a year per pt. Adopted: No Household members: children Housing: house Number of Children: 2 current occupation: [employer] working Pets and animals: Yes (her[employer]ap[employer]) Current gender identity: female What is your relationship status?: never Panel score (0-1 are the most socially isolated patients): 0 What type of physical activity do you participate in: none Seatbelt use: sometimes Do you feel safe at home: Yes Do you feel safe in your relationship?: Yes History History 2 Para 2 Hx # Term Pregnancies 2 Multiple births 0 Hx # Pregnancies 0 Ectopic pregnancies 0 AB induced 0 Hx Number of Living Children 2 AB spontaneous 0 Past Pregnancies Del. Date GA/Weeks # Preg Succ Route Wgt Sex Labor Lgth Anesth esia Location [facility] 04/11/13 40 No vaginal 2409.709 g Female 14 [facility] 10/20/21 39 No 4082.331 g Male Ganesh Hernandez Delivery Date: 04/11/13 Last Updated by: Leilani Putnam CNM SGA, Rachelle Delivery Date: 10/20/21 Last Updated by: ARI Hunter
--- NOTE | 2024-10-15 21:06 | NUR.NOTE ---
went to discharge patient with take home medications to treat allergic reaction and patient had left room. confirmed with access and security that patient left the ED and left in a vehicle. MD made aware, charge nurse made aware
== END 2024-10-15 21:50 | disposition home or self-care (01) ==
PROVIDERS: Emergency Provider Student in an Organized Health Care Education/Training Program; PCP Nurse Practitioner Family
DX: L29.9 Pruritus, unspecified; T45.1X5A Adverse effect of antineoplastic and immunosuppressive drugs, initial encounter
CPT/HCPCS: 99282; 99283

== ENCOUNTER 2024-12-13 19:20 | Emergency (ER) | payer MEDICAID, SELFPAY ==
[2024-12-13 19:21] VITALS: BP 122/66; PULSE 102; RESP 18; TEMP 36.8; O2SAT 98
--- NOTE | 2024-12-13 19:30 | DI.RAD_ITS ---
Exam(s) XR FOOT LT COMPLETE EXAM: XR FOOT LT COMPLETE CLINICAL HISTORY: plantar puncture wound. TECHNIQUE: 2D digital imaging was performed of the left foot. Three images were obtained. AP, obli que and lateral views were obtained. COMPARISON: No exams were available for comparison FINDINGS: BONES: No acute fracture is present. No bony destructive lesion is seen. JOINTS: No dislocation present. SOFT TISSUE: On the lateral view, there is a tiny 1-2 mm density in the plantar soft tissues adjacent to the shaft of the 5th metatarsal. This may represent a small foreign body. Please correlate with the patient's it injury site. IMPRESSION: Question of a tiny foreign body in the soft tissues on the plantar surface of the foot adjacent to th e 5th metatarsal. DATA REPOSITORY: RADIATION DOSE DELIVERED:
--- NOTE | 2024-12-13 19:37 | ED.GENADUL_ITS ---
Discharge Plan Disposition Patient Disposition: Home Condition: Stable Discharge Details Clinical Impression: Puncture wound of plantar aspect of foot Primary Care Provider: Avis Koch ED Provider: Erika Reddy Home Meds and New Rx's Prescriptions: New ciprofloxacin HCl [Cipro] 250 mg tablet 750 mg PO Q12H 7 Days Qty: 42 0RF sulfamethoxazole-trimethoprim [Bactrim DS] 800-160 mg tablet 1 tab PO Q12H 7 Days Qty: 14 0RF No Action lamotrigine 100 mg tablet 150 mg PO DAILY Ubrelvy 100 mg tablet 100 mg PO ONCE Qty: 16 5RF Rx Instructions: as a single dose; may repeat once in >=2 hours after first dose if needed Aimovig Autoinjector 140 mg/mL auto-injector 140 mg subcut QMONTH Qty: 3 3RF methylphenidate HCl [Concerta] 27 mg tablet extended release 24hr 27 mg PO DAILY Patient Comments: TAKE ONE TABLET BY MOUTH EVERY DAY methotrexate 15 mg PO QWEEK Viibryd 10 mg (7)- 20 mg (23) tablets,dose pack 40 dose pk PO DIRECTED Patient Comments: TAKE ONE BY MOUTH EVERY DAY WITH FOOD methylphenidate HCl [Concerta] 36 mg tablet extended release 24hr 36 mg PO DAILY Patient Comments: TAKE ONE TABLET BY MOUTH EVERY MORNING DIRECTED Discharge Instructions Instructions: Taking care of cuts, scrapes, and puncture wounds Additional Instructions: You were seen in the emergency department today for evaluation of a puncture wound to the sole of your foot. In our department you had a full physical examination performed, had an x-ray of your foot that showed a small amount of dirt in the cut itself but no other foreign body, but I am concerned that you may be developing an infection in that area. We have started you on 2 antibiotics, please take all of this medication until it is gone, even if you start to feel better. You need to follow-up with your primary care provider in the next few days to ensure that the antibiotics are doing her job, and you are not experiencing any adverse side effects. Please use Tylenol 1000 mg every 6 hours as needed for pain, and keep the area clean and dry. Please use topical antibiotic ointment as well as bandaging to keep the area from becoming soiled. Please follow-up with your primary care provider in the next few days to discuss this visit and any symptoms that change, worsen, or persist. Thank you for allowing us to be part of your care. HPI General Mode of arrival: ambulatory . Date/Time Provider Initiated Documentation: 12/13/24 19:20 . Limitations to Documentation: no limitations . Information obtained by: patient and old records reviewed . HPI Narrative: This is a 34-year-old female patient presenting for evaluation of a left foot injury. The patient was in a fresh body of water yesterday, states she was barefoot, is not sure what she stepped on but noted blood in her shoe later that evening. She noted a puncture wound to the sole of her foot, cleaned it out with peroxide and took some naproxen at home for pain management. She reports that she feels worsening swelling, pain with movement of the toes, and some tingling in the area. Last tetanus shot 2021. No other injuries reported. Related Data Home Medications ?Medication ?Instructions ?Recorded ?Confirmed lamotrigine 100 mg tablet 150 mg PO DAILY 03/25/23 12/13/24 vilazodone 10 mg (7)-20 mg () 40 dose pk PO DIRECTED 03/25/23 12/13/24 tablets in a titration pack (Viibryd) erenumab-aooe 140 mg/mL 140 mg subcut QMONTH #3 mL 02/08/24 12/13/24 subcutaneous auto-injector (Aimovig Autoinjector) ubrogepant 100 mg tablet (Ubrelvy) 100 mg PO ONCE #16 tabs 02/10/24 12/13/24 methylphenidate HCl 27 mg 27 mg PO DAILY 09/26/24 12/13/24 tablet,extended release 24 hr (Concerta) methotrexate 15 mg PO QWEEK 10/15/24 12/13/24 ciprofloxacin HCl 250 mg tablet 750 mg (3 x 250 mg) PO Q12H 7 days 12/13/24 (Cipro) #42 tabs methylphenidate HCl 36 mg 36 mg PO DAILY 12/13/24 12/13/24 tablet,extended release 24 hr (Concerta) sulfamethoxazole 800 1 tab PO Q12H 7 days #14 tabs 12/13/24 mg-trimethoprim 160 mg tablet (Bactrim DS) Previous Rx's ?Medication ?Instructions ?Recorded erenumab-aooe 140 mg/mL 140 mg subcut QMONTH #3 mL 02/08/24 subcutaneous auto-injector (Aimovig Autoinjector) ubrogepant 100 mg tablet (Ubrelvy) 100 mg PO ONCE #16 tabs 02/10/24 ciprofloxacin HCl 250 mg tablet 750 mg (3 x 250 mg) PO Q12H 7 days 12/13/24 (Cipro) #42 tabs sulfamethoxazole 800 1 tab PO Q12H 7 days #14 tabs 12/13/24 mg-trimethoprim 160 mg tablet (Bactrim DS) Allergies Allergy/AdvReac Type Severity Reaction Status Date / Time ibuprofen Allergy Severe Skin Rash Verified 12/13/24 19:25 paroxetine (From Paxil) Allergy Severe throat Verified 12/13/24 19:25 swells penicillin G Allergy Severe Anaphylaxis Verified 12/13/24 19:25 codeine Allergy Intermediate HIVES Verified 12/13/24 19:25 General Stated Complaint: Laceration FRITZ: 4 Exam Narrative Exam Narrative: Gen: Awake and alert, in no apparent distress HEENT: Non-icteric sclera Neck: Supple Lungs: No apparent respiratory distress, normal respiratory effort. CV: Appears well perfused Abdomen: Non-distended MSK: Moves 4 extremities without apparent limitation in ROM, with the exception of the left foot, patient has difficulty with motion of the small toe, preserved sensation and strong DP pulses with a regular rate and rhythm. Skin: Visualized skin without rashes, cyanosis. The plantar aspect of the left foot has a stellate puncture wound just proximal to the ball of the foot, hemostatic, no visualized foreign bodies, no purulent drainage. Swelling is appreciated around that area, with some redness. Neuro: Antalgic gait, no obvious focal deficits or facial asymmetry. Speaks in full, clear sentences. Psych: Appropriate for situation. Course Vital Signs Vital signs: Vital Signs Temperature 36.8 C 12/13/24 19:21 Pulse 102 H 12/13/24 19:21 Respiratory Rate 18 12/13/24 19:21 Blood Pressure 122/66 12/13/24 19:21 Pulse Oximetry 98 12/13/24 19:21 Temperature 36.8 C 12/13/24 19:21 Pulse 102 H 12/13/24 19:21 Respiratory Rate 18 12/13/24 19:21 Blood Pressure 122/66 12/13/24 19:21 Pulse Oximetry 98 12/13/24 19:21 Oxygen Delivery Method Room Air 12/13/24 19:21 Oxygen Flow Rate 0 12/13/24 19:21 Pain Level 6 12/13/24 19:21 Medical Decision Making This is a 34-year-old female patient presenting for evaluation of plantar puncture wound. Differential includes but is not limited to puncture wound, retained foreign body, certainly considered skin and soft tissue queen, abscess. Considered fracture and dislocation though the patient's mechanism of injury is less concerning for this. We will obtain an x-ray of the affected foot, performed wound cleansing and dressing once foreign bodies have been excluded. I do feel that this patient will be for prophylactic antibiosis, and note a history of anaphylaxis to penicillin. She was not wearing shoes, which is reassuring against Pseudomonas. She does not require a tetanus booster. - I independently reviewed the patient's x-ray imaging, which shows no fracture or dislocation but does show a punctate radiopaque foreign body, likely dirt in the superficial soft tissues. No other foreign body visualized, the wound was thoroughly cleansed and that small piece of dirt was visualized to have been removed. Bacitracin and bandages placed. Given the history of anaphylaxis to penicillin, I initiated the patient on ciprofloxacin and Bactrim for coverage of Pseudomonas and Staph aureus, and recommended outpatient PCP follow-up for reassessment. The patient was placed in a hard soled surgical shoe. At this time, the patient has had a full medical evaluation and is safe for discharge to home. They are hemodynamically stable, ambulatory, and tolerating PO. They are understanding of the follow-up plan and return precautions. They left our facility without incident. Erika Reddy MD Quality:[facility] Health Related Social Needs: No Data to Display [facility] All Active Problems (Updated 12/13/24 @ 20:05 by Erika Reddy MD) Puncture wound of plantar aspect of foot (Acute) History of penicillin allergy (Acute) Family history of thyroid disease in mother (Acute) Mother had thyroidectomy as well as MGM Right leg weakness (Acute) Right ankle instability (Acute) Migraine headache without aura (Acute) Migraine headache with aura (Acute) Migraine with status migrainosus (Acute) 10/22/21. prophylactic medication changed to Propranalol 20mg BID. Pt will f/u with Dr. Nunez Depression with anxiety (Chronic) Idiopathic small fiber peripheral neuropathy (Acute) Medical History Fibromyalgia History of prior with SGA History of anorexia nervosa PTSD (post-traumatic stress disorder) Pt. states nothing is a potential trigger ADHD Opioid dependence No MAT for 6 years Tobacco use Hx of varicella Idiopathic peripheral neuropathy Surgical History Status post primary low transverse section 10/20/2021. Arrest of labor. Family History Mother Devic's syndrome Headache Sister Cancer bone marrow cancer Social History Smoking/Tobacco Use Status: Current-Occasional Tobacco Type: e-cigarettes Smoking risk assessment performed?: Yes Alcohol Intake: current Alcohol Intake frequency: a few times a month Alcohol type: beer Drug use: Rarely Substance use type: marijuana Details: last time smoked over a year per pt. Adopted: No Household members: children Housing: house Number of Children: 2 current occupation: [employer] working Pets and animals: Yes ([employer]) Current gender identity: female What is your relationship status?: never Panel score (0-1 are the most socially isolated patients): 0 What type of physical activity do you participate in: none Seatbelt use: sometimes Do you feel safe at home: Yes Do you feel safe in your relationship?: Yes History History 2 Para 2 Hx # Term Pregnancies 2 Multiple births 0 Hx # Pregnancies 0 Ectopic pregnancies 0 AB induced 0 Hx Number of Living Children 2 AB spontaneous 0 Past Pregnancies Del. Date GA/Weeks # Preg Succ Route Wgt Sex Labor Lgth Anesth esia Location Prov Complic 04/11/13 40 No vaginal 2409.709 g Female 14 regional Anea 10/20/21 39 No 4082.331 g Male Ganesh Hernandez Delivery Date: 04/11/13 Last Updated by: Leilani Putnam CNM SGA, Rachelle Delivery Date: 10/20/21 Last Updated by: ARI Hunter
[2024-12-13] MEDS: Acetaminophen 500 MG TAB 1000 MG PO (19:57)
[2024-12-13] MEDS: Sulfameth/Trimeth DS TAB 1 TAB PO (20:18)
[2024-12-13] MEDS: Ciprofloxacin 250 MG TAB 750 MG PO (20:18)
--- NOTE | 2024-12-13 20:42 | DI.VRAD_ITS ---
PROCEDURE INFORMATION: Exam: XR Left Foot Exam date and time: 12/13/2024 7:51 PM Age: 34 years old Clinical indication: Pain; Foot and other: Plantar puncture wound; Left TECHNIQUE: Imaging protocol: Radiologic exam of the left foot. Views: 3 or more views. COMPARISON: No relevant prior studies available. FINDINGS: Bones/joints: No acute bony fracture or dislocation identified. There are no periosteal reactions or bony destruction. The phalanges are intact. The metatarsal bones are intact. The midfoot and hindfoot show normal alignment. Soft tissues: There is subtle subcutaneous irregularity beneath the head of the 5th metatarsal bone. This may represent soft tissue injury or puncture wound. No soft tissue gas or foreign body identified. The patient has a clinical history of a puncture wound but the exact location is not included in the history. IMPRESSION: 1. No acute bony change identified. 2. Suspect a soft tissue injury beneath the head of the 5th metatarsal bone but no underlying bony abnormality or foreign body identified. Dictated and Authenticated by: Adolfo Sutton MD. Orderin [facility]. Dwayne James MD
--- NOTE | 2024-12-14 06:53 | NUR.NOTE ---
Access chart to get the discharge diagnosis and demographic sheet for [facility] billing requisition. Nursing Note:
== END 2024-12-13 20:22 | disposition home or self-care (01) ==
PROVIDERS: Emergency Provider Emergency Medicine; PCP Nurse Practitioner Family
DX: S91.332A Puncture wound without foreign body, left foot, initial encounter (principal); F17.290 Nicotine dependence, other tobacco product, uncomplicated; W22.8XXA Striking against or struck by other objects, initial encounter; Y93.01 Activity, walking, marching and hiking; Y92.89 Other specified places as the place of occurrence of the external cause
CPT/HCPCS: 99283; 73630

== ENCOUNTER 2025-01-28 01:06 | Emergency (ER) | payer MEDICAID, SELFPAY ==
--- NOTE | 2025-01-28 01:00 | RT.EKG_ITS ---
APPROVED REPORT Exam: Resting ECG Reason for Exam: SOB Patient Location: E HR:84 bpm ECG Measurements Heart Rate 84 AXIS NJ 166 P 46 QRSd 82 QRS 62 QT 344 T 61 QTc 408 Conclusion Sinus rhythm...normal P axis, V-rate 60- 99 Physician: No delta wave, epsilon wave, or evidence of brugada
[2025-01-28 01:08] VITALS: BP 111/82; PULSE 92; RESP 20; TEMP 36.1; O2SAT 99
[2025-01-28 01:15] VITALS: RESP 18
--- NOTE | 2025-01-28 01:56 | ED.GENADUL_ITS ---
Discharge Plan Disposition Patient Disposition: Home Condition: Good Discharge Details Clinical Impression: Panic attack Primary Care Provider: Avis Koch ED Provider: Damon Rodas Home Meds and New Rx's Prescriptions: No Action lamotrigine 100 mg tablet 150 mg PO DAILY Ubrelvy 100 mg tablet 100 mg PO ONCE Qty: 16 5RF Rx Instructions: as a single dose; may repeat once in >=2 hours after first dose if needed Aimovig Autoinjector 140 mg/mL auto-injector 140 mg subcut QMONTH Qty: 3 3RF methylphenidate HCl [Concerta] 27 mg tablet extended release 24hr 27 mg PO DAILY Patient Comments: TAKE ONE TABLET BY MOUTH EVERY DAY methotrexate 15 mg PO QWEEK Viibryd 10 mg (7)- 20 mg (23) tablets,dose pack 40 dose pk PO DIRECTED Patient Comments: TAKE ONE BY MOUTH EVERY DAY WITH FOOD methylphenidate HCl [Concerta] 36 mg tablet extended release 24hr 36 mg PO DAILY Patient Comments: TAKE ONE TABLET BY MOUTH EVERY MORNING DIRECTED Discharge Instructions Instructions: Panic Attack ED Additional Instructions: At this time your workup shows no significant abnormality. Your EKG is reassuring with no signs of heart dysrhythmia causing your passing out episodes. Your symptoms appear to be consistent with a panic attack brought about by certain negative stimulating factors in the community. If you notice any worsening of your symptoms, or any new symptoms such as vomiting, diarrhea, fever, chills, shortness of breath, chest pain, numbness, weakness, or fainting , please return immediately to the emergency department for reevaluation. Please follow up with your primary care provider as soon as possible for reassessment and reevaluation. As always, it was a pleasure participating in your medical care today. Referrals: Avis Koch [Primary Care Provider, Medicine] HPI General Date/Time Provider Initiated Documentation: 01/28/25 01:26 . HPI Narrative: 34-year-old female with past medical history of significant anxiety, depression, fibromyalgia, PTSD, ADHD, presents today for panic attack. Patient was at the bar and while there per family she saw someone that brought up significant negative memories of her past. After this she began having a panic attack, her panic would escalate to the point that she would pass out. She would then come to shortly thereafter and again be terrified and panicked. EMS did call for med control and gave 2.5 mg of IM Valium. She was brought to the ER for further assessment. Currently she states that I just want to get out of here, I do not want to be here, this makes me feel so anxious!. She denies any other complaints. She did have some alcohol earlier tonight. No history of sudden cardiac in the young family member. No other complaints at this time. Related Data Home Medications ?Medication ?Instructions ?Recorded ?Confirmed lamotrigine 100 mg tablet 150 mg PO DAILY 03/25/23 vilazodone 10 mg (7)-20 mg (23) 40 dose pk PO DIREC ROSALIND 03/25/23 01/28/25 tablets in a titration pack (Viibryd) erenumab-aooe 140 mg/mL 140 mg subcut QMONTH #3 mL 0 02/08/24 01/28/25 subcutaneous auto-injector (Aimovig Autoinjector) ubrogepant 100 mg tablet (Ubrelvy) 100 mg PO ONCE #16 tabs 02/10/24 01/28/25 methylphenidate HCl 27 mg 27 mg PO DAILY 09/26/2401/04 tablet,extended release 24 hr (Concerta) methotrexate 15 mg PO QWEEK 10/15/2401/04 methylphenidate HCl 36 mg 36 mg PO DAILY 12/13/2401/04 tablet,extended release 24 hr (Concerta) Previous Rx's ?Medication ?Instructions ?Recorded erenumab-aooe 140 mg/mL 140 mg subcut QMONTH #3 mL 0 02/08/24 subcutaneous auto-injector (Aimovig Autoinjector) ubrogepant 100 mg tablet (Ubrelvy) 100 mg PO ONCE #16 tabs 02/10/24 Allergies Allergy/AdvReac Type Severity Reaction Status Date / Time ibuprofen Allergy Severe Skin Rash Verified 01/28/25 01:18 paroxetine (From Paxil) Allergy Severe throat Verified 01/28/25 01:18 swells penicillin G Allergy Severe Anaphylaxis Verified 01/28/25 01:18 codeine Allergy Intermediate HIVES Verified 01/28/25 01:18 General Stated Complaint: Anxiety FRITZ: 3 Exam Narrative Exam Narrative: 1.Const: Well-nourished, Well-developed, appearing stated age 2.Eyes: PERRL, no conjunctival injection, and symmetrical lids. 3.ENT: Atraumatic external nose and ears. Moist MM. Neck: Symmetric, trachea midline, No thyromegaly. 4.CVS: +S1/S2, Peripheral pulses 2+ and equal in all extremities. Brisk capillary refill in all extremities. 5.RESP: Unlabored respiratory effort. Clear to auscultation bilaterally. No wheezes rales or rhonchi 6.GI: Soft, Nontender/Nondistended, No hepatosplenomegaly. No guarding or rebound. 7.MSK: Normocephalic/Atraumatic, Extremities w/o deformity or ttp No cyanosis or clubbing, Normal movement of all extremities 8.Skin: Warm, Dry. No rashes or lesions. 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 Sensation grossly intact, no focal neurologic deficits. 10.Psych: (AAO) x3. Extremely anxious and paranoid, actively crying and looking around anxiously. Course Vital Signs Vital signs: Vital Signs Temperature 36.1 C L 01/28/25 01:08 Pulse 92 H 01/28/25 01:08 Respiratory Rate 20 01/28/25 01:08 Blood Pressure 111/82 01/28/25 01:08 Pulse Oximetry 99 01/28/25 01:08 Temperature 36.1 C L 01/28/25 01:08 Temperature Source Temporal Artery Scan 01/28/25 01:08 Pulse 92 H 01/28/25 01:08 Respiratory Rate 18 01/28/25 01:15 Respiratory Depth Normal 01/28/25 01:15 Blood Pressure 111/82 01/28/25 01:08 Pulse Oximetry 99 01/28/25 01:08 Oxygen Delivery Method Room Air 01/28/25 01:08 Oxygen Flow Rate 0 01/28/25 01:08 Pain Level 0 01/28/25 01:08 Medical Decision Making 34-year-old female with past medical history of significant anxiety, depression, fibromyalgia, PTSD, ADHD, presents today for panic attack. Patient was at the bar and while there per family she saw someone that brought up significant negat nir memories of her past. After this she began having a panic attack, her panic would escalate to the point that she would pass out. She would then come to shortly thereafter and again be terrified and panicked. EMS did call for med control and gave 2.5 mg of IM Valium. She was brought to the ER for further assessment. Currently she states that I just want to get out of here, I do not want to be here, this makes me feel so anxious!. She denies any other complaints. She did have some alcohol earlier tonight. No history of sudden cardiac in the young family member. No other complaints at this time. Exam demonstrates an extremely anxious appearing female, but is otherwise able to respond to questions but limited secondary to the severe anxiety at the moment. Symptoms appear clinically consistent with panic attacks, however out of an abundance of precaution, EKG was performed to rule out atypical dysrhythmia. EKG shows normal sinus rhythm, normal intervals, no evidence of Brugada syndrome, epsilon wave or delta wave. No other abnormalities. Patient was observed for over an hour in the ED, once her boyfriend arrived her symptoms notably improved and she is requesting discharge. She denies any other complaints at this time. At time of discharge symptoms have resolved, she shows no focal neurologic deficits. Discussed red flags for which to return. I have extensively reviewed the treatment plan and discharge instructions with the patient. I have addressed all patient concerns at this time. The patient was made aware of what symptoms to monitor for that would warrant a return to the emergency department. Discussed the plan with the patient, they demonstrate verbal understanding and agreement with our assessment and plan at this time. The documentation in this chart was dictated using [employer] dictation software. Please excuse any dictation errors. Patient was discharged in the care of both her boyfriend and another male friend. PFSH All Active Problems (Updated 01/28/25 @ 02:07 by Damon Rodas DO) Panic attack (Acute) History of penicillin allergy (Acute) Family history of thyroid disease in mother (Acute) Mother had thyroidectomy as well as MGM Right leg weakness (Acute) Right ankle instability (Acute) Migraine headache without aura (Acute) Migraine headache with aura (Acute) Migraine with status migrainosus (Acute) 10/22/21. prophylactic medication changed to Propranalol 20mg BID. Pt will f/u with Dr. Nunez Depression with anxiety (Chronic) Idiopathic small fiber peripheral neuropathy (Acute) Medical History Fibromyalgia History of prior with SGA History of anorexia nervosa PTSD (post-traumatic stress disorder) Pt. states nothing is a potential trigger ADHD Opioid dependence No MAT for 6 years Tobacco use Hx of varicella Idiopathic peripheral neuropathy Surgical History Status post primary low transverse section 10/20/2021. Arrest of labor. Family History Mother Devic's syndrome Headache Sister Cancer bone marrow cancer Social History Smoking/Tobacco Use Status: Current-Occasional Tobacco Type: e-cigarettes Smoking risk assessment performed?: Yes Alcohol Intake: current Alcohol Intake frequency: a few times a month Alcohol type: beer Drug use: Rarely Substance use type: marijuana Details: last time smoked over a year per pt. Adopted: No Household members: children Housing: house Number of Children: 2 current occupation: [employer] working Pets and animals: Yes ([employer]) Current gender identity: female What is your relationship status?: never Panel score (0-1 are the most socially isolated patients): 0 What type of physical activity do you participate in: none Seatbelt use: sometimes Do you feel safe at home: Yes Do you feel safe in your relationship?: Yes History History 2 Para 2 Hx # Term Pregnancies 2 Multiple births 0 Hx # Pregnancies 0 Ectopic pregnancies 0 AB induced 0 Hx Number of Living Children 2 AB spontaneous 0 Past Pregnancies Del. Date GA/Weeks # Preg Succ Route Wgt Sex Labor Lgth Anesth esia Location [facility] Complic 04/11/13 40 No vaginal 2409.709 g Female 14 regional Anea 10/20/21 39 No 4082.331 g Male Ganesh Hernandez Delivery Date: 04/11/13 Last Updated by: Leilani Putnam CNM SGA, Rachelle Delivery Date: 10/20/21 Last Updated by: ARI Hunter Have you Been Recently Intoxicated or Drunk Within the Last 30 days?: Yes Have you Ever Experienced Previous Episodes of Alcohol Withdrawal?: No Have you ever Experienced Withdrawal Seizures?: No Have you ever Experienced Delirium Tremens(DT)s?: No Have you ever undergone Alcohol Rehabilitation Treatment (i.e, inpt ot outpatient treatment programs)?: No Have you ever Experienced Blackouts?: No Have you ever Combined Alcohol with other Downers within the last 90 days?: No Have you ever Combined Alcohol with any other Substance of Abuse during the last 90 days?: No Positive Blood Alcohol level on Presentation? [PCS.BAL]: Unable to Obtain Evidence of Increased Autonomic Activity (i.e. HR>120, tremor, sweating, agitation, nausea)?: No Result: 1
== END 2025-01-28 02:15 | disposition home or self-care (01) ==
PROVIDERS: Emergency Provider Student in an Organized Health Care Education/Training Program; PCP Nurse Practitioner Family
DX: F41.0 Panic disorder [episodic paroxysmal anxiety] (principal); F17.210 Nicotine dependence, cigarettes, uncomplicated
CPT/HCPCS: 93005; 99283; 93010

== ENCOUNTER 2025-02-06 20:42 | Observation (INO) | payer MEDICAID, SELFPAY ==
[2025-02-06 20:46] VITALS: BP 127/75; PULSE 84; RESP 16; TEMP 36.6; O2SAT 98
--- NOTE | 2025-02-06 21:00 | DI.CT_ITS ---
Exam(s) CT ABDOMEN PELVIS W EXAM: CT ABDOMEN PELVIS W CLINICAL HISTORY: LLQ pain TECHNIQUE: Imaging Protocol: Axial computed tomography images with coronal and sagittal reformatted images were created and reviewed. CONTRAST MATERIAL: Intravenous: Omnipaque 350 Contrast volume:75 mL Oral: No COMPARISON: CT ABD PELVIS WITH CONTRAST from 12/18/2016 FINDINGS: ABDOMEN: Lung Bases: No acute abnormality. Liver: Normal density. No measurable mass. Portal, Superior Mesenteric, and Splenic Veins: Unremarkable. Gallbladder and Biliary Tract: No radiodense calculus or dilation. Pancreas: Normal density, no abnormal calcifications or inflammatory process. Spleen: Normal. Adrenals: No masses seen. Kidneys: There is an area of decreased attenuation in the inferior aspect of the left kidney. The right kidney is unremarkable. No radiodense stones or obstructive uropathy. No masses seen. Abdominal Aorta: Abdominal portion non-dilated. Bowel: No obstruction or bowel wall thickening. Appendix is unremarkable. Peritoneal Cavity: No ascites, collection or mesenteric inflammatory response. No free air. Lymph Nodes: Within normal limits. Bones: Within normal limits for the patient's age. Soft Tissues: Unremarkable. PELVIS: Bladder: Symmetric distention, no gross wall thickening. Reproductive Organs: There is a 4.1 x 3.2 cm left ovarian cyst. Lymph Nodes: Within normal limits. Bones: Within normal limits for the patient's age. IMPRESSION: 1. 4.1 x 3.2 cm left ovarian cyst. If there is concern for or variant pathology such is torsion, pelvic ultrasound should be obtained. 2. Area of decreased attenuation in the inferior cortex of the left kidney. This may represent a pyelonephritis. There is no evidence of nephrolithiasis or obstructive uropathy. Please correlate clinically. A follow-up CT scan of the abdomen and pelvis may be considered for further evaluation. 3. The preliminary [facility] report was reviewed. Unexpected findings RADIATION DOSE DELIVERED: 339.65mGy.cm Total DLP DATA REPOSITORY: All CT scans at this facility are submitted to the National Radiology Data Registry (NRDR) Dose Index Registry (DIR) with the [employer] (ACR). RADIATION OPTIMIZATION: All CT scans at this facility use at least one of these dose optimization techniques: automated exposure control; mA and/or kV adjustment per patient size (includes targeted exams where dose is matched to clinical indication); or iterative reconstruction.
--- NOTE | 2025-02-06 21:14 | ED.GENADUL_ITS ---
Discharge Plan Discharge Details Chief Complaint: Abd Prob Primary Care Provider: Avis Koch ED Provider: Juana Dhaliwal Home Meds and New Rx's Prescriptions: No Action lamotrigine 100 mg tablet 150 mg PO DAILY methylphenidate HCl [Concerta] 27 mg tablet extended release 24hr 27 mg PO DAILY Patient Comments: TAKE ONE TABLET BY MOUTH EVERY DAY methotrexate 15 mg PO QWEEK Viibryd 10 mg (7)- 20 mg (23) tablets,dose pack 40 dose pk PO DIRECTED Patient Comments: TAKE ONE BY MOUTH EVERY DAY WITH FOOD methylphenidate HCl [Concerta] 36 mg tablet extended release 24hr 36 mg PO DAILY Patient Comments: TAKE ONE TABLET BY MOUTH EVERY MORNING DIRECTED HPI General Date/Time Provider Initiated Documentation: 02/06/25 21:08 . HPI Narrative: The patient is a 34-year-old female with a history of migraine headaches who comes the emergency department for left-sided abdominal pain. The patient repo rts that while she was preparing food for her child around 5:00 this evening she developed abrupt pain on the left upper part of her abdomen. Reports she was at her baseline health prior. Reports the pain is making her feel nauseous. Reports prior to this she had normal bowel movements. Denies urinary symptoms either. Denies any fevers or chills. Denies any cough, chest pain or shortness of breath. Denies history of similar type problems in the past. Denies any trauma or injury to the region. Denies any recent upper respiratory illness symptoms or sore throats but does report that her mouth and throat feel very dry right now. Reports she had not taken any medication to help with her symptoms. Reports symptoms persisted so finally came to the emergency department for evaluation. Related Data Home Medications Medication Instructions Recorded Confirmed lamotrigine 100 mg tablet 150 mg PO DAILY 03/25/2310/28 vilazodone 10 mg (7)-20 mg (23) 40 dose pk PO DIREC ROSALIND 03/25/23 02/06/25 tablets in a titration pack (Viibryd) methylphenidate HCl 27 mg 27 mg PO DAILY 09/26/240 10/28 tablet,extended release 24 hr (Concerta) methotrexate 15 mg PO QWEEK 10/15/2410/28 methylphenidate HCl 36 mg 36 mg PO DAILY 12/13/240 10/28 tablet,extended release 24 hr (Concerta) Allergies Allergy/AdvReac Type Severity Reaction Status Date / Time ibuprofen Allergy Severe Skin Rash Verified 02/06/25 20:56 paroxetine (From Paxil) Allergy Severe throat Verified 02/06/25 20:56 swells penicillin G Allergy Severe Anaphylaxis Verified 02/06/25 20:56 codeine Allergy Intermediate HIVES Verified 02/06/25 20:56 General Stated Complaint: Abd Prob FRITZ: 3 Review of Systems Narrative: Review of systems are negative except as mentioned. Exam Narrative Exam Narrative: General appearance: The patient is alert, has no immediate need for airway protection and no signs of toxicity. HEENT: Oral mucosal membranes are dry. Respiratory: There are no retractions. Lungs are clear to auscultation. Cardiovascular: Regular in rate and rhythm. Radial pulses are intact and equal. Gastrointestinal: The abdomen is soft and nondistended with normal bowel sounds. The patient has left upper quadrant tenderness to palpation without rebound tenderness, guarding or rigidity. The rest of her abdomen is soft and nontender to palpation throughout. Neurological: The patient is alert, awake and oriented x 3. Skin: Warm and dry. Extremities: No CVA tenderness is noted to palpation bilaterally. Course Vital Signs Vital signs: Vital Signs Temperature 36.6 C 02/06/25 20:46 Pulse 84 02/06/25 20:46 Respiratory Rate 16 02/06/25 20:46 Blood Pressure 127/75 02/06/25 20:46 Pulse Oximetry 98 02/06/25 20:46 Temperature 36.6 C 02/06/25 20:46 Temperature Source Tympanic 02/06/25 20:46 Pulse 84 02/06/25 20:46 Respiratory Rate 16 02/06/25 20:46 Blood Pressure 127/75 02/06/25 20:46 Blood Pressure Position Supine 02/06/25 20:46 Pulse Oximetry 98 02/06/25 20:46 Oxygen Delivery Method Room Air 02/06/25 20:46 Oxygen Flow Rate 0 02/06/25 20:46 Pain Level 6 02/06/25 20:46 Lab/Test Results Lab/Test Results: POC- Test(urine) Negative Medical Decision Making I told the patient of plan for blood work and imaging studies. The patient declined pain or nausea medication currently saying she is going to tough it o ut. The patient's blood work and urinalysis are back and they are unremarkable. Patient has since changed her mind regarding pain medication and would only like to try Tylenol so IV Tylenol has been ordered for her. CAT scan is back in patient is found to have left adnexal cystic lesion suspicious for ovarian cyst. Given the abrupt nature of the patient's pain in the setting I cannot definitively rule out ovarian torsion as etiology of her symptoms. I did explain this to the patient and my recommendation if needed for further workup. Radiology is calling US tech to see if they are willing to come to do US study. US techs have not called back. I subsequently spoke with [employer] national account director, Dr. Washington and she is on her way to the evaluate the patient. Dr. Washington is has evaluated the patient. She will try to get a hold of radiology now. In the meantime, the patient was signed out to Dr. Rodas. Imaging Data Radiologic Study: Imaging: CT Scan (abdomen and pelvis) Radiologist's impression: 1. Left adnexal cystic lesion suspicious for an ovarian cyst. This may be the etiology of the patient's pain. Of note, ovarian torsion can not be excluded on this study. If there is a high clinical suspicion for left ovarian torsion, pelvic ultrasound is recommended to evaluate for blood flow to the left ovary. 2. Normal appendix. PFSH All Active Problems (Updated 01/28/25 @ 02:07 by Damon Rodas DO) Panic attack (Acute) History of penicillin allergy (Acute) Family history of thyroid disease in mother (Acute) Mother had thyroidectomy as well as MGM Right leg weakness (Acute) Right ankle instability (Acute) Migraine headache without aura (Acute) Migraine headache with aura (Acute) Migraine with status migrainosus (Acute) 10/22/21. prophylactic medication changed to Propranalol 20mg BID. Pt will f/u with Dr. Nunez Depression with anxiety (Chronic) Idiopathic small fiber peripheral neuropathy (Acute) Medical History Fibromyalgia History of prior with SGA History of anorexia nervosa PTSD (post-traumatic stress disorder) Pt. states nothing is a potential trigger ADHD Opioid dependence No MAT for 6 years Tobacco use Hx of varicella Idiopathic peripheral neuropathy Surgical History Status post primary low transverse section 10/20/2021. Arrest of labor. Family History Mother Devic's syndrome Headache Sister Cancer bone marrow cancer Social History Smoking/Tobacco Use Status: Current-Occasional Tobacco Type: e-cigarettes Smoking risk assessment performed?: Yes Alcohol Intake: current Alcohol Intake frequency: a few times a month Alcohol type: beer Drug use: Rarely Substance use type: marijuana Details: last time smoked over a year per pt. Adopted: No Household members: children Housing: house Number of Children: 2 current occupation: [employer] working Pets and animals: Yes ([employer]) Current gender identity: female What is your relationship status?: never Panel score (0-1 are the most socially isolated patients): 0 What type of physical activity do you participate in: none Seatbelt use: sometimes Do you feel safe at home: Yes Do you feel safe in your relationship?: Yes History History 2 Para 2 Hx # Term Pregnancies 2 Multiple births 0 Hx # Pregnancies 0 Ectopic pregnancies 0 AB induced 0 Hx Number of Living Children 2 AB spontaneous 0 Past Pregnancies Del. Date GA/Weeks # Preg Succ Route Wgt Sex Labor Lgth Anesth esia Location [facility] 04/11/13 40 No vaginal 2409.709 g Female 14 regional Anea 10/20/21 39 No 4082.331 g Male Ganesh Hernandez Delivery Date: 04/11/13 Last Updated by: Leilani Putnam CNM SGA, Rachelle Delivery Date: 10/20/21 Last Updated by: ARI Hunter
[2025-02-06 21:20] VITALS: PULSE 86; O2SAT 98
[2025-02-06 21:22] LABS: Abs Immature Grans 0.02 10^3/uL (0.0-0.06); HCT 38.6 % (36.0-46.0); HGB 13.4 g/dL (11.2-15.7); Immature Grans % 0.2 %; MCH 32.0 pg (27.0-33.0); MCHC 34.7 % (32.0-36.0); MCV 92 fL (80-95); MPV 10.2 fL (8.0-11.0); Platelet Count 230 10^3/uL (130-400); RBC 4.19 10^6/uL (3.93-5.22); RDW 12.7 % (11.7-14.6); RDW-SD 43.1 fL; WBC 8.69 10^3/uL (4.4-10.8)
[2025-02-06] MEDS: Omnipaque 350 MG/ML 100 ML BTL 75 ML IJ (21:24)
[2025-02-06] MEDS: Normal Saline - Diluent 50 ML VIAL IJ (21:25)
[2025-02-06 21:29] LABS: Glucose Negative (Negative)
[2025-02-06 21:40] LABS: ALT 24 U/L (14-59); AST 18 U/L (15-37); Albumin 3.8 g/dL (3.4-5.0); Alkaline Phosphatase 66 U/L (46-116); Anion Gap 5.2 mmol/L (3-11); BUN 14 mg/dL (7-18); Bilirubin, Total 0.2 mg/dL (0.2-1.0); CO2 30.8 mmol/L (21.0-32.0); Calcium 8.8 mg/dL (8.5-10.1); Chloride 104 mmol/L (98-107); Glucose 110 mg/dL (74-106); Lipase 49 U/L (<78); Potassium 3.7 mmol/L (3.5-5.1); Sodium 140 mmol/L (136-145); Total Protein 7.0 g/dL (6.4-8.2)
[2025-02-06 21:41] LABS: HCG Qual (Serum) Negative
--- NOTE | 2025-02-06 22:12 | DI.[facility]_ITS ---
PROCEDURE INFORMATION: Exam: CT Abdomen And Pelvis With Contrast Exam date and time: 02/06/2025 9:22 PM Age: 34 years old Clinical indication: Other: Llq pain TECHNIQUE: Imaging protocol: Computed tomography of the abdomen and pelvis with contrast. Contrast material: OMNIPAQUE 350; Contrast volume: 75 ml; Contrast route: INTRAVENOUS (IV); COMPARISON: US OB GIOVANNI WEIGHT 09/30/2021 3:38 PM FINDINGS: Lungs: Lung bases are clear. Liver: The liver has a normal appearance. Gallbladder and biliary ducts: The gallbladder is unremarkable. No biliary ductal dilatation. Pancreas: The pancreas demonstrates normal size. No pancreatic ductal dilatation. Spleen: The spleen demonstrates normal size. Adrenal glands: The adrenal glands have a normal appearance. Kidneys and ureters: No nephrolithiasis or hydronephrosis. No hydroureter or ureterolithiasis. Stomach and bowel: The bowel demonstrates overall normal caliber and wall thickness. Appendix: The appendix is thin walled. Intraperitoneal space: Unremarkable. No free air. No significant fluid collection. Vasculature: The IVC and aorta have a normal appearance. Lymph nodes: No enlarged lymph nodes. Urinary bladder: The bladder is thin walled and fluid filled. Reproductive: The uterus has a normal appearance. There is a low-density 3.0 x 3.5 cm left adnexal cystic lesion. Bones/joints: Bones have a normal appearance. No acute fracture or suspicious bone lesion. Soft tissues: Unremarkable. IMPRESSION: 1. Left adnexal cystic lesion suspicious for an ovarian cyst. This may be the etiology of the patient's pain. Of note, ovarian torsion can not be excluded on this study. If there is high clinical suspicion for left ovarian torsion, pelvic ultrasound is recommended to evaluate for blood flow to the left ovary. 2. Normal appendix. Dictated and Authenticated by: Dunia Wen MD. Orderin Isra Arias MD
[2025-02-06 22:18] VITALS: BP 110/74; PULSE 76; RESP 16; O2SAT 99
[2025-02-06 22:19] VITALS: PULSE 76; O2SAT 99
[2025-02-06 22:20] VITALS: BP 110/74; PULSE 70
[2025-02-06] MEDS: ACETAMINOPHEN 1,000 MG/100 ML BTL 400 MG IVPB (22:29)
--- NOTE | 2025-02-06 23:59 | HPE_ITS ---
Date of service: 02/07/25 Time of Service: 00:00 Assessment and Plan Assessment and plan (1) Left lateral abdominal pain: Status: Acute Assessment and plan: 34-year-old -0-0-2 ( x 1, x 1) with history of BTL presents to the hospital for left-sided abdominal pain over the course of my assessment with the patient she reports that the pain, while still present over the left upper quadrant, does seem to be involving the left pelvis. Multiple attempts were made to contact the on-call ultrasonographers for urgent imaging to rule out ovarian torsion; however, we were unable to get a hold of one. Therefore, I performed a transabdominal and transvaginal ultrasound several hours after the CT scan. The identified cyst on the left side was stable in appearance as far as size, and was noted to have blood flow (see images). Patient is without white count and there is no evidence of free fluid within the pelvis; she denies any concerns for STIs. She has no history of kidney stones and her urine is without blood. I currently do not find evidence of ovarian torsion, and her pain pattern is overall reassuring that this is not gynecological related. However, given the reported severity of the pain according to the patient and her initial presentation of nausea secondary to the pain, I have planned to observe the patient overnight for pain control and and management of nausea, with the plan to repeat the ultrasound with the linen worker in the morning. Labs will be repeated as well. History of Present Illness Narrative: 36-year-old -0-0-2 (h/o x1, x 1) with history of tubal ligation presents to the emergency department for sudden onset of left sided abdominal pain earlier this evening. Patient states she was fixing dinner for her children when she suddenly began to have an intense pain on the left side. She states that she tried to eat around 5 PM but was too uncomfortable and nauseous to eat. She ultimately came to the emergency department as the pain worsened. Patient reports a longstanding history of disruptively uncomfortable menses; first day last menstrual period was about 5 to 6 weeks ago and she was last sexually active 1 week ago; however, patient has a history of a tubal ligation, and this pain is unlike pain she has historically had with her periods. She does note a longstanding history of chronic pain issues stating she has been diagnosed with fibromyalgia and is undergoing workup for suspected psoriatic arthritis. She denies any relationship of the pain to urinating or defecating habits. She has no history of STDs. She did recently resume cigarette smoking. As we are discussing the nature of her pain, she indicates the origin of the pain as being left upper abdomen with radiation down towards the left pelvis. The pain is ever present but colicky in 1 to 2-minute episodes intermittently and unpredictably. Review of Systems All systems reviewed & are unremarkable except as noted in HPI and below PFSH All Active Problems (Updated 02/07/25 @ 01:17 by Sybil Washington, ) Left lateral abdominal pain (Acute) Ovarian cyst (Acute) Panic attack (Acute) History of penicillin allergy (Acute) Family history of thyroid disease in mother (Acute) Mother had thyroidectomy as well as MGM Right leg weakness (Acute) Right ankle instability (Acute) Migraine headache without aura (Acute) Migraine headache with aura (Acute) Migraine with status migrainosus (Acute) 10/22/21. prophylactic medication changed to Propranalol 20mg BID. Pt will f/u with Dr. Nunez Depression with anxiety (Chronic) Idiopathic small fiber peripheral neuropathy (Acute) Medical History Fibromyalgia History of prior with SGA History of anorexia nervosa PTSD (post-traumatic stress disorder) Pt. states nothing is a potential trigger ADHD Opioid dependence No MAT for 6 years Tobacco use Hx of varicella Idiopathic peripheral neuropathy Surgical History Status post primary low transverse section 10/20/2021. Arrest of labor. Family History Mother Devic's syndrome Headache Sister Cancer bone marrow cancer Social History Smoking/Tobacco Use Status: Current-Occasional Tobacco Type: e-cigarettes Smoking risk assessment performed?: Yes Alcohol Intake: current Alcohol Intake frequency: a few times a month Alcohol type: beer Drug use: Rarely Substance use type: marijuana Details: last time smoked over a year per pt. Adopted: No Household members: children Housing: house Number of Children: 2 current occupation: [employer] working Pets and animals: Yes ([employer]) Current gender identity: female What is your relationship status?: never Panel score (0-1 are the most socially isolated patients): 0 What type of physical activity do you participate in: none Seatbelt use: sometimes Do you feel safe at home: Yes Do you feel safe in your relationship?: Yes History History 2 2 Para 2 Hx # Term Pregnancies 2 Multiple births 0 Hx # Pregnancies 0 Ectopic pregnancies 0 AB induced 0 Hx Number of Living Children 2 AB spontaneous 0 Past Pregnancies Del. Date GA/Weeks # Preg Succ Route Wgt Sex Labor Lgth Anesth esia Location [facility] 04/11/13 40 No vaginal 5 lb 5 oz Female 14 regional A k[place] 10/20/21 39 No 9 lb Male Jerica [facility] Delivery Date: 04/11/13 Last Updated by: Leilani Putnam CNM SGA, Rachelle Delivery Date: 10/20/21 Last Updated [facility]: [facility] Allergies and Home Medications Allergies Allergy/AdvReac Type Severity Reaction Status Date / Time ibuprofen Allergy Severe Skin Rash Verified 02/06/25 20:56 paroxetine (From Paxil) Allergy Severe throat Verified 02/06/25 20:56 swells penicillin G Allergy Severe Anaphylaxis Verified 02/06/25 20:56 codeine Allergy Intermediate HIVES Verified 02/06/25 20:56 Home Medications Medication Instructions Recorded Confirmed Type lamotrigine 100 mg tablet 150 mg PO DAILY 03/25/2310/28 History vilazodone 10 mg (7)-20 mg (23) 40 dose pk PO DIREC ROSALIND 03/25/23 02/06/25 History tablets in a titration pack (Viibryd) methylphenidate HCl 27 mg 27 mg PO DAILY 09/26/2410/28 History tablet,extended release 24 hr (Concerta) methotrexate 15 mg PO QWEEK 10/15/2410/28 History methylphenidate HCl 36 mg 36 mg PO DAILY 12/13/2410/28 History tablet,extended release 24 hr (Concerta) Exam Narrative Exam Narrative: General: Well-nourished female resting flat on her back on the gurney. Noted to ambulate to and from the bathroom with minimal issue without assistance Pulmonary: No evidence of respiratory distress Abdomen: Soft, nondistended, tender to palpation along the rib angle of the left upper quadrant and all along the left side down into the pelvis Extremities: No swelling Psych: Calm, cooperative Results Imaging Additional studies: CT abdomen pelvis with IV contrast findings no evidence of nephrolithiasis or hydronephrosis. No hydroureter or uterolithiasis. Spleen demonstrates a normal size. The bowel demonstrates overall normal caliber and wall thickness. No free air within the intraperitoneal space. No lymphadenopathy. There is a low density 3 x 3.5 cm in the left adnexa. Transabdominal and transvaginal ultrasound as performed by myself approximately 3 hours after the time of the CT scan find a similar cyst within the left adnexa stable in appearance and with blood flow. No evidence of free fluid. Labs 02/06/25 21:05 02/06/25 21:05 Labs: Laboratory Results - last 24 hr 02/06/25 21:05 WBC 8.69 RBC 4.19 Hgb 13.4 Hct 38.6 MCV 92 MCH 32.0 MCHC 34.7 RDW 12.7 Plt Count 230 MPV 10.2 Immature Gran % 0.2 Neutrophils % 52.7 Lymphocytes % 39.1 Monocytes % 6.0 Eosinophils % 1.4 Basophils % 0.6 Nucleated RBC % 0.0 Absolute Neutrophils 4.58 Absolute Lymphocytes 3.40 Absolute Monocytes 0.52 Absolute Eosinophils 0.12 Absolute Basophils 0.05 Sodium 140 Potassium 3.7 Chloride 104 Carbon Dioxide 30.8 Anion Gap 5.2 BUN 14 Creatinine 0.9 Est GFR (CKD-EPI 2020) 87.11 Glucose 110 H Calcium 8.8 Total Bilirubin 0.2 AST 18 ALT 24 Alkaline Phosphatase 66 Total Protein 7.0 Albumin 3.8 Lipase 49 Serum HCG, Qual Negative Urine Color Yellow Urine Clarity Clear Urine pH 7.5 Ur Specific [place] 1.015 Urine Protein Negative Urine Ketones Negative Urine Blood Negative Urine Nitrite Negative Urine Bilirubin Negative Urine Urobilinogen 0.2 Ur Leukocyte Esterase Negative Urine Glucose Negative Last Vital Signs Temp 98 F 02/06/25 20:46 Pulse 76 02/06/25 22:18 Resp 16 02/06/25 22:18 BP 110/74 02/06/25 22:18 Pulse Ox 99 02/06/25 22:18 WW Pocus Exam Exam testing Date/Time of Exam: Date of exam: 02/07/2025 Time of exam: 12:58 am Pelvic Pain & Abnormal Uterine Bleeding Uterus: Normal Ovaries: Other (3+ cm left adnexal cyst; ovary appreciated to have blood flow) Other Findings: No free fluid noted in the pelvis of endometrial canal Coding for Transabdominal exam: Complete exam Coding for Transvaginal exam: Complete exam Time Spent Time spent with Patient: 40-54 minutes Time was spent: preparing to see the patient(eg.review tests), obtaining and/or reviewing separately otained hiistory, ordering medications,tests, procedures, referring, communicating with other health morning caregiver, indepentently interpreting results, counseling the patient and care coordination
--- NOTE | 2025-02-07 | DI.US_ITS ---
Exam(s) US PELVIS TRANSVAGINAL EXAM: US PELVIS TRANSVAGINAL CLINICAL HISTORY: left sided abdominal and pelvic pain. TECHNIQUE: Transabdominal and transvaginal pelvic ultrasound was performed using standard protocol. COMPARISON: US US OB GIOVANNI WEIGHT from 09/30/[address] ABDOMEN PELVIS W from 02/06/2025 FINDINGS: UTERUS: Position: Anteverted. Size: 9.0 long by 4.6 AP by 5.2 transverse cm Endometrium: 0.7 cm. Normal for patient's menstrual status. Myometrium: Unremarkable. Cervix: Unremarkable. OVARIES: Right: 3.6 x 2.5 x 3.0 cm Cyst or mass: No suspicious cystic or solid masses. Left: 4.8 x 3.2 x 4.4 cm Cyst or mass: No suspicious cystic or solid masses. There is a 3.9 x 2.2 x 3.8 cm septated cyst on the left ovary corresponding to the finding seen on the CT examination from 02/06/2025. DOPPLER: Color: Symmetric and uniform flow to both ovaries. CUL-DE-SAC: Free fluid: None. Other: None. IMPRESSION: 1. Normal-appearing uterus with endometrial stripe within normal limits. 2. 3.9 x 2.2 x 3.8 cm septated left ovarian cyst. This is likely physiologic. 3. Normal arterial and venous blood flow seen to both ovaries. There is no evidence of torsion. DATA REPOSITORY:
[2025-02-07 00:09] VITALS: PULSE 75; O2SAT 98
[2025-02-07 00:10] VITALS: BP 118/60; PULSE 65; O2SAT 98
[2025-02-07 00:11] VITALS: PULSE 67; O2SAT 99
--- NOTE | 2025-02-07 01:06 | ED.PROG_ITS ---
Date of service: 02/07/25 Time of Service: 01:[address] Otto has seen and evaluated the patient. She performed personal bedside ultrasound of the patient. She does not see evidence to suggest torsion, however she will be admitting the patient for continued pain control and monitoring. I have extensively reviewed the treatment plan with the patient. I have addressed all patient concerns at this time. I have also discussed the plan with the admitting physician and they agree with the current assessment and plan and have agreed to assume responsibility for the patient. All parties demonstrate verbal understanding and agreement with our assessment and plan at this time. The documentation in this chart was dictated using [employer] dictation software. Please excuse any dictation errors. Discharge Plan Disposition Patient Disposition: Admit to [facility] Discharge Details Clinical Impression: Ovarian cyst Primary Care Provider: Avis Koch ED Provider: Damon Rodas Home Meds and New Rx's Prescriptions: No Action lamotrigine 100 mg tablet 150 mg PO DAILY methylphenidate HCl [Concerta] 27 mg tablet extended release 24hr 27 mg PO DAILY Patient Comments: TAKE ONE TABLET BY MOUTH EVERY DAY methotrexate 15 mg PO QWEEK Viibryd 10 mg (7)- 20 mg (23) tablets,dose pack 40 dose pk PO DIRECTED Patient Comments: TAKE ONE BY MOUTH EVERY DAY WITH FOOD methylphenidate HCl [Concerta] 36 mg tablet extended release 24hr 36 mg PO DAILY Patient Comments: TAKE ONE TABLET BY MOUTH EVERY MORNING DIRECTED
[2025-02-07] MEDS: Lactated Ringers 1,000 ML 150 ML IV (02:15)
[2025-02-07] MEDS: Pantoprazole 40 MG VIAL IVP (02:33)
[2025-02-07] MEDS: Normal Saline Flush 10 ML SYR IVP (02:41)
[2025-02-07] MEDS: Ondansetron 4 MG/2 ML VIAL IVP (02:41)
[2025-02-07] MEDS: Ketorolac 30 MG/ML VIAL IVP ×2 (03:08→09:03)
[2025-02-07 07:14] LABS: Abs Immature Grans 0.02 10^3/uL (0.0-0.06); HCT 38.6 % (36.0-46.0); HGB 13.2 g/dL (11.2-15.7); Immature Grans % 0.3 %; MCH 31.7 pg (27.0-33.0); MCHC 34.2 % (32.0-36.0); MCV 93 fL (80-95); MPV 10.0 fL (8.0-11.0); Platelet Count 190 10^3/uL (130-400); RBC 4.16 10^6/uL (3.93-5.22); RDW 12.7 % (11.7-14.6); RDW-SD 43.2 fL; WBC 6.85 10^3/uL (4.4-10.8)
[2025-02-07] MEDS: ACETAMINOPHEN 1,000 MG/100 ML BAG 400 MG IVPB (07:16)
[2025-02-07 07:23] VITALS: BP 117/70; PULSE 69; RESP 16; TEMP 36.8
--- NOTE | 2025-02-07 10:43 | W.PM.DS.N ---
Date of service: 02/07/25 Time of Service: 10:43 DS: Diagnosis Discharge Diagnosis (1) Left lateral abdominal pain: Status: Acute Discharge Plan Disposition Patient Disposition: Home Condition: Good Discharge Details Reason For Visit: left sided abdominal pain Admit Date/Time: 02/07/25 00:48 Admit Provider: Sybil Washington Attending Provider: Sybil Washington Primary Care Provider: Avis Koch Hospital Course Hospital Course: 34-year-old -0-0-2 (h/o x1, x1) with history of tubal ligation presented on the evening of 02/06/2025 for sudden onset left-sided abdominal pain. She was noted to be nauseous secondary to the pain and dry heaving upon presentation. A CT scan incidentally discovered a 3+ centimeter cyst on the left ovary with no other significant findings. Of note, blood work was reassuring (normal white count, hemoglobin, platelets, liver enzymes, and lipase). Despite the reassuring blood work, patient reported notable pain that was disruptive. I performed a transabdominal and transvaginal ultrasound at bedside and identified no evidence of ovarian torsion. Ms. Schmidt was then admitted overnight for observation and pain management. Her pain was well-controlled on Toradol with Tylenol and she was noted by the nurse to sleep once admitted. Her abdominal exam remained reassuring the following morning and an official repeat ultrasound confirmed presence of 3+ centimeter left ovarian cyst (likely physiologic) with good blood flow to the ovary and no evidence of free fluid in the pelvis. Her overall clinical presentation was reassuring. We had a discussion about prolonging her stay for a workup with internal medicine for evaluation of alternative diagnoses versus outpatient follow-up based on how she felt about her pain; patient opted for outpatient follow-up. This note is being sent to her PCP to encourage close follow-up for further workup of left-sided pain. Patient encouraged to have low threshold for seeking immediate medical reevaluation if symptoms progress or further symptoms develop. Recommendations for Follow Up Recommended tests to be ordered by follow up provider: Follow up with PCP Home Meds and New Rx's Prescriptions: New docusate sodium [Colace] 100 mg Capsule 100 mg PO BID Qty: 20 0RF simethicone 80 mg tablet,chewable 80 mg PO BID PRN10 Days Qty: 30 0RF pantoprazole 20 mg tablet,delayed release (DR/EC) 20 mg PO DAILY 28 Days Qty: 28 0RF Continued lamotrigine 100 mg tablet 150 mg PO DAILY methylphenidate HCl [Concerta] 27 mg tablet extended release 24hr 27 mg PO DAILY Patient Comments: TAKE ONE TABLET BY MOUTH EVERY DAY methotrexate 15 mg PO QWEEK Viibryd 10 mg (7)- 20 mg (23) tablets,dose pack 40 dose pk PO DIRECTED Patient Comments: TAKE ONE BY MOUTH EVERY DAY WITH FOOD methylphenidate HCl [Concerta] 36 mg tablet extended release 24hr 36 mg PO DAILY Patient Comments: TAKE ONE TABLET BY MOUTH EVERY MORNING DIRECTED Discharge Instructions Additional Instructions: – Eat a well-rounded diet – Ambulate regularly and engage in light activity – Take your medications as prescribed – Please be sure to attend your follow-up visits – If you have any concerns including fevers/chills, lightheadedness, visual changes, persistent headaches unresponsive to Tylenol, persistent nausea/vomiting, persistent / worsening abdominal pain, excessive vaginal bleeding, or any other concerns, please have a low threshold for seeking immediate medical evaluation and/or reaching out to our clinic at [phone]. Activity:: Activity as Tolerated Equipment/Supplies:: No Equipment Needed Diet:: As Tolerated Discharge Orders Discharge Orders: Discharge Order (Routine); Ordered 02/07/25 Ordered By: Sybil Washington DS: Summary Time Spent with Patient providing and/or coordinating discharge services: Greater than 30 minutes Status at Discharge Functional status at discharge: independent ambulation Overall status at discharge: patient is progressing back to baseline Mental Status: mental status grossly normal Speech and Movement: speech and movement normal Mood: congruent mood Affect: normal affect Exam Narrative Exam Narrative: General: Well nourished female in no immediate distress laying flat on her back in the hospital bed Pulm: No overt respiratory distress Abd: Soft, nondistended, no palpable masses Ext: No swelling Affect: Calm, cooperative Psych Mental Status: mental status grossly normal Speech and Movement: speech and movement normal Mood: congruent mood Affect: normal affect DS: Data Vitals/I&O Vitals and I&O: Vital Signs Temperature 98.2 F 02/07/25 07:23 Temperature Source Temporal Artery Scan 02/07/25 07:23 Pulse 69 02/07/25 07:23 Respiratory Rate 16 02/07/25 07:23 Blood Pressure 117/70 02/07/25 07:23 Blood Pressure Mean 85 02/07/25 07:23 Blood Pressure Position Supine 02/06/25 20:46 Pulse Oximetry 99 02/07/25 00:11 Oxygen Delivery Method Room Air 02/07/25 07:23 Oxygen Flow Rate 0 02/07/25 07:23 Pain Level 2 02/07/25 04:08 Intake & Output 02/06/25 02/06/25 02/07/25 11:59 23:59 11:59 Intake Total 100 / 100 100 / 100 Output Total 100 / 100 Balance 100 / 100 0 / 0 Weight 140 lb Intake: IV 100 / 100 100 / 100 Output: Urine 100 / 100 Data Completed and Pending Labs on day of discharge: Labs from last 24 hours 02/07/25 02/07/25 02/07/25 07:00 03:00 01:00 WBC 6.85 RBC 4.16 Hgb 13.2 Hct 38.6 MCV 93 MCH 31.7 MCHC 34.2 RDW 12.7 Plt Count 190 MPV 10.0 Immature Gran % 0.3 Neutrophils % 44.0 Band Neutrophils % Lymphocytes % 45.3 Atypical Lymphs % Monocytes % 7.7 Eosinophils % 2.0 Basophils % 0.7 Metamyelocytes % Myelocytes % Promyelocytes % Other Cells % Nucleated RBC % 0.0 Absolute Neutrophils 3.01 Absolute Lymphocytes 3.10 Absolute Monocytes 0.53 Absolute Eosinophils 0.14 Absolute Basophils 0.05 RBC Morphology Polychromasia Hypochromasia Poikilocytosis Basophilic Stippling Anisocytosis Microcytosis Macrocytosis Spherocytes Tear Drop Cells Ovalocytes Stomatocytes [place] Bodies [place] Cells/Echinocytes Acanthocytes (Spur) Schistocytes Sodium Potassium Chloride Carbon Dioxide Anion Gap BUN Creatinine Est GFR (CKD-EPI 2020) Glucose Calcium Magnesium Total Bilirubin AST ALT Alkaline Phosphatase Troponin I Cancelled Cancelled Total Protein Albumin Lipase Serum HCG, Qual Urine Color Urine Clarity Urine pH Ur Specific [place] Urine Protein Urine Ketones Urine Blood Urine Nitrite Urine Bilirubin Urine Urobilinogen Ur Leukocyte Esterase Urine Glucose 02/07/25 02/06/25 00:00 21:05 WBC Cancelled 8.69 RBC Cancelled 4.19 Hgb Cancelled 13.4 Hct Cancelled 38.6 MCV Cancelled 92 MCH Cancelled 32.0 MCHC Cancelled 34.7 RDW Cancelled 12.7 Plt Count Cancelled 230 MPV Cancelled 10.2 Immature Gran % Cancelled 0.2 Neutrophils % Cancelled 52.7 Band Neutrophils % Cancelled Lymphocytes % Cancelled 39.1 Atypical Lymphs % Cancelled Monocytes % Cancelled 6.0 Eosinophils % Cancelled 1.4 Basophils % Cancelled 0.6 Metamyelocytes % Cancelled Myelocytes % Cancelled Promyelocytes % Cancelled Other Cells % Cancelled Nucleated RBC % Cancelled 0.0 Absolute Neutrophils Cancelled 4.58 Absolute Lymphocytes Cancelled 3.40 Absolute Monocytes Cancelled 0.52 Absolute Eosinophils Cancelled 0.12 Absolute Basophils Cancelled 0.05 RBC Morphology Cancelled Polychromasia Cancelled Hypochromasia Cancelled Poikilocytosis Cancelled Basophilic Stippling Cancelled Anisocytosis Cancelled Microcytosis Cancelled Macrocytosis Cancelled Spherocytes Cancelled Tear Drop Cells Cancelled Ovalocytes Cancelled Stomatocytes Cancelled [place] Bodies Cancelled Neha Cells/Echinocytes Cancelled Acanthocytes (Spur) Cancelled Schistocytes Cancelled Sodium Cancelled 140 Potassium Cancelled 3.7 Chloride Cancelled 104 Carbon Dioxide Cancelled 30.8 Anion Gap Cancelled 5.2 BUN Cancelled 14 Creatinine Cancelled 0.9 Est GFR (CKD-EPI 2020) Cancelled 87.11 Glucose Cancelled 110 H Calcium Cancelled 8.8 Magnesium Cancelled Total Bilirubin Cancelled 0.2 AST Cancelled 18 ALT Cancelled 24 Alkaline Phosphatase Cancelled 66 Troponin I Cancelled Total Protein Cancelled 7.0 Albumin Cancelled 3.8 Lipase 49 Serum HCG, Qual Negative Urine Color Yellow Urine Clarity Clear Urine pH 7.5 Ur Specific [place] 1.015 Urine Protein Negative Urine Ketones Negative Urine Blood Negative Urine Nitrite Negative Urine Bilirubin Negative Urine Urobilinogen 0.2 Ur Leukocyte Esterase Negative Urine Glucose Negative PFSH All Active Problems Left lateral abdominal pain (Acute) Ovarian cyst (Acute) Panic attack (Acute) History of penicillin allergy (Acute) Family history of thyroid disease in mother (Acute) Mother had thyroidectomy as well as MGM Right leg weakness (Acute) Right ankle instability (Acute) Migraine headache without aura (Acute) Migraine headache with aura (Acute) Migraine with status migrainosus (Acute) 10/22/21. prophylactic medication changed to Propranalol 20mg BID. Pt will f/u with Dr. Nunez Depression with anxiety (Chronic) Idiopathic small fiber peripheral neuropathy (Acute) Medical History Fibromyalgia History of prior with SGA History of anorexia nervosa PTSD (post-traumatic stress disorder) Pt. states nothing is a potential trigger ADHD Opioid dependence No MAT for 6 years Tobacco use Hx of varicella Idiopathic peripheral neuropathy Surgical History Status post primary low transverse section 10/20/2021. Arrest of labor. Family History Mother Devic's syndrome Headache Sister Cancer bone marrow cancer Social History Smoking/Tobacco Use Status: Current-Occasional Tobacco Type: e-cigarettes Smoking risk assessment performed?: Yes Alcohol Intake: current Alcohol Intake frequency: a few times a month Alcohol type: beer Drug use: Rarely Substance use type: marijuana Details: last time smoked over a year per pt. Adopted: No Household members: children Housing: house Number of Children: 2 current occupation: [employer] working Pets and animals: Yes ([employer]) Current gender identity: female What is your relationship status?: never Panel score (0-1 are the most socially isolated patients): 0 What type of physical activity do you participate in: none Seatbelt use: sometimes Do you feel safe at home: Yes Do you feel safe in your relationship?: Yes History History 2 Para 2 Hx # Term Pregnancies 2 Multiple births 0 Hx # Pregnancies 0 Ectopic pregnancies 0 AB induced 0 Hx Number of Living Children 2 AB spontaneous 0 Past Pregnancies Del. Date GA/Weeks # Preg Succ Route Wgt Sex Labor Lgth Anesthesia Location Prov Complic 04/11/13 40 No vaginal 5 lb 5 oz Female 14 [facility] 10/20/21 39 No 9 lb Male Jerica Hernandez Delivery Date: 04/11/13 Last Updated by: Leilani Putnam CNM SGA, Rachelle Delivery Date: 10/20/21 Last Updated by: ARI Hunter Time Spent with Patient Time Spent with Patient: <45 minutes Time was spent: preparing to see the patient(eg.review tests), obtaining and/or reviewing separately otained hiistory, ordering medications,tests, procedures, referring, communicating with other health day care attendant, indepentently interpreting results, counseling the patient and care coordination
[2025-02-07] MEDS: lamoTRIgine 100 MG TAB 150 MG PO (10:49)
[2025-02-07] MEDS: Docusate Sodium 100 MG CAP PO (10:49)
== END 2025-02-07 12:07 | disposition home or self-care (01) ==
LOC: ER 02-07 01:32 → OBS 02-07 02:07
PROVIDERS: Emergency Medicine; Admitting Provider Obstetrics & Gynecology; Emergency Provider Student in an Organized Health Care Education/Training Program; PCP Nurse Practitioner Family; Visit Provider Obstetrics & Gynecology
DX: R10.32 Left lower quadrant pain (principal); N83.292 Other ovarian cyst, left side; R11.0 Nausea; G43.009 Migraine without aura, not intractable, without status migrainosus; F90.9 Attention-deficit hyperactivity disorder, unspecified type; F41.8 Other specified anxiety disorders; G60.8 Other hereditary and idiopathic neuropathies; F17.290 Nicotine dependence, other tobacco product, uncomplicated; M79.7 Fibromyalgia
CPT/HCPCS: 00123; 36415; 76857; 80053; 81025; 83690; 96360; 96361; 96365; 99285; 74177; 76830; 76856; 81003; 83735; 84484; 84703; 85025; 99235; G0378; J0131; J1885; J2405; J2470; J3490

== ENCOUNTER 2025-05-11 20:16 | Emergency (ER) | payer MEDICAID, SELFPAY ==
[2025-05-11 20:19] VITALS: BP 119/61; PULSE 75; RESP 20; TEMP 36.7; O2SAT 99
[2025-05-11 20:21] VITALS: BP 119/61; PULSE 75; RESP 20; TEMP 36.7; O2SAT 99
--- NOTE | 2025-05-11 20:31 | ED.GENADUL_ITS ---
Discharge Plan Disposition Patient Disposition: Home Condition: Stable Discharge Details Clinical Impression: Streptococcal pharyngitis Primary Care Provider: Avis Koch ED Provider: Chaparro Frey Meds and New Rx's Prescriptions: New azithromycin 250 mg tablet 250 mg PO DAILY 6 Days Qty: 6 0RF Rx Instructions: start on day 2 of therapy Continued lamotrigine 100 mg tablet 150 mg PO DAILY methotrexate 15 mg PO QWEEK Viibryd 10 mg (7)- 20 mg (23) tablets,dose pack 40 dose pk PO DIRECTED Patient Comments: TAKE ONE BY MOUTH EVERY DAY WITH FOOD methylphenidate HCl [Concerta] 36 mg tablet extended release 24hr 36 mg PO DAILY Patient Comments: TAKE ONE TABLET BY MOUTH EVERY MORNING DIRECTED docusate sodium [Colace] 100 mg Capsule 100 mg PO BID Qty: 20 0RF Discharge Instructions Instructions: Sore throat in adults, Strep Throat ED Stand Alone Forms: Portal Information Discharge Data Discharge Physician: Chaparro Frey HPI General Date/Time Provider Initiated Documentation: 05/11/25 20:27 . HPI Narrative: Patient presents emergency department complaining of a sore throat for 2 days states that she has had episodes of strep throat and was concerned. Denies any fever denies any chills Related Data Home Medications Medication Instructions Recorded Confirmed lamotrigine 100 mg tablet 150 mg PO DAILY 03/25/2312/28 vilazodone 10 mg (7)-20 mg (23) 40 dose pk PO DIREC ROSALIND 03/25/23 05/11/25 tablets in a titration pack (Viibryd) methotrexate 15 mg PO QWEEK 10/15/2412/28 methylphenidate HCl 36 mg 36 mg PO DAILY 12/13/2412/28 tablet,extended release 24 hr (Concerta) docusate sodium 100 mg capsule 100 mg PO BID #20 caps 02/07/25 05/11/25 (Colace) azithromycin 250 mg tablet 250 mg PO DAILY 6 days #6 t abs 05/11/25 Previous Rx's Medication Instructions Recorded docusate sodium 100 mg capsule 100 mg PO BID #20 caps 02/07/25 (Colace) azithromycin 250 mg tablet 250 mg PO DAILY 6 days #6 t abs 05/11/25 Allergies Allergy/AdvReac Type Severity Reaction Status Date / Time ibuprofen Allergy Severe Skin Rash Verified 05/11/25 20:23 paroxetine (From Paxil) Allergy Severe throat Verified 05/11/25 20:23 swells penicillin G Allergy Severe Anaphylaxis Verified 05/11/25 20:23 codeine Allergy Intermediate HIVES Verified 05/11/25 20:23 General Stated Complaint: Sorethroat FRITZ: 4 Review of Systems Narrative: Review of Systems: Constitutional: No fevers, chills, sweats Eye: No recent visual problems ENT: No ear pain, nasal congestion, Respiratory: No shortness of breath, cough Cardiovascular: No Chest pain, palpitations, syncope Gastrointestinal: No nausea, vomiting, diarrhea Genitourinary: No hematuria Jimmy/Lymph: Negative for bruising tendency, swollen lymph glands Endocrine: Negative for excessive thirst, excessive hunger Musculoskeletal: No back pain, neck pain, joint pain, muscle pain, decreased range of motion Integumentary: No rash, pruritus, abrasions Neurologic: Alert & oriented X 4 Psychiatric: No anxiety, depression Exam Narrative Exam Narrative: Exam; vitals signs as reported above normal Constitutional; In no acute distress, afebrile General: cooperative, healthy appearing, comfortable and no acute distress HEENT: Head: normal to inspection, no palpable skull fracture and normocephalic atraumatic Eyes: : appearance normal, both eyes and all related structures EOM intact bilaterally Pupils: PERRL : conjunctiva normal Direct ophthalmoscopy: normal light reflex, normal conjunctiva, normal visual acuity Ears: Normal TM, normal external canal Nose: normal no rhinorreha oropharynx hyperemic with posterior exudate Neck no JVD, supple non tender Neck: normal visual inspection, full ROM and no lymphadenopathy Chest: normal inspection of the chest Respiratory : normal respiratory effort and able to speak in complete sentences no wheezing no rales Cardio Rate: regular rate, rhythm: regular rhythm normal heart sounds S1 and S2 no murmurs, gallops, or rubs GI : normal to inspection, normal bowel sounds, soft, non tender, non distended, no organomegaly Back/Spine/ no CVA tenderness Thoracic/Lumbar Spine: no tenderness or deformities Skin no rashes or lesions Neuro: patient alert oriented x 4 and no meningeal signs, Cranial Nerves: CN's II-XI intact bilaterally, Cognition: normal cognition, Speech: speech normal, Gait: normal gait, Depp tendon reflexes normal 2+ muscle strength 5/5 bilaterally Extremities, no edema, full range of motion, normal strength Course Vital Signs Vital signs: Vital Signs Temperature 36.7 C 05/11/25 20:19 Pulse 75 05/11/25 20:19 Respiratory Rate 20 05/11/25 20:19 Blood Pressure 119/61 05/11/25 20:19 Pulse Oximetry 99 05/11/25 20:19 Temperature 36.7 C 05/11/25 20:21 Pulse 75 05/11/25 20:21 Respiratory Rate 20 05/11/25 20:21 Blood Pressure 119/61 05/11/25 20:21 Blood Pressure Position Sitting 05/11/25 20:21 Pulse Oximetry 99 05/11/25 20:21 Oxygen Delivery Method Room Air 05/11/25 20:21 Oxygen Flow Rate 0 05/11/25 20:21 Medical Decision Making MDM: Summary: Patient presents with a sore throat and tested positive for strep will be treated with azithromycin patient allergic to penicillin Data Review Analysis All the data on this patient was reviewed by me including laboratory and imaging studies as well as bedside studies performed by me Independent review of Studies Imaging Lab: Labs show positive strep a Risk Stratification: Patient with strep pharyngitis who will be treated with azithromycin and will be discharged home Differential Diagnosis: 1. Strep pharyngitis 2. Viral pharyngitis 3. Bronchitis 4. 5. Consultants: Shared disposition: Patient was transposition will do according Impression: PFSH All Active Problems (Updated 05/11/25 @ 21:12 by Chaparro Frey MD) Streptococcal pharyngitis (Acute) Left lateral abdominal pain (Acute) Ovarian cyst (Acute) Panic attack (Acute) History of penicillin allergy (Acute) Family history of thyroid disease in mother (Acute) Mother had thyroidectomy as well as MGM Right leg weakness (Acute) Right ankle instability (Acute) Migraine headache without aura (Acute) Migraine headache with aura (Acute) Migraine with status migrainosus (Acute) 10/22/21. prophylactic medication changed to Propranalol 20mg BID. Pt will f/u with Dr. Nunez Depression with anxiety (Chronic) Idiopathic small fiber peripheral neuropathy (Acute) Medical History Fibromyalgia History of prior with SGA History of anorexia nervosa PTSD (post-traumatic stress disorder) Pt. states nothing is a potential trigger ADHD Opioid dependence No MAT for 6 years Tobacco use Hx of varicella Idiopathic peripheral neuropathy Surgical History Status post primary low transverse section 10/20/2021. Arrest of labor. Family History Mother Devic's syndrome Headache Sister Cancer bone marrow cancer Social History Smoking/Tobacco Use Status: Current-Occasional Tobacco Type: e-cigarettes Smoking risk assessment performed?: Yes Alcohol Intake: current Alcohol Intake frequency: a few times a month Alcohol type: beer Drug use: Rarely Substance use type: marijuana Details: last time smoked over a year per pt. Adopted: No Household members: children Housing: house Number of Children: 2 current occupation: [employer] working Pets and animals: Yes ([employer]) Current gender identity: female What is your relationship status?: never Panel score (0-1 are the most socially isolated patients): 0 What type of physical activity do you participate in: none Seatbelt use: sometimes Do you feel safe at home: Yes Do you feel safe in your relationship?: Yes History History 2 Para 2 Hx # Term Pregnancies 2 Multiple births 0 Hx # Pregnancies 0 Ectopic pregnancies 0 AB induced 0 Hx Number of Living Children 2 AB spontaneous 0 Past Pregnancies Del. Date GA/Weeks # Preg Succ Route Wgt Sex Labor Lgth Anesth esia Location [facility] 04/11/13 40 No vaginal 2409.709 g Female 14 regional [facility] 10/20/21 39 No 4082.331 g Male Ganesh Hernandez Delivery Date: 04/11/13 Last Updated by: SHER Angel, Rachelle Delivery Date: 10/20/21 Last Updated by: ARI Hunter Have you Been Recently Intoxicated or Drunk Within the Last 30 days?: No Have you Ever Experienced Previous Episodes of Alcohol Withdrawal?: No Have you ever Experienced Withdrawal Seizures?: No Have you ever Experienced Delirium Tremens(DT)s?: No Have you ever undergone Alcohol Rehabilitation Treatment (i.e, inpt ot outpatient treatment programs)?: No Have you ever Experienced Blackouts?: No Have you ever Combined Alcohol with other Downers within the last 90 days?: No Have you ever Combined Alcohol with any other Substance of Abuse during the last 90 days?: No Positive Blood Alcohol level on Presentation? [PCS.BAL]: No Evidence of Increased Autonomic Activity (i.e. HR>120, tremor, sweating, agitation, nausea)?: No Result: 0
[2025-05-11] MEDS: Azithromycin 250 MG TAB 500 MG PO (21:23)
== END 2025-05-11 21:28 | disposition home or self-care (01) ==
PROVIDERS: Emergency Provider Emergency Medicine Emergency Medical Services; PCP Nurse Practitioner Family
DX: J02.0 Streptococcal pharyngitis (principal)
CPT/HCPCS: 99283 ×2; 87880

== ENCOUNTER 2025-05-14 10:56 | Emergency (ER) | payer MEDICAID, SELFPAY ==
[2025-05-14 10:59] VITALS: BP 111/68; PULSE 116; RESP 18; TEMP 36.9; O2SAT 98
[2025-05-14 11:02] VITALS: BP 111/68; PULSE 116; RESP 18; TEMP 36.9; O2SAT 98
--- NOTE | 2025-05-14 11:19 | DI.CT_ITS ---
Exam(s) CT NECK W EXAM: CT NECK W CLINICAL HISTORY: worsening strep throat, r/o abscess. TECHNIQUE: Imaging Protocol: Axial computed tomography images with coronal and sagittal reformatted images were created and reviewed. CONTRAST MATERIAL: Intravenous: Omnipaque 350 Contrast volume:100mL COMPARISON: CT NECK WITH CONTRAST from 12/26/2011 CT NECK WITH CONTRAST from 09/05/2015 FINDINGS: Visualized intracranial structures: Within normal limits. Orbits and orbital soft tissues: Within normal limits. Visualized paranasal sinuses: Within normal limits. Pharynx: Within normal limits. There is no evidence of pharyngeal abscess. Larynx: Within normal limits. Retropharyngeal space: Within normal limits. Parotids/submandibular: Within normal limits. Thyroid gland: Within normal limits. Lymphadenopathy: There are mildly enlarged lymph nodes seen in the neck which are likely reactive. Trachea: Within normal limits. Lung apices: Within normal limits. Bones: Within normal limits for the patient's age. Carotids/Jugular: Within normal limits. Soft tissues: Within normal limits. IMPRESSION: There is no evidence of an abscess. RADIATION DOSE DELIVERED: 308.45mGy.cm Total DLP 308.45mGy.cm Total DLP DATA REPOSITORY: All CT scans at this facility are submitted to the National Radiology Data Registry (NRDR) Dose Index Registry (DIR) with the [employer] (ACR). RADIATION OPTIMIZATION: All CT scans at this facility use at least one of these dose optimization techniques: automated exposure control; mA and/or kV adjustment per patient size (includes targeted exams where dose is matched to clinical indication); or iterative reconstruction.
--- NOTE | 2025-05-14 11:21 | ED.GENADUL_ITS ---
Discharge Plan Disposition Patient Disposition: Home Condition: Good Discharge Details Clinical Impression: Streptococcal pharyngitis Primary Care Provider: Avis Koch ED Provider: Rafaela Zuluaga Home Meds and New Rx's Prescriptions: New clindamycin HCl [Cleocin HCl] 300 mg capsule 300 mg PO TID 9 Days Qty: 27 0RF Continued lamotrigine 100 mg tablet 150 mg PO DAILY methotrexate 15 mg PO QWEEK Viibryd 10 mg (7)- 20 mg (23) tablets,dose pack 40 dose pk PO DIRECTED Patient Comments: TAKE ONE BY MOUTH EVERY DAY WITH FOOD methylphenidate HCl [Concerta] 36 mg tablet extended release 24hr 36 mg PO DAILY Patient Comments: TAKE ONE TABLET BY MOUTH EVERY MORNING DIRECTED docusate sodium [Colace] 100 mg Capsule 100 mg PO BID Qty: 20 0RF Discontinued azithromycin 250 mg tablet 250 mg PO DAILY 6 Days Qty: 6 0RF Rx Instructions: start on day 2 of therapy Discharge Instructions Stand Alone Forms: Portal Information HPI General Date/Time Provider Initiated Documentation: 05/14/25 11:08 . HPI Narrative: Radha is a 34-year-old female presents the emergency department today for evaluation of worsening sore throat despite treatment for strep. She reports that she started with symptoms on (4 days ago), including low-grade fever, body aches, and sore throat. She was diagnosed with strep throat that evening, started on azithromycin and initially felt improved the next day, but then symptoms started worsening again. She reports difficulty swallowing, lightheadedness, tachycardia, low-grade fever 99.9 degrees, neck pain all over her neck attributed to swollen lymph nodes, and mild headache behind her eyes. She has been trying to stay hydrated, drinking 0.8 electrolyte rich fluids throughout the day. Took 1 naproxen yesterday without improvement of symptoms. Denies recorded fever, trismus, congestion/cough other than attributed to fluids getting stuck in her throat, chest pain, difficulty breathing, nausea/vomiting, change in bowel or bladder function. Mild abdominal discomfort attributed to not eating. She does have a history of immunocompromise, takes Humira for RA and psoriasis. History of severe penicillin allergy with anaphylaxis. Also has fibromyalgia and chronic pain. Related Data Home Medications Medication Instructions Recorded Confirmed lamotrigine 100 mg tablet 150 mg PO DAILY 03/25/2303/30 vilazodone 10 mg (7)-20 mg (23) 40 dose pk PO DIREC ROSALIND 03/25/23 05/14/25 tablets in a titration pack (Viibryd) methotrexate 15 mg PO QWEEK 10/15/2403/30 methylphenidate HCl 36 mg 36 mg PO DAILY 12/13/2403/30 tablet,extended release 24 hr (Concerta) docusate sodium 100 mg capsule 100 mg PO BID #20 caps 02/07/25 05/14/25 (Colace) clindamycin HCl 300 mg capsule 300 mg PO TID 9 days #2 7 caps 05/14/25 (Cleocin HCl) Previous Rx's Medication Instructions Recorded docusate sodium 100 mg capsule 100 mg PO BID #20 caps 02/07/25 (Colace) clindamycin HCl 300 mg capsule 300 mg PO TID 9 days #2 7 caps 05/14/25 (Cleocin HCl) Allergies Allergy/AdvReac Type Severity Reaction Status Date / Time ibuprofen Allergy Severe Skin Rash Verified 05/14/25 11:02 paroxetine (From Paxil) Allergy Severe throat Verified 05/14/25 11:02 swells penicillin G Allergy Severe Anaphylaxis Verified 05/14/25 11:02 codeine Allergy Intermediate HIVES Verified 05/14/25 11:02 General Stated Complaint: Sorethroat FRITZ: 3 Exam Const General: cooperative, comfortable, no acute distress and well developed Nutritional Appearance: average body habitus and well nourished Orientation: alert and oriented x3 HENMT Head: normal to inspection Ears: hearing grossly normal bilaterally Mouth: oral mucosae normal Throat: abnormal tonsil bilaterally and uvula laterally displaced to the right Course Vital Signs Vital signs: Vital Signs Temperature 36.9 C 05/14/25 10:59 Pulse 116 H 05/14/25 10:59 Respiratory Rate 18 05/14/25 10:59 Blood Pressure 111/68 05/14/25 10:59 Pulse Oximetry 98 05/14/25 10:59 Temperature 36.9 C 05/14/25 11:02 Temperature Source Oral 05/14/25 11:02 Pulse 116 H 05/14/25 11:02 Respiratory Rate 18 05/14/25 11:02 Blood Pressure 111/68 05/14/25 11:02 Pulse Oximetry 98 05/14/25 11:02 Medical Decision Making Radha is a 34-year-old female presents the emergency department today for evaluation of worsening sore throat despite treatment for strep. She reports that she started with symptoms on (4 days ago), including low-grade fever, body aches, and sore throat. She was diagnosed with strep throat that evening, started on azithromycin and initially felt improved the next day, but then symptoms started worsening again. She reports difficulty swallowing, lightheadedness, tachycardia, low-grade fever 99.9 degrees, neck pain all over her neck attributed to swollen lymph nodes, and mild headache behind her eyes. She has been trying to stay hydrated, drinking 0.8 electrolyte rich fluids throughout the day. Took 1 naproxen yesterday without improvement of symptoms. Denies recorded fever, trismus, congestion/cough other than attributed to fluids getting stuck in her throat, chest pain, difficulty breathing, nausea/vomiting, change in bowel or bladder function. Mild abdominal discomfort attributed to not eating. She does have a history of immunocompromise, takes Humira for RA and psoriasis. History of severe penicillin allergy with anaphylaxis. Physical exam remarkable for uvula deviated towards the right. No trismus. Tonsils erythematous and swollen. Diffuse cervical and submandibular lymphadenopathy. Easy work of breathing, lung sounds clear bilaterally. Tachycardia noted, regular rhythm. Abdomen soft, nondistended, nontender to palpation. D/dx includes but is not limited to: Peritonsillar abscess, insufficiently treated strep pharyngitis, dehydration, electrolyte imbalance. Patient does not SIRS criteria. No red flags concerning for airway compromise at this time. I did review patient's previous ED visit, due to patient's penicillin allergy she was treated with azithromycin 250 mg x4 days after receiving 500 mg initial dose in ED. I independently interpreted the following tests: CBC notable for mild leukocytosis, white cell count 11.13. CMP unremarkable. CT neck unremarkable, no abscesses or acute processes noted. While in the emergency dept patient received first dose of clindamycin, IV fluids, Toradol for discomfort, and dexamethasone for inflammation. History and presentation most consistent with treatment resistant strep. Antibiotics switched to clindamycin. Reviewed discharge instructions with patient, including symptomatic management, importance of follow up with PCP, and red flags indicating need for return to emergency care. Pt voices agreement with plan of care Imaging Data Radiologic Study: Radiologist's impression: Exam(s) CT NECK W EXAM: CT NECK W CLINICAL HISTORY: worsening strep throat, r/o abscess. TECHNIQUE: Imaging Protocol: Axial computed tomography images with coronal and sagittal reformatted images were created and reviewed. CONTRAST MATERIAL: Intravenous: Omnipaque 350 Contrast volume:100mL COMPARISON: CT NECK WITH CONTRAST from 12/26/2011 CT NECK WITH CONTRAST from 09/05/2015 FINDINGS: Visualized intracranial structures: Within normal limits. Orbits and orbital soft tissues: Within normal limits. Visualized paranasal sinuses: Within normal limits. Pharynx: Within normal limits. There is no evidence of pharyngeal abscess. Larynx: Within normal limits. Retropharyngeal space: Within normal limits. Parotids/submandibular: Within normal limits. Thyroid gland: Within normal limits. Lymphadenopathy: There are mildly enlarged lymph nodes seen in the neck which are likely reactive. Trachea: Within normal limits. Lung apices: Within normal limits. Bones: Within normal limits for the patient's age. Carotids/Jugular: Within normal limits. Soft tissues: Within normal limits. IMPRESSION: There is no evidence of an abscess. PFSH All Active Problems (Updated 05/14/25 @ 12:59 by Rafaela Curiel) Streptococcal pharyngitis (Acute) Left lateral abdominal pain (Acute) Ovarian cyst (Acute) Panic attack (Acute) History of penicillin allergy (Acute) Family history of thyroid disease in mother (Acute) Mother had thyroidectomy as well as MGM Right leg weakness (Acute) Right ankle instability (Acute) Migraine headache without aura (Acute) Migraine headache with aura (Acute) Migraine with status migrainosus (Acute) 10/22/21. prophylactic medication changed to Propranalol 20mg BID. Pt will f/u with Dr. Nunez Depression with anxiety (Chronic) Idiopathic small fiber peripheral neuropathy (Acute) Medical History Fibromyalgia History of prior with SGA History of anorexia nervosa PTSD (post-traumatic stress disorder) Pt. states nothing is a potential trigger ADHD Opioid dependence No MAT for 6 years Tobacco use Hx of varicella Idiopathic peripheral neuropathy Surgical History Status post primary low transverse section 10/20/2021. Arrest of labor. Family History Mother Devic's syndrome Headache Sister Cancer bone marrow cancer Social History Smoking/Tobacco Use Status: Current-Occasional Tobacco Type: e-cigarettes Smoking risk assessment performed?: Yes Alcohol Intake: current Alcohol Intake frequency: a few times a month Alcohol type: beer Drug use: Rarely Substance use type: marijuana Details: last time smoked over a year per pt. Adopted: No Household members: children Housing: house Number of Children: 2 current occupation: [employer] working Pets and animals: Yes (hermit crab) Current gender identity: female What is your relationship status?: never Panel score (0-1 are the most socially isolated patients): 0 What type of physical activity do you participate in: none Seatbelt use: sometimes Do you feel safe at home: Yes Do you feel safe in your relationship?: Yes History History 2 Para 2 Hx # Term Pregnancies 2 Multiple births 0 Hx # Pregnancies 0 Ectopic pregnancies 0 AB induced 0 Hx Number of Living Children 2 AB spontaneous 0 Past Pregnancies Del. Date GA/Weeks # Preg Succ Route Wgt Sex Labor Lgth Anesth esia Location [facility] 04/11/13 40 No vaginal 2409.709 g Female 14 [facility] 10/20/21 39 No 4082.331 g Male Ganesh Hernandez Delivery Date: 04/11/13 Last Updated by: Leilani Putnam CNM [facility] [place] Delivery Date: 10/20/21 Last Updated by: ARI Hunter Have you Been Recently Intoxicated or Drunk Within the Last 30 days?: No Have you Ever Experienced Previous Episodes of Alcohol Withdrawal?: No Have you ever Experienced Withdrawal Seizures?: No Have you ever Experienced Delirium Tremens(DT)s?: No Have you ever undergone Alcohol Rehabilitation Treatment (i.e, inpt ot outpat ient treatment programs)?: No Have you ever Experienced Blackouts?: No Have you ever Combined Alcohol with other Downers within the last 90 days?: No Have you ever Combined Alcohol with any other Substance of Abuse during the last 90 days?: No Positive Blood Alcohol level on Presentation? [PCS.BAL]: No Evidence of Increased Autonomic Activity (i.e. HR>120, tremor, sweating, agitation, nausea)?: No Result: 0
[2025-05-14 11:48] LABS: Abs Immature Grans 0.03 10^3/uL (0.0-0.06); HCT 41.5 % (36.0-46.0); HGB 14.2 g/dL (11.2-15.7); Immature Grans % 0.3 %; MCH 31.4 pg (27.0-33.0); MCHC 34.2 % (32.0-36.0); MCV 92 fL (80-95); MPV 10.0 fL (8.0-11.0); Platelet Count 215 10^3/uL (130-400); RBC 4.52 10^6/uL (3.93-5.22); RDW 12.0 % (11.7-14.6); RDW-SD 40.4 fL; WBC 11.13 10^3/uL (4.4-10.8)
[2025-05-14] MEDS: Ketorolac 15 MG/ML VIAL IVP (11:48)
[2025-05-14] MEDS: Normal Saline 1,000 ML 1000 ML IV (11:49)
[2025-05-14] MEDS: Omnipaque 350 MG/ML 100 ML BTL IJ (11:59)
[2025-05-14] MEDS: Normal Saline - Diluent 50 ML VIAL IJ (11:59)
[2025-05-14] MEDS: Normal Saline Flush 10 ML SYR IVP (12:00)
[2025-05-14 12:18] LABS: ALT 24 U/L (14-59); AST 15 U/L (15-37); Albumin 4.1 g/dL (3.4-5.0); Alkaline Phosphatase 65 U/L (46-116); Anion Gap 5.9 mmol/L (3-11); BUN 13 mg/dL (7-18); Bilirubin, Total 0.4 mg/dL (0.2-1.0); CO2 31.1 mmol/L (21.0-32.0); Calcium 8.7 mg/dL (8.5-10.1); Chloride 101 mmol/L (98-107); Glucose 85 mg/dL (74-106); Potassium 3.9 mmol/L (3.5-5.1); Sodium 138 mmol/L (136-145); Total Protein 7.7 g/dL (6.4-8.2)
[2025-05-14] MEDS: Dexamethasone 10 MG/ML VIAL IVP (13:15)
[2025-05-14] MEDS: Clindamycin 300 MG CAP PO (13:20)
[2025-05-14] MEDS: Clindamycin 150 MG CAP, 12 CAPS/BTL 300 MG PO (13:22)
[2025-05-14 13:26] VITALS: PULSE 79; TEMP 36.5; O2SAT 100
== END 2025-05-14 13:23 | disposition home or self-care (01) ==
PROVIDERS: Emergency Provider Nurse Practitioner Family; PCP Nurse Practitioner Family
DX: J02.0 Streptococcal pharyngitis (principal)
CPT/HCPCS: 36415; 70491; 80053; 81025; 96361; 96374; 96375; 99285; 85025; 99284; J1100; J1885; J3490

== ENCOUNTER 2025-05-15 18:30 | Emergency (ER) | payer MEDICAID, SELFPAY ==
[2025-05-15 18:35] VITALS: BP 125/84; PULSE 87; RESP 22; TEMP 36.8; O2SAT 99
[2025-05-15 18:46] VITALS: BP 125/84; PULSE 87; RESP 22; TEMP 36.8; O2SAT 99
--- NOTE | 2025-05-15 19:00 | DI.RAD_ITS ---
Exam(s) XR CHEST 2V PA LATERAL EXAM: XR CHEST 2V PA LATERAL CLINICAL HISTORY: Cough, chills. TECHNIQUE: 2D digital imaging was performed. COMPARISON: No exams were available for comparison FINDINGS: 2 views: Heart size is normal. The mediastinum is not widened. Lungs are clear. No infiltrates nor pleural effusions. IMPRESSION: No acute pulmonary findings. DATA REPOSITORY: RADIATION DOSE DELIVERED:
--- NOTE | 2025-05-15 19:13 | ED.GENADUL_ITS ---
Discharge Plan Disposition Patient Disposition: Home Condition: Stable Discharge Details Clinical Impression: Streptococcal pharyngitis, Upper respiratory infection, viral Primary Care Provider: Avis Koch ED Provider: Erika Reddy Home Meds and New Rx's Prescriptions: New ketorolac 10 mg tablet 10 mg PO Q8H PRN5 Days Qty: 14 0RF Rx Instructions: maximum total duration of 5 days from all oral, intranasal, or parenteral formulations No Action lamotrigine 100 mg tablet 300 mg PO DAILY methotrexate 15 mg PO QWEEK Viibryd 10 mg (7)- 20 mg (23) tablets,dose pack 40 dose pk PO DIRECTED Patient Comments: TAKE ONE BY MOUTH EVERY DAY WITH FOOD methylphenidate HCl [Concerta] 36 mg tablet extended release 24hr 36 mg PO DAILY Patient Comments: TAKE ONE TABLET BY MOUTH EVERY MORNING DIRECTED docusate sodium [Colace] 100 mg Capsule 100 mg PO BID Qty: 20 0RF clindamycin HCl [Cleocin HCl] 300 mg capsule 300 mg PO TID 9 Days Qty: 27 0RF dextroamphetamine-amphetamine 30 mg capsule,extended release 24hr 30 mg PO Patient Comments: TAKE ONE CAPSULE BY MOUTH EVERY DAY Discharge Instructions Instructions: Upper Respiratory Infection ED Additional Instructions: You were seen in the emergency department today for evaluation of ongoing sore throat as well as the development of bodyaches, chills, and cough. In our department you had a full physical examination performed, and had reassuring vital signs. Your laboratory studies did not show any significant abnormalities, you do have a very slight elevation in your white blood cell count, your monotest was negative, and you had no evidence of dehydration. Your urine is not infected, and your COVID and influenza test was negative. Your potassium was slightly low, and you received a pill to replete this. Most people get all of the potassium and electrolytes that they need through their diet, you should consider supplementing with leafy greens, potatoes, bananas, etc. You had a chest x-ray that was negative for pneumonia and other other concerning findings. Your strep throat is being appropriately treated with clindamycin, please continue this medication until it is gone, even if you start to feel better. However, given that you have developed some bodyaches and shortness of breath and runny nose, I am concerned that you may also be developing a viral upper res piratory infection. I recommend that you continue to maintain good hydration, you may take Tylenol, 1000 mg every 6 hours for pain. Please take this without missing doses, and utilize the Toradol that I sent to your pharmacy for ongoing pain and fever. Do not take other NSAIDs such as your naproxen with this medication. Please follow-up with your primary care provider in the next few days to discuss this visit and any symptoms that change, worsen, or persist. Thank you for allowing us to be part of your care. Stand Alone Forms: Portal Information HPI General Mode of arrival: ambulatory . Date/Time Provider Initiated Documentation: 05/15/25 18:36 . Limitations to Documentation: no limitations . Information obtained by: patient and old records reviewed . HPI Narrative: This is a 34-year-old female patient with a past medical history significant for migraine headaches, and a recent diagnosis of strep pharyngitis on , presenting for evaluation of worsening symptoms. The patient reports that she was seen here yesterday given her ongoing symptoms, was started on clindamycin given a presumptive failure of treatment with azithromycin, had a CT scan of her neck that did not show peritonsillar abscess or other deep space neck infection. She had improvement in her symptoms with some Toradol and discharged home. She reports over the last 24 hours she has had worsening chills and discomfort in her bilateral neck, feels very stiff. She has not measured a fever, states that she has been able to drink water and stay well-hydrated. Nobody else in the home is having similar symptoms. She took some naproxen at 3 PM. The patient reports that she has developed a nonproductive cough, and has some associated body aches. She reports that she developed some bruise-like skin changes to her bilateral lateral thighs, which are sensitive but not itchy. No other skin changes reported. Related Data Home Medications Medication Instructions Recorded Confirmed lamotrigine 100 mg tablet 300 mg PO DAILY 03/25/2304/29 vilazodone 10 mg ()-20 mg () 40 dose pk PO DIREC ROSALIND 03/25/23 05/15/25 tablets in a titration pack (Viibryd) methotrexate 15 mg PO QWEEK 10/15/2405/06 methylphenidate HCl 36 mg 36 mg PO DAILY 06/10/25 11/1 0/25 tablet,extended release 24 hr (Concerta) docusate sodium 100 mg capsule 100 mg PO BID #20 caps 02/07/25 05/15/25 (Colace) clindamycin HCl 300 mg capsule 300 mg PO TID 9 days #2 7 caps 05/14/25 05/15/25 (Cleocin HCl) dextroamphetamine-amphetamine ER 30 mg PO 05/15/25 30 mg 24hr capsule,extend release ketorolac 10 mg tablet 10 mg PO Q8H PRN 5 days #14 tabs 05/15/25 Previous Rx's Medication Instructions Recorded docusate sodium 100 mg capsule 100 mg PO BID #20 caps 02/07/25 (Colace) clindamycin HCl 300 mg capsule 300 mg PO TID 9 days #2 7 caps 05/14/25 (Cleocin HCl) ketorolac 10 mg tablet 10 mg PO Q8H PRN 5 days #14 tabs 05/15/25 Allergies Allergy/AdvReac Type Severity Reaction Status Date / Time ibuprofen Allergy Severe Skin Rash Verified 05/15/25 18:44 paroxetine (From Paxil) Allergy Severe throat Verified 05/15/25 18:44 swells penicillin G Allergy Severe Anaphylaxis Verified 05/15/25 18:44 codeine Allergy Intermediate HIVES Verified 05/15/25 18:44 General Stated Complaint: Fever FRITZ: 3 Exam Narrative Exam Narrative: Gen: Awake and alert, ill-appearing HEENT: Non-icteric sclera, PERRL, EOMs are full. Posterior pharynx with some erythema but no significant swelling or asymmetry. No trismus, no woody induration of the floor of the mouth. Right TM clear, left TM wax occluded, no mastoid tenderness or swelling. Neck: Supple, the patient has tenderness to palpation of the bilateral paraspinal muscles of the cervical spine, she does have full range of motion of her neck without evidence of meningismus. Lungs: No apparent respiratory distress, normal respiratory effort. Does have a junky sounding cough during this provider's exam. No wheezing, rhonchi, rales CV: Appears well perfused, heart with regular rate and rhythm, strong distal pulses, no murmurs auscultated Abdomen: Non-distended, soft, nontender. MSK: Moves 4 extremities without apparent limitation in ROM. No peripheral edema, no unilateral calf swelling or tenderness Skin: Visualized skin of the bilateral lateral thighs reveals slight discoloration, and a reticular pattern, does appear similar in color to a mild bruise. No urticaria, the rash is not raised, no nodules palpable. The patient has no petechial changes. Neuro: Normal Gait, no obvious focal deficits or facial asymmetry. Speaks in full, clear sentences. Psych: Appropriate for situation. Course Vital Signs Vital signs: Vital Signs Temperature 36.8 C 05/15/25 18:35 Pulse 87 05/15/25 18:35 Respiratory Rate 22 05/15/25 18:35 Blood Pressure 125/84 05/15/25 18:35 Pulse Oximetry 99 05/15/25 18:35 Temperature 36.8 C 05/15/25 18:46 Temperature Source Oral 05/15/25 18:46 Pulse 87 05/15/25 18:46 Respiratory Rate 22 05/15/25 18:46 Blood Pressure 125/84 05/15/25 18:46 Blood Pressure Position Sitting 05/15/25 18:46 Pulse Oximetry 99 05/15/25 18:46 Oxygen Delivery Method Room Air 05/15/25 18:35 Oxygen Flow Rate 0 05/15/25 18:35 Lab/Test Results Lab/Test Results: 05/15/25 19:06 Blood Blood Culture - Pending 05/15/25 19:06 Blood Blood Culture - Pending Medical Decision Making This is a 34-year-old female patient presenting for evaluation of sore throat, cough, chills and bodyaches. My differential includes but is not limited to viral URI, considered ongoing strep pharyngitis as she has only had approximately 24 hours of her new antibiotic. I have a low concern for deep space neck infection given the reassuring CT obtained yesterday, and the lack of development of trismus, voice changes or inability to swallow. I did consider pneumonia, bronchitis, mononucleosis. The patient does not have fever or tachycardia on triage vital signs, but I did consider sepsis and bacteremia given her systemic symptoms. No urinary symptoms to suggest UTI. We will provide the patient with Tylenol and Toradol for symptomatic management, obtain a Fluvid swab, and labs to include CBC, CMP, magnesium, blood cultures, mono screening, and urinalysis. We will obtain a chest x-ray. I do not see an indication at this time to proceed with a repeat neck imaging, and that I have a low concern for meningitis or encephalitis in this patient given her reassuring exam at this time, and we will hold on empiric neuroimaging or LP. - I reviewed the patient's laboratory studies, which show a very mild leukocytosis to 12 with no anemia or thrombocytopenia. Chemistry panel reveals a borderline low potassium at 3.3, oral repletion was provided. Lactate is not elevated, there is no evidence of kidney or liver dysfunction, and the urinalysis is noninfectious. COVID and influenza test was negative, as well as her monotest. Chest x-ray reviewed by myself, and shows no evidence of pneumonia or other acute abnormalities to explain her symptoms. The patient had some improvement in her symptoms, was provided with a hot pack for her neck and bodyaches. She remained without fever or tachycardia, and clinically I have a very low suspicion for meningitis. However, given her history of Humira use, I did have a shared decision-making conversation with this patient regarding lumbar puncture for evaluation. The patient declines lumbar puncture at this time, which I do not feel is unreasonable given her known strep pharyngitis, and otherwise reassuring evaluation. The patient was counseled on conservative management with Tylenol, and I provided her with a prescription for a short course of oral Toradol given her history of mild allergy to ibuprofen. She is maintaining her hydration, and has the ability to return to care if her blood cultures were to be positive. She is appropriately taking her antibiotics. At this time, the patient has had a full medical evaluation and is safe for discharge to home. They are hemodynamically stable, ambulatory, and tolerating PO. They are understanding of the follow-up plan and return precautions. They left our facility without incident. Erika Reddy MD [facility] All Active Problems (Updated 05/15/25 @ 21:41 by Erika Reddy MD) Upper respiratory infection, viral (Acute) Streptococcal pharyngitis (Acute) Left lateral abdominal pain (Acute) Ovarian cyst (Acute) Panic attack (Acute) History of penicillin allergy (Acute) Family history of thyroid disease in mother (Acute) Mother had thyroidectomy as well as MGM Right leg weakness (Acute) Right ankle instability (Acute) Migraine headache without aura (Acute) Migraine headache with aura (Acute) Migraine with status migrainosus (Acute) 10/22/21. prophylactic medication changed to Propranalol 20mg BID. Pt will f/u with Dr. Nunez Depression with anxiety (Chronic) Idiopathic small fiber peripheral neuropathy (Acute) Medical History Fibromyalgia History of prior with [facility] History of anorexia nervosa PTSD (post-traumatic stress disorder) Pt. states nothing is a potential trigger ADHD Opioid dependence No MAT for 6 years Tobacco use Hx of varicella Idiopathic peripheral neuropathy Surgical History Status post primary low transverse section 10/20/2021. Arrest of labor. 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 Date GA/Weeks # Preg Succ Route Wgt Sex Labor Lgth Anesth esia Location Prov Complic 04/11/13 40 No vaginal 2409.709 g Female 14 [facility] 10/20/21 39 No 4082.331 g Male Ganesh Hernandez Delivery Date: 04/11/13 Last Updated by: Leilani Putnam CNM [facility], Rachelle Delivery Date: 10/20/21 Last Updated by: ARI Hunter
[2025-05-15 19:40] LABS: Abs Immature Grans 0.05 10^3/uL (0.0-0.06); HCT 35.8 % (36.0-46.0); HGB 12.6 g/dL (11.2-15.7); Immature Grans % 0.4 %; MCH 31.9 pg (27.0-33.0); MCHC 35.2 % (32.0-36.0); MCV 91 fL (80-95); MPV 10.0 fL (8.0-11.0); Platelet Count 189 10^3/uL (130-400); RBC 3.95 10^6/uL (3.93-5.22); RDW 12.0 % (11.7-14.6); RDW-SD 40.2 fL; WBC 12.13 10^3/uL (4.4-10.8)
[2025-05-15] MEDS: Ketorolac 15 MG/ML VIAL IVP (19:44)
[2025-05-15] MEDS: ACETAMINOPHEN 1,000 MG/100 ML BAG 400 MG IVPB (19:44)
[2025-05-15 19:47] LABS: Mono Screening Negative (Negative)
[2025-05-15 19:54] LABS: ALT 11 U/L (14-59); AST 14 U/L (15-37); Albumin 3.8 g/dL (3.4-5.0); Alkaline Phosphatase 61 U/L (46-116); Anion Gap 8.2 mmol/L (3-11); BUN 8 mg/dL (7-18); Bilirubin, Total 0.3 mg/dL (0.2-1.0); CO2 29.8 mmol/L (21.0-32.0); Calcium 8.4 mg/dL (8.5-10.1); Chloride 103 mmol/L (98-107); Glucose 84 mg/dL (74-106); Magnesium 1.7 mg/dL (1.8-2.4); Potassium 3.3 mmol/L (3.5-5.1); Sodium 141 mmol/L (136-145); Total Protein 7.3 g/dL (6.4-8.2)
[2025-05-15 20:02] LABS: Glucose Negative (Negative)
--- NOTE | 2025-05-15 20:17 | DI.VRAD_ITS ---
PROCEDURE INFORMATION: Exam: XR Chest Exam date and time: 05/15/2025 7:49 PM Age: 34 years old Clinical indication: Cough and other: Chills; Cough, chills TECHNIQUE: Imaging protocol: Radiologic exam of the chest. Views: 2 views. COMPARISON: CT NECK W 05/14/2025 11:48 AM FINDINGS: Lungs: Unremarkable. No consolidation. Pleural spaces: Unremarkable. No pleural effusion. No pneumothorax. Heart/Mediastinum: Unremarkable. No cardiomegaly. Bones/joints: Unremarkable. IMPRESSION: No acute findings. Dictated and Authenticated by: Tita Mckenna MD. Orderin St. Dwayne James MD
[2025-05-15] MEDS: Potassium Chloride 20 MEQ TABCR 40 MEQ PO (20:37)
[2025-05-15 21:04] VITALS: BP 113/73; PULSE 81; RESP 15; TEMP 36.8; O2SAT 100
[2025-05-15 21:31] LABS: COVID-19 PCR Negative (Negative); RSV PCR Negative (Negative)
[2025-05-15 21:51] VITALS: BP 118/76; PULSE 80; RESP 16; O2SAT 98
== END 2025-05-15 21:52 | disposition home or self-care (01) ==
PROVIDERS: Emergency Provider Emergency Medicine; PCP Nurse Practitioner Family
DX: J06.9 Acute upper respiratory infection, unspecified (principal); J02.0 Streptococcal pharyngitis
CPT/HCPCS: 99284 ×2; 96374; 96375; 36415; 80053; 87040; 87637; 71046; 81003; 83605; 83735; 85025; 86308; J0131; J1885

== ENCOUNTER 2025-05-16 12:39 | Emergency (ER) | payer MEDICAID, SELFPAY ==
[2025-05-16 12:41] VITALS: BP 147/102; PULSE 93; RESP 18; TEMP 36.7; O2SAT 99
--- NOTE | 2025-05-16 12:41 | W.ED.GENAD ---
Discharge Plan Disposition Patient Disposition: Home Discharge Details Clinical Impression: Stiffness of neck Primary Care Provider: Avis Koch ED Provider: Devin Colin Home Meds and New Rx's Prescriptions: Continued lamotrigine 100 mg tablet 300 mg PO DAILY methotrexate 15 mg PO QWEEK Viibryd 10 mg (7)- 20 mg (23) tablets,dose pack 40 dose pk PO DIRECTED Patient Comments: TAKE ONE BY MOUTH EVERY DAY WITH FOOD methylphenidate HCl [Concerta] 36 mg tablet extended release 24hr 36 mg PO DAILY Patient Comments: TAKE ONE TABLET BY MOUTH EVERY MORNING DIRECTED docusate sodium [Colace] 100 mg Capsule 100 mg PO BID Qty: 20 0RF clindamycin HCl [Cleocin HCl] 300 mg capsule 300 mg PO TID 9 Days Qty: 27 0RF dextroamphetamine-amphetamine 30 mg capsule,extended release 24hr 30 mg PO Patient Comments: TAKE ONE CAPSULE BY MOUTH EVERY DAY ketorolac 10 mg tablet 10 mg PO Q8H PRN5 Days Qty: 14 0RF Rx Instructions: maximum total duration of 5 days from all oral, intranasal, or parenteral formulations Discharge Instructions Additional Instructions: You were seen in the emergency department for your neck stiffness. Your lumbar puncture showed no sign of a spinal infection––you do not have meningitis. As we discussed if develop worsening neck stiffness or have any other concerns please return to emergency department. For your pain please take medications as follows: 1. Take acetaminophen (Tylenol), 650 mg every 6 hours [2. Take ibuprofen (Advil), 400 mg every 6 hours.] Stand Alone Forms: Portal Information HPI General Date/Time Provider Initiated Documentation: 05/16/25 12:41. HPI Narrative: MDM This is overall quite well-appearing normothermic and not tachycardic 34-year-old with neck stiffness and bodyaches concerning for the possibility of meningitis versus torticollis for which patient underwent lumbar puncture in the emergency department. No pain out of proportion to suggest necrotizing soft tissue infection. Soft nontender abdomen so not suspicious for intra-abdominal infection. No dysuria or frequency to suggest UTI. Clear equal breath sounds with no cough to suggest pneumonia. No rash to suggest zoster. Patient not immunocompromise to suggest increased risk for encephalitis and she is not altered. She has no posterior oropharynx erythema to suggest worsening strep pharyngitis so I did not reswab. She had no tick exposures to suggest tickborne illness. She had a respiratory viral swab yesterday so did not feel that this required repeating. She was handling her secretions making my suspicion lower for epiglottitis. Nontoxic-appearing so doubt bacterial tracheitis. Patient did consent for lumbar puncture both verbally and through a written consent. Specifically we discussed infection risks, bleeding risks and epidural hematomas and failed procedures. 2:30 PM Basic metabolic panel with no [place]. Low normal BUN and anion gap. CBC with no anemia no thrombocytopenia. Resolved leukocytosis. 3:23 PM CSF glucose within normal limits. CSF glucose also greater than 60% of serum glucose. Normal CSF protein. Reassuring findings thus far against bacterial and aseptic meningitis. 4:30 PM CSF showing colorless fluid. No xanthochromia. 0 RBCs per high-powered field. 1 WBC––not consistent with bacterial. Patient I discussed that she should return if she developed any fevers nausea vomiting did not stop or if she had any other concerns. Her repeat vitals were reassuring. We discussed possibility of benzodiazepines to treat torticollis. Patient preferred to avoid muscle relaxers. Given that she had received dexamethasone I elected to discharge her on acetaminophen. HPI This is a female with a history of recurrent strep infections presenting with symptoms of strep throat. She was diagnosed with strep throat on 05/11/2025 and was initially treated with azithromycin for 3 days. Her symptoms improved by 05/12/2025, but worsened over the weekend, prompting a return visit on 05/14/2025. At this time, her antibiotic was changed, and she was prescribed steroids. She reports increased stiffness, body aches, and a sensation of fever without an actual increase in temperature. She also notes intermittent chest pain associated with elevated heart rate. She has a history of recurrent strep infections, typically responsive to antibiotics within 24 hours. She is not experiencing dysuria or abnormal vaginal discharge and has not engaged in recent oral sex. She reports no tick bites. 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 She has been taking Toradol for pain management, which was administered intravenously last night and orally today, but reports no significant relief. She is currently on Humira for psoriasis and psoriatic arthritis. She has developed sharp lower abdominal pain approximately 1 hour ago. She has noticed unexplained bruising on both legs, which was evaluated last night without any apparent concern. Exam General: Well-appearing in no acute distress speaking in complete sentences. Head: Normocephalic, atraumatic. Eye: Extraocular eye movements intact. No conjunctival injection. No scleral icterus. Ear, nose, mouth, throat: Grossly normal inspection. Normal voice, handling secretions normally. No significant posterior oropharynx erythema. Uvula midline. Neck: Trachea midline. Mildly decreased range of motion in neck. Cardiovascular: Well-perfused distal extremities. Respiratory: Nonlabored respiration. Clear lungs bilaterally. Gastrointestinal: Nondistended abdomen. Musculoskeletal: No edema. Moving all 4 extremities spontaneously. Skin: Normal for age and race, grossly normal temperature and turgor. No acute rash. Neurologic: Alert and appropriate, no apparent acute deficits. GCS 15. Psychiatric: Mood and manner are appropriate. Grooming and personal hygiene are appropriate. Related Data Home Medications Medication Instructions Recorded Confirmed lamotrigine 100 mg tablet 300 mg PO DAILY 03/25/23 05/16/25 vilazodone 10 mg (7)-20 mg (23) 40 dose pk PO DIRECTED 03/25/23 05/16/25 tablets in a titration pack (Viibryd) methotrexate 15 mg PO QWEEK 10/15/24 05/16/25 methylphenidate HCl 36 mg 36 mg PO DAILY 12/13/24 05/16/25 tablet,extended release 24 hr (Concerta) docusate sodium 100 mg capsule 100 mg PO BID #20 caps 02/07/25 05/16/25 (Colace) clindamycin HCl 300 mg capsule 300 mg PO TID 9 days #27 caps 05/14/25 05/16/25 (Cleocin HCl) dextroamphetamine-amphetamine ER 30 mg PO 05/15/25 30 mg 24hr capsule,extend release ketorolac 10 mg tablet 10 mg PO Q8H PRN 5 days #14 tabs 05/15/25 05/16/25 Previous Rx's Medication Instructions Recorded docusate sodium 100 mg capsule 100 mg PO BID #20 caps 02/07/25 (Colace) clindamycin HCl 300 mg capsule 300 mg PO TID 9 days #27 caps 05/14/25 (Cleocin HCl) ketorolac 10 mg tablet 10 mg PO Q8H PRN 5 days #14 tabs 05/15/25 Allergies Allergy/AdvReac Type Severity Reaction Status Date / Time ibuprofen Allergy Severe Skin Rash Verified 05/16/25 12:47 paroxetine (From Paxil) Allergy Severe throat Verified 05/16/25 12:47 swells penicillin G Allergy Severe Anaphylaxis Verified 05/16/25 12:47 codeine Allergy Intermediate HIVES Verified 05/16/25 12:47 General FRITZ: 3 Procedure Lumbar Puncture Date of Procedure: 05/16/25 Time of procedure: 15:10 Provider that performed the procedure: Devin Colin Indication: Diagnostic Patient Consented: Verbally and Written Sterility: Sterile Pre Procedure Medication: Midazolam Amount of pre-procedure medication(mg): 0.5 Local anesthetic: Lidocaine 1% and with Epi Placement Site: L4-L5 Interspace Spinal Needle Type: [employer] 22 Gauge Needle Length: 3.5 inch Lumbar Puncture Procedure: Site Prepped, Sterile Drape Placed, 1% Lidocaine to skin and subcutaneous tissue with 25G needle, Spinal Needle Placed, Positive CSF Flow, CSF Specimen placed into Tubes in Sequential Order and Specimen Labeled, Sent to Lab Patient Position: Sitting Number of Attempts(see previous attempts in note section): 2 Paresthesia: None Ultrasound: Not used Dressing: Other (Band-Aid applied) Procedure Tolerated: Patient tolerated well Procedure Outcome: Successful Procedure Description/Note: Patient tolerated procedure well. PFSH All Active Problems (Updated 05/16/25 @ 16:41 by Devin Colin MD) Stiffness of neck (Acute) Upper respiratory infection, viral (Acute) Streptococcal pharyngitis (Acute) Left lateral abdominal pain (Acute) Ovarian cyst (Acute) Panic attack (Acute) History of penicillin allergy (Acute) Family history of thyroid disease in mother (Acute) Mother had thyroidectomy as well as MGM Right leg weakness (Acute) Right ankle instability (Acute) Migraine headache without aura (Acute) Migraine headache with aura (Acute) Migraine with status migrainosus (Acute) 10/22/21. prophylactic medication changed to Propranalol 20mg BID. Pt will f/u with Dr. Nunez Depression with anxiety (Chronic) Idiopathic small fiber peripheral neuropathy (Acute) Medical History Fibromyalgia History of prior with SGA History of anorexia nervosa PTSD (post-traumatic stress disorder) Pt. states nothing is a potential trigger ADHD Opioid dependence No MAT for 6 years Tobacco use Hx of varicella Idiopathic peripheral neuropathy Surgical History Status post primary low transverse section 10/20/2021. Arrest of labor. 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 Date GA/Weeks # Preg Succ Route Wgt Sex Labor Lgth Anesthesia Location Prov Complic 04/11/13 40 No vaginal 2409.709 g Female 14 [facility] 10/20/21 39 No 4082.331 g Male Jerica Hernandez Delivery Date: 04/11/13 Last Updated by: Leilani Putnam CNM [facility] [place] Delivery Date: 10/20/21 Last Updated by: ARI Hunter
[2025-05-16 13:56] LABS: Abs Immature Grans 0.03 10^3/uL (0.0-0.06); HCT 39.7 % (36.0-46.0); HGB 13.6 g/dL (11.2-15.7); Immature Grans % 0.3 %; MCH 31.2 pg (27.0-33.0); MCHC 34.3 % (32.0-36.0); MCV 91 fL (80-95); MPV 9.7 fL (8.0-11.0); Platelet Count 209 10^3/uL (130-400); RBC 4.36 10^6/uL (3.93-5.22); RDW 12.0 % (11.7-14.6); RDW-SD 40.3 fL; WBC 10.59 10^3/uL (4.4-10.8)
[2025-05-16] MEDS: Dexamethasone 4 MG/ML VIAL 8 MG IVP (13:59)
[2025-05-16] MEDS: Midazolam 2 MG/2 ML VIAL 0.5 MG IVP (13:59)
[2025-05-16 14:19] LABS: Anion Gap 2 mmol/L (3-11); BUN 7 mg/dL (9-23); CO2 31.0 mmol/L (20.0-31.0); Calcium 9.4 mg/dL (8.3-10.6); Chloride 104 mmol/L (98-107); Glucose 87 mg/dL (74-106); Potassium 3.9 mmol/L (3.5-5.1); Sodium 137 mmol/L (136-145)
[2025-05-16] MEDS: Normal Saline 500 ML IV (14:21)
[2025-05-16] MEDS: Lidocaine 2% Multi-Dose W/EPI 1/100,000 20 ML VIAL IJ (14:41)
[2025-05-16 15:16] LABS: Total Protein (CSF) 36 mg/dL (15-45)
[2025-05-16 15:19] LABS: Glucose (CSF) 54 mg/dL (40-70)
[2025-05-16 16:09] VITALS: BP 124/72; PULSE 74; RESP 12; TEMP 37; O2SAT 99
[2025-05-16 16:24] LABS: Xanthochromia Absent
[2025-05-16 16:25] LABS: RBC 0 /mm3 (0-5); WBC 1 /uL (0-5)
[2025-05-17 20:58] LABS: Specimen Source CEREBROSPINAL FLUID
== END 2025-05-16 16:49 | disposition home or self-care (01) ==
PROVIDERS: Emergency Provider Emergency Medicine; PCP Nurse Practitioner Family
DX: M43.6 Torticollis (principal)
CPT/HCPCS: 99284 ×2; 36415; 96374; 96375; 62270; 80048; 82945; 87483; 89050; 89051; 96361; 84157; 85025; 87070; 87205; J1100; J2004; J2250

== ENCOUNTER 2025-05-17 13:59 | Emergency (ER) | payer MEDICAID, SELFPAY ==
[2025-05-17 14:06] VITALS: BP 110/51; PULSE 115; RESP 20; TEMP 36.7; O2SAT 99
--- NOTE | 2025-05-17 14:15 | DI.CT_ITS ---
Exam(s) CT BRAIN NECK CTA EXAM: CT BRAIN NECK CTA CLINICAL HISTORY: neck and head pain. TECHNIQUE: Imaging Protocol: Axial CT angiography was performed with multi- slice acquisition and multi-planar and/or 3D reconstructions. CONTRAST MATERIAL: Intravenous: Omnipaque 350 Contrast volume:70 mL COMPARISON: No exams were available for comparison FINDINGS: CTA Neck W: Aortic arch anatomy: The aortic arch anatomy is conventional and there is no significant stenosis at the origin of the great vessels off of the aortic arch. No intimal flap evident. Anterior circulation: Both common carotid arteries ascend with normal luminal diameters. At the level the carotid bulbs and proximal internal carotid arteries there is minimal plaque without hemodynamically significant stenosis evident. Posterior circulation: Both vertebral arteries originate in conventional fashion off of the subclavian arteries and there is no obvious stenosis at the origin of the vertebral arteries. Both vertebral arteries exhibit normal luminal diameters within the foramen transversarium. Both vertebral arteries contribute to the formation of the basilar artery at the skull base. CTA Brain W: Anterior circulation: Both internal carotid arteries are patent in the skull base-carotid canals as well as within the cavernous sinuses. The supraclinoid aspects of the ICAs are patent. Both A1 segments are patent as are the anterior cerebral arteries and there is no evidence of aneurysm at the level of the anterior communicating artery. Both middle cerebral arteries are patent with no evidence of significant stenosis nor intraluminal thrombus. There also no aneurysms of these vessels. Posterior circulation: The basilar artery ascends with no significant stenosis.. Distally it gives off patent bilateral superior cerebellar arteries. Above this level the basilar artery terminates as patent bilateral posterior cerebral arteries. There is no evidence of aneurysm at the tip of the basilar artery nor elsewhere in the [id number]. CT BRAIN: There is no evidence of intracranial hemorrhage, mass effect, or shift of midline structures. There are no extra-axial fluid collections. Ventricles are not enlarged or shifted. There are no ring enhancing lesions in the brain and no abnormal meningeal enhancement. No evidence of vascular malformation in the brain. IMPRESSION: 1. Patent carotid arteries in the neck. No hemodynamically significant stenosis. No dissection 2. Patent vertebral arteries. No stenosis. No dissection 3. Patent intracranial arteries. 4. No acute intracranial findings. No ring enhancing lesions nor abnormal meningeal enhancement. RADIATION DOSE DELIVERED: 3,957.73mGy.cm Total DLP DATA REPOSITORY: All CT scans at this facility are submitted to the National Radiology Data Registry (NRDR) Dose Index Registry (DIR) with the [employer] (A[employer]). RADIATION OPTIMIZATION: All CT scans at this facility use at least one of these dose optimization techniques: automated exposure control; mA and/or kV adjustment per patient size (includes targeted exams where dose is matched to clinical indication); or iterative reconstruction.
--- NOTE | 2025-05-17 14:17 | DI.CT_ITS ---
Exam(s) CT CERVICAL SPINE RECONS EXAM: CT CERVICAL SPINE RECONS CLINICAL HISTORY: neck pain TECHNIQUE: Multiplanar reconstructions COMPARISON: CT CT NECK W from 05/14/2025 FINDINGS: No evidence of cervical spine fracture or listhesis. No prevertebral soft tissue swelling. All the disc spaces exhibit normal height. Facet joints appear unremarkable. No degenerative changes and no facet joint malalignment. No obvious disc herniations, realizing the limitations of CT scanning in the cervical spine for detecting disc herniations. IMPRESSION: No acute osseous findings in the cervical spinal column. Both CT reports on this patient called by myself to ER physician 05/17/2025 at 4:01 p.m.
--- NOTE | 2025-05-17 14:18 | ED.GENADUL_ITS ---
Discharge Plan Disposition Patient Disposition: Home Condition: Stable Discharge Details Clinical Impression: Neck pain, Head pain Primary Care Provider: Avis Koch ED Provider: Ady Christian Home Meds and New Rx's Prescriptions: New cyclobenzaprine 10 mg tablet 10 mg PO TID PRNQty: 20 0RF Continued lamotrigine 100 mg tablet 300 mg PO DAILY methotrexate 15 mg PO QWEEK Viibryd 10 mg (7)- 20 mg (23) tablets,dose pack 40 dose pk PO DIRECTED Patient Comments: TAKE ONE BY MOUTH EVERY DAY WITH FOOD methylphenidate HCl [Concerta] 36 mg tablet extended release 24hr 36 mg PO DAILY Patient Comments: TAKE ONE TABLET BY MOUTH EVERY MORNING DIRECTED docusate sodium [Colace] 100 mg Capsule 100 mg PO BID Qty: 20 0RF clindamycin HCl [Cleocin HCl] 300 mg capsule 300 mg PO TID 9 Days Qty: 27 0RF dextroamphetamine-amphetamine 30 mg capsule,extended release 24hr 30 mg PO Patient Comments: TAKE ONE CAPSULE BY MOUTH EVERY DAY ketorolac 10 mg tablet 10 mg PO Q8H PRN5 Days Qty: 14 0RF Rx Instructions: maximum total duration of 5 days from all oral, intranasal, or parenteral formulations Discharge Instructions Additional Instructions: Your imaging did not show any concerning findings at this time. If your pain continues follow-up with your primary care provider within 1 week. If you feel more ill or have new symptoms such as high fevers return to the emergency department for reevaluation. Stand Alone Forms: Portal Information, Work Release HPI General Mode of arrival: ambulatory . Date/Time Provider Initiated Documentation: 05/17/25 14:01 . Limitations to Documentation: no limitations . Information obtained by: patient . History of Present Illness 34 year old F presents to the emergency department with the chief complaint of neck and head pain, described as moderate, Quality is described as sharp, and is localized to the head and neck. Patient started experiencing this day(s) (3) and it has been constant. No relieving factors improve symptom(s), No exacerbating factors reported . Patient notes denies chest pain and shortness of breath. Patient did receive the following treatments prior to arrival, none Related Data Home Medications Medication Instructions Recorded Confirmed lamotrigine 100 mg tablet 300 mg PO DAILY 03/25/2306/29 vilazodone 10 mg (7)-20 mg (23) 40 dose pk PO DIREC ROSALIND 03/25/23 05/17/25 tablets in a titration pack (Viibryd) methotrexate 15 mg PO QWEEK 10/15/2405/06 methylphenidate HCl 36 mg 36 mg PO DAILY 12/13/2405/06 tablet,extended release 24 hr (Concerta) docusate sodium 100 mg capsule 100 mg PO BID #20 caps 02/07/25 05/17/25 (Colace) clindamycin HCl 300 mg capsule 300 mg PO TID 9 days #2 7 caps 05/14/25 05/17/25 (Cleocin HCl) dextroamphetamine-amphetamine ER 30 mg PO 05/15/25 30 mg 24hr capsule,extend release ketorolac 10 mg tablet 10 mg PO Q8H PRN 5 days #14 tabs 05/15/25 05/17/25 cyclobenzaprine 10 mg tablet 10 mg PO TID PRN #20 tabs 05/17/25 Previous Rx's Medication Instructions Recorded docusate sodium 100 mg capsule 100 mg PO BID #20 caps 02/07/25 (Colace) clindamycin HCl 300 mg capsule 300 mg PO TID 9 days #2 7 caps 05/14/25 (Cleocin HCl) ketorolac 10 mg tablet 10 mg PO Q8H PRN 5 days #14 tabs 05/15/25 cyclobenzaprine 10 mg tablet 10 mg PO TID PRN #20 tabs 05/17/25 Allergies Allergy/AdvReac Type Severity Reaction Status Date / Time ibuprofen Allergy Severe Skin Rash Verified 05/17/25 14:08 paroxetine (From Paxil) Allergy Severe throat Verified 05/17/25 14:08 swells penicillin G Allergy Severe Anaphylaxis Verified 05/17/25 14:08 codeine Allergy Intermediate HIVES Verified 05/17/25 14:08 General Stated Complaint: Nk/Back Pain FRITZ: 3 Review of Systems All systems reviewed & are unremarkable except as noted in HPI and below Constitutional Constitutional: Denies chills, Denies fever(s), Reports headache(s) and Denies weakness Eyes Eyes: Denies loss of vision ENT Ears, Nose, Mouth, and Throat: Reports headache(s) Cardiovascular Cardiovascular: Denies chest pain and Denies dyspnea Respiratory Respiratory: Denies cough and Denies dyspnea Gastrointestinal Gastrointestinal: Denies abdominal pain and Denies vomiting Neurologic Neurologic: Denies abnormal speech, Reports headache(s), Denies loss of vision and Denies weakness Exam Const General: no acute distress Orientation: alert [facility] Head: normal to inspection Ears: external ears normal General nose exam: external nose normal Mouth: moist mucous membranes Eyes General: appearance normal, both eyes and all related structures Neck Neck: normal visual inspection, no lymphadenopathy and trachea midline Resp Effort & Inspection: normal respiratory effort and able to speak in complete sentences Cardio Rate: regular rate Skin General skin exam: no rashes or lesions noted Neuro General: patient alert and patient oriented x3 Extrem General: normal to inspection Psych Mental Status: mental status grossly normal Course Vital Signs Vital signs: Vital Signs Temperature 36.7 C 05/17/25 14:06 Pulse 115 H 05/17/25 14:06 Respiratory Rate 20 05/17/25 14:06 Blood Pressure 110/51 L 05/17/25 14:06 Pulse Oximetry 99 05/17/25 14:06 Temperature 36.7 C 05/17/25 14:06 Pulse 115 H 05/17/25 14:06 Respiratory Rate 20 05/17/25 14:06 Blood Pressure 110/51 L 05/17/25 14:06 Blood Pressure Position Sitting 05/17/25 14:06 Pulse Oximetry 99 05/17/25 14:06 Oxygen Delivery Method Room Air 05/17/25 14:06 Oxygen Flow Rate 0 05/17/25 14:06 Medical Decision Making 34-year-old female was diagnosed with strep throat on 11 May and was seen on the of this month for neck pain, CT neck to evaluate for abscess which was negative on the , yesterday had an LP but did not show signs concerning for meningitis comes in with continued neck pain and also headache. She denies any high fevers, changes in speech or vision. No chest pain or abdominal pain. She has no visible or palpable deformities of the neck. She has reproducible tenderness over the posterior neck of the paraspinous muscles. She has limited range of motion due to pain. Nerves II through XII are intact. No hemorrhage given to an LP yesterday which was in the cornea. Given the continued pain I am going to do a CTA of the neck and brain to evaluate for possible dissection or aneurysm and also include venous phase to evaluate for entities such as venous thrombosis. She denies any IV drug use and has not had any fevers so I doubt entities such as spinal epidural abscess. Labs show mild leukocytosis of 12 which is also present on prior labs. CT imaging shows no concerning findings. No dissections, no aneurysms, no evidence of cerebral venous stenosis. She is feeling mildly better and has full range of motion of her neck. I suspect this is musculoskeletal neck pain. she has not been taking a muscle relaxer and does want to try this now so we will prescribe cyclobenzaprine. Advised to follow-up with PCP and return precautions given. Differential Diagnosis Differential Diagnosis: torticollis, migraine, CVT, dissection PFSH All Active Problems (Updated 05/17/25 @ 16:28 by Ady Christian MD) Head pain (Acute) Neck pain (Acute) Stiffness of neck (Acute) Upper respiratory infection, viral (Acute) Streptococcal pharyngitis (Acute) Left lateral abdominal pain (Acute) Ovarian cyst (Acute) Panic attack (Acute) History of penicillin allergy (Acute) Family history of thyroid disease in mother (Acute) Mother had thyroidectomy as well as MGM Right leg weakness (Acute) Right ankle instability (Acute) Migraine headache without aura (Acute) Migraine headache with aura (Acute) Migraine with status migrainosus (Acute) 10/22/21. prophylactic medication changed to Propranalol 20mg BID. Pt will f/u with Dr. Nunez Depression with anxiety (Chronic) Idiopathic small fiber peripheral neuropathy (Acute) Medical History Fibromyalgia History of prior with [facility]GA History of anorexia nervosa PTSD (post-traumatic stress disorder) Pt. states nothing is a potential trigger ADHD Opioid dependence No MAT for 6 years Tobacco use Hx of varicella Idiopathic peripheral neuropathy Surgical History Status post primary low transverse section 10/20/2021. Arrest of labor. Family History Mother Devic's syndrome Headache Sister Cancer bone marrow cancer Social History Smoking/Tobacco Use Status: Current-Occasional Tobacco Type: e-cigarettes Smoking risk assessment performed?: Yes Alcohol Intake: current Alcohol Intake frequency: a few times a month Alcohol type: beer Drug use: Occasionally Substance use type: marijuana Details: couple times a week Adopted: No Household members: children Housing: house Number of Children: 2 current occupation: [employer] working Pets and animals: Yes (hermit crab) Current gender identity: female What is your relationship status?: never Panel score (0-1 are the most socially isolated patients): 0 What type of physical activity do you participate in: none Seatbelt use: sometimes Do you feel safe at home: Yes Do you feel safe in your relationship?: Yes History History 2 Para 2 Hx # Term Pregnancies 2 Multiple births 0 Hx # Pregnancies 0 Ectopic pregnancies 0 AB induced 0 Hx Number of Living Children 2 AB spontaneous 0 Past Pregnancies Del. Date GA/Weeks # Preg Succ Route Wgt Sex Labor Lgth Anesth esia Location [facility] [place] 04/11/13 40 No vaginal 2409.709 g Female 14 [facility] [place] 10/20/21 39 No 4082.331 g Male Ganesh Hernandez Delivery Date: 04/11/13 Last Updated by: Leilani Putnam CNM SGA, Rachelle Delivery Date: 10/20/21 Last Updated by: ARI Hunter
[2025-05-17 14:41] LABS: Abs Immature Grans 0.04 10^3/uL (0.0-0.06); HCT 38.1 % (36.0-46.0); HGB 13.6 g/dL (11.2-15.7); Immature Grans % 0.3 %; MCH 31.7 pg (27.0-33.0); MCHC 35.7 % (32.0-36.0); MCV 89 fL (80-95); MPV 9.6 fL (8.0-11.0); Platelet Count 225 10^3/uL (130-400); RBC 4.29 10^6/uL (3.93-5.22); RDW 11.9 % (11.7-14.6); RDW-SD 38.5 fL; WBC 12.55 10^3/uL (4.4-10.8)
[2025-05-17] MEDS: ACETAMINOPHEN 1,000 MG/100 ML BAG 400 MG IVPB (14:45)
[2025-05-17] MEDS: Prochlorperazine 10 MG/2 ML VIAL IVP (14:45)
[2025-05-17] MEDS: diphenhydrAMINE 50 MG/ML VIAL 25 MG IVP (14:45)
[2025-05-17] MEDS: Normal Saline 1,000 ML 1000 ML IV (14:46)
[2025-05-17 14:59] LABS: Magnesium 1.9 mg/dL (1.6-2.6)
[2025-05-17 15:01] LABS: ALT 14 U/L (10-49); AST 13 U/L (<34); Albumin 4.4 g/dL (3.4-5.0); Alkaline Phosphatase 60 U/L (46-116); Anion Gap 7.6 mmol/L (3-11); BUN 13 mg/dL (9-23); Bilirubin, Total 0.30 mg/dL (0.2-1.2); CO2 28.4 mmol/L (20.0-31.0); Calcium 8.9 mg/dL (8.3-10.6); Chloride 106 mmol/L (98-107); Glucose 101 mg/dL (74-106); Potassium 3.6 mmol/L (3.5-5.1); Sodium 142 mmol/L (136-145); Total Protein 7.0 g/dL (5.7-8.2)
[2025-05-17 15:04] LABS: TSH (W/Ref FT4) 2.34 uIU/mL (0.55-4.78)
[2025-05-17] MEDS: Normal Saline - Diluent 50 ML VIAL IJ (15:36)
[2025-05-17] MEDS: Omnipaque 350 MG/ML 100 ML BTL IJ (15:36)
[2025-05-17 16:06] VITALS: BP 99/65; PULSE 68; TEMP 36.4; O2SAT 100
[2025-05-17 16:29] VITALS: BP 124/65; PULSE 84; TEMP 36.4; O2SAT 100
[2025-05-17] MEDS: Cyclobenzaprine 10 MG TAB, 3 TABS/BTL PO (16:44)
== END 2025-05-17 16:48 | disposition home or self-care (01) ==
PROVIDERS: Emergency Provider Emergency Medicine; PCP Nurse Practitioner Family
DX: M54.2 Cervicalgia (principal); R51.9 Headache, unspecified; M43.6 Torticollis
CPT/HCPCS: 70496; 70498; 72125; 80053; 96365; 96366; 96375; 99285; 83735; 84443; 85025; 99284; J0131; J0780; J1200; J3490